=== PATIENT | female | born 1970 | race Caucasian/White ===

== ENCOUNTER 2024-12-22 12:36 | Inpatient (IN) | payer OTHER, MEDICAID, SELFPAY ==
[2024-12-22] VITALS (8 sets, daily range): BP systolic 71–106; BP diastolic 44–56; PULSE 92–110; RESP 18–24; TEMP 37.1; O2SAT 94–100; BMI 54.8
--- NOTE | 2024-12-22 13:04 | XR_ITS ---
Examination: Venous duplex lower extremity sonogram, bilateral. Date and time of exam: December 22, 2024 1309 hours INDICATIONS: Onset bilateral leg pain today Technique: Multiple sonographic images of the deep venous system have been obtained. B-mode/2-D grayscale imaging of vascular structures and Doppler spectral analysis (waveforms) and color performed Both legs are examined. Findings: Deep venous systems do not demonstrate abnormal echogenicity. No diagnostic visualization distal right superficial femoral right posterior tibial veins, left popliteal left peroneal left posterior tibial veins All visualized deep veins exhibit compressibility. All visualized deep veins exhibit augmentation. Impression: Limited study, no DVT demonstrated
--- NOTE | 2024-12-22 13:06 | XR_ITS ---
Examination: AP chest single view Technique one AP portable semiupright chest single view Date and time: December 22, 2024, 11:40 PM INDICATIONS: Patient fell 3 weeks ago with injury to the chest, chest pain FINDINGS: Minor prominence left ventricle No pneumothorax. Clavicles ribs appear intact IMPRESSION: No pneumothorax pulmonary contusion or hemothorax
--- NOTE | 2024-12-22 13:06 | EKG_ITS ---
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: : 1970 Requested By: Johann Meyer Order Number: [id number] Reading MD: Johann Meyer Measurements Intervals Superior Rate: 95 P: 27 MO: 147 QRS: -9 QRSD: 87 T: -22 QT: 336 QTc: 423 Interpretive Statements SINUS RHYTHM LOW QRS VOLTAGE IN PRECORDIAL LEADS [QRS DEFLECTION < 1.0 mV IN CHEST LEADS] POSSIBLE ANTERIOR MYOCARDIAL INFARCTION , OF INDETERMINATE AGE [30 ms Q WAVE IN V3/V4, OR R < 0.2 mV IN V4] ST ELEVATION, CONSIDER SEPTAL INJURY [MARKED ST ELEVATION W/O NORMALLY INFLECTED T-WAVE IN V1/V2] TYPE 3 BRUGADA PATTERN (NON-DIAGNOSTIC) [COVED/SADDLEBACK ST ELEVATION > 0.1mV IN 2 OF V1-3] ACUTE AL Compared to ECG 09/22/2020 13:25:23 ST (T wave) deviation now present Myocardial infarct finding still present /store/S0/[id number]/[id number].pdf
--- NOTE | 2024-12-22 13:07 | XR_ITS ---
Examination: Tibia-Fibula, left , 2 views Technique: Tibia-fibula AP lateral 2 views Date and time of exam: December 18,025 1341 hours INDICATIONS: Patient fell 2 weeks ago with injury to the left lower leg, left lower leg pain. FINDINGS: Bone detail reduced by the patient's size Cortical irregularity involving the proximal tibia on the lateral side Old fracture off the fibular tip IMPRESSION: No definite acute fracture
--- NOTE | 2024-12-22 13:09 | PD.EDLOWEX ---
Lower Extremity Injury RME/HPI General Chief Complaint: General Adult/Misc Complain Stated Complaint: BILATERAL LEG PAIN Time Seen by Provider: 12/22/24 12:59 Arrival date/time: 12/22/24 12:36 RME / HPI RME / HPI Narrative: 54-year-old female patient with significant history of bilateral chronic lymphedema, nonambulatory for more than 9 years, wheelchair-bound, hypertension diabetes mellitus, seizure disorder, was brought in by EMS for evaluation regarding worsening left lower leg swelling, chronic wound to the left lower leg, and pain to the left lower leg. Patient denies any fever denies any abdominal pain denies any chest pain. Patient told me that yesterday her left lower leg got stuck in the bed. Been taking Tylenol for the pain. Related Data Home Medications ?Medication ?Instructions ?Recorded ?Confirmed carbamazepine 100 mg 100 mg PO BID 09/23/20 09/23/20 tablet,extended release,12 hr Allergies Allergy/AdvReac Type Severity Reaction Status Date / Time aspirin Allergy Severe Difficulty Verified 04/18/22 18:45 Breathing codeine Allergy Severe Difficulty Verified 04/18/22 18:45 Breathing levetiracetam (From Keppra) Allergy Severe Difficulty Verified 04/18/22 18:45 Breathing morphine Allergy Severe Difficulty Verified 04/18/22 18:45 Breathing Penicillins Allergy Severe Difficulty Verified 04/18/22 18:45 Breathing Review of Systems Review of Systems Narrative Review of Systems: Review of system reviewed and within normal limits except mentioned in HPI ED Exam Narrative Physical exam: VITAL SIGNS: Reviewed. GENERAL APPEARANCE: Alert and interactive, follows commands, no acute distress, HEAD AND FACE: Non-traumatic. ENT: PERRL, pink conjunctivitis, eyelid no trauma, Mucous membrane moist. NECK: Supple, nontender, no nuchal rigidity. CHEST: No tenderness, no crepitus, no paradoxical movement, no retractions. LUNGS: Clear, well ventilated, symmetric, no rales, no wheezing, no ronchi, no stridor, good breath sounds bilaterally. HEART: Regular rate, regular rhythm, no murmur, no gallops. ABDOMEN: Soft, positive bowel sounds, nondistended, no guarding, nontender, no rebound, no masses, RECTAL: Deferred. GENITAL: Deferred. NEUROLOGICAL: Gross motor function intact sensory function intact, Appropriate for age. MUSCULOSKELETAL: low back nontender, full range of motion. EXTREMITIES:+ Significant bilateral lower leg swelling, abrasion noted to the lateral leg on the left, with dressing, diffuse tenderness whole lower extremity left. Mild erythema, limited range of motion. Bilateral distal pulses nonpalpable due to leg swelling. SKIN: Color pink, dry, no rash, no lacerations, no abrasions, no contusions. LYMPHATICS: Deferred. Course Quality Measures none Orders Category Date Time Status COVID-19 Screening Questionnaire NOW Care 12/22/24 16:32 Active Decision to Admit X1 Care 12/22/24 16:32 Active EKG (ED ONLY) *Do not use* NOW Care 12/22/24 13:06 Completed Occult Blood,Stool (Nursing) ONCE Care 12/22/24 13:04 Active Referral Wound Care Stat Cons 12/22/24 16:04 Active EKG (ED Only) Stat Exams 12/22/24 13:06 Ordered US venous doppler LE BI Stat Exams 12/22/24 13:04 Completed XR chest 1V Stat Exams 12/22/24 13:06 Completed XR tibia fibula LT 2V Stat Exams 12/22/24 13:07 Completed BNP [B-Type Natriuretic Peptide] Stat Lab 12/22/24 14:15 Completed Blood Culture (Lab) Stat Lab 12/22/24 14:10 Received CBC Stat Lab 12/22/24 14:15 Completed Comprehensive Metabolic Panel Stat Lab 12/22/24 14:15 Completed Lactate (Lactic Acid) Stat Lab 12/22/24 14:15 Results Procalcitonin Stat Lab 12/22/24 14:15 Completed Prothrombin Time with INR Stat Lab 12/22/24 14:15 Completed Type and Screen Stat Lab 12/22/24 14:15 Completed Urinalysis Stat Lab 12/22/24 13:04 Ordered VBG [Venous Blood Gas] Stat Lab 12/22/24 16:22 Ordered Clindamycin 900Mg Ivpb [Cleocin/D5w Ivpb] 900 mg Med 12/22/24 14:57 Discontinued Pre-Mixed [Pre-mixed Bag] 1 bag IV X1 Ringers Lactated 1000 ml [Lactated Ringers] 1,000 ml Med 12/22/24 14:53 Discontinued IV 999 mls/hr Vancomycin/Ns 1 gm Ivpb 200 ml Med 12/22/24 14:54 Discontinued IV X1 fentaNYL INJ [Sublimaze Inj] Med 12/22/24 14:53 Discontinued 50 mcg IVP X1 ONE Vital Signs Vital signs: Vital Signs Temperature 98.8 F 12/22/24 14:27 Pulse Rate 92 12/22/24 14:27 Respiratory Rate 18 12/22/24 14:27 Blood Pressure 92/56 L 12/22/24 14:27 Pulse Oximetry (%) 96 12/22/24 14:27 Oxygen Delivery Method Room Air 12/22/24 14:27 Extremity Injury, Lower MDM Narrative MDM Narrative:: 54-year-old female patient with significant history of bilateral chronic lymphedema, nonambulatory for more than 9 years, wheelchair-bound, hypertension diabetes mellitus, seizure disorder, was brought in by EMS for evaluation regarding worsening left lower leg swelling, chronic wound to the left lower leg, and pain to the left lower leg. Patient denies any fever denies any abdominal pain denies any chest pain. Patient told me that yesterday her left lower leg got stuck in the bed. Been taking Tylenol for the pain. Ultrasound bilateral lower extremities negative for DVT, x-ray of the left lower extremity is negative for abnormality. No osseous abnormality, no gas noted on the soft tissue. Laboratory workup is significant for lactic acid of 7.6, creatinine 1.8 potassium 3.1. Pro-Umberto was also noted to be 87. Chest x-ray showed no acute pathology noted. EKG showed sinus rhythm, ventricular rate 96 bpm, no ST segment elevation depression noted. Patient received clindamycin IV, IV fluids, fentanyl IV,. Pitts catheter was inserted. Plan of care discussed with the patient, who needs to be admitted for further management. I placed a referral to wound care nurse. Patient data External records reviewed:: None Clinical information provided by:: patient Social determinants that could affect healthcare access:: none Patient has the following chronic illnesses:: Hypertension diabetes mellitus, nonambulatory, wheelchair-bound, bilateral chronic leg lymphedema. How is presenting disease/condition affected by chronic disease/condition?: exacerbated by Evaluation data The following diagnostics were reviewed and interpreted by me:: lab results, radiology exam(s) and EKG tracing(s) Lab and/or radiology exams considered but not ordered:: None Interpretation Summary: See results MDM Medications / Prescriptions Medications or Prescriptions considered but not ordered:: None Medication administrations:: Medication Administration History Discontinued Medications Fentanyl Citrate (Fentanyl Cit Inj 50 Mcg/Ml Amp 2ml) 50 mcg IVP X1 ONE Stop: 12/22/24 14:54 Last Admin: 12/22/24 15:56 Dose: 50 mcg Documented By: KITTY Lactated Ringer's (Lactated Ringers) 1,000 mls @ 999 mls/hr IV .Q1H1M ONE Stop: 12/22/24 15:53 Vancomycin/Sodium Chloride (Vancomycin/Ns 1 Gm Ivpb) 200 mls @ 120 mls/hr IV X1 ONE Stop: 12/22/24 16:33 Clindamycin Phosphate 900 mg/ (IV Miscellaneous Supplies) 50 mls @ 50 mls/hr IV X1 ONE Stop: 12/22/24 15:56 Last Admin: 12/22/24 15:58 Dose: 50 mls/hr Documented By: KITTY Clindamycin IV, IV fluids, fentanyl Consultations Consultation(s) initiated? (list below): No Diagnosis Extremity Injury, Lower Differential Diagnosis: other (Left lower leg cellulitis, chronic lymphedema bilateral lower extremity, diabetes hypertension) Most likely diagnosis given after review of the tests above:: Bilateral lower leg chronic lymphedema, lower leg cellulitis of the left Admission Indicated Admission indicated?: indicated Admission Request Was there a request for admission?: Yes Admission Attestation Admission request attestation: Discussed case with [Dr. Anne] from Hospitalist service regarding admission. Discussed patients ED course, exam findings, labs, and radiology results. The Hospitalist [agrees] to accept the patient for admission. Disposition Plan Disposition Plan: Admit Discharge Plan Plan Patient Disposition: Admit Acute Care w/in Hospital Discharge Disposition comment: Stable Prescriptions/Referrals Prescriptions/Med Rec: No Action carbamazepine 100 mg Tablet Extended Release 12 Hr 100 mg PO BID Referrals: Lee Singer MD [Primary Care Provider] - In 1 week Problem List Clinical Impression: Cellulitis of left leg, Lymphedema Patient/Caregiver Discharge Instructions Discharge Activity: activity as tolerated Print Language: Korean Stand Alone Forms: Ira Award Info., Patient Portal Info Letter
[2024-12-22 14:29] LABS: Lactate (Lactic Acid) 7.6 mMol/L (0.4-2.0)
[2024-12-22 14:32] LABS: Basophils # (Auto) 0.0 Thou/mm3 (0.0-0.2); Basophils % (Auto) 1 % (0-2.5); Eosinophils # (Auto) 0.0 Thou/mm3 (0.0-0.5); Eosinophils % (Auto) 0 % (0-10); Hematocrit 39.2 % (36.0-46.0); Hemoglobin 12.4 g/dL (12.0-16.0); Immature Granulocytes Auto 0.02 Thou/mm3 (0.00-0.00); Lymphocytes # (Auto) 0.2 Thou/mm3 (1.0-4.8); Lymphocytes % (Auto) 3 % (10-50); Mean Corpuscular HGB Conc 31.6 g/dl (31.0-37.0); Mean Corpuscular Hemoglobin 25.5 pg (25.0-35.0); Mean Corpuscular Volume 81 fL (80-100); Monocytes # (Auto) 0.2 Thou/mm3 (0.0-0.8); Monocytes % (Auto) 3 % (0-12); Neutrophils # (Auto) 5.4 Thou/mm3 (1.8-7.7); Neutrophils % (Auto) 93 % (37-80); Nucleated Red Blood Cell # 0.00 Thou/mm3 (0.00-0.00); Nucleated Red Blood Cell % 0 /100 WBC (0); Platelet Count 175 Thou/mm3 (140-440); RDW Standard Deviation 46.8 fL (36.4-46.3); Red Blood Count 4.87 Miln/mm3 (4.00-5.20); White Blood Count 5.8 Thou/mm3 (3.6-11.0)
[2024-12-22 14:45] LABS: INR 1.2 (0.9-1.3); Prothrombin Time 12.8 Seconds (9.0-12.2)
[2024-12-22 14:50] LABS: B-Type Natriuretic Peptide 385 pg/mL (0-100)
[2024-12-22 15:04] LABS: Alanine Aminotransferase 14 U/L (10-49); Albumin, Serum 3.8 gm/dL (3.5-5.0); Albumin/Globulin Ratio 1.6 (1.2-2.2); Alkaline Phosphatase 68 U/L (46-116); Anion Gap 16 (7-16); Aspartate Amino Transferase 21 U/L (0-34); BUN/Creatinine Ratio 8 Ratio (12-20); Bilirubin,Total 2.2 mg/dL (0.3-1.2); Blood Urea Nitrogen 14 mg/dL (9-23); Calcium 8.8 mg/dL (8.3-10.6); Calcium (Corrected) 9.0 mg/dL (8.5-10.1); Carbon Dioxide 21.1 mMol/L (20.0-31.0); Chloride 102 mMol/L (98-107); Creatinine (Component) 1.8 mg/dL (0.6-1.3); Estimated Creatinine Clearance 46.5 mL/min (>60); Globulin 2.4 gm/dL (2.3-3.5); Glucose 126 mg/dL (74-106); Osmolality,Calculated 280 (275-295); Potassium 3.1 mMol/L (3.4-5.1); Sodium 139 mMol/L (136-145); Total Protein 6.2 gm/dL (5.7-8.2); eGFR 33 See Note
[2024-12-22 15:31] LABS: Procalcitonin 87.05 ng/ml (0.0-0.49)
[2024-12-22] MEDS: fentaNYL CIT INJ 50 mCg/ML AMP 2ML IVP (15:56)
[2024-12-22] MEDS: CLINDAMYCIN 900MG IVPB 900 MG in PRE-MIXED 1 BAG 50 MG IV (15:58)
[2024-12-22 16:22] LABS: Band Neutrophils (Manual) 45 % (0-6); Lymphocytes (Manual) 4 % (20-44); Monocytes (Manual) 12 % (2-9); Myelocytes (Manual) 5 % (0-0); Neutrophils (Manual) 30 % (50-70)
[2024-12-22 16:23] LABS: Metamyelocytes (Manual) 4 % (0-0)
[2024-12-22 17:01] LABS: Base Excess, Venous -5 (-3-3); O2 Saturation, Venous 46 % (96-97); PCO2, Venous 37 mmHg (36-56); PO2, Venous 27 mmHg (15-58); pH, Venous 7.35 (7.33-7.66)
[2024-12-22] MEDS: RINGERS LACTATED 1000 ML 1,000 ML 999 ML IV ×3 (17:16→21:34)
--- NOTE | 2024-12-22 17:18 | PD.RESHP ---
Documentation for date of: 12/22/24 HPI History of Present Illness Chief complaint: Left leg pain History of present illness: 54-year-old female with past medical history of prior IL?, Insulin-dependent type 2 diabetes, lymphedema, lipedema, asthma, epilepsy, morbid obesity, nonambulatory for 9 years, wheelchair-bound presenting to the ED on 12/22 with left lower extremity pain and oozing. Patient states that about 3 weeks ago she slammed her left leg on a brick wall and ever since that time her left leg has progressively worsened and started oozing. Patient lives at home and is largely immobile and requires agility instructor in the form of her grandson who takes care of her. Patient has not been seen by outpatient wound care as she says her motorized wheelchair has been broken. Patient also states that she has had a heart attack in the past but has never followed up with cardiology. Patient also has asthma but she denies having any shortness of breath at this time, uses albuterol twice a week. Medical history: As stated above Surgical history: Denies Allergies: Aspirin, codeine, Keppra, morphine, penicillin causes dyspnea Medications: Pending med rec Family history: Patient's mother and grandmother from breast cancer, denies having any family history of heart attack or stroke Social history: Patient lives at home, grandson agility instructor, denies any alcohol, tobacco or illicit drug use ROS: All 12 systems assessed and the patient denies unless otherwise stated in HPI In the ED, patient presented mildly hypotensive 92/56, heart rate of 92, respiratory rate of 18, afebrile satting 96 on room air. Pertinent lab findings include WBC of 5.8, potassium 3.1, creatinine 1.8, eGFR of 33, lactic acid initially 7.1 uptrending to 8.0, T. bili of 2.2, AST 21, ALT 14, BNP of 385, Pro-Umberto of 87. Urinalysis shows signs of urinary tract infection. Venous Doppler study is negative for DVT, chest x-ray does not show any active disease and tibia/fibula x-ray shows no acute fracture. Patient will be admitted for sepsis secondary to urinary tract infection and cellulitis will be treated with IV antibiotics and IV fluid resuscitation. Exam Vital Signs Temp Pulse Resp BP Pulse Ox O2 Del Method 98.8 F 96 18 106/47 L 100 Room Air 12/22/24 14:27 12/22/24 15:57 12/22/24 15:57 12/22/24 15:57 12/22/24 15:57 12/22/24 15:57 Narrative Exam Physical Exam: GENERAL: Awake, answering questions appropriately, appears stated age, morbidly obese HEENT: NC/AT. Moist mucosa. PERRLA/EOMI. CARDIO: Heart RRR, no obvious murmurs, no JVD. PULM: Distant lung sounds. Difficult to discern on auscultation of clear, no crackles/Rales/wheezing auscultated GI: Abdomen soft, morbidly obese, nontender on palpation of all 4 quadrants, borborygmi apparent SKIN/MSK/EXT: Upper extremity cyanosis on fingertips. Significant bilateral lipedema with lichenification, left leg has serosanguineous oozing wound which is wrapped. Unable to assess pedal pulses but patient able to move all 4 extremities NEURO: Oriented x3, no focal neurologic deficits Results: Labs 12/23/24 09:46 12/23/24 17:53 Labs: Short CBC 12/22/24 Range/Units 14:15 WBC 5.8 (3.6-11.0) Thou/mm3 Hgb 12.4 (12.0-16.0) g/dL Hct 39.2 (36.0-46.0) % Plt Count 175 (140-440) Thou/mm3 BMP 12/22/24 14:15 Sodium 139 Potassium 3.1 L Chloride 102 Carbon Dioxide 21.1 BUN 14 Creatinine 1.8 H Glucose 126 H Calcium 8.8 Liver Function 12/22/24 Range/Units 14:15 Total Bilirubin 2.2 H (0.3-1.2) mg/dL AST 21 (0-34) U/L ALT 14 (10-49) U/L Alkaline Phosphatase 68 (46-116) U/L Albumin 3.8 (3.5-5.0) gm/dL ABG Interpretation ABG results: 12/22/24 16:49 VBG pH 7.35 VBG pCO2 37 VBG pO2 27 VBG Base Excess -5 L Quality Measures Quality Measures none Medications Home Medications and Allergies Home Medications ?Medication ?Instructions ?Recorded ?Confirmed ?Type carbamazepine 100 mg 100 mg PO BID 09/23/20 09/23/20 History tablet,extended release,12 hr albuterol sulfate 90 mcg/actuation 2 puff inhalation Q4H PRN 12/23/24 12/23/24 History aerosol inhaler shortness of breath or wheezing atorvastatin 40 mg tablet 40 mg PO ONCE HS 12/23/24 12/23/24 History docusate sodium 100 mg capsule 100 mg PO DAILY PRN constipation 12/23/24 12/23/24 History ergocalciferol (vitamin D2) 1,250 50,000 unit PO .once a week 12/23/24 12/23/24 History mcg (50,000 unit) capsule ferrous sulfate 325 mg (65 mg 325 mg PO DAILY 12/23/24 12/23/24 History iron) tablet (FeroSul) insulin aspart U-100 100 unit/mL 20 unit subcut .with meals 12/23/24 12/23/24 History (3 mL) subcutaneous pen losartan 50 mg tablet 50 mg PO DAILY 12/23/24 12/23/24 History omeprazole 20 mg capsule,delayed 20 mg PO HS 12/23/24 12/23/24 History release tretinoin 0.025 % topical cream applic topical DAILY UD 12/23/24 History Allergies Allergy/AdvReac Type Severity Reaction Status Date / Time aspirin Allergy Severe Difficulty Verified 04/18/22 18:45 Breathing codeine Allergy Severe Difficulty Verified 04/18/22 18:45 Breathing levetiracetam (From Keppra) Allergy Severe Difficulty Verified 04/18/22 18:45 Breathing morphine Allergy Severe Difficulty Verified 04/18/22 18:45 Breathing Penicillins Allergy Severe Difficulty Verified 04/18/22 18:45 Breathing Visit Medications Acetaminophen (Acetaminophen 325 Mg Tablet) 650 mg PO Q6H PRN PRN Reason: Pain 1-3 and/or Fever >100.1 Stop: 01/21/25 17:08 Hydrocodone Bitart/Acetaminophen (Hydrocodone/Apap 10/325 Tab) 1 tab PO Q4HR PRN PRN Reason: PAIN SCALE 7-10 (Severe Stop: 12/27/24 17:08 Hydrocodone Bitart/Acetaminophen (Hydrocodone/Apap 5/325 Tablet) 1 tab PO Q4HR PRN PRN Reason: PAIN SCALE 4-6 (Moderate Stop: 12/27/24 17:08 Dextrose (Dextrose 50%-Water Inj 50 Ml Syringe) 25 ml IV Q15MIN PRN PRN Reason: BG 50-70 responsive npo pt Stop: 01/21/25 17:08 Dextrose (Dextrose 50%-Water Inj 50 Ml Syringe) 50 ml IV Q15MIN PRN PRN Reason: BG <50 OR BG <70 & pt unresponsive Stop: 01/21/25 17:08 Glucagon (Glucagon Inj 1 Mg Vial) 1 mg IM Q15MIN PRN PRN Reason: BG <70, and no IV access Heparin Sodium (Porcine) (Heparin Sod Inj 5000 Unit/Ml Vial) 5,000 unit SC Q12HR TRACY Stop: 01/05/25 20:59 Cefepime HCl 2 gm/ Sodium (Chloride) 50 mls @ 100 mls/hr IV Q12HR TRACY; Protocol Stop: 12/29/24 17:12 Lactated Ringer's (Lactated Ringers) 1,000 mls @ 75 mls/hr IV .[id number] ONE Stop: 12/23/24 06:34 Insulin Human Lispro (Insulin Lispro (Admelog) 1 Unit/0.01 Ml Unit) 0 unit SC [facility]; Protocol Stop: 01/21/25 20:59 Ondansetron HCl (Ondansetron Inj 2 Mg/Ml Inj 2 Ml) 4 mg IVP Q6H PRN; Protocol PRN Reason: NAUSEA OR VOMITING Stop: 01/21/25 17:08 Pharmacy Consult (Vancomycin Pharmacy To Dose 1 Each Each) 1 each IV QDAY PRN PRN Reason: CONSULT Stop: 01/22/25 08:59 Potassium Chloride (Potassium Chloride 20 Meq Tabcr) 40 meq PO X1 ONE Stop: 12/22/24 17:16 Potassium Chloride (Potassium Chloride 20 Meq Tabcr) 40 meq PO X1 ONE Stop: 12/22/24 21:01 Sennosides (Senna Tablet) 1 tab PO QDAY PRN; Protocol PRN Reason: constipation Stop: 01/21/25 17:08 Discontinued Medications Fentanyl Citrate (Fentanyl Cit Inj 50 Mcg/Ml Amp 2ml) 50 mcg IVP X1 ONE Stop: 12/22/24 14:54 Last Admin: 12/22/24 15:56 Dose: 50 mcg Lactated Ringer's (Lactated Ringers) 1,000 mls @ 999 mls/hr IV .Q1H1M ONE Stop: 12/22/24 15:53 Last Admin: 12/22/24 17:16 Dose: 999 mls/hr Vancomycin/Sodium Chloride (Vancomycin/Ns 1 Gm Ivpb) 200 mls @ 120 mls/hr IV X1 ONE Stop: 12/22/24 16:33 Clindamycin Phosphate 900 mg/ (IV Miscellaneous Supplies) 50 mls @ 50 mls/hr IV X1 ONE Stop: 12/22/24 15:56 Last Admin: 12/22/24 15:58 Dose: 50 mls/hr Assessment & Plan Plan 54-year-old female with past medical history of prior IL?, Insulin-dependent type 2 diabetes, lymphedema, lipedema, asthma, epilepsy, morbid obesity, nonambulatory for 9 years, wheelchair-bound presenting with left lower extremity pain and oozing will be admitted for sepsis secondary to urinary tract infection and cellulitis will be treated with IV antibiotics and IV fluid resuscitation. #Sepsis secondary to #Urinary tract infection #Cellulitis #Lactic acidosis, type I #Lipedema, chronic Secondary to immobilization, patient has chronic lymphedema/lipedema and apparently had a traumatic event on the left leg Patient presenting with bruising and erythema of the left extremity likely source of infection No WBC elevation, lactic acid of 8, Pro-Umberto elevated and the patient has an YOU Plan: Initiated IV antibiotic regimen with IV cefepime and vancomycin, pharmacy to dose Blood and urine cultures pending Trending lactic acid, if lactic continues to go up initiate sepsis bolus which has not been initiated in the ED IV fluid resuscitation #Acute hypoxic respiratory failure secondary to unspecified source Differentials include ABDIEL/OHS, possible heart failure On exam, patient has cyanosis of the fingertips BNP is mildly elevated at 385 VBG does not show any concerning signs at this time Plan: Follow-up on ABG Initiated BiPAP/CPAP, if there is no CO2 retention can consider switching to high flow nasal cannula #Acute kidney injury Patient's baseline creatinine of 0.7, currently presenting with creatinine of 1.8 UA creatinine ratio of 8 likely intrarenal pathology versus prerenal Urinalysis shows 2+ proteinuria Plan: IV fluid resuscitation Follow-up with morning labs Avoid nephrotoxic agents Renally dose medications if appropriate #Possible history of coronary artery disease? Patient apparently has had an IL in the past but denies taking any cardiac medication or follows up with any corporate events director Patient denies having any chest pain at this time Plan: Echo ordered, will consider cardiology consultation #Morbid obesity #Elevated bilirubin T. bili elevated 2.2 Patient does not have abdominal tenderness Plan: Will monitor with morning labs Health Maintenance: Lines: PIV Diet: Carb consistent low Bowel: Senna as needed GI prophylaxis: Not needed DVT prophylaxis: Heparin subcu Dispo: IV antibiotics for UTI and cellulitis, wound care Code: Full Patient seen and assessed with attending Dr. Charleen Gutierrez DO PGY-2 Internal Medicine - GME Attending Provider Attestation/Addendum After examination of the patient and review of the clinical data I feel that this patient needs admission to the hospital for further treatment/evaluation. I have discussed and was present for the essential components of the history, physical examination, diagnosis, and treatment plan with the resident. I agree with the patient's care as documented by the resident and amended herein by me. Gabriel Villaseñor DO. Although this document has been carefully reviewed, there may still be some phonetic and other typographical errors. These errors are purely grammatical due to imperfections in the software program and should not be construed in any way to compromise the substance of the patient's medical care during this visit.
[2024-12-22 17:19] LABS: Lactate (Lactic Acid) 8.0 mMol/L (0.4-2.0)
[2024-12-22 17:23] LABS: Reflex Lactate? Y
[2024-12-22] MEDS: CEFEPIME INJ 2 GM in SODIUM CHLORIDE 0.9% (Popper) 50 ML IV ×2 (17:34→23:08)
[2024-12-22 18:27] LABS: Collection Type, Urine Clean Catch
--- NOTE | 2024-12-22 18:31 | ECHO_ITS ---
Transthoracic Echo Report Ht (in): 62 Wt (lb): 300 Exam Location: Echo Lab Status: Inpatient Tar And Ammonia Pump Operator: Jennifer Block Indications: Procedure Performed: BP: 97 / 78 HR: 117 MEASUREMENTS (Male / Female) Normal Values 2D ECHO LV Diastolic Diameter PLAX 4.7 cm 4.2 - 5.9 / 3.9 - 5.3 cm LV Systolic Diameter PLAX 2.9 cm IVS Diastolic Thickness 0.8 cm 0.6 - 1.0 / 0.6 - 0.9 cm LVPW Diastolic Thickness 1.3 cm 0.6 - 1.0 / 0.6 - 0.9 cm LV Relative Wall Thickness 0.4 LVOT Diameter 2.3 cm LA Volume Index 16.1 cm?/m? 16 - 28 cm?/m? Ascending Aorta Diameter 3.0 cm M-MODE AV Cusp Separation MM 1.6 cm DOPPLER AV Peak Velocity 140.0 cm/s AV Peak Gradient 7.8 mmHg AV Mean Gradient 5.0 mmHg AV Velocity Time Integral 24.8 cm LVOT Peak Velocity 90.9 cm/s LVOT Peak Gradient 3.3 mmHg LVOT Velocity Time Integral 18.2 cm LVOT Cardiac Index 3493.8 cm?/min?m? AV Area Cont Eq vti 3.0 cm? AV Area Cont Eq pk 2.7 cm? MV Area PHT 6.3 cm? Mitral E Point Velocity 55.7 cm/s Mitral A Point Velocity 64.6 cm/s Mitral E to A Ratio 0.9 LV E' Lateral Velocity 8.1 cm/s Mitral E to LV E' Lateral Ratio 6.9 LV E' Septal Velocity 6.2 cm/s Mitral E to LV E' Septal Ratio 9.0 TR Peak Velocity 251.0 cm/s TR Peak Gradient 25.2 mmHg PV Peak Velocity 106.0 cm/s PV Peak Gradient 4.5 mmHg FINDINGS Left Ventricle Normal left ventricular size, wall thickness, systolic function with no obvious regional wall motion abnormalities. Indeterminate diastolic dysfunction. The ejection fraction is visually estimated at 40-45%. Right Ventricle The right ventricle is normal in size and systolic function. The estimated right ventricular systolic pressure, 39 mmHg with RAP 8. Mild HTN Left Atrium The left atrium is normal by two-dimensional, color flow and Doppler imaging with no structural abnormalities, no thrombus formation present. Right Atrium The right atrium is normal by two-dimensional imaging, color flow and Doppler imaging with no structural abnormalities, no thrombus formation present. Atrial Septum The interatrial septum appears normal with no evidence of a shunt. Aorta The aorta is normal by two-dimensional, color flow and Doppler interrogation. Mitral Valve The mitral valve is normal by two-dimensional, color flow and Doppler interrogation. Trace mitral regurgitation. Aortic Valve Aortic valve sclerosis without stenosis. Tricuspid Valve The tricuspid valve is normal by two-dimensional, color flow and Doppler interrogation. There is mild tricuspid valve regurgitation. Pulmonic Valve The pulmonic valve is not well visualized. There is no significant pulmonic valve regurgitation. Vessels The pulmonary artery appears normal. The inferior vena cava pulmonary and hepatic veins appear normal. Pericardium The pericardium is normal by two-dimensional imaging. There is no significant pericardial effusion. Other Findings TDS due to patient morbid and laying on supine view, couldn't move. (patient had open wounds under breast) CONCLUSIONS Indication: AHRF Morbid obesity, edema, elevated BNP Over all poor images due to body habitus and technically difficult study. Normal left ventricular size and function.Stage I diastolic dysfunction. Estimated ejection fraction is 40- 45%. Normal right ventricular size and function. RVSP 39 mm Hg with RAP 8. Mild pulmonary HTN Trace MR and Mild TR. TDS due to patient morbid and laying on supine view, couldn't move. (patient had open wounds under breast) Alex Chapa (Electronically Signed) Final Date: 23 December 2024 19:33
[2024-12-22 18:41] LABS: Bacteria,Urine 3+; Bilirubin,Urine 1+ (Negative); Blood,Urine 1+ (Negative); Color,Urine Drk-Yellow (Lt Yel-Yel); Glucose, Urine Trace (Negative); Hyaline Casts,Urine 7 /hpf (0-1); Ketones,Urine Trace (Negative); Leukocyte Esterase,Urine Positive (Negative); Nitrite,Urine Negative (Negative); PH,Urine 5.5 (5.0-7.0); Protein,Urine 2+ (Neg - Trace); RBC,Urine 21 /hpf (0-3); Specific Gravity,Urine 1.024 (1.001-1.035); Squamous Epithelial Cell,Urine 6 /hpf (0-5); Urobilinogen,Urine 4.0 mg/dL (0.0-1.0); WBC,Urine 90 /hpf (0-5)
[2024-12-22 18:55] LABS: Clarity,Urine Turbid (Clear/Hazy)
[2024-12-22] MEDS: RINGERS LACTATED 1000 ML 1,000 ML 75 ML IV (19:30)
[2024-12-22] MEDS: VANCOMYCIN/D5W 1500 MG IVPB 300 ML 120 MG IV (19:31)
[2024-12-22 20:16] LABS: Reflex Lactate? Y
[2024-12-22 20:37] LABS: Lactate (Lactic Acid) 7.1 mMol/L (0.4-2.0)
--- NOTE | 2024-12-22 20:59 | PC.RT ---
abg attempted unsuccessful pt on RA DR. moise morris wants a retry abg RT chon given report and made aware
[2024-12-22] MEDS: HEPARIN SOD INJ 5000 UNIT/ML VIAL SC (23:04)
[2024-12-22 23:25] LABS: Reflex Lactate? Y
[2024-12-22 23:34] LABS: Lactate (Lactic Acid) 6.2 mMol/L (0.4-2.0)
[2024-12-22 23:44] LABS: Base Excess -5 (-3-3); HCO3 20 mEq/L (20-26); Inspired Oxygen, FIO2 21 %; O2 Saturation 92 % (91-98); PCO2 33 mmHg (32.0-48.0); PO2 60 mmHg (83-108); pH, Arterial 7.39 (7.35-7.45)
[2024-12-22 23:45] LABS: Allen Test Performed/OK; Puncture Site Left Radial
[2024-12-23] VITALS (152 sets, daily range): BP systolic 53–138; BP diastolic 37–97; PULSE 89–201; RESP 13–68; TEMP 36–37.1; O2SAT 78–100; BMI 63.8
--- NOTE | 2024-12-23 00:13 | XR_ITS ---
Examination: AP chest single view Technique one AP portable upright chest single view Date and time: December 23, 2024, 0027 hrs., Comparison 12/22/2024 Indications: Shortness of breath today. Findings: Mild enlargement cardiac contour Moderate vascular congestion. Atelectasis in the left lower lung zone. No lobar pneumonia or pulmonary edema Poor inspiration Impression: Poor inspiratory effort chest x-ray Moderate vascular congestion
[2024-12-23] MEDS: RINGERS LACTATED 1000 ML 1,000 ML 999 ML IV (00:31)
--- NOTE | 2024-12-23 00:34 | PD.RESEVENT ---
Documentation for date of: 12/23/24 Event Note Event Note: Rapid response was called at 12:05am low blood pressure. Upon arrival vitals were BP 87/54, heart rate 114, RR19 saturating 92% on room air. Patient reports shortness of breath and back pain. Also noted that patient has been having poor urine output. She denies chest pain, nausea vomiting, dizziness. However upon evaluation patient was clammy and in mild respiratory distress. SEC REPORTING CONSULTANT was called. Orders: CMP, magnesium, phosphorus, creatinine kinase, lactate, bladder scan, BiPAP, blood glucose Intervention: bolus 2L, patient put on 2 L nasal cannula however still noted labored breathing. Advised the patient to start BiPAP, but she declined, stating that she does not want anything on her face. After discussion, decided to initiate 5 L of nasal cannula oxygen instead. Will continue to monitor patient, if still low urine output, low blood pressure may consider upgrade to ICU. Patient seen and assessed under supervision of attending physician and discuss with senior resident Dr. Bocanegra PGY-2 Mylene Mata MD PGY-1, Internal Medicine Please note: this document was transcribed using voice recognition technology; minor inaccuracies may be present.
[2024-12-23 00:47] LABS: Alanine Aminotransferase 15 U/L (10-49); Albumin, Serum 3.2 gm/dL (3.5-5.0); Albumin/Globulin Ratio 1.5 (1.2-2.2); Alkaline Phosphatase 59 U/L (46-116); Anion Gap 14 (7-16); Aspartate Amino Transferase 30 U/L (0-34); BUN/Creatinine Ratio 7 Ratio (12-20); Bilirubin,Total 1.9 mg/dL (0.3-1.2); Blood Urea Nitrogen 14 mg/dL (9-23); Calcium 8.4 mg/dL (8.3-10.6); Calcium (Corrected) 9.0 mg/dL (8.5-10.1); Carbon Dioxide 21.6 mMol/L (20.0-31.0); Chloride 102 mMol/L (98-107); Creatine Kinase 515 U/L (34-171); Creatinine (Component) 2.0 mg/dL (0.6-1.3); Estimated Creatinine Clearance 41.9 mL/min (>60); Globulin 2.1 gm/dL (2.3-3.5); Glucose 93 mg/dL (74-106); Magnesium 1.2 mg/dL (1.6-2.6); Osmolality,Calculated 276 (275-295); Phosphorous 2.9 mg/dL (2.4-5.1); Potassium 3.7 mMol/L (3.4-5.1); Sodium 138 mMol/L (136-145); Total Protein 5.3 gm/dL (5.7-8.2); eGFR 29 See Note
[2024-12-23] MEDS: Magnesium Sulfate 4 GM Ivpb 4 GM/50 ML BAG IV ×3 (01:26→22:19)
[2024-12-23] MEDS: SODIUM CHLORIDE 0.9% 1000 ML 1,000 ML 150 ML IV (01:26)
[2024-12-23 02:32] LABS: Reflex Lactate? Y
[2024-12-23 03:03] LABS: Basophils # (Auto) 0.0 Thou/mm3 (0.0-0.2); Basophils % (Auto) 0 % (0-2.5); Eosinophils # (Auto) 0.0 Thou/mm3 (0.0-0.5); Eosinophils % (Auto) 0 % (0-10); Hematocrit 38.3 % (36.0-46.0); Hemoglobin 12.2 g/dL (12.0-16.0); Immature Granulocytes Auto 0.17 Thou/mm3 (0.00-0.00); Lymphocytes # (Auto) 0.2 Thou/mm3 (1.0-4.8); Lymphocytes % (Auto) 4 % (10-50); Mean Corpuscular HGB Conc 31.9 g/dl (31.0-37.0); Mean Corpuscular Hemoglobin 25.6 pg (25.0-35.0); Mean Corpuscular Volume 81 fL (80-100); Monocytes # (Auto) 0.2 Thou/mm3 (0.0-0.8); Monocytes % (Auto) 4 % (0-12); Neutrophils # (Auto) 4.2 Thou/mm3 (1.8-7.7); Neutrophils % (Auto) 88 % (37-80); Nucleated Red Blood Cell # 0.00 Thou/mm3 (0.00-0.00); Nucleated Red Blood Cell % 0 /100 WBC (0); Platelet Count 149 Thou/mm3 (140-440); RDW Standard Deviation 47.5 fL (36.4-46.3); Red Blood Count 4.76 Miln/mm3 (4.00-5.20); White Blood Count 4.8 Thou/mm3 (3.6-11.0)
[2024-12-23 03:07] LABS: Lactic Acid, 3 HR 6.0 mMol/L (0.4-2.0)
[2024-12-23 03:30] LABS: Glucose Estimated Average 114 mg/dL (80-131); Hemoglobin A1C 5.6 % Hgb (4.8-6.0)
[2024-12-23 03:32] LABS: Alanine Aminotransferase 18 U/L (10-49); Albumin, Serum 3.3 gm/dL (3.5-5.0); Albumin/Globulin Ratio 1.5 (1.2-2.2); Alkaline Phosphatase 60 U/L (46-116); Anion Gap 15 (7-16); Aspartate Amino Transferase 35 U/L (0-34); BUN/Creatinine Ratio 7 Ratio (12-20); Bilirubin,Total 2.0 mg/dL (0.3-1.2); Blood Urea Nitrogen 14 mg/dL (9-23); Calcium 8.3 mg/dL (8.3-10.6); Calcium (Corrected) 8.9 mg/dL (8.5-10.1); Carbon Dioxide 21.4 mMol/L (20.0-31.0); Cardiac Risk Estimate 4.3 RATIO (3.7-5.6); Chloride 103 mMol/L (98-107); Cholesterol 108 mg/dL (132-200); Creatinine (Component) 2.0 mg/dL (0.6-1.3); Estimated Creatinine Clearance 41.9 mL/min (>60); Globulin 2.2 gm/dL (2.3-3.5); Glucose 84 mg/dL (74-106); HDL Cholesterol 25 mg/dL (40-60); LDL Cholesterol,Calculated 54 mg/dL (0-130); Magnesium 1.5 mg/dL (1.6-2.6); Osmolality,Calculated 277 (275-295); Phosphorous 3.6 mg/dL (2.4-5.1); Potassium 4.0 mMol/L (3.4-5.1); Sodium 139 mMol/L (136-145); Thyroid Stimulating Hormone 2.38 uIU/mL (0.55-4.78); Total Protein 5.5 gm/dL (5.7-8.2); Triglycerides 143 mg/dL (30-150); eGFR 29 See Note
[2024-12-23] MEDS: MIDODRINE 5 MG TABLET 10 MG PO (03:50)
[2024-12-23] MEDS: SODIUM CHLORIDE 0.9% 250 ML 250 ML 999 ML IV (03:50)
--- NOTE | 2024-12-23 04:54 | PD.RESCONSUL ---
HPI Data of Consult Requesting Physician: Alf Villaseñor DO Admitting Provider: Alf Villaseñor DO Attending Provider: Alf Villaseñor DO Primary Care Provider: Lee Singer MD Consult Narrative History of present illness: 54-year-old female with past medical history of prior LA?, Insulin-dependent type 2 diabetes, lymphedema, lipedema, asthma, epilepsy, morbid obesity, nonambulatory for 9 years, wheelchair-bound presenting to the ED on 12/22 with left lower extremity pain and oozing. Patient states that about 3 weeks ago she slammed her left leg on a brick wall and ever since that time her left leg has progressively worsened and started oozing. Patient lives at home and is largely immobile and requires undercutter in the form of her grandson who takes care of her. Patient has not been seen by outpatient wound care as she says her motorized wheelchair has been broken. Patient also states that she has had a heart attack in the past but has never followed up with cardiology. Patient also has asthma but she denies having any shortness of breath at this time, uses albuterol twice a week. Medical history: As stated above Surgical history: Denies Allergies: Aspirin, codeine, Keppra, morphine, penicillin causes dyspnea Medications: Pending med rec Family history: Patient's mother and grandmother from breast cancer, denies having any family history of heart attack or stroke Social history: Patient lives at home, grandson undercutter, denies any alcohol, tobacco or illicit drug use ROS: All 12 systems assessed and the patient denies unless otherwise stated in HPI In the ED, patient presented mildly hypotensive 92/56, heart rate of 92, respiratory rate of 18, afebrile satting 96 on room air. Pertinent lab findings include WBC of 5.8, potassium 3.1, creatinine 1.8, eGFR of 33, lactic acid initially 7.1 uptrending to 8.0, T. bili of 2.2, AST 21, ALT 14, BNP of 385, Pro-Umberto of 87. Urinalysis shows signs of urinary tract infection. Venous Doppler study is negative for DVT, chest x-ray does not show any active disease and tibia/fibula x-ray shows no acute fracture. Patient was admitted to floors for sepsis secondary to cellulitis . At midnight RESIDENTIAL GLAZIER was called due to hypotension, despite aggressive fluid resuscitation patient was remained persistent hypotensive, however nursing staff was having a hard time to obtain accurate measurement due to body habitus. Repeat labs did revealed lactic acidosis which did not improved even after 5 L of fluids, Cheetah monitor was placed, patient found to be not fluid responsive. At this point decision was made to upgrade patient to ICU for pressor support. cc:: cc: Alf Villaseñor DO Review of Systems Review of Systems Systems Reviewed: All systems reviewed, normal except as documented Exam Vital Signs Temp Pulse Resp BP Pulse Ox O2 Del Method O2 Flow Rate 98.0 F 114 H 24 H 76/56 L 99 Room Air 3 12/23/24 00:05 12/23/24 03:50 12/23/24 02:57 12/23/24 03:50 12/23/24 02:57 12/22/24 23:12 12/23/24 02:57 FiO2 30 12/22/24 17:37 Narrative Exam GENERAL: Awake, answering questions appropriately, appears stated age, morbidly obese HEENT: NC/AT. Moist mucosa. PERRLA/EOMI. CARDIO: Heart RRR, no obvious murmurs, no JVD. PULM: Distant lung sounds. However limited due to body habitus GI: Abdomen soft, morbidly obese, nontender on palpation of all 4 quadrants, SKIN/MSK/EXT: Upper extremity cyanosis on fingertips. Significant bilateral lipedema with lichenification, left leg has serosanguineous oozing wound which is wrapped. Patient has sacral pressure ulcers, however was not able to assess myself due to body habitus. Pictures are on physical chart. NEURO: Oriented x3, no focal neurologic deficits Results Labs 01/08/25 10:41 01/08/25 06:43 Labs: Short CBC 12/22/24 12/23/24 Range/Units 14:15 02:50 WBC 5.8 4.8 (3.6-11.0) Thou/mm3 Hgb 12.4 12.2 (12.0-16.0) g/dL Hct 39.2 38.3 (36.0-46.0) % Plt Count 175 149 (140-440) Thou/mm3 BMP 12/22/24 12/23/2425 14:15 00:15 02:50 Sodium 139 138 139 Potassium 3.1 L 3.7 D 4.0 Chloride 102 102 103 Carbon Dioxide 21.1 21.6 21.4 BUN 14 14 14 Creatinine 1.8 H 2.0 H 2.0 H Glucose 126 H 93 84 Calcium 8.8 8.4 8.3 Cardiac Enzymes 12/23/24 Range/Units 00:15 Total Creatine Kinase 515 H (34-171) U/L Liver Function 12/22/24 12/23/24 12/23/24 Range/Units 14:15 00:15 02:50 Total Bilirubin 2.2 H 1.9 H 2.0 H (0.3-1.2) mg/dL AST 21 30 35 H (0-34) U/L ALT 14 15 18 (10-49) U/L Alkaline Phosphatase 68 59 60 (46-116) U/L Albumin 3.8 3.2 L D 3.3 L (3.5-5.0) gm/dL Urine 12/22/24 Range/Units 18:19 Urine Color Drk-Yellow A (Lt Yel-Yel) Urine Clarity Turbid A (Clear/Hazy) Urine pH 5.5 (5.0-7.0) Ur Specific [place] 1.024 (1.001-1.035) Urine Protein 2+ A (Neg - Trace) Urine Glucose (UA) Trace (Negative) ABG Interpretation ABG results: 12/22/24 12/22/24 16:49 23:40 ABG pH 7.39 ABG pCO2 33 ABG pO2 60 L ABG HCO3 20 ABG O2 Saturation 92 ABG Base Excess -5 L VBG pH 7.35 VBG pCO2 37 VBG pO2 27 VBG Base Excess -5 L Quality Measures Quality Measures none Medications Home Medications and Allergies Home Medications ?Medication ?Instructions ?Recorded ?Confirmed ?Type albuterol sulfate 90 mcg/actuation 2 puff inhalation Q4H PRN 12/23/24 12/23/24 History aerosol inhaler shortness of breath or wheezing atorvastatin 40 mg tablet 40 mg PO ONCE HS 12/23/24 12/23/24 History docusate sodium 100 mg capsule 100 mg PO DAILY PRN constipation 12/23/24 12/23/24 History ergocalciferol (vitamin D2) 1,250 50,000 unit PO .once a week 12/23/24 12/23/24 History mcg (50,000 unit) capsule ferrous sulfate 325 mg (65 mg 325 mg PO DAILY 12/23/24 12/23/24 History iron) tablet (FeroSul) losartan 50 mg tablet 50 mg PO DAILY 12/23/24 12/23/24 History omeprazole 20 mg capsule,delayed 20 mg PO HS 12/23/24 12/23/24 History release tretinoin 0.025 % topical cream 1 applic topical DAILY UD 12/23/24 12/27/24 History Allergies Allergy/AdvReac Type Severity Reaction Status Date / Time aspirin Allergy Severe Difficulty Verified 04/18/22 18:45 Breathing codeine Allergy Severe Difficulty Verified 04/18/22 18:45 Breathing levetiracetam (From [facility]) Allergy Severe Difficulty Verified 04/18/22 18:45 Breathing morphine Allergy Severe Difficulty Verified 04/18/22 18:45 Breathing Penicillins Allergy Severe Difficulty Verified 04/18/22 18:45 Breathing Visit Medications Acetaminophen (Acetaminophen 325 Mg Tablet) 650 mg PO Q6H PRN PRN Reason: Pain 1-3 and/or Fever >100.1 Stop: 01/21/25 17:08 Hydrocodone Bitart/Acetaminophen (Hydrocodone/Apap 10/325 Tab) 1 tab PO Q4HR PRN PRN Reason: PAIN SCALE 7-10 (Severe Stop: 12/27/24 17:08 Last Admin: 12/23/24 00:57 Dose: 1 tab Hydrocodone Bitart/Acetaminophen (Hydrocodone/Apap 5/325 Tablet) 1 tab PO Q4HR PRN PRN Reason: PAIN SCALE 4-6 (Moderate Stop: 12/27/24 17:08 Dextrose (Dextrose 50%-Water Inj 50 Ml Syringe) 25 ml IV Q15MIN PRN PRN Reason: BG 50-70 responsive npo pt Stop: 01/21/25 17:08 Dextrose (Dextrose 50%-Water Inj 50 Ml Syringe) 50 ml IV Q15MIN PRN PRN Reason: BG <50 OR BG <70 & pt unresponsive Stop: 01/21/25 17:08 Glucagon (Glucagon Inj 1 Mg Vial) 1 mg IM Q15MIN PRN PRN Reason: BG <70, and no IV access Heparin Sodium (Porcine) (Heparin Sod Inj 5000 Unit/Ml Vial) 5,000 unit SC Q12HR ON LICENSE OF [facility] Stop: 01/05/25 20:59 Last Admin: 12/22/24 23:04 Dose: 5,000 unit Cefepime HCl 2 gm/ Sodium (Chloride) 50 mls @ 100 mls/hr IV Q12HR ON LICENSE OF [facility]; Protocol Stop: 12/29/24 17:12 Last Admin: 12/22/24 23:08 Dose: 100 mls/hr Sodium Chloride (Ns) 1,000 mls @ 150 mls/hr IV .Q6H40M ON LICENSE OF [facility] Stop: 01/22/25 00:59 Last Admin: 12/23/24 01:26 Dose: 150 mls/hr Norepinephrine Bitartrate (Levophed In Ns 16mg/250ml) 16 mg in 250 mls @ 6.379 mls/hr IV .Q24H PRN; Protocol PRN Reason: PER protocol Stop: 01/22/25 04:50 Insulin Human Lispro (Insulin Lispro (Admelog) 1 Unit/0.01 Ml Unit) 0 unit SC ACHS ON LICENSE OF [facility]; Protocol Stop: 01/21/25 20:59 Last Admin: 12/22/24 22:47 Dose: Not Given Ondansetron HCl (Ondansetron Inj 2 Mg/Ml Inj 2 Ml) 4 mg IVP Q6H PRN; Protocol PRN Reason: NAUSEA OR VOMITING Stop: 01/21/25 17:08 Pharmacy Consult (Vancomycin Pharmacy To Dose 1 Each Each) 1 each IV QDAY PRN PRN Reason: CONSULT Stop: 01/22/25 08:59 Sennosides (Senna Tablet) 1 tab PO QDAY PRN; Protocol PRN Reason: constipation Stop: 01/21/25 17:08 Discontinued Medications Fentanyl Citrate (Fentanyl Cit Inj 50 Mcg/Ml Amp 2ml) 50 mcg IVP X1 ONE Stop: 12/22/24 14:54 Last Admin: 12/22/24 15:56 Dose: 50 mcg Lactated Ringer's (Lactated Ringers) 1,000 mls @ 999 mls/hr IV .Q1H1M ONE Stop: 12/22/24 15:53 Last Infusion: 12/22/24 19:38 Dose: Infused Vancomycin/Sodium Chloride (Vancomycin/Ns 1 Gm Ivpb) 200 mls @ 120 mls/hr IV X1 ONE Stop: 12/22/24 16:33 Clindamycin Phosphate 900 mg/ (IV Miscellaneous Supplies) 50 mls @ 50 mls/hr IV X1 ONE Stop: 12/22/24 15:56 Last Infusion: 12/22/24 17:22 Dose: Infused Lactated Ringer's (Lactated Ringers) 1,000 mls @ 75 mls/hr IV .[id number] ONE Stop: 12/23/24 06:34 Last Admin: 12/22/24 19:30 Dose: 75 mls/hr Vancomycin HCl/Dextrose (Vancomycin/D5w 1500 Mg Ivpb) 300 mls @ 120 mls/hr IV X1 ONE Stop: 12/22/24 19:59 Last Infusion: 12/22/24 23:03 Dose: Infused Lactated Ringer's (Lactated Ringers) 1,000 mls @ 999 mls/hr IV .Q1H1M ONE Stop: 12/22/24 19:21 Last Infusion: 12/22/24 23:07 Dose: Infused Lactated Ringer's (Lactated Ringers) 1,000 mls @ 999 mls/hr IV .Q1H1M ONE Stop: 12/22/24 22:03 Last Infusion: 12/22/24 23:07 Dose: Infused Lactated Ringer's (Lactated Ringers) 1,000 mls @ 999 mls/hr IV .Q1H1M ONE Stop: 12/23/24 01:10 Last Admin: 12/23/24 00:31 Dose: 999 mls/hr Magnesium Sulfate (Magnesium Sulfate Ivpb) 4 gm in 50 mls @ 12.5 mls/hr IV X1 ONE Stop: 12/23/24 04:53 Last Admin: 12/23/24 01:26 Dose: 12.5 mls/hr Lactated Ringer's (Lactated Ringers) 1,000 mls @ 200 mls/hr IV .Q5H ONE Stop: 12/22/24 22:14 Sodium Chloride (Ns) 250 mls @ 999 mls/hr IV .Q16M ONE Stop: 12/23/24 04:04 Midodrine (Midodrine 5 Mg Tablet) 10 mg PO X1 ONE Stop: 12/23/24 03:37 Last Admin: 12/23/24 03:50 Dose: 10 mg Potassium Chloride (Potassium Chloride 20 Meq Tabcr) 40 meq PO X1 ONE Stop: 12/22/24 17:16 Last Admin: 12/22/24 17:32 Dose: 40 meq Potassium Chloride (Potassium Chloride 20 Meq Tabcr) 40 meq PO X1 ONE Stop: 12/22/24 21:01 Last Admin: 12/22/24 22:57 Dose: 40 meq Assessment & Plan Plan 54-year-old female with past medical history of insulin-dependent DM type II, lymphedema, asthma, morbidly obese, history of epilepsy, nonambulatory for 9 years, wheelchair-bound was initially admitted to the medical floor for sepsis secondary to cellulitis of the left lower extremity. Over the course of the night, her clinical condition deteriorated, with concerns for distributive shock in the setting of sepsis, Despite initial fluid resuscitation, she remained persistently hypotensive, requiring transfer to the ICU for pressor support and close monitoring [employer]OCI[employer]UCATION The patient remains alert and oriented to person, place and time, without any significant of new focal deficit No seizures observed so far. Continue to monitor CVS #Shock -the Cheetah monitor was placed . The patient was not fluid-responsive, with persistent hypotension despite aggressive fluid resuscitation. Given the lack of improvement with fluid administration, distributive shock secondary to sepsis/bacteremia is the most likely etiology. However, cardiogenic shock or hypovolemic shock cannot be completely ruled out, Further monitoring with a Cheetah monitor will help clarify the hemodynamic status and guide further management. The patient presented with persistent hypotension despite adequate fluid resuscitation, requiring levo infusion to maintain MAP above 65 Heart rate remained stable, EKG is unremarkable Lactic level remains elevated, indicating ongoing sepsis and poor tissue perfusion Patient will remain in ICU on pressor support, close monitoring for cardiovascular status Continue titration of vasopressors Pulmonary The patient is saturating 96% on room air with respiratory rate of 18-20, no signs of respiratory distress at this moment ABG wnl Chest x-ray showed no active pulmonary pathology Continue Bipap/CPAP Oxygenation is stable, but continue to monitore RS given the critical status and potential for worsening sepsis GI Abdomen is soft, nondistended and nontender No signs of GI problem at this time Renal #YOU versus ATN #Elevated CPK, although not that much to consider rhabdomyolysis, patient fell/had an injury 3 days ago and it is unclear whether the CPK is trending upward or down at this time. Given this, the differential includes ATN due to rhabdomyolysis versus YOU in the setting of hypovolemia. However, the patient's BUN/creatinine ratio of 7 is more suggestive of an intrinsic renal cause, such as ATN, which could be also due to sever hypoperfusion. #Lactic acidosis #Electrolyte disbalance Creatinine is elevated at 2, eGFR of 33, consistent with acute kidney injury likely Urine output low We will measure bladder pressure to rule out abdominal compartment syndrome given that the patient received almost 5 L of fluids and did not have any urine output Continue monitoring renal panel and electrolytes Trend lactic acidosis, continue monitor urine output, ID #Sepsis secondary to GPC bacteremia in the setting most likely cellulitis of the left lower extremity/pressure ulcers #GPC bacteremia/Blood culture preliminarily revealed GPC in both bottles Continue IV antibiotics Repeat blood culture ID/cardio consult warranted patient is already on Vanc follow up with echo and/or ANNAMARIE , follow cardio recs MSK #pressure ulcer #cellulitis of LF Wound care Consider surgical consultation for debridement and dressing Follow-up with repeat cultures Continue monitoring fever and infection markers Continue broad-spectrum antibiotics, adjust based on the culture result Endo #IDDM2 constinue ISS monitore Heme stable Disposition:ICU DVT prophylaxis: Heparin GI prophylaxis: none Diet: carb consstent Lines: PIV CODE STATUS:Full code Patient care was discussed with attending physician Dr. Woodrow Bermudez MD PGY-3 I have carefully reviewed this document. Due to imperfections in the voice software, there could be grammatical errors including phonetic/typographic errors. This in no way compromises the medical care the patient is receiving Attending Provider Attestation/Addendum Patient seen and examined at bedside with resident. Agree with assessment and plan ad documented above. Otis Troy MD
[2024-12-23] MEDS: Norepinephrine/NS 16mg/250ml 16 MG/250 ML BAG 6.379 MG IV (05:50)
[2024-12-23] MEDS: Norepinephrine/NS 16mg/250ml 16 MG/250 ML BAG 28.001 MG IV (07:19)
[2024-12-23 07:28] LABS: Lactate (Lactic Acid) 5.3 mMol/L (0.4-2.0)
[2024-12-23] MEDS: HEPARIN SOD INJ 5000 UNIT/ML VIAL SC (08:03)
[2024-12-23] MEDS: ALBUTEROL/IPRATROPIUM (Duoneb) RT SOL 3 ML NEBU INH (08:19)
--- NOTE | 2024-12-23 08:23 | XR_ITS ---
Examination: CT left lower leg, without contrast. 2-D sagittal reconstructions. 2-D coronal reconstructions. 3-D reconstructions. Date and time of exam:December 23, 2024 1040 hours INDICATIONS: Left lower leg redness swelling and pain this week with drainage CTDI: vol (mGy):26.9 DLP: (mGycm):2839 Technique: Multiple 1.25 mm axial sections of the left lower extremity have been obtained. 2-D sagittal and coronal reconstructions have been obtained. 3-D reconstructions have been obtained. Low dose protocols were performed. One or more of the following dose reduction techniques were used; automated exposure control, adjustment of the mA and/or KV according to patient size, use of iterative reconstruction technique. Findings: Edema in the subcutaneous fatty tissue anterior lateral to the left hip Common femoral lymph nodes, multiple, the largest 30 mm Edema in the subcutaneous tissue around the thigh severe in the medial thigh with skin thickening No fluid-filled drainable abscess The severe edema and cellulitis continues in the lower leg with marked skin thickening Negative for osteomyelitis IMPRESSION: Severe edema cellulitis pattern as above No fluid containing soft tissue abscess Negative for osteomyelitis Consider ultrasound arterial Doppler lower extremities follow-up
[2024-12-23] MEDS: PHENTOLAMINE MESYLATE SC (08:51)
--- NOTE | 2024-12-23 09:00 | PD.RESPROC ---
PROCEDURES: Procedure Date / Time 12/23/24 1121 Procedure Narrative Procedure Narrative: PROCEDURE: Right IJ vascular catheter INDICATION: Norepinephrine Infusion PROCEDURE AUTO COLLISION REPAIR INSTRUCTOR : Dr Verduzco ATTENDING PHYSICIAN : Dr Donovan CONSENT : Informed consent was obtained from patient, with discussion regarding the procedure, or treatment. I explained the following to the patient: a. Nature of the procedure or treatment and who will perform the procedure or treatment b. Necessity for procedure and the possible benefits. c. Risks and complications (most common and serious) d. Alternative treatments and the risks, benefits and side effects of each (including no treatment). e. Likelihood of the patient achieving his/her goals without this procedure and surgery treatment f. Problems that might occur during the recuperation g. Conflicts of interest, if any PROCEDURE SUMMARY: The Central Line Venous Catheter Insertion Practices form was completed. Starting with the first handwash prior to starting sterile technique. A time out was performed . My hands were washed immediately prior to the procedure. I wore a surgical cap, mask with protective eyewear, full gown and sterile gloves throughout the procedure. The patient was placed in Trendelenburg position. RIGHT chest region was prepped using chlorhexidine scrub and draped in sterile fashion using a full drape and sterile probe cover and sterile gel employed. The medial and lateral heads of the sternocliedomastoid muscle were identified as was the carotid pulse. The Right Internal Jugular vein was identified using the ultrasound. Anesthesia was achieved over the vein using 1% lidocaine. Using real-time out of plane guidance, the introducer needle was inserted into the Right Internal Jugular Vein by ultrasound. A small incision was made at the skin surface with a scalpel and the introducer needle was exchanged for a dilator over the guidewire. After appropriate dilation was obtained, the dilator was exchanged over the wire for a central venous catheter. The wire was removed and the catheter was sutured in place at 0.2 - 0.3 cm. A sterile sobraview shield was placed over the catheter at the insertion site. The patient tolerated the procedure without any hemodynamic compromise. At time of procedure completion, all ports aspirated and flushed properly. Estimated blood loss is ~ 5 ml. Post-procedure chest x-ray confirmed appropriate placement. Under the supervision of my attending Dr Donovan -Michael Verduzco MD [PGY2] Attending note I was present for and available throughout the procedure
--- NOTE | 2024-12-23 09:12 | XR_ITS ---
Examination: AP chest single view Technique one AP portable upright chest single view Date and time: December 23, 2024, 0936 hours, comparison 12/23/2024 0027 hours. INDICATIONS: Post central line placement FINDINGS: Right internal jugular central line tip right atrium No pneumothorax Atelectasis versus versus mild pneumonia left base IMPRESSION: Right internal jugular central line tip satisfactory position, no pneumothorax
--- NOTE | 2024-12-23 09:46 | ESPR_ITS ---
Documentation for date of: 12/23/24 Subjective Subjective Interval history: 54-year-old female with past medical history of prior ND?, Insulin-dependent type 2 diabetes, lymphedema, lipedema, asthma, epilepsy, morbid obesity, nonambulatory for 9 years, wheelchair-bound presenting to the ED on 12/22 with left lower extremity pain and oozing. Patient states that about 3 weeks ago she slammed her left leg on a brick wall and ever since that time her left leg has progressively worsened and started oozing. Patient lives at home and is largely immobile and requires grounds caretaker in the form of her grandson who takes care of her. Patient has not been seen by outpatient wound care as she says her motorized wheelchair has been broken. Patient also states that she has had a heart attack in the past but has never followed up with cardiology. Patient also has asthma but she denies having any shortness of breath at this time, uses albuterol twice a week. Medical history: As stated above Surgical history: Denies Allergies: Aspirin, codeine, Keppra, morphine, penicillin causes dyspnea Medications: Pending med rec Family history: Patient's mother and grandmother from breast cancer, denies having any family history of heart attack or stroke Social history: Patient lives at home, grandson grounds caretaker, denies any alcohol, tobacco or illicit drug use ROS: All 12 systems assessed and the patient denies unless otherwise stated in HPI In the ED, patient presented mildly hypotensive 92/56, heart rate of 92, respiratory rate of 18, afebrile satting 96 on room air. Pertinent lab findings include WBC of 5.8, potassium 3.1, creatinine 1.8, eGFR of 33, lactic acid initially 7.1 uptrending to 8.0, T. bili of 2.2, AST 21, ALT 14, BNP of 385, Pro-Umberto of 87. Urinalysis shows signs of urinary tract infection. Venous Doppler study is negative for DVT, chest x-ray does not show any active disease and tibia/fibula x-ray shows no acute fracture. Patient was admitted to floors for sepsis secondary to cellulitis . At midnight SPINE SUPERVISOR was called due to hypotension, despite aggressive fluid resuscitation patient was remained persistent hypotensive, however nursing staff was having a hard time to obtain accurate measurement due to body habitus. Repeat labs did revealed lactic acidosis which did not improved even after 5 L of fluids, Cheetah monitor was placed, patient found to be not fluid responsive. At this point decision was made to upgrade patient to ICU for pressor support. 12/23/2024: Overnight patient had no further events. Input 5 L, output 0. This a.m. IV access infusing norepinephrine extravasated and was removed. Patient complains of mild SOB at rest and also 9/10 constant left leg pain. Labs showed Hb 12.2, PLT 149, BUN 14, CR 2, glucose 84. Lactic acid down trended to 5.6 from 6, Mg 1.5, CK 515, T. bili 2. PTT 33.7, PT 16.7, INR 1.6, fibrinogen 560, D-dimer 3780. Blood cultures growing GPC preliminary. CT of the lower leg showed extensive lymphedema with cellulitis. No signs of osteomyelitis or necrotizing fasciitis. Repleted with magnesium sulfate 4 g IV x 1. Started on clindamycin, renally dosed for toxic shock syndrome. Phentolamine SC was administered for extravasation of norepinephrine. RIJ CVC was placed for norepinephrine administration. DuoNebs were placed as needed. Patient was also started on IV Ig and prothrombin complex concentrate for toxic shock syndrome and likely DIC. Exam Vital Signs Temp Pulse Resp BP Pulse Ox O2 Del Method O2 Flow Rate 96.8 F 107 H 38 H 91/62 98 Room Air 3 12/23/24 05:00 12/23/24 09:15 12/23/24 09:15 12/23/24 09:15 12/23/24 09:15 12/22/24 23:12 12/23/24 08:21 FiO2 30 12/22/24 17:37 Narrative Exam Constitutional Alert, oriented x 3 and in mild distress. Elderly, obese female. HEENT Vision grossly intact. Patent nares. Trachea midline Respiratory Chest normal on inspection and decreased air entry at bases, no wheezing or crackles heard. Red, erythematous lesions noted under both breasts. Cardiovascular S1 and S2 audible, RRR. No murmurs carotid bruit. No gross JVD. Abdominal Soft, obese and non tender to palpation in all quadrants. BS + Genitourinary No bladder tenderness, no flank pain. Normal to palpation Musculoskeletal Extremities tone within normal limits. Extensive bilateral lower extremity lymphedema Neurological CN II - XII grossly intact. Extremity motor and sensation grossly intact. Skin Approximately 5 x 8 cm grade 2 ulcer on lateral left ankle. 4 x 2 stage II ulcer on posterior calf. Large violaceous discoloration on the left medial extending to posterior thigh with lichenification and skin thickening. 2nd and 3rd digits appear dark on the left foot. On right proximal forearm, 5 x 5 area of swelling from Levophed extravasation, no signs of skin necrosis. Psychiatric Patient has good affect, is cooperative Objective Labs 12/23/24 09:46 12/23/24 09:46 Labs: Laboratory Results - last 24 hr 12/22/24 12/22/24 12/22/24 14:15 16:49 18:19 WBC 5.8 RBC 4.87 Hgb 12.4 Hct 39.2 MCV 81 MCH 25.5 MCHC 31.6 RDW Std Deviation 46.8 H Plt Count 175 Neut % (Auto) 93 H Lymph % (Auto) 3 L [place] % (Auto) 3 Eos % (Auto) 0 Baso % (Auto) 1 Neut # (Auto) 5.4 Lymph # (Auto) 0.2 L [place] # (Auto) 0.2 Eos # (Auto) 0.0 Baso # (Auto) 0.0 Immature Gran # (Auto) 0.02 H Absolute Nucleated RBC 0.00 Immature Gran % 0 Neutrophils % (Manual) 30 L Monocytes % (Manual) 12 H Metamyelocytes % 4 H Myelocytes % 5 H Nucleated RBC % 0 Band Neutrophils 45 H Lymphocytes (Manual) 4 L PT 12.8 H INR 1.2 Puncture Site ABG pH ABG pCO2 ABG pO2 ABG HCO3 ABG O2 Saturation ABG Base Excess VBG pH 7.35 VBG pCO2 37 VBG pO2 27 VBG O2 Sat (Tiffanie) 46 L VBG Base Excess -5 L FiO2 Sodium 139 Potassium 3.1 L Chloride 102 Carbon Dioxide 21.1 Anion Gap 16 BUN 14 Creatinine 1.8 H Estim Creat Clear Calc 46.5 L eGFR 33 L BUN/Creatinine Ratio 8 L Glucose [address] Glu mg/dL Hemoglobin A1c Calculated Osmolality 280 Lactic Acid 7.6 H* 8.0 H* Calcium 8.8 Corrected Calcium 9.0 Phosphorus Magnesium Total Bilirubin 2.2 H AST 21 ALT 14 Alkaline Phosphatase 68 Total Creatine Kinase B-Natriuretic Peptide 385 H Total Protein 6.2 Albumin 3.8 Globulin 2.4 Albumin/Globulin Ratio 1.6 Triglycerides Cholesterol LDL Cholesterol, Calc HDL Cholesterol Cholesterol/HDL Ratio Procalcitonin 87.05 H TSH Ur Collection Type Clean Catch Urine Color Drk-Yellow A Urine Clarity Turbid A Urine pH 5.5 Ur Specific [place] 1.024 Urine Protein 2+ A Urine Glucose (UA) Trace Urine Ketones Trace Urine Blood 1+ A Urine Nitrite Negative Urine Bilirubin 1+ A Urine Urobilinogen (Auto) 4.0 Ur Leukocyte Esterase Positive Urine RBC 21 H Urine WBC 90 H Ur Squamous Epith Cells 6 H Urine Bacteria 3+ A Hyaline Casts 7 H Blood Type B Positive Antibody Screen NEGATIVE Blood Bank Wristband ID Yes 12/22/24 12/22/24 12/22/24 20:20 23:27 23:40 WBC RBC Hgb Hct MCV MCH MCHC RDW Std Deviation Plt Count Neut % (Auto) Lymph % (Auto) [place] % (Auto) Eos % (Auto) Baso % (Auto) Neut # (Auto) Lymph # (Auto) [place] # (Auto) Eos # (Auto) Baso # (Auto) Immature Gran # (Auto) Absolute Nucleated RBC Immature Gran % Neutrophils % (Manual) Monocytes % (Manual) Metamyelocytes % Myelocytes % Nucleated RBC % Band Neutrophils Lymphocytes (Manual) PT INR Puncture Site Left Radial ABG pH 7.39 ABG pCO2 33 ABG pO2 60 L ABG HCO3 20 ABG O2 Saturation 92 ABG Base Excess -5 L VBG pH VBG pCO2 VBG pO2 VBG O2 Sat (Tiffanie) VBG Base Excess FiO2 21 Sodium Potassium Chloride Carbon Dioxide Anion Gap BUN Creatinine Estim Creat Clear Calc eGFR BUN/Creatinine Ratio Glucose Estimated Ave Glu mg/dL Hemoglobin A1c Calculated Osmolality Lactic Acid 7.1 H* 6.2 H* Calcium Corrected Calcium Phosphorus Magnesium Total Bilirubin AST ALT Alkaline Phosphatase Total Creatine Kinase B-Natriuretic Peptide Total Protein Albumin Globulin Albumin/Globulin Ratio Triglycerides Cholesterol LDL Cholesterol, Calc HDL Cholesterol Cholesterol/HDL Ratio Procalcitonin TSH Ur Collection Type Urine Color Urine Clarity Urine pH Ur Specific [place] Urine Protein Urine Glucose (UA) Urine Ketones Urine Blood Urine Nitrite Urine Bilirubin Urine Urobilinogen (Auto) Ur Leukocyte Esterase Urine RBC Urine WBC Ur Squamous Epith Cells Urine Bacteria Hyaline Casts Blood Type Antibody Screen Blood Bank Wristband ID 12/23/24 12/23/24 12/23/24 00:15 02:50 07:10 WBC 4.8 RBC 4.76 Hgb 12.2 Hct 38.3 MCV 81 MCH 25.6 MCHC 31.9 RDW Std Deviation 47.5 H Plt Count 149 Neut % (Auto) 88 H Lymph % (Auto) 4 L [place] % (Auto) 4 Eos % (Auto) 0 Baso % (Auto) 0 Neut # (Auto) 4.2 Lymph # (Auto) 0.2 L [place] # (Auto) 0.2 Eos # (Auto) 0.0 Baso # (Auto) 0.0 Immature Gran # (Auto) 0.17 H Absolute Nucleated RBC 0.00 Immature Gran % 4 H Neutrophils % (Manual) Monocytes % (Manual) Metamyelocytes % Myelocytes % Nucleated RBC % 0 Band Neutrophils Lymphocytes (Manual) PT INR Puncture Site ABG pH ABG pCO2 ABG pO2 ABG HCO3 ABG O2 Saturation ABG Base Excess VBG pH VBG pCO2 VBG pO2 VBG O2 Sat (Tiffanie) VBG Base Excess FiO2 Sodium 138 139 Potassium 3.7 D 4.0 Chloride 102 103 Carbon Dioxide 21.6 21.4 Anion Gap 14 15 BUN 14 14 Creatinine 2.0 H 2.0 H Estim Creat Clear Calc 41.9 L 41.9 L eGFR 29 L 29 L BUN/Creatinine Ratio 7 L 7 L Glucose [address] Glu mg/dL 114 Hemoglobin A1c 5.6 Calculated Osmolality 276 277 Lactic Acid 6.0 H* 5.3 H* Calcium 8.4 8.3 Corrected Calcium 9.0 8.9 Phosphorus 2.9 3.6 Magnesium 1.2 L 1.5 L Total Bilirubin 1.9 H 2.0 H AST 30 35 H ALT 15 18 Alkaline Phosphatase 59 60 Total Creatine Kinase 515 H B-Natriuretic Peptide Total Protein 5.3 L 5.5 L Albumin 3.2 L D 3.3 L Globulin 2.1 L 2.2 L Albumin/Globulin Ratio 1.5 1.5 Triglycerides 143 Cholesterol 108 L LDL Cholesterol, Calc 54 HDL Cholesterol 25 L Cholesterol/HDL Ratio 4.3 Procalcitonin TSH 2.38 Ur Collection Type Urine Color Urine Clarity Urine pH Ur Specific [place] Urine Protein Urine Glucose (UA) Urine Ketones Urine Blood Urine Nitrite Urine Bilirubin Urine Urobilinogen (Auto) Ur Leukocyte Esterase Urine RBC Urine WBC Ur Squamous Epith Cells Urine Bacteria Hyaline Casts Blood Type Antibody Screen Blood Bank Wristband ID ABG Interpretation ABG results: 12/22/24 12/22/24 16:49 23:40 ABG pH 7.39 ABG pCO2 33 ABG pO2 60 L ABG HCO3 20 ABG O2 Saturation 92 ABG Base Excess -5 L VBG pH 7.35 VBG pCO2 37 VBG pO2 27 VBG Base Excess -5 L Quality Measures Quality Measures none Assessment & Plan Assessment Current Active Medications: Generic Name Dose Route Start Last Admin Trade Name Freq PRN Reason Stop Dose Admin Acetaminophen 650 mg 12/22/24 17:09 Acetaminophen 325 Mg Tablet PO 01/21/25 17:08 Q6H PRN Pain 1-3 and/or Fever >100.1 Hydrocodone Bitart/Acetaminophen 1 tab 12/22/24 17:09 12/23/24 00:57 Hydrocodone/Apap 10/325 Tab PO 12/27/24 17:08 1 tab Q4HR PRN Administration PAIN SCALE 7-10 (Severe Hydrocodone Bitart/Acetaminophen 1 tab 12/22/24 17:09 Hydrocodone/Apap 5/325 Tablet PO 12/27/24 17:08 Q4HR PRN PAIN SCALE 4-6 (Moderate Albuterol/Ipratropium 3 ml 12/23/24 09:36 Albuterol/Ipratropium (Duoneb) Rt Ginny 3 Ml Nebu INH 01/22/25 07:44 Q8HRRT PRN wheezing Clotrimazole 0 gm 12/23/24 09:00 Clotrimazole Cr 1% 30 Gm Tube TOP 01/22/25 08:59 BID TRACY Dextrose 25 ml 12/22/24 17:09 Dextrose 50%-Water Inj 50 Ml Syringe IV 01/21/25 17:08 Q15MIN PRN BG 50-70 responsive npo pt Dextrose 50 ml 12/22/24 17:09 Dextrose 50%-Water Inj 50 Ml Syringe IV 01/21/25 17:08 Q15MIN PRN BG <50 OR BG <70 & pt unresponsive Glucagon 1 mg 12/22/24 17:09 Glucagon Inj 1 Mg Vial IM Q15MIN PRN BG <70, and no IV access Heparin Sodium (Porcine) 5,000 unit 12/22/24 21:00 12/23/24 08:03 Heparin Sod Inj 5000 Unit/Ml Vial SC 01/05/25 20:59 5,000 unit Q12HR TRACY Administration Cefepime HCl 2 gm/ Sodium 50 mls @ 100 mls/hr 12/22/24 17:13 12/22/24 23:08 Chloride IV 12/29/24 17:12 100 mls/hr Q12HR TRACY Administration Protocol Sodium Chloride 1,000 mls @ 150 mls/hr 12/23/24 01:00 12/23/24 01:26 Ns IV 01/22/25 00:59 150 mls/hr On Hold: 12/23/24 06:11 .Q6H40M TRACY Administration Vancomycin/Sodium Chloride 750 mg in 150 mls @ 120 mls/hr 12/23/24 10:00 Vancomycin/Ns 750 Mg Ivpb IV 12/30/24 09:59 BID@1000,2200 TRACY Protocol Norepinephrine Bitartrate 16 mg in 250 mls @ 7.369 mls/hr 12/23/24 07:12 12/23/24 09:15 Levophed In Ns 16mg/250ml IV 01/22/25 07:11 0.09 mcg/kg/min .Q24H PRN 13.264 mls/hr PER protocol Titration Protocol 0.05 MCG/KG/MIN Clindamycin/Sodium Chloride 600 mg in 50 mls @ 100 mls/hr 12/23/24 09:35 Cleocin/Ns Ivpb IV 12/30/24 09:34 Q8HR TRACY Insulin Human Lispro 0 unit 12/22/24 21:00 12/23/24 07:56 Insulin Lispro (Admelog) 1 Unit/0.01 Ml Unit SC 01/21/25 20:59 Not Given ACHS [facility] Protocol Ondansetron HCl 4 mg 12/22/24 17:09 Ondansetron Inj 2 Mg/Ml Inj 2 Ml IVP 01/21/25 17:08 Q6H PRN NAUSEA OR VOMITING Protocol Pharmacy Consult 1 each 12/23/24 09:00 Vancomycin Pharmacy To Dose 1 Each Each IV 01/22/25 08:59 QDAY PRN CONSULT Sennosides 1 tab 12/22/24 17:09 Senna Tablet PO 01/21/25 17:08 QDAY PRN constipation Protocol Plan 54-year-old female with past medical history of insulin-dependent DM type II, lymphedema, asthma, morbidly obese, history of epilepsy, nonambulatory for 9 years, wheelchair-bound was initially admitted to the medical floor for sepsis secondary to cellulitis of the left lower extremity. Over the course of the night, her clinical condition deteriorated, with concerns for distributive shock in the setting of sepsis, Despite initial fluid resuscitation, she remained persistently hypotensive, requiring transfer to the ICU for pressor support and close monitoring . NEURO History of seizures Patient states that she takes carbamazepine as home medication but is unsure of the dose. Rx: ? Medication reconciliation ? Seizure precautions ? To start home medication once confirmed CVS Shock, likely distributive Patient's presented with hypotension requiring norepinephrine infusion. Bedside echo, although limited did not show any signs of RV strain, cardiac tamponade or severely reduced ejection fraction. Also patient received adequate fluid resuscitation with approximately 5L IVF over the past 24 hours. Therefore her likely etiology of her shock is distributive due to sepsis secondary to left leg cellulitis DDx: -Toxic shock syndrome Dx: - Pending formal echo ? Lactic acid 6?>5.6 Rx: - Titrate norepinephrine as necessary - Pending formal echo PULM COPD not on home O2 Rx: - Supplemental O2 as necessary ? DuoNebs as needed GI/Hep Elevated T. bili Elevated AST Hypoalbuminemia DDx: - Toxic shock syndrome, septic shock Dx: - T. bili 2 - AST 40 ? Albumin 3.1 Rx: - Treat underlying cause RRx: - Monitor CMP RENAL YOU with oliguria secondary to shock DDx: - Hypoperfusion secondary to volume depletion and also shock. Dx: - Baseline CR 0.7. Admission CR 2.1 Rx: - Renally dose medication ? Avoid nephrotoxic agents RRX: ? If patient continues to be anuric, will consider nephrology consult Lactic acidosis NAGMA DDx: -Septic shock, toxic shock syndrome, diarrhea, RTA type IV Dx: -Lactic acid 6?>5.6 ? Bicarb 14.7 ? pH 7.29 Rx: -Treat underlying cause RRX: - Trend lactate and repeat renal panel at 5 PM Elevated CK DDx: -Immobilization, toxic shock syndrome Dx: - CK 505?> 450 HEME/ONC Possible DIC Patient does not appear to have any obvious acute purpura or ecchymosis on physical exam. Also does not appear to have excessive bleeding from IV sites or gums. She also had a lower extremity Doppler ultrasound which was negative for DVT. At this time no obvious signs of thrombosis or bleeding. Her coagulation panel labs were slightly elevated. DDx: - Coagulopathy secondary to sepsis, purpura fulminans Dx: - PTT 33.7 ? PT 16.7 ? INR 1.6 ? Fibrinogen 560 ? D-dimer 3780 Rx: - Prothrombin complex concentrate ordered RRX: - Repeat coagulation panel tomorrow morning Elevated D-dimer Likely in setting of sepsis D-dimer 3780 Normocytic Anemia DDx: -Secondary to sepsis, chronic disease, MALINA, chronic blood loss Dx: -Hb 11.8 Rx: -Monitor CBC Thrombocytopenia DDx: ? Sepsis Dx: ? Plt 90 Rx: ? Monitor CBC. ENDO Insulin-dependent diabetes mellitus type 2 [5.6%] Rx: - Low consistent carb diet - Insulin sliding scale ID Septic Shock secondary to UTI and left lower leg cellulitis Possible toxic shock syndrome GPC bacteremia Patient has shock and etiology likely distributive as other etiologies have been ruled out by bedside echo and fluid assessment. Patient has also other signs of multiorgan involvement such as history of diarrhea prior to admission, muscle pains, severe YOU, lactic acidosis and elevated CK. All of these findings also suggestive of toxic shock syndrome Dx: ? On exam bilateral lymphedema with left leg more swollen than right. Violaceous area of discoloration on medial left thigh extending to posterior thigh and ulceration on left lateral left malleolus and posterior calf. ? Blood cultures grew GPC preliminary - CT lower limb was negative for osteomyelitis and necrotizing fasciitis. Rx: - Continue cefepime 2 g IV twice daily started on [12/22? - Continue vancomycin renally dosed started on [12/22? - Started on clindamycin 600 mg IV every 8 hourly, renally dosed started on [12/23? RRX: - Follow-up on blood cultures and tailor antibiotics MSK/DERM Chronic lower extremity lymphedema Rx: ? Elevate legs Soft tissue extravasation of Levophed Dx: ? IV access with Levophed infusion extravasated. No signs of tissue necrosis Rx: ? Phentolamine 5 mg SC x 1 RRx: ? Monitor for signs of tissue necrosis, additional dose of phentolamine if needed ICU Health maintenance: Dispo: Norepinephrine infusion, IV IgG, prothrombin complex concentrate. IV antibiotics Diet: Low consistent carb DVT ppx: Heparin SC GI ppx: None IV lines: 2 pIV Central line: RIJ [12/23? Arterial line: No [place]: Yes [started on 9/24? Code status: FULL CODE Plan of care discussed with Attending Dr. Zion Verduzco MD PGY 2 Disclaimer: This note was dictated by speech recognition. Minor errors in forester silviculture may be present due to voice recognition software.
[2024-12-23] MEDS: CEFEPIME INJ 2 GM in SODIUM CHLORIDE 0.9% (Popper) 50 ML IV ×2 (10:00→20:57)
[2024-12-23] MEDS: CLINDAMYCIN/NS 600 MG IVPB 600 MG/50 ML BAG 100 MG IV ×3 (10:01→21:43)
--- NOTE | 2024-12-23 10:01 | PC.SS ---
Addendum entered by EDILSON Khan 12/23/24 12:48: Patient requested [facility] Directive forms and information. MUNITIONS HANDLER provided patient with [facility] Directive forms, MUNITIONS HANDLER informed patient that she will need two witnesses to sign page 11 or a supervisor publications on page 12. Patient stated that she will be discussing it with her caregiver Kyler. Addendum entered by EDILSON Khan 12/23/24 10:09: SS update: central line, CT of leg today. Original Note: Patient is a 54 year old female presenting to the hospital for cellulitis. MUNITIONS HANDLER met with patient at bedside, role and reason for visit was explained. Patient confirmed demographic information and provided alternative contact number [phone]. Patient stated that in case she is unable to make medical decisions on her own she would like her [facility] provider Kyler Pimentel to make them, contact information is [phone]. MUNITIONS HANDLER inquired if patient has any other contact of family she would like to add, patient stated she has a friend named Bo who she might want to add but wants to talk to him first. Patient did not disclose any alternative contact. Patient stated that Hafsa who is on the facesheet is her old [facility] provider and would like to remove her as a person to notify. ?Patient stated she uses a motorized wheel chair and stated she does not use any other medical equipment. Patient stated she has type 2 diabetes. Patient stated that her PCP is Dr. Singer and last visit with doctor was in October 2024. Patient?s pharmacy of choice is [facility]. Patient stated that once medically clear she would like to return home, she will need transportation. SS will follow up with additional d/c needs. MUNITIONS HANDLER contacted registration and removed Hafsa as person to notify and added Kyler Pimentel. Decision maker: Kyler Pimentel [phone] PCP: Dr. Singer D/c: home
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
[2024-12-23 10:13] LABS: Basophils # (Auto) 0.1 Thou/mm3 (0.0-0.2); Basophils % (Auto) 1 % (0-2.5); Eosinophils # (Auto) 0.0 Thou/mm3 (0.0-0.5); Eosinophils % (Auto) 0 % (0-10); Hematocrit 37.4 % (36.0-46.0); Hemoglobin 11.8 g/dL (12.0-16.0); Immature Granulocytes Auto 0.66 Thou/mm3 (0.00-0.00); Lymphocytes # (Auto) 0.3 Thou/mm3 (1.0-4.8); Lymphocytes % (Auto) 4 % (10-50); Mean Corpuscular HGB Conc 31.6 g/dl (31.0-37.0); Mean Corpuscular Hemoglobin 25.5 pg (25.0-35.0); Mean Corpuscular Volume 81 fL (80-100); Monocytes # (Auto) 0.2 Thou/mm3 (0.0-0.8); Monocytes % (Auto) 3 % (0-12); Neutrophils # (Auto) 6.8 Thou/mm3 (1.8-7.7); Neutrophils % (Auto) 85 % (37-80); Nucleated Red Blood Cell # 0.00 Thou/mm3 (0.00-0.00); Nucleated Red Blood Cell % 0 /100 WBC (0); Platelet Count 90 Thou/mm3 (140-440); RDW Standard Deviation 48.5 fL (36.4-46.3); Red Blood Count 4.63 Miln/mm3 (4.00-5.20); White Blood Count 8.1 Thou/mm3 (3.6-11.0)
[2024-12-23] MEDS: ACETAMINOPHEN 325 MG TABLET 650 MG PO (10:19)
[2024-12-23 10:21] LABS: Reflex Lactate? Y
[2024-12-23 10:24] LABS: Lactate (Lactic Acid) 5.6 mMol/L (0.4-2.0)
[2024-12-23 10:32] LABS: D-Dimer 3780 ng/mL (<600)
[2024-12-23 10:37] LABS: Fibrinogen 560 mg/dL (175-375); INR 1.6 (0.9-1.3); Partial Thromboplastin Time 33.7 Seconds (22.0-36.0); Prothrombin Time 16.7 Seconds (9.0-12.2)
[2024-12-23 11:27] LABS: Alanine Aminotransferase 19 U/L (10-49); Albumin, Serum 3.1 gm/dL (3.5-5.0); Albumin/Globulin Ratio 1.6 (1.2-2.2); Alkaline Phosphatase 61 U/L (46-116); Anion Gap 19 (7-16); Aspartate Amino Transferase 40 U/L (0-34); BUN/Creatinine Ratio 5 Ratio (12-20); Bilirubin,Total 2.1 mg/dL (0.3-1.2); Blood Urea Nitrogen 11 mg/dL (9-23); Calcium 8.3 mg/dL (8.3-10.6); Calcium (Corrected) 9.0 mg/dL (8.5-10.1); Chloride 103 mMol/L (98-107); Creatinine (Component) 2.1 mg/dL (0.6-1.3); Estimated Creatinine Clearance 43.2 mL/min (>60); Globulin 2.0 gm/dL (2.3-3.5); Glucose 70 mg/dL (74-106); Osmolality,Calculated 271 (275-295); Potassium 4.2 mMol/L (3.4-5.1); Sodium 137 mMol/L (136-145); Total Protein 5.1 gm/dL (5.7-8.2); eGFR 27 See Note
[2024-12-23 11:32] LABS: Carbon Dioxide 14.7 mMol/L (20.0-31.0)
[2024-12-23] MEDS: VANCOMYCIN/NS 750 MG IVPB 750 MG/150 ML BAG 120 MG IV ×2 (12:04→21:43)
[2024-12-23] MEDS: CLOTRIMAZOLE CR 1% 30 GM TUBE TOP ×2 (12:04→21:36)
[2024-12-23 12:27] LABS: Creatine Kinase 450 U/L (34-171)
[2024-12-23 13:05] LABS: Reflex Lactate? Y
[2024-12-23 13:14] LABS: Base Excess -8 (-3-3); HCO3 18 mEq/L (20-26); Inspired O2, VO2 Liters 3 L/min; O2 Saturation 94 % (91-98); PCO2 37 mmHg (32.0-48.0); PO2 73 mmHg (83-108); pH, Arterial 7.29 (7.35-7.45)
[2024-12-23 13:17] LABS: Allen Test Performed/OK; Puncture Site Right Brachial
[2024-12-23] MEDS: PROTHROMBIN COMPLEX CONCENT IV (14:45)
[2024-12-23] MEDS: [UNRECOGNIZED DRUG - OTHER] IV (14:45)
[2024-12-23] MEDS: STERILE WATER IV (14:45)
[2024-12-23] MEDS: HEPARIN SOD INJ 5000 UNIT/ML VIAL 7500 UNIT SC ×2 (15:16→21:44)
[2024-12-23 15:19] LABS: Lactate (Lactic Acid) 5.1 mMol/L (0.4-2.0)
[2024-12-23] MEDS: PRE MIXED IV (15:22)
[2024-12-23] MEDS: IMMUNE GLOB GA CA IV (15:22)
[2024-12-23 15:44] LABS: Chloride,Urine Random 29.0 mMol/L (55.0-125.0); Creatinine,Random Urine 203 mg/dL (30-125); Potassium,Urine Random 68 mMol/L (12-62); Sodium,Urine Random 21.1 mMol/L (20.0-110.0)
[2024-12-23] MEDS: DEXTROSE 50%-WATER INJ 50 ML SYRINGE IV ×2 (17:29→19:40)
[2024-12-23 18:13] LABS: Lactate (Lactic Acid) 5.9 mMol/L (0.4-2.0)
[2024-12-23 18:15] LABS: Reflex Lactate? Y
[2024-12-23 18:22] LABS: Albumin, Serum 2.8 gm/dL (3.5-5.0); Anion Gap 16 (7-16); BUN/Creatinine Ratio 8 Ratio (12-20); Blood Urea Nitrogen 17 mg/dL (9-23); Calcium 7.9 mg/dL (8.3-10.6); Calcium (Corrected) 8.9 mg/dL (8.5-10.1); Carbon Dioxide 17.6 mMol/L (20.0-31.0); Chloride 102 mMol/L (98-107); Creatine Kinase 251 U/L (34-171); Creatinine (Component) 2.1 mg/dL (0.6-1.3); Estimated Creatinine Clearance 43.2 mL/min (>60); Glucose 128 mg/dL (74-106); Osmolality,Calculated 275 (275-295); Phosphorous 3.5 mg/dL (2.4-5.1); Potassium 4.0 mMol/L (3.4-5.1); Sodium 136 mMol/L (136-145); eGFR 27 See Note
[2024-12-23 18:29] LABS: INR 1.1 (0.9-1.3); Partial Thromboplastin Time 30.5 Seconds (22.0-36.0); Prothrombin Time 12.1 Seconds (9.0-12.2)
--- NOTE | 2024-12-23 19:31 | EKG_ITS ---
[facility] Test Date: 2024-12-23 Pat Name: ROSELINE MCGUIRE Department: Room: S257A Gender: Female Drying Supervisor: ELFEGO : 1970 Requested By: Ivania Bermudez Order Number: [id number] Reading MD: Ivania Bermudez Measurements Intervals [place] Rate: 136 P: OR: QRS: -4 QRSD: 154 T: -11 QT: 276 QTc: 416 Interpretive Statements ATRIAL FIBRILLATION WITH RAPID VENTRICULAR RESPONSE WITH ABERRANT CONDUCTION OR VENTRICULAR PREMATURE COMPLEXES INDETERMINATE AXIS RIGHT BUNDLE BRANCH BLOCK POSSIBLE ANTERIOR MYOCARDIAL INFARCTION , PROBABLY OLD Compared to ECG 09/22/2020 13:25:23 Ventricular premature complex(es) now present Aberrant conduction of supraventricular beat(s) now present Indeterminate axis now present Right bundle-branch block now present Sinus rhythm no longer present Myocardial infarct finding still present /store/S0/[id number].pdf
[2024-12-23] MEDS: DEXTROSE 10%-WATER 1000 ML 1,000 ML 45 ML IV (19:41)
[2024-12-23 19:57] LABS: Magnesium 1.5 mg/dL (1.6-2.6)
--- NOTE | 2024-12-23 20:08 | EKG_ITS ---
[facility] Test Date: 2024-12-23 Pat Name: ROSELINE MCGUIRE Department: Room: S257A Gender: Female Transmission System Operator: ELFEGO : 1970 Requested By: Felix Goff Order Number: [id number] Reading MD: Felix Goff Measurements Intervals [place] Rate: 185 P: [place]: QRS: -81 QRSD: 153 T: -29 QT: 302 QTc: 531 Interpretive Statements ATRIAL FIBRILLATION WITH RAPID VENTRICULAR RESPONSE INDETERMINATE AXIS RIGHT BUNDLE BRANCH BLOCK LEFT ANTERIOR FASCICULAR BLOCK POSSIBLE ANTERIOR MYOCARDIAL INFARCTION , PROBABLY OLD Compared to ECG 12/23/2024 19:35:29 Left anterior fascicular block now present Ventricular premature complex(es) no longer present Aberrant conduction of supraventricular beat(s) no longer present Myocardial infarct finding still present /store/S0/[id number].pdf
[2024-12-23] MEDS: AMIODARONE 150 MG IVPB 150 MG/100 ML BAG 600 MG IV (20:48)
[2024-12-23 20:53] LABS: Lactate (Lactic Acid) 6.3 mMol/L (0.4-2.0)
[2024-12-23] MEDS: fentaNYL CIT INJ 50 mCg/ML AMP 2ML 25 MCG IVP (20:56)
[2024-12-23 20:59] LABS: Reflex Lactate? Y
[2024-12-23] MEDS: AMIODARONE 360 MG IVPB 360 MG/200 ML BAG 33.333 MG IV (20:59)
[2024-12-23] MEDS: Norepinephrine/NS 16mg/250ml 16 MG/250 ML BAG 19.159 MG IV (22:00)
[2024-12-23 23:49] LABS: Reflex Lactate? Y
[2024-12-23 23:57] LABS: Lactate (Lactic Acid) 5.7 mMol/L (0.4-2.0)
[2024-12-24] VITALS (115 sets, daily range): BP systolic 69–160; BP diastolic 44–106; PULSE 0–181; RESP 0–39; TEMP 35.6–37.2; O2SAT 76–100; BMI 63.8
[2024-12-24] MEDS: AMIODARONE 360 MG IVPB 360 MG/200 ML BAG 33.33 MG IV ×2 (02:44→08:40)
[2024-12-24 02:53] LABS: Reflex Lactate? Y
[2024-12-24 03:15] LABS: Lactate (Lactic Acid) 5.1 mMol/L (0.4-2.0)
[2024-12-24 03:17] LABS: Basophils # (Auto) 0.0 Thou/mm3 (0.0-0.2); Basophils % (Auto) 0 % (0-2.5); Eosinophils # (Auto) 0.1 Thou/mm3 (0.0-0.5); Eosinophils % (Auto) 1 % (0-10); Hematocrit 37.8 % (36.0-46.0); Hemoglobin 11.6 g/dL (12.0-16.0); Immature Granulocytes Auto 0.92 Thou/mm3 (0.00-0.00); Lymphocytes # (Auto) 0.6 Thou/mm3 (1.0-4.8); Lymphocytes % (Auto) 5 % (10-50); Mean Corpuscular HGB Conc 30.7 g/dl (31.0-37.0); Mean Corpuscular Hemoglobin 24.9 pg (25.0-35.0); Mean Corpuscular Volume 81 fL (80-100); Monocytes # (Auto) 0.2 Thou/mm3 (0.0-0.8); Monocytes % (Auto) 2 % (0-12); Neutrophils # (Auto) 8.9 Thou/mm3 (1.8-7.7); Neutrophils % (Auto) 84 % (37-80); Nucleated Red Blood Cell # 0.02 Thou/mm3 (0.00-0.00); Nucleated Red Blood Cell % 0 /100 WBC (0); Platelet Count 104 Thou/mm3 (140-440); RDW Standard Deviation 50.7 fL (36.4-46.3); Red Blood Count 4.65 Miln/mm3 (4.00-5.20); White Blood Count 10.6 Thou/mm3 (3.6-11.0)
[2024-12-24 03:44] LABS: INR 1.1 (0.9-1.3); Partial Thromboplastin Time 45.8 Seconds (22.0-36.0); Prothrombin Time 12.3 Seconds (9.0-12.2)
[2024-12-24 03:52] LABS: Alanine Aminotransferase 18 U/L (10-49); Albumin, Serum 2.7 gm/dL (3.5-5.0); Albumin/Globulin Ratio 0.7 (1.2-2.2); Alkaline Phosphatase 68 U/L (46-116); Anion Gap 13 (7-16); Aspartate Amino Transferase 27 U/L (0-34); BUN/Creatinine Ratio 10 Ratio (12-20); Bilirubin,Total 1.4 mg/dL (0.3-1.2); Blood Urea Nitrogen 21 mg/dL (9-23); Calcium 8.3 mg/dL (8.3-10.6); Calcium (Corrected) 9.3 mg/dL (8.5-10.1); Carbon Dioxide 19.2 mMol/L (20.0-31.0); Chloride 102 mMol/L (98-107); Creatinine (Component) 2.2 mg/dL (0.6-1.3); Estimated Creatinine Clearance 41.3 mL/min (>60); Globulin 4.0 gm/dL (2.3-3.5); Glucose 133 mg/dL (74-106); Magnesium 3.3 mg/dL (1.6-2.6); Osmolality,Calculated 273 (275-295); Phosphorous 3.6 mg/dL (2.4-5.1); Potassium 4.0 mMol/L (3.4-5.1); Sodium 134 mMol/L (136-145); Total Protein 6.7 gm/dL (5.7-8.2); eGFR 26 See Note
[2024-12-24] MEDS: HEPARIN SOD INJ 5000 UNIT/ML VIAL 7500 UNIT SC ×2 (05:12→13:25)
[2024-12-24] MEDS: CLINDAMYCIN/NS 600 MG IVPB 600 MG/50 ML BAG 100 MG IV ×3 (05:12→22:05)
[2024-12-24 06:13] LABS: Reflex Lactate? Y
[2024-12-24 06:34] LABS: Lactate (Lactic Acid) 5.4 mMol/L (0.4-2.0)
--- NOTE | 2024-12-24 08:11 | PC.SS ---
AUTOMOTIVE PARTS CLERK met with patient at bedside to confirm surrogate medical decision maker. Patient confirmed surrogate medical decision maker is friend, Kyler Pimentel. AUTOMOTIVE PARTS CLERK updated ICU resident.
[2024-12-24 08:36] LABS: Fibrinogen 506 mg/dL (175-375)
[2024-12-24] MEDS: CEFEPIME INJ 2 GM in SODIUM CHLORIDE 0.9% (Popper) 50 ML IV (08:39)
[2024-12-24] MEDS: CLOTRIMAZOLE CR 1% 30 GM TUBE TOP ×2 (08:40→21:46)
--- NOTE | 2024-12-24 08:43 | PC.SS ---
BUSINESS EDUCATION TEACHER met with patient at bedside to discuss designation of surrogate medical decision maker.? Current surrogate medical decision maker is Yves Cotto, patient's [facility] staff member.? Yves Cotto informed BUSINESS EDUCATION TEACHER that he has only known the patient for 3-4 months.? [facility] staff informed BUSINESS EDUCATION TEACHER that patient possesses a daughter, Brianna Mccormick; and that [facility] staff (Yves Cotto) feels that it would be appropriate for patient's daughter to be surrogate medical decision maker.? Discussed with patient permission to contact daughter Brianna Mccormick to confirm with daughter willingness to be patient's surrogate medical decision maker. Patient in agreement.? Both patient and [facility] worker, Yves Cotto; in agreement for BUSINESS EDUCATION TEACHER to contact patient's daughter.? BUSINESS EDUCATION TEACHER obtained contact number for patient's daughter Brianna Mccormick .? BUSINESS EDUCATION TEACHER conducted phone contact with patient's daughter, Brianna Mccormick; to discuss role/responsibility of surrogate medical decision maker.? Daughter confirmed with BUSINESS EDUCATION TEACHER that she will assigned surrogate medical decision maker for the patient.? BUSINESS EDUCATION TEACHER updated patient, Yves Cotto and ICU resident.? Patient confirmed that surrogate medical decision maker is daughter, Brianna Mccormick .
[2024-12-24 09:09] LABS: Base Excess -11 (-3-3); HCO3 15 mEq/L (20-26); O2 Saturation 100 % (91-98); PCO2 34 mmHg (32.0-48.0); PO2 166 mmHg (83-108); pH, Arterial 7.25 (7.35-7.45)
[2024-12-24 09:09] LABS: Lactate (Lactic Acid) 6.0 mMol/L (0.4-2.0)
[2024-12-24 09:10] LABS: Inspired Oxygen, FIO2 50 %
[2024-12-24 09:11] LABS: Allen Test Performed/OK; Puncture Site Right Radial
[2024-12-24 09:23] LABS: Reflex Lactate? Y
[2024-12-24 09:38] LABS: Vancomycin,Trough 21.6 mcg/mL (5.0-10.0)
--- NOTE | 2024-12-24 10:00 | PD.RESCONSUL ---
HPI Data of Consult Requesting Physician: Tawanna Donovan MD Admitting Provider: Alf Villaseñor DO Attending Provider: Tawanna Donovan MD Primary Care Provider: Lee Singer MD Consult Narrative Reason for consult: A-fib with RVR, new onset CHF History of present illness: HPI:A 54-year-old female patient with past medical history of insulin-dependent diabetes mellitus, bilateral lower limb lymphedema, lipedema, asthma, epilepsy, morbid obesity, wheelchair-bound for 9 years, was brought to the ED on 22 December due to left lower extremity pain and clear cirrhosis fluid oozing. This incident happened after she slammed her left leg in a wall. Patient was found to have left leg cellulitis and was admitted for sepsis secondary to left leg cellulitis. A rapid response was called while the patient on floors after her blood pressure dropped to 87/54 with heart rate of 114. Patient was found to be in shock state and was upgraded to ICU. In the ICU patient was started on norepinephrine and clindamycin. During her stay in the ICU patient developed A-fib with RVR patient was started on amiodarone drip. At this time patient remain on BiPAP due to her hypoventilation syndrome and hypoxia. Patient was also noted to be severely lethargic and was unable to provide history. Most of the information were taken from the patient's chart PMH: As above PSX: Unknown PFX: Lives with family, grandson is caregiver Social hx: Alcohol: Denied Tobacco: Denied Illicit drugs: Denied Allergies:Aspirin, codeine, Keppra, morphine, penicillin causes dyspnea cc:: cc: Tawanna Donovan MD Review of Systems Review of Systems ROS Unobtainable: unobtainable due to mental status Exam Vital Signs Temp Pulse Resp BP Pulse Ox O2 Del Method O2 Flow Rate 98.2 F 105 H 23 H 95/66 95 Nasal Cannula 2 12/24/24 03:45 12/24/24 08:40 12/24/24 08:28 12/24/24 08:40 12/24/24 08:28 12/23/24 12:01 12/24/24 06:09 FiO2 50 12/24/24 08:28 Narrative Exam GEN: on BiPAP, severely lethargic However responsive. Central line on the right side. HEENT: NC/AC, PERRLA, oral mucosa dry, neck supple, with androgenic hair distribution on the chin CVS: RRR, S1-S2 present, no murmurs appreciated RESP: CTAB GI: soft,non distended, non tender, NBS MSK: Severe left leg swelling with severe hyperkeratotic changes. There is also oozing of yellowish serous fluid with mild erythema specially on the thigh. Right leg also has hyperkeratotic changes up to the mid espinoza of the right leg. No erythema SKIN: warm and dry SENIOR RADIATION THERAPIST: Limited due to patient mental status Results Labs 12/25/24 21:08 12/25/24 18:07 Labs: Short CBC 12/23/24 12/24/24 Range/Units 09:46 03:05 WBC 8.1 D 10.6 (3.6-11.0) Thou/mm3 Hgb 11.8 L 11.6 L (12.0-16.0) g/dL Hct 37.4 37.8 (36.0-46.0) % Plt Count 90 L D 104 L (140-440) Thou/mm3 BMP 12/23/24 12/23/24 12/24/24 09:46 17:53 03:05 Sodium 137 136 134 L Potassium 4.2 4.0 4.0 Chloride 103 102 102 Carbon Dioxide 14.7 L* 17.6 L 19.2 L BUN 11 17 21 Creatinine 2.1 H 2.1 H 2.2 H Glucose 70 L 128 H D 133 H Calcium 8.3 7.9 L 8.3 Cardiac Enzymes 12/23/24 12/23/24 Range/Units 12:05 17:53 Total Creatine Kinase 450 H D 251 H D (34-171) U/L Liver Function 12/23/24 12/23/24 12/24/24 Range/Units 09:46 17:53 03:05 Total Bilirubin 2.1 H 1.4 H D (0.3-1.2) mg/dL AST 40 H 27 (0-34) U/L ALT 19 18 (10-49) U/L Alkaline Phosphatase 61 68 (46-116) U/L Albumin 3.1 L 2.8 L 2.7 L (3.5-5.0) gm/dL ABG Interpretation ABG results: 12/22/24 12/22/24 12/23/24 16:49 23:40 13:05 ABG pH 7.39 7.29 L D ABG pCO2 33 37 ABG pO2 60 L 73 L ABG HCO3 20 18 L ABG O2 Saturation 92 94 ABG Base Excess -5 L -8 L VBG pH 7.35 VBG pCO2 37 VBG pO2 27 VBG Base Excess -5 L 12/24/24 08:54 ABG pH 7.25 L ABG pCO2 34 ABG pO2 166 H D ABG HCO3 15 L ABG O2 Saturation 100 H ABG Base Excess -11 L VBG pH VBG pCO2 VBG pO2 VBG Base Excess Quality Measures Quality Measures none Medications Home Medications and Allergies Home Medications ?Medication ?Instructions ?Recorded ?Confirmed ?Type carbamazepine 100 mg 100 mg PO BID 09/23/20 09/23/20 History tablet,extended release,12 hr albuterol sulfate 90 mcg/actuation 2 puff inhalation Q4H PRN 12/23/24 12/23/24 History aerosol inhaler shortness of breath or wheezing atorvastatin 40 mg tablet 40 mg PO ONCE HS 12/23/24 12/23/24 History docusate sodium 100 mg capsule 100 mg PO DAILY PRN constipation 12/23/24 12/23/24 History ergocalciferol (vitamin D2) 1,250 50,000 unit PO .once a week 12/23/24 12/23/24 History mcg (50,000 unit) capsule ferrous sulfate 325 mg (65 mg 325 mg PO DAILY 12/23/24 12/23/24 History iron) tablet (FeroSul) insulin aspart U-100 100 unit/mL 20 unit subcut .with meals 12/23/24 12/23/24 History (3 mL) subcutaneous pen losartan 50 mg tablet 50 mg PO DAILY 12/23/24 12/23/24 History omeprazole 20 mg capsule,delayed 20 mg PO HS 12/23/24 12/23/24 History release tretinoin 0.025 % topical cream applic topical DAILY UD 12/23/24 History Allergies Allergy/AdvReac Type Severity Reaction Status Date / Time aspirin Allergy Severe Difficulty Verified 04/18/22 18:45 Breathing codeine Allergy Severe Difficulty Verified 04/18/22 18:45 Breathing levetiracetam (From Kera) Allergy Severe Difficulty Verified 04/18/22 18:45 Breathing morphine Allergy Severe Difficulty Verified 04/18/22 18:45 Breathing Penicillins Allergy Severe Difficulty Verified 04/18/22 18:45 Breathing Visit Medications Acetaminophen (Acetaminophen 325 Mg Tablet) 650 mg PO Q6H PRN PRN Reason: Pain 1-3 and/or Fever >100.1 Stop: 01/21/25 17:08 Last Admin: 12/23/24 10:19 Dose: 650 mg Hydrocodone Bitart/Acetaminophen (Hydrocodone/Apap 10/325 Tab) 1 tab PO Q4HR PRN PRN Reason: PAIN SCALE 7-10 (Severe Stop: 12/27/24 17:08 Last Admin: 12/23/24 19:24 Dose: 1 tab Hydrocodone Bitart/Acetaminophen (Hydrocodone/Apap 5/325 Tablet) 1 tab PO Q4HR PRN PRN Reason: PAIN SCALE 4-6 (Moderate Stop: 12/27/24 17:08 Albuterol/Ipratropium (Albuterol/Ipratropium (Duoneb) Rt Ginny 3 Ml Nebu) 3 ml INH Q8HRRT PRN PRN Reason: wheezing Stop: 01/22/25 07:44 Clotrimazole (Clotrimazole Cr 1% 30 Gm Tube) 0 gm TOP BID TRACY Stop: 01/22/25 08:59 Last Admin: 12/24/24 08:40 Dose: 1 applicatio Dextrose (Dextrose 50%-Water Inj 50 Ml Syringe) 25 ml IV Q15MIN PRN PRN Reason: BG 50-70 responsive npo pt Stop: 01/21/25 17:08 Dextrose (Dextrose 50%-Water Inj 50 Ml Syringe) 50 ml IV Q15MIN PRN PRN Reason: BG <50 OR BG <70 & pt unresponsive Stop: 01/21/25 17:08 Last Admin: 12/23/24 19:40 Dose: 50 ml Glucagon (Glucagon Inj 1 Mg Vial) 1 mg IM Q15MIN PRN PRN Reason: BG <70, and no IV access Heparin Sodium (Porcine) (Heparin Sod Inj 5000 Unit/Ml Vial) 7,500 unit SC Q8HR [facility] Stop: 01/06/25 13:59 Last Admin: 12/24/24 05:12 Dose: 7,500 unit Sodium Chloride (Ns) 1,000 mls @ 150 mls/hr IV .Q6H40M [facility]AC[facility] On Hold: 12/23/24 06:11 Stop: 01/22/25 00:59 Last Infusion: 12/23/24 06:45 Dose: 0 mls/hr Vancomycin/Sodium Chloride (Vancomycin/Ns 750 Mg Ivpb) 750 mg in 150 mls @ 120 mls/hr IV BID@1000,2200 TRACY; Protocol Stop: 12/30/24 09:59 Last Infusion: 12/23/24 22:58 Dose: Infused Norepinephrine Bitartrate (Levophed In Ns 16mg/250ml) 16 mg in 250 mls @ 7.369 mls/hr IV .Q24H PRN; Protocol PRN Reason: PER protocol Stop: 01/22/25 07:11 Last Titration: 12/24/24 07:01 Dose: 0.13 mcg/kg/min, 19.159 mls/hr Clindamycin/Sodium Chloride (Cleocin/Ns Ivpb) 600 mg in 50 mls @ 100 mls/hr IV Q8HR [facility] Stop: 12/30/24 09:34 Last Admin: 12/24/24 05:12 Dose: 100 mls/hr Dextrose (D10w 1000 Ml) 1,000 mls @ 45 mls/hr IV .[id number] [facility] Stop: 12/24/24 17:53 Last Admin: 12/23/24 19:41 Dose: 45 mls/hr Amiodarone HCl/Dextrose (Nexterone Ivpb) 360 mg in 200 mls @ 33.33 mls/hr IV .Q6H1M [facility] Stop: 12/24/24 14:30 Last Admin: 12/24/24 08:40 Dose: 33.33 mls/hr Meropenem 1,000 mg/ Sodium (Chloride) 50 mls @ 100 mls/hr IV Q12HR [facility] Stop: 12/31/24 20:59 Immune Globulin 20 gm/ Immune Globulin 10 gm/ Immune Globulin 5 gm/ Immune Globulin G/Gly/IgA 10 gm/ IV Miscellaneous Supplies 450 mls @ 75 mls/hr IV X1 ONE Stop: 12/24/24 15:59 Immune Globulin G/Gly/IgA 40 gm/ Immune Globulin G/Gly/IgA 5 gm/ IV Miscellaneous Supplies 450 mls @ 75 mls/hr IV X1 ONE Stop: 12/25/24 15:59 Insulin Human Lispro (Insulin Lispro (Admelog) 1 Unit/0.01 Ml Unit) 0 unit SC ACHS [facility]; Protocol Stop: 01/21/25 20:59 Last Admin: 12/24/24 07:59 Dose: Not Given Ondansetron HCl (Ondansetron Inj 2 Mg/Ml Inj 2 Ml) 4 mg IVP Q6H PRN; Protocol PRN Reason: NAUSEA OR VOMITING Stop: 01/21/25 17:08 Pharmacy Consult (Vancomycin Pharmacy To Dose 1 Each Each) 1 each IV QDAY PRN PRN Reason: CONSULT Stop: 01/22/25 08:59 Pharmacy Consult (Pharmacy Renal Dose Adjustment 1 Ea) 1 each XX PRN PRN PRN Reason: CONSULT Stop: 01/22/25 11:14 Sennosides (Senna Tablet) 1 tab PO QDAY PRN; Protocol PRN Reason: constipation Stop: 01/21/25 17:08 Discontinued Medications Albuterol/Ipratropium (Albuterol/Ipratropium (Duoneb) Rt Ginny 3 Ml Nebu) 3 ml INH Q8HRRT [facility] Stop: 01/22/25 07:44 Last Admin: 12/23/24 08:19 Dose: 3 ml Fentanyl Citrate (Fentanyl Cit Inj 50 Mcg/Ml Amp 2ml) 50 mcg IVP X1 ONE Stop: 12/22/24 14:54 Last Admin: 12/22/24 15:56 Dose: 50 mcg Fentanyl Citrate (Fentanyl Cit Inj 50 Mcg/Ml Amp 2ml) 25 mcg IVP X1 ONE Stop: 12/23/24 20:42 Last Admin: 12/23/24 20:56 Dose: 25 mcg Heparin Sodium (Porcine) (Heparin Sod Inj 5000 Unit/Ml Vial) 5,000 unit SC Q12HR [facility] Stop: 01/05/25 20:59 Last Admin: 12/23/24 08:03 Dose: 5,000 unit Lactated Ringer's (Lactated Ringers) 1,000 mls @ 999 mls/hr IV .Q1H1M ONE Stop: 12/22/24 15:53 Last Infusion: 12/22/24 19:38 Dose: Infused Vancomycin/Sodium Chloride (Vancomycin/Ns 1 Gm Ivpb) 200 mls @ 120 mls/hr IV X1 ONE Stop: 12/22/24 16:33 Clindamycin Phosphate 900 mg/ (IV Miscellaneous Supplies) 50 mls @ 50 mls/hr IV X1 ONE Stop: 12/22/24 15:56 Last Infusion: 12/22/24 17:22 Dose: Infused Cefepime HCl 2 gm/ Sodium (Chloride) 50 mls @ 100 mls/hr IV Q12HR [facility]; Protocol Stop: 12/29/24 17:12 Last Admin: 12/24/24 08:39 Dose: 100 mls/hr Lactated Ringer's (Lactated Ringers) 1,000 mls @ 75 mls/hr IV .[id number] ONE Stop: 12/23/24 06:34 Last Admin: 12/22/24 19:30 Dose: 75 mls/hr Vancomycin HCl/Dextrose (Vancomycin/D5w 1500 Mg Ivpb) 300 mls @ 120 mls/hr IV X1 ONE Stop: 12/22/24 19:59 Last Infusion: 12/22/24 23:03 Dose: Infused Lactated Ringer's (Lactated Ringers) 1,000 mls @ 999 mls/hr IV .Q1H1M ONE Stop: 12/22/24 19:21 Last Infusion: 12/22/24 23:07 Dose: Infused Lactated Ringer's (Lactated Ringers) 1,000 mls @ 999 mls/hr IV .Q1H1M ONE Stop: 12/22/24 22:03 Last Infusion: 12/22/24 23:07 Dose: Infused Lactated Ringer's (Lactated Ringers) 1,000 mls @ 999 mls/hr IV .Q1H1M ONE Stop: 12/23/24 01:10 Last Admin: 12/23/24 00:31 Dose: 999 mls/hr Magnesium Sulfate (Magnesium Sulfate Ivpb) 4 gm in 50 mls @ 12.5 mls/hr IV X1 ONE Stop: 12/23/24 04:53 Last Admin: 12/23/24 01:26 Dose: 12.5 mls/hr Lactated Ringer's (Lactated Ringers) 1,000 mls @ 200 mls/hr IV .Q5H ONE Stop: 12/22/24 22:14 Sodium Chloride (Ns) 250 mls @ 999 mls/hr IV .Q16M ONE Stop: 12/23/24 04:04 Last Admin: 12/23/24 03:50 Dose: 999 mls/hr Norepinephrine Bitartrate (Levophed In Ns 16mg/250ml) 16 mg in 250 mls @ 6.379 mls/hr IV .Q24H PRN; Protocol PRN Reason: PER protocol Stop: 01/22/25 04:50 Last Titration: 12/23/24 07:19 Dose: 0 mcg/kg/min, 0 mls/hr Immune Globulin G/Gly/IgA 80 gm/ Immune Globulin G/Gly/IgA 20 gm/ IV Miscellaneous Supplies 1,000 mls @ 166.667 mls/hr IV X1 ONE Stop: 12/23/24 19:59 Last Admin: 12/23/24 15:22 Dose: 166.667 mls/hr Prothrombin Complex Concent ( Human) 5,000 unit/ Sterile Water 200 ml/ IV Miscellaneous Supplies 200 mls @ 200 mls/hr IV X1 ONE Stop: 12/23/24 14:37 Last Infusion: 12/23/24 15:45 Dose: Infused Magnesium Sulfate (Magnesium Sulfate Ivpb) 4 gm in 50 mls @ 12.5 mls/hr IV X1 ONE Stop: 12/24/24 00:06 Last Admin: 12/23/24 22:19 Dose: 12.5 mls/hr Amiodarone HCl/Dextrose (Nexterone Ivpb) 150 mg in 100 mls @ 600 mls/hr IV .Q10M ONE Stop: 12/23/24 20:30 Last Admin: 12/23/24 20:48 Dose: 600 mls/hr Amiodarone HCl/Dextrose (Nexterone Ivpb) 360 mg in 200 mls @ 33.333 mls/hr IV .Q6H ONE Stop: 12/24/24 02:29 Last Admin: 12/23/24 20:59 Dose: 33.333 mls/hr Amiodarone HCl/Dextrose (Nexterone Ivpb) 360 mg in 200 mls @ 16.667 mls/hr IV .Q12H [facility] Stop: 12/25/24 02:29 Magnesium Sulfate (Magnesium Sulfate Ivpb) 4 gm in 50 mls @ 25 mls/hr IV X1 ONE Stop: 12/23/24 22:25 Last Admin: 12/23/24 20:48 Dose: 25 mls/hr Midodrine (Midodrine 5 Mg Tablet) 10 mg PO X1 ONE Stop: 12/23/24 03:37 Last Admin: 12/23/24 03:50 Dose: 10 mg Phentolamine Mesylate (Phentolamine Mesylate Inj 5 Mg/Ml Vial) 5 mg SC X1 ONE Stop: 12/23/24 08:46 Last Admin: 12/23/24 08:51 Dose: 5 mg Potassium Chloride (Potassium Chloride 20 Meq Tabcr) 40 meq PO X1 ONE Stop: 12/22/24 17:16 Last Admin: 12/22/24 17:32 Dose: 40 meq Potassium Chloride (Potassium Chloride 20 Meq Tabcr) 40 meq PO X1 ONE Stop: 12/22/24 21:01 Last Admin: 12/22/24 22:57 Dose: 40 meq Assessment & Plan Plan Summary:A 54-year-old female patient with past medical history of insulin-dependent diabetes mellitus, bilateral lower limb lymphedema, lipedema, asthma, epilepsy, morbid obesity, wheelchair-bound for 9 years, was brought to the ED on 22 December due to left lower extremity pain and clear cirrhosis fluid oozing. Patient was admitted to the ICU for distributive shock. Cardiology team was consulted because of new onset A-fib with RVR and newly diagnosed CHF. Assessment and plan #Newly diagnosed heart failure #A-fib with RVR Patient presented with sepsis secondary to left leg cellulitis, her condition worsened to distributive shock. During her stay she developed A-fib with RVR we started the patient on amiodarone drip. Even though her body habitus echo was done and showed ejection fraction of 40 to 45%. With normal RV function. BNP was 204 which most likely skewed by patient obesity. Troponin was negative. Plan ? Due to patient condition no invasive cardiac procedure will be done at this time ? Continue the patient on amiodarone drip and can transition to amiodarone p.o. 200 mg if patient tolerate oral feed. ? Strict in and out ? Keep potassium and magnesium above 4 and 2 respectively within normal range ? Will start the patient on GDMT as soon as her general condition improved #Distributive shock most likely secondary to sepsis #Sepsis secondary to left leg cellulitis #Toxic shock syndrome #Lower extremity lymphedema Plan ? Patient was started on Clindamycin, meropenem by the primary team, patient was also given IgG immunoglobulin ? Patient on norepinephrine drip for distributive shock #History of seizure disorder Patient on antiseizure meds #Concern of DIC #History of COPD Supplemental oxygen, BiPAP as needed, DuoNebs #Elevated bilirubin, elevated AST, hypoalbuminemia Secondary to toxic shock syndrome versus septic shock Follow primary team recommendations #Lactic acidosis #YOU #Non-anion gap metabolic acidosis Lactic acid was 6 downtrended to 5.6 Thank you for your consultation, please do not hesitate to reach out if you have any question or concern - Patient's plan and care discussed with my attending, Dr. Chapa_ Cary Fuller MD Internal Medicine PGY-3 Attending Provider Attestation/Addendum I have personally seen and examined the patient separately on the above date of service and discussed the plan of care with the resident. I reviewed the resident consultation progress note and agree with the resident findings and plan in the note above and have also edited the documentation to reflect my findings and plan. Alex Chapa M.D. Interventional Cardiology
--- NOTE | 2024-12-24 11:15 | ESPR_ITS ---
<Statement entered by Michael Verduzco MD - 12/24/24 13:27> I saw and examined patient personally and supervised PGY 1 resident, Dr. Dykes with formulating a management plan. I agree with the documentation with the exceptions as listed below. 54-year-old female with past medical history of insulin-dependent DM type II, lymphedema, asthma, morbidly obese, history of epilepsy, nonambulatory for 9 years, wheelchair-bound was initially admitted to the medical floor for sepsis secondary to cellulitis of the left lower extremity. Over the course of the night, her clinical condition deteriorated, with concerns for distributive shock in the setting of sepsis, Despite initial fluid resuscitation, she remained persistently hypotensive, requiring transfer to the ICU for vasopressor support and close monitoring . 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 EKG showed A-fib with RVR rate 141. Patient was started on amiodarone infusion as per cardiology recommendations. Heart rate improved to 80s/110s overnight. Patient was previously on cefepime, vancomycin and clindamycin for treatment of toxic shock syndrome. There are areas of desquamation and violaceous discoloration on her medial and lower legs have since increased from yesterday. She also received 1 dose of IVIG at 1 g/kg for corrected body weight prothrombin complex concentrate for possible DIC. Today we switched her cefepime to meropenem and ordered an additional dose of IVIG at 0.5 g/kg for 2 days. Today patient increased work of breathing and tachypnea and was placed on BiPAP. Repeat ABG did show pH 7.25, pCO2 34, PaO2 166. Will continue with BiPAP therapy and give her on breaks as necessary. Patient is at high risk of deterioration and may possibly need intubation if no improvement. For her distributive shock, patient continues to be on norepinephrine and titrating as necessary. NICOM assessment was done and patient is not fluid responsive. Patient's next of kin, daughter, Brianna Mccormick was contacted and updated on her mother's critical condition and high risk of deterioration and possible . She understood and all questions were answered appropriately. Plan of care discussed with Attending Dr. Zion Verduzco MD PGY 2 Disclaimer: This note was dictated by speech recognition. Minor errors in tone regulator may be present due to voice recognition software. Documentation for date of: 12/24/24 Subjective Subjective Interval history: 54-year-old female with past medical history of prior SC?, Insulin-dependent type 2 diabetes, lymphedema, lipedema, asthma, epilepsy, morbid obesity, nonambulatory for 9 years, wheelchair-bound presenting to the ED on 12/22 with left lower extremity pain and oozing. Patient states that about 3 weeks ago she slammed her left leg on a brick wall and ever since that time her left leg has progressively worsened and started oozing. Patient lives at home and is largely immobile and requires labor relations supervisor in the form of her grandson who takes care of her. Patient has not been seen by outpatient wound care as she says her motorized wheelchair has been broken. Patient also states that she has had a heart attack in the past but has never followed up with cardiology. Patient also has asthma but she denies having any shortness of breath at this time, uses albuterol twice a week. Medical history: As stated above Surgical history: Denies Allergies: Aspirin, codeine, Keppra, morphine, penicillin causes dyspnea Medications: Pending med rec Family history: Patient's mother and grandmother from breast cancer, denies having any family history of heart attack or stroke Social history: Patient lives at home, grandson labor relations supervisor, denies any alcohol, tobacco or illicit drug use ROS: All 12 systems assessed and the patient denies unless otherwise stated in HPI In the ED, patient presented mildly hypotensive 92/56, heart rate of 92, respiratory rate of 18, afebrile satting 96 on room air. Pertinent lab findings include WBC of 5.8, potassium 3.1, creatinine 1.8, eGFR of 33, lactic acid initially 7.1 uptrending to 8.0, T. bili of 2.2, AST 21, ALT 14, BNP of 385, Pro-Umberto of 87. Urinalysis shows signs of urinary tract infection. Venous Doppler study is negative for DVT, chest x-ray does not show any active disease and tibia/fibula x-ray shows no acute fracture. Patient was admitted to floors for sepsis secondary to cellulitis . At midnight [facility] [employer]ER was called due to hypotension, despite aggressive fluid resuscitation patient was remained persistent hypotensive, however nursing staff was having a hard time to obtain accurate measurement due to body habitus. Repeat labs did revealed lactic acidosis which did not improved even after 5 L of fluids, Cheetah monitor was placed, patient found to be not fluid responsive. At this point decision was made to upgrade patient to ICU for pressor support. 12/23/24: Overnight patient had no further events. Input 5 L, output 0. This a.m. IV access infusing norepinephrine extravasated and was removed. Patient complains of mild SOB at rest and also 9/10 constant left leg pain. Labs showed Hb 12.2, PLT 149, BUN 14, CR 2, glucose 84. Lactic acid down trended to 5.6 from 6, Mg 1.5, CK 515, T. bili 2. PTT 33.7, PT 16.7, INR 1.6, fibrinogen 560, D-dimer 3780. Blood cultures growing GPC preliminary. CT of the lower leg showed extensive lymphedema with cellulitis. No signs of osteomyelitis or necrotizing fasciitis. Repleted with magnesium sulfate 4 g IV x 1. Started on clindamycin, renally dosed for toxic shock syndrome. Phentolamine SC was administered for extravasation of norepinephrine. RIJ CVC was placed for norepinephrine administration. DuoNebs were placed as needed. Patient was also started on IV Ig and prothrombin complex concentrate for toxic shock syndrome and likely DIC. 12/24/24: Overnight patient went into SVT with highest rate being 221. EKG showed A-fib with RVR rate 141. Patient was started on amiodarone infusion as per cardiology recommendations. Heart rate improved to 80s/110s overnight. Patient was examined at bedside; she seems to be in some distress with tachypnea and labored breathing noted (later put on BiPAP). The cellulitis and lesions 2/2 extravasation of Levophed seem unchanged from yesterday. Her YOU seems to be improving due to an increased urine output of 460 mL last night whereas the day before she was mostly anuric. Based on urine labs showing random creatinine 203, random sodium 21.1, random potassium 68, and random chloride 29.0, the most likely cause of the YOU is renal hypoperfusion 2/2 toxic shock syndrome. Blood cultures grew Streptococcus pyogenes, reaffirming that patient's current hypotension and other symptoms are 2/2 toxic shock syndrome from the above organism which may have originated from patient's cellulitis. Patient's lactic acid continues to trend upwards from 5.1 to 5.4 and now is 6.0 at the time of writing this note (11:30). Other pertinent labs include sodium drop to 134 from 136, magnesium bump to 3.3 from 1.5, creatinine bump to 2.2 from 2.1, PT bump to 12.3 from 12.1, INR 1.1, APTT bump to 45.8 from 30.5, fibrinogen drop to 506 from 560, total bilirubin drop to 1.4 from 2.1, and CK drop to 251 from 450. Current plan is to dampen the cytokine storm from toxic shock syndrome by giving IVIG (to be dosed by pharmacy), switch IV cefepime to IV meropenem in her antibiotic regimen, and continue pressor support to maintain MAP > 65 (patient does not seem fluid-responsive). Exam Vital Signs Temp Pulse Resp BP Pulse Ox O2 Del Method O2 Flow Rate 97.1 F 65 29 H 103/64 90 L Nasal Cannula 2 12/24/24 08:00 12/24/24 11:01 12/24/24 11:01 12/24/24 10:45 12/24/24 11:01 12/24/24 08:00 12/24/24 08:00 FiO2 50 12/24/24 08:28 Narrative Exam Physical Exam: General: Extremely morbidly obese female. A/O x 3 in some distress. Head: Normocephalic, atraumatic. Eyes: EOMI. Anicteric, vision grossly intact. Ears: No ear pain, no ear discharge, Hearing grossly intact. Nose: No nasal discharge. Mouth/Throat: Facial hair bilaterally noted on the chin but not at center of chin (female hirsutism). Poor dentition. Oral mucosa dry. No obvious lesions in oropharynx. Cardiovascular: Difficult to auscultate due to body habitus but seemingly tachycardic rate and normal rhythm, no murmur, no JVD or carotid bruits. +S1/S2. Respiratory: Difficult to auscultate due to body habitus but anterior lung mccallum seemingly clear to auscultation without wheezing or crackles appreciated. Tachypneic and labored breathing (later put on BiPAP). No accessory muscle use. Gastrointestinal: Soft, nontender, obese, no palpable masses. No guarding or rebound tenderness. Difficult to appreciate bowel sounds due to body habitus. Extremities: Massive bilateral lymphedema that is significantly worse at left leg. Large area of wrinkly, rough, induration most prominent at left medial thigh that spreads to all areas distally, while right leg also has areas like these as well distributed all across right espinoza and areas distal to the right espinoza. Black eschars noted at left medial thigh and at 2nd and 4th toes on left foot with large patch of ulceration / desquamation on anterolateral left espinoza. Significant lichenification of left foot most dense at the base of the 3rd toe and dorsolaterally. Lichenification of right foot as well. Blood seeping out from left hallux toenail (mostly dried), significant hyperkeratinization and elevation of toenails, especially left 3rd toenail and right hallux toenail. Ecchymosis of right proximal upper extremity, and red-purple ecchymosis of right antecubital fossa that is unchanged from yesterday. Objective Labs 12/25/24 04:50 12/25/24 04:50 Labs: Laboratory Results - last 24 hr 12/23/24 12/23/24 12/23/24 09:46 12:05 13:05 WBC RBC Hgb Hct MCV MCH MCHC RDW Std Deviation Plt Count Neut % (Auto) Lymph % (Auto) [place] % (Auto) Eos % (Auto) Baso % (Auto) Neut # (Auto) Lymph # (Auto) [place] # (Auto) Eos # (Auto) Baso # (Auto) Immature Gran # (Auto) Absolute Nucleated RBC Immature Gran % Nucleated RBC % PT INR APTT Fibrinogen Puncture Site Right Brachial ABG pH 7.29 L D ABG pCO2 37 ABG pO2 73 L ABG HCO3 18 L ABG O2 Saturation 94 ABG Base Excess -8 L Oxygen Liter Flow 3 FiO2 Sodium 137 Potassium 4.2 Chloride 103 Carbon Dioxide 14.7 L* Anion Gap 19 H BUN 11 Creatinine 2.1 H Estim Creat Clear Calc 43.2 L eGFR 27 L BUN/Creatinine Ratio 5 L Glucose 70 L Calculated Osmolality 271 L Lactic Acid Calcium 8.3 Corrected Calcium 9.0 Phosphorus Magnesium Total Bilirubin 2.1 H AST 40 H ALT 19 Alkaline Phosphatase 61 Total Creatine Kinase 450 H D Total Protein 5.1 L Albumin 3.1 L Globulin 2.0 L Albumin/Globulin Ratio 1.6 Ur Random Creatinine Ur Random Sodium Ur Random Potassium Ur Random Chloride Vancomycin Trough 12/23/24 12/23/24 12/23/24 15:06 15:10 17:53 WBC RBC Hgb Hct MCV MCH MCHC RDW Std Deviation Plt Count Neut % (Auto) Lymph % (Auto) [place] % (Auto) Eos % (Auto) Baso % (Auto) Neut # (Auto) Lymph # (Auto) [place] # (Auto) Eos # (Auto) Baso # (Auto) Immature Gran # (Auto) Absolute Nucleated RBC Immature Gran % Nucleated RBC % PT 12.1 D INR 1.1 APTT 30.5 Fibrinogen Puncture Site ABG pH ABG pCO2 ABG pO2 ABG HCO3 ABG O2 Saturation ABG Base Excess Oxygen Liter Flow FiO2 Sodium 136 Potassium 4.0 Chloride 102 Carbon Dioxide 17.6 L Anion Gap 16 BUN 17 Creatinine 2.1 H Estim Creat Clear Calc 43.2 L eGFR 27 L BUN/Creatinine Ratio 8 L Glucose 128 H D Calculated Osmolality 275 Lactic Acid 5.1 H* 5.9 H* Calcium 7.9 L Corrected Calcium 8.9 Phosphorus 3.5 Magnesium 1.5 L Total Bilirubin AST ALT Alkaline Phosphatase Total Creatine Kinase 251 H D Total Protein Albumin 2.8 L Globulin Albumin/Globulin Ratio Ur Random Creatinine 203 H Ur Random Sodium 21.1 Ur Random Potassium 68 H Ur Random Chloride 29.0 L Vancomycin Trough 12/23/24 12/23/24 12/23/24 20:40 20:40 23:38 WBC RBC Hgb Hct MCV MCH MCHC RDW Std Deviation Plt Count Neut % (Auto) Lymph % (Auto) [place] % (Auto) Eos % (Auto) Baso % (Auto) Neut # (Auto) Lymph # (Auto) [place] # (Auto) Eos # (Auto) Baso # (Auto) Immature Gran # (Auto) Absolute Nucleated RBC Immature Gran % Nucleated RBC % PT INR APTT Fibrinogen Puncture Site ABG pH ABG pCO2 ABG pO2 ABG HCO3 ABG O2 Saturation ABG Base Excess Oxygen Liter Flow FiO2 Sodium Potassium Chloride Carbon Dioxide Anion Gap BUN Creatinine Estim Creat Clear Calc eGFR BUN/Creatinine Ratio Glucose Calculated Osmolality Lactic Acid 6.3 H* Cancelled Cancelled Calcium Corrected Calcium Phosphorus Magnesium Total Bilirubin AST ALT Alkaline Phosphatase Total Creatine Kinase Total Protein Albumin Globulin Albumin/Globulin Ratio Ur Random Creatinine Ur Random Sodium Ur Random Potassium Ur Random Chloride Vancomycin Trough 12/23/24 12/24/24 12/24/24 23:38 03:05 06:15 WBC 10.6 RBC 4.65 Hgb 11.6 L Hct 37.8 MCV 81 MCH 24.9 L MCHC 30.7 L RDW Std Deviation 50.7 H Plt Count 104 L Neut % (Auto) 84 H Lymph % (Auto) 5 L [place] % (Auto) 2 Eos % (Auto) 1 Baso % (Auto) 0 Neut # (Auto) 8.9 H Lymph # (Auto) 0.6 L [place] # (Auto) 0.2 Eos # (Auto) 0.1 Baso # (Auto) 0.0 Immature Gran # (Auto) 0.92 H Absolute Nucleated RBC 0.02 H Immature Gran % 9 H Nucleated RBC % 0 PT 12.3 H INR 1.1 APTT 45.8 H D Fibrinogen 506 H Puncture Site ABG pH ABG pCO2 ABG pO2 ABG HCO3 ABG O2 Saturation ABG Base Excess Oxygen Liter Flow FiO2 Sodium 134 L Potassium 4.0 Chloride 102 Carbon Dioxide 19.2 L Anion Gap 13 BUN 21 Creatinine 2.2 H Estim Creat Clear Calc 41.3 L eGFR 26 L BUN/Creatinine Ratio 10 L Glucose 133 H Calculated Osmolality 273 L Lactic Acid 5.7 H* 5.1 H* 5.4 H* Calcium 8.3 Corrected Calcium 9.3 Phosphorus 3.6 Magnesium 3.3 H Total Bilirubin 1.4 H D AST 27 ALT 18 Alkaline Phosphatase 68 Total Creatine Kinase Total Protein 6.7 Albumin 2.7 L Globulin 4.0 H Albumin/Globulin Ratio 0.7 L Ur Random Creatinine Ur Random Sodium Ur Random Potassium Ur Random Chloride Vancomycin Trough 12/24/24 12/24/24 08:54 08:55 WBC RBC Hgb Hct MCV MCH MCHC RDW Std Deviation Plt Count Neut % (Auto) Lymph % (Auto) [place] % (Auto) Eos % (Auto) Baso % (Auto) Neut # (Auto) Lymph # (Auto) [place] # (Auto) Eos # (Auto) Baso # (Auto) Immature Gran # (Auto) Absolute Nucleated RBC Immature Gran % Nucleated RBC % PT INR APTT Fibrinogen Puncture Site Right Radial ABG pH 7.25 L ABG pCO2 34 ABG pO2 166 H D ABG HCO3 15 L ABG O2 Saturation 100 H ABG Base Excess -11 L Oxygen Liter Flow FiO2 50 Sodium Potassium Chloride Carbon Dioxide Anion Gap BUN Creatinine Estim Creat Clear Calc eGFR BUN/Creatinine Ratio Glucose Calculated Osmolality Lactic Acid 6.0 H* Calcium Corrected Calcium Phosphorus Magnesium Total Bilirubin AST ALT Alkaline Phosphatase Total Creatine Kinase Total Protein Albumin Globulin Albumin/Globulin Ratio Ur Random Creatinine Ur Random Sodium Ur Random Potassium Ur Random Chloride Vancomycin Trough 21.6 H* ABG Interpretation ABG results: 12/22/24 12/22/24 12/23/24 16:49 23:40 13:05 ABG pH 7.39 7.29 L D ABG pCO2 33 37 ABG pO2 60 L 73 L ABG HCO3 20 18 L ABG O2 Saturation 92 94 ABG Base Excess -5 L -8 L VBG pH 7.35 VBG pCO2 37 VBG pO2 27 VBG Base Excess -5 L 12/24/24 08:54 ABG pH 7.25 L ABG pCO2 34 ABG pO2 166 H D ABG HCO3 15 L ABG O2 Saturation 100 H ABG Base Excess -11 L VBG pH VBG pCO2 VBG pO2 VBG Base Excess Quality Measures Quality Measures none Assessment & Plan Assessment Current Active Medications: Generic Name Dose Route Start Last Admin Trade Name Freq PRN Reason Stop Dose Admin Acetaminophen 650 mg 12/22/24 17:09 12/23/24 10:19 Acetaminophen 325 Mg Tablet PO 01/21/25 17:08 650 mg Q6H PRN Administration Pain 1-3 and/or Fever >100.1 Hydrocodone Bitart/Acetaminophen 1 tab 12/22/24 17:09 12/23/24 19:24 Hydrocodone/Apap 10/325 Tab PO 12/27/24 17:08 1 tab Q4HR PRN Administration PAIN SCALE 7-10 (Severe Hydrocodone Bitart/Acetaminophen 1 tab 12/22/24 17:09 Hydrocodone/Apap 5/325 Tablet PO 12/27/24 17:08 Q4HR PRN PAIN SCALE 4-6 (Moderate Albuterol/Ipratropium 3 ml 12/23/24 09:36 Albuterol/Ipratropium (Duoneb) Rt Ginny 3 Ml Nebu INH 01/22/25 07:44 Q8HRRT PRN wheezing Clotrimazole 0 gm 12/23/24 09:00 12/24/24 08:40 Clotrimazole Cr 1% 30 Gm Tube TOP 01/22/25 08:59 1 applicatio BID TRACY Administration Dextrose 25 ml 12/22/24 17:09 Dextrose 50%-Water Inj 50 Ml Syringe IV 01/21/25 17:08 Q15MIN PRN BG 50-70 responsive npo pt Dextrose 50 ml 12/22/24 17:09 12/23/24 19:40 Dextrose 50%-Water Inj 50 Ml Syringe IV 01/21/25 17:08 50 ml Q15MIN PRN Administration BG <50 OR BG <70 & pt unresponsive Glucagon 1 mg 12/22/24 17:09 Glucagon Inj 1 Mg Vial IM Q15MIN PRN BG <70, and no IV access Heparin Sodium (Porcine) 7,500 unit 12/23/24 14:00 12/24/24 05:12 Heparin Sod Inj 5000 Unit/Ml Vial SC 01/06/25 13:59 7,500 unit Q8HR TRACY Administration Sodium Chloride 1,000 mls @ 150 mls/hr 12/23/24 01:00 12/23/24 06:45 Ns IV 01/22/25 00:59 0 mls/hr On Hold: 12/23/24 06:11 .Q6H40M TRACY Infusion Norepinephrine Bitartrate 16 mg in 250 mls @ 7.369 mls/hr 12/23/24 07:12 12/24/24 10:32 Levophed In Ns 16mg/250ml IV 01/22/25 07:11 0.09 mcg/kg/min .Q24H PRN 13.264 mls/hr PER protocol Titration Protocol 0.05 MCG/KG/MIN Clindamycin/Sodium Chloride 600 mg in 50 mls @ 100 mls/hr 12/23/24 09:35 12/24/24 10:40 Cleocin/Ns Ivpb IV 12/30/24 09:34 Infused Q8HR TRACY Infusion Dextrose 1,000 mls @ 45 mls/hr 12/23/24 19:40 12/23/24 19:41 D10w 1000 Ml IV 12/24/24 17:53 45 mls/hr .[id number] TRACY Administration Amiodarone HCl/Dextrose 360 mg in 200 mls @ 33.33 mls/hr 12/24/24 02:30 12/24/24 08:40 Nexterone Ivpb IV 12/24/24 14:30 33.33 mls/hr .Q6H1M TRACY Administration Meropenem 1,000 mg/ Sodium 50 mls @ 100 mls/hr 12/24/24 21:00 Chloride IV 12/31/24 20:59 Q12HR TRACY Immune Globulin 20 gm/ Immune 450 mls @ 75 mls/hr 12/24/24 10:00 Globulin 10 gm/ Immune IV 12/24/24 15:59 Globulin 5 gm/ Immune Globulin X1 ONE G/Gly/IgA 10 gm/ IV Miscellaneous Supplies Immune Globulin G/Gly/IgA 40 450 mls @ 75 mls/hr 12/25/24 10:00 gm/ Immune Globulin G/Gly/IgA IV 12/25/24 15:59 5 gm/ IV Miscellaneous X1 ONE Supplies Vancomycin/Sodium Chloride 100 mls @ 120 mls/hr 12/24/24 22:00 Vancomycin/Ns 500 Mg Ivpb IV 12/31/24 21:59 BID@1000,2200 [facility] Insulin Human Lispro 0 unit 12/22/24 21:00 12/24/24 07:59 Insulin Lispro (Admelog) 1 Unit/0.01 Ml Unit SC 01/21/25 20:59 Not Given ACHS [facility] Protocol Ondansetron HCl 4 mg 12/22/24 17:09 Ondansetron Inj 2 Mg/Ml Inj 2 Ml IVP 01/21/25 17:08 Q6H PRN NAUSEA OR VOMITING Protocol Pharmacy Consult 1 each 12/23/24 09:00 Vancomycin Pharmacy To Dose 1 Each Each IV 01/22/25 08:59 QDAY PRN CONSULT Pharmacy Consult 1 each 12/23/24 11:15 Pharmacy Renal Dose Adjustment 1 Ea XX 01/22/25 11:14 PRN PRN CONSULT Sennosides 1 tab 12/22/24 17:09 Senna Tablet PO 01/21/25 17:08 QDAY PRN constipation Protocol Plan 54-year-old female with past medical history of prior SC?, Insulin-dependent type 2 diabetes, lymphedema, lipedema, asthma, epilepsy, morbid obesity, nonambulatory for 9 years, wheelchair-bound presenting to the ED on 12/22 with left lower extremity pain and oozing. Overnight patient went into SVT with highest rate being 221. EKG showed A-fib with RVR rate 141. Patient was started on amiodarone infusion as per cardiology recommendations. Heart rate improved to 80s/110s overnight. Patient was examined at bedside; she seems to be in some distress with tachypnea and labored breathing noted (later put on BiPAP). The cellulitis and lesions 2/2 extravasation of Levophed seem unchanged from yesterday. Her YOU seems to be improving due to an increased urine output of 460 mL last night whereas the day before she was mostly anuric. Based on urine labs showing random creatinine 203, random sodium 21.1, random potassium 68, and random chloride 29.0, the most likely cause of the YOU is renal hypoperfusion 2/2 toxic shock syndrome. Blood cultures grew Streptococcus pyogenes, reaffirming that patient's current hypotension and other symptoms are 2/2 toxic shock syndrome from the above organism which may have originated from patient's cellulitis. Patient's lactic acid continues to trend upwards from 5.1 to 5.4 and now is 6.0 at the time of writing this note (11:30). Other pertinent labs include sodium drop to 134 from 136, magnesium bump to 3.3 from 1.5, creatinine bump to 2.2 from 2.1, PT bump to 12.3 from 12.1, INR 1.1, APTT bump to 45.8 from 30.5, fibrinogen drop to 506 from 560, total bilirubin drop to 1.4 from 2.1, and CK drop to 251 from 450. Current plan is to dampen the cytokine storm from toxic shock syndrome by giving IVIG (to be dosed by pharmacy), switch IV cefepime to IV meropenem in her antibiotic regimen, and continue pressor support to maintain MAP > 65 (patient does not seem fluid-responsive). Neuro #Seizure disorder Rx: -Continue patient's home medications Cardiovascular #Distributive shock, secondary to toxic shock syndrome Patient had initially received 5 L of IV fluid for resuscitation but hypotension remained refractory. She was then started on Levophed through a peripheral IV but this led to extravasation and phentolamine had to be infused around the site. Cardiogenic etiology less likely due to bedside echocardiogram showed seemingly adequate contractility without large pericardial effusion. Obstructive etiology less likely due to absence of pneumothorax or PE. Hypovolemic etiology less likely due to receiving adequate fluid infusion without source of active bleeding. Favored etiology of primary contribution is distributive shock secondary to sepsis and also likely toxic shock syndrome (due to drop in platelets, YOU, and other labs suggesting some level of DIC) DDx: TTP Dx: -12/22 BCx (04/01) grew Streptococcus pyogenes (Group A Streptococcus) -Echocardiogram pending Rx: -IVIG was given yesterday, will give again today -Antibiotic regimen as detailed in ID section (added clindamycin due to suspicion for toxic shock syndrome) -Follow up on echocardiogram -Monitor hemodynamics and titrate pressor support as appropriate to maintain MAP > 65 RRx: -Patient's pressor support needs are minimally changed from yesterday and she is neither volume responsive nor able to clear her lactic acid #HFrEF DDx: septic cardiomyopathy, ischemic cardiomyopathy Dx: -12/22 echocardiogram showed reduced EF of 45% Rx: -Further evaluation in the outpatient setting #Atrial fibrillation w/ RVR Occurs in the setting of acute illness Rx: -Given amiodarone which dropped heart rate to the 60s today Respiratory #Tachypnea Dx: -ABG showed findings suggestive of mixed acidosis Rx: -BiPAP (improved RR but patient also seemed to become agitated on it) -Monitor for possible need to be intubated Renal #YOU Creatinine initially elevated upon admission at 1.8 and has slowly up-trended with the most recent creatinine being 2.2 (from 2.1 yesterday) Baseline creatinine used to be WNL but last lab was from a few years ago At this time, suspect septic acute tubular necrosis due to improved UOP today from yesterday Dx: acute tubular necrosis, prerenal (intravascular depletion) Rx: -Ordered urine electrolytes -Strict I's & O's -Avoid nephrotoxins #Anion gap metabolic acidosis Dx: -Calculated anion gap after correcting for albumin was 21.5, indicating there has been a drop in the patient's bicarbonate levels Rx: -Ordered ABG GI No active issues Endocrine #T2DM Rx: -Insulin sliding scale Heme #Thrombocytopenia Likely 2/2 sepsis Dx: -Platelet count up-trended to 104 from 90 yesterday Rx: -Continue to monitor CBC and for signs of active bleeding RRx: -Currently, condition remains stable and there is no active bleeding noted at this time #Coagulopathy Dx: -Elevated INR, elevated D-Dimer, and elevated fibrinogen suggestive of low level DIC #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 necrotizing cellulitis of the lesion at the left lower extremity Rx: -KCentra 5,000 U (protein C unavailable) RRx: -Although there appears to have been continued spread overnight, patient's coagulation panel appears improved ID #Cellulitis Likely source of sepsis and also Streptococcus pyogenes bacteremia precipitating possible toxic shock syndrome Rx: -Currently on vancomycin (may be discontinued once MRSA screen returns [-]), meropenem (switched from cefepime today), and clindamycin (added today due to concern for TSS) #UTI Dx: -UA suggestive of infection Rx: -Follow up on urine cultures Disposition: Patient continues to meet criteria for ongoing ICU management due to continued need for pressors, possible need for intubation, and 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 DVT prophylaxis: Heparin 7500 q8HR GI prophylaxis: None Diet: NPO Pitts: Present Lines: Peripheral IV, Central IV Antibiotics: IV vancomycin, meropenem, and clindamycin CODE STATUS: FULL Patient plan of care was discussed with the attending supervisor mold yard, Dr. Zion Dykes, DO Internal Medicine, PGY-1
[2024-12-24 11:41] LABS: Lactate (Lactic Acid) 7.0 mMol/L (0.4-2.0)
[2024-12-24] MEDS: [UNRECOGNIZED DRUG - OTHER] IV (11:47)
[2024-12-24] MEDS: IMMUNE GLOB GA CA IV (11:47)
[2024-12-24 12:06] LABS: Reflex Lactate? Y
[2024-12-24] MEDS: MEROPENEM INJ 1,000 MG in SODIUM CHLORIDE 0.9% (Popper) 50 ML 100 MG IV ×2 (12:41→22:05)
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
[2024-12-24 14:32] LABS: Reflex Lactate? Y
[2024-12-24] MEDS: Norepinephrine/NS 16mg/250ml 16 MG/250 ML BAG 13.264 MG IV (15:30)
[2024-12-24 16:28] LABS: Lactate (Lactic Acid) 8.3 mMol/L (0.4-2.0)
--- NOTE | 2024-12-24 16:30 | XR_ITS ---
Examination: CT abdomen and pelvis without contrast. Coronal 3-D reconstructions. Sagittal 2-D reconstructions. Date and time of exam:December 24, 2024, 2048 hrs. Indications: Generalized abdominal pain beginning 3 weeks ago CTDI: vol (mGy): 24.5 DLP: (mGycm): 1078 Technique: Axial images of the abdomen have been obtained, 3 mm slice thickness Intravenous contrast material has not been administered. Low dose protocols were performed. One or more of the following dose reduction techniques were used; automated exposure control, adjustment of the mA and/or KV according to patient size, use of iterative reconstruction technique. Findings: Thick-walled cavitary lesion right lower lobe, 14 mm, image 9 Liver mildly irregular in contour Hyperdense gallbladder Splenomegaly, 15 cm No pancreatic or adrenal mass Trace free fluid in the pelvis 4 mm left renal calculus, no hydronephrosis or ureteral calculi 18 mm fat-containing umbilical hernia Normal appendix No bowel obstruction Mild anasarca Contracted urinary bladder No uterine mass, urinary bladder wall shows thickening, up to 12 mm, urinary Pitts catheter Impression: 14 mm thick-walled cavitary lesion right lower lobe, consider CT chest without contrast follow-up Primary hepatocellular disease versus cirrhosis Trace ascites Mild anasarca Prominent splenomegaly 4 mm nonobstructing left renal calculus No bowel obstruction Normal appendix Significant thickening of urinary bladder wall, differential would include cystitis
--- NOTE | 2024-12-24 16:35 | XR_ITS ---
Examination: CT bilateral lower extremities, without contrast. 2-D sagittal reconstructions. 2-D coronal reconstructions. 3-D reconstructions. Date and time of exam:December 24, 2047 hrs. Indications: Left leg pain beginning 3 weeks ago CTDI: vol (mGy):26.4 DLP: (mGycm):3221 Technique: Multiple 1.25 mm axial sections of the bilateral lower extremities without intravenous contrast have been obtained. 2-D sagittal and coronal reconstructions have been obtained. 3-D reconstructions have been obtained. Low dose protocols were performed. One or more of the following dose reduction techniques were used; automated exposure control, adjustment of the mA and/or KV according to patient size, use of iterative reconstruction technique. Findings: Edema/cellulitis in the subcutaneous fatty tissues surrounding the thighs greater on the left side Prominent edema and skin thickening medial left thigh No soft tissue abscess Negative for osteomyelitis Soft tissue defect posterior left lower extremity at the level of the knee extending to the ankle Severe edema surrounding the lower leg and ankle Impression: Extensive edema cellulitis in the subcutaneous fatty tissue primarily left lower extremity especially medial thigh and lower leg with soft tissue defect posterior lower leg at the level of the knee and tibia-fibula on the medial side Extensive skin thickening No fluid-filled drainable abscess Negative for osteomyelitis
[2024-12-24] MEDS: ROCURONIUM INJ 10 MG/ML VIAL 10 ML 100 MG IVP ×2 (16:50→23:34)
[2024-12-24] MEDS: fentaNYL CIT INJ 50 mCg/ML AMP 2ML 100 MCG IVP (16:50)
[2024-12-24] MEDS: ETOMIDATE INJ 2 MG/ML VIAL 10 ML 20 MG IVP (16:50)
--- NOTE | 2024-12-24 17:02 | EKG_ITS ---
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1970 Requested By: Tawanna Goff Order Number: [id number] Reading MD: Tawanna oGff Measurements Intervals [place] Rate: 64 P: [place]: QRS: 17 QRSD: 105 T: 3 QT: 479 QTc: 496 Interpretive Statements SUPRAVENTRICULAR RHYTHM LOW QRS VOLTAGE POSSIBLE ANTERIOR MYOCARDIAL INFARCTION , PROBABLY OLD Compared to ECG 12/23/2024 20:08:39 Supraventricular rhythm now present Low QRS voltage now present Atrial fibrillation no longer present Indeterminate axis no longer present Right bundle-branch block no longer present Left anterior fascicular block no longer present Myocardial infarct finding still present /store/S0/[id number].pdf
[2024-12-24] MEDS: ALBUMIN HUMAN-KJDA 25% IVPB 25 GM/100 ML BTL IV (17:20)
[2024-12-24] MEDS: RINGERS LACTATED 500 ML 500 ML 999 ML IV ×2 (17:30→19:51)
[2024-12-24 17:38] LABS: Base Excess, Venous -15 (-3-3); O2 Saturation, Venous 69 % (96-97); PCO2, Venous 42 mmHg (36-56); PO2, Venous 44 mmHg (15-58); pH, Venous 7.12 (7.33-7.66)
--- NOTE | 2024-12-24 17:38 | XR_ITS ---
Examination: AP chest single view Technique one AP portable semiupright chest single view Date and time: December 24, 2024, 1749 hrs., Comparison December 23, 2024 Indications: Hypoxic respiratory failure, postintubation, post orogastric tube placement Findings: Poor inspiratory effort chest with patient motion Atelectasis in the lower lung zones Right internal jugular central line tip right atrium, no pneumothorax Endotracheal tube tip 17 mm above doreen. Orogastric tube in the stomach versus duodenal bulb, consider retracting the orogastric tube 4 cm Impression: Consider retracting the orogastric tube 4 cm
[2024-12-24 17:39] LABS: Base Excess -15 (-3-3); HCO3 13 mEq/L (20-26); Inspired Oxygen, FIO2 60 %; O2 Saturation 99 % (91-98); PCO2 36 mmHg (32.0-48.0); PO2 127 mmHg (83-108)
[2024-12-24 17:41] LABS: Allen Test Performed/OK; Puncture Site Right Radial; pH, Arterial 7.16 (7.35-7.45)
[2024-12-24 17:43] LABS: Basophils # (Auto) 0.0 Thou/mm3 (0.0-0.2); Basophils % (Auto) 0 % (0-2.5); Eosinophils # (Auto) 0.0 Thou/mm3 (0.0-0.5); Eosinophils % (Auto) 0 % (0-10); Hematocrit 35.7 % (36.0-46.0); Hemoglobin 11.0 g/dL (12.0-16.0); Immature Granulocytes Auto 0.93 Thou/mm3 (0.00-0.00); Lymphocytes # (Auto) 0.8 Thou/mm3 (1.0-4.8); Lymphocytes % (Auto) 6 % (10-50); Mean Corpuscular HGB Conc 30.8 g/dl (31.0-37.0); Mean Corpuscular Hemoglobin 25.1 pg (25.0-35.0); Mean Corpuscular Volume 81 fL (80-100); Monocytes # (Auto) 0.4 Thou/mm3 (0.0-0.8); Monocytes % (Auto) 3 % (0-12); Neutrophils # (Auto) 12.2 Thou/mm3 (1.8-7.7); Neutrophils % (Auto) 85 % (37-80); Nucleated Red Blood Cell # 0.05 Thou/mm3 (0.00-0.00); Nucleated Red Blood Cell % 0 /100 WBC (0); Platelet Count 83 Thou/mm3 (140-440); RDW Standard Deviation 52.3 fL (36.4-46.3); Red Blood Count 4.39 Miln/mm3 (4.00-5.20); White Blood Count 14.4 Thou/mm3 (3.6-11.0)
[2024-12-24 17:43] LABS: Lactate (Lactic Acid) 9.0 mMol/L (0.4-2.0)
[2024-12-24] MEDS: fentaNYL 2,500 MCG/250 ML BAG 2,500 MCG/250 ML BAG IV (18:07)
[2024-12-24 18:10] LABS: Alanine Aminotransferase 26 U/L (10-49); Albumin, Serum 2.6 gm/dL (3.5-5.0); Albumin/Globulin Ratio 0.6 (1.2-2.2); Alkaline Phosphatase 85 U/L (46-116); Anion Gap 16 (7-16); Aspartate Amino Transferase 29 U/L (0-34); BUN/Creatinine Ratio 7 Ratio (12-20); Bilirubin,Total 1.1 mg/dL (0.3-1.2); Blood Urea Nitrogen 17 mg/dL (9-23); Calcium 8.4 mg/dL (8.3-10.6); Calcium (Corrected) 9.5 mg/dL (8.5-10.1); Chloride 100 mMol/L (98-107); Creatinine (Component) 2.3 mg/dL (0.6-1.3); Estimated Creatinine Clearance 39.5 mL/min (>60); Globulin 4.3 gm/dL (2.3-3.5); Glucose 115 mg/dL (74-106); Osmolality,Calculated 263 (275-295); Potassium 4.0 mMol/L (3.4-5.1); Sodium 130 mMol/L (136-145); Total Protein 6.9 gm/dL (5.7-8.2); eGFR 24 See Note
[2024-12-24 18:13] LABS: Carbon Dioxide 14.1 mMol/L (20.0-31.0)
[2024-12-24] MEDS: HYDROCORTISONE SOD SUCC INJ 100 MG 2 ML VIAL 50 MG IV ×2 (18:14→23:45)
[2024-12-24 18:19] LABS: D-Dimer 3060 ng/mL (<600); Fibrinogen 545 mg/dL (175-375); INR 1.2 (0.9-1.3); Partial Thromboplastin Time 51.2 Seconds (22.0-36.0); Prothrombin Time 12.7 Seconds (9.0-12.2)
--- NOTE | 2024-12-24 18:55 | XR_ITS ---
Examination: AP chest single view Technique: AP portable semiupright chest single view Date and time: December 24, 2024, 1906 hrs., Comparison 12/24/2024 1749 hrs. Indications: Status post placement temporary dialysis catheter Findings: Left internal jugular dialysis catheter tip right atrium Right internal jugular central line tip satisfactory position Endotracheal tube tip 34 mm above doreen Reduced inspiratory effort Orogastric tube in the stomach Impression: Interval left internal jugular dialysis catheter tip right atrium satisfactory position
--- NOTE | 2024-12-24 18:59 | PC.RT ---
CONNIE Nunez increased Fio2 on vent to 100%.
--- NOTE | 2024-12-24 19:07 | PD.INTPROC ---
PROCEDURES: Procedure Date / Time 12/24/241906 Central Line Placement Left IJ: Indication(s): poor, or inadequate peripheral venous access Informed consent obtained: procedure done urgently Time out done, and the following verified: correct patient, side and site, procedure and patient position Patient placed on monitor/pulse ox: Yes Hand Hygiene: alcohol-based hand rub Max Sterile Barrier Techniques used: cap, mask, sterile gown, sterile gloves and sterile full body drape Central line prep: Chlorhexidine scrub and sterile drapes applied Ultrasound used for placement: Yes Sterile Technique if Ultrasound used, including sterile gel: yes Central line lumen inserted: triple (Tri FLow HD Cath) Post procedure: sutured in place, good blood return, all ports aspirated, flushed, capped and sterile dressing applied Post procedure x-ray: tip of catheter in good position and no pneumothorax seen Patient tolerated procedure: well and no complications EBL(ml): 10 Complications: none Intubation Indication(s): acute Resp Failure Informed consent obtained: from patient Time out done, and the following verified: correct patient, side and site, procedure and patient position Sedative: fentanyl Mg given: 100 Sedative #2: etomidate Mg Given (sedative #2): 20 Paralytic: rocuronium Mg given: 100 Laryngoscope: fiber optic video scope ET tube size: 7.5 ET tube uncuffed: No Tube secured depth (cm): 24 Tube secured location: lips Tube placement confirmation: visualized tube passing through cords, equal breath sounds bilaterally, no breath sounds over epigastrium and confirmation by capnometry Patient tolerated procedure: well and no complications Intubation complications: none
[2024-12-24 19:22] LABS: Reflex Lactate? Y
[2024-12-24] MEDS: Sodium Bicarb Inj 8.4% SYR 50 ML SYRINGE IV ×2 (19:23→20:19)
[2024-12-24] MEDS: AMIODARONE 360 MG IVPB 360 MG/200 ML BAG 33.333 MG IV ×2 (19:32→19:42)
[2024-12-24 19:57] LABS: Base Excess -14 (-3-3); HCO3 15 mEq/L (20-26); Inspired Oxygen, FIO2 100 %; O2 Saturation 100 % (91-98); PCO2 50 mmHg (32.0-48.0); PO2 249 mmHg (83-108)
[2024-12-24 20:00] LABS: Lactic Acid, 3 HR 8.2 mMol/L (0.4-2.0)
[2024-12-24 20:02] LABS: Allen Test Not Performed; Puncture Site Right Radial; pH, Arterial 7.10 (7.35-7.45)
[2024-12-24] MEDS: SODIUM BICARB INJ 8.4% 1 mEq/ML 50 ML VIAL 50 MEQ IV (20:02)
[2024-12-24 20:36] LABS: Reflex Lactate? Y
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
[2024-12-24 22:49] LABS: Allen Test Not Performed; Base Excess -12 (-3-3); HCO3 15 mEq/L (20-26); Inspired Oxygen, FIO2 21 %; O2 Saturation 100 % (91-98); PCO2 38 mmHg (32.0-48.0); PO2 249 mmHg (83-108); Puncture Site Left Radial; pH, Arterial 7.21 (7.35-7.45)
[2024-12-24] MEDS: MIDAZOLAM INJ 1 MG/ML VIAL 2 ML 2 MG IVP (23:29)
[2024-12-25] VITALS (113 sets, daily range): BP systolic 63–131; BP diastolic 5–103; PULSE 57–138; RESP 28–37; TEMP 35.9–36.5; O2SAT 92–100; BMI 64.7
[2024-12-25] MEDS: VANCOMYCIN/NS 500 MG IVPB 100 ML 120 MG IV ×2 (00:12→09:46)
[2024-12-25] MEDS: HEPARIN SOD INJ 5000 UNIT/ML VIAL 7500 UNIT SC ×3 (00:16→14:03)
[2024-12-25 04:54] LABS: Allen Test Performed/OK; Base Excess -4 (-3-3); HCO3 21 mEq/L (20-26); Inspired Oxygen, FIO2 21 %; O2 Saturation 100 % (91-98); PCO2 37 mmHg (32.0-48.0); PO2 191 mmHg (83-108); Puncture Site Right Radial; pH, Arterial 7.36 (7.35-7.45)
[2024-12-25] MEDS: PROPOFOL 1,000 MG IVPB 1,000 MG/100 ML VIAL 4.722 MG IV (05:05)
[2024-12-25] MEDS: CLINDAMYCIN/NS 600 MG IVPB 600 MG/50 ML BAG 100 MG IV ×3 (05:10→21:18)
[2024-12-25] MEDS: HYDROCORTISONE SOD SUCC INJ 100 MG 2 ML VIAL 50 MG IV ×4 (05:18→23:21)
[2024-12-25 06:26] LABS: Basophils # (Auto) 0.0 Thou/mm3 (0.0-0.2); Basophils % (Auto) 0 % (0-2.5); Eosinophils # (Auto) 0.0 Thou/mm3 (0.0-0.5); Eosinophils % (Auto) 0 % (0-10); Hematocrit 32.0 % (36.0-46.0); Hemoglobin 10.1 g/dL (12.0-16.0); Immature Granulocytes Auto 1.08 Thou/mm3 (0.00-0.00); Lymphocytes # (Auto) 0.7 Thou/mm3 (1.0-4.8); Lymphocytes % (Auto) 6 % (10-50); Mean Corpuscular HGB Conc 31.6 g/dl (31.0-37.0); Mean Corpuscular Hemoglobin 25.4 pg (25.0-35.0); Mean Corpuscular Volume 81 fL (80-100); Monocytes # (Auto) 0.3 Thou/mm3 (0.0-0.8); Monocytes % (Auto) 3 % (0-12); Neutrophils # (Auto) 8.9 Thou/mm3 (1.8-7.7); Neutrophils % (Auto) 81 % (37-80); Nucleated Red Blood Cell # 0.05 Thou/mm3 (0.00-0.00); Nucleated Red Blood Cell % 1 /100 WBC (0); RDW Standard Deviation 52.2 fL (36.4-46.3); Red Blood Count 3.97 Miln/mm3 (4.00-5.20); White Blood Count 11.0 Thou/mm3 (3.6-11.0)
[2024-12-25 06:27] LABS: Platelet Count 50 Thou/mm3 (140-440)
[2024-12-25 06:39] LABS: Alanine Aminotransferase 40 U/L (10-49); Albumin, Serum 2.6 gm/dL (3.5-5.0); Albumin/Globulin Ratio 0.7 (1.2-2.2); Alkaline Phosphatase 146 U/L (46-116); Anion Gap 14 (7-16); Aspartate Amino Transferase 59 U/L (0-34); BUN/Creatinine Ratio 11 Ratio (12-20); Bilirubin,Total 1.4 mg/dL (0.3-1.2); Blood Urea Nitrogen 17 mg/dL (9-23); Calcium 8.1 mg/dL (8.3-10.6); Calcium (Corrected) 9.2 mg/dL (8.5-10.1); Carbon Dioxide 21.7 mMol/L (20.0-31.0); Chloride 98 mMol/L (98-107); Creatinine (Component) 1.5 mg/dL (0.6-1.3); Estimated Creatinine Clearance 61.1 mL/min (>60); Globulin 4.0 gm/dL (2.3-3.5); Glucose 59 mg/dL (74-106); Magnesium 2.4 mg/dL (1.6-2.6); Osmolality,Calculated 267 (275-295); Phosphorous 2.2 mg/dL (2.4-5.1); Potassium 3.5 mMol/L (3.4-5.1); Sodium 134 mMol/L (136-145); Total Protein 6.6 gm/dL (5.7-8.2); eGFR 41 See Note
[2024-12-25] MEDS: DEXTROSE 50%-WATER INJ 50 ML SYRINGE 25 ML IV ×2 (07:03→23:07)
[2024-12-25 07:07] LABS: Slide Review Platelets confirmed
[2024-12-25] MEDS: DEXTROSE 50%-WATER INJ 50 ML SYRINGE IV ×2 (09:07→14:03)
[2024-12-25] MEDS: CLOTRIMAZOLE CR 1% 30 GM TUBE TOP ×2 (09:08→20:11)
[2024-12-25] MEDS: MEROPENEM INJ 1,000 MG in SODIUM CHLORIDE 0.9% (Popper) 50 ML 100 MG IV ×3 (09:21→21:26)
[2024-12-25] MEDS: IMMUNE GLOB GA CA IV (09:22)
[2024-12-25] MEDS: PRE MIXED IV (09:22)
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
--- NOTE | 2024-12-25 10:32 | PD.RESPRO ---
Documentation for date of: 12/25/24 Subjective Subjective Interval history: Patient was seen and examined at bedside. Patient condition continued to worsen, patient was started on CRRT as her kidney function and lactic acidosis kept worsening. Lactic acid today is 8.2. Yesterday patient was intubated and now in mechanically ventilated. Regarding her A-fib that resolved and now the patient on sinus rhythm. Her platelet downtrended to 50 from 149, serum creatinine went up to 2.3, today potassium is 3.5, blood culture grew out Streptococcus pyogenes. 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 Receiving meropenem, clindamycin, IVIG. Patient is also receiving amiodarone for A-fib. Exam Vital Signs Temp Pulse Resp BP Pulse Ox O2 Del Method O2 Flow Rate 97.2 F 65 34 H 85/52 L 100 Mechanical Ventilation 10 12/25/24 08:00 12/25/24 10:30 12/25/24 06:18 12/25/24 10:30 12/25/24 10:18 12/25/24 08:00 12/24/24 11:22 FiO2 50 12/25/24 10:18 Narrative Exam GEN: Patient is intubated and sedated, CRRT running, HEENT: NC/AC,oral mucosa dry, neck supple, with androgenic hair distribution on the chin CVS: RRR, S1-S2 present however not clear due to body habitus no murmurs appreciated RESP: Decreased air entry bilaterally due to body habitus GI: soft,non distended, non tender, NBS MSK: Severe left leg swelling with severe hyperkeratotic changes. There is also oozing of yellowish serous fluid with mild erythema specially on the thigh. Right leg also has hyperkeratotic changes up to the mid espinoza of the right leg. 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 Objective Labs 12/25/24 21:08 12/25/24 18:07 Labs: Laboratory Results - last 24 hr 12/24/24 12/24/24 12/24/24 11:30 16:05 17:12 WBC RBC Hgb Hct MCV MCH MCHC RDW Std Deviation Plt Count Neut % (Auto) Lymph % (Auto) Johnston % (Auto) Eos % (Auto) Baso % (Auto) Neut # (Auto) Lymph # (Auto) Johnston # (Auto) Eos # (Auto) Baso # (Auto) Immature Gran # (Auto) Absolute Nucleated RBC Immature Gran % Nucleated RBC % PT INR APTT Fibrinogen D-Dimer Puncture Site Right Radial ABG pH 7.16 L* ABG pCO2 36 ABG pO2 127 H D ABG HCO3 13 L ABG O2 Saturation 99 H ABG Base Excess -15 L VBG pH VBG pCO2 VBG pO2 VBG O2 Sat (Tiffanie) VBG Base Excess FiO2 60 Sodium Potassium Chloride Carbon Dioxide Anion Gap BUN Creatinine Estim Creat Clear Calc eGFR BUN/Creatinine Ratio Glucose Calculated Osmolality Lactic Acid 7.0 H* 8.3 H* Calcium Corrected Calcium Phosphorus Magnesium Total Bilirubin AST ALT Alkaline Phosphatase Total Protein Albumin Globulin Albumin/Globulin Ratio Misc Test Result 12/24/24 12/24/24 12/24/24 17:19 17:29 19:45 WBC 14.4 H RBC 4.39 Hgb 11.0 L Hct 35.7 L MCV 81 MCH 25.1 MCHC 30.8 L RDW Std Deviation 52.3 H Plt Count 83 L D Neut % (Auto) 85 H Lymph % (Auto) 6 L Johnston % (Auto) 3 Eos % (Auto) 0 Baso % (Auto) 0 Neut # (Auto) 12.2 H Lymph # (Auto) 0.8 L Johnston # (Auto) 0.4 Eos # (Auto) 0.0 Baso # (Auto) 0.0 Immature Gran # (Auto) 0.93 H Absolute Nucleated RBC 0.05 H Immature Gran % 7 H Nucleated RBC % 0 PT 12.7 H INR 1.2 APTT 51.2 H Fibrinogen 545 H D-Dimer 3060 H Puncture Site Right Radial ABG pH 7.10 L* ABG pCO2 50 H D ABG pO2 249 H D ABG HCO3 15 L ABG O2 Saturation 100 H ABG Base Excess -14 L VBG pH 7.12 L VBG pCO2 42 VBG pO2 44 VBG O2 Sat (Tiffanie) 69 L VBG Base Excess -15 L FiO2 100 Sodium 130 L Potassium 4.0 Chloride 100 Carbon Dioxide 14.1 L* Anion Gap 16 BUN 17 Creatinine 2.3 H Estim Creat Clear Calc 39.5 L eGFR 24 L BUN/Creatinine Ratio 7 L Glucose 115 H Calculated Osmolality 263 L Lactic Acid 9.0 H* 8.2 H* Calcium 8.4 Corrected Calcium 9.5 Phosphorus Magnesium Total Bilirubin 1.1 AST 29 ALT 26 Alkaline Phosphatase 85 D Total Protein 6.9 Albumin 2.6 L Globulin 4.3 H Albumin/Globulin Ratio 0.6 L Misc Test Result 12/24/24 12/25/24 12/25/24 22:40 04:47 04:50 WBC 11.0 RBC 3.97 L Hgb 10.1 L Hct 32.0 L MCV 81 MCH 25.4 MCHC 31.6 RDW Std Deviation 52.2 H Plt Count 50 L D Neut % (Auto) 81 H Lymph % (Auto) 6 L Johnston % (Auto) 3 Eos % (Auto) 0 Baso % (Auto) 0 Neut # (Auto) 8.9 H Lymph # (Auto) 0.7 L Johnston # (Auto) 0.3 Eos # (Auto) 0.0 Baso # (Auto) 0.0 Immature Gran # (Auto) 1.08 H Absolute Nucleated RBC 0.05 H Immature Gran % 10 H Nucleated RBC % 1 H PT INR APTT Fibrinogen D-Dimer Puncture Site Left Radial Right Radial ABG pH 7.21 L D 7.36 D ABG pCO2 38 D 37 ABG pO2 249 H 191 H D ABG HCO3 15 L 21 ABG O2 Saturation 100 H 100 H ABG Base Excess -12 L -4 L VBG pH VBG pCO2 VBG pO2 VBG O2 Sat (Tiffanie) VBG Base Excess FiO2 21 21 Sodium 134 L Potassium 3.5 D Chloride 98 Carbon Dioxide 21.7 Anion Gap 14 BUN 17 Creatinine 1.5 H D Estim Creat Clear Calc 61.1 eGFR 41 L BUN/Creatinine Ratio 11 L Glucose 59 L D Calculated Osmolality 267 L Lactic Acid Calcium 8.1 L Corrected Calcium 9.2 Phosphorus 2.2 L Magnesium 2.4 Total Bilirubin 1.4 H AST 59 H ALT 40 Alkaline Phosphatase 146 H D Total Protein 6.6 Albumin 2.6 L Globulin 4.0 H Albumin/Globulin Ratio 0.7 L Misc Test Result Platelets confirmed ABG Interpretation ABG results: 12/22/24 12/22/24 12/23/24 16:49 23:40 13:05 ABG pH 7.39 7.29 L D ABG pCO2 33 37 ABG pO2 60 L 73 L ABG HCO3 20 18 L ABG O2 Saturation 92 94 ABG Base Excess -5 L -8 L VBG pH 7.35 VBG pCO2 37 VBG pO2 27 VBG Base Excess -5 L 12/24/24 12/24/24 12/24/24 08:54 17:12 17:19 ABG pH 7.25 L 7.16 L* ABG pCO2 34 36 ABG pO2 166 H D 127 H D ABG HCO3 15 L 13 L ABG O2 Saturation 100 H 99 H ABG Base Excess -11 L -15 L VBG pH 7.12 L VBG pCO2 42 VBG pO2 44 VBG Base Excess -15 L 12/24/24 12/24/24 12/25/24 19:45 22:40 04:47 ABG pH 7.10 L* 7.21 L D 7.36 D ABG pCO2 50 H D 38 D 37 ABG pO2 249 H D 249 H 191 H D ABG HCO3 15 L 15 L 21 ABG O2 Saturation 100 H 100 H 100 H ABG Base Excess -14 L -12 L -4 L VBG pH VBG pCO2 VBG pO2 VBG Base Excess Quality Measures Quality Measures none Assessment & Plan Assessment Current Active Medications: Generic Name Dose Route Start Last Admin Trade Name Freq PRN Reason Stop Dose Admin Acetaminophen 650 mg 12/22/24 17:09 12/23/24 10:19 Acetaminophen 325 Mg Tablet PO 01/21/25 17:08 650 mg Q6H PRN Administration Pain 1-3 and/or Fever >100.1 Hydrocodone Bitart/Acetaminophen 1 tab 12/22/24 17:09 12/23/24 19:24 Hydrocodone/Apap 10/325 Tab PO 12/27/24 17:08 1 tab Q4HR PRN Administration PAIN SCALE 7-10 (Severe Hydrocodone Bitart/Acetaminophen 1 tab 12/22/24 17:09 Hydrocodone/Apap 5/325 Tablet PO 12/27/24 17:08 Q4HR PRN PAIN SCALE 4-6 (Moderate Albuterol/Ipratropium 3 ml 12/23/24 09:36 Albuterol/Ipratropium (Duoneb) Rt Ginny 3 Ml Nebu INH 01/22/25 07:44 Q8HRRT PRN wheezing Clotrimazole 0 gm 12/23/24 09:00 12/25/24 09:08 Clotrimazole Cr 1% 30 Gm Tube TOP 01/22/25 08:59 1 applicatio BID TRACY Administration Dextrose 25 ml 12/22/24 17:09 12/25/24 07:03 Dextrose 50%-Water Inj 50 Ml Syringe IV 01/21/25 17:08 25 ml Q15MIN PRN Administration BG 50-70 responsive npo pt Dextrose 50 ml 12/22/24 17:09 12/25/24 09:07 Dextrose 50%-Water Inj 50 Ml Syringe IV 01/21/25 17:08 50 ml Q15MIN PRN Administration BG <50 OR BG <70 & pt unresponsive Glucagon 1 mg 12/22/24 17:09 Glucagon Inj 1 Mg Vial IM Q15MIN PRN BG <70, and no IV access Heparin Sodium (Porcine) 7,500 unit 12/23/24 14:00 12/25/24 06:10 Heparin Sod Inj 5000 Unit/Ml Vial SC 01/06/25 13:59 7,500 unit Q8HR TRACY Administration Hydrocortisone Sodium Succinate 50 mg 12/24/24 18:00 12/25/24 05:18 Hydrocortisone Sod Succ Inj 100 Mg 2 Ml Vial IV 01/23/25 17:59 50 mg Q6HR TRACY Administration Sodium Chloride 1,000 mls @ 150 mls/hr 12/23/24 01:00 12/23/24 06:45 Ns IV 01/22/25 00:59 0 mls/hr On Hold: 12/23/24 06:11 .Q6H40M TRACY Infusion Norepinephrine Bitartrate 16 mg in 250 mls @ 7.369 mls/hr 12/23/24 07:12 12/25/24 06:05 Levophed In Ns 16mg/250ml IV 01/22/25 07:11 0.11 mcg/kg/min .Q24H PRN 16.211 mls/hr PER protocol Titration Protocol 0.05 MCG/KG/MIN Clindamycin/Sodium Chloride 600 mg in 50 mls @ 100 mls/hr 12/23/24 09:35 12/25/24 05:10 Cleocin/Ns Ivpb IV 12/30/24 09:34 100 mls/hr Q8HR TRACY Administration Immune Globulin G/Gly/IgA 40 450 mls @ 75 mls/hr 12/25/24 10:00 12/25/24 09:22 gm/ Immune Globulin G/Gly/IgA IV 12/25/24 15:59 75 mls/hr 5 gm/ IV Miscellaneous X1 ONE Administration Supplies Vancomycin/Sodium Chloride 100 mls @ 120 mls/hr 12/24/24 22:00 12/25/24 09:46 Vancomycin/Ns 500 Mg Ivpb IV 12/31/24 21:59 120 mls/hr BID@1000,2200 TRACY Administration Propofol 1,000 mg in 100 mls @ 4.722 mls/hr 12/24/24 16:53 12/25/24 09:40 Diprivan Ivpb IV 01/23/25 16:52 10 mcg/kg/min .[id number] PRN 9.444 mls/hr Per Protocol Titration Protocol 5 MCG/KG/MIN Fentanyl Citrate 2,500 mcg in 250 mls @ 2.5 mls/hr 12/24/24 16:55 12/25/24 09:00 Sublimaze Inj 2,500 Mcg/250 Ml Bag IV 12/29/24 16:54 75 mcg/hr .Q24H PRN 7.5 mls/hr PER PROTOCOL Titration Protocol 25 MCG/HR Vasopressin/Sodium Chloride 20 unit in 100 mls @ 9 mls/hr 12/24/24 17:09 Vasostrict/Ns Ivpb IV 01/23/25 17:08 .Q11H7M PRN PER PROTOCOL Protocol 0.03 UNIT/MIN Meropenem 1,000 mg/ Sodium 50 mls @ 100 mls/hr 12/25/24 09:15 12/25/24 09:21 Chloride IV 01/01/25 09:14 100 mls/hr Q8HR TRACY Administration Insulin Human Lispro 0 unit 12/22/24 21:00 12/25/24 07:24 Insulin Lispro (Admelog) 1 Unit/0.01 Ml Unit SC 01/21/25 20:59 Not Given ACHS TRACY Protocol Ondansetron HCl 4 mg 12/22/24 17:09 Ondansetron Inj 2 Mg/Ml Inj 2 Ml IVP 01/21/25 17:08 Q6H PRN NAUSEA OR VOMITING Protocol Pharmacy Consult 1 each 12/23/24 09:00 Vancomycin Pharmacy To Dose 1 Each Each IV 01/22/25 08:59 QDAY PRN CONSULT Pharmacy Consult 1 each 12/23/24 11:15 Pharmacy Renal Dose Adjustment 1 Ea XX 01/22/25 11:14 PRN PRN CONSULT Sennosides 1 tab 12/22/24 17:09 Senna Tablet PO 01/21/25 17:08 QDAY PRN constipation Protocol Plan Summary:A 54-year-old female patient with past medical history of insulin-dependent diabetes mellitus, bilateral lower limb lymphedema, lipedema, asthma, epilepsy, morbid obesity, wheelchair-bound for 9 years, was brought to the ED on 22 December due to left lower extremity pain and clear cirrhosis fluid oozing. Patient was admitted to the ICU for distributive shock. Cardiology team was consulted because of new onset A-fib with RVR and newly diagnosed CHF. Assessment and plan #Newly diagnosed heart failure #A-fib with RVR #Streptococcus bacteremia Patient presented with sepsis secondary to left leg cellulitis, her condition worsened to distributive shock. During her stay she developed A-fib with RVR we started the patient on amiodarone drip. Even though her body habitus echo was done and showed ejection fraction of 40 to 45%. With normal RV function. BNP was 204 which most likely skewed by patient obesity. Troponin was negative. 12/25/2024 patient was started on CRRT due to worsening lactic acidosis and kidney function, blood culture growing Streptococcus pyogenes. Echo was of low Visibility due to body habitus. Plan ?Can start the patient on amiodarone 1 mg/h if her A-fib continue to be persistent. ? Due to patient condition no invasive cardiac procedure will be done at this time ? Continue the patient on amiodarone drip and can transition to amiodarone p.o. 200 mg if patient tolerate oral feed. ? Strict in and out ? Keep potassium and magnesium above 4 and 2 respectively within normal range ? Will start the patient on GDMT as soon as her general condition improved #Distributive shock most likely secondary to sepsis #Sepsis secondary to left leg cellulitis #Toxic shock syndrome #Lower extremity lymphedema Plan ? Patient was started on Clindamycin, meropenem by the primary team, patient was also given IgG immunoglobulin ? Patient on norepinephrine drip and vasopressin for distributive shock #History of seizure disorder Patient on antiseizure meds #Concern of DIC #History of COPD Supplemental oxygen, BiPAP as needed, DuoNebs #Elevated bilirubin, elevated AST, hypoalbuminemia Secondary to toxic shock syndrome versus septic shock Follow primary team recommendations #Lactic acidosis #YOU #Non-anion gap metabolic acidosis Lactic acid was 6 downtrended to 5.6 Thank you for your consultation, please do not hesitate to reach out if you have any question or concern - Patient's plan and care discussed with my attending, Dr. Chapa_ Cary Fuller MD Internal Medicine PGY-3 Attending Provider Attestation/Addendum I have personally seen and examined the patient separately on the above date of service and discussed the plan of care with the resident. I reviewed the resident consultation progress note and agree with the resident findings and plan in the note above and have also edited the documentation to reflect my findings and plan. Alex Chapa M.D. Interventional Cardiology
--- NOTE | 2024-12-25 10:35 | PC.NURSE ---
at 0730, TABLO alarm venous pressure high, line checked, tablo resumed, tablo alarm to check for air bubbles, air bubbles seen in cartridge, blood discarded and cartridge replaced, Dr. Casillas notified, at 1030, per dr casillas at bedside no new orders at this time
--- NOTE | 2024-12-25 10:58 | PC.SS ---
SS update: bedside nurse Mayra stated that patient is on IV antibiotics, is intubated, sedated and on pressure, no tube feeds.
--- NOTE | 2024-12-25 11:28 | ESPR_ITS ---
Documentation for date of: 12/25/24 Subjective Subjective Interval history: 54-year-old female with past medical history of prior DE?, Insulin-dependent type 2 diabetes, lymphedema, lipedema, asthma, epilepsy, morbid obesity, nonambulatory for 9 years, wheelchair-bound presenting to the ED on 12/22 with left lower extremity pain and oozing. Patient states that about 3 weeks ago she slammed her left leg on a brick wall and ever since that time her left leg has progressively worsened and started oozing. Patient lives at home and is largely immobile and requires liability analyst in the form of her grandson who takes care of her. Patient has not been seen by outpatient wound care as she says her motorized wheelchair has been broken. Patient also states that she has had a heart attack in the past but has never followed up with cardiology. Patient also has asthma but she denies having any shortness of breath at this time, uses albuterol twice a week. Medical history: As stated above Surgical history: Denies Allergies: Aspirin, codeine, Keppra, morphine, penicillin causes dyspnea Medications: Pending med rec Family history: Patient's mother and grandmother from breast cancer, denies having any family history of heart attack or stroke Social history: Patient lives at home, grandson liability analyst, denies any alcohol, tobacco or illicit drug use ROS: All 12 systems assessed and the patient denies unless otherwise stated in HPI In the ED, patient presented mildly hypotensive 92/56, heart rate of 92, respiratory rate of 18, afebrile satting 96 on room air. Pertinent lab findings include WBC of 5.8, potassium 3.1, creatinine 1.8, eGFR of 33, lactic acid initially 7.1 uptrending to 8.0, T. bili of 2.2, AST 21, ALT 14, BNP of 385, Pro-Umberto of 87. Urinalysis shows signs of urinary tract infection. Venous Doppler study is negative for DVT, chest x-ray does not show any active disease and tibia/fibula x-ray shows no acute fracture. Patient was admitted to floors for sepsis secondary to cellulitis . At midnight BOX ICER was called due to hypotension, despite aggressive fluid resuscitation patient was remained persistent hypotensive, however nursing staff was having a hard time to obtain accurate measurement due to body habitus. Repeat labs did revealed lactic acidosis which did not improved even after 5 L of fluids, Cheetah monitor was placed, patient found to be not fluid responsive. At this point decision was made to upgrade patient to ICU for pressor support. Interval History 12/23/24: Overnight patient had no further events. Input 5 L, output 0. This a.m. IV access infusing norepinephrine extravasated and was removed. Patient complains of mild SOB at rest and also 9/10 constant left leg pain. Labs showed Hb 12.2, PLT 149, BUN 14, CR 2, glucose 84. Lactic acid down trended to 5.6 from 6, Mg 1.5, CK 515, T. bili 2. PTT 33.7, PT 16.7, INR 1.6, fibrinogen 560, D-dimer 3780. Blood cultures growing GPC preliminary. CT of the lower leg showed extensive lymphedema with cellulitis. No signs of osteomyelitis or necrotizing fasciitis. Repleted with magnesium sulfate 4 g IV x 1. Started on clindamycin, renally dosed for toxic shock syndrome. Phentolamine SC was administered for extravasation of norepinephrine. RIJ CVC was placed for norepinephrine administration. DuoNebs were placed as needed. Patient was also started on IV Ig and prothrombin complex concentrate for toxic shock syndrome and likely DIC. 12/24/24: Overnight patient went into SVT with highest rate being 221. EKG showed A-fib with RVR rate 141. Patient was started on amiodarone infusion as per cardiology recommendations. Heart rate improved to 80s/110s overnight. Patient was examined at bedside; she seems to be in some distress with tachypnea and labored breathing noted (later put on BiPAP). The cellulitis and lesions 2/2 extravasation of Levophed seem unchanged from yesterday. Her YOU seems to be improving due to an increased urine output of 460 mL last night whereas the day before she was mostly anuric. Based on urine labs showing random creatinine 203, random sodium 21.1, random potassium 68, and random chloride 29.0, the most likely cause of the YOU is renal hypoperfusion 2/2 toxic shock syndrome. Blood cultures grew Streptococcus pyogenes, reaffirming that patient's current hypotension and other symptoms are 2/2 toxic shock syndrome from the above organism which may have originated from patient's cellulitis. Patient's lactic acid continues to trend upwards from 5.1 to 5.4 and now is 6.0 at the time of writing this note (11:30). Other pertinent labs include sodium drop to 134 from 136, magnesium bump to 3.3 from 1.5, creatinine bump to 2.2 from 2.1, PT bump to 12.3 from 12.1, INR 1.1, APTT bump to 45.8 from 30.5, fibrinogen drop to 506 from 560, total bilirubin drop to 1.4 from 2.1, and CK drop to 251 from 450. Current plan is to dampen the cytokine storm from toxic shock syndrome by giving IVIG (to be dosed by pharmacy), switch IV cefepime to IV meropenem in her antibiotic regimen, and continue pressor support to maintain MAP > 65 (patient does not seem fluid-responsive). 12/25/24: No overnight events. Patient was examined at bedside; she is intubated now and exhibiting many concerning findings on physical exam including further spread of induration at the left thigh, formation of new bullae just distal and lateral of the left knee, as well as increasingly necrotic / black appearance of the ulcerated area on the lateral left lower extremity and black lesions on the 2nd and 4th toes of the left foot. Pertinent labs today include hemoglobin now 10.1 from 11.0, platelet count now 50 from 83, creatinine now 1.5 from 2.3, blood glucose 59, lactic acid now 8.3 from 8.2, phosphorus 2.2 from 3.6, total bilirubin now 1.4 from 1.1, AST now 59 from 29, ALT now 40 from 26, and alkaline phosphatase now 146 from 85. In terms of changes to management, patient's IV vancomycin will be stopped (MRSA screen came back negative), patient will be started trickle feed @ 10 mL/hr, IV Protonix 40 mg qD will be started for GI prophylaxis due to patient's new intubated status, and she will have an arterial line inserted today for effective monitoring of patient ABG's. She will be continued on IV meropenem and clindamycin as well as given her last of 3 doses of IVIG to treat her ongoing toxic shock syndrome. Due to continued need for intubation and pressors, patient continues to meet criteria for ICU-level management. Exam Vital Signs Temp Pulse Resp BP Pulse Ox O2 Del Method O2 Flow Rate 97.2 F 62 34 H 92/59 L 100 Mechanical Ventilation 10 12/25/24 08:00 12/25/24 11:15 12/25/24 06:18 12/25/24 11:15 12/25/24 11:00 12/25/24 08:00 12/24/24 11:22 FiO2 50 12/25/24 10:18 Narrative Exam General: Extremely morbidly obese female. A/O x 3 in some distress. Head: Normocephalic, atraumatic. Eyes: EOMI. Anicteric, vision grossly intact. Ears: No ear pain, no ear discharge, Hearing grossly intact. Nose: No nasal discharge. Mouth/Throat: Facial hair bilaterally noted on the chin but not at center of chin (female hirsutism). Poor dentition. Oral mucosa dry. No obvious lesions in oropharynx. Cardiovascular: Difficult to auscultate due to body habitus but seemingly normal rate and normal rhythm, no murmur, no JVD or carotid bruits. +S1/S2. Respiratory: Now intubated. Difficult to auscultate due to body habitus but anterior lung mccallum seemingly clear to auscultation without wheezing or crackles appreciated. Tachypneic and labored breathing. No accessory muscle use. Gastrointestinal: Soft, nontender, obese, no palpable masses. No guarding or rebound tenderness. Difficult to appreciate bowel sounds due to body habitus. Extremities: Massive bilateral lymphedema that is significantly worse at left leg. Large area of wrinkly, rough, induration most prominent at left medial thigh that spreads to all areas distally (and has clearly spread further from yesterday), while right leg also has areas like these as well distributed all across right espinoza and areas distal to the right espinoza. Black eschars noted at left medial thigh and at 2nd and 4th toes on left foot (worsening) with large patch of ulceration / desquamation on anterolateral left espinoza (that is now turning black). Significant lichenification of left foot most dense at the base of the 3rd toe and dorsolaterally. Lichenification of right foot as well. Blood seeping out from left hallux toenail (mostly dried), significant hyperkeratinization and elevation of toenails, especially left 3rd toenail and right hallux toenail. Ecchymosis of right proximal upper extremity, and red- purple ecchymosis of right antecubital fossa that is unchanged from yesterday. Dusky fingertips of right hand with mottling noticed on hands bilaterally. Objective Labs 12/25/24 12:23 12/25/24 12:23 Labs: Laboratory Results - last 24 hr 12/24/24 12/24/24 12/24/24 11:30 16:05 17:12 WBC RBC Hgb Hct MCV MCH MCHC RDW Std Deviation Plt Count Neut % (Auto) Lymph % (Auto) [place] % (Auto) Eos % (Auto) Baso % (Auto) Neut # (Auto) Lymph # (Auto) [place] # (Auto) Eos # (Auto) Baso # (Auto) Immature Gran # (Auto) Absolute Nucleated RBC Immature Gran % Nucleated RBC % PT INR APTT Fibrinogen D-Dimer Puncture Site Right Radial ABG pH 7.16 L* ABG pCO2 36 ABG pO2 127 H D ABG HCO3 13 L ABG O2 Saturation 99 H ABG Base Excess -15 L VBG pH VBG pCO2 VBG pO2 VBG O2 Sat (Tiffanie) VBG Base Excess FiO2 60 Sodium Potassium Chloride Carbon Dioxide Anion Gap BUN Creatinine Estim Creat Clear Calc eGFR BUN/Creatinine Ratio Glucose Calculated Osmolality Lactic Acid 7.0 H* 8.3 H* Calcium Corrected Calcium Phosphorus Magnesium Total Bilirubin AST ALT Alkaline Phosphatase Total Protein Albumin Globulin Albumin/Globulin Ratio Misc Test Result 12/24/24 12/24/24 12/24/24 17:19 17:29 19:45 WBC 14.4 H RBC 4.39 Hgb 11.0 L Hct 35.7 L MCV 81 MCH 25.1 MCHC 30.8 L RDW Std Deviation 52.3 H Plt Count 83 L D Neut % (Auto) 85 H Lymph % (Auto) 6 L [place] % (Auto) 3 Eos % (Auto) 0 Baso % (Auto) 0 Neut # (Auto) 12.2 H Lymph # (Auto) 0.8 L [place] # (Auto) 0.4 Eos # (Auto) 0.0 Baso # (Auto) 0.0 Immature Gran # (Auto) 0.93 H Absolute Nucleated RBC 0.05 H Immature Gran % 7 H Nucleated RBC % 0 PT 12.7 H INR 1.2 APTT 51.2 H Fibrinogen 545 H D-Dimer 3060 H Puncture Site Right Radial ABG pH 7.10 L* ABG pCO2 50 H D ABG pO2 249 H D ABG HCO3 15 L ABG O2 Saturation 100 H ABG Base Excess -14 L VBG pH 7.12 L VBG pCO2 42 VBG pO2 44 VBG O2 Sat (Tiffanie) 69 L VBG Base Excess -15 L FiO2 100 Sodium 130 L Potassium 4.0 Chloride 100 Carbon Dioxide 14.1 L* Anion Gap 16 BUN 17 Creatinine 2.3 H Estim Creat Clear Calc 39.5 L eGFR 24 L BUN/Creatinine Ratio 7 L Glucose 115 H Calculated Osmolality 263 L Lactic Acid 9.0 H* 8.2 H* Calcium 8.4 Corrected Calcium 9.5 Phosphorus Magnesium Total Bilirubin 1.1 AST 29 ALT 26 Alkaline Phosphatase 85 D Total Protein 6.9 Albumin 2.6 L Globulin 4.3 H Albumin/Globulin Ratio 0.6 L Misc Test Result 12/24/24 12/25/24 12/25/24 22:40 04:47 04:50 WBC 11.0 RBC 3.97 L Hgb 10.1 L Hct 32.0 L MCV 81 MCH 25.4 MCHC 31.6 RDW Std Deviation 52.2 H Plt Count 50 L D Neut % (Auto) 81 H Lymph % (Auto) 6 L [place] % (Auto) 3 Eos % (Auto) 0 Baso % (Auto) 0 Neut # (Auto) 8.9 H Lymph # (Auto) 0.7 L [place] # (Auto) 0.3 Eos # (Auto) 0.0 Baso # (Auto) 0.0 Immature Gran # (Auto) 1.08 H Absolute Nucleated RBC 0.05 H Immature Gran % 10 H Nucleated RBC % 1 H PT INR APTT Fibrinogen D-Dimer Puncture Site Left Radial Right Radial ABG pH 7.21 L D 7.36 D ABG pCO2 38 D 37 ABG pO2 249 H 191 H D ABG HCO3 15 L 21 ABG O2 Saturation 100 H 100 H ABG Base Excess -12 L -4 L VBG pH VBG pCO2 VBG pO2 VBG O2 Sat (Tiffanie) VBG Base Excess FiO2 21 21 Sodium 134 L Potassium 3.5 D Chloride 98 Carbon Dioxide 21.7 Anion Gap 14 BUN 17 Creatinine 1.5 H D Estim Creat Clear Calc 61.1 eGFR 41 L BUN/Creatinine Ratio 11 L Glucose 59 L D Calculated Osmolality 267 L Lactic Acid Calcium 8.1 L Corrected Calcium 9.2 Phosphorus 2.2 L Magnesium 2.4 Total Bilirubin 1.4 H AST 59 H ALT 40 Alkaline Phosphatase 146 H D Total Protein 6.6 Albumin 2.6 L Globulin 4.0 H Albumin/Globulin Ratio 0.7 L Misc Test Result Platelets confirmed ABG Interpretation ABG results: 12/22/24 12/22/24 12/23/24 16:49 23:40 13:05 ABG pH 7.39 7.29 L D ABG pCO2 33 37 ABG pO2 60 L 73 L ABG HCO3 20 18 L ABG O2 Saturation 92 94 ABG Base Excess -5 L -8 L VBG pH 7.35 VBG pCO2 37 VBG pO2 27 VBG Base Excess -5 L 12/24/24 12/24/24 12/24/24 08:54 17:12 17:19 ABG pH 7.25 L 7.16 L* ABG pCO2 34 36 ABG pO2 166 H D 127 H D ABG HCO3 15 L 13 L ABG O2 Saturation 100 H 99 H ABG Base Excess -11 L -15 L VBG pH 7.12 L VBG pCO2 42 VBG pO2 44 VBG Base Excess -15 L 12/24/24 12/24/24 12/25/24 19:45 22:40 04:47 ABG pH 7.10 L* 7.21 L D 7.36 D ABG pCO2 50 H D 38 D 37 ABG pO2 249 H D 249 H 191 H D ABG HCO3 15 L 15 L 21 ABG O2 Saturation 100 H 100 H 100 H ABG Base Excess -14 L -12 L -4 L VBG pH VBG pCO2 VBG pO2 VBG Base Excess Quality Measures Quality Measures none Assessment & Plan Assessment Current Active Medications: Generic Name Dose Route Start Last Admin Trade Name Freq PRN Reason Stop Dose Admin Acetaminophen 650 mg 12/22/24 17:09 12/23/24 10:19 Acetaminophen 325 Mg Tablet PO 01/21/25 17:08 650 mg Q6H PRN Administration Pain 1-3 and/or Fever >100.1 Hydrocodone Bitart/Acetaminophen 1 tab 12/22/24 17:09 12/23/24 19:24 Hydrocodone/Apap 10/325 Tab PO 12/27/24 17:08 1 tab Q4HR PRN Administration PAIN SCALE 7-10 (Severe Hydrocodone Bitart/Acetaminophen 1 tab 12/22/24 17:09 Hydrocodone/Apap 5/325 Tablet PO 12/27/24 17:08 Q4HR PRN PAIN SCALE 4-6 (Moderate Albuterol/Ipratropium 3 ml 12/23/24 09:36 Albuterol/Ipratropium (Duoneb) Rt Ginny 3 Ml Nebu INH 01/22/25 07:44 Q8HRRT PRN wheezing Clotrimazole 0 gm 12/23/24 09:00 12/25/24 09:08 Clotrimazole Cr 1% 30 Gm Tube TOP 01/22/25 08:59 1 applicatio BID TRACY Administration Dextrose 25 ml 12/22/24 17:09 12/25/24 07:03 Dextrose 50%-Water Inj 50 Ml Syringe IV 01/21/25 17:08 25 ml Q15MIN PRN Administration BG 50-70 responsive npo pt Dextrose 50 ml 12/22/24 17:09 12/25/24 09:07 Dextrose 50%-Water Inj 50 Ml Syringe IV 01/21/25 17:08 50 ml Q15MIN PRN Administration BG <50 OR BG <70 & pt unresponsive Glucagon 1 mg 12/22/24 17:09 Glucagon Inj 1 Mg Vial IM Q15MIN PRN BG <70, and no IV access Heparin Sodium (Porcine) 7,500 unit 12/23/24 14:00 12/25/24 06:10 Heparin Sod Inj 5000 Unit/Ml Vial SC 01/06/25 13:59 7,500 unit Q8HR TRACY Administration Hydrocortisone Sodium Succinate 50 mg 12/24/24 18:00 12/25/24 05:18 Hydrocortisone Sod Succ Inj 100 Mg 2 Ml Vial IV 01/23/25 17:59 50 mg Q6HR TRACY Administration Sodium Chloride 1,000 mls @ 150 mls/hr 12/23/24 01:00 12/23/24 06:45 Ns IV 01/22/25 00:59 0 mls/hr On Hold: 12/23/24 06:11 .Q6H40M TRACY Infusion Norepinephrine Bitartrate 16 mg in 250 mls @ 7.369 mls/hr 12/23/24 07:12 12/25/24 10:00 Levophed In Ns 16mg/250ml IV 01/22/25 07:11 0.09 mcg/kg/min .Q24H PRN 13.264 mls/hr PER protocol Titration Protocol 0.05 MCG/KG/MIN Clindamycin/Sodium Chloride 600 mg in 50 mls @ 100 mls/hr 12/23/24 09:35 12/25/24 09:21 Cleocin/Ns Ivpb IV 12/30/24 09:34 Infused Q8HR TRACY Infusion Immune Globulin G/Gly/IgA 40 450 mls @ 75 mls/hr 12/25/24 10:00 12/25/24 09:22 gm/ Immune Globulin G/Gly/IgA IV 12/25/24 15:59 75 mls/hr 5 gm/ IV Miscellaneous X1 ONE Administration Supplies Propofol 1,000 mg in 100 mls @ 4.722 mls/hr 12/24/24 16:53 12/25/24 10:36 Diprivan Ivpb IV 01/23/25 16:52 5 mcg/kg/min .[id number] PRN 4.722 mls/hr Per Protocol Titration Protocol 5 MCG/KG/MIN Fentanyl Citrate 2,500 mcg in 250 mls @ 2.5 mls/hr 12/24/24 16:55 12/25/24 11:14 Sublimaze Inj 2,500 Mcg/250 Ml Bag IV 12/29/24 16:54 125 mcg/hr .Q24H PRN 12.5 mls/hr PER PROTOCOL Titration Protocol 25 MCG/HR Vasopressin/Sodium Chloride 20 unit in 100 mls @ 9 mls/hr 12/24/24 17:09 Vasostrict/Ns Ivpb IV 01/23/25 17:08 .Q11H7M PRN PER PROTOCOL Protocol 0.03 UNIT/MIN Meropenem 1,000 mg/ Sodium 50 mls @ 100 mls/hr 12/25/24 09:15 12/25/24 09:46 Chloride IV 01/01/25 09:14 0 mls/hr Q8HR TRACY Infusion Insulin Human Lispro 0 unit 12/22/24 21:00 12/25/24 11:26 Insulin Lispro (Admelog) 1 Unit/0.01 Ml Unit SC 01/21/25 20:59 Not Given ACHS TRACY Protocol Ondansetron HCl 4 mg 12/22/24 17:09 Ondansetron Inj 2 Mg/Ml Inj 2 Ml IVP 01/21/25 17:08 Q6H PRN NAUSEA OR VOMITING Protocol Pantoprazole Sodium 40 mg 12/25/24 11:15 Pantoprazole Inj 40 Mg Vial IVP 01/24/25 11:14 QDAY [facility] Pharmacy Consult 1 each 12/23/24 11:15 Pharmacy Renal Dose Adjustment 1 Ea XX 01/22/25 11:14 PRN PRN CONSULT Sennosides 1 tab 12/22/24 17:09 Senna Tablet PO 01/21/25 17:08 QDAY PRN constipation Protocol Plan 54-year-old female with past medical history of prior DE?, Insulin-dependent type 2 diabetes, lymphedema, lipedema, asthma, epilepsy, morbid obesity, nonambulatory for 9 years, wheelchair-bound presenting to the ED on 12/22 with left lower extremity pain and oozing. No overnight events. Patient was examined at bedside; she is intubated now and exhibiting many concerning findings on physical exam including further spread of induration at the left thigh, formation of new bullae just distal and lateral of the left knee, as well as increasingly necrotic / black appearance of the ulcerated area on the lateral left lower extremity and black lesions on the 2nd and 4th toes of the left foot. Pertinent labs today include hemoglobin now 10.1 from 11.0, platelet count now 50 from 83, creatinine now 1.5 from 2.3, blood glucose 59, lactic acid now 8.3 from 8.2, phosphorus 2.2 from 3.6, total bilirubin now 1.4 from 1.1, AST now 59 from 29, ALT now 40 from 26, and alkaline phosphatase now 146 from 85. In terms of changes to management, patient's IV vancomycin will be stopped (MRSA screen came back negative), patient will be started trickle feed @ 10 mL/hr, IV Protonix 40 mg qD will be started for GI prophylaxis due to patient's new intubated status, and she will have an arterial line inserted today for effective monitoring of patient ABG's. She will be continued on IV meropenem and clindamycin as well as given her last of 3 doses of IVIG to treat her ongoing toxic shock syndrome. Due to continued need for intubation and pressors, patient continues to meet criteria for ICU-level management. Neuro #Seizure disorder Rx: -Continue patient's home medications Cardiovascular #Distributive shock 2/2 toxic shock syndrome Patient had initially received 5 L of IV fluid for resuscitation but hypotension remained refractory. She was then started on Levophed through a peripheral IV but this led to extravasation and phentolamine had to be infused around the site. Cardiogenic etiology less likely due to bedside echocardiogram showed seemingly adequate contractility without large pericardial effusion. Obstructive etiology less likely due to absence of pneumothorax or PE. Hypovolemic etiology less likely due to receiving adequate fluid infusion without source of active bleeding. Favored etiology of primary contribution is distributive shock 2/2 toxic shock syndrome (due to drop in platelets, YOU, and other labs suggesting some level of DIC) DDx: TTP Dx: -12/22 BCx (04/01) grew zaman-sensitive Streptococcus pyogenes (Group A Streptococcus) -12/22 echocardiogram showed reduced EF of 45% Rx: -IVIG was given yesterday, will give again today (last day, 3 doses total) -Antibiotic regimen as detailed in ID section -Monitor hemodynamics and titrate pressor support as appropriate to maintain MAP > 65 RRx: -Patient's pressor support needs are increased from yesterday and she is neither volume responsive nor able to clear her lactic acid #??HFrEF DDx: septic cardiomyopathy, ischemic cardiomyopathy Dx: -12/22 echocardiogram showed reduced EF of 45% Rx: -Further evaluation in the outpatient setting #Atrial fibrillation, paroxysmal Patient has been having atrial fibrillation w/ RVR throughout her stint in the ICU but converted to sinus rhythm (HR 80-90) beginning this morning Completed amiodarone infusion Respiratory #Acute respiratory failure w/ hypoxia 2/2 metabolic acidosis requiring intubation and mechanical ventilation Dx: -ABG before intubation -> ABG most recently : pH 7.16 -> 7.36, pCO2 36 -> 37 -Sputum culture pending -ACVC, Tidal Volume = 430, RR = 33, FiO2 50%, PEEP = 12 Rx: -Continue intubation and mechanical ventilation (not fit for SBT) -Installed arterial line for frequent monitoring of blood gases and blood pressure -Started IV Protonix 40 mg qD for GI prophylaxis due to patient's intubated status RRx: -Follow up on repeat ABG at 4 PM, adjust ventilator settings accordingly Renal #YOU, likely 2/2 acute tubular necrosis 2/2 renal hypoperfusion Creatinine initially elevated upon admission at 1.8 and had slowly up-trended Baseline creatinine used to be WNL but last lab was from a few years ago However, patient was noted to have almost no UOP for days despite adequate fluid resuscitation, suggesting YOU 2/2 ATN 2/2 renal hypoperfusion Dx: -Creatinine 1.2 today (in the setting of CRRT, patient's UOP yesterday night was 310, difficult to assess ongoing improvement of YOU or not) Rx: -CRRT as needed per Nephrology recommendations -Strict I's & O's -Avoid nephrotoxins #Anion gap metabolic acidosis Likely etiology is lactic acidosis from ongoing hypoperfusion 2/2 toxic shock syndrome and YOU Dx: -Calculated anion gap after correcting for albumin was 21.5, indicating there has been a drop in the patient's bicarbonate levels -Bicarbonate improved to 21.7 from 14.1 yesterday Rx: -Treat underlying cause (toxic shock syndrome) -Patient has arterial line in place for frequent ABG monitoring GI #Transaminitis In the setting of ongoing toxic shock syndrome Dx: -AST now 59 from 29 yesterday -ALT now 40 from 26 yesterday Endocrine #T2DM Rx: -D10 stopped yesterday, started on tube feeds @ 10 mL / hr and 30 mL/hr flushes -SF Prostat 30 mL BID -Blood sugar check q1HR Heme #Thrombocytopenia Likely 2/2 sepsis Dx: -Platelet count down to 50 from 83 yesterday Rx: -Continue to monitor CBC and for signs of active bleeding -Transfuse platelets if platelets less than 50 with active bleeding or less than 15 RRx: -Thrombocytopenia seems to be worsening #Coagulopathy Dx: -Elevated INR, elevated D-Dimer, and elevated fibrinogen suggestive of low level DIC #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 necrotizing cellulitis of the lesion at the left lower extremity s/p KCentra 5,000 U x 1 on 12/23/24 (protein C unavailable) ID #Cellulitis #Streptococcus pyogenes bacteremia Likely source of sepsis and precipitating toxic shock syndrome Dx: -12/22 BCx (04/01) grew zaman-sensitive Streptococcus pyogenes (Group A Streptococcus) Rx: -Currently on meropenem and clindamycin (vancomycin was discontinued today due to negative MRSA screen) RRx: -Cellulitis seems worsened today as compared to yesterday #UTI Dx: -UA suggestive of infection -UCx came back NGTD Disposition: Patient continues to meet criteria for ongoing ICU management due to continued need for pressors, possible need for intubation, and 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 DVT prophylaxis: Heparin 7500 q8HR GI prophylaxis: IV Protonix 40 mg qD Diet: Tube Feeds @ 10 mL / hr Pitts: Present Lines: Peripheral IV, Central IV, arterial line Antibiotics: IV meropenem and clindamycin CODE STATUS: FULL Patient plan of care was discussed with the attending bladder changer, Dr. Zion Dykes, DO Internal Medicine, PGY-1
--- NOTE | 2024-12-25 12:00 | ESOP_ITS ---
PROCEDURES: Procedure Date / Time 12/25/24 1329 Procedure Narrative Procedure Narrative: INDICATION: Frequent Blood Gas, Blood pressure Monitoring PROCEDURE ROLL FORMING SUPERVISOR: Dr. Verduzco ATTENDING PHYSICIAN: Dr. Donovan CONSENT: During the informed consent discussion regarding the procedure, or treatment, I explained the following to the designee: a. Nature of the procedure or treatment and who will perform the procedure or treatment. b. Necessity for procedure and the possible benefits. c. Risks and complications (most common and serious). d. Alternative treatments and the risks, benefits and side effects of each (including no treatment). e. Likelihood of the patient achieving his/her goals without this procedure and surgery treatment. f. Problems that might occur during the recuperation. g. Conflicts of interest, if any PROCEDURE SUMMARY: A time out was performed. My hands were washed immediately prior to the procedure. I wore a surgical cap, mask with protective eyewear, sterile gown and sterile gloves throughout the procedure. After an Bg test was performed to ensure adequate perfusion, the L wrist was prepped using chlorhexidine scrub and draped in sterile fashion using a three quarter sheet drape and sterile towels. The radial pulse was identified and the wrist was positioned in the usual fashion. Anesthesia was achieved using 1% lidocaine. Using the Arrow Radial Arterial Line Kit, a needle was inserted into the radial artery. Arterial blood was seen to pulsate in the flash chamber. The internal guidewire was advanced easily into the radial artery. The catheter was then advanced over the wire and the needle and wire were withdrawn. A sterile opsite was placed over the catheter at the insertion site. The patient tolerated the procedure without any hemodynamic compromise. At the time of procedure completion, the catheter was connected to the rn cardiac cath and calibrated. Appropriate waveform and blood pressure tracing was observed. Estimated blood loss is 3cc. Procedure supervised by my attending Dr. Donovan ? Michael Verduzco MD PGY 2
[2024-12-25] MEDS: HEPARIN SOD INJ 1000 UNIT/ML VIAL 10 ML 100 UNIT INDWELLCAT ×12 (12:01→23:03)
--- NOTE | 2024-12-25 12:48 | PD.INTPROG ---
Documentation for date of: 12/25/24 Subjective Subjective Interval history: This is a 54yo F admitted to the hospital yesterday for general malaise and LLE pain. Apparently 3 weeks ago the patient was in her motorized wheelchair when she had a accident. She had a brick wall and injured her left lower extremity. The patient does suffer from morbid obesity as well as significant bilateral lower extremity lymphedema. She developed a shallow ulceration measuring perhaps 7 to 8 cm on the lateral aspect of her distal left lower extremity. She has been trying to clean and care for the wound however finds it difficult due to her body habitus. She states that her dog has also been licking the wound. Yesterday she began with significant severe pain in her left leg and decided to come to the hospital. At time of arrival to the ER she was noted to be hypotensive and given IV fluids. She was admitted to the floor with a diagnosis of cellulitis and started on antibiotics. Overnight the patient was hypotensive once more requiring additional volume. She became nonresponsive to fluids and given that her blood pressure was still low decision was made to upgrade the patient to the ICU. She received a total of 5 L of IV fluids. She was started on Levophed through a peripheral IV. The IV located in her right forearm infiltrated with the Levophed. There is an area of nonblanching pale skin and a circumferential area around where the IV was. This morning she complains of some general malaise with generalized aches and pains however mostly localizes her discomfort to her left lower extremity. Complains of mild shortness of breath but no cough. She has had minimal urinary output since arrival. She is currently afebrile. 12/24- overnight pt had improvement in her UOP with 30-50cc/hr, afebrile, appears ill, altered this morning, tachypneic, overnight developed afib and started on amio, remains not fluid responsive this AM 12/25-yesterday evening patient continued decline eventually required intubation. She had a significant metabolic as well as respiratory acidosis. Several vent adjustments were made. She had a dialysis catheter placed on the left and was started on CRRT. She also underwent a repeat CT of the abdomen pelvis as well as left lower extremity looking for abscess or gas given her increasing lactate. Critical Care Note Critical care time (min.): 65 Exam Vital Signs Temp Pulse Resp BP Pulse Ox O2 Del Method O2 Flow Rate 97.2 F 66 34 H 98/64 100 Mechanical Ventilation 10 12/25/24 08:00 12/25/24 12:30 12/25/24 06:18 12/25/24 12:30 12/25/24 12:30 12/25/24 08:00 12/24/24 11:22 FiO2 50 12/25/24 10:18 Narrative Exam General-intubated, sedated, ill-appearing, super morbidly obese HEENT-normocephalic, atraumatic, sclera anicteric, pupils equal reactive, oral mucosa is dry, ET tube in place, OG tube in place Chest-lungs clear to auscultation bilaterally, heart regular rhythmic, no bridge murmurs auscultated times exam Abdomen-obese, soft, bowel sounds very diminished, no obvious palpable masses Extremities-dusky discoloration of bilateral upper extremity digits, 2nd and 4th toe on the left foot with clearly demarcated areas of ischemia, purpuric lesion on left lower extremity which is extended from distal leg to upper thigh anterior and posterior, some mottling on the right lower extremity, significant bilateral lymphedema with chronic skin changes, left shallow ulceration on the distal leg Drips Levophed Amio Vent AC/VC Physical Exam Completion Physical Exam Complete?: Yes 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 Labs 12/25/24 04:50 12/25/24 04:50 Labs: Laboratory Results - last 24 hr 12/24/24 12/24/24 12/24/24 16:05 17:12 17:19 WBC RBC Hgb Hct MCV MCH MCHC RDW Std Deviation Plt Count Neut % (Auto) Lymph % (Auto) [place] % (Auto) Eos % (Auto) Baso % (Auto) Neut # (Auto) Lymph # (Auto) [place] # (Auto) Eos # (Auto) Baso # (Auto) Immature Gran # (Auto) Absolute Nucleated RBC Immature Gran % Nucleated RBC % PT 12.7 H INR 1.2 APTT 51.2 H Fibrinogen 545 H D-Dimer 3060 H Puncture Site Right Radial ABG pH 7.16 L* ABG pCO2 36 ABG pO2 127 H D ABG HCO3 13 L ABG O2 Saturation 99 H ABG Base Excess -15 L VBG pH 7.12 L VBG pCO2 42 VBG pO2 44 VBG O2 Sat (Tiffanie) 69 L VBG Base Excess -15 L FiO2 60 Sodium Potassium Chloride Carbon Dioxide Anion Gap BUN Creatinine Estim Creat Clear Calc eGFR BUN/Creatinine Ratio Glucose Calculated Osmolality Lactic Acid 8.3 H* 9.0 H* Calcium Corrected Calcium Phosphorus Magnesium Total Bilirubin AST ALT Alkaline Phosphatase Total Protein Albumin Globulin Albumin/Globulin Ratio Misc Test Result 12/24/24 12/24/24 12/24/24 17:29 19:45 22:40 WBC 14.4 H RBC 4.39 Hgb 11.0 L Hct 35.7 L MCV 81 MCH 25.1 MCHC 30.8 L RDW Std Deviation 52.3 H Plt Count 83 L D Neut % (Auto) 85 H Lymph % (Auto) 6 L [place] % (Auto) 3 Eos % (Auto) 0 Baso % (Auto) 0 Neut # (Auto) 12.2 H Lymph # (Auto) 0.8 L [place] # (Auto) 0.4 Eos # (Auto) 0.0 Baso # (Auto) 0.0 Immature Gran # (Auto) 0.93 H Absolute Nucleated RBC 0.05 H Immature Gran % 7 H Nucleated RBC % 0 PT INR APTT Fibrinogen D-Dimer Puncture Site Right Radial Left Radial ABG pH 7.10 L* 7.21 L D ABG pCO2 50 H D 38 D ABG pO2 249 H D 249 H ABG HCO3 15 L 15 L ABG O2 Saturation 100 H 100 H ABG Base Excess -14 L -12 L VBG pH VBG pCO2 VBG pO2 VBG O2 Sat (Tiffanie) VBG Base Excess FiO2 100 21 Sodium 130 L Potassium 4.0 Chloride 100 Carbon Dioxide 14.1 L* Anion Gap 16 BUN 17 Creatinine 2.3 H Estim Creat Clear Calc 39.5 L eGFR 24 L BUN/Creatinine Ratio 7 L Glucose 115 H Calculated Osmolality 263 L Lactic Acid 8.2 H* Calcium 8.4 Corrected Calcium 9.5 Phosphorus Magnesium Total Bilirubin 1.1 AST 29 ALT 26 Alkaline Phosphatase 85 D Total Protein 6.9 Albumin 2.6 L Globulin 4.3 H Albumin/Globulin Ratio 0.6 L Misc Test Result 12/25/24 12/25/24 04:47 04:50 WBC 11.0 RBC 3.97 L Hgb 10.1 L Hct 32.0 L MCV 81 MCH 25.4 MCHC 31.6 RDW Std Deviation 52.2 H Plt Count 50 L D Neut % (Auto) 81 H Lymph % (Auto) 6 L [place] % (Auto) 3 Eos % (Auto) 0 Baso % (Auto) 0 Neut # (Auto) 8.9 H Lymph # (Auto) 0.7 L [place] # (Auto) 0.3 Eos # (Auto) 0.0 Baso # (Auto) 0.0 Immature Gran # (Auto) 1.08 H Absolute Nucleated RBC 0.05 H Immature Gran % 10 H Nucleated RBC % 1 H PT INR APTT Fibrinogen D-Dimer Puncture Site Right Radial ABG pH 7.36 D ABG pCO2 37 ABG pO2 191 H D ABG HCO3 21 ABG O2 Saturation 100 H ABG Base Excess -4 L VBG pH VBG pCO2 VBG pO2 VBG O2 Sat (Tiffanie) VBG Base Excess FiO2 21 Sodium 134 L Potassium 3.5 D Chloride 98 Carbon Dioxide 21.7 Anion Gap 14 BUN 17 Creatinine 1.5 H D Estim Creat Clear Calc 61.1 eGFR 41 L BUN/Creatinine Ratio 11 L Glucose 59 L D Calculated Osmolality 267 L Lactic Acid Calcium 8.1 L Corrected Calcium 9.2 Phosphorus 2.2 L Magnesium 2.4 Total Bilirubin 1.4 H AST 59 H ALT 40 Alkaline Phosphatase 146 H D Total Protein 6.6 Albumin 2.6 L Globulin 4.0 H Albumin/Globulin Ratio 0.7 L Misc Test Result Platelets confirmed Assessment & Plan Additional Plan Additional Plan: In brief this is a 54-year-old female admitted to the ICU for septic shock 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 She has been started on Levophed. Originally was going through a peripheral IV which infiltrated. Phentolamine was infused around the site. Bedside echo was done with what appears to be adequate contractility and no large pericardial effusion, there is no evidence for cardiogenic etiology. There is no sign of obstructive physiology there is no pneumothorax nor is there any large PE. She has received volume for hypovolemia and there is no source of active bleeding. This is likely a distributive shock secondary to sepsis. -Patient felt to have toxic shock syndrome secondary to strep pyogenes - minimal change in vasopressor needs today - has been unable to clear her LA-> started on CRRT yesterday - is not volume responsive - echo results noted - Bcx with strep pyogenes - Given IVIG for toxic shock syndrome x 3 days - MRSA swab was negative therefore DC vancomycin and continue meropenem and clindamycin until susceptibilities and sensitivities for strep pyogenes are back HFrEF- noted on echo with EF 45% - ? septic cardiomyopathy v ischemic -further eval as outpt Afib in the setting of acute illness - given amio and today rate in the 60s - Patient developed multiple arrhythmias yesterday evening including SVT and junctional rhythms - This is in the setting of severe acidosis and she was given 2 A of bicarb - She was restarted on an amio drip Resp Tachypnea-mixed respiratory and metabolic acidosis - Intubated yesterday - ABG this morning shows improvement Renal YOU- basline used to be nl however no labs in last few years. will tx as acute - check urine lytes - i/os - avoid nephrotoxins - ? ATN v prerenal -> has received 5lts IVF - suspect septic ATN - Started on CRRT yesterday for assistance with clearance of lactate Anion gap metabolic acidosis-difficulty in clearing patient's lactate even on CRRT - Abdomen, pelvis and left lower extremity CT obtained to evaluate for areas of ischemia however no opal ischemic bowel or abscess or gas production noted on imaging - Given patient's inability to clear her lactate prognosis is poor - Likely coming from her left lower extremity GI Nutrition-started on trickle feeds GI prophylaxis-PPI Endo Diabetes-sliding scale insulin - Started on tube feeds Heme Thrombocytopenia- likely due to sepsis - no active bleeding at this time - stable DVT proph- Heparin 7500 q8h Coagulopathy- elevated INR with elevated DDimer and fibrinogen - low level DIC 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 - give Kcentra 5000 units - protein C unavailable - continued spread overnight - coag panel appears improved - Worsening lesions and did not appear to respond to the Kcentra ID UTI-urine cultures sent, UA suggestive of infection Cellulitis/SSTI-currently on Vanco, meropenem and clindamycin - Likely source of sepsis - Vancomycin stopped today given MRSA is negative Case discussed with ICU and nephrology Labs, imaging and records reviewed Approximately 65 critical care minutes required for evaluation, exam, review, intervention, discussion formulation of plan of care for this critically ill patient with septic shock at high risk for further ongoing decompensation. Provider Notation Provider Notation: Although this document has been carefully reviewed, there may still be some phonetic and other typographical errors. These errors are purely grammatical due to imperfections in the software program and should not be construed in any way to compromise the substance of the patient's medical care during this visit. Thank you for the opportunity and privilege in assisting you with this patient's care and management.
[2024-12-25 12:49] LABS: Lactate (Lactic Acid) 8.3 mMol/L (0.4-2.0)
[2024-12-25] MEDS: Norepinephrine/NS 16mg/250ml 16 MG/250 ML BAG 16.211 MG IV (13:16)
--- NOTE | 2024-12-25 14:18 | PC.NURSE ---
confirmed adminstration of heparin sc with dr venkat md aware pt getting 100 unit/hr in arterial line for tablo
[2024-12-25 14:45] LABS: Alanine Aminotransferase 44 U/L (10-49); Albumin, Serum 2.3 gm/dL (3.5-5.0); Albumin/Globulin Ratio 0.6 (1.2-2.2); Alkaline Phosphatase 135 U/L (46-116); Anion Gap 14 (7-16); Aspartate Amino Transferase 66 U/L (0-34); BUN/Creatinine Ratio 13 Ratio (12-20); Bilirubin,Total 1.3 mg/dL (0.3-1.2); Blood Urea Nitrogen 16 mg/dL (9-23); Calcium 7.6 mg/dL (8.3-10.6); Calcium (Corrected) 9.0 mg/dL (8.5-10.1); Carbon Dioxide 21.4 mMol/L (20.0-31.0); Chloride 98 mMol/L (98-107); Creatinine (Component) 1.2 mg/dL (0.6-1.3); Estimated Creatinine Clearance 76.4 mL/min (>60); Globulin 3.9 gm/dL (2.3-3.5); Glucose 72 mg/dL (74-106); Osmolality,Calculated 266 (275-295); Potassium 3.8 mMol/L (3.4-5.1); Sodium 133 mMol/L (136-145); Total Protein 6.2 gm/dL (5.7-8.2); eGFR 53 See Note
--- NOTE | 2024-12-25 14:47 | PC.DIETICIAN ---
Dietitian recommendation: 1. TF Goal: Vital 1.2 @ 45ml/hr x 24hrs via OGT/NGT to provide: 1083ml total vol, 1300kcal, 81g protein. If no IVF, give water flush of 35ml/hr. 2.Give SF Prostat 30 ml BID, mix with water Thank you
[2024-12-25 14:51] LABS: Basophils # (Auto) 0.0 Thou/mm3 (0.0-0.2); Basophils % (Auto) 0 % (0-2.5); Eosinophils # (Auto) 0.0 Thou/mm3 (0.0-0.5); Eosinophils % (Auto) 0 % (0-10); Hematocrit 31.8 % (36.0-46.0); Hemoglobin 10.3 g/dL (12.0-16.0); Immature Granulocytes Auto 2.25 Thou/mm3 (0.00-0.00); Lymphocytes # (Auto) 0.9 Thou/mm3 (1.0-4.8); Lymphocytes % (Auto) 6 % (10-50); Mean Corpuscular HGB Conc 32.4 g/dl (31.0-37.0); Mean Corpuscular Hemoglobin 25.5 pg (25.0-35.0); Mean Corpuscular Volume 79 fL (80-100); Monocytes # (Auto) 0.7 Thou/mm3 (0.0-0.8); Monocytes % (Auto) 4 % (0-12); Neutrophils # (Auto) 12.4 Thou/mm3 (1.8-7.7); Neutrophils % (Auto) 76 % (37-80); Nucleated Red Blood Cell # 0.11 Thou/mm3 (0.00-0.00); Nucleated Red Blood Cell % 1 /100 WBC (0); RDW Standard Deviation 51.7 fL (36.4-46.3); Red Blood Count 4.04 Miln/mm3 (4.00-5.20); White Blood Count 16.3 Thou/mm3 (3.6-11.0)
[2024-12-25 15:02] LABS: Platelet Count 30 Thou/mm3 (140-440)
[2024-12-25 15:38] LABS: Reflex Lactate? Y
[2024-12-25 16:15] LABS: Base Excess -1 (-3-3); HCO3 23 mEq/L (20-26); Inspired Oxygen, FIO2 50 %; O2 Saturation 100 % (91-98); PCO2 37 mmHg (32.0-48.0); PO2 128 mmHg (83-108); pH, Arterial 7.41 (7.35-7.45)
[2024-12-25 16:25] LABS: Allen Test Not Performed; Puncture Site Arterial Line
[2024-12-25 16:38] LABS: Lactic Acid, 3 HR 8.0 mMol/L (0.4-2.0)
[2024-12-25 16:38] LABS: Slide Review Platelets confirmed
[2024-12-25] MEDS: PROPOFOL 1,000 MG IVPB 1,000 MG/100 ML VIAL 9.444 MG IV (16:53)
[2024-12-25 18:17] LABS: Lactate (Lactic Acid) 7.8 mMol/L (0.4-2.0)
--- NOTE | 2024-12-25 18:36 | PC.RT ---
ETT Is patent and secured. No respiratory distress noted. Patient is tolerating settings as charted. Ventilator alarms on and audible.
[2024-12-25 18:37] LABS: Alanine Aminotransferase 42 U/L (10-49); Albumin, Serum 2.2 gm/dL (3.5-5.0); Albumin/Globulin Ratio 0.5 (1.2-2.2); Alkaline Phosphatase 139 U/L (46-116); Anion Gap 13 (7-16); Aspartate Amino Transferase 63 U/L (0-34); BUN/Creatinine Ratio 10 Ratio (12-20); Bilirubin,Total 1.2 mg/dL (0.3-1.2); Blood Urea Nitrogen 11 mg/dL (9-23); Calcium 7.9 mg/dL (8.3-10.6); Calcium (Corrected) 9.3 mg/dL (8.5-10.1); Carbon Dioxide 22.8 mMol/L (20.0-31.0); Chloride 98 mMol/L (98-107); Creatinine (Component) 1.1 mg/dL (0.6-1.3); Estimated Creatinine Clearance 83.4 mL/min (>60); Globulin 4.1 gm/dL (2.3-3.5); Glucose 74 mg/dL (74-106); Osmolality,Calculated 266 (275-295); Potassium 3.4 mMol/L (3.4-5.1); Sodium 134 mMol/L (136-145); Total Protein 6.3 gm/dL (5.7-8.2); eGFR 59 See Note
--- NOTE | 2024-12-25 20:10 | PC.NURSE ---
MD ENCARNACION CALLED, STATED TO CHANGE K BATH TO 4 , CALCIUM TO 3.5 AND BICARB ON TABLO, CARRIED OUT ORDER. ALSO ORDERED KPHOS 22.5MMOL, UNFORTUNATELY NOT CURRENTLY ON PYXIS, CALLED BACK AND SHE STATED CAN CHANGE THE ORDER TO 15MMOL.
[2024-12-25 20:13] LABS: Base Excess 0 (-3-3); HCO3 24 mEq/L (20-26); Inspired Oxygen, FIO2 40 %; O2 Saturation 99 % (91-98); PCO2 39 mmHg (32.0-48.0); PO2 123 mmHg (83-108); pH, Arterial 7.41 (7.35-7.45)
[2024-12-25 20:14] LABS: Puncture Site Arterial Line
[2024-12-25 20:16] LABS: Allen Test Not Performed
[2024-12-25 21:15] LABS: Reflex Lactate? Y
[2024-12-25] MEDS: fentaNYL 2,500 MCG/250 ML BAG 2,500 MCG/250 ML BAG 7.5 MCG IV (21:20)
[2024-12-25 21:25] LABS: Basophils # (Auto) 0.2 Thou/mm3 (0.0-0.2); Basophils % (Auto) 1 % (0-2.5); Eosinophils # (Auto) 0.0 Thou/mm3 (0.0-0.5); Eosinophils % (Auto) 0 % (0-10); Hematocrit 30.1 % (36.0-46.0); Hemoglobin 9.8 g/dL (12.0-16.0); Immature Granulocytes Auto 2.33 Thou/mm3 (0.00-0.00); Lymphocytes # (Auto) 1.1 Thou/mm3 (1.0-4.8); Lymphocytes % (Auto) 6 % (10-50); Mean Corpuscular HGB Conc 32.6 g/dl (31.0-37.0); Mean Corpuscular Hemoglobin 25.5 pg (25.0-35.0); Mean Corpuscular Volume 78 fL (80-100); Monocytes # (Auto) 0.6 Thou/mm3 (0.0-0.8); Monocytes % (Auto) 3 % (0-12); Neutrophils # (Auto) 13.0 Thou/mm3 (1.8-7.7); Neutrophils % (Auto) 76 % (37-80); Nucleated Red Blood Cell # 0.10 Thou/mm3 (0.00-0.00); Nucleated Red Blood Cell % 1 /100 WBC (0); RDW Standard Deviation 50.3 fL (36.4-46.3); Red Blood Count 3.85 Miln/mm3 (4.00-5.20); White Blood Count 17.1 Thou/mm3 (3.6-11.0)
[2024-12-25 21:26] LABS: Lactic Acid, 3 HR 7.0 mMol/L (0.4-2.0)
[2024-12-25 21:27] LABS: Platelet Count 21 Thou/mm3 (140-440)
[2024-12-25 21:30] LABS: Slide Review Platelets confirmed
[2024-12-25 21:54] LABS: Path Review Blood Smear Sent to Pathologist
[2024-12-25] MEDS: POT PHOS 15 mMol in NS 250 ML 15 MMOL/250 ML BAG 62.5 MMOL IV (22:07)
--- NOTE | 2024-12-25 23:20 | EKG_ITS ---
[facility] Test Date: 2024-12-25 Pat Name: ROSELINE MCGUIRE [facility] Keyseater Operator: TONYA : 1970 Requested By: Ivania Bermudez Order Number: [id number] Reading MD: Ivania Bermudez Measurements Intervals [place] Rate: 123 P: [place]: QRS: 3 QRSD: 162 T: 18 QT: 386 QTc: 554 Interpretive Statements ATRIAL FIBRILLATION WITH RAPID VENTRICULAR RESPONSE INTRAVENTRICULAR CONDUCTION DELAY Compared to ECG 12/24/2024 18:09:07 Intraventricular conduction delay now present Supraventricular rhythm no longer present Myocardial infarct finding no longer present /store/[id number].pdf
[2024-12-25] MEDS: AMIODARONE 150 MG IVPB 150 MG/100 ML BAG 600 MG IV (23:43)
[2024-12-25] MEDS: AMIODARONE 360 MG IVPB 360 MG/200 ML BAG 33.333 MG IV (23:56)
[2024-12-26] VITALS (110 sets, daily range): BP systolic 56–252; BP diastolic 39–168; PULSE 76–127; RESP 0–32; TEMP 36.2–36.8; O2SAT 97–100; BMI 65.1
[2024-12-26 01:11] LABS: Lactate (Lactic Acid) 7.4 mMol/L (0.4-2.0)
[2024-12-26] MEDS: HEPARIN SOD INJ 1000 UNIT/ML VIAL 10 ML 3000 UNIT INDWELLCAT (01:30)
[2024-12-26 01:39] LABS: Alanine Aminotransferase 42 U/L (10-49); Albumin, Serum 1.9 gm/dL (3.5-5.0); Albumin/Globulin Ratio 0.5 (1.2-2.2); Alkaline Phosphatase 161 U/L (46-116); Anion Gap 14 (7-16); Aspartate Amino Transferase 68 U/L (0-34); BUN/Creatinine Ratio 12 Ratio (12-20); Bilirubin,Total 1.2 mg/dL (0.3-1.2); Blood Urea Nitrogen 11 mg/dL (9-23); Calcium 7.9 mg/dL (8.3-10.6); Calcium (Corrected) 9.6 mg/dL (8.5-10.1); Carbon Dioxide 22.5 mMol/L (20.0-31.0); Chloride 98 mMol/L (98-107); Creatinine (Component) 0.9 mg/dL (0.6-1.3); Estimated Creatinine Clearance 101.9 mL/min (>60); Globulin 3.7 gm/dL (2.3-3.5); Glucose 98 mg/dL (74-106); Osmolality,Calculated 267 (275-295); Potassium 4.4 mMol/L (3.4-5.1); Sodium 134 mMol/L (136-145); Total Protein 5.6 gm/dL (5.7-8.2); eGFR > 60 See Note
[2024-12-26 03:44] LABS: Reflex Lactate? Y
[2024-12-26 04:26] LABS: Base Excess -4 (-3-3); HCO3 21 mEq/L (20-26); Inspired Oxygen, FIO2 21 %; O2 Saturation 98 % (91-98); PCO2 37 mmHg (32.0-48.0); PO2 99 mmHg (83-108); pH, Arterial 7.36 (7.35-7.45)
[2024-12-26 04:27] LABS: Allen Test Not Performed; Puncture Site Arterial Line
[2024-12-26] MEDS: PROPOFOL 1,000 MG IVPB 1,000 MG/100 ML VIAL 9.444 MG IV (04:45)
[2024-12-26] MEDS: CLINDAMYCIN/NS 600 MG IVPB 600 MG/50 ML BAG 100 MG IV ×3 (05:01→21:05)
[2024-12-26] MEDS: HYDROCORTISONE SOD SUCC INJ 100 MG 2 ML VIAL 50 MG IV ×4 (05:04→23:09)
[2024-12-26] MEDS: MEROPENEM INJ 1,000 MG in SODIUM CHLORIDE 0.9% (Popper) 50 ML 100 MG IV ×3 (05:06→21:05)
[2024-12-26 05:16] LABS: Lactate (Lactic Acid) 10.0 mMol/L (0.4-2.0)
[2024-12-26 05:30] LABS: D-Dimer 3610 ng/mL (<600)
[2024-12-26 05:34] LABS: Basophils # (Auto) 0.0 Thou/mm3 (0.0-0.2); Basophils % (Auto) 0 % (0-2.5); Eosinophils # (Auto) 0.0 Thou/mm3 (0.0-0.5); Eosinophils % (Auto) 0 % (0-10); Hematocrit 33.3 % (36.0-46.0); Hemoglobin 10.6 g/dL (12.0-16.0); Immature Granulocytes Auto 3.97 Thou/mm3 (0.00-0.00); Lymphocytes # (Auto) 1.6 Thou/mm3 (1.0-4.8); Lymphocytes % (Auto) 6 % (10-50); Mean Corpuscular HGB Conc 31.8 g/dl (31.0-37.0); Mean Corpuscular Hemoglobin 25.2 pg (25.0-35.0); Mean Corpuscular Volume 79 fL (80-100); Monocytes # (Auto) 1.1 Thou/mm3 (0.0-0.8); Monocytes % (Auto) 4 % (0-12); Neutrophils # (Auto) 20.9 Thou/mm3 (1.8-7.7); Neutrophils % (Auto) 76 % (37-80); Nucleated Red Blood Cell # 0.16 Thou/mm3 (0.00-0.00); Nucleated Red Blood Cell % 1 /100 WBC (0); RDW Standard Deviation 52.3 fL (36.4-46.3); Red Blood Count 4.20 Miln/mm3 (4.00-5.20); White Blood Count 27.6 Thou/mm3 (3.6-11.0)
[2024-12-26 05:35] LABS: Platelet Count 24 Thou/mm3 (140-440)
[2024-12-26 05:45] LABS: Alanine Aminotransferase 46 U/L (10-49); Albumin, Serum 2.3 gm/dL (3.5-5.0); Albumin/Globulin Ratio 0.6 (1.2-2.2); Alkaline Phosphatase 179 U/L (46-116); Anion Gap 17 (7-16); Aspartate Amino Transferase 70 U/L (0-34); BUN/Creatinine Ratio 10 Ratio (12-20); Bilirubin,Total 1.1 mg/dL (0.3-1.2); Blood Urea Nitrogen 12 mg/dL (9-23); Calcium 8.3 mg/dL (8.3-10.6); Calcium (Corrected) 9.7 mg/dL (8.5-10.1); Carbon Dioxide 20.0 mMol/L (20.0-31.0); Chloride 96 mMol/L (98-107); Creatinine (Component) 1.2 mg/dL (0.6-1.3); Estimated Creatinine Clearance 76.4 mL/min (>60); Globulin 4.1 gm/dL (2.3-3.5); Glucose 86 mg/dL (74-106); Magnesium 1.9 mg/dL (1.6-2.6); Osmolality,Calculated 265 (275-295); Phosphorous 2.3 mg/dL (2.4-5.1); Potassium 4.2 mMol/L (3.4-5.1); Sodium 133 mMol/L (136-145); Total Protein 6.4 gm/dL (5.7-8.2); eGFR 53 See Note
[2024-12-26 05:46] LABS: Slide Review Platelets confirmed
[2024-12-26 05:50] LABS: Fibrinogen 525 mg/dL (175-375); INR 1.2 (0.9-1.3); Partial Thromboplastin Time 51.1 Seconds (22.0-36.0); Prothrombin Time 13.4 Seconds (9.0-12.2)
[2024-12-26] MEDS: AMIODARONE 360 MG IVPB 360 MG/200 ML BAG 33.333 MG IV ×3 (06:52→19:15)
[2024-12-26 08:16] LABS: Reflex Lactate? Y
--- NOTE | 2024-12-26 08:24 | XR_ITS ---
Examination: Venous duplex lower extremity sonogram, bilateral. Date and time of exam: December 26, 2024, 0858 hrs. Indications: Worsening leg edema and pain 2 weeks, diabetes hypertension history, elevated d-dimer Technique: Multiple sonographic images of the deep venous system have been obtained. B-mode/2-D grayscale imaging of vascular structures and Doppler spectral analysis (waveforms) and color performed Both legs are examined. Findings: Deep venous systems do not demonstrate abnormal echogenicity. No diagnostic visualization distal left superficial femoral pain, left peroneal vein, left posterior tibial vein All visualized deep veins exhibit compressibility. All visualized deep veins exhibit augmentation. Impression: Limited study, no deep vein thrombus demonstrated
[2024-12-26 09:17] LABS: Lactic Acid, 3 HR 8.6 mMol/L (0.4-2.0)
[2024-12-26 09:42] LABS: Creatine Kinase 225 U/L (34-171)
--- NOTE | 2024-12-26 10:15 | ESPR_ITS ---
<Statement entered by Michael Verduzco MD - 12/27/24 14:39> I saw and examined patient personally and supervised PGY 1 resident, Dr. Dykes with formulating a management plan. I agree with the documentation with the exceptions as listed below. 54-year-old female with past medical history of insulin-dependent DM type II, lymphedema, asthma, morbidly obese, history of epilepsy, nonambulatory for 9 years, wheelchair-bound was initially admitted to the medical floor for sepsis secondary to cellulitis of the left lower extremity. Over the course of the night, her clinical condition deteriorated, with concerns for distributive shock in the setting of sepsis, Despite initial fluid resuscitation, she remained persistently hypotensive, requiring transfer to the ICU for vasopressor support and close monitoring . Problem list: 1. Distributive shock secondary to toxic shock syndrome 2. Atrial fibrillation with RVR on amiodarone infusion 3. Acute systolic and diastolic dysfunction with mildly reduced ejection fraction [40-45%] 4. Acute respiratory failure requiring intubation and mechanical ventilation secondary to severe metabolic acidosis 5. Acute renal failure secondary to shock and ATN on CRRT 6. Lactic acidosis secondary to toxic shock syndrome 7. NAGMA 8. Transaminitis 9. Coagulopathy secondary to toxic shock syndrome?possible DIC 10. Thrombocytopenia due to severe sepsis 11. Leukocytosis 12. 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 Strep pyogenes bacteremia 15. History of seizures Overnight patient episode of A-fib with RVR around 23-80 with heart rates in the 130s?140s. Amiodarone infusion was started and patient converted to sinus rhythm around 5:30 AM with heart rates between 80s?100s. Today we will continue amiodarone infusion. With regards to patient's toxic shock syndrome, antibiotic coverage with clindamycin and meropenem IV. Clindamycin is for suppression of bacterial endotoxins from strep group A strep. Patient also on norepinephrine infusion and stress dose hydrocortisone 50 mg IV Q6 hourly for refractory distributive shock. Completed a 3-day course of IVIG as above for refractory toxic shock syndrome on 12/25. Blood culture grew strep pyogenes pansensitive, however patient is on broad-spectrum coverage and still not improving clinically with an uptrending WBC count. Will continue with the current regimen for now. For her acute respiratory failure with hypoxia secondary to metabolic acidosis, patient continues to be on assist mode, volume control ventilation. Currently no plans to attempt SBT as patient clinical picture has not yet improved enough for a successful extubation. ABG this morning showed pH 7.36 and pCO2 37. Her pCO2 was within the expected range based on Burton formula [36?40]. Therefore her concomitant respiratory acidosis has resolved. Patient's lactic acidosis is severe and continues to uptrend. She had a brief period of improvement while on CRRT however still was not adequately cleared with a lactate of 10 this morning. Her shock is being adequately treated with vasopressors and is sustaining a MAP` of >65. All these factors strongly suggest an additional etiology of her lactic acidosis. Patient had 2 CT scans of her lower limbs, 1 on 12/23 and 12/24 which were both negative for signs of necrotizing fasciitis or gas gangrene. However patient has clear signs of skin desquamation on her lower limbs with bullae in various stages, some have erupted and draining serous sanguinous fluid. She also has confirmation of group A strep from her blood cultures. These findings strongly point towards her legs as being a source of lactic acidosis. Extensive DVT with cerulea dolens may also be a cause of lactic acidosis. Bilateral lower extremity venous Doppler ultrasound was performed today which virtually ruled this out. Bedside arterial duplex of dorsalis pedis was also performed which did confirm blood flow. General surgery, Dr. Hines was consulted today to evaluate her legs for possible decompression/debridement. With regards to patient's coagulopathy with elevated PTT of 51.1 and PT 13.4 we are trending coagulation panels daily. Her thrombocytopenia of 24 is also a concern, however this point in time no signs of active bleeding. If she develops active bleeding or platelets drop to less than 15, we will transfuse her with platelets. Plan of care discussed with Attending Dr. Zion Verduzco MD PGY 2 Disclaimer: This note was dictated by speech recognition. Minor errors in subsurface augmentee elint operator may be present due to voice recognition software. Documentation for date of: 12/26/24 Subjective Subjective Interval history: 54-year-old female with past medical history of prior SD?, Insulin-dependent type 2 diabetes, lymphedema, lipedema, asthma, epilepsy, morbid obesity, nonambulatory for 9 years, wheelchair-bound presenting to the ED on 12/22 with left lower extremity pain and oozing. Patient states that about 3 weeks ago she slammed her left leg on a brick wall and ever since that time her left leg has progressively worsened and started oozing. Patient lives at home and is largely immobile and requires fire support specialist in the form of her grandson who takes care of her. Patient has not been seen by outpatient wound care as she says her motorized wheelchair has been broken. Patient also states that she has had a heart attack in the past but has never followed up with cardiology. Patient also has asthma but she denies having any shortness of breath at this time, uses albuterol twice a week. Medical history: As stated above Surgical history: Denies Allergies: Aspirin, codeine, Keppra, morphine, penicillin causes dyspnea Medications: Pending med rec Family history: Patient's mother and grandmother from breast cancer, denies having any family history of heart attack or stroke Social history: Patient lives at home, grandson fire support specialist, denies any alcohol, tobacco or illicit drug use ROS: All 12 systems assessed and the patient denies unless otherwise stated in HPI In the ED, patient presented mildly hypotensive 92/56, heart rate of 92, respiratory rate of 18, afebrile satting 96 on room air. Pertinent lab findings include WBC of 5.8, potassium 3.1, creatinine 1.8, eGFR of 33, lactic acid initially 7.1 uptrending to 8.0, T. bili of 2.2, AST 21, ALT 14, BNP of 385, Pro-Umberto of 87. Urinalysis shows signs of urinary tract infection. Venous Doppler study is negative for DVT, chest x-ray does not show any active disease and tibia/fibula x-ray shows no acute fracture. Patient was admitted to floors for sepsis secondary to cellulitis . At midnight NUTRITION ASSOCIATE was called due to hypotension, despite aggressive fluid resuscitation patient was remained persistent hypotensive, however nursing staff was having a hard time to obtain accurate measurement due to body habitus. Repeat labs did revealed lactic acidosis which did not improved even after 5 L of fluids, Cheetah monitor was placed, patient found to be not fluid responsive. At this point decision was made to upgrade patient to ICU for pressor support. Interval History 12/23/24: Overnight patient had no further events. Input 5 L, output 0. This a.m. IV access infusing norepinephrine extravasated and was removed. Patient complains of mild SOB at rest and also 9/10 constant left leg pain. Labs showed Hb 12.2, PLT 149, BUN 14, CR 2, glucose 84. Lactic acid down trended to 5.6 from 6, Mg 1.5, CK 515, T. bili 2. PTT 33.7, PT 16.7, INR 1.6, fibrinogen 560, D-dimer 3780. Blood cultures growing GPC preliminary. CT of the lower leg showed extensive lymphedema with cellulitis. No signs of osteomyelitis or necrotizing fasciitis. Repleted with magnesium sulfate 4 g IV x 1. Started on clindamycin, renally dosed for toxic shock syndrome. Phentolamine SC was administered for extravasation of norepinephrine. RIJ CVC was placed for norepinephrine administration. DuoNebs were placed as needed. Patient was also started on IV Ig and prothrombin complex concentrate for toxic shock syndrome and likely DIC. 12/24/24: Overnight patient went into SVT with highest rate being 221. EKG showed A-fib with RVR rate 141. Patient was started on amiodarone infusion as per cardiology recommendations. Heart rate improved to 80s/110s overnight. Patient was examined at bedside; she seems to be in some distress with tachypnea and labored breathing noted (later put on BiPAP). The cellulitis and lesions 2/2 extravasation of Levophed seem unchanged from yesterday. Her YOU seems to be improving due to an increased urine output of 460 mL last night whereas the day before she was mostly anuric. Based on urine labs showing random creatinine 203, random sodium 21.1, random potassium 68, and random chloride 29.0, the most likely cause of the YOU is renal hypoperfusion 2/2 toxic shock syndrome. Blood cultures grew Streptococcus pyogenes, reaffirming that patient's current hypotension and other symptoms are 2/2 toxic shock syndrome from the above organism which may have originated from patient's cellulitis. Patient's lactic acid continues to trend upwards from 5.1 to 5.4 and now is 6.0 at the time of writing this note (11:30). Other pertinent labs include sodium drop to 134 from 136, magnesium bump to 3.3 from 1.5, creatinine bump to 2.2 from 2.1, PT bump to 12.3 from 12.1, INR 1.1, APTT bump to 45.8 from 30.5, fibrinogen drop to 506 from 560, total bilirubin drop to 1.4 from 2.1, and CK drop to 251 from 450. Current plan is to dampen the cytokine storm from toxic shock syndrome by giving IVIG (to be dosed by pharmacy), switch IV cefepime to IV meropenem in her antibiotic regimen, and continue pressor support to maintain MAP > 65 (patient does not seem fluid-responsive). 12/25/24: No overnight events. Patient was examined at bedside; she is intubated now and exhibiting many concerning findings on physical exam including further spread of induration at the left thigh, formation of new bullae just distal and lateral of the left knee, as well as increasingly necrotic / black appearance of the ulcerated area on the lateral left lower extremity and black lesions on the 2nd and 4th toes of the left foot. Pertinent labs today include hemoglobin now 10.1 from 11.0, platelet count now 50 from 83, creatinine now 1.5 from 2.3, blood glucose 59, lactic acid now 8.3 from 8.2, phosphorus 2.2 from 3.6, total bilirubin now 1.4 from 1.1, AST now 59 from 29, ALT now 40 from 26, and alkaline phosphatase now 146 from 85. In terms of changes to management, patient's IV vancomycin will be stopped (MRSA screen came back negative), patient will be started trickle feed @ 10 mL/hr, IV Protonix 40 mg qD will be started for GI prophylaxis due to patient's new intubated status, and she will have an arterial line inserted today for effective monitoring of patient ABG's. She will be continued on IV meropenem and clindamycin as well as given her last of 3 doses of IVIG to treat her ongoing toxic shock syndrome. Due to continued need for intubation and pressors, patient continues to meet criteria for ICU-level management. 12/26/24: Overnight, patient was noted to have atrial fibrillation with RVR (heart rate 130s) beginning at around 11:30 PM; she was given a bolus of amiodarone around midnight followed by amiodarone drip and she converted back to sinus rhythm around 5:30 AM. Patient's total urine output last night was 5 mL. She has been tolerating trickle feeds at 20 mL/h with 30 mL/h water flushes; her blood sugars have been in the 100s and at 23:07 last night she was given an amp of D50 for a blood glucose of 65. Patient was examined at bedside; her cellulitis continues to worsen with further spread of erythema up her lateral left leg and now reaching up to the left side of patient's hip and torso as well as development of new bullae and increasingly cyanotic appearance of bilateral toes (moreso of the right foot). Concerningly, patient's lactic acid continues to uptrend despite CRRT last night and was found to be 10.0 (from 7.4 around 5 hours earlier) at 05:10 this morning. This ongoing lactic acidosis could be secondary to possible necrotizing infection or acute compartment syndrome of patient's severely lymphedematous legs. Hand-held Doppler was able to appreciate dorsalis pedis pulses bilaterally today. Other worrying trends and labs include continued leukocytosis (17.1 -> 27.6), worsening thrombocytopenia (platelet count 50 -> 24), PT 12.7 -> 13.4, APTT 51.1, fibrinogen 525, and D-dimer 3060 -> 3610. At this point, due to concern for necrotizing skin and soft tissue infection in the setting of worsening cellulitis and ongoing lactic acidosis, the current plan is to have patient transferred to another facility for higher level care. General Surgery (Dr. Hines) was consulted and it was agreed that patient's best hope is to be transferred to a facility that can offer definitive surgical intervention that may include aildp-bnn-yomb amputation or even possible disarticulation of the hip. Transfer nurse has been contacted to initiate transfer proceedings accordingly. Exam Vital Signs Temp Pulse Resp BP Pulse Ox O2 Del Method O2 Flow Rate 98.2 F 77 28 H 98/64 100 Mechanical Ventilation 10 12/26/24 04:00 12/26/24 06:52 12/26/24 06:30 12/26/24 06:52 12/26/24 06:30 12/26/24 00:00 12/24/24 11:22 FiO2 30 12/26/24 06:30 Narrative Exam General: Extremely morbidly obese female. A/O x 3 in some distress. Head: Normocephalic, atraumatic. Eyes: EOMI. Anicteric, vision grossly intact. Ears: No ear pain, no ear discharge, Hearing grossly intact. Nose: No nasal discharge. Mouth/Throat: Facial hair bilaterally noted on the chin but not at center of chin (female hirsutism). Poor dentition. Oral mucosa dry. No obvious lesions in oropharynx. Cardiovascular: Difficult to auscultate due to body habitus but seemingly normal rate and normal rhythm, no murmur, no JVD or carotid bruits. +S1/S2. Respiratory: Now intubated. Difficult to auscultate due to body habitus but anterior lung mccallum seemingly clear to auscultation without wheezing or crackles appreciated. Tachypneic and labored breathing. No accessory muscle use. Gastrointestinal: Soft, nontender, obese, no palpable masses. No guarding or rebound tenderness. Difficult to appreciate bowel sounds due to body habitus. Extremities: (due to level of detail necessary to adequately describe patient's skin-related presentation, this portion of the exam will be split into one section detailing only new changes today and one section describing findings that were already present on previous days) NEW Today, patient's cellulitis continues to worsen. There is new erythema (beyond demarcations) that travels up the lateral left thigh and reaches up towards the left side of patient's hip and torso as well as development of new bullae bilaterally and increasingly cyanotic appearance of bilateral toes (worse on the left foot). The necrotic lesions of the toes on left foot appear darker and larger. Multiple areas of new induration and denuded skin of bilateral lower extremities anteriorly. Mottling noted of right lower extremity. Posterior left thigh continues to worsen in appearance and appears purple and engorged. New discolored lesion near right buttock. Bilateral dorsalis pedis pulses were able to be appreciated by handheld Doppler. Dusky discoloration of right fingers have spread to DIP while new dusky discoloration noted of left pointer finger and middle finger. Hands feel cold and puffy. OLD Massive bilateral lymphedema that is significantly worse at left leg. Large area of wrinkly, rough, induration most prominent at left medial thigh that spreads to all areas distally, while right leg also has areas like these as well distributed all across right espinoza and areas distal to the right espinoza. Black eschars noted at left medial thigh and at 2nd and 4th toes on left foot (worsening) with large patch of ulceration / desquamation on anterolateral left espinoza (that is now turning black). Significant lichenification of left foot most dense at the base of the 3rd toe and dorsolaterally. Lichenification of right foot as well. Blood seeping out from left hallux toenail (mostly dried), significant hyperkeratinization and elevation of toenails, especially left 3rd toenail and right hallux toenail. Ecchymosis of right proximal upper extremity, and red-purple ecchymosis of right antecubital fossa that is unchanged from yesterday. Dusky fingertips of right hand with mottling noticed on hands bilaterally. Objective Labs 12/26/24 13:03 12/27/24 00:20 Labs: Laboratory Results - last 24 hr 12/25/24 12/25/24 12/25/24 12:23 15:59 16:08 WBC 16.3 H D RBC 4.04 Hgb 10.3 L Hct 31.8 L MCV 79 L MCH 25.5 MCHC 32.4 RDW Std Deviation 51.7 H Plt Count 30 L D Neut % (Auto) 76 Lymph % (Auto) 6 L Foard % (Auto) 4 Eos % (Auto) 0 Baso % (Auto) 0 Neut # (Auto) 12.4 H Lymph # (Auto) 0.9 L Foard # (Auto) 0.7 Eos # (Auto) 0.0 Baso # (Auto) 0.0 Immature Gran # (Auto) 2.25 H Absolute Nucleated RBC 0.11 H Immature Gran % 14 H Nucleated RBC % 1 H Smear Path Review PT INR APTT Fibrinogen D-Dimer Puncture Site Arterial Line ABG pH 7.41 ABG pCO2 37 ABG pO2 128 H D ABG HCO3 23 ABG O2 Saturation 100 H ABG Base Excess -1 FiO2 50 Sodium 133 L Potassium 3.8 Chloride 98 Carbon Dioxide 21.4 Anion Gap 14 BUN 16 Creatinine 1.2 Estim Creat Clear Calc 76.4 eGFR 53 L BUN/Creatinine Ratio 13 Glucose 72 L Calculated Osmolality 266 L Lactic Acid 8.3 H* 8.0 H* Calcium 7.6 L Corrected Calcium 9.0 Phosphorus Magnesium Total Bilirubin 1.3 H AST 66 H ALT 44 Alkaline Phosphatase 135 H Total Creatine Kinase Total Protein 6.2 Albumin 2.3 L Globulin 3.9 H Albumin/Globulin Ratio 0.6 L Misc Test Result Platelets confirmed Blood Type Antibody Screen Blood Bank Wristband ID Blood Bank Comment 12/25/24 12/25/24 12/25/24 18:07 19:55 21:08 WBC 17.1 H RBC 3.85 L Hgb 9.8 L Hct 30.1 L MCV 78 L MCH 25.5 MCHC 32.6 RDW Std Deviation 50.3 H Plt Count 21 L* D Neut % (Auto) 76 Lymph % (Auto) 6 L Foard % (Auto) 3 Eos % (Auto) 0 Baso % (Auto) 1 Neut # (Auto) 13.0 H Lymph # (Auto) 1.1 Foard # (Auto) 0.6 Eos # (Auto) 0.0 Baso # (Auto) 0.2 Immature Gran # (Auto) 2.33 H Absolute Nucleated RBC 0.10 H Immature Gran % 14 H Nucleated RBC % 1 H Smear Path Review Sent to Pathologist PT INR APTT Fibrinogen D-Dimer Puncture Site Arterial Line ABG pH 7.41 ABG pCO2 39 ABG pO2 123 H ABG HCO3 24 ABG O2 Saturation 99 H ABG Base Excess 0 FiO2 40 Sodium 134 L Potassium 3.4 Chloride 98 Carbon Dioxide 22.8 Anion Gap 13 BUN 11 Creatinine 1.1 Estim Creat Clear Calc 83.4 eGFR 59 L BUN/Creatinine Ratio 10 L Glucose 74 Calculated Osmolality 266 L Lactic Acid 7.8 H* 7.0 H* Calcium 7.9 L Corrected Calcium 9.3 Phosphorus Magnesium Total Bilirubin 1.2 AST 63 H ALT 42 Alkaline Phosphatase 139 H Total Creatine Kinase Total Protein 6.3 Albumin 2.2 L Globulin 4.1 H Albumin/Globulin Ratio 0.5 L Misc Test Result Platelets confirmed Blood Type B Positive Antibody Screen NEGATIVE Blood Bank Wristband ID Yes Blood Bank Comment PLATP Ready 12/26/24 12/26/24 12/26/24 00:31 04:10 04:40 WBC 27.6 H D RBC 4.20 Hgb 10.6 L Hct 33.3 L MCV 79 L MCH 25.2 MCHC 31.8 RDW Std Deviation 52.3 H Plt Count 24 L* Neut % (Auto) 76 Lymph % (Auto) 6 L Foard % (Auto) 4 Eos % (Auto) 0 Baso % (Auto) 0 Neut # (Auto) 20.9 H Lymph # (Auto) 1.6 Foard # (Auto) 1.1 H Eos # (Auto) 0.0 Baso # (Auto) 0.0 Immature Gran # (Auto) 3.97 H Absolute Nucleated RBC 0.16 H Immature Gran % 14 H Nucleated RBC % 1 H Smear Path Review PT 13.4 H INR 1.2 APTT 51.1 H Fibrinogen 525 H D-Dimer 3610 H Puncture Site Arterial Line ABG pH 7.36 ABG pCO2 37 ABG pO2 99 D ABG HCO3 21 ABG O2 Saturation 98 ABG Base Excess -4 L FiO2 21 Sodium 134 L 133 L Potassium 4.4 D 4.2 Chloride 98 96 L Carbon Dioxide 22.5 20.0 Anion Gap 14 17 H BUN 11 12 Creatinine 0.9 1.2 Estim Creat Clear Calc 101.9 76.4 eGFR > 60 53 L BUN/Creatinine Ratio 12 10 L Glucose 98 86 Calculated Osmolality 267 L 265 L Lactic Acid 7.4 H* Calcium 7.9 L 8.3 Corrected Calcium 9.6 9.7 Phosphorus 2.3 L Magnesium 1.9 Total Bilirubin 1.2 1.1 AST 68 H 70 H ALT 42 46 Alkaline Phosphatase 161 H D 179 H Total Creatine Kinase Total Protein 5.6 L 6.4 Albumin 1.9 L 2.3 L Globulin 3.7 H 4.1 H Albumin/Globulin Ratio 0.5 L 0.6 L Misc Test Result Platelets confirmed Blood Type Antibody Screen Blood Bank Wristband ID Blood Bank Comment 12/26/24 12/26/24 05:10 08:59 WBC RBC Hgb Hct MCV MCH MCHC RDW Std Deviation Plt Count Neut % (Auto) Lymph % (Auto) Foard % (Auto) Eos % (Auto) Baso % (Auto) Neut # (Auto) Lymph # (Auto) Foard # (Auto) Eos # (Auto) Baso # (Auto) Immature Gran # (Auto) Absolute Nucleated RBC Immature Gran % Nucleated RBC % Smear Path Review PT INR APTT Fibrinogen D-Dimer Puncture Site ABG pH ABG pCO2 ABG pO2 ABG HCO3 ABG O2 Saturation ABG Base Excess FiO2 Sodium Potassium Chloride Carbon Dioxide Anion Gap BUN Creatinine Estim Creat Clear Calc eGFR BUN/Creatinine Ratio Glucose Calculated Osmolality Lactic Acid 10.0 H* 8.6 H* Calcium Corrected Calcium Phosphorus Magnesium Total Bilirubin AST ALT Alkaline Phosphatase Total Creatine Kinase 225 H Total Protein Albumin Globulin Albumin/Globulin Ratio Misc Test Result Blood Type Antibody Screen Blood Bank Wristband ID Blood Bank Comment ABG Interpretation ABG results: 12/22/24 12/22/24 12/23/24 16:49 23:40 13:05 ABG pH 7.39 7.29 L D ABG pCO2 33 37 ABG pO2 60 L 73 L ABG HCO3 20 18 L ABG O2 Saturation 92 94 ABG Base Excess -5 L -8 L VBG pH 7.35 VBG pCO2 37 VBG pO2 27 VBG Base Excess -5 L 12/24/24 12/24/24 12/24/24 08:54 17:12 17:19 ABG pH 7.25 L 7.16 L* ABG pCO2 34 36 ABG pO2 166 H D 127 H D ABG HCO3 15 L 13 L ABG O2 Saturation 100 H 99 H ABG Base Excess -11 L -15 L VBG pH 7.12 L VBG pCO2 42 VBG pO2 44 VBG Base Excess -15 L 12/24/24 12/24/24 12/25/24 19:45 22:40 04:47 ABG pH 7.10 L* 7.21 L D 7.36 D ABG pCO2 50 H D 38 D 37 ABG pO2 249 H D 249 H 191 H D ABG HCO3 15 L 15 L 21 ABG O2 Saturation 100 H 100 H 100 H ABG Base Excess -14 L -12 L -4 L VBG pH VBG pCO2 VBG pO2 VBG Base Excess 12/25/24 12/25/24 12/26/24 15:59 19:55 04:10 ABG pH 7.41 7.41 7.36 ABG pCO2 37 39 37 ABG pO2 128 H D 123 H 99 D ABG HCO3 23 24 21 ABG O2 Saturation 100 H 99 H 98 ABG Base Excess -1 0 -4 L VBG pH VBG pCO2 VBG pO2 VBG Base Excess Quality Measures Quality Measures none Assessment & Plan Assessment Current Active Medications: Generic Name Dose Route Start Last Admin Trade Name Freq PRN Reason Stop Dose Admin Acetaminophen 650 mg 12/22/24 17:09 12/23/24 10:19 Acetaminophen 325 Mg Tablet PO 01/21/25 17:08 650 mg Q6H PRN Administration Pain 1-3 and/or Fever >100.1 Albuterol/Ipratropium 3 ml 12/23/24 09:36 Albuterol/Ipratropium (Duoneb) Rt Ginny 3 Ml Nebu INH 01/22/25 07:44 Q8HRRT PRN wheezing Clotrimazole 0 gm 12/23/24 09:00 12/25/24 20:11 Clotrimazole Cr 1% 30 Gm Tube TOP 01/22/25 08:59 1 applicatio BID TRACY Administration Dextrose 25 ml 12/22/24 17:09 12/25/24 23:07 Dextrose 50%-Water Inj 50 Ml Syringe IV 01/21/25 17:08 25 ml Q15MIN PRN Administration BG 50-70 responsive npo pt Dextrose 50 ml 12/22/24 17:09 12/25/24 14:03 Dextrose 50%-Water Inj 50 Ml Syringe IV 01/21/25 17:08 50 ml Q15MIN PRN Administration BG <50 OR BG <70 & pt unresponsive Glucagon 1 mg 12/22/24 17:09 Glucagon Inj 1 Mg Vial IM Q15MIN PRN BG <70, and no IV access Heparin Sodium (Porcine) 7,500 unit 12/23/24 14:00 12/26/24 05:20 Heparin Sod Inj 5000 Unit/Ml Vial SC 01/06/25 13:59 Not Given Q8HR TRACY Hydrocortisone Sodium Succinate 50 mg 12/24/24 18:00 12/26/24 05:04 Hydrocortisone Sod Succ Inj 100 Mg 2 Ml Vial IV 01/23/25 17:59 50 mg Q6HR TRACY Administration Sodium Chloride 1,000 mls @ 150 mls/hr 12/23/24 01:00 12/23/24 06:45 Ns IV 01/22/25 00:59 0 mls/hr On Hold: 12/23/24 06:11 .Q6H40M TRACY Infusion Norepinephrine Bitartrate 16 mg in 250 mls @ 7.369 mls/hr 12/23/24 07:12 12/26/24 07:28 Levophed In Ns 16mg/250ml IV 01/22/25 07:11 0.05 mcg/kg/min .Q24H PRN 7.369 mls/hr PER protocol Titration Protocol 0.05 MCG/KG/MIN Clindamycin/Sodium Chloride 600 mg in 50 mls @ 100 mls/hr 12/23/24 09:35 12/26/24 05:01 Cleocin/Ns Ivpb IV 12/30/24 09:34 100 mls/hr Q8HR TRACY Administration Propofol 1,000 mg in 100 mls @ 4.722 mls/hr 12/24/24 16:53 12/26/24 06:00 Diprivan Ivpb IV 01/23/25 16:52 5 mcg/kg/min .[id number] PRN 4.722 mls/hr Per Protocol Titration Protocol 5 MCG/KG/MIN Fentanyl Citrate 2,500 mcg in 250 mls @ 2.5 mls/hr 12/24/24 16:55 12/26/24 06:00 Sublimaze Inj 2,500 Mcg/250 Ml Bag IV 12/29/24 16:54 75 mcg/hr .Q24H PRN 7.5 mls/hr PER PROTOCOL Titration Protocol 25 MCG/HR Vasopressin/Sodium Chloride 20 unit in 100 mls @ 9 mls/hr 12/24/24 17:09 Vasostrict/Ns Ivpb IV 01/23/25 17:08 .Q11H7M PRN PER PROTOCOL Protocol 0.03 UNIT/MIN Meropenem 1,000 mg/ Sodium 50 mls @ 100 mls/hr 12/25/24 17:00 12/26/24 05:06 Chloride IV 01/01/25 16:59 100 mls/hr Q8HR TRACY Administration Amiodarone HCl/Dextrose 360 mg in 200 mls @ 33.333 mls/hr 12/25/24 23:35 12/26/24 06:52 Nexterone Ivpb IV 12/26/24 11:34 33.333 mls/hr .Q6H TRACY Administration Insulin Human Lispro 0 unit 12/22/24 21:00 12/26/24 07:27 Insulin Lispro (Admelog) 1 Unit/0.01 Ml Unit SC 01/21/25 20:59 Not Given ACHS TRACY Protocol Ondansetron HCl 4 mg 12/22/24 17:09 Ondansetron Inj 2 Mg/Ml Inj 2 Ml IVP 01/21/25 17:08 Q6H PRN NAUSEA OR VOMITING Protocol Pantoprazole Sodium 40 mg 12/25/24 11:15 12/25/24 11:41 Pantoprazole Inj 40 Mg Vial IVP 01/24/25 11:14 40 mg QDAY TRACY Administration Pharmacy Consult 1 each 12/23/24 11:15 Pharmacy Renal Dose Adjustment 1 Ea XX 01/22/25 11:14 PRN PRN CONSULT Sennosides 1 tab 12/22/24 17:09 Senna Tablet PO 01/21/25 17:08 QDAY PRN constipation Protocol Plan 54-year-old female with past medical history of prior SD, insulin-dependent type 2 diabetes, lymphedema, lipedema, asthma, epilepsy, morbid obesity, nonambulatory status for 9 years, and wheelchair-bound status presenting to the ED on 12/22 with left lower extremity pain and oozing. NUTRITION ASSOCIATE was called due to hypotension and, despite aggressive fluid resuscitation, patient remained persistently hypotensive. However, nursing staff was having a hard time to obtain accurate measurement due to body habitus. Repeat labs did revealed lactic acidosis which did not improved even after 5 L of fluids, Cheetah monitor was placed, patient found to be not fluid responsive. At this point decision was made to upgrade patient to ICU for pressor support. Overnight, patient was noted to have atrial fibrillation with RVR (heart rate 130s) beginning at around 11:30 PM; she was given a bolus of amiodarone around midnight followed by amiodarone drip and she converted back to sinus rhythm around 5:30 AM. Patient's total urine output last night was 5 mL. She has been tolerating trickle feeds at 20 mL/h with 30 mL/h water flushes; her blood sugars have been in the 100s and at 23:07 last night she was given an amp of D50 for a blood glucose of 65. Patient was examined at bedside; her cellulitis continues to worsen with further spread of erythema up her lateral left leg and now reaching up to the left side of patient's hip and torso as well as development of new bullae and increasingly cyanotic appearance of bilateral toes (moreso of the right foot). Concerningly, patient's lactic acid continues to uptrend despite CRRT last night and was found to be 10.0 (from 7.4 around 5 hours earlier) at 05:10 this morning. This ongoing lactic acidosis could be secondary to possible necrotizing infection or acute compartment syndrome of patient's severely lymphedematous legs. Hand-held Doppler was able to appreciate dorsalis pedis pulses bilaterally today. Other worrying trends and labs include continued leukocytosis (17.1 -> 27.6), worsening thrombocytopenia (platelet count 50 -> 24), PT 12.7 -> 13.4, APTT 51.1, fibrinogen 525, and D-dimer 3060 -> 3610. At this point, due to concern for necrotizing skin and soft tissue infection in the setting of worsening cellulitis and ongoing lactic acidosis, the current plan is to have patient transferred to another facility for higher level care. General Surgery (Dr. Hines) was consulted and it was agreed that patient's best hope is to be transferred to a facility that can offer definitive surgical intervention that may include [id number] amputation or even possible disarticulation of the hip. Transfer nurse has been contacted to initiate transfer proceedings accordingly. 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 She was then started on Levophed through a peripheral IV but this led to extravasation and phentolamine had to be infused around the site. Cardiogenic etiology less likely due to bedside echocardiogram showed seemingly adequate contractility without large pericardial effusion. Obstructive etiology less likely due to absence of pneumothorax or PE. Hypovolemic etiology less likely due to receiving adequate fluid infusion without source of active bleeding. Favored etiology of primary contribution is distributive shock 2/2 toxic shock syndrome (due to drop in platelets, YOU, and other labs suggesting some level of DIC) Importantly, clindamycin is unique as an antibiotic for treatment of TSS in that it binds to the 50S ribosomal subunit of bacteria and directly suppresses synthesis of exotoxins like Toxic Shock Syndrome Toxin-1 (TSST-1) and enterotoxins produced by Streptococcus pyogenes Dx: -12/22 BCx (04/01) grew zaman-sensitive Streptococcus pyogenes (Group A Streptococcus) -12/22 echocardiogram showed reduced EF of 45% Rx: -s/p completion of IVIG administration x 3 [12/23-12/25] -Antibiotic regimen as detailed in ID section -Monitor hemodynamics and titrate pressor support as appropriate to maintain MAP > 65 -Stress dose IV hydrocortisone 50 mg q6HR for refractory distributive shock RRx: -Patient is on broad-spectrum coverage and still not improving with an uptrending WBC #Acute systolic and diastolic dysfunction w/ mildly reduced EF [40-45%] DDx: septic cardiomyopathy, ischemic cardiomyopathy Dx: -12/22 echocardiogram showed reduced EF of 45% Rx: -Further evaluation in the outpatient setting #Atrial fibrillation w/ RVR on amiodarone infusion Patient has been having atrial fibrillation w/ RVR throughout her stint in the ICU but converted to sinus rhythm (HR 80-90) beginning this morning Completed amiodarone infusion Respiratory #Acute respiratory failure with hypoxia requiring intubation and mechanical ventilation 2/2 severe metabolic acidosis Dx: -ABG before intubation -> ABG most recently : pH 7.16 -> 7.36, pCO2 36 -> 37 (pCO2 within expected range of 36-40 calculated by Burton formula, suggesting resolution of concomitant respiratory acidosis) -Sputum culture pending -ACVC Mode Rx: -Continue intubation and mechanical ventilation (not fit for SBT) -Started IV Protonix 40 mg qD for GI prophylaxis due to patient's intubated status RRx: -Follow up on repeat ABG at 4 PM, adjust ventilator settings accordingly Renal #Acute renal failure likely 2/2 shock and ATN on CRRT Creatinine initially elevated upon admission at 1.8 and had slowly up-trended Baseline creatinine used to be WNL but last lab was from a few years ago However, patient was noted to have almost no UOP for days despite adequate fluid resuscitation, suggesting YOU 2/2 ATN 2/2 renal hypoperfusion Dx: -Creatinine 1.2 today (in the setting of CRRT, patient's UOP yesterday night was 310, difficult to assess ongoing improvement of YOU or not) Rx: -CRRT as needed per Nephrology recommendations -Strict I's & O's -Avoid nephrotoxins #Lactic acidosis 2/2 toxic shock syndrome #High anion gap metabolic acidosis Likely etiology is lactic acidosis from ongoing hypoperfusion 2/2 toxic shock syndrome and YOU Dx: -Lactic acid now 10.0 this morning from 7.4 yesterday despite being on CRRT and maintaining MAP > 65 with vasopressors -12/23 and 12/24 CT scans of lower extremity were negative for signs of necrotizing fasciitis or gas gangrene -However patient has clear signs of skin desquamation on her lower limbs with bullae in various stages, some have erupted and draining serous sanguinous fluid. She also has confirmation of group A strep from her blood cultures. These findings strongly point towards her legs as being a source of lactic acidosis. -Bilateral lower extremity venous Doppler ultrasound was performed today which virtually ruled out cerulea dolens 2/2 extensive DVT -Bedside arterial duplex of dorsalis pedis was also performed which did confirm blood flow Rx: -General Surgery (Dr. Hines) consulted regarding possible surgical decompression/debridement options as well as opinions on the viability of transferring patient to another facility for [id number]-care -Transfer nurse contacted to initiate proceedings necessary to possible transfer -Treat underlying cause (toxic shock syndrome) GI #Transaminitis In the setting of ongoing toxic shock syndrome Endocrine #T2DM Rx: -Tube feeds @ 20 mL / hr and 30 mL/hr flushes -SF Prostat 30 mL BID -Blood sugar check q1HR Heme #Thrombocytopenia Likely 2/2 sepsis Dx: -Platelet count down to 24 from 50 yesterday Rx: -Continue to monitor CBC and for signs of active bleeding -Transfuse platelets if platelets less than 50 with active bleeding or less than 15 RRx: -Thrombocytopenia seems to be worsening #Coagulopathy 2/2 toxic shock syndrome - possible DIC Dx: -Elevated INR, elevated D-Dimer, and elevated fibrinogen suggestive of low level DIC Rx: -Trend coagulation panels daily #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 necrotizing cellulitis of the lesion at the left lower extremity s/p KCentra 5,000 U x 1 on 12/23/24 (protein C unavailable) #Leukocytosis In the setting of ongoing toxic shock syndrome, infection, and steroid medications Dx: -WBC now 27.6 from 11.0 ID #Cellulitis #Streptococcus pyogenes bacteremia #Chronic bilateral lower extremity lymphedema Likely source of sepsis and precipitating toxic shock syndrome As mentioned earlier in the Cardiovascular section, clindamycin is unique as an antibiotic for treatment of TSS in that it binds to the 50S ribosomal subunit of bacteria and directly suppresses synthesis of exotoxins like Toxic Shock Syndrome Toxin-1 (TSST-1) and enterotoxins produced by Streptococcus pyogenes Timeline of antibiotic regimen detailed below: 1. IV vancomycin dosed by pharmacy [12/22-12/25, discontinued due to MRSA(-)] 2. IV clindamycin 600 mg q8HR [12/22-01/01] 3. IV cefepime 2 gm q12HR [12/22-12/24, discontinued after TSS became favored diagnosis] 4. IV meropenem 1000 mg q8HR [12/24-01/01] Dx: -12/22 BCx (04/01) grew zaman-sensitive Streptococcus pyogenes (Group A Streptococcus) Rx: -Current active antibiotic regimen: IV meropenem 1000 mg q8HR [12/24-01/04] and IV clindamycin 600 mg q8HR [12/22-01/04] to complete a [id number]-nzoafm of antibiotics for treatment of toxic shock syndrome RRx: -Patient is on broad-spectrum coverage and still not improving with an uptrending WBC #UTI Dx: -UA suggestive of infection -UCx came back NGTD Disposition: Patient continues to meet criteria for ongoing ICU management due to continued need for pressors, intubation, and 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 DVT prophylaxis: Heparin 7500 q8HR GI prophylaxis: IV Protonix 40 mg qD Diet: Tube Feeds @ 20 mL / hr Pitts: Present Lines: Peripheral IV, Central IV, arterial line Antibiotics: IV meropenem 1000 mg q8HR [12/24-01/04] and IV clindamycin 600 mg q8HR [12/22-01/04] CODE STATUS: FULL Patient plan of care was discussed with the attending production clerk, Dr. Zion Dykes, DO Internal Medicine, PGY-1
[2024-12-26] MEDS: NAPH,KPH MBDB 1 PACKET (1.5 GM) NG (10:27)
[2024-12-26] MEDS: CLOTRIMAZOLE CR 1% 30 GM TUBE TOP ×2 (10:27→20:12)
--- NOTE | 2024-12-26 10:39 | PD.RESPRO ---
Documentation for date of: 12/26/24 Subjective Subjective Interval history: Patient seen and examined in ICU. Telemetry reviewed and a-fib RVR noted at 12/25 2330 rate 110-120s, amiodarone drip started and patient converted back to sinus at 0530. Rate was initially at sinus rhythm HR 70s, however this morning on exam, tele shows sinus tachycardia low 100s. Patient is mechanically ventilated and on Levophed and vasopressin with BP 80-100/60s. WBC 27.6, Hgb stable low 10.6, platelets now 24, Na 133, K 4.2, BUN 12, Cr 1.2, AG 17, lactic downtrended from 10 to 8.6 post CRRT, Mg1.9. Continue amiodarone drip, transition to PO once patient is able to swallow. Exam Vital Signs Temp Pulse Resp BP Pulse Ox O2 Del Method O2 Flow Rate 97.2 F 107 H 28 H 120/81 100 Mechanical Ventilation 10 12/26/24 08:00 12/26/24 10:15 12/26/24 06:30 12/26/24 10:15 12/26/24 10:15 12/26/24 08:00 12/24/24 11:22 FiO2 30 12/26/24 08:00 Narrative Exam GENERAL: intubated, vitals reviewed HEENT: NC/AT, trachea appears midline, androgenic hair distribution on the chin CARDIOVASCULAR: regular rhythm, tachycardic PULMONARY: symmetric chest rise, on vent, decreased air entry bilaterally due to body habitus ABDOMINAL: soft, non-distended, bowel sounds present EXTREMITIES: Severe left leg swelling with severe hyperkeratotic changes. There is also oozing of yellowish serous fluid with mild erythema specially on the L thigh. Right leg also has hyperkeratotic changes up to the mid espinoza of the right leg. NEURO: limited due to patient mental status and intubation Objective Labs 12/26/24 13:03 12/26/24 13:13 Labs: Laboratory Results - last 24 hr 12/25/24 12/25/24 12/25/24 12:23 15:59 16:08 WBC 16.3 H D RBC 4.04 Hgb 10.3 L Hct 31.8 L MCV 79 L MCH 25.5 MCHC 32.4 RDW Std Deviation 51.7 H Plt Count 30 L D Neut % (Auto) 76 Lymph % (Auto) 6 L [place] % (Auto) 4 Eos % (Auto) 0 Baso % (Auto) 0 Neut # (Auto) 12.4 H Lymph # (Auto) 0.9 L [place] # (Auto) 0.7 Eos # (Auto) 0.0 Baso # (Auto) 0.0 Immature Gran # (Auto) 2.25 H Absolute Nucleated RBC 0.11 H Immature Gran % 14 H Nucleated RBC % 1 H Smear Path Review PT INR APTT Fibrinogen D-Dimer Puncture Site Arterial Line ABG pH 7.41 ABG pCO2 37 ABG pO2 128 H D ABG HCO3 23 ABG O2 Saturation 100 H ABG Base Excess -1 FiO2 50 Sodium 133 L Potassium 3.8 Chloride 98 Carbon Dioxide 21.4 Anion Gap 14 BUN 16 Creatinine 1.2 Estim Creat Clear Calc 76.4 eGFR 53 L BUN/Creatinine Ratio 13 Glucose 72 L Calculated Osmolality 266 L Lactic Acid 8.3 H* 8.0 H* Calcium 7.6 L Corrected Calcium 9.0 Phosphorus Magnesium Total Bilirubin 1.3 H AST 66 H ALT 44 Alkaline Phosphatase 135 H Total Creatine Kinase Total Protein 6.2 Albumin 2.3 L Globulin 3.9 H Albumin/Globulin Ratio 0.6 L Misc Test Result Platelets confirmed Blood Type Antibody Screen Blood Bank Wristband ID Blood Bank Comment 12/25/24 12/25/24 12/25/24 18:07 19:55 21:08 WBC 17.1 H RBC 3.85 L Hgb 9.8 L Hct 30.1 L MCV 78 L MCH 25.5 MCHC 32.6 RDW Std Deviation 50.3 H Plt Count 21 L* D Neut % (Auto) 76 Lymph % (Auto) 6 L [place] % (Auto) 3 Eos % (Auto) 0 Baso % (Auto) 1 Neut # (Auto) 13.0 H Lymph # (Auto) 1.1 [place] # (Auto) 0.6 Eos # (Auto) 0.0 Baso # (Auto) 0.2 Immature Gran # (Auto) 2.33 H Absolute Nucleated RBC 0.10 H Immature Gran % 14 H Nucleated RBC % 1 H Smear Path Review Sent to Pathologist PT INR APTT Fibrinogen D-Dimer Puncture Site Arterial Line ABG pH 7.41 ABG pCO2 39 ABG pO2 123 H ABG HCO3 24 ABG O2 Saturation 99 H ABG Base Excess 0 FiO2 40 Sodium 134 L Potassium 3.4 Chloride 98 Carbon Dioxide 22.8 Anion Gap 13 BUN 11 Creatinine 1.1 Estim Creat Clear Calc 83.4 eGFR 59 L BUN/Creatinine Ratio 10 L Glucose 74 Calculated Osmolality 266 L Lactic Acid 7.8 H* 7.0 H* Calcium 7.9 L Corrected Calcium 9.3 Phosphorus Magnesium Total Bilirubin 1.2 AST 63 H ALT 42 Alkaline Phosphatase 139 H Total Creatine Kinase Total Protein 6.3 Albumin 2.2 L Globulin 4.1 H Albumin/Globulin Ratio 0.5 L Misc Test Result Platelets confirmed Blood Type B Positive Antibody Screen NEGATIVE Blood Bank Wristband ID Yes Blood Bank Comment PLATP Ready 12/26/24 12/26/24 12/26/24 00:31 04:10 04:40 WBC 27.6 H D RBC 4.20 Hgb 10.6 L Hct 33.3 L MCV 79 L MCH 25.2 MCHC 31.8 RDW Std Deviation 52.3 H Plt Count 24 L* Neut % (Auto) 76 Lymph % (Auto) 6 L [place] % (Auto) 4 Eos % (Auto) 0 Baso % (Auto) 0 Neut # (Auto) 20.9 H Lymph # (Auto) 1.6 [place] # (Auto) 1.1 H Eos # (Auto) 0.0 Baso # (Auto) 0.0 Immature Gran # (Auto) 3.97 H Absolute Nucleated RBC 0.16 H Immature Gran % 14 H Nucleated RBC % 1 H Smear Path Review PT 13.4 H INR 1.2 APTT 51.1 H Fibrinogen 525 H D-Dimer 3610 H Puncture Site Arterial Line ABG pH 7.36 ABG pCO2 37 ABG pO2 99 D ABG HCO3 21 ABG O2 Saturation 98 ABG Base Excess -4 L FiO2 21 Sodium 134 L 133 L Potassium 4.4 D 4.2 Chloride 98 96 L Carbon Dioxide 22.5 20.0 Anion Gap 14 17 H BUN 11 12 Creatinine 0.9 1.2 Estim Creat Clear Calc 101.9 76.4 eGFR > 60 53 L BUN/Creatinine Ratio 12 10 L Glucose 98 86 Calculated Osmolality 267 L 265 L Lactic Acid 7.4 H* Calcium 7.9 L 8.3 Corrected Calcium 9.6 9.7 Phosphorus 2.3 L Magnesium 1.9 Total Bilirubin 1.2 1.1 AST 68 H 70 H ALT 42 46 Alkaline Phosphatase 161 H D 179 H Total Creatine Kinase Total Protein 5.6 L 6.4 Albumin 1.9 L 2.3 L Globulin 3.7 H 4.1 H Albumin/Globulin Ratio 0.5 L 0.6 L Misc Test Result Platelets confirmed Blood Type Antibody Screen Blood Bank [facility] Blood Bank Comment 12/26/24 12/26/24 05:10 08:59 WBC RBC Hgb Hct MCV MCH MCHC RDW Std Deviation Plt Count Neut % (Auto) Lymph % (Auto) [place] % (Auto) Eos % (Auto) Baso % (Auto) Neut # (Auto) Lymph # (Auto) [place] # (Auto) Eos # (Auto) Baso # (Auto) Immature Gran # (Auto) Absolute Nucleated RBC Immature Gran % Nucleated RBC % Smear Path Review PT INR APTT Fibrinogen D-Dimer Puncture Site ABG pH ABG pCO2 ABG pO2 ABG HCO3 ABG O2 Saturation ABG Base Excess FiO2 Sodium Potassium Chloride Carbon Dioxide Anion Gap BUN Creatinine Estim Creat Clear Calc eGFR BUN/Creatinine Ratio Glucose Calculated Osmolality Lactic Acid 10.0 H* 8.6 H* Calcium Corrected Calcium Phosphorus Magnesium Total Bilirubin AST ALT Alkaline Phosphatase Total Creatine Kinase 225 H Total Protein Albumin Globulin Albumin/Globulin Ratio Misc Test Result Blood Type Antibody Screen Blood Bank [facility] Blood Bank Comment ABG Interpretation ABG results: 12/22/24 12/22/24 12/23/24 16:49 23:40 13:05 ABG pH 7.39 7.29 L D ABG pCO2 33 37 ABG pO2 60 L 73 L ABG HCO3 20 18 L ABG O2 Saturation 92 94 ABG Base Excess -5 L -8 L VBG pH 7.35 VBG pCO2 37 VBG pO2 27 VBG Base Excess -5 L 12/24/24 12/24/24 12/24/24 08:54 17:12 17:19 ABG pH 7.25 L 7.16 L* ABG pCO2 34 36 ABG pO2 166 H D 127 H D ABG HCO3 15 L 13 L ABG O2 Saturation 100 H 99 H ABG Base Excess -11 L -15 L VBG pH 7.12 L VBG pCO2 42 VBG pO2 44 VBG Base Excess -15 L 12/24/24 12/24/24 12/25/24 19:45 22:40 04:47 ABG pH 7.10 L* 7.21 L D 7.36 D ABG pCO2 50 H D 38 D 37 ABG pO2 249 H D 249 H 191 H D ABG HCO3 15 L 15 L 21 ABG O2 Saturation 100 H 100 H 100 H ABG Base Excess -14 L -12 L -4 L VBG pH VBG pCO2 VBG pO2 VBG Base Excess 12/25/24 12/25/24 12/26/24 15:59 19:55 04:10 ABG pH 7.41 7.41 7.36 ABG pCO2 37 39 37 ABG pO2 128 H D 123 H 99 D ABG HCO3 23 24 21 ABG O2 Saturation 100 H 99 H 98 ABG Base Excess -1 0 -4 L VBG pH VBG pCO2 VBG pO2 VBG Base Excess Quality Measures Quality Measures none Assessment & Plan Assessment Current Active Medications: Generic Name Dose Route Start Last Admin Trade Name Freq PRN Reason Stop Dose Admin Acetaminophen 650 mg 12/22/24 17:09 12/23/24 10:19 Acetaminophen 325 Mg Tablet PO 01/21/25 17:08 650 mg Q6H PRN Administration Pain 1-3 and/or Fever >100.1 Albuterol/Ipratropium 3 ml 12/23/24 09:36 Albuterol/Ipratropium (Duoneb) Rt Ginny 3 Ml Nebu INH 01/22/25 07:44 Q8HRRT PRN wheezing Clotrimazole 0 gm 12/23/24 09:00 12/26/24 10:27 Clotrimazole Cr 1% 30 Gm Tube TOP 01/22/25 08:59 1 applicatio BID TRACY Administration Dextrose 25 ml 12/22/24 17:09 12/25/24 23:07 Dextrose 50%-Water Inj 50 Ml Syringe IV 01/21/25 17:08 25 ml Q15MIN PRN Administration BG 50-70 responsive npo pt Dextrose 50 ml 12/22/24 17:09 12/25/24 14:03 Dextrose 50%-Water Inj 50 Ml Syringe IV 01/21/25 17:08 50 ml Q15MIN PRN Administration BG <50 OR BG <70 & pt unresponsive Glucagon 1 mg 12/22/24 17:09 Glucagon Inj 1 Mg Vial IM Q15MIN PRN BG <70, and no IV access Heparin Sodium (Porcine) 7,500 unit 12/23/24 14:00 12/26/24 05:20 Heparin Sod Inj 5000 Unit/Ml Vial SC 01/06/25 13:59 Not Given Q8HR TRACY Hydrocortisone Sodium Succinate 50 mg 12/24/24 18:00 12/26/24 05:04 Hydrocortisone Sod Succ Inj 100 Mg 2 Ml Vial IV 01/23/25 17:59 50 mg Q6HR TRACY Administration Sodium Chloride 1,000 mls @ 150 mls/hr 12/23/24 01:00 12/23/24 06:45 Ns IV 01/22/25 00:59 0 mls/hr On Hold: 12/23/24 06:11 .Q6H40M TRACY Infusion Norepinephrine Bitartrate 16 mg in 250 mls @ 7.369 mls/hr 12/23/24 07:12 12/26/24 07:28 Levophed In Ns 16mg/250ml IV 01/22/25 07:11 0.05 mcg/kg/min .Q24H PRN 7.369 mls/hr PER protocol Titration Protocol 0.05 MCG/KG/MIN Clindamycin/Sodium Chloride 600 mg in 50 mls @ 100 mls/hr 12/23/24 09:35 12/26/24 05:01 Cleocin/Ns Ivpb IV 12/30/24 09:34 100 mls/hr Q8HR TRACY Administration Propofol 1,000 mg in 100 mls @ 4.722 mls/hr 12/24/24 16:53 12/26/24 06:00 Diprivan Ivpb IV 01/23/25 16:52 5 mcg/kg/min .[id number] PRN 4.722 mls/hr Per Protocol Titration Protocol 5 MCG/KG/MIN Fentanyl Citrate 2,500 mcg in 250 mls @ 2.5 mls/hr 12/24/24 16:55 12/26/24 06:00 Sublimaze Inj 2,500 Mcg/250 Ml Bag IV 12/29/24 16:54 75 mcg/hr .Q24H PRN 7.5 mls/hr PER PROTOCOL Titration Protocol 25 MCG/HR Vasopressin/Sodium Chloride 20 unit in 100 mls @ 9 mls/hr 12/24/24 17:09 Vasostrict/Ns Ivpb IV 01/23/25 17:08 .Q11H7M PRN PER PROTOCOL Protocol 0.03 UNIT/MIN Meropenem 1,000 mg/ Sodium 50 mls @ 100 mls/hr 12/25/24 17:00 12/26/24 05:06 Chloride IV 01/01/25 16:59 100 mls/hr Q8HR TRACY Administration Amiodarone HCl/Dextrose 360 mg in 200 mls @ 33.333 mls/hr 12/25/24 23:35 12/26/24 06:52 Nexterone Ivpb IV 12/26/24 11:34 33.333 mls/hr .Q6H TRACY Administration Insulin Human Lispro 0 unit 12/22/24 21:00 12/26/24 07:27 Insulin Lispro (Admelog) 1 Unit/0.01 Ml Unit SC 01/21/25 20:59 Not Given ACHS TRACY Protocol Ondansetron HCl 4 mg 12/22/24 17:09 Ondansetron Inj 2 Mg/Ml Inj 2 Ml IVP 01/21/25 17:08 Q6H PRN NAUSEA OR VOMITING Protocol Pantoprazole Sodium 40 mg 12/25/24 11:15 12/26/24 10:27 Pantoprazole Inj 40 Mg Vial IVP 01/24/25 11:14 40 mg QDAY TRACY Administration Pharmacy Consult 1 each 12/23/24 11:15 Pharmacy Renal Dose Adjustment 1 Ea XX 01/22/25 11:14 PRN PRN CONSULT Sennosides 1 tab 12/22/24 17:09 Senna Tablet PO 01/21/25 17:08 QDAY PRN constipation Protocol Plan Summary:A 54-year-old female patient with past medical history of insulin-dependent diabetes mellitus, bilateral lower limb lymphedema, lipedema, asthma, epilepsy, morbid obesity, wheelchair-bound for 9 years, was brought to the ED on 22 December due to left lower extremity pain and clear cirrhosis fluid oozing. Patient was admitted to the ICU for distributive shock. Cardiology team was consulted because of new onset A-fib with RVR and newly diagnosed CHF. #Newly diagnosed HFrEF (40-45%, 11/2024) #New onset A-fib with RVR likely induced by shock state #Streptococcus pyogenes bacteremia 2/2 LLE cellulitis Patient presented with sepsis secondary to left leg cellulitis, her condition worsened to distributive shock. During her stay she developed A-fib with RVR, with no known hx of afib, we started the patient on amiodarone drip. Even though her body habitus echo was done and showed ejection fraction of 40 to 45%. With normal RV function. BNP was 204 which most likely skewed by patient obesity. Troponin was negative. 12/22/24 Echo showed Over all poor images due to body habitus and technically difficult study. Normal left ventricular size and function.Stage I diastolic dysfunction. Estimated ejection fraction is 40-45%. Normal right ventricular size and function. RVSP 39 mm Hg with RAP 8. Mild pulmonary HTN Trace MR and Mild TR. TDS due to patient morbid and laying on supine view, couldn't move. (patient had open wounds under breast) 12/25/2024 patient was started on CRRT due to worsening lactic acidosis and kidney function, blood culture growing Streptococcus pyogenes. Plan ? Continue amiodarone 1 mg/h if her A-fib continue to be persistent, patient this AM converted to sinus with rate of 70s, however now in sinus tachycardia 100s and can transition to amiodarone p.o. 200 mg if patient tolerate oral feed. ? Due to patient condition no invasive cardiac procedure will be done at this time ? Strict in and out ? Keep potassium and magnesium above 4 and 2 respectively within normal range ? Will start the patient on GDMT as soon as her general condition improved #Distributive shock most likely secondary to sepsis #Sepsis secondary to left leg cellulitis #Toxic shock syndrome #Lower extremity lymphedema Plan ? Patient was started on Clindamycin, meropenem by the primary team, patient was also given IgG immunoglobulin ? Patient on norepinephrine drip and vasopressin for distributive shock #History of seizure disorder Patient on antiseizure meds #Concern of DIC #History of COPD Supplemental oxygen, BiPAP as needed, DuoNebs #Elevated bilirubin, elevated AST, hypoalbuminemia Secondary to toxic shock syndrome versus septic shock Follow primary team recommendations #Lactic acidosis improving s/p CRRT #YOU #Non-anion gap metabolic acidosis Thank you for your consultation, please do not hesitate to reach out if you have any question or concern Patient's plan and care discussed with my attending, Dr. Sammi Evans, DO Internal Medicine PGY-1 Attending Provider Attestation/Addendum I have personally seen and examined the patient separately on the above date of service and discussed the plan of care with the resident. I reviewed the resident Dr. Bertha Evans consultation progress note and agree with the resident findings and plan in the note above and have also edited the documentation to reflect my findings and plan. Alex Chapa M.D. Interventional Cardiology
--- NOTE | 2024-12-26 10:47 | PC.CM ---
Addendum entered by Vishal Cantu RN 12/26/24 11:26: 1118-Received call from [facility] Yost, they are at capacity for ICU, patient declined for transfer. Addendum entered by Vishal Cantu RN 12/26/24 11:13: 1110-Images sent to [facility] via [employer]. Original Note: Received call from Dr. Verduzco requesting to initiate transfer for general surgery, patient has lower limb cellulitis and toxic shock syndrome. Dr. Hines was consulted but is unable to manage patient at this time, she recommended transfer, and if unable to transfer she will consult with Dr. Collier tomorrow for possible intervention then. Transfer packet has been created and images placed on CD.
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
[2024-12-26] MEDS: HEPARIN SOD INJ 1000 UNIT/ML VIAL 10 ML 100 UNIT INDWELLCAT ×12 (13:01→23:59)
--- NOTE | 2024-12-26 13:18 | PD.SURCONS ---
HPI Consult details History of present illness: 54F with DMII, asthma, super morbid obesity with chronic lymphedema who was admitted 12/22/24 with malaise and LLE pain. Pt reported she had sustained an injury to the leg with a resulting wound that she had difficulty caring for. Pt was admitted to med surg but was transferred to ICU for hypotension, is on single-dose pressor support which has overall decreased, is intubated on FiO2 30% and as of yesterday was started on CRRT. Since admission, [employer] team has noted worsening appearance of the LLE with spreading erythema and areas of necrotic skin, as well as persistent lactic acidosis for which reason I was consulted today Pt underwent CT LLE on 12/23 which showed extensive cellulitis of the LLE but no drainable collection or osteomyelitis. Her initial blood culture grew group A strep but subsequent cultures have been negative. As of today WBC is at 27 from 17, lactate is 8.6 from a peak of 10 Review of Systems Review of Systems ROS Unobtainable: unobtainable due to endotracheal tube Meds Home Medications and Allergies Home Medications ?Medication ?Instructions ?Recorded ?Confirmed ?Type carbamazepine 100 mg 100 mg PO BID 09/23/20 09/23/20 History tablet,extended release,12 hr albuterol sulfate 90 mcg/actuation 2 puff inhalation Q4H PRN 12/23/24 12/23/24 History aerosol inhaler shortness of breath or wheezing atorvastatin 40 mg tablet 40 mg PO ONCE HS 12/23/24 12/23/24 History docusate sodium 100 mg capsule 100 mg PO DAILY PRN constipation 12/23/24 12/23/24 History ergocalciferol (vitamin D2) 1,250 50,000 unit PO .once a week 12/23/24 12/23/24 History mcg (50,000 unit) capsule ferrous sulfate 325 mg (65 mg 325 mg PO DAILY 12/23/24 12/23/24 History iron) tablet (FeroSul) insulin aspart U-100 100 unit/mL 20 unit subcut .with meals 12/23/24 12/23/24 History (3 mL) subcutaneous pen losartan 50 mg tablet 50 mg PO DAILY 12/23/24 12/23/24 History omeprazole 20 mg capsule,delayed 20 mg PO HS 12/23/24 12/23/24 History release tretinoin 0.025 % topical cream applic topical DAILY UD 12/23/24 History Allergies Allergy/AdvReac Type Severity Reaction Status Date / Time aspirin Allergy Severe Difficulty Verified 04/18/22 18:45 Breathing codeine Allergy Severe Difficulty Verified 04/18/22 18:45 Breathing levetiracetam (From [facility] [place] Allergy Severe Difficulty Verified 04/18/22 18:45 Breathing morphine Allergy Severe Difficulty Verified 04/18/22 18:45 Breathing Penicillins Allergy Severe Difficulty Verified 04/18/22 18:45 Breathing Exam Vital Signs Temp Pulse Resp BP Pulse Ox O2 Del Method O2 Flow Rate 98.3 F 113 H 28 H 87/65 L 100 Mechanical Ventilation 10 12/26/24 12:34 12/26/24 13:00 12/26/24 12:34 12/26/24 13:00 12/26/24 12:45 12/26/24 12:00 12/24/24 11:22 FiO2 30 12/26/24 12:34 Constitutional Constitutional: chronically ill appearing Routine Extremities Exam Comments: right and left lower extremities with lymphedema. The left lower extremity has cellulitis of the lateral proximal thigh extending to the left backside, and the more distal thigh and leg have areas of necrotic skin as well as bullae some of which are draining clear fluid Results Results: Laboratory Laboratory results: results reviewed Results: Imaging Imaging narrative: CT LLE Assessment & Plan Plan 54F with DMII, asthma, super morbid obesity with chronic lymphedema who was admitted 12/22/24 with malaise and LLE pain, with hypotension requiring low dose pressor support and renal failure requiring CRRT. On exam pt does have areas of necrotic skin of the LLE as well as bullae, with cellulitis extending to the proximal leg and even gluteal region. In my opinion a definitive surgical intervention could require above knee amputation, even to the point of disarticulating the hip. Unfortunately I do not have experience with this procedure so I recommended evaluation for transfer
--- NOTE | 2024-12-26 13:25 | PC.SS ---
SS update: intubated, on iv antibiotics.
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
[2024-12-26 13:43] LABS: Basophils # (Auto) 0.0 Thou/mm3 (0.0-0.2); Basophils % (Auto) 0 % (0-2.5); Eosinophils # (Auto) 0.0 Thou/mm3 (0.0-0.5); Eosinophils % (Auto) 0 % (0-10); Hematocrit 31.6 % (36.0-46.0); Hemoglobin 10.2 g/dL (12.0-16.0); Immature Granulocytes Auto 3.94 Thou/mm3 (0.00-0.00); Lymphocytes # (Auto) 1.6 Thou/mm3 (1.0-4.8); Lymphocytes % (Auto) 5 % (10-50); Mean Corpuscular HGB Conc 32.3 g/dl (31.0-37.0); Mean Corpuscular Hemoglobin 25.7 pg (25.0-35.0); Mean Corpuscular Volume 80 fL (80-100); Monocytes # (Auto) 1.3 Thou/mm3 (0.0-0.8); Monocytes % (Auto) 4 % (0-12); Neutrophils # (Auto) 23.2 Thou/mm3 (1.8-7.7); Neutrophils % (Auto) 77 % (37-80); Nucleated Red Blood Cell # 0.16 Thou/mm3 (0.00-0.00); Nucleated Red Blood Cell % 1 /100 WBC (0); RDW Standard Deviation 54.1 fL (36.4-46.3); Red Blood Count 3.97 Miln/mm3 (4.00-5.20); White Blood Count 30.1 Thou/mm3 (3.6-11.0)
[2024-12-26 13:46] LABS: Lactate (Lactic Acid) 7.3 mMol/L (0.4-2.0)
[2024-12-26 13:57] LABS: Platelet Count 25 Thou/mm3 (140-440)
[2024-12-26 14:22] LABS: Slide Review Platelets confirmed
[2024-12-26 14:43] LABS: Alanine Aminotransferase 48 U/L (10-49); Albumin, Serum 2.2 gm/dL (3.5-5.0); Albumin/Globulin Ratio 0.6 (1.2-2.2); Alkaline Phosphatase 221 U/L (46-116); Anion Gap 14 (7-16); Aspartate Amino Transferase 66 U/L (0-34); BUN/Creatinine Ratio 9 Ratio (12-20); Bilirubin,Total 1.0 mg/dL (0.3-1.2); Blood Urea Nitrogen 13 mg/dL (9-23); Calcium 8.4 mg/dL (8.3-10.6); Calcium (Corrected) 9.8 mg/dL (8.5-10.1); Carbon Dioxide 22.6 mMol/L (20.0-31.0); Chloride 97 mMol/L (98-107); Creatinine (Component) 1.4 mg/dL (0.6-1.3); Estimated Creatinine Clearance 65.8 mL/min (>60); Globulin 3.8 gm/dL (2.3-3.5); Glucose 117 mg/dL (74-106); Osmolality,Calculated 269 (275-295); Potassium 3.7 mMol/L (3.4-5.1); Sodium 134 mMol/L (136-145); Total Protein 6.0 gm/dL (5.7-8.2); eGFR 44 See Note
--- NOTE | 2024-12-26 15:08 | PC.CC ---
Addendum entered by Kylah Delatorre RN 12/26/24 17:47: 1727-[facility] called, Dr. Kelly Clemente, declined stating no need for sx Original Note: 1217-called [facility], they declined-at capacity, can call back to check in 24 hours. 1223-called [facility], they are requesting sx notes. None in chart at this time. 1240-Spoke to Dr. Donovan 1 Surgeon consulted, declined. Consulted Dr. Hines- doctor Flora is declining at this time due to lack of experience. 1315-SPoke to Dr. Hines, asked to write note, she will enter a note. 1445- Dr. Hines's note in, faxed to [facility]. 1500-[facility] called, received report, they will present to Ortho due to Flora's report that mentions possible amputation or disarticulating the hip.
[2024-12-26 16:43] LABS: Reflex Lactate? Y
[2024-12-26 17:23] LABS: Lactic Acid, 3 HR 5.8 mMol/L (0.4-2.0)
[2024-12-26] MEDS: PROPOFOL 1,000 MG IVPB 1,000 MG/100 ML VIAL 4.722 MG IV (17:38)
[2024-12-26 18:36] LABS: Lactate (Lactic Acid) 5.5 mMol/L (0.4-2.0)
[2024-12-26 18:55] LABS: Alanine Aminotransferase 50 U/L (10-49); Albumin, Serum 2.2 gm/dL (3.5-5.0); Albumin/Globulin Ratio 0.6 (1.2-2.2); Alkaline Phosphatase 216 U/L (46-116); Anion Gap 11 (7-16); Aspartate Amino Transferase 60 U/L (0-34); BUN/Creatinine Ratio 10 Ratio (12-20); Bilirubin,Total 1.1 mg/dL (0.3-1.2); Blood Urea Nitrogen 12 mg/dL (9-23); Calcium 8.5 mg/dL (8.3-10.6); Calcium (Corrected) 9.9 mg/dL (8.5-10.1); Carbon Dioxide 24.8 mMol/L (20.0-31.0); Chloride 96 mMol/L (98-107); Creatinine (Component) 1.2 mg/dL (0.6-1.3); Estimated Creatinine Clearance 76.8 mL/min (>60); Globulin 4.0 gm/dL (2.3-3.5); Glucose 121 mg/dL (74-106); Osmolality,Calculated 265 (275-295); Potassium 3.5 mMol/L (3.4-5.1); Sodium 132 mMol/L (136-145); Total Protein 6.2 gm/dL (5.7-8.2); eGFR 53 See Note
[2024-12-26] MEDS: Norepinephrine/NS 16mg/250ml 16 MG/250 ML BAG 4.421 MG IV (19:06)
[2024-12-26 19:12] LABS: Phosphorous 1.9 mg/dL (2.4-5.1)
[2024-12-26] MEDS: fentaNYL 2,500 MCG/250 ML BAG 2,500 MCG/250 ML BAG 12.5 MCG IV (19:20)
[2024-12-26 21:31] LABS: Reflex Lactate? Y
[2024-12-26 22:10] LABS: Lactic Acid, 3 HR 5.1 mMol/L (0.4-2.0)
[2024-12-27] VITALS (113 sets, daily range): BP systolic 66–134; BP diastolic 21–82; PULSE 106–115; RESP 14–35; TEMP 36.1–36.8; O2SAT 90–100; BMI 67.7
[2024-12-27 00:46] LABS: Lactate (Lactic Acid) 4.9 mMol/L (0.4-2.0)
[2024-12-27] MEDS: HEPARIN SOD INJ 1000 UNIT/ML VIAL 10 ML 100 UNIT INDWELLCAT ×20 (01:00→23:57)
[2024-12-27 01:08] LABS: Alanine Aminotransferase 48 U/L (10-49); Albumin, Serum 2.2 gm/dL (3.5-5.0); Albumin/Globulin Ratio 0.6 (1.2-2.2); Alkaline Phosphatase 248 U/L (46-116); Anion Gap 12 (7-16); Aspartate Amino Transferase 60 U/L (0-34); BUN/Creatinine Ratio 12 Ratio (12-20); Bilirubin,Total 1.1 mg/dL (0.3-1.2); Blood Urea Nitrogen 11 mg/dL (9-23); Calcium 8.6 mg/dL (8.3-10.6); Calcium (Corrected) 10.0 mg/dL (8.5-10.1); Carbon Dioxide 26.4 mMol/L (20.0-31.0); Chloride 96 mMol/L (98-107); Creatinine (Component) 0.9 mg/dL (0.6-1.3); Estimated Creatinine Clearance 102.3 mL/min (>60); Globulin 3.5 gm/dL (2.3-3.5); Glucose 127 mg/dL (74-106); Osmolality,Calculated 269 (275-295); Potassium 3.4 mMol/L (3.4-5.1); Sodium 134 mMol/L (136-145); Total Protein 5.7 gm/dL (5.7-8.2); eGFR > 60 See Note
[2024-12-27] MEDS: POTASSIUM CHL 10 mEq IVPB 10 MEQ/100 ML BAG 100 MEQ IV ×4 (01:18→04:16)
[2024-12-27] MEDS: AMIODARONE 360 MG IVPB 360 MG/200 ML BAG 33.333 MG IV ×3 (02:33→16:07)
[2024-12-27 03:44] LABS: Reflex Lactate? Y
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
[2024-12-27 04:18] LABS: Base Excess 2 (-3-3); HCO3 26 mEq/L (20-26); Inspired Oxygen, FIO2 30 %; O2 Saturation 98 % (91-98); PCO2 36 mmHg (32.0-48.0); PO2 82 mmHg (83-108); Puncture Site Arterial Line; pH, Arterial 7.47 (7.35-7.45)
[2024-12-27 04:19] LABS: Allen Test Not Performed
[2024-12-27] MEDS: HYDROCORTISONE SOD SUCC INJ 100 MG 2 ML VIAL 50 MG IV ×4 (05:09→23:12)
[2024-12-27] MEDS: CLINDAMYCIN/NS 600 MG IVPB 600 MG/50 ML BAG 100 MG IV ×3 (05:12→21:20)
[2024-12-27] MEDS: MEROPENEM INJ 1,000 MG in SODIUM CHLORIDE 0.9% (Popper) 50 ML 100 MG IV ×3 (05:14→21:21)
[2024-12-27 05:43] LABS: Lactic Acid, 3 HR 4.7 mMol/L (0.4-2.0)
[2024-12-27 05:52] LABS: Basophils # (Auto) 0.0 Thou/mm3 (0.0-0.2); Basophils % (Auto) 0 % (0-2.5); Eosinophils # (Auto) 0.0 Thou/mm3 (0.0-0.5); Eosinophils % (Auto) 0 % (0-10); Hematocrit 30.6 % (36.0-46.0); Hemoglobin 10.0 g/dL (12.0-16.0); Immature Granulocytes Auto 3.80 Thou/mm3 (0.00-0.00); Lymphocytes # (Auto) 2.3 Thou/mm3 (1.0-4.8); Lymphocytes % (Auto) 7 % (10-50); Mean Corpuscular HGB Conc 32.7 g/dl (31.0-37.0); Mean Corpuscular Hemoglobin 25.6 pg (25.0-35.0); Mean Corpuscular Volume 78 fL (80-100); Monocytes # (Auto) 1.3 Thou/mm3 (0.0-0.8); Monocytes % (Auto) 4 % (0-12); Neutrophils # (Auto) 25.7 Thou/mm3 (1.8-7.7); Neutrophils % (Auto) 78 % (37-80); Nucleated Red Blood Cell # 0.11 Thou/mm3 (0.00-0.00); Nucleated Red Blood Cell % 0 /100 WBC (0); RDW Standard Deviation 52.1 fL (36.4-46.3); Red Blood Count 3.91 Miln/mm3 (4.00-5.20); White Blood Count 33.1 Thou/mm3 (3.6-11.0)
[2024-12-27 06:00] LABS: Platelet Count 26 Thou/mm3 (140-440)
[2024-12-27 06:09] LABS: Alanine Aminotransferase 51 U/L (10-49); Albumin, Serum 2.1 gm/dL (3.5-5.0); Albumin/Globulin Ratio 0.6 (1.2-2.2); Alkaline Phosphatase 242 U/L (46-116); Anion Gap 10 (7-16); Aspartate Amino Transferase 62 U/L (0-34); BUN/Creatinine Ratio 11 Ratio (12-20); Bilirubin,Total 1.2 mg/dL (0.3-1.2); Blood Urea Nitrogen 9 mg/dL (9-23); Calcium 8.8 mg/dL (8.3-10.6); Calcium (Corrected) 10.3 mg/dL (8.5-10.1); Carbon Dioxide 27.0 mMol/L (20.0-31.0); Chloride 96 mMol/L (98-107); Creatinine (Component) 0.8 mg/dL (0.6-1.3); Estimated Creatinine Clearance 118.4 mL/min (>60); Globulin 3.6 gm/dL (2.3-3.5); Glucose 118 mg/dL (74-106); Magnesium 1.7 mg/dL (1.6-2.6); Osmolality,Calculated 266 (275-295); Phosphorous 1.7 mg/dL (2.4-5.1); Potassium 3.8 mMol/L (3.4-5.1); Sodium 133 mMol/L (136-145); Total Protein 5.7 gm/dL (5.7-8.2); eGFR > 60 See Note
[2024-12-27] MEDS: Magnesium Sulfate 2 GM Ivpb 2 GM/50 ML BAG IV (06:39)
[2024-12-27 06:42] LABS: Slide Review Platelets confirmed
[2024-12-27] MEDS: PROPOFOL 1,000 MG IVPB 1,000 MG/100 ML VIAL 9.444 MG IV ×2 (08:00→17:08)
[2024-12-27] MEDS: CLOTRIMAZOLE CR 1% 30 GM TUBE TOP ×2 (08:34→21:03)
[2024-12-27] MEDS: SOD PHOS ADDITIVE 22.5 MMOL in SODIUM CHLORIDE 0.9% 500 ML 500 ML 82.778 MMOL IV (08:41)
[2024-12-27 10:05] LABS: Base Excess 2 (-3-3); HCO3 27 mEq/L (20-26); Inspired Oxygen, FIO2 30 %; O2 Saturation 99 % (91-98); PCO2 41 mmHg (32.0-48.0); PO2 97 mmHg (83-108); pH, Arterial 7.42 (7.35-7.45)
[2024-12-27 10:06] LABS: Allen Test Performed/OK; Puncture Site Left Radial
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
--- NOTE | 2024-12-27 11:13 | PC.SS ---
Update: Patient is intubated/sedated. Receiving pressor support, patient receiving IV ABX (2). OG-Tube in place for feeds. Patient is in position of [place] catheter. No fever, patient receiving dialysis today. Patient is not established with out patient dialysis. Dr. Sorto is consulting. Cardiology and surgery on consulting. Wound care providing services to the patient.
--- NOTE | 2024-12-27 12:17 | ESPR_ITS ---
<Statement entered by Michael Verduzco MD - 12/27/24 17:05> I saw and examined patient personally and supervised PGY 1 resident, Dr. Dykes with formulating a management plan. I agree with the documentation with the exceptions as listed below. 54-year-old female with past medical history of insulin-dependent DM type II, lymphedema, asthma, morbidly obese, history of epilepsy, nonambulatory for 9 years, wheelchair-bound was initially admitted to the medical floor for sepsis secondary to cellulitis of the left lower extremity. Over the course of the night, her clinical condition deteriorated, with concerns for distributive shock in the setting of sepsis, Despite initial fluid resuscitation, she remained persistently hypotensive, requiring transfer to the ICU for vasopressor support and close monitoring . Problem list: 1. Distributive shock secondary to toxic shock syndrome 2. Atrial fibrillation with RVR on amiodarone infusion 3. Acute systolic and diastolic dysfunction with mildly reduced ejection fraction [40-45%] 4. Acute respiratory failure requiring intubation and mechanical ventilation secondary to severe metabolic acidosis 5. Acute renal failure secondary to shock and ATN on CRRT 6. Lactic acidosis secondary to toxic shock syndrome - improving 7. NAGMA 8. Transaminitis 9. Coagulopathy secondary to toxic shock syndrome?possible DIC 10. Thrombocytopenia due to severe sepsis 11. Leukocytosis 12. 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 Strep pyogenes bacteremia 15. History of seizures Yesterday transfer was initiated for surgical evaluation for necrotizing skin infection of b/l lower limbs. In-house general surgeon, Dr. Hines assessed the patient and said patient may possibly need de-articulation at the hip which she does not have experience with. Patient was rejected at four tertiary centers for transfer. Today the progression of patient's skin lesion has slowed down and still is distal to her hips. For this reason we are not actively pursuing transfer or surgical intervention at this point. Punch biopsy of skin was also taken today to confirm purpura fulminans. For patient's toxic shock syndrome she received a total 4 days of vancomycin IV from 12/22 through 12/25, 3 days of cefepime 2 g IV twice daily from 12/22 to 12/24, and continues to be on clindamycin IV [12/22 - 01/01] and meropenem IV from [12/24- 01/01] to complete a total of 14 days. She continues to be on stress dose hydrocortisone 50 mg IV every 6 hourly started on [12/24? . 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 Do not hold heparin unless patient develops active bleeding or platelets decreased to less than 15. Patient's daughter, Sonollie updated on patient's clinical status, current management plan and poor prognosis including high risk of deterioration and . All questions asked were appropriately answered. Plan of care discussed with Attending Dr. Zion Verduzco MD PGY 2 Disclaimer: This note was dictated by speech recognition. Minor errors in field marketing team leader may be present due to voice recognition software. Documentation for date of: 12/27/24 Subjective Subjective Interval history: 54-year-old female with past medical history of prior NC?, Insulin-dependent type 2 diabetes, lymphedema, lipedema, asthma, epilepsy, morbid obesity, nonambulatory for 9 years, wheelchair-bound presenting to the ED on 12/22 with left lower extremity pain and oozing. Patient states that about 3 weeks ago she slammed her left leg on a brick wall and ever since that time her left leg has progressively worsened and started oozing. Patient lives at home and is largely immobile and requires spring setter in the form of her grandson who takes care of her. Patient has not been seen by outpatient wound care as she says her motorized wheelchair has been broken. Patient also states that she has had a heart attack in the past but has never followed up with cardiology. Patient also has asthma but she denies having any shortness of breath at this time, uses albuterol twice a week. Medical history: As stated above Surgical history: Denies Allergies: Aspirin, codeine, Keppra, morphine, penicillin causes dyspnea Medications: Pending med rec Family history: Patient's mother and grandmother from breast cancer, denies having any family history of heart attack or stroke Social history: Patient lives at home, grandson spring setter, denies any alcohol, tobacco or illicit drug use ROS: All 12 systems assessed and the patient denies unless otherwise stated in HPI In the ED, patient presented mildly hypotensive 92/56, heart rate of 92, respiratory rate of 18, afebrile satting 96 on room air. Pertinent lab findings include WBC of 5.8, potassium 3.1, creatinine 1.8, eGFR of 33, lactic acid initially 7.1 uptrending to 8.0, T. bili of 2.2, AST 21, ALT 14, BNP of 385, Pro-Umberto of 87. Urinalysis shows signs of urinary tract infection. Venous Doppler study is negative for DVT, chest x-ray does not show any active disease and tibia/fibula x-ray shows no acute fracture. Patient was admitted to floors for sepsis secondary to cellulitis . At midnight [employer] was called due to hypotension, despite aggressive fluid resuscitation patient was remained persistent hypotensive, however nursing staff was having a hard time to obtain accurate measurement due to body habitus. Repeat labs did revealed lactic acidosis which did not improved even after 5 L of fluids, Cheetah monitor was placed, patient found to be not fluid responsive. At this point decision was made to upgrade patient to ICU for pressor support. Interval History 12/23/24: Overnight patient had no further events. Input 5 L, output 0. This a.m. IV access infusing norepinephrine extravasated and was removed. Patient complains of mild SOB at rest and also 9/10 constant left leg pain. Labs showed Hb 12.2, PLT 149, BUN 14, CR 2, glucose 84. Lactic acid down trended to 5.6 from 6, Mg 1.5, CK 515, T. bili 2. PTT 33.7, PT 16.7, INR 1.6, fibrinogen 560, D-dimer 3780. Blood cultures growing GPC preliminary. CT of the lower leg showed extensive lymphedema with cellulitis. No signs of osteomyelitis or necrotizing fasciitis. Repleted with magnesium sulfate 4 g IV x 1. Started on clindamycin, renally dosed for toxic shock syndrome. Phentolamine SC was administered for extravasation of norepinephrine. RIJ CVC was placed for norepinephrine administration. DuoNebs were placed as needed. Patient was also started on IV Ig and prothrombin complex concentrate for toxic shock syndrome and likely DIC. 12/24/24: Overnight patient went into SVT with highest rate being 221. EKG showed A-fib with RVR rate 141. Patient was started on amiodarone infusion as per cardiology recommendations. Heart rate improved to 80s/110s overnight. Patient was examined at bedside; she seems to be in some distress with tachypnea and labored breathing noted (later put on BiPAP). The cellulitis and lesions 2/2 extravasation of Levophed seem unchanged from yesterday. Her YOU seems to be improving due to an increased urine output of 460 mL last night whereas the day before she was mostly anuric. Based on urine labs showing random creatinine 203, random sodium 21.1, random potassium 68, and random chloride 29.0, the most likely cause of the YOU is renal hypoperfusion 2/2 toxic shock syndrome. Blood cultures grew Streptococcus pyogenes, reaffirming that patient's current hypotension and other symptoms are 2/2 toxic shock syndrome from the above organism which may have originated from patient's cellulitis. Patient's lactic acid continues to trend upwards from 5.1 to 5.4 and now is 6.0 at the time of writing this note (11:30). Other pertinent labs include sodium drop to 134 from 136, magnesium bump to 3.3 from 1.5, creatinine bump to 2.2 from 2.1, PT bump to 12.3 from 12.1, INR 1.1, APTT bump to 45.8 from 30.5, fibrinogen drop to 506 from 560, total bilirubin drop to 1.4 from 2.1, and CK drop to 251 from 450. Current plan is to dampen the cytokine storm from toxic shock syndrome by giving IVIG (to be dosed by pharmacy), switch IV cefepime to IV meropenem in her antibiotic regimen, and continue pressor support to maintain MAP > 65 (patient does not seem fluid-responsive). 12/25/24: No overnight events. Patient was examined at bedside; she is intubated now and exhibiting many concerning findings on physical exam including further spread of induration at the left thigh, formation of new bullae just distal and lateral of the left knee, as well as increasingly necrotic / black appearance of the ulcerated area on the lateral left lower extremity and black lesions on the 2nd and 4th toes of the left foot. Pertinent labs today include hemoglobin now 10.1 from 11.0, platelet count now 50 from 83, creatinine now 1.5 from 2.3, blood glucose 59, lactic acid now 8.3 from 8.2, phosphorus 2.2 from 3.6, total bilirubin now 1.4 from 1.1, AST now 59 from 29, ALT now 40 from 26, and alkaline phosphatase now 146 from 85. In terms of changes to management, patient's IV vancomycin will be stopped (MRSA screen came back negative), patient will be started trickle feed @ 10 mL/hr, IV Protonix 40 mg qD will be started for GI prophylaxis due to patient's new intubated status, and she will have an arterial line inserted today for effective monitoring of patient ABG's. She will be continued on IV meropenem and clindamycin as well as given her last of 3 doses of IVIG to treat her ongoing toxic shock syndrome. Due to continued need for intubation and pressors, patient continues to meet criteria for ICU-level management. 12/26/24: Overnight, patient was noted to have atrial fibrillation with RVR (heart rate 130s) beginning at around 11:30 PM; she was given a bolus of amiodarone around midnight followed by amiodarone drip and she converted back to sinus rhythm around 5:30 AM. Patient's total urine output last night was 5 mL. She has been tolerating trickle feeds at 20 mL/h with 30 mL/h water flushes; her blood sugars have been in the 100s and at 23:07 last night she was given an amp of D50 for a blood glucose of 65. Patient was examined at bedside; her cellulitis continues to worsen with further spread of erythema up her lateral left leg and now reaching up to the left side of patient's hip and torso as well as development of new bullae and increasingly cyanotic appearance of bilateral toes (moreso of the right foot). Concerningly, patient's lactic acid continues to uptrend despite CRRT last night and was found to be 10.0 (from 7.4 around 5 hours earlier) at 05:10 this morning. This ongoing lactic acidosis could be secondary to possible necrotizing infection or acute compartment syndrome of patient's severely lymphedematous legs. Hand-held Doppler was able to appreciate dorsalis pedis pulses bilaterally today. Other worrying trends and labs include continued leukocytosis (17.1 -> 27.6), worsening thrombocytopenia (platelet count 50 -> 24), PT 12.7 -> 13.4, APTT 51.1, fibrinogen 525, and D-dimer 3060 -> 3610. At this point, due to concern for necrotizing skin and soft tissue infection in the setting of worsening cellulitis and ongoing lactic acidosis, the current plan is to have patient transferred to another facility for higher level care. General Surgery (Dr. Hines) was consulted and it was agreed that patient's best hope is to be transferred to a facility that can offer definitive surgical intervention that may include [id number] amputation or even possible disarticulation of the hip. Transfer nurse has been contacted to initiate transfer proceedings accordingly. 12/27/24: Overnight, patient received CRRT and UOP was 0. Transfer process was initiated yesterday but transfer has been rejected by 4 tertiary centers and there have been no acceptances so far. Patient's cellulitis has, for the first time since ICU admission, seemed to not have advanced since the day before. Reassuringly, her lactic acid after CRRT was 4.1 which suggests that any dangerous cause of ongoing lactic acidosis (compartment syndrome, necrosis) seems to have slowed or stopped. Due to this, transfer for surgical intervention is not being aggressively pursued for now. 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 Patient's daughter, Brianna, was updated on patient's clinical status, current management plan, and patient's poor prognosis that included high risk of sudden deterioration and . All questions asked were appropriately answered and patient voiced understanding of the patient's current condition. She has also asked that she be updated daily regarding patient's evolving status. Current plan moving forward is to continue treating patient's toxic shock syndrome with IV meropenem and clindamycin until 01/04 for a full [id number] of antibiotics, continue IV hydrocortisone for refractory distributive shock, continue CRRT as recommended by Nephrology, and continue intubation/ventilation as appropriate. Exam Vital Signs Temp Pulse Resp BP Pulse Ox O2 Del Method O2 Flow Rate 98.3 F 112 H 35 H 83/53 L 100 Mechanical Ventilation 12/27/24 08:00 12/27/24 12:00 12/27/24 06:51 12/27/24 12:00 12/27/24 11:00 12/27/24 11:00 12/27/24 08:00 FiO2 30 12/27/24 11:14 Narrative Exam General: Extremely morbidly obese female. Sedated and intubated. Head: Normocephalic, atraumatic. Ears: No ear pain, no ear discharge, Hearing grossly intact. Nose: No nasal discharge. Mouth/Throat: ET and OG tube in place. Facial hair bilaterally noted on the chin but not at center of chin (female hirsutism). Cardiovascular: Difficult to auscultate due to body habitus but seemingly normal rate and normal rhythm, no murmur, no JVD or carotid bruits. +S1/S2. Respiratory: Intubated and on volume control ventilation. Difficult to auscultate due to body habitus but anterior lung mccallum seemingly clear to auscultation without wheezing or crackles appreciated. Tachypneic and labored breathing. No accessory muscle use. Gastrointestinal: Soft, nontender, obese, no palpable masses. No guarding or rebound tenderness. Difficult to appreciate bowel sounds due to body habitus. Extremities: (due to level of detail necessary to adequately describe patient's skin-related presentation, this portion of the exam will be split into multiple sections based on timeframe) Physical Exam Changes on 12/27/24 Seemingly no advancement of patient's cellulitis, erythema, or skin lesions beyond demarcation borders from yesterday. Darkening of some areas that were previously characterized by bullae across left espinoza and right espinoza. Bullae of proximal, lateral espinoza (right below left knee) appears turgid and ready to burst. Physical Exam Changes on 12/26/24 Today, patient's cellulitis continues to worsen. There is new erythema (beyond demarcations) that travels up the lateral left thigh and reaches up towards the left side of patient's hip and torso as well as development of new bullae bilaterally and increasingly cyanotic appearance of bilateral toes (worse on the left foot). The necrotic lesions of the toes on left foot appear darker and larger. Multiple areas of new induration and denuded skin of bilateral lower extremities anteriorly. Mottling noted of right lower extremity. Posterior left thigh continues to worsen in appearance and appears purple and engorged. New discolored lesion near right buttock. Bilateral dorsalis pedis pulses were able to be appreciated by handheld Doppler. Dusky discoloration of right fingers have spread to DIP while new dusky discoloration noted of left pointer finger and middle finger. Hands feel cold and puffy. Physical Exam Findings from 12/25/24 and before Massive bilateral lymphedema that is significantly worse at left leg. Large area of wrinkly, rough, induration most prominent at left medial thigh that spreads to all areas distally, while right leg also has areas like these as well distributed all across right espinoza and areas distal to the right espinoza. Black eschars noted at left medial thigh and at 2nd and 4th toes on left foot (worsening) with large patch of ulceration / desquamation on anterolateral left espinoza (that is now turning black). Significant lichenification of left foot most dense at the base of the 3rd toe and dorsolaterally. Lichenification of right foot as well. Blood seeping out from left hallux toenail (mostly dried), significant hyperkeratinization and elevation of toenails, especially left 3rd toenail and right hallux toenail. Ecchymosis of right proximal upper extremity, and red-purple ecchymosis of right antecubital fossa that is unchanged from yesterday. Dusky fingertips of right hand with mottling noticed on hands bilaterally. Objective Labs 12/27/24 05:20 12/27/24 12:30 Labs: Laboratory Results - last 24 hr 12/25/24 12/26/24 12/26/24 18:07 13:03 13:13 WBC 30.1 H RBC 3.97 L Hgb 10.2 L Hct 31.6 L MCV 80 MCH 25.7 MCHC 32.3 RDW Std Deviation 54.1 H Plt Count 25 L* Neut % (Auto) 77 Lymph % (Auto) 5 L Grainger % (Auto) 4 Eos % (Auto) 0 Baso % (Auto) 0 Neut # (Auto) 23.2 H Lymph # (Auto) 1.6 Grainger # (Auto) 1.3 H Eos # (Auto) 0.0 Baso # (Auto) 0.0 Immature Gran # (Auto) 3.94 H Absolute Nucleated RBC 0.16 H Immature Gran % 13 H Nucleated RBC % 1 H Puncture Site ABG pH ABG pCO2 ABG pO2 ABG HCO3 ABG O2 Saturation ABG Base Excess FiO2 Sodium 134 L Potassium 3.7 D Chloride 97 L Carbon Dioxide 22.6 Anion Gap 14 BUN 13 Creatinine 1.4 H Estim Creat Clear Calc 65.8 eGFR 44 L BUN/Creatinine Ratio 9 L Glucose 117 H Calculated Osmolality 269 L Lactic Acid 7.3 H* Calcium 8.4 Corrected Calcium 9.8 Phosphorus Magnesium Total Bilirubin 1.0 AST 66 H ALT 48 Alkaline Phosphatase 221 H D Total Protein 6.0 Albumin 2.2 L Globulin 3.8 H Albumin/Globulin Ratio 0.6 L Misc Test Result Platelets confirmed Blood Type B Positive Antibody Screen NEGATIVE Blood Bank Wristband ID Yes Blood Bank Comment PLATP Ready 12/26/24 12/26/24 12/26/24 16:53 18:26 21:53 WBC RBC Hgb Hct MCV MCH MCHC RDW Std Deviation Plt Count Neut % (Auto) Lymph % (Auto) Grainger % (Auto) Eos % (Auto) Baso % (Auto) Neut # (Auto) Lymph # (Auto) Grainger # (Auto) Eos # (Auto) Baso # (Auto) Immature Gran # (Auto) Absolute Nucleated RBC Immature Gran % Nucleated RBC % Puncture Site ABG pH ABG pCO2 ABG pO2 ABG HCO3 ABG O2 Saturation ABG Base Excess FiO2 Sodium 132 L Potassium 3.5 Chloride 96 L Carbon Dioxide 24.8 Anion Gap 11 BUN 12 Creatinine 1.2 Estim Creat Clear Calc 76.8 eGFR 53 L BUN/Creatinine Ratio 10 L Glucose 121 H Calculated Osmolality 265 L Lactic Acid 5.8 H* 5.5 H* 5.1 H* Calcium 8.5 Corrected Calcium 9.9 Phosphorus 1.9 L Magnesium Total Bilirubin 1.1 AST 60 H ALT 50 H Alkaline Phosphatase 216 H Total Protein 6.2 Albumin 2.2 L Globulin 4.0 H Albumin/Globulin Ratio 0.6 L Misc Test Result Blood Type Antibody Screen Blood Bank Wristband ID Blood Bank Comment 12/27/24 12/27/24 12/27/24 00:20 04:08 05:20 WBC 33.1 H RBC 3.91 L Hgb 10.0 L Hct 30.6 L MCV 78 L MCH 25.6 MCHC 32.7 RDW Std Deviation 52.1 H Plt Count 26 L* Neut % (Auto) 78 Lymph % (Auto) 7 L Grainger % (Auto) 4 Eos % (Auto) 0 Baso % (Auto) 0 Neut # (Auto) 25.7 H Lymph # (Auto) 2.3 Grainger # (Auto) 1.3 H Eos # (Auto) 0.0 Baso # (Auto) 0.0 Immature Gran # (Auto) 3.80 H Absolute Nucleated RBC 0.11 H Immature Gran % 12 H Nucleated RBC % 0 Puncture Site Arterial Line ABG pH 7.47 H D ABG pCO2 36 ABG pO2 82 L ABG HCO3 26 ABG O2 Saturation 98 ABG Base Excess 2 FiO2 30 Sodium 134 L 133 L Potassium 3.4 3.8 Chloride 96 L 96 L Carbon Dioxide 26.4 27.0 Anion Gap 12 10 BUN 11 9 Creatinine 0.9 0.8 Estim Creat Clear Calc 102.3 118.4 eGFR > 60 > 60 BUN/Creatinine Ratio 12 11 L Glucose 127 H 118 H Calculated Osmolality 269 L 266 L Lactic Acid 4.9 H* 4.7 H* Calcium 8.6 8.8 Corrected Calcium 10.0 10.3 H Phosphorus 1.7 L Magnesium 1.7 Total Bilirubin 1.1 1.2 AST 60 H 62 H ALT 48 51 H Alkaline Phosphatase 248 H D 242 H Total Protein 5.7 5.7 Albumin 2.2 L 2.1 L Globulin 3.5 3.6 H Albumin/Globulin Ratio 0.6 L 0.6 L Misc Test Result Platelets confirmed Blood Type Antibody Screen Blood Bank [facility] Blood Bank Comment 12/27/24 09:45 WBC RBC Hgb Hct MCV MCH MCHC RDW Std Deviation Plt Count Neut % (Auto) Lymph % (Auto) Grainger % (Auto) Eos % (Auto) Baso % (Auto) Neut # (Auto) Lymph # (Auto) Grainger # (Auto) Eos # (Auto) Baso # (Auto) Immature Gran # (Auto) Absolute Nucleated RBC Immature Gran % Nucleated RBC % Puncture Site Left Radial ABG pH 7.42 ABG pCO2 41 ABG pO2 97 ABG HCO3 27 H ABG O2 Saturation 99 H ABG Base Excess 2 FiO2 30 Sodium Potassium Chloride Carbon Dioxide Anion Gap BUN Creatinine Estim Creat Clear Calc eGFR BUN/Creatinine Ratio Glucose Calculated Osmolality Lactic Acid Calcium Corrected Calcium Phosphorus Magnesium Total Bilirubin AST ALT Alkaline Phosphatase Total Protein Albumin Globulin Albumin/Globulin Ratio Misc Test Result Blood Type Antibody Screen Blood Bank [facility] Blood Bank Comment ABG Interpretation ABG results: 12/22/24 12/22/24 12/23/24 16:49 23:40 13:05 ABG pH 7.39 7.29 L D ABG pCO2 33 37 ABG pO2 60 L 73 L ABG HCO3 20 18 L ABG O2 Saturation 92 94 ABG Base Excess -5 L -8 L VBG pH 7.35 VBG pCO2 37 VBG pO2 27 VBG Base Excess -5 L 12/24/24 12/24/24 12/24/24 08:54 17:12 17:19 ABG pH 7.25 L 7.16 L* ABG pCO2 34 36 ABG pO2 166 H D 127 H D ABG HCO3 15 L 13 L ABG O2 Saturation 100 H 99 H ABG Base Excess -11 L -15 L VBG pH 7.12 L VBG pCO2 42 VBG pO2 44 VBG Base Excess -15 L 12/24/24 12/24/24 12/25/24 19:45 22:40 04:47 ABG pH 7.10 L* 7.21 L D 7.36 D ABG pCO2 50 H D 38 D 37 ABG pO2 249 H D 249 H 191 H D ABG HCO3 15 L 15 L 21 ABG O2 Saturation 100 H 100 H 100 H ABG Base Excess -14 L -12 L -4 L VBG pH VBG pCO2 VBG pO2 VBG Base Excess 12/25/24 12/25/24 12/26/24 15:59 19:55 04:10 ABG pH 7.41 7.41 7.36 ABG pCO2 37 39 37 ABG pO2 128 H D 123 H 99 D ABG HCO3 23 24 21 ABG O2 Saturation 100 H 99 H 98 ABG Base Excess -1 0 -4 L VBG pH VBG pCO2 VBG pO2 VBG Base Excess 12/27/24 12/27/24 04:08 09:45 ABG pH 7.47 H D 7.42 ABG pCO2 36 41 ABG pO2 82 L 97 ABG HCO3 26 27 H ABG O2 Saturation 98 99 H ABG Base Excess 2 2 VBG pH VBG pCO2 VBG pO2 VBG Base Excess Quality Measures Quality Measures none Assessment & Plan Assessment Current Active Medications: Generic Name Dose Route Start Last Admin Trade Name Freq PRN Reason Stop Dose Admin Acetaminophen 650 mg 12/22/24 17:09 12/23/24 10:19 Acetaminophen 325 Mg Tablet PO 01/21/25 17:08 650 mg Q6H PRN Administration Pain 1-3 and/or Fever >100.1 Albuterol/Ipratropium 3 ml 12/23/24 09:36 Albuterol/Ipratropium (Duoneb) Rt Ginny 3 Ml Nebu INH 01/22/25 07:44 Q8HRRT PRN wheezing Clotrimazole 0 gm 12/23/24 09:00 12/27/24 08:34 Clotrimazole Cr 1% 30 Gm Tube TOP 01/22/25 08:59 1 applicatio BID TRACY Administration Dextrose 25 ml 12/22/24 17:09 12/25/24 23:07 Dextrose 50%-Water Inj 50 Ml Syringe IV 01/21/25 17:08 25 ml Q15MIN PRN Administration BG 50-70 responsive npo pt Dextrose 50 ml 12/22/24 17:09 12/25/24 14:03 Dextrose 50%-Water Inj 50 Ml Syringe IV 01/21/25 17:08 50 ml Q15MIN PRN Administration BG <50 OR BG <70 & pt unresponsive Glucagon 1 mg 12/22/24 17:09 Glucagon Inj 1 Mg Vial IM Q15MIN PRN BG <70, and no IV access Heparin Sodium (Porcine) 7,500 unit 12/23/24 14:00 12/27/24 05:04 Heparin Sod Inj 5000 Unit/Ml Vial SC 01/06/25 13:59 Not Given Q8HR TRACY Hydrocortisone Sodium Succinate 50 mg 12/24/24 18:00 12/27/24 11:50 Hydrocortisone Sod Succ Inj 100 Mg 2 Ml Vial IV 01/23/25 17:59 50 mg Q6HR TRACY Administration Norepinephrine Bitartrate 16 mg in 250 mls @ 7.369 mls/hr 12/23/24 07:12 12/27/24 12:00 Levophed In Ns 16mg/250ml IV 01/22/25 07:11 0.07 mcg/kg/min .Q24H PRN 10.316 mls/hr PER protocol Titration Protocol 0.05 MCG/KG/MIN Clindamycin/Sodium Chloride 600 mg in 50 mls @ 100 mls/hr 12/23/24 09:35 12/27/24 05:12 Cleocin/Ns Ivpb IV 12/30/24 09:34 100 mls/hr Q8HR TRACY Administration Propofol 1,000 mg in 100 mls @ 4.722 mls/hr 12/24/24 16:53 12/27/24 12:00 Diprivan Ivpb IV 01/23/25 16:52 10 mcg/kg/min .[id number] PRN 9.444 mls/hr Per Protocol Titration Protocol 5 MCG/KG/MIN Fentanyl Citrate 2,500 mcg in 250 mls @ 2.5 mls/hr 12/24/24 16:55 12/27/24 12:00 Sublimaze Inj 2,500 Mcg/250 Ml Bag IV 12/29/24 16:54 125 mcg/hr .Q24H PRN 12.5 mls/hr PER PROTOCOL Titration Protocol 25 MCG/HR Vasopressin/Sodium Chloride 20 unit in 100 mls @ 9 mls/hr 12/24/24 17:09 Vasostrict/Ns Ivpb IV 01/23/25 17:08 .Q11H7M PRN PER PROTOCOL Protocol 0.03 UNIT/MIN Meropenem 1,000 mg/ Sodium 50 mls @ 100 mls/hr 12/25/24 17:00 12/27/24 05:14 Chloride IV 01/01/25 16:59 100 mls/hr Q8HR TRACY Administration Amiodarone HCl/Dextrose 360 mg in 200 mls @ 33.333 mls/hr 12/26/24 19:15 12/27/24 08:44 Nexterone Ivpb IV 12/27/24 19:14 33.333 mls/hr .Q6H TRACY Administration Sodium Phosphate 22.5 mmol/ 507.5 mls @ 82.778 mls/hr 12/27/24 06:31 12/27/24 08:41 Sodium Chloride IV 12/27/24 12:38 82.778 mls/hr X1 ONE Administration Ondansetron HCl 4 mg 12/22/24 17:09 Ondansetron Inj 2 Mg/Ml Inj 2 Ml IVP 01/21/25 17:08 Q6H PRN NAUSEA OR VOMITING Protocol Pantoprazole Sodium 40 mg 12/25/24 11:15 12/27/24 07:59 Pantoprazole Inj 40 Mg Vial IVP 01/24/25 11:14 40 mg QDAY TRACY Administration Pharmacy Consult 1 each 12/23/24 11:15 Pharmacy Renal Dose Adjustment 1 Ea XX 01/22/25 11:14 PRN PRN CONSULT Sennosides 1 tab 12/22/24 17:09 Senna Tablet PO 01/21/25 17:08 QDAY PRN constipation Protocol Plan 54-year-old female with past medical history of prior NC, insulin-dependent type 2 diabetes, lymphedema, lipedema, asthma, epilepsy, morbid obesity, nonambulatory status for 9 years, and wheelchair-bound status presenting to the ED on 12/22 with left lower extremity pain and oozing. [employer] was called due to hypotension and, despite aggressive fluid resuscitation, patient remained persistently hypotensive. However, nursing staff was having a hard time to obtain accurate measurement due to body habitus. Repeat labs did revealed lactic acidosis which did not improved even after 5 L of fluids, Cheetah monitor was placed, patient found to be not fluid responsive. At this point decision was made to upgrade patient to ICU for pressor support. Overnight, patient received CRRT and UOP was 0. Transfer process was initiated yesterday but transfer has been rejected by 4 tertiary centers and there have been no acceptances so far. Patient's cellulitis has, for the first time since ICU admission, seemed to not have advanced since the day before. Reassuringly, her lactic acid after CRRT was 4.1 which suggests that any dangerous cause of ongoing lactic acidosis (compartment syndrome, necrosis) seems to have slowed or stopped. Due to this, transfer for surgical intervention is not being aggressively pursued for now. 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 Patient's daughter, Brianna, was updated on patient's clinical status, current management plan, and patient's poor prognosis that included high risk of sudden deterioration and . All questions asked were appropriately answered and patient voiced understanding of the patient's current condition. She has also asked that she be updated daily regarding patient's evolving status. Current plan moving forward is to continue treating patient's toxic shock syndrome with IV meropenem and clindamycin until 01/04 for a full [id number] of antibiotics, continue IV hydrocortisone for refractory distributive shock, continue CRRT as recommended by Nephrology, and continue intubation/ventilation as appropriate. 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 She was then started on Levophed through a peripheral IV but this led to extravasation and phentolamine had to be infused around the site. Cardiogenic etiology less likely due to bedside echocardiogram showing seemingly adequate contractility without large pericardial effusion. Obstructive etiology less likely due to absence of pneumothorax or PE. Hypovolemic etiology less likely due to receiving adequate fluid infusion without source of active bleeding. Favored etiology of primary contribution is distributive shock 2/2 toxic shock syndrome (due to drop in platelets, YOU, and other labs suggesting some level of DIC) Importantly, clindamycin is unique as an antibiotic for treatment of TSS in that it binds to the 50S ribosomal subunit of bacteria and directly suppresses synthesis of exotoxins like Toxic Shock Syndrome Toxin-1 (TSST-1) and enterotoxins produced by Streptococcus pyogenes Dx: -12/22 BCx (04/01) grew zaman-sensitive Streptococcus pyogenes (Group A Streptococcus) -12/22 echocardiogram showed reduced EF of 45% Rx: -s/p completion of IVIG administration x 3 [12/23-12/25] -Antibiotic regimen as detailed in ID section -Monitor hemodynamics and titrate pressor support as appropriate to maintain MAP > 65 using BP measured by arterial line -Stress dose IV hydrocortisone 50 mg q6HR for refractory distributive shock [12/24--] #Acute systolic and diastolic dysfunction w/ mildly reduced EF [40-45%] DDx: septic cardiomyopathy, ischemic cardiomyopathy Dx: -12/22 echocardiogram showed reduced EF of 45% Rx: -Further evaluation in the outpatient setting #Atrial fibrillation w/ RVR on amiodarone infusion Patient has been having atrial fibrillation w/ RVR throughout her stint in the ICU but converted to sinus rhythm and has remained in this rhythm Rx: -Continue amiodarone drip Respiratory #Acute respiratory failure with hypoxia requiring intubation and mechanical ventilation 2/2 severe metabolic acidosis Dx: -12/27 ABG showed pH 7.47, pCO2 36, pO2 82, and HCO3 26 (metabolic alkalosis, possibly due to bicarbonate infused by CRRT) Rx: -Continue intubation and mechanical ventilation (not fit for SBT) -Continue IV Protonix 40 mg qD for GI prophylaxis due to patient's intubated status RRx: -Follow up on repeat ABG at 4 PM, adjust ventilator settings accordingly Renal #Acute renal failure likely 2/2 shock and ATN on CRRT Creatinine initially elevated upon admission at 1.8 and had slowly up-trended Baseline creatinine used to be WNL but last lab was from a few years ago However, patient was noted to have almost no UOP for days despite adequate fluid resuscitation, suggesting YOU 2/2 ATN 2/2 renal hypoperfusion Dx: -Overnight UOP was 0, indicating ongoing impairment of kidney function Rx: -CRRT as needed per Nephrology recommendations -Strict I's & O's -Avoid nephrotoxins #Lactic acidosis 2/2 toxic shock syndrome (resolving) #High anion gap metabolic acidosis Likely etiology is lactic acidosis from ongoing hypoperfusion 2/2 toxic shock syndrome and YOU Dx: -Reassuringly, her lactic acid today after CRRT was 4.1 which suggests that any dangerous cause of ongoing lactic acidosis (compartment syndrome, necrosis) seems to have slowed or stopped. -Bilateral lower extremity venous Doppler ultrasound ruled out cerulea dolens 2/2 extensive DVT -Bedside arterial duplex of dorsalis pedis confirmed blood flow to both feet Rx: -General Surgery (Dr. Hines) consulted regarding possible surgical decompression/debridement options as well as opinions on the viability of transferring patient to another facility for [id number]-care -Transfer nurse contacted to initiate proceedings necessary to possible transfer (however, due to halt of cellulitic spread and resolving lactic acidosis, pursuit of transfer has been deferred for now) -Treat underlying cause (toxic shock syndrome) GI #Transaminitis In the setting of ongoing toxic shock syndrome Endocrine #T2DM Rx: -Tube feeds @ 20 mL / hr and 30 mL/hr flushes -SF Prostat 30 mL BID -Blood sugar check q1HR Heme #Thrombocytopenia Likely 2/2 sepsis Dx: -Platelet count up to 26 from 24 yesterday Rx: -Continue to monitor CBC and for signs of active bleeding -Transfuse platelets if platelets less than 50 with active bleeding or less than 15 RRx: -Thrombocytopenia does not seem to be worsening currently #Coagulopathy 2/2 toxic shock syndrome - possible DIC Dx: -Elevated INR, elevated D-Dimer, and elevated fibrinogen suggestive of low level DIC Rx: -Trend coagulation panels daily #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 s/p KCentra 5,000 U x 1 on 12/23/24 (protein C unavailable) Rx: -Punch biopsy performed on both right and left leg for histopathological confirmation of purpura fulminans diagnosis #Leukocytosis In the setting of ongoing toxic shock syndrome, infection, and steroid medications Dx: -WBC now 33.1 from 27.6 ID #Cellulitis #Streptococcus pyogenes bacteremia #Chronic bilateral lower extremity lymphedema Likely source of sepsis and precipitating toxic shock syndrome As mentioned earlier in the Cardiovascular section, clindamycin is unique as an antibiotic for treatment of TSS in that it binds to the 50S ribosomal subunit of bacteria and directly suppresses synthesis of exotoxins like Toxic Shock Syndrome Toxin-1 (TSST-1) and enterotoxins produced by Streptococcus pyogenes Timeline of antibiotic regimen detailed below: 1. IV vancomycin dosed by pharmacy [12/22-12/25, discontinued due to MRSA(-)] 2. IV clindamycin 600 mg q8HR [12/22-01/01] 3. IV cefepime 2 gm q12HR [12/22-12/24, discontinued after TSS became favored diagnosis] 4. IV meropenem 1000 mg q8HR [12/24-01/01] Dx: -12/22 BCx (04/01) grew zaman-sensitive Streptococcus pyogenes (Group A Streptococcus) Rx: -Current active antibiotic regimen: IV meropenem 1000 mg q8HR [12/24-01/04] and IV clindamycin 600 mg q8HR [12/22-01/04] to complete a [id number] of antibiotics for treatment of toxic shock syndrome RRx: -Patient is on broad-spectrum coverage and still not improving with an uptrending WBC #UTI Dx: -UA suggestive of infection -UCx came back NGTD Disposition: Patient continues to meet criteria for ongoing ICU management due to continued need for pressors, intubation, and 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 DVT prophylaxis: Heparin 7500 q8HR GI prophylaxis: IV Protonix 40 mg qD Diet: Tube Feeds @ 20 mL / hr Pitts: Present Lines: Peripheral IV, Central IV, arterial line Antibiotics: IV meropenem 1000 mg q8HR [12/24-01/04] and IV clindamycin 600 mg q8HR [12/22-01/04] CODE STATUS: FULL Patient plan of care was discussed with the attending loom operator apprentice, Dr. Zion Dykes, DO Internal Medicine, PGY-1
[2024-12-27 12:47] LABS: Lactate (Lactic Acid) 3.9 mMol/L (0.4-2.0)
[2024-12-27 13:06] LABS: Alanine Aminotransferase 57 U/L (10-49); Albumin, Serum 2.5 gm/dL (3.5-5.0); Albumin/Globulin Ratio 0.6 (1.2-2.2); Alkaline Phosphatase 299 U/L (46-116); Anion Gap 11 (7-16); Aspartate Amino Transferase 77 U/L (0-34); BUN/Creatinine Ratio 12 Ratio (12-20); Bilirubin,Total 1.4 mg/dL (0.3-1.2); Blood Urea Nitrogen 7 mg/dL (9-23); Calcium 8.9 mg/dL (8.3-10.6); Calcium (Corrected) 10.1 mg/dL (8.5-10.1); Carbon Dioxide 24.9 mMol/L (20.0-31.0); Chloride 96 mMol/L (98-107); Creatinine (Component) 0.6 mg/dL (0.6-1.3); Estimated Creatinine Clearance 157.8 mL/min (>60); Globulin 4.0 gm/dL (2.3-3.5); Glucose 107 mg/dL (74-106); Osmolality,Calculated 262 (275-295); Phosphorous 2.4 mg/dL (2.4-5.1); Potassium 3.4 mMol/L (3.4-5.1); Sodium 132 mMol/L (136-145); Total Protein 6.5 gm/dL (5.7-8.2); eGFR > 60 See Note
--- NOTE | 2024-12-27 13:49 | ESPR_ITS ---
<Statement entered by Urszula Eagle MD - 12/28/24 18:38> The patient is examined by me in intensive care and patient has multiple comorbidities morbid obesity lymphedema cellulitis renal failure multiorgan failure atrial fibrillation now appears to be sinus rhythm sinus tachycardia rapid heart rate on amiodarone that she might of converted to sinus rhythm but appears to be quite tachycardic extremely ill and acutely ill patient in ICU with multiple comorbidities and respiratory failure evaluated patient with PGY 3 Dr. Cary Fernandes agree with the treatment plan recommendation as documented. Documentation for date of: 12/27/24 Subjective Subjective Interval history: Patient was seen and examined at bedside patient remain intubated and mechanically ventilated. Ischemic condition continued to worsen and there is sepsis still not improving. Patient still on vasopressors norepinephrine down titrated from vasopressin. Patient was noticed to have bilateral fingertips discoloration to blood which color. Patient remained in A-fib with RVR as she is getting amiodarone 1 mg/h drip. Maintaining heart rate 113 most of the time. Her potassium is 3.8 and phosphate is 2.4 and magnesium 1.7. Exam Vital Signs Temp Pulse Resp BP Pulse Ox O2 Del Method O2 Flow Rate 97.0 F 111 H 20 88/57 L 100 Mechanical Ventilation 30 12/27/24 12:54 12/27/24 12:54 12/27/24 12:54 12/27/24 12:54 12/27/24 12:54 12/27/24 12:00 12/27/24 08:00 FiO2 30 12/27/24 12:54 Narrative Exam GENERAL: Patient is intubated and mechanically ventilated. Remains on sedation. RASS score of -3. HEENT: NC/AT, trachea appears midline, androgenic hair distribution on the chin CARDIOVASCULAR: regular rhythm, tachycardic PULMONARY: symmetric chest rise, on vent, decreased air entry bilaterally due to body habitus ABDOMINAL: soft, non-distended, bowel sounds present EXTREMITIES: Severe left leg swelling with severe hyperkeratotic changes. There is also oozing of yellowish serous fluid with mild erythema specially on the L thigh. Right leg also has hyperkeratotic changes up to the mid espinoza of the right leg. Patient cellulitis continued to worsen. Appears to be increasing diameter beyond the demarcation. Continue to have yellow bloody discharge for oozing. NEURO: limited due to patient mental status and intubation Objective Labs 12/27/24 05:20 12/27/24 12:30 Labs: Laboratory Results - last 24 hr 12/25/24 12/26/24 12/26/24 18:07 13:03 13:13 WBC 30.1 H RBC 3.97 L Hgb 10.2 L Hct 31.6 L MCV 80 MCH 25.7 MCHC 32.3 RDW Std Deviation 54.1 H Plt Count 25 L* Neut % (Auto) 77 Lymph % (Auto) 5 L [place] % (Auto) 4 Eos % (Auto) 0 Baso % (Auto) 0 Neut # (Auto) 23.2 H Lymph # (Auto) 1.6 [place] # (Auto) 1.3 H Eos # (Auto) 0.0 Baso # (Auto) 0.0 Immature Gran # (Auto) 3.94 H Absolute Nucleated RBC 0.16 H Immature Gran % 13 H Nucleated RBC % 1 H Puncture Site ABG pH ABG pCO2 ABG pO2 ABG HCO3 ABG O2 Saturation ABG Base Excess FiO2 Sodium 134 L Potassium 3.7 D Chloride 97 L Carbon Dioxide 22.6 Anion Gap 14 BUN 13 Creatinine 1.4 H Estim Creat Clear Calc 65.8 eGFR 44 L BUN/Creatinine Ratio 9 L Glucose 117 H Calculated Osmolality 269 L Lactic Acid Calcium 8.4 Corrected Calcium 9.8 Phosphorus Magnesium Total Bilirubin 1.0 AST 66 H ALT 48 Alkaline Phosphatase 221 H D Total Protein 6.0 Albumin 2.2 L Globulin 3.8 H Albumin/Globulin Ratio 0.6 L Misc Test Result Platelets confirmed Blood Type B Positive Antibody Screen NEGATIVE Blood Bank Wristband ID Yes Blood Bank Comment PLATP Ready 12/26/24 12/26/24 12/26/24 16:53 18:26 21:53 WBC RBC Hgb Hct MCV MCH MCHC RDW Std Deviation Plt Count Neut % (Auto) Lymph % (Auto) [place] % (Auto) Eos % (Auto) Baso % (Auto) Neut # (Auto) Lymph # (Auto) [place] # (Auto) Eos # (Auto) Baso # (Auto) Immature Gran # (Auto) Absolute Nucleated RBC Immature Gran % Nucleated RBC % Puncture Site ABG pH ABG pCO2 ABG pO2 ABG HCO3 ABG O2 Saturation ABG Base Excess FiO2 Sodium 132 L Potassium 3.5 Chloride 96 L Carbon Dioxide 24.8 Anion Gap 11 BUN 12 Creatinine 1.2 Estim Creat Clear Calc 76.8 eGFR 53 L BUN/Creatinine Ratio 10 L Glucose 121 H Calculated Osmolality 265 L Lactic Acid 5.8 H* 5.5 H* 5.1 H* Calcium 8.5 Corrected Calcium 9.9 Phosphorus 1.9 L Magnesium Total Bilirubin 1.1 AST 60 H ALT 50 H Alkaline Phosphatase 216 H Total Protein 6.2 Albumin 2.2 L Globulin 4.0 H Albumin/Globulin Ratio 0.6 L Misc Test Result Blood Type Antibody Screen Blood Bank [facility] Blood Bank Comment 12/27/24 12/27/24 12/27/24 00:20 01:23 04:08 WBC RBC Hgb Hct MCV MCH MCHC RDW Std Deviation Plt Count Neut % (Auto) Lymph % (Auto) [place] % (Auto) Eos % (Auto) Baso % (Auto) Neut # (Auto) Lymph # (Auto) [place] # (Auto) Eos # (Auto) Baso # (Auto) Immature Gran # (Auto) Absolute Nucleated RBC Immature Gran % Nucleated RBC % Puncture Site Arterial Line ABG pH 7.47 H D ABG pCO2 36 ABG pO2 82 L ABG HCO3 26 ABG O2 Saturation 98 ABG Base Excess 2 FiO2 30 Sodium 134 L 132 L Potassium 3.4 3.4 Chloride 96 L 96 L Carbon Dioxide 26.4 24.9 Anion Gap 12 11 BUN 11 7 L Creatinine 0.9 0.6 Estim Creat Clear Calc 102.3 157.8 eGFR > 60 > 60 BUN/Creatinine Ratio 12 12 Glucose 127 H 107 H Calculated Osmolality 269 L 262 L Lactic Acid 4.9 H* 3.9 H Calcium 8.6 8.9 Corrected Calcium 10.0 10.1 Phosphorus 2.4 Magnesium Total Bilirubin 1.1 1.4 H AST 60 H 77 H ALT 48 57 H Alkaline Phosphatase 248 H D 299 H D Total Protein 5.7 6.5 Albumin 2.2 L 2.5 L Globulin 3.5 4.0 H Albumin/Globulin Ratio 0.6 L 0.6 L Misc Test Result Blood Type Antibody Screen Blood Bank [facility] Blood Bank Comment 12/27/24 12/27/24 05:20 09:45 WBC 33.1 H RBC 3.91 L Hgb 10.0 L Hct 30.6 L MCV 78 L MCH 25.6 MCHC 32.7 RDW Std Deviation 52.1 H Plt Count 26 L* Neut % (Auto) 78 Lymph % (Auto) 7 L [place] % (Auto) 4 Eos % (Auto) 0 Baso % (Auto) 0 Neut # (Auto) 25.7 H Lymph # (Auto) 2.3 [place] # (Auto) 1.3 H Eos # (Auto) 0.0 Baso # (Auto) 0.0 Immature Gran # (Auto) 3.80 H Absolute Nucleated RBC 0.11 H Immature Gran % 12 H Nucleated RBC % 0 Puncture Site Left Radial ABG pH 7.42 ABG pCO2 41 ABG pO2 97 ABG HCO3 27 H ABG O2 Saturation 99 H ABG Base Excess 2 FiO2 30 Sodium 133 L Potassium 3.8 Chloride 96 L Carbon Dioxide 27.0 Anion Gap 10 BUN 9 Creatinine 0.8 Estim Creat Clear Calc 118.4 eGFR > 60 BUN/Creatinine Ratio 11 L Glucose 118 H Calculated Osmolality 266 L Lactic Acid 4.7 H* Calcium 8.8 Corrected Calcium 10.3 H Phosphorus 1.7 L Magnesium 1.7 Total Bilirubin 1.2 AST 62 H ALT 51 H Alkaline Phosphatase 242 H D Total Protein 5.7 Albumin 2.1 L Globulin 3.6 H Albumin/Globulin Ratio 0.6 L Misc Test Result Platelets confirmed Blood Type Antibody Screen Blood Bank Wristband ID Blood Bank Comment ABG Interpretation ABG results: 12/22/24 12/22/24 12/23/24 16:49 23:40 13:05 ABG pH 7.39 7.29 L D ABG pCO2 33 37 ABG pO2 60 L 73 L ABG HCO3 20 18 L ABG O2 Saturation 92 94 ABG Base Excess -5 L -8 L VBG pH 7.35 VBG pCO2 37 VBG pO2 27 VBG Base Excess -5 L 12/24/24 12/24/24 12/24/24 08:54 17:12 17:19 ABG pH 7.25 L 7.16 L* ABG pCO2 34 36 ABG pO2 166 H D 127 H D ABG HCO3 15 L 13 L ABG O2 Saturation 100 H 99 H ABG Base Excess -11 L -15 L VBG pH 7.12 L VBG pCO2 42 VBG pO2 44 VBG Base Excess -15 L 12/24/24 12/24/24 12/25/24 19:45 22:40 04:47 ABG pH 7.10 L* 7.21 L D 7.36 D ABG pCO2 50 H D 38 D 37 ABG pO2 249 H D 249 H 191 H D ABG HCO3 15 L 15 L 21 ABG O2 Saturation 100 H 100 H 100 H ABG Base Excess -14 L -12 L -4 L VBG pH VBG pCO2 VBG pO2 VBG Base Excess 12/25/24 12/25/24 12/26/24 15:59 19:55 04:10 ABG pH 7.41 7.41 7.36 ABG pCO2 37 39 37 ABG pO2 128 H D 123 H 99 D ABG HCO3 23 24 21 ABG O2 Saturation 100 H 99 H 98 ABG Base Excess -1 0 -4 L VBG pH VBG pCO2 VBG pO2 VBG Base Excess 12/27/24 12/27/24 04:08 09:45 ABG pH 7.47 H D 7.42 ABG pCO2 36 41 ABG pO2 82 L 97 ABG HCO3 26 27 H ABG O2 Saturation 98 99 H ABG Base Excess 2 2 VBG pH VBG pCO2 VBG pO2 VBG Base Excess Quality Measures Quality Measures none Assessment & Plan Assessment Current Active Medications: Generic Name Dose Route Start Last Admin Trade Name Freq PRN Reason Stop Dose Admin Acetaminophen 650 mg 12/22/24 17:09 12/23/24 10:19 Acetaminophen 325 Mg Tablet PO 01/21/25 17:08 650 mg Q6H PRN Administration Pain 1-3 and/or Fever >100.1 Albuterol/Ipratropium 3 ml 12/23/24 09:36 Albuterol/Ipratropium (Duoneb) Rt Ginny 3 Ml Nebu INH 01/22/25 07:44 Q8HRRT PRN wheezing Clotrimazole 0 gm 12/23/24 09:00 12/27/24 08:34 Clotrimazole Cr 1% 30 Gm Tube TOP 01/22/25 08:59 1 applicatio BID TRACY Administration Dextrose 25 ml 12/22/24 17:09 12/25/24 23:07 Dextrose 50%-Water Inj 50 Ml Syringe IV 01/21/25 17:08 25 ml Q15MIN PRN Administration BG 50-70 responsive npo pt Dextrose 50 ml 12/22/24 17:09 12/25/24 14:03 Dextrose 50%-Water Inj 50 Ml Syringe IV 01/21/25 17:08 50 ml Q15MIN PRN Administration BG <50 OR BG <70 & pt unresponsive Glucagon 1 mg 12/22/24 17:09 Glucagon Inj 1 Mg Vial IM Q15MIN PRN BG <70, and no IV access Heparin Sodium (Porcine) 7,500 unit 12/23/24 14:00 12/27/24 05:04 Heparin Sod Inj 5000 Unit/Ml Vial SC 01/06/25 13:59 Not Given Q8HR TRACY Heparin Sodium (Porcine) 3,000 unit 12/27/24 12:35 Heparin Sod Inj 1000 Unit/Ml Vial 10 Ml INDWELLCAT 01/10/25 12:34 PRN PRN DIALYSIS Hydrocortisone Sodium Succinate 50 mg 12/24/24 18:00 12/27/24 11:50 Hydrocortisone Sod Succ Inj 100 Mg 2 Ml Vial IV 01/23/25 17:59 50 mg Q6HR TRACY Administration Norepinephrine Bitartrate 16 mg in 250 mls @ 7.369 mls/hr 12/23/24 07:12 12/27/24 13:00 Levophed In Ns 16mg/250ml IV 01/22/25 07:11 0.07 mcg/kg/min .Q24H PRN 10.316 mls/hr PER protocol Titration Protocol 0.05 MCG/KG/MIN Clindamycin/Sodium Chloride 600 mg in 50 mls @ 100 mls/hr 12/23/24 09:35 12/27/24 05:12 Cleocin/Ns Ivpb IV 12/30/24 09:34 100 mls/hr Q8HR TRACY Administration Propofol 1,000 mg in 100 mls @ 4.722 mls/hr 12/24/24 16:53 12/27/24 13:00 Diprivan Ivpb IV 01/23/25 16:52 10 mcg/kg/min .[id number] PRN 9.444 mls/hr Per Protocol Titration Protocol 5 MCG/KG/MIN Fentanyl Citrate 2,500 mcg in 250 mls @ 2.5 mls/hr 12/24/24 16:55 12/27/24 13:00 Sublimaze Inj 2,500 Mcg/250 Ml Bag IV 12/29/24 16:54 125 mcg/hr .Q24H PRN 12.5 mls/hr PER PROTOCOL Titration Protocol 25 MCG/HR Vasopressin/Sodium Chloride 20 unit in 100 mls @ 9 mls/hr 12/24/24 17:09 Vasostrict/Ns Ivpb IV 01/23/25 17:08 .[id number] PRN PER PROTOCOL Protocol 0.03 UNIT/MIN Meropenem 1,000 mg/ Sodium 50 mls @ 100 mls/hr 12/25/24 17:00 12/27/24 05:14 Chloride IV 01/01/25 16:59 100 mls/hr Q8HR TRACY Administration Amiodarone HCl/Dextrose 360 mg in 200 mls @ 33.333 mls/hr 12/26/24 19:15 12/27/24 08:44 Nexterone Ivpb IV 12/27/24 19:14 33.333 mls/hr .Q6H TRACY Administration Ondansetron HCl 4 mg 12/22/24 17:09 Ondansetron Inj 2 Mg/Ml Inj 2 Ml IVP 01/21/25 17:08 Q6H PRN NAUSEA OR VOMITING Protocol Pantoprazole Sodium 40 mg 12/25/24 11:15 12/27/24 07:59 Pantoprazole Inj 40 Mg Vial IVP 01/24/25 11:14 40 mg QDAY TRACY Administration Pharmacy Consult 1 each 12/23/24 11:15 Pharmacy Renal Dose Adjustment 1 Ea XX 01/22/25 11:14 PRN PRN CONSULT Sennosides 1 tab 12/22/24 17:09 Senna Tablet PO 01/21/25 17:08 QDAY PRN constipation Protocol Plan Summary:A 54-year-old female patient with past medical history of insulin- dependent diabetes mellitus, bilateral lower limb lymphedema, lipedema, asthma, epilepsy, morbid obesity, wheelchair-bound for 9 years, was brought to the ED on 22 December due to left lower extremity pain and clear cirrhosis fluid oozing. Patient was admitted to the ICU for distributive shock. Cardiology team was consulted because of new onset A-fib with RVR and newly diagnosed CHF. #Newly diagnosed HFrEF (40-45%, 11/2024) #New onset A-fib with RVR likely induced by shock state #Streptococcus pyogenes bacteremia 2/2 LLE cellulitis Patient presented with sepsis secondary to left leg cellulitis, her condition worsened to distributive shock. During her stay she developed A-fib with RVR, with no known hx of afib, we started the patient on amiodarone drip. Even though her body habitus echo was done and showed ejection fraction of 40 to 45%. With normal RV function. BNP was 204 which most likely skewed by patient obesity. Troponin was negative. 12/22/24 Echo showed Over all poor images due to body habitus and technically difficult study. Normal left ventricular size and function.Stage I diastolic dysfunction. Estimated ejection fraction is 40-45%. Normal right ventricular size and function. RVSP 39 mm Hg with RAP 8. Mild pulmonary HTN Trace MR and Mild TR. TDS due to patient morbid and laying on supine view, couldn't move. (patient had open wounds under breast) 12/25/2024 patient was started on CRRT due to worsening lactic acidosis and kidney function, blood culture growing Streptococcus pyogenes. Plan ? Continue amiodarone 1 mg/h if her A-fib continue to be persistent, patient this AM converted to sinus with rate of 70s, however now in sinus tachycardia 100s and can transition to amiodarone p.o. 200 mg if patient tolerate oral feed. ? Due to patient condition no invasive cardiac procedure will be done at this time ? Strict in and out ? Keep potassium and magnesium above 4 and 2 respectively within normal range ? Will start the patient on GDMT as soon as her general condition improved #Distributive shock most likely secondary to sepsis #Sepsis secondary to left leg cellulitis #Toxic shock syndrome #Lower extremity lymphedema Plan ? Patient was started on Clindamycin, meropenem by the primary team, patient was also given IgG immunoglobulin ? Patient on norepinephrine drip and vasopressin for distributive shock #History of seizure disorder Patient on antiseizure meds #Concern of DIC #History of COPD Supplemental oxygen, BiPAP as needed, DuoNebs #Elevated bilirubin, elevated AST, hypoalbuminemia Secondary to toxic shock syndrome versus septic shock Follow primary team recommendations #Lactic acidosis improving s/p CRRT #YOU #Non-anion gap metabolic acidosis Thank you for your consultation, please do not hesitate to reach out if you have any question or concern - Patient's plan and care discussed with my attending, Dr. Fco Fuller MD Internal Medicine PGY-3
[2024-12-27] MEDS: HEPARIN SOD INJ 5000 UNIT/ML VIAL 7500 UNIT SC ×2 (14:20→21:51)
[2024-12-27 15:40] LABS: Reflex Lactate? Y
[2024-12-27] MEDS: fentaNYL 2,500 MCG/250 ML BAG 2,500 MCG/250 ML BAG 12.5 MCG IV (15:47)
[2024-12-27 16:17] LABS: Lactic Acid, 3 HR 3.8 mMol/L (0.4-2.0)
--- NOTE | 2024-12-27 17:17 | ESPR_ITS ---
Documentation for date of: 12/27/24 Subjective Subjective Brief History: 54F with DMII, asthma, super morbid obesity with chronic lymphedema who was admitted 12/22/24 with malaise and LLE pain. Pt reported she had sustained an injury to the leg with a resulting wound that she had difficulty caring for. Pt was admitted to [facility] but was transferred to ICU for hypotension, is on single-dose pressor support which has overall decreased, is intubated on FiO2 30% and as of yesterday was started on CRRT. Since admission, food safety technician team has noted worsening appearance of the LLE with spreading erythema and areas of necrotic skin, as well as persistent lactic acidosis for which reason I was consulted today Pt underwent CT LLE on 12/23 which showed extensive cellulitis of the LLE but no drainable collection or osteomyelitis. Her initial blood culture grew group A strep but subsequent cultures have been negative. As of today WBC is at 27 from 17, lactate is 8.6 from a peak of 10 Narrative: Pt overall stable today remaining on low dose pressor support, lactate downtrended from previous days and no new spreading or worsening of erythema Exam Vital Signs Temp Pulse Resp BP Pulse Ox O2 Del Method O2 Flow Rate 97.7 F 112 H 19 81/54 L 100 Mechanical Ventilation 30 12/27/24 16:36 12/27/24 17:15 12/27/24 16:36 12/27/24 17:15 12/27/24 17:00 12/27/24 16:00 12/27/24 08:00 FiO2 30 12/27/24 16:36 Constitutional Constitutional: chronically ill appearing Routine Respiratory Exam Respiratory: Present patient mechanically ventilated Routine Extremities Exam Comments: LLE erythema of the proximal lateral thigh remains within the demarcation noted yesterday, there are still patchy areas of necrosis and a bulla at the lateral lower leg which drained serous fluid after pt was turned Results Results: Laboratory Laboratory results: results reviewed Assessment & Plan Plan 54F with DMII, asthma, super morbid obesity with chronic lymphedema who was a dmitted 12/22/24 with malaise and LLE pain, with hypotension requiring low dose pressor support and renal failure requiring CRRT. On exam pt does have areas of necrotic skin of the LLE as well as bullae, with cellulitis extending to the proximal leg and even gluteal region. Given her positive blood cultures and worsening erythema my opinion yesterday was to evaluate for transfer, for consideration of above knee amputation with potential hip disarticulation, however pt was declined and as of today does appear overall stable with no further spreading of erythema and improved lactate. Of course any surgical intervention for her is exceedingly high risk so I do agree with food safety technician that as of now it is reasonable to continue medical management
--- NOTE | 2024-12-27 17:24 | PC.CC ---
received handoff from CONNIE Montero. Transfer on hold per Dr. Hines pending consult with Dr. Collier. Spoke to bedside nurse Nathaly, she stated per Dr. Hines pt is stabilizing and does not need a BKA at this time and will continue keep the transfer request on hold until further notice. Transfer packet will be left at the transfer nurse desk.
[2024-12-27 18:09] LABS: Lactate (Lactic Acid) 3.1 mMol/L (0.4-2.0)
[2024-12-27 21:06] LABS: Reflex Lactate? Y
[2024-12-27 22:03] LABS: Lactic Acid, 3 HR 2.5 mMol/L (0.4-2.0)
[2024-12-27 22:24] LABS: Albumin, Serum 2.3 gm/dL (3.5-5.0); Anion Gap 11 (7-16); BUN/Creatinine Ratio 13 Ratio (12-20); Blood Urea Nitrogen 9 mg/dL (9-23); Calcium 8.8 mg/dL (8.3-10.6); Calcium (Corrected) 10.2 mg/dL (8.5-10.1); Carbon Dioxide 24.9 mMol/L (20.0-31.0); Chloride 98 mMol/L (98-107); Creatinine (Component) 0.7 mg/dL (0.6-1.3); Estimated Creatinine Clearance 135.3 mL/min (>60); Glucose 143 mg/dL (74-106); Osmolality,Calculated 268 (275-295); Phosphorous 2.5 mg/dL (2.4-5.1); Potassium 3.8 mMol/L (3.4-5.1); Sodium 134 mMol/L (136-145); eGFR > 60 See Note
[2024-12-28] VITALS (110 sets, daily range): BP systolic 1–141; BP diastolic 1–124; PULSE 111–127; RESP 14–30; TEMP 35.8–36.4; O2SAT 90–100
[2024-12-28] MEDS: HEPARIN SOD INJ 1000 UNIT/ML VIAL 10 ML 100 UNIT INDWELLCAT ×15 (01:13→15:09)
[2024-12-28 04:27] LABS: Base Excess 2 (-3-3); HCO3 27 mEq/L (20-26); Inspired Oxygen, FIO2 30 %; O2 Saturation 99 % (91-98); PCO2 45 mmHg (32.0-48.0); PO2 114 mmHg (83-108); pH, Arterial 7.39 (7.35-7.45)
[2024-12-28 04:30] LABS: Allen Test Not Performed; Puncture Site Arterial Line
[2024-12-28] MEDS: Norepinephrine/NS 16mg/250ml 16 MG/250 ML BAG 10.316 MG IV (05:00)
[2024-12-28] MEDS: MEROPENEM INJ 1,000 MG in SODIUM CHLORIDE 0.9% (Popper) 50 ML 100 MG IV ×3 (05:12→21:23)
[2024-12-28] MEDS: CLINDAMYCIN/NS 600 MG IVPB 600 MG/50 ML BAG 100 MG IV ×3 (05:12→21:22)
[2024-12-28] MEDS: HYDROCORTISONE SOD SUCC INJ 100 MG 2 ML VIAL 50 MG IV ×3 (05:13→17:45)
[2024-12-28] MEDS: PROPOFOL 1,000 MG IVPB 1,000 MG/100 ML VIAL 9.444 MG IV ×2 (05:30→17:00)
[2024-12-28 05:40] LABS: Basophils # (Auto) 0.0 Thou/mm3 (0.0-0.2); Basophils % (Auto) 0 % (0-2.5); Eosinophils # (Auto) 0.0 Thou/mm3 (0.0-0.5); Eosinophils % (Auto) 0 % (0-10); Hematocrit 31.5 % (36.0-46.0); Hemoglobin 10.3 g/dL (12.0-16.0); Immature Granulocytes Auto 5.26 Thou/mm3 (0.00-0.00); Lymphocytes # (Auto) 3.2 Thou/mm3 (1.0-4.8); Lymphocytes % (Auto) 7 % (10-50); Mean Corpuscular HGB Conc 32.7 g/dl (31.0-37.0); Mean Corpuscular Hemoglobin 25.8 pg (25.0-35.0); Mean Corpuscular Volume 79 fL (80-100); Monocytes # (Auto) 1.7 Thou/mm3 (0.0-0.8); Monocytes % (Auto) 4 % (0-12); Neutrophils # (Auto) 38.0 Thou/mm3 (1.8-7.7); Neutrophils % (Auto) 79 % (37-80); Nucleated Red Blood Cell # 0.22 Thou/mm3 (0.00-0.00); Nucleated Red Blood Cell % 1 /100 WBC (0); RDW Standard Deviation 52.6 fL (36.4-46.3); Red Blood Count 4.00 Miln/mm3 (4.00-5.20)
[2024-12-28 05:59] LABS: Albumin, Serum 2.2 gm/dL (3.5-5.0); Anion Gap 11 (7-16); BUN/Creatinine Ratio 14 Ratio (12-20); Blood Urea Nitrogen 10 mg/dL (9-23); Calcium 9.0 mg/dL (8.3-10.6); Calcium (Corrected) 10.4 mg/dL (8.5-10.1); Carbon Dioxide 25.1 mMol/L (20.0-31.0); Chloride 98 mMol/L (98-107); Creatinine (Component) 0.7 mg/dL (0.6-1.3); Estimated Creatinine Clearance 135.3 mL/min (>60); Glucose 148 mg/dL (74-106); Osmolality,Calculated 270 (275-295); Phosphorous 2.1 mg/dL (2.4-5.1); Potassium 3.8 mMol/L (3.4-5.1); Sodium 134 mMol/L (136-145); eGFR > 60 See Note
[2024-12-28] MEDS: HEPARIN SOD INJ 5000 UNIT/ML VIAL 7500 UNIT SC ×3 (06:01→21:23)
[2024-12-28 06:05] LABS: Alanine Aminotransferase 50 U/L (10-49); Albumin, Serum 2.3 gm/dL (3.5-5.0); Albumin/Globulin Ratio 0.6 (1.2-2.2); Alkaline Phosphatase 313 U/L (46-116); Anion Gap 10 (7-16); Aspartate Amino Transferase 60 U/L (0-34); BUN/Creatinine Ratio 18 Ratio (12-20); Bilirubin,Total 1.2 mg/dL (0.3-1.2); Blood Urea Nitrogen 11 mg/dL (9-23); Calcium 9.1 mg/dL (8.3-10.6); Calcium (Corrected) 10.5 mg/dL (8.5-10.1); Carbon Dioxide 25.6 mMol/L (20.0-31.0); Chloride 98 mMol/L (98-107); Creatinine (Component) 0.6 mg/dL (0.6-1.3); Estimated Creatinine Clearance 157.8 mL/min (>60); Globulin 3.6 gm/dL (2.3-3.5); Glucose 148 mg/dL (74-106); Magnesium 1.6 mg/dL (1.6-2.6); Osmolality,Calculated 270 (275-295); Phosphorous 2.1 mg/dL (2.4-5.1); Potassium 3.8 mMol/L (3.4-5.1); Sodium 134 mMol/L (136-145); Total Protein 5.9 gm/dL (5.7-8.2); eGFR > 60 See Note
[2024-12-28 06:18] LABS: Platelet Count 23 Thou/mm3 (140-440); White Blood Count 48.2 Thou/mm3 (3.6-11.0)
--- NOTE | 2024-12-28 08:29 | PC.CC ---
Per Dr. Donovan and Vault Custodian Mandy, transfer cancelled
--- NOTE | 2024-12-28 08:45 | XR_ITS ---
Examination: Abdomen AP single view Technique: AP portable supine abdomen, single view Exam date and time: December 28, 2024 0852 hours INDICATIONS: Abdominal pain, diagnosis ileus FINDINGS: Mild air and stool throughout the colon No obstruction Orogastric tube in the stomach satisfactory position IMPRESSION: Nonobstructive bowel gas pattern
--- NOTE | 2024-12-28 08:45 | XR_ITS ---
Examination: AP chest single view TECHNIQUE: Semiupright portable chest AP single view Date and time: December 28, 2024 0852 hours, comparison 12/24/2024 INDICATIONS: Hypoxic respiratory failure FINDINGS: The film is overpenetrated Left internal jugular dialysis catheter and right internal jugular central line tip satisfactory position Endotracheal tube 20 mm above doreen Minor atelectasis right base No significant cardiac enlargement The orogastric tube is in the stomach satisfactory position IMPRESSION: Endotracheal tube and lines satisfactory position
[2024-12-28] MEDS: CLOTRIMAZOLE CR 1% 30 GM TUBE TOP ×2 (08:53→21:25)
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
[2024-12-28] MEDS: Magnesium Sulfate 2 GM Ivpb 2 GM/50 ML BAG IV (09:18)
[2024-12-28] MEDS: LACTULOSE SYRUP 20 GM/30 ML UDC 40 GM PO (09:51)
[2024-12-28] MEDS: DOCUSATE SOD LIQD 100 MG/10 ML UDC PO (09:51)
[2024-12-28] MEDS: fentaNYL 2,500 MCG/250 ML BAG 2,500 MCG/250 ML BAG 12.5 MCG IV (10:09)
[2024-12-28 10:45] LABS: Albumin, Serum 2.3 gm/dL (3.5-5.0); Anion Gap 10 (7-16); BUN/Creatinine Ratio 13 Ratio (12-20); Blood Urea Nitrogen 8 mg/dL (9-23); Calcium 8.9 mg/dL (8.3-10.6); Calcium (Corrected) 10.3 mg/dL (8.5-10.1); Carbon Dioxide 24.2 mMol/L (20.0-31.0); Chloride 99 mMol/L (98-107); Creatinine (Component) 0.6 mg/dL (0.6-1.3); Estimated Creatinine Clearance 158.8 mL/min (>60); Glucose 142 mg/dL (74-106); Osmolality,Calculated 266 (275-295); Phosphorous 1.8 mg/dL (2.4-5.1); Potassium 3.8 mMol/L (3.4-5.1); Sodium 133 mMol/L (136-145); eGFR > 60 See Note
[2024-12-28 11:34] LABS: Path Review Blood Smear Sent to Pathologist; Slide Review Platelets confirmed
[2024-12-28] MEDS: POTASSIUM PHOS 22.5 MMOL in SODIUM CHLORIDE 0.9% 500 ML 500 ML 82.778 MMOL IV (12:25)
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
--- NOTE | 2024-12-28 14:43 | ESPR_ITS ---
<Statement entered by Carlos Duncan MD - 12/28/24 15:36> Senior Resident Attestation: I supervised/discussed management plan with it intern physician Dr. Dykes, and was involved in the care of this patient. I personally saw and examined the patient and discussed the assessment and plan with the entire medicine team, including my attending. I agree with the assessment and plan as documented. Patient was seen and examined at bedside. Her white cell count remains uptrending. Patient undergoing CRRT today. New set of cultures taken. Will continue current management with meropenem and clindamycin. Attempt to reach out to her daughter was unsuccessful today. Patient remains on low-dose Levophed. Patient's care was discussed with attending physician, Dr. Donovan. Carlos Duncan MD PGY-3. Documentation for date of: 12/28/24 Subjective Subjective Interval history: 54-year-old female with past medical history of prior SC (questionable), insulin-dependent type 2 diabetes, lymphedema, lipedema, asthma, epilepsy, morbid obesity, nonambulatory for 9 years, wheelchair-bound presenting to the ED on 12/22 with left lower extremity pain and oozing. Patient states that about 3 weeks ago she slammed her left leg on a brick wall and ever since that time her left leg has progressively worsened and started oozing. Patient lives at home and is largely immobile and requires environmental services project manager in the form of her grandson who takes care of her. Patient has not been seen by outpatient wound care as she says her motorized wheelchair has been broken. Patient also states that she has had a heart attack in the past but has never followed up with cardiology. Patient also has asthma but she denies having any shortness of breath at this time, uses albuterol twice a week. Medical history: As stated above Surgical history: Denies Allergies: Aspirin, codeine, Keppra, morphine, penicillin causes dyspnea Medications: Pending med rec Family history: Patient's mother and grandmother from breast cancer, denies having any family history of heart attack or stroke Social history: Patient lives at home, grandson environmental services project manager, denies any alcohol, tobacco or illicit drug use ROS: All 12 systems assessed and the patient denies unless otherwise stated in HPI In the ED, patient presented mildly hypotensive 92/56, heart rate of 92, respiratory rate of 18, afebrile satting 96 on room air. Pertinent lab findings include WBC of 5.8, potassium 3.1, creatinine 1.8, eGFR of 33, lactic acid initially 7.1 uptrending to 8.0, T. bili of 2.2, AST 21, ALT 14, BNP of 385, Pro-Umberto of 87. Urinalysis shows signs of urinary tract infection. Venous Doppler study is negative for DVT, chest x-ray does not show any active disease and tibia/fibula x-ray shows no acute fracture. Patient was admitted to floors for sepsis secondary to cellulitis . At midnight [employer] was called due to hypotension, despite aggressive fluid resuscitation patient was remained persistent hypotensive, however nursing staff was having a hard time to obtain accurate measurement due to body habitus. Repeat labs did revealed lactic acidosis which did not improved even after 5 L of fluids, Cheetah monitor was placed, patient found to be not fluid responsive. At this point decision was made to upgrade patient to ICU for pressor support. Interval History 12/23/24: Overnight patient had no further events. Input 5 L, output 0. This a.m. IV access infusing norepinephrine extravasated and was removed. Patient complains of mild SOB at rest and also 9/10 constant left leg pain. Labs showed Hb 12.2, PLT 149, BUN 14, CR 2, glucose 84. Lactic acid down trended to 5.6 from 6, Mg 1.5, CK 515, T. bili 2. PTT 33.7, PT 16.7, INR 1.6, fibrinogen 560, D-dimer 3780. Blood cultures growing GPC preliminary. CT of the lower leg showed extensive lymphedema with cellulitis. No signs of osteomyelitis or necrotizing fasciitis. Repleted with magnesium sulfate 4 g IV x 1. Started on clindamycin, renally dosed for toxic shock syndrome. Phentolamine SC was administered for extravasation of norepinephrine. RIJ CVC was placed for norepinephrine administration. DuoNebs were placed as needed. Patient was also started on IV Ig and prothrombin complex concentrate for toxic shock syndrome and likely DIC. 12/24/24: Overnight patient went into SVT with highest rate being 221. EKG showed A-fib with RVR rate 141. Patient was started on amiodarone infusion as per cardiology recommendations. Heart rate improved to 80s/110s overnight. Patient was examined at bedside; she seems to be in some distress with tachypnea and labored breathing noted (later put on BiPAP). The cellulitis and lesions 2/2 extravasation of Levophed seem unchanged from yesterday. Her YOU seems to be improving due to an increased urine output of 460 mL last night whereas the day before she was mostly anuric. Based on urine labs showing random creatinine 203, random sodium 21.1, random potassium 68, and random chloride 29.0, the most likely cause of the YOU is renal hypoperfusion 2/2 toxic shock syndrome. Blood cultures grew Streptococcus pyogenes, reaffirming that patient's current hypotension and other symptoms are 2/2 toxic shock syndrome from the above organism which may have originated from patient's cellulitis. Patient's lactic acid continues to trend upwards from 5.1 to 5.4 and now is 6.0 at the time of writing this note (11:30). Other pertinent labs include sodium drop to 134 from 136, magnesium bump to 3.3 from 1.5, creatinine bump to 2.2 from 2.1, PT bump to 12.3 from 12.1, INR 1.1, APTT bump to 45.8 from 30.5, fibrinogen drop to 506 from 560, total bilirubin drop to 1.4 from 2.1, and CK drop to 251 from 450. Current plan is to dampen the cytokine storm from toxic shock syndrome by giving IVIG (to be dosed by pharmacy), switch IV cefepime to IV meropenem in her antibiotic regimen, and continue pressor support to maintain MAP > 65 (patient does not seem fluid-responsive). 12/25/24: No overnight events. Patient was examined at bedside; she is intubated now and exhibiting many concerning findings on physical exam including further spread of induration at the left thigh, formation of new bullae just distal and lateral of the left knee, as well as increasingly necrotic / black appearance of the ulcerated area on the lateral left lower extremity and black lesions on the 2nd and 4th toes of the left foot. Pertinent labs today include hemoglobin now 10.1 from 11.0, platelet count now 50 from 83, creatinine now 1.5 from 2.3, blood glucose 59, lactic acid now 8.3 from 8.2, phosphorus 2.2 from 3.6, total bilirubin now 1.4 from 1.1, AST now 59 from 29, ALT now 40 from 26, and alkaline phosphatase now 146 from 85. In terms of changes to management, patient's IV vancomycin will be stopped (MRSA screen came back negative), patient will be started trickle feed @ 10 mL/hr, IV Protonix 40 mg qD will be started for GI prophylaxis due to patient's new intubated status, and she will have an arterial line inserted today for effective monitoring of patient ABG's. She will be continued on IV meropenem and clindamycin as well as given her last of 3 doses of IVIG to treat her ongoing toxic shock syndrome. Due to continued need for intubation and pressors, patient continues to meet criteria for ICU-level management. 12/26/24: Overnight, patient was noted to have atrial fibrillation with RVR (heart rate 130s) beginning at around 11:30 PM; she was given a bolus of amiodarone around midnight followed by amiodarone drip and she converted back to sinus rhythm around 5:30 AM. Patient's total urine output last night was 5 mL. She has been tolerating trickle feeds at 20 mL/h with 30 mL/h water flushes; her blood sugars have been in the 100s and at 23:07 last night she was given an amp of D50 for a blood glucose of 65. Patient was examined at bedside; her cellulitis continues to worsen with further spread of erythema up her lateral left leg and now reaching up to the left side of patient's hip and torso as well as development of new bullae and increasingly cyanotic appearance of bilateral toes (moreso of the right foot). Concerningly, patient's lactic acid continues to uptrend despite CRRT last night and was found to be 10.0 (from 7.4 around 5 hours earlier) at 05:10 this morning. This ongoing lactic acidosis could be secondary to possible necrotizing infection or acute compartment syndrome of patient's severely lymphedematous legs. Hand-held Doppler was able to appreciate dorsalis pedis pulses bilaterally today. Other worrying trends and labs include continued leukocytosis (17.1 -> 27.6), worsening thrombocytopenia (platelet count 50 -> 24), PT 12.7 -> 13.4, APTT 51.1, fibrinogen 525, and D-dimer 3060 -> 3610. At this point, due to concern for necrotizing skin and soft tissue infection in the setting of worsening cellulitis and ongoing lactic acidosis, the current plan is to have patient transferred to another facility for higher level care. General Surgery (Dr. Hines) was consulted and it was agreed that patient's best hope is to be transferred to a facility that can offer definitive surgical intervention that may include [id number] amputation or even possible disarticulation of the hip. Transfer nurse has been contacted to initiate transfer proceedings accordingly. 12/27/24: Overnight, patient received CRRT and UOP was 0. Transfer process was initiated yesterday but transfer has been rejected by 4 tertiary centers and there have been no acceptances so far. Patient's cellulitis has, for the first time since ICU admission, seemed to not have advanced since the day before. Reassuringly, her lactic acid after CRRT was 4.1 which suggests that any dangerous cause of ongoing lactic acidosis (compartment syndrome, necrosis) seems to have slowed or stopped. Due to this, transfer for surgical intervention is not being aggressively pursued for now. 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 Patient's daughter, Brianna, was updated on patient's clinical status, current management plan, and patient's poor prognosis that included high risk of sudden deterioration and . All questions asked were appropriately answered and patient voiced understanding of the patient's current condition. She has also asked that she be updated daily regarding patient's evolving status. Current plan moving forward is to continue treating patient's toxic shock syndrome with IV meropenem and clindamycin until 01/04 for a full [id number] of antibiotics, continue IV hydrocortisone for refractory distributive shock, continue CRRT as recommended by Nephrology, and continue intubation/ventilation as appropriate. 12/28/24: Overnight, patient's total UOP was 30 cc (average rate of 2.5 cc/hr), suggesting that renal function continues to be impaired. Patient was examined at bedside; her cellulitis continues to remain contained similar to yesterday without any new spread beyond demarcation borders. Additionally, her lactic acid (while on CRRT) has continued to downtrend and was last seen at 2.5. Pertinent labs today include WBC 33.1 -> 48.2, platelet count 26 -> 23, corrected calcium 10.2 -> 10.5, phosphorus 2.5 -> 2.1, and magnesium 1.7 -> 1.6. ABG from this morning was favorable and patient's transaminitis is downtrending. Patient's daughter Sonollie called regarding patient's status and it was once again emphasized to her the patient's poor prognosis and high potential for sudden deterioration and ; Sonollie voiced understanding of this and all questions were answered. In terms of management changes today, another blood culture was ordered to assess for any new infectious etiologies due to patient's continually up trending WBC, and patient was started on a bowel regimen of PO Colace 100 mg BID and given PO lactulose 40 gm x 1 (which allowed her to have a large BM today for the first time in 3 days). Exam Vital Signs Temp Pulse Resp BP Pulse Ox O2 Del Method O2 Flow Rate 97.0 F 124 H 19 82/74 L 100 Mechanical Ventilation 12/28/24 12:01 12/28/24 14:30 12/28/24 07:18 12/28/24 14:30 12/28/24 12:30 12/27/24 18:00 12/27/24 08:00 FiO2 12/28/24 12:00 Narrative Exam General: Extremely morbidly obese female. Sedated and intubated. Head: Normocephalic, atraumatic. Ears: No ear pain, no ear discharge, Hearing grossly intact. Nose: No nasal discharge. Mouth/Throat: ET and OG tube in place. Facial hair bilaterally noted on the chin but not at center of chin (female hirsutism). Cardiovascular: Difficult to auscultate due to body habitus but seemingly normal rate and normal rhythm, no murmur, no JVD or carotid bruits. +S1/S2. Respiratory: Intubated and on volume control ventilation. Difficult to auscultate due to body habitus but anterior lung mccallum seemingly clear to auscultation without wheezing or crackles appreciated. Tachypneic and labored breathing. No accessory muscle use. Gastrointestinal: Soft, nontender, obese, no palpable masses. No guarding or rebound tenderness. Difficult to appreciate bowel sounds due to body habitus. Extremities: (due to level of detail necessary to adequately describe patient's skin-related presentation, this portion of the exam will be split into multiple sections based on timeframe) Physical Exam Changes on 12/28/24 Still no advancement of patient's cellulitis, erythema, or skin lesions beyond demarcation borders from yesterday. Bullae of proximal, lateral espinoza (right below left knee) seems to have burst and is now replaced by flat, loosely attached folds of wrinkled skin. Gauze in place on the right espinoza due to bleeding from punch biopsy performed yesterday. Physical Exam Changes on 12/27/24 Seemingly no advancement of patient's cellulitis, erythema, or skin lesions beyond demarcation borders from yesterday. Darkening of some areas that were previously characterized by bullae across left espinoza and right espinoza. Bullae of proximal, lateral espinoza (right below left knee) appears turgid and ready to burst. Physical Exam Changes on 12/26/24 Today, patient's cellulitis continues to worsen. There is new erythema (beyond demarcations) that travels up the lateral left thigh and reaches up towards the left side of patient's hip and torso as well as development of new bullae bilaterally and increasingly cyanotic appearance of bilateral toes (worse on the left foot). The necrotic lesions of the toes on left foot appear darker and larger. Multiple areas of new induration and denuded skin of bilateral lower extremities anteriorly. Mottling noted of right lower extremity. Posterior left thigh continues to worsen in appearance and appears purple and engorged. New discolored lesion near right buttock. Bilateral dorsalis pedis pulses were able to be appreciated by handheld Doppler. Dusky discoloration of right fingers have spread to DIP while new dusky discoloration noted of left pointer finger and middle finger. Hands feel cold and puffy. Physical Exam Findings from 12/25/24 and before Massive bilateral lymphedema that is significantly worse at left leg. Large area of wrinkly, rough, induration most prominent at left medial thigh that spreads to all areas distally, while right leg also has areas like these as well distributed all across right espinoza and areas distal to the right espinoza. Black eschars noted at left medial thigh and at 2nd and 4th toes on left foot (worsening) with large patch of ulceration / desquamation on anterolateral left espinoza (that is now turning black). Significant lichenification of left foot most dense at the base of the 3rd toe and dorsolaterally. Lichenification of right foot as well. Blood seeping out from left hallux toenail (mostly dried), significant hyperkeratinization and elevation of toenails, especially left 3rd toenail and right hallux toenail. Ecchymosis of right proximal upper extremity, and red-purple ecchymosis of right antecubital fossa that is unchanged from yesterday. Dusky fingertips of right hand with mottling noticed on hands bilaterally. Objective Labs 12/28/24 04:18 12/28/24 16:00 Labs: Laboratory Results - last 24 hr 12/27/24 12/27/24 12/27/24 16:03 17:52 21:45 WBC RBC Hgb Hct MCV MCH MCHC RDW Std Deviation Plt Count Neut % (Auto) Lymph % (Auto) Dickinson % (Auto) Eos % (Auto) Baso % (Auto) Neut # (Auto) Lymph # (Auto) Dickinson # (Auto) Eos # (Auto) Baso # (Auto) Immature Gran # (Auto) Absolute Nucleated RBC Immature Gran % Nucleated RBC % Smear Path Review Puncture Site ABG pH ABG pCO2 ABG pO2 ABG HCO3 ABG O2 Saturation ABG Base Excess FiO2 Sodium 134 L Potassium 3.8 Chloride 98 Carbon Dioxide 24.9 Anion Gap 11 BUN 9 Creatinine 0.7 Estim Creat Clear Calc 135.3 eGFR > 60 BUN/Creatinine Ratio 13 Glucose 143 H Calculated Osmolality 268 L Lactic Acid 3.8 H 3.1 H 2.5 H Calcium 8.8 Corrected Calcium 10.2 H Phosphorus 2.5 Magnesium Total Bilirubin AST ALT Alkaline Phosphatase Total Protein Albumin 2.3 L Globulin Albumin/Globulin Ratio Misc Test Result 12/28/24 12/28/24 12/28/24 04:14 04:18 04:18 WBC 48.2 H* D RBC 4.00 Hgb 10.3 L Hct 31.5 L MCV 79 L MCH 25.8 MCHC 32.7 RDW Std Deviation 52.6 H Plt Count 23 L* Neut % (Auto) 79 Lymph % (Auto) 7 L Dickinson % (Auto) 4 Eos % (Auto) 0 Baso % (Auto) 0 Neut # (Auto) 38.0 H Lymph # (Auto) 3.2 Dickinson # (Auto) 1.7 H Eos # (Auto) 0.0 Baso # (Auto) 0.0 Immature Gran # (Auto) 5.26 H Absolute Nucleated RBC 0.22 H Immature Gran % 11 H Nucleated RBC % 1 H Smear Path Review Sent to Pathologist Puncture Site Arterial Line ABG pH 7.39 ABG pCO2 45 ABG pO2 114 H ABG HCO3 27 H ABG O2 Saturation 99 H ABG Base Excess 2 FiO2 30 Sodium 134 L 134 L Potassium 3.8 Chloride Carbon Dioxide Anion Gap BUN Creatinine Estim Creat Clear Calc eGFR BUN/Creatinine Ratio Glucose Calculated Osmolality Lactic Acid Calcium Corrected Calcium Phosphorus Magnesium Total Bilirubin AST ALT Alkaline Phosphatase Total Protein Albumin Globulin Albumin/Globulin Ratio Misc Test Result 12/28/24 12/28/24 12/28/24 04:18 04:18 04:18 WBC RBC Hgb Hct MCV MCH MCHC RDW Std Deviation Plt Count Neut % (Auto) Lymph % (Auto) Dickinson % (Auto) Eos % (Auto) Baso % (Auto) Neut # (Auto) Lymph # (Auto) Dickinson # (Auto) Eos # (Auto) Baso # (Auto) Immature Gran # (Auto) Absolute Nucleated RBC Immature Gran % Nucleated RBC % Smear Path Review Puncture Site ABG pH ABG pCO2 ABG pO2 ABG HCO3 ABG O2 Saturation ABG Base Excess FiO2 Sodium Potassium 3.8 Chloride 98 98 Carbon Dioxide 25.1 25.6 Anion Gap 11 BUN Creatinine Estim Creat Clear Calc eGFR BUN/Creatinine Ratio Glucose Calculated Osmolality Lactic Acid Calcium Corrected Calcium Phosphorus Magnesium Total Bilirubin AST ALT Alkaline Phosphatase Total Protein Albumin Globulin Albumin/Globulin Ratio Mis Test Result 12/28/24 12/28/24 12/28/24 04:18 04:18 04:18 WBC RBC Hgb Hct MCV MCH MCHC RDW Std Deviation Plt Count Neut % (Auto) Lymph % (Auto) Dickinson % (Auto) Eos % (Auto) Baso % (Auto) Neut # (Auto) Lymph # (Auto) Dickinson # (Auto) Eos # (Auto) Baso # (Auto) Immature Gran # (Auto) Absolute Nucleated RBC Immature Gran % Nucleated RBC % Smear Path Review Puncture Site ABG pH ABG pCO2 ABG pO2 ABG HCO3 ABG O2 Saturation ABG Base Excess FiO2 Sodium Potassium Chloride Carbon Dioxide Anion Gap 10 BUN 10 11 Creatinine 0.7 0.6 Estim Creat Clear Calc 135.3 eGFR BUN/Creatinine Ratio Glucose Calculated Osmolality Lactic Acid Calcium Corrected Calcium Phosphorus Magnesium Total Bilirubin AST ALT Alkaline Phosphatase Total Protein Albumin Globulin Albumin/Globulin Ratio Mis Test Result 12/28/24 12/28/24 12/28/24 04:18 04:18 04:18 WBC RBC Hgb Hct MCV MCH MCHC RDW Std Deviation Plt Count Neut % (Auto) Lymph % (Auto) Dickinson % (Auto) Eos % (Auto) Baso % (Auto) Neut # (Auto) Lymph # (Auto) Dickinson # (Auto) Eos # (Auto) Baso # (Auto) Immature Gran # (Auto) Absolute Nucleated RBC Immature Gran % Nucleated RBC % Smear Path Review Puncture Site ABG pH ABG pCO2 ABG pO2 ABG HCO3 ABG O2 Saturation ABG Base Excess FiO2 Sodium Potassium Chloride Carbon Dioxide Anion Gap BUN Creatinine Estim Creat Clear Calc 157.8 eGFR > 60 > 60 BUN/Creatinine Ratio 14 18 Glucose 148 H Calculated Osmolality Lactic Acid Calcium Corrected Calcium Phosphorus Magnesium Total Bilirubin AST ALT Alkaline Phosphatase Total Protein Albumin Globulin Albumin/Globulin Ratio Misc Test Result 12/28/24 12/28/24 12/28/24 04:18 04:18 04:18 WBC RBC Hgb Hct MCV MCH MCHC RDW Std Deviation Plt Count Neut % (Auto) Lymph % (Auto) Dickinson % (Auto) Eos % (Auto) Baso % (Auto) Neut # (Auto) Lymph # (Auto) Dickinson # (Auto) Eos # (Auto) Baso # (Auto) Immature Gran # (Auto) Absolute Nucleated RBC Immature Gran % Nucleated RBC % Smear Path Review Puncture Site ABG pH ABG pCO2 ABG pO2 ABG HCO3 ABG O2 Saturation ABG Base Excess FiO2 Sodium Potassium Chloride Carbon Dioxide Anion Gap BUN Creatinine Estim Creat Clear Calc eGFR BUN/Creatinine Ratio Glucose 148 H Calculated Osmolality 270 L 270 L Lactic Acid Calcium 9.0 9.1 Corrected Calcium 10.4 H Phosphorus Magnesium Total Bilirubin AST ALT Alkaline Phosphatase Total Protein Albumin Globulin Albumin/Globulin Ratio [facility] [place] 12/28/24 12/28/24 12/28/24 04:18 04:18 04:18 WBC RBC Hgb Hct MCV MCH MCHC RDW Std Deviation Plt Count Neut % (Auto) Lymph % (Auto) Dickinson % (Auto) Eos % (Auto) Baso % (Auto) Neut # (Auto) Lymph # (Auto) Dickinson # (Auto) Eos # (Auto) Baso # (Auto) Immature Gran # (Auto) Absolute Nucleated RBC Immature Gran % Nucleated RBC % Smear Path Review Puncture Site ABG pH ABG pCO2 ABG pO2 ABG HCO3 ABG O2 Saturation ABG Base Excess FiO2 Sodium Potassium Chloride Carbon Dioxide Anion Gap BUN Creatinine Estim Creat Clear Calc eGFR BUN/Creatinine Ratio Glucose Calculated Osmolality Lactic Acid Calcium Corrected Calcium 10.5 H Phosphorus 2.1 L 2.1 L Magnesium 1.6 Total Bilirubin 1.2 AST 60 H ALT 50 H Alkaline Phosphatase 313 H Total Protein 5.9 Albumin 2.2 L 2.3 L Globulin 3.6 H Albumin/Globulin Ratio 0.6 L Misc Test Result Platelets confirmed 12/28/24 09:52 WBC RBC Hgb Hct MCV MCH MCHC RDW Std Deviation Plt Count Neut % (Auto) Lymph % (Auto) Dickinson % (Auto) Eos % (Auto) Baso % (Auto) Neut # (Auto) Lymph # (Auto) Dickinson # (Auto) Eos # (Auto) Baso # (Auto) Immature Gran # (Auto) Absolute Nucleated RBC Immature Gran % Nucleated RBC % Smear Path Review Puncture Site ABG pH ABG pCO2 ABG pO2 ABG HCO3 ABG O2 Saturation ABG Base Excess FiO2 Sodium 133 L Potassium 3.8 Chloride 99 Carbon Dioxide 24.2 Anion Gap 10 BUN 8 L Creatinine 0.6 Estim Creat Clear Calc 158.8 eGFR > 60 BUN/Creatinine Ratio 13 Glucose 142 H Calculated Osmolality 266 L Lactic Acid Calcium 8.9 Corrected Calcium 10.3 H Phosphorus 1.8 L Magnesium Total Bilirubin AST ALT Alkaline Phosphatase Total Protein Albumin 2.3 L Globulin Albumin/Globulin Ratio Misc Test Result ABG Interpretation ABG results: 12/22/24 12/22/24 12/23/24 16:49 23:40 13:05 ABG pH 7.39 7.29 L D ABG pCO2 33 37 ABG pO2 60 L 73 L ABG HCO3 20 18 L ABG O2 Saturation 92 94 ABG Base Excess -5 L -8 L VBG pH 7.35 VBG pCO2 37 VBG pO2 27 VBG Base Excess -5 L 12/24/24 12/24/24 12/24/24 08:54 17:12 17:19 ABG pH 7.25 L 7.16 L* ABG pCO2 34 36 ABG pO2 166 H D 127 H D ABG HCO3 15 L 13 L ABG O2 Saturation 100 H 99 H ABG Base Excess -11 L -15 L VBG pH 7.12 L VBG pCO2 42 VBG pO2 44 VBG Base Excess -15 L 12/24/24 12/24/24 12/25/24 19:45 22:40 04:47 ABG pH 7.10 L* 7.21 L D 7.36 D ABG pCO2 50 H D 38 D 37 ABG pO2 249 H D 249 H 191 H D ABG HCO3 15 L 15 L 21 ABG O2 Saturation 100 H 100 H 100 H ABG Base Excess -14 L -12 L -4 L VBG pH VBG pCO2 VBG pO2 VBG Base Excess 12/25/24 12/25/24 12/26/24 15:59 19:55 04:10 ABG pH 7.41 7.41 7.36 ABG pCO2 37 39 37 ABG pO2 128 H D 123 H 99 D ABG HCO3 23 24 21 ABG O2 Saturation 100 H 99 H 98 ABG Base Excess -1 0 -4 L VBG pH VBG pCO2 VBG pO2 VBG Base Excess 12/27/24 12/27/24 12/28/24 04:08 09:45 04:14 ABG pH 7.47 H D 7.42 7.39 ABG pCO2 36 41 45 ABG pO2 82 L 97 114 H ABG HCO3 26 27 H 27 H ABG O2 Saturation 98 99 H 99 H ABG Base Excess 2 2 2 VBG pH VBG pCO2 VBG pO2 VBG Base Excess Quality Measures Quality Measures none Assessment & Plan Assessment Current Active Medications: Generic Name Dose Route Start Last Admin Trade Name Brigida PRN Reason Stop Dose Admin Acetaminophen 650 mg 12/22/24 17:09 12/23/24 10:19 Acetaminophen 325 Mg Tablet PO 01/21/25 17:08 650 mg Q6H PRN Administration Pain 1-3 and/or Fever >100.1 Albuterol/Ipratropium 3 ml 12/23/24 09:36 Albuterol/Ipratropium (Duoneb) Rt Ginny 3 Ml Nebu INH 01/22/25 07:44 Q8HRRT PRN wheezing Clotrimazole 0 gm 12/23/24 09:00 12/28/24 08:53 Clotrimazole Cr 1% 30 Gm Tube TOP 01/22/25 08:59 1 applicatio BID TRACY Administration Dextrose 25 ml 12/22/24 17:09 12/25/24 23:07 Dextrose 50%-Water Inj 50 Ml Syringe IV 01/21/25 17:08 25 ml Q15MIN PRN Administration BG 50-70 responsive npo pt Dextrose 50 ml 12/22/24 17:09 12/25/24 14:03 Dextrose 50%-Water Inj 50 Ml Syringe IV 01/21/25 17:08 50 ml Q15MIN PRN Administration BG <50 OR BG <70 & pt unresponsive Docusate Sodium 100 mg 12/28/24 09:15 12/28/24 09:51 Docusate Sod Liqd 100 Mg/10 Ml Udc PO 01/27/25 09:14 100 mg BID TRACY Administration Protocol Glucagon 1 mg 12/22/24 17:09 Glucagon Inj 1 Mg Vial IM Q15MIN PRN BG <70, and no IV access Heparin Sodium (Porcine) 7,500 unit 12/23/24 14:00 12/28/24 14:22 Heparin Sod Inj 5000 Unit/Ml Vial SC 01/06/25 13:59 7,500 unit Q8HR TRACY Administration Heparin Sodium (Porcine) 3,000 unit 12/27/24 12:35 Heparin Sod Inj 1000 Unit/Ml [facility]ial 10 Ml [facility] 01/10/25 12:34 PRN PRN DIALYSIS Heparin Sodium (Porcine) 100 unit 12/27/24 17:00 12/28/24 14:03 Heparin Sod Inj 1000 Unit/Ml [facility]ial 10 Ml [facility] 12/28/24 16:59 100 unit Q1H TRACY Administration Hydrocortisone Sodium Succinate 50 mg 12/24/24 18:00 12/28/24 12:24 Hydrocortisone Sod Succ Inj 100 Mg 2 Ml Vial IV 01/23/25 17:59 50 mg Q6HR TRACY Administration Norepinephrine Bitartrate 16 mg in 250 mls @ 7.369 mls/hr 12/23/24 07:12 12/28/24 14:36 Levophed In Ns 16mg/250ml IV 01/22/25 07:11 0.03 mcg/kg/min .Q24H PRN 4.421 mls/hr PER protocol Titration Protocol 0.05 MCG/KG/MIN Clindamycin/Sodium Chloride 600 mg in 50 mls @ 100 mls/hr 12/23/24 09:35 12/28/24 14:22 Cleocin/Ns Ivpb IV 12/30/24 09:34 100 mls/hr Q8HR TRACY Administration Propofol 1,000 mg in 100 mls @ 4.722 mls/hr 12/24/24 16:53 12/28/24 14:15 Diprivan Ivpb IV 01/23/25 16:52 15 mcg/kg/min .[id number] PRN 14.166 mls/hr Per Protocol Titration Protocol 5 MCG/KG/MIN Fentanyl Citrate 2,500 mcg in 250 mls @ 2.5 mls/hr 12/24/24 16:55 12/28/24 14:00 Sublimaze Inj 2,500 Mcg/250 Ml Bag IV 12/29/24 16:54 225 mcg/hr .Q24H PRN 22.5 mls/hr PER PROTOCOL Titration Protocol 25 MCG/HR Vasopressin/Sodium Chloride 20 unit in 100 mls @ 9 mls/hr 12/24/24 17:09 Vasostrict/Ns Ivpb IV 01/23/25 17:08 .Q11H7M PRN PER PROTOCOL Protocol 0.03 UNIT/MIN Meropenem 1,000 mg/ Sodium 50 mls @ 100 mls/hr 12/25/24 17:00 12/28/24 14:22 Chloride IV 01/01/25 16:59 100 mls/hr Q8HR TRACY Administration Potassium Phosphate 22.5 mmol/ 507.5 mls @ 82.778 mls/hr 12/28/24 11:00 12/28/24 12:25 Sodium Chloride IV 12/28/24 17:07 82.778 mls/hr X1 ONE Administration Ondansetron HCl 4 mg 12/22/24 17:09 Ondansetron Inj 2 Mg/Ml Inj 2 Ml IVP 01/21/25 17:08 Q6H PRN NAUSEA OR VOMITING Protocol Pantoprazole Sodium 40 mg 12/25/24 11:15 12/28/24 08:52 Pantoprazole Inj 40 Mg Vial IVP 01/24/25 11:14 40 mg QDAY TRACY Administration Pharmacy Consult 1 each 12/23/24 11:15 Pharmacy Renal Dose Adjustment 1 Ea XX 01/22/25 11:14 PRN PRN CONSULT Sennosides 1 tab 12/22/24 17:09 Senna Tablet PO 01/21/25 17:08 QDAY PRN constipation Protocol Plan 54-year-old female with past medical history of prior SC, insulin-dependent type 2 diabetes, lymphedema, lipedema, asthma, epilepsy, morbid obesity, nonambulatory status for 9 years, and wheelchair-bound status presenting to the ED on 12/22 with left lower extremity pain and oozing. [employer] was called due to hypotension and, despite aggressive fluid resuscitation, patient remained persistently hypotensive. However, nursing staff was having a hard time to obtain accurate measurement due to body habitus. Repeat labs did revealed lactic acidosis which did not improved even after 5 L of fluids, Cheetah monitor was placed, patient found to be not fluid responsive. At this point decision was made to upgrade patient to ICU for pressor support. Overnight, patient's total UOP was 30 cc (average rate of 2.5 cc/hr), suggesting that renal function continues to be impaired. Patient was examined at bedside; her cellulitis continues to remain contained similar to yesterday without any new spread beyond demarcation borders. Additionally, her lactic acid (while on CRRT) has continued to downtrend and was last seen at 2.5. Pertinent labs today include WBC 33.1 -> 48.2, platelet count 26 -> 23, corrected calcium 10.2 -> 10.5, phosphorus 2.5 -> 2.1, and magnesium 1.7 -> 1.6. ABG from this morning was favorable and patient's transaminitis is downtrending. Patient's daughter Brianna called regarding patient's status and it was once again emphasized to her the patient's poor prognosis and high potential for sudden deterioration and ; Brianna voiced understanding of this and all questions were answered. In terms of management changes today, another blood culture was ordered to assess for any new infectious etiologies due to patient's continually up trending WBC, and patient was started on a bowel regimen of PO Colace 100 mg BID and given PO lactulose 40 gm x 1 (which allowed her to have a large BM today for the first time in 3 days). 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 However, she developed hypotension refractory to aggressive fluid resuscitation with accompanying lactic acidosis and was admitted to the ICU for pressor support. She was started on Levophed through a peripheral IV but this led to extravasation and phentolamine had to be infused around the site. Patient's ongoing hypotension is now understood to be due to toxic shock syndrome (had been suspected early due to patient's concomitant drop in platelets and other labs suggesting some level of DIC) from the spread of S treptococcus pyogenes from her cellulitis to the bloodstream (confirmed by blood culture) Cardiogenic etiology less likely due to bedside echocardiogram showing seemingly adequate contractility without large pericardial effusion. Obstructive etiology less likely due to absence of pneumothorax or PE. Hypovolemic etiology less likely due to lack of BP improvement with aggressive fluid resuscitation in the setting of no active bleeding Importantly, clindamycin is unique as an antibiotic for treatment of TSS in that it binds to the 50S ribosomal subunit of bacteria and directly suppresses synthesis of exotoxins like Toxic Shock Syndrome Toxin-1 (TSST-1) and enterotoxins produced by Streptococcus pyogenes Dx: -12/22 BCx (04/01) grew zaman-sensitive Streptococcus pyogenes (Group A Streptococcus) -12/22 echocardiogram showed reduced EF of 45% Rx: -s/p completion of IVIG administration x 3 [12/23-12/25] -Monitor hemodynamics and titrate pressor support as appropriate to maintain MAP > 65 using BP measured by arterial line -Stress dose IV hydrocortisone 50 mg q6HR for refractory distributive shock [12/24--] -Antibiotic regimen as detailed in ID section RRx: -Vasopressor needs remain unchanged, currently 0.03 Levophed #Atrial fibrillation w/ RVR on amiodarone infusion Patient has been having atrial fibrillation w/ RVR throughout her stint in the ICU but has converted to sinus rhythm s/p amiodarone drip and is not currently experiencing ongoing atrial fibrilation #Acute systolic and diastolic dysfunction w/ mildly reduced EF [40-45%] DDx: septic cardiomyopathy, ischemic cardiomyopathy Dx: -12/22 echocardiogram showed reduced EF of 45% Rx: -Further evaluation in the outpatient setting Respiratory #Acute respiratory failure with hypoxia requiring intubation and mechanical ventilation 2/2 severe metabolic acidosis Dx: -ABG today was favorable Rx: -Continue intubation and mechanical ventilation (not fit for SBT) -Continue IV Protonix 40 mg qD for GI prophylaxis due to patient's intubated status RRx: -Follow up on repeat ABG and adjust ventilator settings accordingly Renal #Acute renal failure likely 2/2 shock and ATN on CRRT Creatinine initially elevated upon admission at 1.8 and had slowly up-trended Baseline creatinine used to be WNL but last lab was from a few years ago However, patient was noted to have almost no UOP for days despite adequate fluid resuscitation, suggesting YOU 2/2 ATN 2/2 renal hypoperfusion Dx: -Patient's total UOP was 30 cc (average rate of 2.5 cc/hr), suggesting that renal function continues to be impaired Rx: -CRRT as needed per Nephrology recommendations -Strict I's & O's -Avoid nephrotoxins #Lactic acidosis 2/2 toxic shock syndrome (resolving) #Anion gap metabolic acidosis (resolving) Patient presented with significant lactic acidosis likely 2/2 toxic shock syndrome and YOU that peaked at 10.0 despite receiving broad-coverage antibiotics, which raised concerns for ongoing necrosis or compartment syndrome occurring occultly in patient's extremely lymphedematous legs (resulting in efforts to transfer her for radical surgical intervention at a facility that could offer more specialized care) However, it has now been downtrending and was most recently seen at 2.5 (in the setting of ongoing CRRT), signaling that any dangerous cause of ongoing lactic acidosis (compartment syndrome, necrosis) seems to have slowed or stopped Dx: -LA 2.5 (ongoing CRRT) -12/26 Bilateral lower extremity venous Doppler ultrasound ruled out cerulea dolens 2/2 extensive DVT -12/26 Bedside arterial duplex of dorsalis pedis confirmed blood flow to both feet Rx: -General Surgery (Dr. Hines) consulted regarding possible surgical decompression/debridement options as well as opinions on the viability of transferring patient to another facility for [id number] -Transfer nurse contacted to initiate proceedings necessary to possible transfer (however, due to halt of cellulitic spread and resolving lactic acidosis, pursuit of transfer has been deferred for now) -Treat underlying cause (toxic shock syndrome) #Electrolyte derangements #Hypercalcemia #Hypophosphatemia Today, corrected calcium 10.2 -> 10.5, phosphorus 2.5 -> 2.1 Rx: -Monitor CMP, correct electrolytes as appropriate GI #Transaminitis In the setting of ongoing toxic shock syndrome, downtrending #Constipation Patient has not had a BM for about 3 days now Rx: -PO Colace 100 mg BID scheduled -PO lactulose 40 gm x 1 RRx: -After starting bowel regimen today, patient had a large BM Endocrine #T2DM Reported in previous charts No hemoglobin A1c recorded in [facility] medical records actually meeting criteria for T2DM Rx: -Tube feeds @ 20 mL / hr and 30 mL/hr flushes -SF Prostat 30 mL BID -Blood sugar check q1HR Heme #Thrombocytopenia Likely 2/2 a combination of causes including sepsis, DIC, purpura fulminans Dx: -Platelet count down to 23 from 26 yesterday Rx: -Continue to monitor CBC and for signs of active bleeding -Transfuse platelets if platelets less than 50 with active bleeding or less than 15 RRx: -Thrombocytopenia appears stable for now #Coagulopathy 2/2 toxic shock syndrome - possible DIC Patient had elevated INR, elevated D-Dimer, and elevated fibrinogen early in her ICU admission which suggested the presence of low-level DIC Dx: -Elevated INR, elevated D-Dimer, and elevated fibrinogen suggestive of low level DIC Rx: -Consider trending coagulation panels RRx: -PT, APTT, fibrinogen, and D-dimer remain elevated at this time but 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) pending #Leukocytosis #??Leukemoid reaction In the setting of ongoing toxic shock syndrome, infection, and steroid medications However, has continued to uptrend while on antibiotics for treatment of toxic shock syndrome Currently suspect this is a benign leukemoid reaction in the setting of acute illness DDx: occult infection due to bacterial (Clostridioides difficile from clindamycin use) or commensal fungal overgrowth Dx: -WBC now 48.2 from 33.1 -Patient remains afebrile Rx: -Ordered blood cultures due to concerns for possible new bacteremia or fungemia ID #Cellulitis #Streptococcus pyogenes bacteremia #Chronic bilateral lower extremity lymphedema Likely source of sepsis and precipitating toxic shock syndrome As mentioned earlier in the Cardiovascular section, clindamycin is unique as an antibiotic for treatment of TSS in that it binds to the 50S ribosomal subunit of bacteria and directly suppresses synthesis of exotoxins like Toxic Shock Syndrome Toxin-1 (TSST-1) and enterotoxins produced by Streptococcus pyogenes Timeline of antibiotic regimen detailed below: 1. IV vancomycin dosed by pharmacy [12/22-12/25, discontinued due to MRSA(-)] 2. IV clindamycin 600 mg q8HR [12/22-01/01] 3. IV cefepime 2 gm q12HR [12/22-12/24, discontinued after TSS became favored diagnosis] 4. IV meropenem 1000 mg q8HR [12/24-01/01] Dx: -12/22 BCx (04/01) grew zaman-sensitive Streptococcus pyogenes (Group A Streptococcus) Rx: -Current active antibiotic regimen: IV meropenem 1000 mg q8HR [12/24-01/04] and IV clindamycin 600 mg q8HR [12/22-01/04] to complete a [id number] of antibiotics for treatment of toxic shock syndrome RRx: -Patient is on broad-spectrum coverage but WBC continues to uptrend (possibly leukemoid reaction) Disposition: Patient continues to meet criteria for ongoing ICU management due to continued need for pressors and intubation. DVT prophylaxis: Heparin 7500 q8HR GI prophylaxis: IV Protonix 40 mg qD Diet: Tube Feeds @ 20 mL / hr with 30 cc/hr water flushes [place]: Present Lines: Peripheral IV, Central IV, arterial line Antibiotics: IV meropenem 1000 mg q8HR [12/24-01/04] and IV clindamycin 600 mg q8HR [12/22-01/04] CODE STATUS: FULL (consider recommending DNR/DNI to Decision Maker) Patient plan of care was discussed with the attending cupola liner helper, Dr. Zion Dykes, DO Internal Medicine, PGY-1
--- NOTE | 2024-12-28 15:37 | PC.SS ---
Update: Patient remains intubated/sedated. OG tube in place. Trickle feeds. Patient receiving pressor support. Afebrile. Patient receiving dialysis today. Wound care, surgery and nephrology are consulting.
[2024-12-28 16:59] LABS: Albumin, Serum 2.2 gm/dL (3.5-5.0); Anion Gap 8 (7-16); BUN/Creatinine Ratio 17 Ratio (12-20); Blood Urea Nitrogen 10 mg/dL (9-23); Calcium 9.2 mg/dL (8.3-10.6); Calcium (Corrected) 10.6 mg/dL (8.5-10.1); Carbon Dioxide 27.9 mMol/L (20.0-31.0); Chloride 99 mMol/L (98-107); Creatinine (Component) 0.6 mg/dL (0.6-1.3); Estimated Creatinine Clearance 158.8 mL/min (>60); Glucose 160 mg/dL (74-106); Osmolality,Calculated 272 (275-295); Phosphorous 2.3 mg/dL (2.4-5.1); Potassium 3.9 mMol/L (3.4-5.1); Sodium 135 mMol/L (136-145); eGFR > 60 See Note
--- NOTE | 2024-12-28 17:30 | ESOP_ITS ---
PROCEDURES: Procedure Date / Time 12/28/24 6913 Arterial Line Indication(s): frequent arterial line sampling, hypoxic resp failure, shock and inability to monitor non-invasive BP Informed consent obtained: procedure done urgently Time out done, and the following verified: correct patient, side and site, procedure, patient position and implants and/or equipment Size (Gauge): 20 Technique used: guide wire technique Post-Procedure: line sutured into place and dry sterile dressing placed Patient tolerated procedure: well and no complications EBL(ml): 5 Complications: none Site: right and radial Procedure comment: Procedure performed under supervision of Dr. Donovan. Carlos Duncan MD, PGY 3. Disclaimer: This note was dictated by speech recognition. Minor errors in payroll accounting manager may be present due to voice recognition software.
--- NOTE | 2024-12-28 18:30 | ESPR_ITS ---
<Statement entered by Urszula Eagle MD - 12/29/24 08:32> I personally examined evaluate the patient intensive care unit with PGY [address] Anthony Jimenez patient is critically ill not doing well has multisystem failure A-fib is converted to sinus rhythm now sinus tachycardia amiodarone converted to sinus rhythm. She is still on norepinephrine IV hemodynamically unstable undergoing dialysis sled tolerating well so far but patient is probably extremely poor because septic shock as well as cardiac arrhythmias acute renal failure multiorgan failure extreme and morbid obesity with extensive lymphedema and cellulitis. Evaluated patient with resident physician and agree with treatment plan recommendation continue amiodarone for now. Documentation for date of: 12/28/24 Subjective Subjective Interval history: Patient was seen and examined at bedside. Patient remain intubated and mechanically ventilated Heart rate was 116, blood pressure was 91/55 on norepinephrine drip. Her labs showed WBC increased to 48.1, hemoglobin 10.3, platelets 23, potassium today 3.8, serum creatinine 0.6, magnesium 1.6 patient amiodarone was stopped by the primary team as the patient converted to sinus rhythm Exam Vital Signs Temp Pulse Resp BP Pulse Ox O2 Del Method O2 Flow Rate 96.4 F L 118 H 19 101/73 100 Mechanical Ventilation 12/28/24 17:00 12/28/24 17:30 12/28/24 17:00 12/28/24 17:30 12/28/24 17:30 12/27/24 18:00 12/28/24 17:00 FiO2 12/28/24 17:00 Narrative Exam GENERAL: Patient is intubated and mechanically ventilated. Remains on sedation. RASS score of -3. HEENT: NC/AT, trachea appears midline, androgenic hair distribution on the chin CARDIOVASCULAR: regular rhythm, tachycardic PULMONARY: symmetric chest rise, on vent, decreased air entry bilaterally due to body habitus ABDOMINAL: soft, non-distended, bowel sounds present EXTREMITIES: Severe left leg swelling with severe hyperkeratotic changes. There is also oozing of yellowish serous fluid with mild erythema specially on the L thigh. Right leg also has hyperkeratotic changes up to the mid espinoza of the right leg. Patient cellulitis continued to worsen. Appears to be increasing diameter beyond the demarcation. Continue to have yellow bloody discharge for oozing. NEURO: limited due to patient mental status and intubation Objective Labs 12/28/24 04:18 12/28/24 16:00 Labs: Laboratory Results - last 24 hr 12/27/24 12/28/24 12/28/24 21:45 04:14 04:18 WBC 48.2 H* D RBC 4.00 Hgb 10.3 L Hct 31.5 L MCV 79 L MCH 25.8 MCHC 32.7 RDW Std Deviation 52.6 H Plt Count 23 L* Neut % (Auto) 79 Lymph % (Auto) 7 L [place] % (Auto) 4 Eos % (Auto) 0 Baso % (Auto) 0 Neut # (Auto) 38.0 H Lymph # (Auto) 3.2 Latimer # (Auto) 1.7 H Eos # (Auto) 0.0 Baso # (Auto) 0.0 Immature Gran # (Auto) 5.26 H Absolute Nucleated RBC 0.22 H Immature Gran % 11 H Nucleated RBC % 1 H Smear Path Review Sent to Pathologist Puncture Site Arterial Line ABG pH 7.39 ABG pCO2 45 ABG pO2 114 H ABG HCO3 27 H ABG O2 Saturation 99 H ABG Base Excess 2 FiO2 30 Sodium 134 L 134 L Potassium 3.8 Chloride 98 Carbon Dioxide 24.9 Anion Gap 11 BUN 9 Creatinine 0.7 Estim Creat Clear Calc 135.3 eGFR > 60 BUN/Creatinine Ratio 13 Glucose 143 H Calculated Osmolality 268 L Lactic Acid 2.5 H Calcium 8.8 Corrected Calcium 10.2 H Phosphorus 2.5 Magnesium Total Bilirubin AST ALT Alkaline Phosphatase Total Protein Albumin 2.3 L Globulin Albumin/Globulin Ratio [facility] Test Result 12/28/24 12/28/24 12/28/24 04:18 04:18 04:18 WBC RBC Hgb Hct MCV MCH MCHC RDW Std Deviation Plt Count Neut % (Auto) Lymph % (Auto) Latimer % (Auto) Eos % (Auto) Baso % (Auto) Neut # (Auto) Lymph # (Auto) [place]imer # (Auto) Eos # (Auto) Baso # (Auto) Immature Gran # (Auto) Absolute Nucleated RBC Immature Gran % Nucleated RBC % Smear Path Review Puncture Site ABG pH ABG pCO2 ABG pO2 ABG HCO3 ABG O2 Saturation ABG Base Excess FiO2 Sodium 134 L Potassium 3.8 3.8 Chloride 98 98 Carbon Dioxide 25.1 Anion Gap BUN Creatinine Estim Creat Clear Calc eGFR BUN/Creatinine Ratio Glucose Calculated Osmolality Lactic Acid Calcium Corrected Calcium Phosphorus Magnesium Total Bilirubin AST ALT Alkaline Phosphatase Total Protein Albumin Globulin Albumin/Globulin Ratio Misc Test Result 12/28/24 12/28/24 12/28/24 04:18 04:18 04:18 WBC RBC Hgb Hct MCV MCH MCHC RDW Std Deviation Plt Count Neut % (Auto) Lymph % (Auto) Latimer % (Auto) Eos % (Auto) Baso % (Auto) Neut # (Auto) Lymph # (Auto) [place] # (Auto) Eos # (Auto) Baso # (Auto) Immature Gran # (Auto) Absolute Nucleated RBC Immature Gran % Nucleated RBC % Smear Path Review Puncture Site ABG pH ABG pCO2 ABG pO2 ABG HCO3 ABG O2 Saturation ABG Base Excess FiO2 Sodium Potassium Chloride Carbon Dioxide 25.6 Anion Gap 11 10 BUN 10 11 Creatinine 0.7 Estim Creat Clear Calc eGFR BUN/Creatinine Ratio Glucose Calculated Osmolality Lactic Acid Calcium Corrected Calcium Phosphorus Magnesium Total Bilirubin AST ALT Alkaline Phosphatase Total Protein Albumin Globulin Albumin/Globulin Ratio Misc Test Result 12/28/24 12/28/24 12/28/24 04:18 04:18 04:18 WBC RBC Hgb Hct MCV MCH MCHC RDW Std Deviation Plt Count Neut % (Auto) Lymph % (Auto) [place]imer % (Auto) Eos % (Auto) Baso % (Auto) Neut # (Auto) Lymph # (Auto) [place] # (Auto) Eos # (Auto) Baso # (Auto) Immature Gran # (Auto) Absolute Nucleated RBC Immature Gran % Nucleated RBC % Smear Path Review Puncture Site ABG pH ABG pCO2 ABG pO2 ABG HCO3 ABG O2 Saturation ABG Base Excess FiO2 Sodium Potassium Chloride Carbon Dioxide Anion Gap BUN Creatinine 0.6 Estim Creat Clear Calc 135.3 157.8 eGFR > 60 > 60 BUN/Creatinine Ratio 14 Glucose Calculated Osmolality Lactic Acid Calcium Corrected Calcium Phosphorus Magnesium Total Bilirubin AST ALT Alkaline Phosphatase Total Protein Albumin Globulin Albumin/Globulin Ratio Misc Test Result 12/28/24 12/28/24 12/28/24 04:18 04:18 04:18 WBC RBC Hgb Hct MCV MCH MCHC RDW Std Deviation Plt Count Neut % (Auto) Lymph % (Auto) [place] % (Auto) Eos % (Auto) Baso % (Auto) Neut # (Auto) Lymph # (Auto) [place]imer # (Auto) Eos # (Auto) Baso # (Auto) Immature Gran # (Auto) Absolute Nucleated RBC Immature Gran % Nucleated RBC % Smear Path Review Puncture Site ABG pH ABG pCO2 ABG pO2 ABG HCO3 ABG O2 Saturation ABG Base Excess FiO2 Sodium Potassium Chloride Carbon Dioxide Anion Gap BUN Creatinine Estim Creat Clear Calc eGFR BUN/Creatinine Ratio 18 Glucose 148 H 148 H Calculated Osmolality 270 L 270 L Lactic Acid Calcium 9.0 Corrected Calcium Phosphorus Magnesium Total Bilirubin AST ALT Alkaline Phosphatase Total Protein Albumin Globulin Albumin/Globulin Ratio Mis Test Result 12/28/24 12/28/24 12/28/24 04:18 04:18 04:18 WBC RBC Hgb Hct MCV MCH MCHC RDW Std Deviation Plt Count Neut % (Auto) Lymph % (Auto) [place]imer % (Auto) Eos % (Auto) Baso % (Auto) Neut # (Auto) Lymph # (Auto) [place] # (Auto) Eos # (Auto) Baso # (Auto) Immature Gran # (Auto) Absolute Nucleated RBC Immature Gran % Nucleated RBC % Smear Path Review Puncture Site ABG pH ABG pCO2 ABG pO2 ABG HCO3 ABG O2 Saturation ABG Base Excess FiO2 Sodium Potassium Chloride Carbon Dioxide Anion Gap BUN Creatinine Estim Creat Clear Calc eGFR BUN/Creatinine Ratio Glucose Calculated Osmolality Lactic Acid Calcium 9.1 Corrected Calcium 10.4 H 10.5 H Phosphorus 2.1 L 2.1 L Magnesium 1.6 Total Bilirubin 1.2 AST 60 H ALT 50 H Alkaline Phosphatase 313 H Total Protein 5.9 Albumin 2.2 L Globulin Albumin/Globulin Ratio [facility] Test Result 12/28/24 12/28/24 12/28/24 04:18 09:52 16:00 WBC RBC Hgb Hct MCV MCH MCHC RDW Std Deviation Plt Count Neut % (Auto) Lymph % (Auto) [place] % (Auto) Eos % (Auto) Baso % (Auto) Neut # (Auto) Lymph # (Auto) [place] # (Auto) Eos # (Auto) Baso # (Auto) Immature Gran # (Auto) Absolute Nucleated RBC Immature Gran % Nucleated RBC % Smear Path Review Puncture Site ABG pH ABG pCO2 ABG pO2 ABG HCO3 ABG O2 Saturation ABG Base Excess FiO2 Sodium 133 L 135 L Potassium 3.8 3.9 Chloride 99 99 Carbon Dioxide 24.2 27.9 Anion Gap 10 8 BUN 8 L 10 Creatinine 0.6 0.6 Estim Creat Clear Calc 158.8 158.8 eGFR > 60 > 60 BUN/Creatinine Ratio 13 17 Glucose 142 H 160 H Calculated Osmolality 266 L 272 L Lactic Acid Calcium 8.9 9.2 Corrected Calcium 10.3 H 10.6 H Phosphorus 1.8 L 2.3 L Magnesium Total Bilirubin AST ALT Alkaline Phosphatase Total Protein Albumin 2.3 L 2.3 L 2.2 L Globulin 3.6 H Albumin/Globulin Ratio 0.6 L Misc Test Result Platelets confirmed ABG Interpretation ABG results: 12/22/24 12/22/24 12/23/24 16:49 23:40 13:05 ABG pH 7.39 7.29 L D ABG pCO2 33 37 ABG pO2 60 L 73 L ABG HCO3 20 18 L ABG O2 Saturation 92 94 ABG Base Excess -5 L -8 L VBG pH 7.35 VBG pCO2 37 VBG pO2 27 VBG Base Excess -5 L 12/24/24 12/24/24 12/24/24 08:54 17:12 17:19 ABG pH 7.25 L 7.16 L* ABG pCO2 34 36 ABG pO2 166 H D 127 H D ABG HCO3 15 L 13 L ABG O2 Saturation 100 H 99 H ABG Base Excess -11 L -15 L VBG pH 7.12 L VBG pCO2 42 VBG pO2 44 VBG Base Excess -15 L 12/24/24 12/24/24 12/25/24 19:45 22:40 04:47 ABG pH 7.10 L* 7.21 L D 7.36 D ABG pCO2 50 H D 38 D 37 ABG pO2 249 H D 249 H 191 H D ABG HCO3 15 L 15 L 21 ABG O2 Saturation 100 H 100 H 100 H ABG Base Excess -14 L -12 L -4 L VBG pH VBG pCO2 VBG pO2 VBG Base Excess 12/25/24 12/25/24 12/26/24 15:59 19:55 04:10 ABG pH 7.41 7.41 7.36 ABG pCO2 37 39 37 ABG pO2 128 H D 123 H 99 D ABG HCO3 23 24 21 ABG O2 Saturation 100 H 99 H 98 ABG Base Excess -1 0 -4 L VBG pH VBG pCO2 VBG pO2 VBG Base Excess 12/27/24 12/27/24 12/28/24 04:08 09:45 04:14 ABG pH 7.47 H D 7.42 7.39 ABG pCO2 36 41 45 ABG pO2 82 L 97 114 H ABG HCO3 26 27 H 27 H ABG O2 Saturation 98 99 H 99 H ABG Base Excess 2 2 2 VBG pH VBG pCO2 VBG pO2 VBG Base Excess Quality Measures Quality Measures none Assessment & Plan Assessment Current Active Medications: Generic Name Dose Route Start Last Admin Trade Name Freq PRN Reason Stop Dose Admin Acetaminophen 650 mg 12/22/24 17:09 12/23/24 10:19 Acetaminophen 325 Mg Tablet PO 01/21/25 17:08 650 mg Q6H PRN Administration Pain 1-3 and/or Fever >100.1 Albuterol/Ipratropium 3 ml 12/23/24 09:36 Albuterol/Ipratropium (Duoneb) Rt Ginny 3 Ml Nebu INH 01/22/25 07:44 Q8HRRT PRN wheezing Clotrimazole 0 gm 12/23/24 09:00 12/28/24 08:53 Clotrimazole Cr 1% 30 Gm Tube TOP 01/22/25 08:59 1 applicatio BID TRACY Administration Dextrose 25 ml 12/22/24 17:09 12/25/24 23:07 Dextrose 50%-Water Inj 50 Ml Syringe IV 01/21/25 17:08 25 ml Q15MIN PRN Administration BG 50-70 responsive npo pt Dextrose 50 ml 12/22/24 17:09 12/25/24 14:03 Dextrose 50%-Water Inj 50 Ml Syringe IV 01/21/25 17:08 50 ml Q15MIN PRN Administration BG <50 OR BG <70 & pt unresponsive Docusate Sodium 100 mg 12/28/24 09:15 12/28/24 09:51 Docusate Sod Liqd 100 Mg/10 Ml Udc PO 01/27/25 09:14 100 mg BID TRACY Administration Protocol Glucagon 1 mg 12/22/24 17:09 Glucagon Inj 1 Mg Vial IM Q15MIN PRN BG <70, and no IV access Heparin Sodium (Porcine) 7,500 unit 12/23/24 14:00 12/28/24 14:22 Heparin Sod Inj 5000 Unit/Ml Vial SC 01/06/25 13:59 7,500 unit Q8HR TRACY Administration Heparin Sodium (Porcine) 3,000 unit 12/27/24 12:35 Heparin Sod Inj 1000 Unit/Ml Vial 10 Ml INDWELLCAT 01/10/25 12:34 PRN PRN DIALYSIS Hydrocortisone Sodium Succinate 50 mg 12/24/24 18:00 12/28/24 17:45 Hydrocortisone Sod Succ Inj 100 Mg 2 Ml Vial IV 01/23/25 17:59 50 mg Q6HR TRACY Administration Norepinephrine Bitartrate 16 mg in 250 mls @ 7.369 mls/hr 12/23/24 07:12 12/28/24 18:00 Levophed In Ns 16mg/250ml IV 01/22/25 07:11 0.03 mcg/kg/min .Q24H PRN 4.421 mls/hr PER protocol Titration Protocol 0.05 MCG/KG/MIN Clindamycin/Sodium Chloride 600 mg in 50 mls @ 100 mls/hr 12/23/24 09:35 12/28/24 14:22 Cleocin/Ns Ivpb IV 12/30/24 09:34 100 mls/hr Q8HR TRACY Administration Propofol 1,000 mg in 100 mls @ 4.722 mls/hr 12/24/24 16:53 12/28/24 16:00 Diprivan Ivpb IV 01/23/25 16:52 Infused .[id number] PRN Titration Per Protocol Protocol 5 MCG/KG/MIN Fentanyl Citrate 2,500 mcg in 250 mls @ 2.5 mls/hr 12/24/24 16:55 12/28/24 18:00 Sublimaze Inj 2,500 Mcg/250 Ml Bag IV 12/29/24 16:54 175 mcg/hr .Q24H PRN 17.5 mls/hr PER PROTOCOL Titration Protocol 25 MCG/HR Vasopressin/Sodium Chloride 20 unit in 100 mls @ 9 mls/hr 12/24/24 17:09 Vasostrict/Ns Ivpb IV 01/23/25 17:08 .[id number] PRN PER PROTOCOL Protocol 0.03 UNIT/MIN Meropenem 1,000 mg/ Sodium 50 mls @ 100 mls/hr 12/25/24 17:00 12/28/24 14:22 Chloride IV 01/01/25 16:59 100 mls/hr Q8HR TRACY Administration Ondansetron HCl 4 mg 12/22/24 17:09 Ondansetron Inj 2 Mg/Ml Inj 2 Ml IVP 01/21/25 17:08 Q6H PRN NAUSEA OR VOMITING Protocol Pantoprazole Sodium 40 mg 12/25/24 11:15 12/28/24 08:52 Pantoprazole Inj 40 Mg Vial IVP 01/24/25 11:14 40 mg QDAY TRACY Administration Pharmacy Consult 1 each 12/23/24 11:15 Pharmacy Renal Dose Adjustment 1 Ea XX 01/22/25 11:14 PRN PRN CONSULT Sennosides 1 tab 12/22/24 17:09 Senna Tablet PO 01/21/25 17:08 QDAY PRN constipation Protocol Plan Summary:A 54-year-old female patient with past medical history of insulin- dependent diabetes mellitus, bilateral lower limb lymphedema, lipedema, asthma, epilepsy, morbid obesity, wheelchair-bound for 9 years, was brought to the ED on 22 December due to left lower extremity pain and clear cirrhosis fluid oozing. Patient was admitted to the ICU for distributive shock. Cardiology team was consulted because of new onset A-fib with RVR and newly diagnosed CHF. #Newly diagnosed HFrEF (40-45%, 11/2024) #New onset A-fib with RVR likely induced by shock state #Streptococcus pyogenes bacteremia 2/ LLE cellulitis Patient presented with sepsis secondary to left leg cellulitis, her condition worsened to distributive shock. During her stay she developed A-fib with RVR, with no known hx of afib, we started the patient on amiodarone drip. Even though her body habitus echo was done and showed ejection fraction of 40 to 45%. With normal RV function. BNP was 204 which most likely skewed by patient obesity. Troponin was negative. 12/22/24 Echo showed Over all poor images due to body habitus and technically difficult study. Normal left ventricular size and function.Stage I diastolic dysfunction. Estimated ejection fraction is 40-45%. Normal right ventricular size and function. RVSP 39 mm Hg with RAP 8. Mild pulmonary HTN Trace MR and Mild TR. TDS due to patient morbid and laying on supine view, couldn't move. (patient had open wounds under breast) 12/25/2024 patient was started on CRRT due to worsening lactic acidosis and kidney function, blood culture growing Streptococcus pyogenes. 12/27/2024, Amidrine drip was stopped by the primary team as the patient converted to sinus rhythm. Patient was having tachycardia heart rate of 113 however it was regular sinus. Plan ? Patient amiodarone drip was stopped by the primary team as the patient converted to sinus rhythm, consider resuming amiodarone drip if patient go back again to A-fib with RVR ? Due to patient condition no invasive cardiac procedure will be done at this time ? Strict in and out ? Keep potassium and magnesium above 4 and 2 respectively within normal range ? Will start the patient on GDMT as soon as her general condition improved #Distributive shock most likely secondary to sepsis #Sepsis secondary to left leg cellulitis #Toxic shock syndrome #Lower extremity lymphedema Plan ? Patient was started on Clindamycin, meropenem by the primary team, patient was also given IgG immunoglobulin ? Patient on norepinephrine drip and vasopressin for distributive shock #History of seizure disorder Patient on antiseizure meds #Concern of DIC #History of COPD Supplemental oxygen, BiPAP as needed, DuoNebs #Elevated bilirubin, elevated AST, hypoalbuminemia Secondary to toxic shock syndrome versus septic shock Follow primary team recommendations #Lactic acidosis improving s/p CRRT #YOU #Non-anion gap metabolic acidosis Thank you for your consultation, please do not hesitate to reach out if you have any question or concern - Patient's plan and care discussed with my attending, Dr. Fco Fuller MD Internal Medicine PGY-3
[2024-12-28] MEDS: fentaNYL 2,500 MCG/250 ML BAG 2,500 MCG/250 ML BAG 17.5 MCG IV (23:30)
[2024-12-29] VITALS (111 sets, daily range): BP systolic 0–174; BP diastolic 0–135; PULSE 111–152; RESP 14–37; TEMP 36–37; O2SAT 83–100
[2024-12-29] MEDS: HYDROCORTISONE SOD SUCC INJ 100 MG 2 ML VIAL 50 MG IV ×4 (00:19→17:58)
--- NOTE | 2024-12-29 01:20 | PD.RESPROC ---
PROCEDURES: Procedure Date / Time 12/29/24 0120 Arterial Line Indication(s): frequent arterial line sampling, hypoxic resp failure, shock and inability to monitor non-invasive BP Informed consent obtained: procedure done urgently Time out done, and the following verified: correct patient, side and site, procedure, patient position and implants and/or equipment Size (Gauge): 20 Technique used: direct puncture technique Post-Procedure: line sutured into place and dry sterile dressing placed Patient tolerated procedure: well EBL(ml): 1 Complications: none Site: right and radial Procedure comment: Under sterile conditions and after obtaining informed consent, a radial arterial line was placed in the right wrist for continuous blood pressure monitoring and arterial blood sampling. The Bg?s test was performed pre-procedure and confirmed adequate collateral circulation. The site was prepped with chlorhexidine and draped in a sterile fashion. Local anesthesia was achieved with 1% lidocaine. A 20-gauge arterial catheter was inserted using the modified Seldinger technique without complication. Good blood return was noted, and the catheter was secured in place with sterile dressing. Continuous waveform tracing confirmed proper placement. The patient tolerated the procedure well without immediate complications.
[2024-12-29] MEDS: PROPOFOL 1,000 MG IVPB 1,000 MG/100 ML VIAL 14.166 MG IV ×3 (03:00→20:19)
[2024-12-29 04:45] LABS: Base Excess 1 (-3-3); HCO3 27 mEq/L (20-26); Inspired Oxygen, FIO2 30 %; O2 Saturation 99 % (91-98); PCO2 46 mmHg (32.0-48.0); PO2 109 mmHg (83-108); pH, Arterial 7.38 (7.35-7.45)
[2024-12-29 04:52] LABS: Allen Test Not Performed; Puncture Site Arterial Line
[2024-12-29] MEDS: HEPARIN SOD INJ 5000 UNIT/ML VIAL 7500 UNIT SC (05:12)
[2024-12-29] MEDS: CLINDAMYCIN/NS 600 MG IVPB 600 MG/50 ML BAG 100 MG IV ×3 (05:12→22:18)
[2024-12-29] MEDS: MEROPENEM INJ 1,000 MG in SODIUM CHLORIDE 0.9% (Popper) 50 ML 100 MG IV ×3 (05:13→22:19)
[2024-12-29 06:05] LABS: Basophils # (Auto) 0.0 Thou/mm3 (0.0-0.2); Basophils % (Auto) 0 % (0-2.5); Eosinophils # (Auto) 0.0 Thou/mm3 (0.0-0.5); Eosinophils % (Auto) 0 % (0-10); Hematocrit 27.7 % (36.0-46.0); Hemoglobin 9.1 g/dL (12.0-16.0); Immature Granulocytes Auto 3.85 Thou/mm3 (0.00-0.00); Lymphocytes # (Auto) 2.9 Thou/mm3 (1.0-4.8); Lymphocytes % (Auto) 7 % (10-50); Mean Corpuscular HGB Conc 32.9 g/dl (31.0-37.0); Mean Corpuscular Hemoglobin 25.9 pg (25.0-35.0); Mean Corpuscular Volume 79 fL (80-100); Monocytes # (Auto) 1.4 Thou/mm3 (0.0-0.8); Monocytes % (Auto) 4 % (0-12); Neutrophils # (Auto) 30.2 Thou/mm3 (1.8-7.7); Neutrophils % (Auto) 79 % (37-80); Nucleated Red Blood Cell # 0.19 Thou/mm3 (0.00-0.00); Nucleated Red Blood Cell % 1 /100 WBC (0); RDW Standard Deviation 51.9 fL (36.4-46.3); Red Blood Count 3.51 Miln/mm3 (4.00-5.20)
[2024-12-29 06:07] LABS: Platelet Count 13 Thou/mm3 (140-440); White Blood Count 38.3 Thou/mm3 (3.6-11.0)
[2024-12-29 06:29] LABS: Slide Review Platelets confirmed
[2024-12-29 06:40] LABS: Alanine Aminotransferase 44 U/L (10-49); Albumin, Serum 2.2 gm/dL (3.5-5.0); Albumin/Globulin Ratio 0.6 (1.2-2.2); Alkaline Phosphatase 297 U/L (46-116); Anion Gap 9 (7-16); Aspartate Amino Transferase 45 U/L (0-34); BUN/Creatinine Ratio 21 Ratio (12-20); Bilirubin,Total 1.2 mg/dL (0.3-1.2); Blood Urea Nitrogen 23 mg/dL (9-23); Calcium 9.1 mg/dL (8.3-10.6); Calcium (Corrected) 10.5 mg/dL (8.5-10.1); Carbon Dioxide 27.7 mMol/L (20.0-31.0); Chloride 99 mMol/L (98-107); Creatinine (Component) 1.1 mg/dL (0.6-1.3); Estimated Creatinine Clearance 85.7 mL/min (>60); Globulin 3.4 gm/dL (2.3-3.5); Glucose 226 mg/dL (74-106); Osmolality,Calculated 282 (275-295); Potassium 3.6 mMol/L (3.4-5.1); Sodium 136 mMol/L (136-145); Total Protein 5.6 gm/dL (5.7-8.2); eGFR 59 See Note
--- NOTE | 2024-12-29 08:00 | PD.IMPROG ---
Documented by User: Alxe Chapa MD 12/29/24 23:37 Documentation for date of: 12/29/24 Exam Vital Signs Temp Pulse Resp BP Pulse Ox O2 Del Method O2 Flow Rate 98.6 F 116 H 18 106/78 89 L Mechanical Ventilation 30 12/29/24 17:13 12/29/24 18:00 12/29/24 17:13 12/29/24 18:00 12/29/24 17:13 12/29/24 16:00 12/28/24 17:00 FiO2 30 12/29/24 17:13 Objective Labs 12/29/24 13:30 12/29/24 05:00 Labs: Laboratory Results - last 24 hr 12/29/24 12/29/24 12/29/24 04:30 05:00 10:16 WBC 38.3 H* D RBC 3.51 L Hgb 9.1 L Hct 27.7 L MCV 79 L MCH 25.9 MCHC 32.9 RDW Std Deviation 51.9 H Plt Count 13 L* D Neut % (Auto) 79 Lymph % (Auto) 7 L Crosby % (Auto) 4 Eos % (Auto) 0 Baso % (Auto) 0 Neut # (Auto) 30.2 H Lymph # (Auto) 2.9 Crosby # (Auto) 1.4 H Eos # (Auto) 0.0 Baso # (Auto) 0.0 Immature Gran # (Auto) 3.85 H Absolute Nucleated RBC 0.19 H Immature Gran % 10 H Neutrophils % (Manual) Monocytes % (Manual) Promyelocytes % Nucleated RBC % 1 H Band Neutrophils Lymphocytes (Manual) Blast Cells Smear Path Review TNP Puncture Site Arterial Line ABG pH 7.38 ABG pCO2 46 ABG pO2 109 H ABG HCO3 27 H ABG O2 Saturation 99 H ABG Base Excess 1 FiO2 30 Sodium 136 Potassium 3.6 Chloride 99 Carbon Dioxide 27.7 Anion Gap 9 BUN 23 Creatinine 1.1 D Estim Creat Clear Calc 85.7 eGFR 59 L BUN/Creatinine Ratio 21 H Glucose 226 H D Calculated Osmolality 282 Calcium 9.1 Corrected Calcium 10.5 H Total Bilirubin 1.2 AST 45 H ALT 44 Alkaline Phosphatase 297 H Total Protein 5.6 L Albumin 2.2 L Globulin 3.4 Albumin/Globulin Ratio 0.6 L Misc Test Result Platelets confirmed Blood Bank Comment PLATP Ready 12/29/24 13:30 WBC 54.0 H* D RBC 3.74 L Hgb 9.7 L Hct 29.4 L MCV 79 L MCH 25.9 MCHC 33.0 RDW Std Deviation 51.6 H Plt Count 17 L* D Neut % (Auto) 78 Lymph % (Auto) 6 L Crosby % (Auto) 3 Eos % (Auto) 0 Baso % (Auto) 0 Neut # (Auto) 42.3 H Lymph # (Auto) 3.2 Crosby # (Auto) 1.7 H Eos # (Auto) 0.0 Baso # (Auto) 0.0 Immature Gran # (Auto) 6.82 H Absolute Nucleated RBC 0.33 H Immature Gran % 13 H Neutrophils % (Manual) 72 H Monocytes % (Manual) 7 Promyelocytes % 1 H Nucleated RBC % 1 H Band Neutrophils 12 H D Lymphocytes (Manual) 7 L Blast Cells 1.0 Smear Path Review Sent to Pathologist Puncture Site ABG pH ABG pCO2 ABG pO2 ABG HCO3 ABG O2 Saturation ABG Base Excess FiO2 Sodium Potassium Chloride Carbon Dioxide Anion Gap BUN Creatinine Estim Creat Clear Calc eGFR BUN/Creatinine Ratio Glucose Calculated Osmolality Calcium Corrected Calcium Total Bilirubin AST ALT Alkaline Phosphatase Total Protein Albumin Globulin Albumin/Globulin Ratio Misc Test Result Platelets confirmed Blood Bank Comment ABG Interpretation ABG results: 12/22/24 12/22/24 12/23/24 16:49 23:40 13:05 ABG pH 7.39 7.29 L D ABG pCO2 33 37 ABG pO2 60 L 73 L ABG HCO3 20 18 L ABG O2 Saturation 92 94 ABG Base Excess -5 L -8 L VBG pH 7.35 VBG pCO2 37 VBG pO2 27 VBG Base Excess -5 L 12/24/24 12/24/24 12/24/24 08:54 17:12 17:19 ABG pH 7.25 L 7.16 L* ABG pCO2 34 36 ABG pO2 166 H D 127 H D ABG HCO3 15 L 13 L ABG O2 Saturation 100 H 99 H ABG Base Excess -11 L -15 L VBG pH 7.12 L VBG pCO2 42 VBG pO2 44 VBG Base Excess -15 L 12/24/24 12/24/24 12/25/24 19:45 22:40 04:47 ABG pH 7.10 L* 7.21 L D 7.36 D ABG pCO2 50 H D 38 D 37 ABG pO2 249 H D 249 H 191 H D ABG HCO3 15 L 15 L 21 ABG O2 Saturation 100 H 100 H 100 H ABG Base Excess -14 L -12 L -4 L VBG pH VBG pCO2 VBG pO2 VBG Base Excess 12/25/24 12/25/24 12/26/24 15:59 19:55 04:10 ABG pH 7.41 7.41 7.36 ABG pCO2 37 39 37 ABG pO2 128 H D 123 H 99 D ABG HCO3 23 24 21 ABG O2 Saturation 100 H 99 H 98 ABG Base Excess -1 0 -4 L VBG pH VBG pCO2 VBG pO2 VBG Base Excess 12/27/24 12/27/24 12/28/24 04:08 09:45 04:14 ABG pH 7.47 H D 7.42 7.39 ABG pCO2 36 41 45 ABG pO2 82 L 97 114 H ABG HCO3 26 27 H 27 H ABG O2 Saturation 98 99 H 99 H ABG Base Excess 2 2 2 VBG pH VBG pCO2 VBG pO2 VBG Base Excess 12/29/24 04:30 ABG pH 7.38 ABG pCO2 46 ABG pO2 109 H ABG HCO3 27 H ABG O2 Saturation 99 H ABG Base Excess 1 VBG pH VBG pCO2 VBG pO2 VBG Base Excess Assessment & Plan A&P Narrative Patient is a 54-year-old female with past medical history of IDDM2, bilateral lower limb lymphedema, lipedema, asthma, epilepsy, morbid obesity, wheelchair-bound for 9 years, was brought to the ED on 12/22/24 for left lower extremity pain and clear cirrhosis fluid oozing. Patient was admitted to the ICU for distributive shock. Cardiology team was consulted because of new onset A-fib with RVR and newly diagnosed CHF. #Newly diagnosed HFrEF (40-45%, 11/2024) #New onset A-fib with RVR likely induced by shock state #Streptococcus pyogenes bacteremia 05/02 LLE cellulitis Patient presented with sepsis secondary to left leg cellulitis, her condition worsened to distributive shock. During her stay she developed A-fib with RVR, with no known hx of afib, we started the patient on amiodarone drip. Even though her body habitus echo was done and showed ejection fraction of 40 to 45%. With normal RV function. BNP was 204 which most likely skewed by patient obesity. Troponin was negative. 12/22/24 Echo showed Over all poor images due to body habitus and technically difficult study. Normal left ventricular size and function.Stage I diastolic dysfunction. Estimated ejection fraction is 40-45%. Normal right ventricular size and function. RVSP 39 mm Hg with RAP 8. Mild pulmonary HTN Trace MR and Mild TR. TDS due to patient morbid and laying on supine view, couldn't move. (patient had open wounds under breast) 12/25/2024 patient was started on CRRT due to worsening lactic acidosis and kidney function, blood culture growing Streptococcus pyogenes. 12/27/2024, Amidrine drip was stopped by the primary team as the patient converted to sinus rhythm. Patient was having tachycardia heart rate of 113 however it was regular sinus. Plan ? Patient amiodarone drip was stopped by the primary team as the patient converted to sinus rhythm, consider resuming amiodarone drip if patient go back again to A-fib with RVR ? Due to patient condition no invasive cardiac procedure will be done at this time ? Strict in and out ? Keep potassium and magnesium above 4 and 2 respectively within normal range ? Will start the patient on GDMT as soon as her general condition improved #Distributive shock most likely secondary to sepsis #Sepsis secondary to left leg cellulitis #Toxic shock syndrome #Lower extremity lymphedema Plan ? Primary team continuing Clindamycin, meropenem, patient was also given IgG immunoglobulin ? Patient on norepinephrine drip and vasopressin for distributive shock #History of seizure disorder Patient on antiseizure meds #Concern of DIC #History of COPD Supplemental oxygen, BiPAP as needed, DuoNebs #Elevated bilirubin, elevated AST, hypoalbuminemia Secondary to toxic shock syndrome versus septic shock Follow primary team recommendations #Lactic acidosis improving s/p CRRT #YOU #Non-anion gap metabolic acidosis Thank you for your consultation, please do not hesitate to reach out if you have any question or concern Patient plan of care was discussed with the attending physician, Dr. Chapa. Obdulia Evans, PGY-1 I have personally seen and examined the patient separately on the above date of service and discussed the plan of care with the resident. I reviewed the resident Dr. Obdulia Evans consultation progress note and agree with the resident findings and plan in the note above and have also edited the documentation to reflect my findings and plan. Alex Chapa M.D. Interventional Cardiology Time Spent With Patient Time: Total time spent is greater than 50% in coordination of care (as documented) at patient's floor/unit and/or counseling patient: PROCEDURES: Arterial Line Size (Gauge): 20 Documented by User: Obdulia Evans DO 12/29/24 21:35 Subjective Subjective Interval history: Patient was seen and examined at bedside. Patient remain intubated and mechanically ventilated. Heart rate was 119, blood pressure was 143/87 on norepinephrine drip. A few bullae on legs appear to have burst, exposing erythematous base. Cellulitis appears to have receded from marked borders. Decreased WBC (48.2 to 38.3), Hgb (10.3 to 9.1), and platelet count (23 to 13,000). Amiodarone continues to be held by the primary team as the patient converted to sinus rhythm. Exam Vital Signs Temp Pulse Resp BP Pulse Ox O2 Del Method O2 Flow Rate 98.6 F 116 H 18 106/78 89 L Mechanical Ventilation 30 12/29/24 17:13 12/29/24 18:00 12/29/24 17:13 12/29/24 18:00 12/29/24 17:13 12/29/24 16:00 12/28/24 17:00 FiO2 30 12/29/24 17:13 Narrative Exam GENERAL: Patient is intubated and mechanically ventilated. Remains on sedation. HEENT: NC/AT, trachea appears midline, androgenic hair distribution on the chin CARDIOVASCULAR: regular rhythm, tachycardic PULMONARY: symmetric chest rise, on vent, decreased air entry bilaterally due to body habitus ABDOMINAL: soft, non-distended, bowel sounds present EXTREMITIES: Severe left leg swelling with severe hyperkeratotic changes. Multiple oozing wounds with surrounding erythema on bilateral lower extremities, some bullae have ruptured on bilateral extremities. Cellulitis appears to be improving, withdrawing from marked borders. NEURO: limited due to patient mental status and intubation Objective Labs 12/29/24 13:30 12/29/24 05:00 Labs: Laboratory Results - last 24 hr 12/29/24 12/29/24 12/29/24 04:30 05:00 10:16 WBC 38.3 H* D RBC 3.51 L Hgb 9.1 L Hct 27.7 L MCV 79 L MCH 25.9 MCHC 32.9 RDW Std Deviation 51.9 H Plt Count 13 L* D Neut % (Auto) 79 Lymph % (Auto) 7 L Crosby % (Auto) 4 Eos % (Auto) 0 Baso % (Auto) 0 Neut # (Auto) 30.2 H Lymph # (Auto) 2.9 Crosby # (Auto) 1.4 H Eos # (Auto) 0.0 Baso # (Auto) 0.0 Immature Gran # (Auto) 3.85 H Absolute Nucleated RBC 0.19 H Immature Gran % 10 H Neutrophils % (Manual) Monocytes % (Manual) Promyelocytes % Nucleated RBC % 1 H Band Neutrophils Lymphocytes (Manual) Blast Cells Smear Path Review TNP Puncture Site Arterial Line ABG pH 7.38 ABG pCO2 46 ABG pO2 109 H ABG HCO3 27 H ABG O2 Saturation 99 H ABG Base Excess 1 FiO2 30 Sodium 136 Potassium 3.6 Chloride 99 Carbon Dioxide 27.7 Anion Gap 9 BUN 23 Creatinine 1.1 D Estim Creat Clear Calc 85.7 eGFR 59 L BUN/Creatinine Ratio 21 H Glucose 226 H D Calculated Osmolality 282 Calcium 9.1 Corrected Calcium 10.5 H Total Bilirubin 1.2 AST 45 H ALT 44 Alkaline Phosphatase 297 H Total Protein 5.6 L Albumin 2.2 L Globulin 3.4 Albumin/Globulin Ratio 0.6 L Misc Test Result Platelets confirmed Blood Bank Comment PLATP Ready 12/29/24 13:30 WBC 54.0 H* D RBC 3.74 L Hgb 9.7 L Hct 29.4 L MCV 79 L MCH 25.9 MCHC 33.0 RDW Std Deviation 51.6 H Plt Count 17 L* D Neut % (Auto) 78 Lymph % (Auto) 6 L Crosby % (Auto) 3 Eos % (Auto) 0 Baso % (Auto) 0 Neut # (Auto) 42.3 H Lymph # (Auto) 3.2 Crosby # (Auto) 1.7 H Eos # (Auto) 0.0 Baso # (Auto) 0.0 Immature Gran # (Auto) 6.82 H Absolute Nucleated RBC 0.33 H Immature Gran % 13 H Neutrophils % (Manual) 72 H Monocytes % (Manual) 7 Promyelocytes % 1 H Nucleated RBC % 1 H Band Neutrophils 12 H D Lymphocytes (Manual) 7 L Blast Cells 1.0 Smear Path Review Sent to Pathologist Puncture Site ABG pH ABG pCO2 ABG pO2 ABG HCO3 ABG O2 Saturation ABG Base Excess FiO2 Sodium Potassium Chloride Carbon Dioxide Anion Gap BUN Creatinine Estim Creat Clear Calc eGFR BUN/Creatinine Ratio Glucose Calculated Osmolality Calcium Corrected Calcium Total Bilirubin AST ALT Alkaline Phosphatase Total Protein Albumin Globulin Albumin/Globulin Ratio Misc Test Result Platelets confirmed Blood Bank Comment ABG Interpretation ABG results: 12/22/24 12/22/24 12/23/24 16:49 23:40 13:05 ABG pH 7.39 7.29 L D ABG pCO2 33 37 ABG pO2 60 L 73 L ABG HCO3 20 18 L ABG O2 Saturation 92 94 ABG Base Excess -5 L -8 L VBG pH 7.35 VBG pCO2 37 VBG pO2 27 VBG Base Excess -5 L 12/24/24 12/24/24 12/24/24 08:54 17:12 17:19 ABG pH 7.25 L 7.16 L* ABG pCO2 34 36 ABG pO2 166 H D 127 H D ABG HCO3 15 L 13 L ABG O2 Saturation 100 H 99 H ABG Base Excess -11 L -15 L VBG pH 7.12 L VBG pCO2 42 VBG pO2 44 VBG Base Excess -15 L 12/24/24 12/24/24 12/25/24 19:45 22:40 04:47 ABG pH 7.10 L* 7.21 L D 7.36 D ABG pCO2 50 H D 38 D 37 ABG pO2 249 H D 249 H 191 H D ABG HCO3 15 L 15 L 21 ABG O2 Saturation 100 H 100 H 100 H ABG Base Excess -14 L -12 L -4 L VBG pH VBG pCO2 VBG pO2 VBG Base Excess 12/25/24 12/25/24 12/26/24 15:59 19:55 04:10 ABG pH 7.41 7.41 7.36 ABG pCO2 37 39 37 ABG pO2 128 H D 123 H 99 D ABG HCO3 23 24 21 ABG O2 Saturation 100 H 99 H 98 ABG Base Excess -1 0 -4 L VBG pH VBG pCO2 VBG pO2 VBG Base Excess 12/27/24 12/27/24 12/28/24 04:08 09:45 04:14 ABG pH 7.47 H D 7.42 7.39 ABG pCO2 36 41 45 ABG pO2 82 L 97 114 H ABG HCO3 26 27 H 27 H ABG O2 Saturation 98 99 H 99 H ABG Base Excess 2 2 2 VBG pH VBG pCO2 VBG pO2 VBG Base Excess 12/29/24 04:30 ABG pH 7.38 ABG pCO2 46 ABG pO2 109 H ABG HCO3 27 H ABG O2 Saturation 99 H ABG Base Excess 1 VBG pH VBG pCO2 VBG pO2 VBG Base Excess Assessment & Plan A&P Narrative Patient is a 54-year-old female with past medical history of IDDM2, bilateral lower limb lymphedema, lipedema, asthma, epilepsy, morbid obesity, wheelchair-bound for 9 years, was brought to the ED on 12/22/24 for left lower extremity pain and clear cirrhosis fluid oozing. Patient was admitted to the ICU for distributive shock. Cardiology team was consulted because of new onset A-fib with RVR and newly diagnosed CHF. #Newly diagnosed HFrEF (40-45%, 11/2024) #New onset A-fib with RVR likely induced by shock state #Streptococcus pyogenes bacteremia / LLE cellulitis Patient presented with sepsis secondary to left leg cellulitis, her condition worsened to distributive shock. During her stay she developed A-fib with RVR, with no known hx of afib, we started the patient on amiodarone drip. Even though her body habitus echo was done and showed ejection fraction of 40 to 45%. With normal RV function. BNP was 204 which most likely skewed by patient obesity. Troponin was negative. 12/22/24 Echo showed Over all poor images due to body habitus and technically difficult study. Normal left ventricular size and function.Stage I diastolic dysfunction. Estimated ejection fraction is 40-45%. Normal right ventricular size and function. RVSP 39 mm Hg with RAP 8. Mild pulmonary HTN Trace MR and Mild TR. TDS due to patient morbid and laying on supine view, couldn't move. (patient had open wounds under breast) 12/25/2024 patient was started on CRRT due to worsening lactic acidosis and kidney function, blood culture growing Streptococcus pyogenes. 12/27/2024, Amidrine drip was stopped by the primary team as the patient converted to sinus rhythm. Patient was having tachycardia heart rate of 113 however it was regular sinus. Plan ? Patient amiodarone drip was stopped by the primary team as the patient converted to sinus rhythm, consider resuming amiodarone drip if patient go back again to A-fib with RVR ? Due to patient condition no invasive cardiac procedure will be done at this time ? Strict in and out ? Keep potassium and magnesium above 4 and 2 respectively within normal range ? Will start the patient on GDMT as soon as her general condition improved #Distributive shock most likely secondary to sepsis #Sepsis secondary to left leg cellulitis #Toxic shock syndrome #Lower extremity lymphedema Plan ? Primary team continuing Clindamycin, meropenem, patient was also given IgG immunoglobulin ? Patient on norepinephrine drip and vasopressin for distributive shock #History of seizure disorder Patient on antiseizure meds #Concern of DIC #History of COPD Supplemental oxygen, BiPAP as needed, DuoNebs #Elevated bilirubin, elevated AST, hypoalbuminemia Secondary to toxic shock syndrome versus septic shock Follow primary team recommendations #Lactic acidosis improving s/p CRRT #YOU #Non-anion gap metabolic acidosis Thank you for your consultation, please do not hesitate to reach out if you have any question or concern Patient plan of care was discussed with the attending physician, Dr. Chaap. Obdulia Evans, PGY-1
[2024-12-29] MEDS: CLOTRIMAZOLE CR 1% 30 GM TUBE TOP ×2 (08:41→20:07)
[2024-12-29] MEDS: POTASSIUM PHOS 22.5 MMOL in SODIUM CHLORIDE 0.9% 500 ML 500 ML 82.778 MMOL IV (08:44)
[2024-12-29] MEDS: DOCUSATE SOD LIQD 100 MG/10 ML UDC PO ×2 (08:45→20:06)
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
--- NOTE | 2024-12-29 11:28 | ESPR_ITS ---
<Statement entered by Jamar Schneider MD - 12/29/24 19:37> Patient seen and examined at bedside. I discussed and supervised with the research intern physician who took care of this patient. I personally saw and examined the patient. I agree with most of the assessment and plan. I attempted to discontinue sedation, however patient became restless, appeared to be in distress. Patient was able to withdraw from pain intermittently, did not open eyes in response to pain, GCS estimated 6T. Propofol and fentanyl were resumed. Continues to have no urine production. Per nephrology patient received standard hemodialysis in place of CRRT, patient did have intermittently decreased blood pressure but overall tolerated well. Erythema of BLE has not spread further, however patient has notable bullae that have ruptured, splitting skin. Patient also has discoloration indicating ischemia of distal right and left fingers, worse on right, as well as right toes. Plan to continue antibiotics for 10-day course, dialysis as per nephrology. Will continue to titrate pressors and sedation as tolerated with goal of weaning off. Plan of care discussed with attending Dr. Donovan. Jamar Schneider MD PGY-2 Documentation for date of: 12/29/24 Subjective Subjective Interval history: 54-year-old female with past medical history of prior [place] (questionable), insulin-dependent type 2 diabetes, lymphedema, lipedema, asthma, epilepsy, morbid obesity, nonambulatory for 9 years, wheelchair-bound presenting to the ED on 12/22 with left lower extremity pain and oozing. Patient states that about 3 weeks ago she slammed her left leg on a brick wall and ever since that time her left leg has progressively worsened and started oozing. Patient lives at home and is largely immobile and requires title clerk automobile in the form of her grandson who takes care of her. Patient has not been seen by outpatient wound care as she says her motorized wheelchair has been broken. Patient also states that she has had a heart attack in the past but has never followed up with cardiology. Patient also has asthma but she denies having any shortness of breath at this time, uses albuterol twice a week. Medical history: As stated above Surgical history: Denies Allergies: Aspirin, codeine, Keppra, morphine, penicillin causes dyspnea Medications: Pending med rec Family history: Patient's mother and grandmother from breast cancer, denies having any family history of heart attack or stroke Social history: Patient lives at home, grandson title clerk automobile, denies any alcohol, tobacco or illicit drug use ROS: All 12 systems assessed and the patient denies unless otherwise stated in HPI In the ED, patient presented mildly hypotensive 92/56, heart rate of 92, respiratory rate of 18, afebrile satting 96 on room air. Pertinent lab findings include WBC of 5.8, potassium 3.1, creatinine 1.8, eGFR of 33, lactic acid initially 7.1 uptrending to 8.0, T. bili of 2.2, AST 21, ALT 14, BNP of 385, Pro-Umberto of 87. Urinalysis shows signs of urinary tract infection. Venous Doppler study is negative for DVT, chest x-ray does not show any active disease and tibia/fibula x-ray shows no acute fracture. Patient was admitted to floors for sepsis secondary to cellulitis. On 12/23, CONSERVATION BIOLOGY PROFESSOR was called due to hypotension, despite aggressive fluid resuscitation patient was remained persistent hypotensive, however nursing staff was having a hard time to obtain accurate measurement due to body habitus. Repeat labs did revealed lactic acidosis which did not improved even after 5 L of fluids, Cheetah monitor was placed, patient found to be not fluid responsive. At this point decision was made to upgrade patient to ICU for pressor support. *Refer to previous note for Interval History from 12/23-12/28* 12/29/2024: Patient seen and examined at bedside. Patient is occasionally moving/wincing from pain, no eye or voice response to pain, GCS of 6t. Patient was on and off levophed this morning, currently off of levophed now. Patient vitals this morning were BP 146/86, HR 120, Saturating well on AC/MV FIO2 of 30, PEEP of 12. Patient urine output of 34 ml for last 24 hours. Net I/O for hospitalization is +18 liters. 2 BM last 24 hours. Patient's WBC downtrended early childhood education coordinator to 38 and uptrended in early PM to 54 (done to check on PLT count, but platelets not given yet because of low supply, PLT count currently 17). ABG pH 7.38 this morning. Exam Vital Signs Temp Pulse Resp BP Pulse Ox O2 Del Method O2 Flow Rate 97.9 F 131 H 18 127/92 H 92 L Mechanical Ventilation 30 12/29/24 08:00 12/29/24 10:45 12/29/24 07:00 12/29/24 10:45 12/29/24 10:43 12/27/24 18:00 12/28/24 17:00 FiO2 30 12/29/24 10:43 Narrative Exam General: Morbidly obese, Intubated, Sedated, GCS 6t (occasional withdrawal from pain, no eye/speech response) Skin: Reffer to extremities; Mild pressure injuries on back, upper buttock HENT: NCAT, EOMI, not icteric. External ears normal. No rhinorrhea. Moist mucous membranes Cardiovascular: Regular rate and rhythm, no murmur, +S1/S2 (difficult to assess with body habitus) Respiratory: Lungs CTAB (difficult to assess with body habitus) GI: Soft, nontender, non-distended. No guarding or rebound tenderness Extremities: BL LE skin Lower extremity erythema extending up the lateral left thigh and reaches up towards the left side of patient's hip and torso as well as development of new bullae bilaterally; cyanotic/ischemic appearance of bilateral toes (worse on the left foot). Necrotic lesions of the toes on left foot.r. Multiple areas of induration and denuded skin of bilateral lower extremities anteriorly. Mottling noted of right lower extremity. Posterior left thigh continues to worsen in appearance and appears purple and engorged. New discolored lesion near right buttock. Bilateral dorsalis pedis pulses were able to be appreciated by handheld Doppler. Dusky discoloration of right fingers have spread to DIP while new dusky discoloration noted of left pointer finger and middle finger. Hands feel cold and puffy. Hyperkeratinization and lichenification of both feet. Neuro: GCS 6t (occasional withdrawal from pain, no eye/speech response), Intubated, Sedated Psychiatric: Not examined (Intubated, Sedated) Objective Labs 12/29/24 13:30 12/29/24 05:00 Labs: Laboratory Results - last 24 hr 12/28/24 12/28/24 12/29/24 04:18 16:00 04:30 WBC RBC Hgb Hct MCV MCH MCHC RDW Std Deviation Plt Count Neut % (Auto) Lymph % (Auto) Latimer % (Auto) Eos % (Auto) Baso % (Auto) Neut # (Auto) Lymph # (Auto) Latimer # (Auto) Eos # (Auto) Baso # (Auto) Immature Gran # (Auto) Absolute Nucleated RBC Immature Gran % Nucleated RBC % Smear Path Review Sent to Pathologist Puncture Site Arterial Line ABG pH 7.38 ABG pCO2 46 ABG pO2 109 H ABG HCO3 27 H ABG O2 Saturation 99 H ABG Base Excess 1 FiO2 30 Sodium 135 L Potassium 3.9 Chloride 99 Carbon Dioxide 27.9 Anion Gap 8 BUN 10 Creatinine 0.6 Estim Creat Clear Calc 158.8 eGFR > 60 BUN/Creatinine Ratio 17 Glucose 160 H Calculated Osmolality 272 L Calcium 9.2 Corrected Calcium 10.6 H Phosphorus 2.3 L Total Bilirubin AST ALT Alkaline Phosphatase Total Protein Albumin 2.2 L Globulin Albumin/Globulin Ratio Misc Test Result Platelets confirmed 12/29/24 05:00 WBC 38.3 H* D RBC 3.51 L Hgb 9.1 L Hct 27.7 L MCV 79 L MCH 25.9 MCHC 32.9 RDW Std Deviation 51.9 H Plt Count 13 L* D Neut % (Auto) 79 Lymph % (Auto) 7 L Latimer % (Auto) 4 Eos % (Auto) 0 Baso % (Auto) 0 Neut # (Auto) 30.2 H Lymph # (Auto) 2.9 Latimer # (Auto) 1.4 H Eos # (Auto) 0.0 Baso # (Auto) 0.0 Immature Gran # (Auto) 3.85 H Absolute Nucleated RBC 0.19 H Immature Gran % 10 H Nucleated RBC % 1 H Smear Path Review TNP Puncture Site ABG pH ABG pCO2 ABG pO2 ABG HCO3 ABG O2 Saturation ABG Base Excess FiO2 Sodium 136 Potassium 3.6 Chloride 99 Carbon Dioxide 27.7 Anion Gap 9 BUN 23 Creatinine 1.1 D Estim Creat Clear Calc 85.7 eGFR 59 L BUN/Creatinine Ratio 21 H Glucose 226 H D Calculated Osmolality 282 Calcium 9.1 Corrected Calcium 10.5 H Phosphorus Total Bilirubin 1.2 AST 45 H ALT 44 Alkaline Phosphatase 297 H Total Protein 5.6 L Albumin 2.2 L Globulin 3.4 Albumin/Globulin Ratio 0.6 L Misc Test Result Platelets confirmed ABG Interpretation ABG results: 12/22/24 12/22/24 12/23/24 16:49 23:40 13:05 ABG pH 7.39 7.29 L D ABG pCO2 33 37 ABG pO2 60 L 73 L ABG HCO3 20 18 L ABG O2 Saturation 92 94 ABG Base Excess -5 L -8 L VBG pH 7.35 VBG pCO2 37 VBG pO2 27 VBG Base Excess -5 L 12/24/24 12/24/24 12/24/24 08:54 17:12 17:19 ABG pH 7.25 L 7.16 L* ABG pCO2 34 36 ABG pO2 166 H D 127 H D ABG HCO3 15 L 13 L ABG O2 Saturation 100 H 99 H ABG Base Excess -11 L -15 L VBG pH 7.12 L VBG pCO2 42 VBG pO2 44 VBG Base Excess -15 L 12/24/24 12/24/24 12/25/24 19:45 22:40 04:47 ABG pH 7.10 L* 7.21 L D 7.36 D ABG pCO2 50 H D 38 D 37 ABG pO2 249 H D 249 H 191 H D ABG HCO3 15 L 15 L 21 ABG O2 Saturation 100 H 100 H 100 H ABG Base Excess -14 L -12 L -4 L VBG pH VBG pCO2 VBG pO2 VBG Base Excess 12/25/24 12/25/24 12/26/24 15:59 19:55 04:10 ABG pH 7.41 7.41 7.36 ABG pCO2 37 39 37 ABG pO2 128 H D 123 H 99 D ABG HCO3 23 24 21 ABG O2 Saturation 100 H 99 H 98 ABG Base Excess -1 0 -4 L VBG pH VBG pCO2 VBG pO2 VBG Base Excess 12/27/24 12/27/24 12/28/24 04:08 09:45 04:14 ABG pH 7.47 H D 7.42 7.39 ABG pCO2 36 41 45 ABG pO2 82 L 97 114 H ABG HCO3 26 27 H 27 H ABG O2 Saturation 98 99 H 99 H ABG Base Excess 2 2 2 VBG pH VBG pCO2 VBG pO2 VBG Base Excess 12/29/24 04:30 ABG pH 7.38 ABG pCO2 46 ABG pO2 109 H ABG HCO3 27 H ABG O2 Saturation 99 H ABG Base Excess 1 VBG pH VBG pCO2 VBG pO2 VBG Base Excess Quality Measures Quality Measures VTE prophylaxis Assessment & Plan Assessment Current Active Medications: Generic Name Dose Route Start Last Admin Trade Name Benq PRN Reason Stop Dose Admin Acetaminophen 650 mg 12/22/24 17:09 12/23/24 10:19 Acetaminophen 325 Mg Tablet PO 01/21/25 17:08 650 mg Q6H PRN Administration Pain 1-3 and/or Fever >100.1 Albuterol/Ipratropium 3 ml 12/23/24 09:36 Albuterol/Ipratropium (Duoneb) Rt Ginny 3 Ml Nebu INH 01/22/25 07:44 Q8HRRT PRN wheezing Clotrimazole 0 gm 12/23/24 09:00 12/29/24 08:41 Clotrimazole Cr 1% 30 Gm Tube TOP 01/22/25 08:59 1 applicatio BID TRACY Administration Dextrose 25 ml 12/22/24 17:09 12/25/24 23:07 Dextrose 50%-Water Inj 50 Ml Syringe IV 01/21/25 17:08 25 ml Q15MIN PRN Administration BG 50-70 responsive npo pt Dextrose 50 ml 12/22/24 17:09 12/25/24 14:03 Dextrose 50%-Water Inj 50 Ml Syringe IV 01/21/25 17:08 50 ml Q15MIN PRN Administration BG <50 OR BG <70 & pt unresponsive Docusate Sodium 100 mg 12/28/24 09:15 12/29/24 08:45 Docusate Sod Liqd 100 Mg/10 Ml Udc PO 01/27/25 09:14 100 mg BID TRACY Administration Protocol Glucagon 1 mg 12/22/24 17:09 Glucagon Inj 1 Mg Vial IM Q15MIN PRN BG <70, and no IV access Heparin Sodium (Porcine) 7,500 unit 12/23/24 14:00 12/29/24 05:12 Heparin Sod Inj 5000 Unit/Ml Vial SC 01/06/25 13:59 7,500 unit On Hold: 12/29/24 10:17 Q8HR TRACY Administration Heparin Sodium (Porcine) 3,000 unit 12/27/24 12:35 Heparin Sod Inj 1000 Unit/Ml Vial 10 Ml INDWELLCAT 01/10/25 12:34 PRN PRN DIALYSIS Hydrocortisone Sodium Succinate 50 mg 12/24/24 18:00 12/29/24 05:12 Hydrocortisone Sod Succ Inj 100 Mg 2 Ml Vial IV 01/23/25 17:59 50 mg Q6HR TRACY Administration Norepinephrine Bitartrate 16 mg in 250 mls @ 7.369 mls/hr 12/23/24 07:12 12/29/24 08:45 Levophed In Ns 16mg/250ml IV 01/22/25 07:11 0 mcg/kg/min .Q24H PRN 0 mls/hr PER protocol Titration Protocol 0.05 MCG/KG/MIN Clindamycin/Sodium Chloride 600 mg in 50 mls @ 100 mls/hr 12/23/24 09:35 12/29/24 05:12 Cleocin/Ns Ivpb IV 01/01/25 09:34 100 mls/hr Q8HR TRACY Administration Propofol 1,000 mg in 100 mls @ 4.722 mls/hr 12/24/24 16:53 12/29/24 11:00 Diprivan Ivpb IV 01/23/25 16:52 10 mcg/kg/min .[id number] PRN 9.444 mls/hr Per Protocol Titration Protocol 5 MCG/KG/MIN Fentanyl Citrate 2,500 mcg in 250 mls @ 2.5 mls/hr 12/24/24 16:55 12/29/24 11:15 Sublimaze Inj 2,500 Mcg/250 Ml Bag IV 12/29/24 16:54 200 mcg/hr .Q24H PRN 20 mls/hr PER PROTOCOL Titration Protocol 25 MCG/HR Vasopressin/Sodium Chloride 20 unit in 100 mls @ 9 mls/hr 12/24/24 17:09 Vasostrict/Ns Ivpb IV 01/23/25 17:08 .Q11H7M PRN PER PROTOCOL Protocol 0.03 UNIT/MIN Potassium Phosphate 22.5 mmol/ 507.5 mls @ 82.778 mls/hr 12/29/24 08:15 12/29/24 08:44 Sodium Chloride IV 12/29/24 14:22 82.778 mls/hr X1 ONE Administration Albumin Human 25 gm in 100 mls @ 100 mls/hr 12/29/24 08:25 Albuminar-25 Ivpb IV PRN PRN DIALYSIS Meropenem 1,000 mg/ Sodium 50 mls @ 100 mls/hr 12/29/24 14:00 Chloride IV 01/03/25 13:59 Q8HR [facility] Ondansetron HCl 4 mg 12/22/24 17:09 Ondansetron Inj 2 Mg/Ml Inj 2 Ml IVP 01/21/25 17:08 Q6H PRN NAUSEA OR VOMITING Protocol Pantoprazole Sodium 40 mg 12/25/24 11:15 12/29/24 08:41 Pantoprazole Inj 40 Mg Vial IVP 01/24/25 11:14 40 mg QDAY TRACY Administration Pharmacy Consult 1 each 12/23/24 11:15 Pharmacy Renal Dose Adjustment 1 Ea XX 01/22/25 11:14 PRN PRN CONSULT Sennosides 1 tab 12/22/24 17:09 Senna Tablet PO 01/21/25 17:08 QDAY PRN constipation Protocol Plan 54-year-old female with past medical history of prior [place], insulin-dependent type 2 diabetes, lymphedema, lipedema, asthma, epilepsy, morbid obesity, nonambulatory status for 9 years, and wheelchair-bound status presenting to the ED on 12/22 with left lower extremity pain and oozing. CONSERVATION BIOLOGY PROFESSOR was called due to hypotension and, despite aggressive fluid resuscitation, patient remained persistently hypotensive. However, nursing staff was having a hard time to obtain accurate measurement due to body habitus. Repeat labs did revealed lactic acidosis which did not improved even after 5 L of fluids, Cheetah monitor was placed, patient found to be not fluid responsive. At this point decision was made to upgrade patient to ICU for pressor support. Overnight, patient's total UOP was 30 cc (average rate of 2.5 cc/hr), suggesting that renal function continues to be impaired. Patient was examined at bedside; her cellulitis continues to remain contained similar to yesterday without any new spread beyond demarcation borders. Additionally, her lactic acid (while on CRRT) has continued to downtrend and was last seen at 2.5. Pertinent labs today include WBC 33.1 -> 48.2, platelet count 26 -> 23, corrected calcium 10.2 -> 10.5, phosphorus 2.5 -> 2.1, and magnesium 1.7 -> 1.6. ABG from this morning was favorable and patient's transaminitis is downtrending. Patient's daughter Sonollie called regarding patient's status and it was once again emphasized to her the patient's poor prognosis and high potential for sudden deterioration and ; Brianna voiced understanding of this and all questions were answered. In terms of management changes today, another blood culture was ordered to assess for any new infectious etiologies due to patient's continually up trending WBC, and patient was started on a bowel regimen of PO Colace 100 mg BID and given PO lactulose 40 gm x 1 (which allowed her to have a large BM today for the first time in 3 days). 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 However, she developed hypotension refractory to aggressive fluid resuscitation with accompanying lactic acidosis and was admitted to the ICU for pressor support. She was started on Levophed through a peripheral IV but this led to extravasation and phentolamine had to be infused around the site. Patient's ongoing hypotension is now understood to be due to toxic shock syndrome (had been suspected early due to patient's concomitant drop in platelets and other labs suggesting some level of DIC) from the spread of S treptococcus pyogenes from her cellulitis to the bloodstream (confirmed by blood culture) Cardiogenic etiology less likely due to bedside echocardiogram showing seemingly adequate contractility without large pericardial effusion. Obstructive etiology less likely due to absence of pneumothorax or PE. Hypovolemic etiology less likely due to lack of BP improvement with aggressive fluid resuscitation in the setting of no active bleeding Importantly, clindamycin is unique as an antibiotic for treatment of TSS in that it binds to the 50S ribosomal subunit of bacteria and directly suppresses synthesis of exotoxins like Toxic Shock Syndrome Toxin-1 (TSST-1) and enterotoxins produced by Streptococcus pyogenes Dx: -12/22 BCx (04/01) grew zaman-sensitive Streptococcus pyogenes (Group A Streptococcus) -12/22 echocardiogram showed reduced EF of 45% -Patient has been off of pressor support since this morning, continue to monitor BP. Rx: -s/p completion of IVIG administration x 3 [12/23-12/25] -Monitor hemodynamics and titrate pressor support as appropriate to maintain MAP > 65 using BP measured by arterial line -Stress dose IV hydrocortisone 50 mg q6HR for refractory distributive shock [12/24--] -Antibiotic regimen as detailed in ID section #Atrial fibrillation w/ RVR on amiodarone infusion Patient has been having atrial fibrillation w/ RVR throughout her stint in the ICU but has converted to sinus rhythm s/p amiodarone drip and is not currently experiencing ongoing atrial fibrilation #Acute systolic and diastolic dysfunction w/ mildly reduced EF [40-45%] DDx: septic cardiomyopathy, ischemic cardiomyopathy Dx: -12/22 echocardiogram showed reduced EF of 45% Rx: -Further evaluation in the outpatient setting Respiratory #Acute respiratory failure with hypoxia requiring intubation and mechanical ventilation 2/2 severe metabolic acidosis Dx: -ABG today was favorable Rx: -Continue intubation and mechanical ventilation (not fit for SBT) -Continue IV Protonix 40 mg qD for GI prophylaxis due to patient's intubated status RRx: -Follow up on repeat ABG and adjust ventilator settings accordingly Renal #Acute renal failure likely 2/2 shock and ATN on CRRT Creatinine initially elevated upon admission at 1.8 and had slowly up-trended Baseline creatinine used to be WNL but last lab was from a few years ago However, patient was noted to have almost no UOP for days despite adequate fluid resuscitation, suggesting YOU 2/2 ATN 2/2 renal hypoperfusion Dx: -Patient's UOP last 24 hrs was 34 cc suggesting that renal function continues to be impaired Rx: -CRRT as needed per Nephrology recommendations, receiving dialysis today. -Strict I's & O's -Avoid nephrotoxins #Lactic acidosis 2/2 toxic shock syndrome (resolving) #Anion gap metabolic acidosis (resolving) Patient presented with significant lactic acidosis likely 2/2 toxic shock syndrome and YOU that peaked at 10.0 despite receiving broad-coverage antibiotics, which raised concerns for ongoing necrosis or compartment syndrome occurring occultly in patient's extremely lymphedematous legs (resulting in efforts to transfer her for radical surgical intervention at a facility that could offer more specialized care) However, it has now been downtrending and was most recently seen at 2.5 (in the setting of ongoing CRRT), signaling that any dangerous cause of ongoing lactic acidosis (compartment syndrome, necrosis) seems to have slowed or stopped Dx: -LA 2.5 (ongoing CRRT) -12/26 Bilateral lower extremity venous Doppler ultrasound ruled out cerulea dolens 2/2 extensive DVT -12/26 Bedside arterial duplex of dorsalis pedis confirmed blood flow to both feet Rx: -General Surgery (Dr. Hines) consulted regarding possible surgical decompression/debridement options as well as opinions on the viability of transferring patient to another facility for [id number] -Transfer nurse contacted to initiate proceedings necessary to possible transfer (however, due to halt of cellulitic spread and resolving lactic acidosis, pursuit of transfer has been deferred for now) -Treat underlying cause (toxic shock syndrome) #Electrolyte derangements #Hypercalcemia #Hypophosphatemia Today, corrected calcium 10.5 -> 10.5, phosphorus 2.5 -> 2.1 (as of 12/28) Rx: -Monitor CMP, correct electrolytes as appropriate -Ordered Phos w/ AM labs GI #Transaminitis In the setting of ongoing toxic shock syndrome, downtrending #Constipation Patient has not had a BM for about 3 days now Rx: -PO Colace 100 mg BID scheduled -PO lactulose 40 gm x 1 RRx: -After starting bowel regimen today, patient had a large BM Endocrine #T2DM Reported in previous charts No hemoglobin A1c recorded in [facility] medical records actually meeting criteria for T2DM Rx: -Tube feeds @ 20 mL / hr and 30 mL/hr flushes -SF Prostat 30 mL BID -Blood sugar check q4HR Heme #Thrombocytopenia Likely 2/2 a combination of causes including sepsis, DIC, purpura fulminans Dx: -PLT 13, repeat in PM is 17 (PLT ordered, not given yet due to low supply) Rx: -Continue to monitor CBC and for signs of active bleeding -Transfuse platelets if platelets less than 50 with active bleeding or less than 15 RRx: -Thrombocytopenia appears stable for now #Coagulopathy 2/2 toxic shock syndrome - possible DIC Patient had elevated INR, elevated D-Dimer, and elevated fibrinogen early in her ICU admission which suggested the presence of low-level DIC Dx: -Elevated INR, elevated D-Dimer, and elevated fibrinogen suggestive of low level DIC Rx: -Consider trending coagulation panels RRx: -PT, APTT, fibrinogen, and D-dimer remain elevated at this time but 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) pending #Leukocytosis #??Leukemoid reaction In the setting of ongoing toxic shock syndrome, infection, and steroid medications However, has continued to uptrend while on antibiotics for treatment of toxic shock syndrome Currently suspect this is a benign leukemoid reaction in the setting of acute illness DDx: occult infection due to bacterial (Clostridioides difficile from clindamycin use) or commensal fungal overgrowth Dx: -WBC downtrended 12/29 early childhood education coordinator to 38 and uptrended in early PM to 54 -Patient remains afebrile Rx: -Follow up blood cultures due to concerns for possible new bacteremia or fungemia ID #Cellulitis #Streptococcus pyogenes bacteremia #Chronic bilateral lower extremity lymphedema Likely source of sepsis and precipitating toxic shock syndrome As mentioned earlier in the Cardiovascular section, clindamycin is unique as an antibiotic for treatment of TSS in that it binds to the 50S ribosomal subunit of bacteria and directly suppresses synthesis of exotoxins like Toxic Shock Syndrome Toxin-1 (TSST-1) and enterotoxins produced by Streptococcus pyogenes Timeline of antibiotic regimen detailed below: 1. IV vancomycin dosed by pharmacy [12/22-12/25, discontinued due to MRSA(-)] 2. IV clindamycin 600 mg q8HR [12/22-01/01] 3. IV cefepime 2 gm q12HR [12/22-12/24, discontinued after TSS became favored diagnosis] 4. IV meropenem 1000 mg q8HR [12/24-01/01] Dx: -12/22 BCx (04/01) grew zaman-sensitive Streptococcus pyogenes (Group A Streptococcus) Rx: -Current active antibiotic regimen: IV meropenem 1000 mg q8HR [12/24-01/04] and IV clindamycin 600 mg q8HR [12/22-01/04] to complete a [id number] of antibiotics for treatment of toxic shock syndrome RRx: -Patient is on broad-spectrum coverage but WBC continues to uptrend (possibly leukemoid reaction) Disposition: Patient continues to meet criteria for ongoing ICU management due to continued need for pressors/intubation. DVT prophylaxis: Heparin 7500 q8HR GI prophylaxis: IV Protonix 40 mg qD Diet: Tube Feeds @ 20 mL / hr with 30 cc/hr water flushes [place]: Present Lines: Peripheral IV, Central IV, arterial line Antibiotics: IV meropenem 1000 mg q8HR [12/24-01/04] and IV clindamycin 600 mg q8HR [12/22-01/04] CODE STATUS: FULL (consider recommending DNR/DNI to Decision Maker) Patient plan of care was discussed with the attending physician, Dr. Donovan & senior resident Dr. Manju CALLEJAS PGY-1
--- NOTE | 2024-12-29 11:36 | PC.SS ---
Update: Patient is currently intubated. Patient is off sedation. Patient receiving pressor support. Patient is currently receiving Dialysis at bedside. On IV ABX. On tube feedings, OG tube. Pitts catheter in place.
--- NOTE | 2024-12-29 13:23 | ESPR_ITS ---
Documentation for date of: 12/29/24 Subjective Subjective Interval history: This is a 54yo F admitted to the hospital yesterday for general malaise and LLE pain. Apparently 3 weeks ago the patient was in her motorized wheelchair when she had a accident. She had a brick wall and injured her left lower extremity. The patient does suffer from morbid obesity as well as significant bilateral lower extremity lymphedema. She developed a shallow ulceration measuring perhaps 7 to 8 cm on the lateral aspect of her distal left lower extremity. She has been trying to clean and care for the wound however finds it difficult due to her body habitus. She states that her dog has also been licking the wound. Yesterday she began with significant severe pain in her left leg and decided to come to the hospital. At time of arrival to the ER she was noted to be hypotensive and given IV fluids. She was admitted to the floor with a diagnosis of cellulitis and started on antibiotics. Overnight the patient was hypotensive once more requiring additional volume. She became nonresponsive to fluids and given that her blood pressure was still low decision was made to upgrade the patient to the ICU. She received a total of 5 L of IV fluids. She was started on Levophed through a peripheral IV. The IV located in her right forearm infiltrated with the Levophed. There is an area of nonblanching pale skin and a circumferential area around where the IV was. This morning she complains of some general malaise with generalized aches and pains however mostly localizes her discomfort to her left lower extremity. Complains of mild shortness of breath but no cough. She has had minimal urinary output since arrival. She is currently afebrile. 12/24- overnight pt had improvement in her UOP with 30-50cc/hr, afebrile, appears ill, altered this morning, tachypneic, overnight developed afib and started on amio, remains not fluid responsive this AM 12/25-yesterday evening patient continued decline eventually required intubation. She had a significant metabolic as well as respiratory acidosis. Several vent adjustments were made. She had a dialysis catheter placed on the left and was started on CRRT. She also underwent a repeat CT of the abdomen pelvis as well as left lower extremity looking for abscess or gas given her increasing lactate. 12/26- overnight had afib c RVR and restarted on amio, 0-5cc/hr of UOP, afebrile, has had progression of skin changes on both LE. Significant extension of erythema over L upper thigh, several bullae have ruptured and denuded skin present, new dusky dicoloration of R hand fingertips and b/l toes. 12/27- no acute overnight events, no UOP, afebrile, no increase in demarcated areas of cellulitis spread today, stabilization of LA today on CRRT 12/28- no acute overnight events, no change in overall status, no UOP 12/29- no acute overnight events, sedation vacation held this morning and pt is restless but does not wake up, GCS 6T, anuric, afebrile Critical Care Note Critical care time (min.): 40 Exam Vital Signs Temp Pulse Resp BP Pulse Ox O2 Del Method O2 Flow Rate 96.8 F 132 H 20 150/110 H 90 L Mechanical Ventilation 30 12/29/24 12:31 12/29/24 13:15 12/29/24 12:31 12/29/24 13:15 12/29/24 12:31 12/27/24 18:00 12/28/24 17:00 FiO2 30 12/29/24 12:31 Narrative Exam Gen- NAD, intubated, sedated, morbidly obese HEENT- NC/AT, mucosa hydrated , pupils small but reactive , sclera anicteric, Chest- LCTAB, HRRR, no increase in WOB Abd- obese, s/nt/bs+ Ext- edema throughout, lymphedema b/l LE, mult areas of denuded skin on b/l LE, no further extension of cellulitis on LLE, black eschar on LLE, Vent AC VC Drips levo prop fent Physical Exam Completion Physical Exam Complete?: Yes Objective - [employer] [employer] Labs 12/29/24 13:30 12/29/24 05:00 Labs: Laboratory Results - last 24 hr 12/28/24 12/29/24 12/29/24 16:00 04:30 05:00 WBC 38.3 H* D RBC 3.51 L Hgb 9.1 L Hct 27.7 L MCV 79 L MCH 25.9 MCHC 32.9 RDW Std Deviation 51.9 H Plt Count 13 L* D Neut % (Auto) 79 Lymph % (Auto) 7 L [place] % (Auto) 4 Eos % (Auto) 0 Baso % (Auto) 0 Neut # (Auto) 30.2 H Lymph # (Auto) 2.9 [place] # (Auto) 1.4 H Eos # (Auto) 0.0 Baso # (Auto) 0.0 Immature Gran # (Auto) 3.85 H Absolute Nucleated RBC 0.19 H Immature Gran % 10 H Nucleated RBC % 1 H Smear Path Review TNP Puncture Site Arterial Line ABG pH 7.38 ABG pCO2 46 ABG pO2 109 H ABG HCO3 27 H ABG O2 Saturation 99 H ABG Base Excess 1 FiO2 30 Sodium 135 L 136 Potassium 3.9 3.6 Chloride 99 99 Carbon Dioxide 27.9 27.7 Anion Gap 8 9 BUN 10 23 Creatinine 0.6 1.1 D Estim Creat Clear Calc 158.8 85.7 eGFR > 60 59 L BUN/Creatinine Ratio 17 21 H Glucose 160 H 226 H D Calculated Osmolality 272 L 282 Calcium 9.2 9.1 Corrected Calcium 10.6 H 10.5 H Phosphorus 2.3 L Total Bilirubin 1.2 AST 45 H ALT 44 Alkaline Phosphatase 297 H Total Protein 5.6 L Albumin 2.2 L 2.2 L Globulin 3.4 Albumin/Globulin Ratio 0.6 L Misc Test Result Platelets confirmed Assessment & Plan Problem List (1) YOU (acute kidney injury): Status: Acute (2) Lymphedema: Status: Acute (3) Cellulitis of left leg: Status: Acute (4) Lactic acid acidosis: Status: Acute (5) Acute respiratory failure: Status: Acute (6) Septic shock: Status: Acute (7) Morbid obesity: Status: Acute Additional Plan Additional Plan: In brief this is a 54-year-old female admitted to the ICU for septic shock a/p [employer] Seizure disorder-continue patient's home meds Sedation- held today however pt remained with GCS 6T - grimace to pain however does not open eyes or moves puprosefully CV Shock- Distributive in nature and 2/2 sepsis -Patient felt to have toxic shock syndrome secondary to strep pyogenes - minimal change in vasopressor needs - echo results noted - Bcx with strep pyogenes - Given IVIG for toxic shock syndrome x 3 days -on meropenem and clindamycin - today is first day where pt appears to have stabilized and there is no active spreading/worsening of her LLE purpura and cellulitis - surgical in put is appreciated - off vasopressors today HFrEF- noted on echo with EF 45% - ? septic cardiomyopathy v ischemic -further eval as outpt Afib in the setting of acute illness - given amio - echo noted Resp Acute Resp Failure- intubated and sedated - fu with ABG and CXR - ween as able - vent adjustments made Renal YOU- remains anuric - started on HD today from CRRT with nephrology Anion gap metabolic acidosis- resolved HypoNa- hypervolemic hyponatremia GI Nutrition- advance tube feeds GI prophylaxis-PPI Transaminitis- in the setting of shock - alk phos also elevated - CT showed hepatocellular dz v cirrhosis Endo Diabetes-sliding scale insulin - Started on tube feeds Heme Thrombocytopenia- likely due to sepsis and consumption - no active bleeding at this time - transfused DVT proph- Heparin 7500 q8h -> on hold today due to PLT count Coagulopathy- elevated INR with elevated DDimer and fibrinogen - low level DIC - stable 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 Leukocytosis- on steroids - 2/2 probable necrotizing cellulitis - L shift noted - WBC# increasing -Question leukemoid reaction -Abdominal x-ray obtained to eval for dilated colon but appears normal Anemia- slow drift down - no brisk active bleeding noted ID UTI-urine cultures sent, UA suggestive of infection Cellulitis/SSTI-currently on meropenem and clindamycin - Likely source of sepsis - d/w surgery as I suspect a necrotizing SSTI with her elevated LA and rapid progression on her LLE-> stabilized today - d/w transfer center and pt not a candidate Case discussed with ICU Discussed with nephrology Labs, imaging and records reviewed Approximately 40 critical care minutes required for evaluation, exam, review, intervention, discussion formulation of plan of care for this critically ill patient with septic shock at high risk for further ongoing decompensation. Provider Notation Provider Notation: Although this document has been carefully reviewed, there may still be some phonetic and other typographical errors. These errors are purely grammatical due to imperfections in the software program and should not be construed in any way to compromise the substance of the patient's medical care during this visit. Thank you for the opportunity and privilege in assisting you with this patient's care and management.
[2024-12-29 13:52] LABS: Basophils # (Auto) 0.0 Thou/mm3 (0.0-0.2); Basophils % (Auto) 0 % (0-2.5); Eosinophils # (Auto) 0.0 Thou/mm3 (0.0-0.5); Eosinophils % (Auto) 0 % (0-10); Hematocrit 29.4 % (36.0-46.0); Hemoglobin 9.7 g/dL (12.0-16.0); Immature Granulocytes Auto 6.82 Thou/mm3 (0.00-0.00); Lymphocytes # (Auto) 3.2 Thou/mm3 (1.0-4.8); Lymphocytes % (Auto) 6 % (10-50); Mean Corpuscular HGB Conc 33.0 g/dl (31.0-37.0); Mean Corpuscular Hemoglobin 25.9 pg (25.0-35.0); Mean Corpuscular Volume 79 fL (80-100); Monocytes # (Auto) 1.7 Thou/mm3 (0.0-0.8); Monocytes % (Auto) 3 % (0-12); Neutrophils # (Auto) 42.3 Thou/mm3 (1.8-7.7); Neutrophils % (Auto) 78 % (37-80); Nucleated Red Blood Cell # 0.33 Thou/mm3 (0.00-0.00); Nucleated Red Blood Cell % 1 /100 WBC (0); RDW Standard Deviation 51.6 fL (36.4-46.3); Red Blood Count 3.74 Miln/mm3 (4.00-5.20)
[2024-12-29 14:19] LABS: Platelet Count 17 Thou/mm3 (140-440); White Blood Count 54.0 Thou/mm3 (3.6-11.0)
[2024-12-29] MEDS: fentaNYL 2,500 MCG/250 ML BAG 2,500 MCG/250 ML BAG 20 MCG IV (14:22)
[2024-12-29] MEDS: ALBUMIN HUMAN-KJDA 25% IVPB 25 GM/100 ML BTL IV ×2 (14:30→16:08)
[2024-12-29 14:58] LABS: Slide Review Platelets confirmed
[2024-12-29 15:04] LABS: Band Neutrophils (Manual) 12 % (0-6); Blast Cells (Manual) 1.0; Lymphocytes (Manual) 7 % (20-44); Monocytes (Manual) 7 % (2-9); Neutrophils (Manual) 72 % (50-70); Promyelocytes (Manual) 1 % (0-0)
[2024-12-29 15:25] LABS: Path Review Blood Smear Sent to Pathologist
--- NOTE | 2024-12-29 16:11 | PC.NURSE ---
BP TRENDING DOWN, PT REMAINS W/O DISTRESS NOTED. WILL ADMIN ANOTHER PRN ALBUMIN 25/100ML PER MD WASIQ, ORDERS CARRIED OUT WILL CONT. TO MONITOR
--- NOTE | 2024-12-29 16:25 | PC.NURSE ---
BP TRENDING DOWN, PT REMAINS W/O DISTRESS NOTED, UF GOAL LOWERED TO 1.7L TOLERATED
--- NOTE | 2024-12-29 16:31 | PC.NURSE ---
BP REMIANS LOW, ICU MD LEO NOTIFIED W/ ORDER TO CONT. TX LONG MAP REMAINS ABOVE <=60, WILL CONT. TO MONITOR. MD ENCARNACION NOTIFIED.
[2024-12-29] MEDS: HEPARIN SOD INJ 1000 UNIT/ML VIAL 10 ML 3000 UNIT INDWELLCAT (16:57)
[2024-12-29 23:05] LABS: Hepatitis A Antibody IgM Non Reactive (Non React); Hepatitis B Core Antibody IgM Non Reactive (Non React); Hepatitis B Surface Ab Reactive (Immune) (Immune); Hepatitis B Surface Antigen Non Reactive (Non React); Hepatitis C Antibody Non Reactive (Non React)
[2024-12-30] VITALS (91 sets, daily range): BP systolic 80–207; BP diastolic 48–201; PULSE 116–138; RESP 13–34; TEMP 36.2–36.9; O2SAT 75–100; BMI 65.7
[2024-12-30] MEDS: fentaNYL 2,500 MCG/250 ML BAG 2,500 MCG/250 ML BAG 25 MCG IV ×3 (00:36→21:35)
[2024-12-30] MEDS: HYDROCORTISONE SOD SUCC INJ 100 MG 2 ML VIAL 50 MG IV ×3 (00:48→21:39)
[2024-12-30] MEDS: PROPOFOL 1,000 MG IVPB 1,000 MG/100 ML VIAL 9.444 MG IV (04:00)
[2024-12-30 04:58] LABS: Base Excess 1 (-3-3); HCO3 27 mEq/L (20-26); Inspired Oxygen, FIO2 30 %; O2 Saturation 99 % (91-98); PCO2 47 mmHg (32.0-48.0); PO2 121 mmHg (83-108); pH, Arterial 7.37 (7.35-7.45)
[2024-12-30 05:00] LABS: Allen Test Not Performed; Puncture Site Right Radial
[2024-12-30 05:30] LABS: Basophils # (Auto) 0.1 Thou/mm3 (0.0-0.2); Basophils % (Auto) 0 % (0-2.5); Eosinophils # (Auto) 0.0 Thou/mm3 (0.0-0.5); Eosinophils % (Auto) 0 % (0-10); Hematocrit 21.5 % (36.0-46.0); Immature Granulocytes Auto 4.91 Thou/mm3 (0.00-0.00); Lymphocytes # (Auto) 3.3 Thou/mm3 (1.0-4.8); Lymphocytes % (Auto) 8 % (10-50); Mean Corpuscular HGB Conc 33.0 g/dl (31.0-37.0); Mean Corpuscular Hemoglobin 26.0 pg (25.0-35.0); Mean Corpuscular Volume 79 fL (80-100); Monocytes # (Auto) 1.4 Thou/mm3 (0.0-0.8); Monocytes % (Auto) 3 % (0-12); Neutrophils # (Auto) 32.8 Thou/mm3 (1.8-7.7); Neutrophils % (Auto) 77 % (37-80); Nucleated Red Blood Cell # 0.33 Thou/mm3 (0.00-0.00); Nucleated Red Blood Cell % 1 /100 WBC (0); RDW Standard Deviation 51.2 fL (36.4-46.3); Red Blood Count 2.73 Miln/mm3 (4.00-5.20)
[2024-12-30 05:43] LABS: Hemoglobin 7.1 g/dL (12.0-16.0); Platelet Count 13 Thou/mm3 (140-440); White Blood Count 42.5 Thou/mm3 (3.6-11.0)
[2024-12-30] MEDS: MEROPENEM INJ 1,000 MG in SODIUM CHLORIDE 0.9% (Popper) 50 ML 100 MG IV (06:07)
[2024-12-30] MEDS: CLINDAMYCIN/NS 600 MG IVPB 600 MG/50 ML BAG 100 MG IV (06:08)
[2024-12-30 06:13] LABS: Slide Review Platelets confirmed
[2024-12-30 06:15] LABS: Path Review Blood Smear Sent to Pathologist
[2024-12-30 06:28] LABS: Alanine Aminotransferase 38 U/L (10-49); Albumin, Serum 2.6 gm/dL (3.5-5.0); Albumin/Globulin Ratio 0.8 (1.2-2.2); Alkaline Phosphatase 250 U/L (46-116); Anion Gap 10 (7-16); Aspartate Amino Transferase 35 U/L (0-34); BUN/Creatinine Ratio 25 Ratio (12-20); Bilirubin,Total 1.5 mg/dL (0.3-1.2); Blood Urea Nitrogen 27 mg/dL (9-23); Calcium 8.4 mg/dL (8.3-10.6); Calcium (Corrected) 9.5 mg/dL (8.5-10.1); Carbon Dioxide 26.2 mMol/L (20.0-31.0); Chloride 101 mMol/L (98-107); Creatinine (Component) 1.1 mg/dL (0.6-1.3); Estimated Creatinine Clearance 85.7 mL/min (>60); Globulin 3.1 gm/dL (2.3-3.5); Glucose 220 mg/dL (74-106); Osmolality,Calculated 285 (275-295); Phosphorous 2.8 mg/dL (2.4-5.1); Potassium 3.8 mMol/L (3.4-5.1); Sodium 137 mMol/L (136-145); Total Protein 5.7 gm/dL (5.7-8.2); eGFR 59 See Note
[2024-12-30] MEDS: CLOTRIMAZOLE CR 1% 30 GM TUBE TOP ×2 (08:13→21:39)
[2024-12-30 08:18] LABS: Hematocrit 27.0 % (36.0-46.0)
--- NOTE | 2024-12-30 08:30 | PD.RESPRO ---
Documentation for date of: 12/30/24 Subjective Subjective Interval history: Patient was seen and assessed at bedside. Patient remains intubated and mechanically ventilated. Bedside BP 184/113, heart rate remains in 115-118, continues to be on norepinephrine drip 16mg and vasopressin this morning. Amiodarone continues to be held by the primary team as the patient continues to be in sinus rhythm. Hgb dropped to 7.1 from 9.7 yesterday. Potassium 3.8, phosphate 2.8, creatinine 1.1. Day 4 of CRRT today in setting of YOU in setting of shock. Exam Vital Signs Temp Pulse Resp BP Pulse Ox O2 Del Method O2 Flow Rate 97.7 F 122 H 21 H 150/121 H 100 Mechanical Ventilation 30 12/30/24 00:00 12/30/24 07:30 12/29/24 19:17 12/30/24 07:30 12/30/24 07:30 12/29/24 16:00 12/28/24 17:00 FiO2 30 12/30/24 06:05 Narrative Exam Narrative Exam GENERAL: Patient is intubated and mechanically ventilated. Remains on sedation. HEENT: NC/AT, trachea appears midline, androgenic hair distribution on the chin CARDIOVASCULAR: regular rhythm, tachycardic PULMONARY: symmetric chest rise, on vent, decreased air entry bilaterally due to body habitus ABDOMINAL: soft, non-distended, bowel sounds present EXTREMITIES: Severe left leg swelling with severe hyperkeratotic changes. Left leg swelling with severe hyperkeratotic changes bilaterally. Majority of bullae have ruptured, wounds have been dressed. Cellulitis appears to be improving, withdrawing from marked borders. NEURO: limited due to patient mental status and intubation Objective Labs 12/31/24 05:40 12/31/24 05:40 Labs: Laboratory Results - last 24 hr 12/29/24 12/29/24 12/29/24 05:00 10:16 13:30 WBC 54.0 H* D RBC 3.74 L Hgb 9.7 L Hct 29.4 L MCV 79 L MCH 25.9 MCHC 33.0 RDW Std Deviation 51.6 H Plt Count 17 L* D Neut % (Auto) 78 Lymph % (Auto) 6 L [place] % (Auto) 3 Eos % (Auto) 0 Baso % (Auto) 0 Neut # (Auto) 42.3 H Lymph # (Auto) 3.2 [place] # (Auto) 1.7 H Eos # (Auto) 0.0 Baso # (Auto) 0.0 Immature Gran # (Auto) 6.82 H Absolute Nucleated RBC 0.33 H Immature Gran % 13 H Neutrophils % (Manual) 72 H Monocytes % (Manual) 7 Promyelocytes % 1 H Nucleated RBC % 1 H Band Neutrophils 12 H D Lymphocytes (Manual) 7 L Blast Cells 1.0 Smear Path Review Sent to Pathologist Puncture Site ABG pH ABG pCO2 ABG pO2 ABG HCO3 ABG O2 Saturation ABG Base Excess FiO2 Sodium Potassium Chloride Carbon Dioxide Anion Gap BUN Creatinine Estim Creat Clear Calc eGFR BUN/Creatinine Ratio Glucose Calculated Osmolality Calcium Corrected Calcium Phosphorus Total Bilirubin AST ALT Alkaline Phosphatase Total Protein Albumin Globulin Albumin/Globulin Ratio Hepatitis A IgM Ab Non Reactive Hep Bs Antigen Non Reactive Hep Bs Antibody Reactive (Immune) Hep B Core IgM Ab Non Reactive Hepatitis C Antibody Non Reactive Misc Test Result Platelets confirmed Crossmatch See Detail Blood Bank Comment PLATP Ready 12/30/24 12/30/24 04:10 04:50 WBC 42.5 H* D RBC 2.73 L Hgb 7.1 L D Hct 21.5 L* MCV 79 L MCH 26.0 MCHC 33.0 RDW Std Deviation 51.2 H Plt Count 13 L* D Neut % (Auto) 77 Lymph % (Auto) 8 L [place] % (Auto) 3 Eos % (Auto) 0 Baso % (Auto) 0 Neut # (Auto) 32.8 H Lymph # (Auto) 3.3 [place] # (Auto) 1.4 H Eos # (Auto) 0.0 Baso # (Auto) 0.1 Immature Gran # (Auto) 4.91 H Absolute Nucleated RBC 0.33 H Immature Gran % 12 H Neutrophils % (Manual) Monocytes % (Manual) Promyelocytes % Nucleated RBC % 1 H Band Neutrophils Lymphocytes (Manual) Blast Cells Smear Path Review Sent to Pathologist Puncture Site Right Radial ABG pH 7.37 ABG pCO2 47 ABG pO2 121 H ABG HCO3 27 H ABG O2 Saturation 99 H ABG Base Excess 1 FiO2 30 Sodium 137 Potassium 3.8 Chloride 101 Carbon Dioxide 26.2 Anion Gap 10 BUN 27 H Creatinine 1.1 Estim Creat Clear Calc 85.7 eGFR 59 L BUN/Creatinine Ratio 25 H Glucose 220 H Calculated Osmolality 285 Calcium 8.4 Corrected Calcium 9.5 Phosphorus 2.8 Total Bilirubin 1.5 H AST 35 H ALT 38 Alkaline Phosphatase 250 H D Total Protein 5.7 Albumin 2.6 L Globulin 3.1 Albumin/Globulin Ratio 0.8 L Hepatitis A IgM Ab Hep Bs Antigen Hep Bs Antibody Hep B Core IgM Ab Hepatitis C Antibody Misc Test Result Platelets confirmed Crossmatch Blood Bank Comment ABG Interpretation ABG results: 12/22/24 12/22/24 12/23/24 16:49 23:40 13:05 ABG pH 7.39 7.29 L D ABG pCO2 33 37 ABG pO2 60 L 73 L ABG HCO3 20 18 L ABG O2 Saturation 92 94 ABG Base Excess -5 L -8 L VBG pH 7.35 VBG pCO2 37 VBG pO2 27 VBG Base Excess -5 L 12/24/24 12/24/24 12/24/24 08:54 17:12 17:19 ABG pH 7.25 L 7.16 L* ABG pCO2 34 36 ABG pO2 166 H D 127 H D ABG HCO3 15 L 13 L ABG O2 Saturation 100 H 99 H ABG Base Excess -11 L -15 L VBG pH 7.12 L VBG pCO2 42 VBG pO2 44 VBG Base Excess -15 L 12/24/24 12/24/24 12/25/24 19:45 22:40 04:47 ABG pH 7.10 L* 7.21 L D 7.36 D ABG pCO2 50 H D 38 D 37 ABG pO2 249 H D 249 H 191 H D ABG HCO3 15 L 15 L 21 ABG O2 Saturation 100 H 100 H 100 H ABG Base Excess -14 L -12 L -4 L VBG pH VBG pCO2 VBG pO2 VBG Base Excess 12/25/24 12/25/24 12/26/24 15:59 19:55 04:10 ABG pH 7.41 7.41 7.36 ABG pCO2 37 39 37 ABG pO2 128 H D 123 H 99 D ABG HCO3 23 24 21 ABG O2 Saturation 100 H 99 H 98 ABG Base Excess -1 0 -4 L VBG pH VBG pCO2 VBG pO2 VBG Base Excess 12/27/24 12/27/24 12/28/24 04:08 09:45 04:14 ABG pH 7.47 H D 7.42 7.39 ABG pCO2 36 41 45 ABG pO2 82 L 97 114 H ABG HCO3 26 27 H 27 H ABG O2 Saturation 98 99 H 99 H ABG Base Excess 2 2 2 VBG pH VBG pCO2 VBG pO2 VBG Base Excess 12/29/24 12/30/24 04:30 04:50 ABG pH 7.38 7.37 ABG pCO2 46 47 ABG pO2 109 H 121 H ABG HCO3 27 H 27 H ABG O2 Saturation 99 H 99 H ABG Base Excess 1 1 VBG pH VBG pCO2 VBG pO2 VBG Base Excess Quality Measures Quality Measures VTE prophylaxis Assessment & Plan Assessment Current Active Medications: Generic Name Dose Route Start Last Admin Trade Name Freq PRN Reason Stop Dose Admin Acetaminophen 650 mg 12/22/24 17:09 12/23/24 10:19 Acetaminophen 325 Mg Tablet PO 01/21/25 17:08 650 mg Q6H PRN Administration Pain 1-3 and/or Fever >100.1 Albuterol/Ipratropium 3 ml 12/23/24 09:36 Albuterol/Ipratropium (Duoneb) Rt Ginny 3 Ml Nebu INH 01/22/25 07:44 Q8HRRT PRN wheezing Clotrimazole 0 gm 12/23/24 09:00 12/30/24 08:13 Clotrimazole Cr 1% 30 Gm Tube TOP 01/22/25 08:59 1 applicatio BID TRACY Administration Dextrose 25 ml 12/22/24 17:09 12/25/24 23:07 Dextrose 50%-Water Inj 50 Ml Syringe IV 01/21/25 17:08 25 ml Q15MIN PRN Administration BG 50-70 responsive npo pt Dextrose 50 ml 12/22/24 17:09 12/25/24 14:03 Dextrose 50%-Water Inj 50 Ml Syringe IV 01/21/25 17:08 50 ml Q15MIN PRN Administration BG <50 OR BG <70 & pt unresponsive Docusate Sodium 100 mg 12/28/24 09:15 12/29/24 20:06 Docusate Sod Liqd 100 Mg/10 Ml Udc PO 01/27/25 09:14 100 mg BID TRACY Administration Protocol Glucagon 1 mg 12/22/24 17:09 Glucagon Inj 1 Mg Vial IM Q15MIN PRN BG <70, and no IV access Heparin Sodium (Porcine) 7,500 unit 12/23/24 14:00 12/29/24 05:12 Heparin Sod Inj 5000 Unit/Ml Vial SC 01/06/25 13:59 7,500 unit On Hold: 12/29/24 10:17 Q8HR TRACY Administration Heparin Sodium (Porcine) 3,000 unit 12/27/24 12:35 12/29/24 16:57 Heparin Sod Inj 1000 Unit/Ml Vial 10 Ml INDWELLCAT 01/10/25 12:34 3,000 unit PRN PRN Administration DIALYSIS Hydrocortisone Sodium Succinate 50 mg 12/24/24 18:00 12/30/24 06:05 Hydrocortisone Sod Succ Inj 100 Mg 2 Ml Vial IV 01/23/25 17:59 50 mg Q6HR TRACY Administration Norepinephrine Bitartrate 16 mg in 250 mls @ 7.369 mls/hr 12/23/24 07:12 12/30/24 07:38 Levophed In Ns 16mg/250ml IV 01/22/25 07:11 0 mcg/kg/min .Q24H PRN 0 mls/hr PER protocol Titration Protocol 0.05 MCG/KG/MIN Clindamycin/Sodium Chloride 600 mg in 50 mls @ 100 mls/hr 12/23/24 09:35 12/30/24 06:08 Cleocin/Ns Ivpb IV 01/01/25 09:34 100 mls/hr Q8HR TRACY Administration Propofol 1,000 mg in 100 mls @ 4.722 mls/hr 12/24/24 16:53 12/30/24 07:38 Diprivan Ivpb IV 01/23/25 16:52 0 mcg/kg/min .[id number] PRN 0 mls/hr Per Protocol Titration Protocol 5 MCG/KG/MIN Vasopressin/Sodium Chloride 20 unit in 100 mls @ 9 mls/hr 12/24/24 17:09 Vasostrict/Ns Ivpb IV 01/23/25 17:08 .[id number] PRN PER PROTOCOL Protocol 0.03 UNIT/MIN Meropenem 1,000 mg/ Sodium 50 mls @ 100 mls/hr 12/29/24 14:00 12/30/24 06:07 Chloride IV 01/03/25 13:59 100 mls/hr Q8HR TRACY Administration Albumin Human 25 gm in 100 mls @ 100 mls/min 10/01/25 14:21 12/29/24 16:08 Albuminex 25% Ivpb IV 100 mls/min PRN PRN Administration DIALYSIS Fentanyl Citrate 2,500 mcg in 250 mls @ 20 mls/hr 12/29/24 17:41 12/30/24 07:38 Sublimaze Inj 2,500 Mcg/250 Ml Bag IV 01/03/25 17:40 0 mcg/hr .[id number] PRN 0 mls/hr PER PROTOCOL Titration Protocol 200 MCG/HR Ondansetron HCl 4 mg 12/22/24 17:09 Ondansetron Inj 2 Mg/Ml Inj 2 Ml IVP 01/21/25 17:08 Q6H PRN NAUSEA OR VOMITING Protocol Pantoprazole Sodium 40 mg 12/25/24 11:15 12/29/24 08:41 Pantoprazole Inj 40 Mg Vial IVP 01/24/25 11:14 40 mg QDAY TRACY Administration Pharmacy Consult 1 each 12/23/24 11:15 Pharmacy Renal Dose Adjustment 1 Ea XX 01/22/25 11:14 PRN PRN CONSULT Sennosides 1 tab 12/22/24 17:09 Senna Tablet PO 01/21/25 17:08 QDAY PRN constipation Protocol Plan Patient is a 54-year-old female with past medical history of IDDM2, bilateral lower limb lymphedema, lipedema, asthma, epilepsy, morbid obesity, wheelchair-bound for 9 years, was brought to the ED on 12/22/24 for left lower extremity pain and clear cirrhosis fluid oozing. Patient was admitted to the ICU for distributive shock. Cardiology team consulted for new onset A-fib with RVR and newly diagnosed CHF. #New onset A-fib with RVR likely induced by shock state #Streptococcus pyogenes bacteremia 2/ LLE cellulitis Initially presented with sepsis secondary to left leg cellulitis however rapidly worsened to distributive shock. Developed A-fib with RVR likely secondary to shock, started on amiodarone drip. No known history of A-fib. 12/22/24 Echo showed Over all poor images due to body habitus and technically difficult study. Normal left ventricular size and function.Stage I diastolic dysfunction. Estimated ejection fraction is 40-45%. Normal right ventricular size and function. RVSP 39 mm Hg with RAP 8. Mild pulmonary HTN Trace MR and Mild TR. TDS due to patient morbid and laying on supine view, couldn't move. (patient had open wounds under breast) 12/25/2024 patient was started on CRRT due to worsening lactic acidosis and kidney function, blood culture growing Streptococcus pyogenes. 12/27/2024, amiodarone drip was stopped by the primary team as the patient converted to sinus rhythm. Patient was having tachycardia heart rate of 113 however it was regular sinus. Plan ? Patient is currently in sinus rhythm but recommend to restart amiodarone drip to maintain this ? Due to patient condition no invasive cardiac procedure will be done at this time ? Strict in and out ? Keep potassium and magnesium above 4 and 2 respectively within normal range #Newly diagnosed HFrEF (40-45%, 11/2024) Bedside echo showed ejection fraction of 40 to 45%. With normal RV function. BNP was 204 which most likely skewed by patient obesity. Troponin was negative. 12/22/24 Echo showed Over all poor images due to body habitus and technically difficult study. Normal left ventricular size and function.Stage I diastolic dysfunction. Estimated ejection fraction is 40-45%. Normal right ventricular size and function. RVSP 39 mm Hg with RAP 8. Mild pulmonary HTN Trace MR and Mild TR. TDS due to patient morbid and laying on supine view, couldn't move. (patient had open wounds under breast) ? Will start the patient on GDMT as soon as her general condition improved #Distributive shock most likely secondary to sepsis #Sepsis secondary to left leg cellulitis #Toxic shock syndrome #Lower extremity lymphedema Plan ? Primary team discontinued clindamycin and meropenem, started on CFX 2 gm - Was also given IgG immunoglobulin ? Continues to be on norepinephrine drip and vasopressin for distributive shock #History of COPD Supplemental oxygen, BiPAP as needed, DuoNebs #Elevated bilirubin, elevated AST, hypoalbuminemia Secondary to toxic shock syndrome versus septic shock #History of seizure disorder #Concern of DIC #Lactic acidosis improving s/p CRRT #YOU #On conventional dialysis #Non-anion gap metabolic acidosis Follow primary team recommendations Thank you for your consultation, please do not hesitate to reach out if you have any question or concern Patient plan of care was discussed with the attending physician, Dr. Chapa. Obdulia Evans, PGY-1 Attending Provider Attestation/Addendum I have personally seen and examined the patient separately on the above date of service and discussed the plan of care with the resident. I reviewed the resident Dr. Obdulia Evans consultation progress note and agree with the resident findings and plan in the note above and have also edited the documentation to reflect my findings and plan. Alex Chapa M.D. Interventional Cardiology
[2024-12-30 08:35] LABS: Hemoglobin 8.9 g/dL (12.0-16.0)
[2024-12-30] MEDS: DOCUSATE SOD LIQD 100 MG/10 ML UDC PO ×2 (08:37→21:38)
--- NOTE | 2024-12-30 10:10 | ESPR_ITS ---
<Statement entered by Jamar Schneider MD - 12/30/24 16:12> Patient seen and examined at bedside. I discussed and supervised with the rn internship physician who took care of this patient. I personally saw and examined the patient. I agree with most of the assessment and plan. Patient weaned off sedation and pressors this morning. After sedation was weaned off, patient had GCS 9T, appeared restless and in distress, likely due to pain in legs. This time patient became hypertensive, with consistent elevated blood pressures MAP greater than 100. Sedation was resumed and propofol and fentanyl titrated to maintain RASS goal 0. Patient remains sinus tachycardia without A-fib. Plan for dialysis today with fluid removal per nephrology. No significant changes in appearance of bilateral lower extremities. WBC down trended to 42.5. Platelets remain low at 13, patient not actively bleeding, will continue to monitor and hold off on transfusion at this time. Given patient's infection does not appear to be spreading, narrowed antibiotics from meropenem and clindamycin to ceftriaxone based on strep pyogenes and blood cultures (12/22). Patient has been poor candidate for extubation, has been on vent for approximately 7 days. Spoke with patient's family, plan for further goals of care in person if possible. Plan of care discussed with attending Dr. Donovan. Jamar Schneider MD PGY-2 Documentation for date of: 12/30/24 Subjective Subjective Interval history: 54-year-old female with past medical history of prior [place] (questionable), insulin-dependent type 2 diabetes, lymphedema, lipedema, asthma, epilepsy, morbid obesity, nonambulatory for 9 years, wheelchair-bound presenting to the ED on 12/22 with left lower extremity pain and oozing. Patient states that about 3 weeks ago she slammed her left leg on a brick wall and ever since that time her left leg has progressively worsened and started oozing. Patient lives at home and is largely immobile and requires music engineer in the form of her grandson who takes care of her. Patient has not been seen by outpatient wound care as she says her motorized wheelchair has been broken. Patient also states that she has had a heart attack in the past but has never followed up with cardiology. Patient also has asthma but she denies having any shortness of breath at this time, uses albuterol twice a week. Medical history: As stated above Surgical history: Denies Allergies: Aspirin, codeine, Keppra, morphine, penicillin causes dyspnea Medications: Pending med rec Family history: Patient's mother and grandmother from breast cancer, denies having any family history of heart attack or stroke Social history: Patient lives at home, grandson music engineer, denies any alcohol, tobacco or illicit drug use ROS: All 12 systems assessed and the patient denies unless otherwise stated in HPI In the ED, patient presented mildly hypotensive 92/56, heart rate of 92, respiratory rate of 18, afebrile satting 96 on room air. Pertinent lab findings include WBC of 5.8, potassium 3.1, creatinine 1.8, eGFR of 33, lactic acid initially 7.1 uptrending to 8.0, T. bili of 2.2, AST 21, ALT 14, BNP of 385, Pro-Umberto of 87. Urinalysis shows signs of urinary tract infection. Venous Doppler study is negative for DVT, chest x-ray does not show any active disease and tibia/fibula x-ray shows no acute fracture. Patient was admitted to floors for sepsis secondary to cellulitis. On 12/23, BRAKE OPERATOR HELPER was called due to hypotension, despite aggressive fluid resuscitation patient was remained persistent hypotensive, however nursing staff was having a hard time to obtain accurate measurement due to body habitus. Repeat labs did revealed lactic acidosis which did not improved even after 5 L of fluids, Cheetah monitor was placed, patient found to be not fluid responsive. At this point decision was made to upgrade patient to ICU for pressor support. *Refer to previous notes for Interval History from 12/23-12/28* 12/29/2024: Patient seen and examined at bedside. Patient is occasionally moving/wincing from pain, no eye or voice response to pain, GCS of 6t. Patient was on and off levophed this morning, currently off of levophed now. Patient vitals this morning were BP 146/86, HR 120, Saturating well on AC/MV FIO2 of 30, PEEP of 12. Patient urine output of 34 ml for last 24 hours. Net I/O for hospitalization is +18 liters. 2 BM last 24 hours. Patient's WBC downtrended core sucker to 38 and uptrended in early PM to 54 (done to check on PLT count, but platelets not given yet because of low supply, PLT count currently 17). ABG pH 7.38 this morning. 12/30/2024: No acute events overnight. Patient was seen and assessed at bedside. Patient remains intubated and mechanically ventilated. Bedside BP has been 140 systolically, well above MAP goal, heart rate has been in 120-130s this morning, has been on low dose levophed overnight. Patient was taken off sedation, has been having more elevated blood pressures likely due to pain and has been able to shake her head yes in response to be asked if she is in pain. Patient was moving her limbs spontaneously this morning along with non-localized movements in response to pain. Patient did not respond verbally to pain nor did she open her eyes to pain. Patient's cellulitis and lymphedema appears similar to yesterday. Patient made more urine (215 ml) in the past 24 hours compared to previous days. Patient had 1 bowel movement. Patients wbc 42 (54), hgb 7.1 -> 8.9 after repeat h&h; abg continues to be favorable; blood cx x1 grew GPC in clusters. Patient's daughter and grandson were contacted in regards to goals of care discussion. Hoping to have grandson come to the hospital for goals of care discussion tomorrow with daughter on face-time as she is unable to attend to hospital in person and is also the medical decision maker for her mother. Exam Vital Signs Temp Pulse Resp BP Pulse Ox O2 Del Method O2 Flow Rate 98.1 F 129 H 21 H 150/145 H 100 Mechanical Ventilation 30 12/30/24 08:01 12/30/24 10:04 12/29/24 19:17 12/30/24 10:04 12/30/24 10:04 12/29/24 16:00 12/28/24 17:00 FiO2 30 12/30/24 10:04 Narrative Exam General: Morbidly obese, Intubated, Sedated, GCS 9t (occasional withdrawal from pain, no eye/speech response) Skin: Refer to extremities; Mild pressure injuries on back, upper buttock HENT: NCAT, EOMI, not icteric. External ears normal. No rhinorrhea. Dry mucous membranes Cardiovascular: Tachycardic, regular rhythm, no murmur, +S1/S2 (difficult to assess with body habitus) Respiratory: Lungs CTAB (difficult to assess with body habitus) GI: Soft, nontender, non-distended. No guarding or rebound tenderness Extremities: BL LE skin Lower extremity erythema extending up the lateral left thigh and reaches up towards the left side of patient's hip and torso as well as bullae bilaterally; cyanotic/ischemic appearance of bilateral toes (worse on the left foot). Necrotic lesions of the toes on left foot. Multiple areas of induration and denuded skin of bilateral lower extremities anteriorly. Mottling noted of right lower extremity. Posterior left thigh appears purple and engorged. New discolored lesion near right buttock. R sided popliteal pulse able to be appreciated by handheld Doppler; L sided LE pulses unable to be palpated or appreciated by handheld doppler although L LE is warm and red in color. Dusky discoloration of right fingers have spread to DIP, dusky discoloration noted of left pointer finger and middle finger. Hands feel cold and puffy. Hyperkeratinization and lichenification of both feet. Neuro: GCS 9t (occasional withdrawal from pain, no eye/speech response), Intubated, Sedated Psychiatric: Not examined (Intubated, Sedated) Objective Labs 12/30/24 07:45 12/30/24 04:10 Labs: Laboratory Results - last 24 hr 12/29/24 12/29/24 12/29/24 05:00 10:16 13:30 WBC 54.0 H* D RBC 3.74 L Hgb 9.7 L Hct 29.4 L MCV 79 L MCH 25.9 MCHC 33.0 RDW Std Deviation 51.6 H Plt Count 17 L* D Neut % (Auto) 78 Lymph % (Auto) 6 L Simpson % (Auto) 3 Eos % (Auto) 0 Baso % (Auto) 0 Neut # (Auto) 42.3 H Lymph # (Auto) 3.2 Simpson # (Auto) 1.7 H Eos # (Auto) 0.0 Baso # (Auto) 0.0 Immature Gran # (Auto) 6.82 H Absolute Nucleated RBC 0.33 H Immature Gran % 13 H Neutrophils % (Manual) 72 H Monocytes % (Manual) 7 Promyelocytes % 1 H Nucleated RBC % 1 H Band Neutrophils 12 H D Lymphocytes (Manual) 7 L Blast Cells 1.0 Smear Path Review Sent to Pathologist Puncture Site ABG pH ABG pCO2 ABG pO2 ABG HCO3 ABG O2 Saturation ABG Base Excess FiO2 Sodium Potassium Chloride Carbon Dioxide Anion Gap BUN Creatinine Estim Creat Clear Calc eGFR BUN/Creatinine Ratio Glucose Calculated Osmolality Calcium Corrected Calcium Phosphorus Total Bilirubin AST ALT Alkaline Phosphatase Total Protein Albumin Globulin Albumin/Globulin Ratio Hepatitis A IgM Ab Non Reactive Hep Bs Antigen Non Reactive Hep Bs Antibody Reactive (Immune) Hep B Core IgM Ab Non Reactive Hepatitis C Antibody Non Reactive Misc Test Result Platelets confirmed Blood Type Cancelled Rho(D) Type Cancelled Antibody Screen Cancelled Crossmatch See Detail Blood Bank Wristband ID Cancelled Blood Bank Comment PLATP Ready 12/30/24 12/30/24 12/30/24 04:10 04:50 07:45 WBC 42.5 H* D RBC 2.73 L Hgb 7.1 L D 8.9 L D Hct 21.5 L* 27.0 L MCV 79 L MCH 26.0 MCHC 33.0 RDW Std Deviation 51.2 H Plt Count 13 L* D Neut % (Auto) 77 Lymph % (Auto) 8 L Simpson % (Auto) 3 Eos % (Auto) 0 Baso % (Auto) 0 Neut # (Auto) 32.8 H Lymph # (Auto) 3.3 Simpson # (Auto) 1.4 H Eos # (Auto) 0.0 Baso # (Auto) 0.1 Immature Gran # (Auto) 4.91 H Absolute Nucleated RBC 0.33 H Immature Gran % 12 H Neutrophils % (Manual) Monocytes % (Manual) Promyelocytes % Nucleated RBC % 1 H Band Neutrophils Lymphocytes (Manual) Blast Cells Smear Path Review Sent to Pathologist Puncture Site Right Radial ABG pH 7.37 ABG pCO2 47 ABG pO2 121 H ABG HCO3 27 H ABG O2 Saturation 99 H ABG Base Excess 1 FiO2 30 Sodium 137 Potassium 3.8 Chloride 101 Carbon Dioxide 26.2 Anion Gap 10 BUN 27 H Creatinine 1.1 Estim Creat Clear Calc 85.7 eGFR 59 L BUN/Creatinine Ratio 25 H Glucose 220 H Calculated Osmolality 285 Calcium 8.4 Corrected Calcium 9.5 Phosphorus 2.8 Total Bilirubin 1.5 H AST 35 H ALT 38 Alkaline Phosphatase 250 H D Total Protein 5.7 Albumin 2.6 L Globulin 3.1 Albumin/Globulin Ratio 0.8 L Hepatitis A IgM Ab Hep Bs Antigen Hep Bs Antibody Hep B Core IgM Ab Hepatitis C Antibody Misc Test Result Platelets confirmed Blood Type Rho(D) Type Antibody Screen Crossmatch Blood Bank Wristband ID Blood Bank Comment ABG Interpretation ABG results: 12/22/24 12/22/24 12/23/24 16:49 23:40 13:05 ABG pH 7.39 7.29 L D ABG pCO2 33 37 ABG pO2 60 L 73 L ABG HCO3 20 18 L ABG O2 Saturation 92 94 ABG Base Excess -5 L -8 L VBG pH 7.35 VBG pCO2 37 VBG pO2 27 VBG Base Excess -5 L 12/24/24 12/24/24 12/24/24 08:54 17:12 17:19 ABG pH 7.25 L 7.16 L* ABG pCO2 34 36 ABG pO2 166 H D 127 H D ABG HCO3 15 L 13 L ABG O2 Saturation 100 H 99 H ABG Base Excess -11 L -15 L VBG pH 7.12 L VBG pCO2 42 VBG pO2 44 VBG Base Excess -15 L 12/24/24 12/24/24 12/25/24 19:45 22:40 04:47 ABG pH 7.10 L* 7.21 L D 7.36 D ABG pCO2 50 H D 38 D 37 ABG pO2 249 H D 249 H 191 H D ABG HCO3 15 L 15 L 21 ABG O2 Saturation 100 H 100 H 100 H ABG Base Excess -14 L -12 L -4 L VBG pH VBG pCO2 VBG pO2 VBG Base Excess 12/25/24 12/25/24 12/26/24 15:59 19:55 04:10 ABG pH 7.41 7.41 7.36 ABG pCO2 37 39 37 ABG pO2 128 H D 123 H 99 D ABG HCO3 23 24 21 ABG O2 Saturation 100 H 99 H 98 ABG Base Excess -1 0 -4 L VBG pH VBG pCO2 VBG pO2 VBG Base Excess 12/27/24 12/27/24 12/28/24 04:08 09:45 04:14 ABG pH 7.47 H D 7.42 7.39 ABG pCO2 36 41 45 ABG pO2 82 L 97 114 H ABG HCO3 26 27 H 27 H ABG O2 Saturation 98 99 H 99 H ABG Base Excess 2 2 2 VBG pH VBG pCO2 VBG pO2 VBG Base Excess 12/29/24 12/30/24 04:30 04:50 ABG pH 7.38 7.37 ABG pCO2 46 47 ABG pO2 109 H 121 H ABG HCO3 27 H 27 H ABG O2 Saturation 99 H 99 H ABG Base Excess 1 1 VBG pH VBG pCO2 VBG pO2 VBG Base Excess Quality Measures Quality Measures VTE prophylaxis Assessment & Plan Assessment Current Active Medications: Generic Name Dose Route Start Last Admin Trade Name Freq PRN Reason Stop Dose Admin Acetaminophen 650 mg 12/22/24 17:09 12/23/24 10:19 Acetaminophen 325 Mg Tablet PO 01/21/25 17:08 650 mg Q6H PRN Administration Pain 1-3 and/or Fever >100.1 Albuterol/Ipratropium 3 ml 12/23/24 09:36 Albuterol/Ipratropium (Duoneb) Rt Ginny 3 Ml Nebu INH 01/22/25 07:44 Q8HRRT PRN wheezing Clotrimazole 0 gm 12/23/24 09:00 12/30/24 08:13 Clotrimazole Cr 1% 30 Gm Tube TOP 01/22/25 08:59 1 applicatio BID TRACY Administration Dextrose 25 ml 12/22/24 17:09 12/25/24 23:07 Dextrose 50%-Water Inj 50 Ml Syringe IV 01/21/25 17:08 25 ml Q15MIN PRN Administration BG 50-70 responsive npo pt Dextrose 50 ml 12/22/24 17:09 12/25/24 14:03 Dextrose 50%-Water Inj 50 Ml Syringe IV 01/21/25 17:08 50 ml Q15MIN PRN Administration BG <50 OR BG <70 & pt unresponsive Docusate Sodium 100 mg 12/28/24 09:15 12/30/24 08:37 Docusate Sod Liqd 100 Mg/10 Ml Udc PO 01/27/25 09:14 100 mg BID TRACY Administration Protocol Glucagon 1 mg 12/22/24 17:09 Glucagon Inj 1 Mg Vial IM Q15MIN PRN BG <70, and no IV access Heparin Sodium (Porcine) 7,500 unit 12/23/24 14:00 12/29/24 05:12 Heparin Sod Inj 5000 Unit/Ml Vial SC 01/06/25 13:59 7,500 unit On Hold: 12/29/24 10:17 Q8HR TRACY Administration Heparin Sodium (Porcine) 3,000 unit 12/27/24 12:35 12/29/24 16:57 Heparin Sod Inj 1000 Unit/Ml Vial 10 Ml INDWELLCAT 01/10/25 12:34 3,000 unit PRN PRN Administration DIALYSIS Hydrocortisone Sodium Succinate 50 mg 12/30/24 21:00 Hydrocortisone Sod Succ Inj 100 Mg 2 Ml Vial IV 12/31/24 00:00 BID TRACY Hydrocortisone Sodium Succinate 50 mg 12/31/24 08:00 Hydrocortisone Sod Succ Inj 100 Mg 2 Ml Vial IV 12/31/24 08:01 X1 ONE Norepinephrine Bitartrate 16 mg in 250 mls @ 7.369 mls/hr 12/23/24 07:12 12/30/24 07:38 Levophed In Ns 16mg/250ml IV 01/22/25 07:11 0 mcg/kg/min .Q24H PRN 0 mls/hr PER protocol Titration Protocol 0.05 MCG/KG/MIN Propofol 1,000 mg in 100 mls @ 4.722 mls/hr 12/24/24 16:53 12/30/24 07:38 Diprivan Ivpb IV 01/23/25 16:52 0 mcg/kg/min .[id number] PRN 0 mls/hr Per Protocol Titration Protocol 5 MCG/KG/MIN Vasopressin/Sodium Chloride 20 unit in 100 mls @ 9 mls/hr 12/24/24 17:09 Vasostrict/Ns Ivpb IV 01/23/25 17:08 .[id number] PRN PER PROTOCOL Protocol 0.03 UNIT/MIN Albumin Human 25 gm in 100 mls @ 100 mls/min 12/29/24 14:21 12/29/24 16:08 Albuminex 25% Ivpb IV 100 mls/min PRN PRN Administration DIALYSIS Fentanyl Citrate 2,500 mcg in 250 mls @ 20 mls/hr 12/29/24 17:41 12/30/24 08:38 Sublimaze Inj 2,500 Mcg/250 Ml Bag IV 01/03/25 17:40 100 mcg/hr .[id number] PRN 10 mls/hr PER PROTOCOL Titration Protocol 200 MCG/HR Ceftriaxone Sodium 2 gm/ 50 mls @ 100 mls/hr 12/30/24 09:23 Sodium Chloride IV 01/02/25 09:22 QDAY [facility] Protocol Ondansetron HCl 4 mg 12/22/24 17:09 Ondansetron Inj 2 Mg/Ml Inj 2 Ml IVP 01/21/25 17:08 Q6H PRN NAUSEA OR VOMITING Protocol Pantoprazole Sodium 40 mg 12/25/24 11:15 12/30/24 08:37 Pantoprazole Inj 40 Mg Vial IVP 01/24/25 11:14 40 mg QDAY [facility] Administration Pharmacy Consult 1 each 12/23/24 11:15 Pharmacy Renal Dose Adjustment 1 Ea XX 01/22/25 11:14 PRN PRN CONSULT Sennosides 1 tab 12/22/24 17:09 Senna Tablet PO 01/21/25 17:08 QDAY PRN constipation Protocol Plan 54-year-old female with past medical history of prior [place], insulin-dependent type 2 diabetes, lymphedema, lipedema, asthma, epilepsy, morbid obesity, nonambulatory status for 9 years, and wheelchair-bound status presenting to the ED on 12/22 with left lower extremity pain and oozing. BRAKE OPERATOR HELPER was called due to hypotension and, despite aggressive fluid resuscitation, patient remained persistently hypotensive. However, nursing staff was having a hard time to obtain accurate measurement due to body habitus. Repeat labs did revealed lactic acidosis which did not improved even after 5 L of fluids, Cheetah monitor was placed, patient found to be not fluid responsive. At this point decision was made to upgrade patient to ICU for pressor support. No acute events overnight. Patient was seen and assessed at bedside. Patient remains intubated and mechanically ventilated. Bedside BP has been 140 systolically, well above MAP goal, heart rate has been in 120-130s this morning, has been on low dose levophed overnight. Patient was taken off sedation, has been having more elevated blood pressures likely due to pain and has been able to shake her head yes in response to be asked if she is in pain. Patient was moving her limbs spontaneously this morning along with non-localized movements in response to pain. Patient did not respond verbally to pain nor did she open her eyes to pain. Patient's cellulitis and lymphedema appears similar to yesterday. Patient made more urine (215 ml) in the past 24 hours compared to previous days. Patient had 1 bowel movement. Patients wbc 42 (54), hgb 7.1 -> 8.9 after repeat h&h; abg continues to be favorable; blood cx x1 grew GPC in clusters. Patient's daughter and grandson were contacted in regards to goals of care discussion. Hoping to have grandson come to the hospital for goals of care discussion tomorrow with daughter on face-time as she is unable to attend to hospital in person and is also the medical decision maker for her mother. Neuro #Encephalopathy 2/2 sepsis Patient is sedated and intubated, GCS of 9T Cardiovascular #Distributive shock 2/2 toxic shock syndrome by Streptococcus pyogenes On arrival, patient presented with left leg pain and was admitted for sepsis 2/2 UTI and cellulitis. However, she developed hypotension refractory to aggressive fluid resuscitation with accompanying lactic acidosis and was admitted to the ICU for pressor support. She was started on Levophed through a peripheral IV but this led to extravasation and phentolamine had to be infused around the site. Patient's ongoing hypotension is now understood to be due to toxic shock syndrome (had been suspected early due to patient's concomitant drop in platelets and other labs suggesting some level of DIC) from the spread of S treptococcus pyogenes from her cellulitis to the bloodstream (confirmed by blood culture) Cardiogenic etiology less likely due to bedside echocardiogram showing seemingly adequate contractility without large pericardial effusion. Obstructive etiology less likely due to absence of pneumothorax or PE. Hypovolemic etiology less likely due to lack of BP improvement with aggressive fluid resuscitation in the setting of no active bleeding Importantly, clindamycin is unique as an antibiotic for treatment of TSS in that it binds to the 50S ribosomal subunit of bacteria and directly suppresses synthesis of exotoxins like Toxic Shock Syndrome Toxin-1 (TSST-1) and enterotoxins produced by Streptococcus pyogenes Dx: -12/22 BCx (04/01) grew zaman-sensitive Streptococcus pyogenes (Group A Streptococcus) -12/22 echocardiogram showed reduced EF of 45% -Patient has been off of pressor support since this morning, continue to monitor BP. -12/28 Blood cx / prelim grew GPC in clusters Rx: -s/p completion of IVIG administration x 3 [12/23-12/25] -Monitor hemodynamics and titrate pressor support as appropriate to maintain MAP > 65 using BP measured by arterial line -Stress dose IV hydrocortisone 50 mg q6HR for refractory distributive shock [12/24--] -Discontinued clindamycin 600 mg q8HR [12/22-12/30, dc'd due to concern for Drug induced Thrombocytopenia and no longer needed for TSS] and meropenem 1000 mg q8HR [12/24-12/30, dc'd due to possible Drug induced Thrombocytopenia] -Started on ceftriaxone 2 g qday for the last 3 days of the 10 antibiotic regimen. -Follow up final blood cultures #Atrial fibrillation w/ RVR s/p amiodarone drip Patient was having atrial fibrillation w/ RVR throughout her stint in the ICU. Converted to sinus rhythm, s/p amiodarone drip and is not currently experiencing ongoing atrial fibrilation #HFrEF - EF [40-45%] Dx: -12/22 echocardiogram showed reduced EF of 45% Rx: -Further evaluation in the outpatient setting Respiratory #Acute respiratory failure with hypoxia requiring intubation and mechanical ventilation 2/2 severe metabolic acidosis, resolving Patient's daughter and grandson were contacted in regards to goals of care discussion. Hoping to have grandson come to the hospital for goals of care discussion tomorrow with daughter on face-time as she is unable to attend to hospital in person and is also the medical decision maker for her mother. Patient has been on ventilator for 7 days as of 12/30, planning to discuss with family regarding that. Dx: -ABG today was favorable Rx: -Continue intubation and mechanical ventilation (not fit for SBT) -Continue IV Protonix 40 mg qD for GI prophylaxis due to patient's intubated status RRx: -Follow up on repeat ABG and adjust ventilator settings accordingly Renal #Acute renal failure likely 2/2 shock and ATN Creatinine normalized to near baseline However, urine output has been low with mild improvement 12/30 suggesting YOU 2/2 ATN 2/2 renal hypoperfusion Dx: -Patient's UOP last 24 hrs was 215 cc suggesting that renal function continues to be impaired Rx: -Dialysis as needed per Nephrology recommendations, last dialysis 12/29, plan for dialysis today. -Strict I's & O's -Avoid nephrotoxins #Electrolyte derangements #Hypercalcemia #Hypophosphatemia Today, corrected calcium 10.5 -> 9.5, phosphorus 2.5 -> 2.1 (as of 12/28) Rx: -Monitor CMP, correct electrolytes as appropriate #Lactic acidosis 2/2 toxic shock syndrome (resolved) #Anion gap metabolic acidosis (resolved) Patient presented with significant lactic acidosis likely 2/2 toxic shock syndrome and YOU that peaked at 10.0 despite receiving broad-coverage antibiotics, which raised concerns for ongoing necrosis or compartment syndrome occurring occultly in patient's extremely lymphedematous legs (resulting in efforts to transfer her for radical surgical intervention at a facility that could offer more specialized care) However, it has now been downtrending and was most recently seen at 2.5 (in the setting of ongoing CRRT), signaling that any dangerous cause of ongoing lactic acidosis (compartment syndrome, necrosis) seems to have slowed or stopped Dx: -LA 2.5 (ongoing CRRT) -12/26 Bilateral lower extremity venous Doppler ultrasound ruled out cerulea dolens 2/2 extensive DVT -12/26 Bedside arterial duplex of dorsalis pedis confirmed blood flow to both feet Rx: -General Surgery (Dr. Hines) consulted regarding possible surgical decompression/debridement options as well as opinions on the viability of transferring patient to another facility for [id number] -Transfer nurse contacted to initiate proceedings necessary to possible transfer (however, due to halt of cellulitic spread and resolving lactic acidosis, pursuit of transfer has been deferred for now) -Treat underlying cause (toxic shock syndrome) GI #Transaminitis, resolving In the setting of ongoing toxic shock syndrome, down trending #Constipation, resolving Patient has not had a BM for about 3 days now Rx: -PO Colace 100 mg BID scheduled -PO lactulose 40 gm x 1 RRx: -After starting bowel regimen today, patient had a large BM Endocrine #T2DM Reported in previous charts No hemoglobin A1c recorded in [facility] medical records actually meeting criteria for T2DM Rx: -Tube feeds adjusted 12/30 for goal of 60 mL / hr and 30 mL/hr flushes if no IVF -Blood sugar check q4HR Heme #Thrombocytopenia Concern for drug induced vs reactive to acute illness Dx: -PLT 13 in AM Rx: -Continue to monitor CBC and for signs of active bleeding -Discontinued meropenem and clindamycin, started ceftriaxone RRx: -Thrombocytopenia appears stable for now #Coagulopathy 2/2 toxic shock syndrome - possible DIC, resolving Patient initially had elevated INR, elevated D-Dimer, and elevated fibrinogen early in her ICU admission which suggested the presence of low-level DIC Dx: -Elevated INR, elevated D-Dimer, and elevated fibrinogen suggestive of low level DIC Rx: -Consider trending coagulation panels RRx: -PT, APTT, fibrinogen, and D-dimer remain elevated at this time but 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) pending (contacted lab 12/30, confirmed it is still pending) #Leukocytosis #Leukemoid reaction Patient's WBC continue to be elevated In the setting of ongoing toxic shock syndrome, infection, and steroid medications However, has continued to uptrend while on antibiotics for treatment of toxic shock syndrome Currently suspect this is a benign leukemoid reaction in the setting of acute illness DDx: occult infection due to bacterial (Clostridioides difficile from clindamycin use) or commensal fungal overgrowth Dx: -WBC 42.5 (54 previous day) -Patient remains afebrile -12/28 Blood cx 04/01 prelim grew GPC in clusters Rx: -Follow up final blood cultures ID #Cellulitis #Streptococcus pyogenes bacteremia #Chronic bilateral lower extremity lymphedema Likely source of sepsis and precipitating toxic shock syndrome As mentioned earlier in the Cardiovascular section, clindamycin is unique as an antibiotic for treatment of TSS in that it binds to the 50S ribosomal subunit of bacteria and directly suppresses synthesis of exotoxins like Toxic Shock Syndrome Toxin-1 (TSST-1) and enterotoxins produced by Streptococcus pyogenes Timeline of antibiotic regimen detailed below: 1. IV vancomycin dosed by pharmacy [12/22-12/25, discontinued due to MRSA(-)] 2. IV clindamycin 600 mg q8HR [12/22-12/30, dc'd due to concern for Drug induced Thrombocytopenia and no longer needed for TSS] 3. IV cefepime 2 gm q12HR [12/22-12/24, discontinued after TSS became favored diagnosis] 4. IV meropenem 1000 mg q8HR [12/24-12/30, dc'd due to possible Drug induced Thrombocytopenia] 5. IV Ceftriaxone 2 g qday for 3 days - Final Day will be 01/02/2025 (will have total ABX coverage for 10 straight days after completion) Dx: -12/22 BCx (04/01) grew zaman-sensitive Streptococcus pyogenes (Group A Streptococcus) Rx: -Current active antibiotic regimen: Started IV Ceftriaxone 2 g qday for 3 days - Final Day will be 01/02/2025 (will have total ABX coverage for 10 straight days after completion) -Patient is on broad-spectrum coverage but WBC continues to uptrend (possibly leukemoid reaction) Disposition: Patient continues to meet criteria for ongoing ICU management due to continued need for pressors/intubation. DVT prophylaxis: Heparin 7500 q8HR GI prophylaxis: IV Protonix 40 mg qD Diet: Tube Feeds @ 60 mL / hr with 30 cc/hr water flushes [place]: Present Lines: Peripheral IV, Central IV, arterial line Antibiotics: IV Ceftriaxone 2 g qday CODE STATUS: FULL (consider recommending DNR/DNI to Decision Maker, [facility] discussion 12/31) Patient plan of care was discussed with the attending physician, Dr. Donovan & senior resident Dr. Manju CALELJAS PGY-1
[2024-12-30] MEDS: cefTRIAXone 2 GM in SODIUM CHLORIDE 0.9% (Popper) 50 ML IV (11:02)
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
--- NOTE | 2024-12-30 11:47 | PC.SS ---
Follow up note: Attempting to wean off ventilator.
[2024-12-30] MEDS: PROPOFOL 1,000 MG IVPB 1,000 MG/100 ML VIAL 18.888 MG IV (14:51)
[2024-12-30] MEDS: ALBUMIN HUMAN-KJDA 25% IVPB 25 GM/100 ML BTL IV (17:53)
[2024-12-30] MEDS: HEPARIN SOD INJ 1000 UNIT/ML VIAL 10 ML 3000 UNIT INDWELLCAT (19:00)
[2024-12-30] MEDS: PROPOFOL 1,000 MG IVPB 1,000 MG/100 ML VIAL 14.166 MG IV (21:37)
[2024-12-31] VITALS (78 sets, daily range): BP systolic 93–195; BP diastolic 55–130; PULSE 131–146; RESP 15–28; TEMP 36–36.9; O2SAT 95–100; BMI 65.3
[2024-12-31 04:43] LABS: Allen Test Not Performed; Base Excess 2 (-3-3); HCO3 27 mEq/L (20-26); Inspired Oxygen, FIO2 25 %; O2 Saturation 97 % (91-98); PCO2 45 mmHg (32.0-48.0); PO2 83 mmHg (83-108); pH, Arterial 7.39 (7.35-7.45)
[2024-12-31] MEDS: PROPOFOL 1,000 MG IVPB 1,000 MG/100 ML VIAL 14.166 MG IV (05:30)
[2024-12-31 06:04] LABS: Basophils # (Auto) 0.1 Thou/mm3 (0.0-0.2); Basophils % (Auto) 0 % (0-2.5); Eosinophils # (Auto) 0.0 Thou/mm3 (0.0-0.5); Eosinophils % (Auto) 0 % (0-10); Hematocrit 23.9 % (36.0-46.0); Immature Granulocytes Auto 8.82 Thou/mm3 (0.00-0.00); Lymphocytes # (Auto) 3.8 Thou/mm3 (1.0-4.8); Lymphocytes % (Auto) 7 % (10-50); Mean Corpuscular HGB Conc 33.1 g/dl (31.0-37.0); Mean Corpuscular Hemoglobin 25.4 pg (25.0-35.0); Mean Corpuscular Volume 77 fL (80-100); Monocytes # (Auto) 1.9 Thou/mm3 (0.0-0.8); Monocytes % (Auto) 4 % (0-12); Neutrophils # (Auto) 38.2 Thou/mm3 (1.8-7.7); Neutrophils % (Auto) 72 % (37-80); Nucleated Red Blood Cell # 1.11 Thou/mm3 (0.00-0.00); Nucleated Red Blood Cell % 2 /100 WBC (0); RDW Standard Deviation 48.6 fL (36.4-46.3); Red Blood Count 3.11 Miln/mm3 (4.00-5.20)
[2024-12-31] MEDS: fentaNYL 2,500 MCG/250 ML BAG 2,500 MCG/250 ML BAG 25 MCG IV (06:05)
[2024-12-31 06:06] LABS: Hemoglobin 7.9 g/dL (12.0-16.0); Platelet Count 36 Thou/mm3 (140-440); White Blood Count 52.9 Thou/mm3 (3.6-11.0)
[2024-12-31 06:19] LABS: Alanine Aminotransferase 38 U/L (10-49); Albumin, Serum 3.1 gm/dL (3.5-5.0); Albumin/Globulin Ratio 0.9 (1.2-2.2); Alkaline Phosphatase 287 U/L (46-116); Anion Gap 10 (7-16); Aspartate Amino Transferase 34 U/L (0-34); BUN/Creatinine Ratio 37 Ratio (12-20); Bilirubin,Total 1.1 mg/dL (0.3-1.2); Blood Urea Nitrogen 52 mg/dL (9-23); Calcium 8.8 mg/dL (8.3-10.6); Calcium (Corrected) 9.5 mg/dL (8.5-10.1); Carbon Dioxide 26.9 mMol/L (20.0-31.0); Chloride 99 mMol/L (98-107); Creatinine (Component) 1.4 mg/dL (0.6-1.3); Estimated Creatinine Clearance 66.2 mL/min (>60); Globulin 3.4 gm/dL (2.3-3.5); Glucose 256 mg/dL (74-106); Magnesium 2.2 mg/dL (1.6-2.6); Osmolality,Calculated 294 (275-295); Phosphorous 3.7 mg/dL (2.4-5.1); Potassium 4.0 mMol/L (3.4-5.1); Sodium 136 mMol/L (136-145); Total Protein 6.5 gm/dL (5.7-8.2); eGFR 44 See Note
[2024-12-31] MEDS: DOCUSATE SOD LIQD 100 MG/10 ML UDC PO ×2 (07:59→20:22)
[2024-12-31] MEDS: cefTRIAXone 2 GM in SODIUM CHLORIDE 0.9% (Popper) 50 ML IV (08:00)
[2024-12-31] MEDS: HYDROCORTISONE SOD SUCC INJ 100 MG 2 ML VIAL 50 MG IV (08:00)
[2024-12-31] MEDS: DILTIAZEM INJ 5 MG/ML VIAL 5 ML 10 MG IV (08:05)
--- NOTE | 2024-12-31 08:06 | EKG_ITS ---
[facility] Test Date: 2024-12-31 Pat Name: ROSELINE MCGUIRE Department: Room: S257A Gender: Female Parent Trainer: STACEY : [id number] Requested By: Obdulia Evans Order Number: [id number] Reading MD: Obdulia Evans Measurements Intervals [place] Rate: 138 P: RI: QRS: -21 QRSD: 155 T: -76 QT: 358 QTc: 544 Interpretive Statements ATRIAL FLUTTER/TACHYCARDIA WITH RAPID VENTRICULAR RESPONSE BORDERLINE LEFT AXIS DEVIATION RIGHT BUNDLE BRANCH BLOCK MODERATE T-WAVE ABNORMALITY, CONSIDER INFERIOR ISCHEMIA Compared to ECG 12/25/2024 23:29:46 Right bundle-branch block now present T-wave abnormality now present Possible ischemia now present Atrial fibrillation no longer present Intraventricular conduction delay no longer present /store/S0/[id number]
[2024-12-31] MEDS: CLOTRIMAZOLE CR 1% 30 GM TUBE TOP ×2 (08:07→21:30)
--- NOTE | 2024-12-31 08:10 | ESPR_ITS ---
Documentation for date of: 12/31/24 Subjective Subjective Interval history: Patient seen and assessed at bedside. Patient is off pressors but continues to be sedated. Weaning sedation today, plan to possibly extubate per ICU team. Hypertensive with systolics in the 150s overnight. HR 130s overnight, on telemetry appeared to be in sinus tachycardia, concerned for SVT as P waves were difficult to visualize. Diltiazem 10 mg x1 given by ICU team. Ordered EKG stat, showed afib with RVR. Recommend restarting amiodarone drip. WBC increased to 52.9. Hgb downtrended to 7.9. Potassium 4.0, magnesium 2.2, creatinine 1.4. Exam Vital Signs Temp Pulse Resp BP Pulse Ox O2 Del Method O2 Flow Rate 97.4 F 137 H 18 158/106 H 99 Mechanical Ventilation 30 12/31/24 04:00 12/31/24 08:05 12/30/24 18:10 12/31/24 08:05 12/31/24 07:00 12/29/24 16:00 12/28/24 17:00 FiO2 12/31/24 06:07 Narrative Exam GENERAL: Patient is intubated and mechanically ventilated. Remains on sedation. HEENT: NC/AT, trachea appears midline, androgenic hair distribution on the chin CARDIOVASCULAR: Irregular rate and rhythm, tachycardic. PULMONARY: symmetric chest rise, on vent, decreased air entry bilaterally due to body habitus ABDOMINAL: soft, non-distended, bowel sounds present EXTREMITIES: Severe left leg swelling with severe hyperkeratotic changes. Left leg swelling with severe hyperkeratotic changes bilaterally. Majority of bullae have ruptured, wounds have been dressed. Cellulitis appears to be improving, withdrawing from marked borders. NEURO: limited due to patient mental status and intubation Objective Labs 12/31/24 05:40 12/31/24 05:40 Labs: Laboratory Results - last 24 hr 12/29/24 12/30/24 12/31/24 10:16 07:45 04:20 WBC RBC Hgb 8.9 L D Hct 27.0 L MCV MCH MCHC RDW Std Deviation Plt Count Neut % (Auto) Lymph % (Auto) [place] % (Auto) Eos % (Auto) Baso % (Auto) Neut # (Auto) Lymph # (Auto) [place] # (Auto) Eos # (Auto) Baso # (Auto) Immature Gran # (Auto) Absolute Nucleated RBC Immature Gran % Nucleated RBC % Puncture Site Not Performed. ABG pH 7.39 ABG pCO2 45 ABG pO2 83 D ABG HCO3 27 H ABG O2 Saturation 97 ABG Base Excess 2 FiO2 25 Sodium Potassium Chloride Carbon Dioxide Anion Gap BUN Creatinine Estim Creat Clear Calc eGFR BUN/Creatinine Ratio Glucose Calculated Osmolality Calcium Corrected Calcium Phosphorus Magnesium Total Bilirubin AST ALT Alkaline Phosphatase Total Protein Albumin Globulin Albumin/Globulin Ratio Blood Type Cancelled Rho(D) Type Cancelled Antibody Screen Cancelled Crossmatch See Detail Blood Bank Wristband ID Cancelled 12/31/24 05:40 WBC 52.9 H* D RBC 3.11 L Hgb 7.9 L Hct 23.9 L MCV 77 L MCH 25.4 MCHC 33.1 RDW Std Deviation 48.6 H Plt Count 36 L D Neut % (Auto) 72 Lymph % (Auto) 7 L [place] % (Auto) 4 Eos % (Auto) 0 Baso % (Auto) 0 Neut # (Auto) 38.2 H Lymph # (Auto) 3.8 [place] # (Auto) 1.9 H Eos # (Auto) 0.0 Baso # (Auto) 0.1 Immature Gran # (Auto) 8.82 H Absolute Nucleated RBC 1.11 H Immature Gran % 17 H Nucleated RBC % 2 H Puncture Site ABG pH ABG pCO2 ABG pO2 ABG HCO3 ABG O2 Saturation ABG Base Excess FiO2 Sodium 136 Potassium 4.0 Chloride 99 Carbon Dioxide 26.9 Anion Gap 10 BUN 52 H Creatinine 1.4 H Estim Creat Clear Calc 66.2 eGFR 44 L BUN/Creatinine Ratio 37 H Glucose 256 H Calculated Osmolality 294 Calcium 8.8 Corrected Calcium 9.5 Phosphorus 3.7 Magnesium 2.2 Total Bilirubin 1.1 AST 34 ALT 38 Alkaline Phosphatase 287 H D Total Protein 6.5 Albumin 3.1 L D Globulin 3.4 Albumin/Globulin Ratio 0.9 L Blood Type Rho(D) Type Antibody Screen Crossmatch Blood Bank Wristband ID ABG Interpretation ABG results: 12/22/24 12/22/24 12/23/24 16:49 23:40 13:05 ABG pH 7.39 7.29 L D ABG pCO2 33 37 ABG pO2 60 L 73 L ABG HCO3 20 18 L ABG O2 Saturation 92 94 ABG Base Excess -5 L -8 L VBG pH 7.35 VBG pCO2 37 VBG pO2 27 VBG Base Excess -5 L 12/24/24 12/24/24 12/24/24 08:54 17:12 17:19 ABG pH 7.25 L 7.16 L* ABG pCO2 34 36 ABG pO2 166 H D 127 H D ABG HCO3 15 L 13 L ABG O2 Saturation 100 H 99 H ABG Base Excess -11 L -15 L VBG pH 7.12 L VBG pCO2 42 VBG pO2 44 VBG Base Excess -15 L 12/24/24 12/24/24 12/25/24 19:45 22:40 04:47 ABG pH 7.10 L* 7.21 L D 7.36 D ABG pCO2 50 H D 38 D 37 ABG pO2 249 H D 249 H 191 H D ABG HCO3 15 L 15 L 21 ABG O2 Saturation 100 H 100 H 100 H ABG Base Excess -14 L -12 L -4 L VBG pH VBG pCO2 VBG pO2 VBG Base Excess 12/25/24 12/25/24 12/26/24 15:59 19:55 04:10 ABG pH 7.41 7.41 7.36 ABG pCO2 37 39 37 ABG pO2 128 H D 123 H 99 D ABG HCO3 23 24 21 ABG O2 Saturation 100 H 99 H 98 ABG Base Excess -1 0 -4 L VBG pH VBG pCO2 VBG pO2 VBG Base Excess 12/27/24 12/27/24 12/28/24 04:08 09:45 04:14 ABG pH 7.47 H D 7.42 7.39 ABG pCO2 36 41 45 ABG pO2 82 L 97 114 H ABG HCO3 26 27 H 27 H ABG O2 Saturation 98 99 H 99 H ABG Base Excess 2 2 2 VBG pH VBG pCO2 VBG pO2 VBG Base Excess 12/29/24 12/30/24 12/31/24 04:30 04:50 04:20 ABG pH 7.38 7.37 7.39 ABG pCO2 46 47 45 ABG pO2 109 H 121 H 83 D ABG HCO3 27 H 27 H 27 H ABG O2 Saturation 99 H 99 H 97 ABG Base Excess 1 1 2 VBG pH VBG pCO2 VBG pO2 VBG Base Excess Quality Measures Quality Measures VTE prophylaxis Assessment & Plan Assessment Current Active Medications: Generic Name Dose Route Start Last Admin Trade Name Brigida PRN Reason Stop Dose Admin Acetaminophen 650 mg 12/22/24 17:09 12/23/24 10:19 Acetaminophen 325 Mg Tablet PO 01/21/25 17:08 650 mg Q6H PRN Administration Pain 1-3 and/or Fever >100.1 Albuterol/Ipratropium 3 ml 12/23/24 09:36 Albuterol/Ipratropium (Duoneb) Rt Ginny 3 Ml Nebu INH 01/22/25 07:44 Q8HRRT PRN wheezing Clotrimazole 0 gm 12/23/24 09:00 12/31/24 08:07 Clotrimazole Cr 1% 30 Gm Tube TOP 01/22/25 08:59 1 applicatio BID TRACY Administration Dextrose 25 ml 12/22/24 17:09 12/25/24 23:07 Dextrose 50%-Water Inj 50 Ml Syringe IV 01/21/25 17:08 25 ml Q15MIN PRN Administration BG 50-70 responsive npo pt Dextrose 50 ml 12/22/24 17:09 12/25/24 14:03 Dextrose 50%-Water Inj 50 Ml Syringe IV 01/21/25 17:08 50 ml Q15MIN PRN Administration BG <50 OR BG <70 & pt unresponsive Docusate Sodium 100 mg 12/28/24 09:15 12/31/24 07:59 Docusate Sod Liqd 100 Mg/10 Ml Udc PO 01/27/25 09:14 100 mg BID TRACY Administration Protocol Glucagon 1 mg 12/22/24 17:09 Glucagon Inj 1 Mg Vial IM Q15MIN PRN BG <70, and no IV access Heparin Sodium (Porcine) 7,500 unit 12/23/24 14:00 12/29/24 05:12 Heparin Sod Inj 5000 Unit/Ml Vial SC 01/06/25 13:59 7,500 unit On Hold: 12/29/24 10:17 Q8HR TRACY Administration Heparin Sodium (Porcine) 3,000 unit 12/27/24 12:35 12/30/24 19:00 Heparin Sod Inj 1000 Unit/Ml Vial 10 Ml INDWELLCAT 01/10/25 12:34 3,000 unit PRN PRN Administration DIALYSIS Hydromorphone HCl 2 mg 12/31/24 08:15 Hydromorphone Hcl 2 Mg Tablet GT 01/05/25 08:14 Q8HR TRACY Norepinephrine Bitartrate 16 mg in 250 mls @ 7.369 mls/hr 12/23/24 07:12 12/30/24 07:38 Levophed In Ns 16mg/250ml IV 01/22/25 07:11 0 mcg/kg/min .Q24H PRN 0 mls/hr PER protocol Titration Protocol 0.05 MCG/KG/MIN Propofol 1,000 mg in 100 mls @ 4.722 mls/hr 12/24/24 16:53 12/31/24 06:00 Diprivan Ivpb IV 01/23/25 16:52 15 mcg/kg/min .[id number] PRN 14.166 mls/hr Per Protocol Titration Protocol 5 MCG/KG/MIN Vasopressin/Sodium Chloride 20 unit in 100 mls @ 9 mls/hr 12/24/24 17:09 Vasostrict/Ns Ivpb IV 01/23/25 17:08 .[id number] PRN PER PROTOCOL Protocol 0.03 UNIT/MIN Fentanyl Citrate 2,500 mcg in 250 mls @ 20 mls/hr 12/29/24 17:41 12/31/24 06:05 Sublimaze Inj 2,500 Mcg/250 Ml Bag IV 01/03/25 17:40 300 mcg/hr .[id number] PRN 30 mls/hr PER PROTOCOL Administration Protocol 200 MCG/HR Ceftriaxone Sodium 2 gm/ 50 mls @ 100 mls/hr 12/30/24 09:23 12/31/24 08:00 Sodium Chloride IV 01/02/25 09:22 100 mls/hr QDAY TRACY Administration Protocol Ondansetron HCl 4 mg 12/22/24 17:09 Ondansetron Inj 2 Mg/Ml Inj 2 Ml IVP 01/21/25 17:08 Q6H PRN NAUSEA OR VOMITING Protocol Pantoprazole Sodium 40 mg 12/25/24 11:15 12/31/24 08:01 Pantoprazole Inj 40 Mg Vial IVP 01/24/25 11:14 40 mg QDAY TRACY Administration Pharmacy Consult 1 each 12/23/24 11:15 Pharmacy Renal Dose Adjustment 1 Ea XX 01/22/25 11:14 PRN PRN CONSULT Sennosides 1 tab 12/22/24 17:09 Senna Tablet PO 01/21/25 17:08 QDAY PRN constipation Protocol Plan Patient is a 54-year-old female with past medical history of IDDM2, bilateral lower limb lymphedema, lipedema, asthma, epilepsy, morbid obesity, wheelchair- bound for 9 years, was brought to the ED on 12/22/24 for left lower extremity pain and clear cirrhosis fluid oozing. Patient was admitted to the ICU for distributive shock. Cardiology team was consulted because of new onset A-fib with RVR and newly diagnosed CHF. #Newly diagnosed HFrEF (40-45%, 11/2024) #New onset A-fib with RVR likely induced by shock state #Streptococcus pyogenes bacteremia / LLE cellulitis Patient presented with sepsis secondary to left leg cellulitis, her condition worsened to distributive shock. During her stay she developed A-fib with RVR, with no known hx of afib, we started the patient on amiodarone drip. Even though her body habitus echo was done and showed ejection fraction of 40 to 45%. With normal RV function. BNP was 204 which most likely skewed by patient obesity. Troponin was negative. 12/22/24 Echo showed Over all poor images due to body habitus and technically difficult study. Normal left ventricular size and function.Stage I diastolic dysfunction. Estimated ejection fraction is 40-45%. Normal right ventricular size and function. RVSP 39 mm Hg with RAP 8. Mild pulmonary HTN Trace MR and Mild TR. TDS due to patient morbid and laying on supine view, couldn't move. (patient had open wounds under breast) 12/25/2024 patient was started on CRRT due to worsening lactic acidosis and kidney function, blood culture growing Streptococcus pyogenes. 12/27/2024, Amidrine drip was stopped by the primary team as the patient converted to sinus rhythm. Patient was having tachycardia heart rate of 113 however it was regular sinus. Plan ? Ordered EKG - patient back to atrial flutter with RVR with 2: 1 AV block - Recommend resuming amiodarone drip to prevent patient from returning to A-fib with RVR or atrial flutter ? Due to patient condition no invasive cardiac procedure will be done at this time ? Strict in and out ? Keep potassium and magnesium above 4 and 2 respectively within normal range ? Will start the patient on GDMT as soon as her general condition improved #Distributive shock most likely secondary to sepsis #Sepsis secondary to left leg cellulitis #Toxic shock syndrome #Lower extremity lymphedema Plan ? Primary team continuing Clindamycin, meropenem, patient was also given IgG immunoglobulin ? Patient on norepinephrine drip and vasopressin for distributive shock #History of seizure disorder Patient on antiseizure meds #Concern of DIC #History of COPD Supplemental oxygen, BiPAP as needed, DuoNebs #Elevated bilirubin, elevated AST, hypoalbuminemia Secondary to toxic shock syndrome versus septic shock Follow primary team recommendations #Lactic acidosis improving s/p CRRT #YOU #Non-anion gap metabolic acidosis Thank you for your consultation, please do not hesitate to reach out if you have any question or concern Patient plan of care was discussed with the attending physician, Dr. Chapa. Obdulia Evans, PGY-1 Attending Provider Attestation/Addendum I have personally seen and examined the patient separately on the above date of service and discussed the plan of care with the resident. I reviewed the resident Dr. Obdulia Evans consultation progress note and agree with the resident findings and plan in the note above and have also edited the documentation to reflect my findings and plan. Alex Chapa M.D. Interventional Cardiology
[2024-12-31] MEDS: HYDROMORPHONE HCL 2 MG TABLET GT (08:19)
[2024-12-31] MEDS: METOPROLOL TARTRATE INJ 1 MG/ML AMP 5 ML 2 MG IVP (09:04)
[2024-12-31] MEDS: HYDROmorphone INJ 2 MG/ML VIAL 1 MG IVP (09:05)
--- NOTE | 2024-12-31 09:19 | ESPR_ITS ---
<Statement entered by Jamar Schneider MD - 12/31/24 16:06> Patient seen and examined at bedside. I discussed and supervised with the physician internist physician who took care of this patient. I personally saw and examined the patient. I agree with most of the assessment and plan. Patient had increasing urine production, approximately 40 cc/h overnight. Bumex was given for additional diuresis, anticipating recovery of kidney function. Patient received dialysis today with goal of 3 L fluid removal. Continue to titrate propofol and fentanyl as tolerated by patient, without goal patient has been started on gabapentin and oxycodone p.o. (via OG tube) with as needed Dilaudid. Patient tachycardic with heart rate persistently 130?140, did not respond to IV push Lopressor or Cardizem. EKG showed A-fib/a flutter with RVR, patient started on amiodarone infusion protocol. No progression of lower extremity cellulitis. Started on long-acting insulin 10 units due to hyperglycemia, suspect due to steroid use. Patient received last dose of steroids this morning. Plan of care discussed with attending Dr. Donovan. Jamar Schneider MD PGY-2 Documentation for date of: 12/31/24 Subjective Subjective Interval history: 54-year-old female with past medical history of prior [place] (questionable), lymphedema, lipedema, asthma, epilepsy, morbid obesity, nonambulatory for 9 years, wheelchair-bound presenting to the ED on 12/22 with left lower extremity pain and oozing. Patient states that about 3 weeks ago she slammed her left leg on a brick wall and ever since that time her left leg has progressively worsened and started oozing. Patient lives at home and is largely immobile and requires ship's carpenter in the form of her grandson who takes care of her. Patient has not been seen by outpatient wound care as she says her motorized wheelchair has been broken. Patient also states that she has had a heart attack in the past but has never followed up with cardiology. Patient also has asthma but she denies having any shortness of breath at this time, uses albuterol twice a week. Medical history: As stated above Surgical history: Denies Allergies: Aspirin, codeine, Keppra, morphine, penicillin causes dyspnea Medications: Pending med rec Family history: Patient's mother and grandmother from breast cancer, denies having any family history of heart attack or stroke Social history: Patient lives at home, grandson ship's carpenter, denies any alcohol, tobacco or illicit drug use ROS: All 12 systems assessed and the patient denies unless otherwise stated in HPI In the ED, patient presented mildly hypotensive 92/56, heart rate of 92, respiratory rate of 18, afebrile satting 96 on room air. Pertinent lab findings include WBC of 5.8, potassium 3.1, creatinine 1.8, eGFR of 33, lactic acid initially 7.1 uptrending to 8.0, T. bili of 2.2, AST 21, ALT 14, BNP of 385, Pro-Umberto of 87. Urinalysis shows signs of urinary tract infection. Venous Doppler study is negative for DVT, chest x-ray does not show any active disease and tibia/fibula x-ray shows no acute fracture. Patient was admitted to floors for sepsis secondary to cellulitis. On 12/23, INNER LAYER SCRUBBER TENDER was called due to hypotension, despite aggressive fluid resuscitation patient was remained persistent hypotensive, however nursing staff was having a hard time to obtain accurate measurement due to body habitus. Repeat labs did revealed lactic acidosis which did not improved even after 5 L of fluids, Cheetah monitor was placed, patient found to be not fluid responsive. At this point decision was made to upgrade patient to ICU for pressor support. *Refer to previous notes for Interval History from 12/23-12/28* 12/29/2024: Patient seen and examined at bedside. Patient is occasionally moving/wincing from pain, no eye or voice response to pain, GCS of 6t. Patient was on and off levophed this morning, currently off of levophed now. Patient vitals this morning were BP 146/86, HR 120, Saturating well on AC/MV FIO2 of 30, PEEP of 12. Patient urine output of 34 ml for last 24 hours. Net I/O for hospitalization is +18 liters. 2 BM last 24 hours. 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 ABG pH 7.38 this morning. 12/30/2024: No acute events overnight. Patient was seen and assessed at bedside. Patient remains intubated and mechanically ventilated. Bedside BP has been 140 systolically, well above MAP goal, heart rate has been in 120-130s this morning, has been on low dose levophed overnight. Patient was taken off sedation, has been having more elevated blood pressures likely due to pain and has been able to shake her head yes in response to be asked if she is in pain. Patient was moving her limbs spontaneously this morning along with non-localized movements in response to pain. Patient did not respond verbally to pain nor did she open her eyes to pain. Patient's cellulitis and lymphedema appears similar to yesterday. Patient made more urine (215 ml) in the past 24 hours compared to previous days. Patient had 1 bowel movement. Patients wbc 42 (54), hgb 7.1 -> 8.9 after repeat h&h; abg continues to be favorable; blood cx x1 grew GPC in clusters. Patient's daughter and grandson were contacted in regards to goals of care discussion. 12/31/2024: No acute events overnight. Patient was seen and assessed at bedside. Patient remains sedated and intubated with mechanically ventilated. Patient has had MAP > 100 throughout the morning with HR being consistently elevated at 130s while being off of pressors. Patient continues to saturate well with mechanical ventilation on fio2 .25. Patient made more urine for this most recent 24 hrs at ~500 ml with similar dark brown/red color. Had 1 BM last 24 hours. Sedation was transiently decreased as oxycodone was started/scheduled. EKG done this morning showing atrial flutter with 1:1 conduction. Patient was given diltiazem 10 g IV x1 and metoprolol tartrate 2 mg IV x1 without decrease in heart rate. Patient was then started amiodarone push/drip a few hours after that. Patient's grandson was contacted again, asked to come in person to hospital to discuss goals of care Exam Vital Signs Temp Pulse Resp BP Pulse Ox O2 Del Method O2 Flow Rate 97.4 F 138 H 18 160/96 H 99 Mechanical Ventilation 30 12/31/24 04:00 12/31/24 09:04 12/30/24 18:10 12/31/24 09:04 12/31/24 07:00 12/29/24 16:00 12/28/24 17:00 FiO2 25 12/31/24 06:07 Narrative Exam General: Morbidly obese, Intubated, Sedated Skin: Refer to extremities; Mild pressure injuries on back, upper buttock HENT: NCAT, EOMI, not icteric. External ears normal. No rhinorrhea. Moist mucous membranes Cardiovascular: Tachycardic, regular rhythm, no murmur, +S1/S2 (difficult to assess with body habitus) Respiratory: Lungs CTAB (difficult to assess with body habitus) GI: Soft, nontender, non-distended. No guarding or rebound tenderness Extremities: BL LE skin Lower extremity erythema extending up the lateral left thigh and reaches up towards the left side of patient's hip and torso as well as bullae bilaterally; cyanotic/ischemic appearance of bilateral toes (worse on the left foot). Necrotic lesions of the toes on left foot. Multiple areas of induration and denuded skin of bilateral lower extremities anteriorly. Mottling noted of right lower extremity. Posterior left thigh appears purple and engorged. Discolored lesion near right buttock. R sided popliteal pulse able to be appreciated by handheld Doppler; L sided LE pulses unable to be palpated or appreciated by handheld doppler although L LE is warm and red in color. Dusky discoloration of right fingers to DIP, dusky discoloration noted of left pointer finger and middle finger. Hands feel cold and puffy. Hyperkeratinization and lichenification of both feet. - negligible changes overall to physical exam compared to previous day. Neuro: Intubated, Sedated Psychiatric: Not examined (Intubated, Sedated) Objective Labs 01/01/25 04:40 01/01/25 04:40 Labs: Laboratory Results - last 24 hr 12/31/24 12/31/24 04:20 05:40 WBC 52.9 H* D RBC 3.11 L Hgb 7.9 L Hct 23.9 L MCV 77 L MCH 25.4 MCHC 33.1 RDW Std Deviation 48.6 H Plt Count 36 L D Neut % (Auto) 72 Lymph % (Auto) 7 L [place] % (Auto) 4 Eos % (Auto) 0 Baso % (Auto) 0 Neut # (Auto) 38.2 H Lymph # (Auto) 3.8 [place] # (Auto) 1.9 H Eos # (Auto) 0.0 Baso # (Auto) 0.1 Immature Gran # (Auto) 8.82 H Absolute Nucleated RBC 1.11 H Immature Gran % 17 H Nucleated RBC % 2 H Puncture Site Not Performed. ABG pH 7.39 ABG pCO2 45 ABG pO2 83 D ABG HCO3 27 H ABG O2 Saturation 97 ABG Base Excess 2 FiO2 25 Sodium 136 Potassium 4.0 Chloride 99 Carbon Dioxide 26.9 Anion Gap 10 BUN 52 H Creatinine 1.4 H Estim Creat Clear Calc 66.2 eGFR 44 L BUN/Creatinine Ratio 37 H Glucose 256 H Calculated Osmolality 294 Calcium 8.8 Corrected Calcium 9.5 Phosphorus 3.7 Magnesium 2.2 Total Bilirubin 1.1 AST 34 ALT 38 Alkaline Phosphatase 287 H D Total Protein 6.5 Albumin 3.1 L D Globulin 3.4 Albumin/Globulin Ratio 0.9 L ABG Interpretation ABG results: 12/22/24 12/22/24 12/23/24 16:49 23:40 13:05 ABG pH 7.39 7.29 L D ABG pCO2 33 37 ABG pO2 60 L 73 L ABG HCO3 20 18 L ABG O2 Saturation 92 94 ABG Base Excess -5 L -8 L VBG pH 7.35 VBG pCO2 37 VBG pO2 27 VBG Base Excess -5 L 12/24/24 12/24/24 12/24/24 08:54 17:12 17:19 ABG pH 7.25 L 7.16 L* ABG pCO2 34 36 ABG pO2 166 H D 127 H D ABG HCO3 15 L 13 L ABG O2 Saturation 100 H 99 H ABG Base Excess -11 L -15 L VBG pH 7.12 L VBG pCO2 42 VBG pO2 44 VBG Base Excess -15 L 12/24/24 12/24/24 12/25/24 19:45 22:40 04:47 ABG pH 7.10 L* 7.21 L D 7.36 D ABG pCO2 50 H D 38 D 37 ABG pO2 249 H D 249 H 191 H D ABG HCO3 15 L 15 L 21 ABG O2 Saturation 100 H 100 H 100 H ABG Base Excess -14 L -12 L -4 L VBG pH VBG pCO2 VBG pO2 VBG Base Excess 12/25/24 12/25/24 12/26/24 15:59 19:55 04:10 ABG pH 7.41 7.41 7.36 ABG pCO2 37 39 37 ABG pO2 128 H D 123 H 99 D ABG HCO3 23 24 21 ABG O2 Saturation 100 H 99 H 98 ABG Base Excess -1 0 -4 L VBG pH VBG pCO2 VBG pO2 VBG Base Excess 12/27/24 12/27/24 12/28/24 04:08 09:45 04:14 ABG pH 7.47 H D 7.42 7.39 ABG pCO2 36 41 45 ABG pO2 82 L 97 114 H ABG HCO3 26 27 H 27 H ABG O2 Saturation 98 99 H 99 H ABG Base Excess 2 2 2 VBG pH VBG pCO2 VBG pO2 VBG Base Excess 12/29/24 12/30/24 12/31/24 04:30 04:50 04:20 ABG pH 7.38 7.37 7.39 ABG pCO2 46 47 45 ABG pO2 109 H 121 H 83 D ABG HCO3 27 H 27 H 27 H ABG O2 Saturation 99 H 99 H 97 ABG Base Excess 1 1 2 VBG pH VBG pCO2 VBG pO2 VBG Base Excess Quality Measures Quality Measures VTE prophylaxis Assessment & Plan Assessment Current Active Medications: Generic Name Dose Route Start Last Admin Trade Name Freq PRN Reason Stop Dose Admin Acetaminophen 650 mg 12/22/24 17:09 12/23/24 10:19 Acetaminophen 325 Mg Tablet PO 01/21/25 17:08 650 mg Q6H PRN Administration Pain 1-3 and/or Fever >100.1 Albuterol/Ipratropium 3 ml 12/23/24 09:36 Albuterol/Ipratropium (Duoneb) Rt Ginny 3 Ml Nebu INH 01/22/25 07:44 Q8HRRT PRN wheezing Clotrimazole 0 gm 12/23/24 09:00 12/31/24 08:07 Clotrimazole Cr 1% 30 Gm Tube TOP 01/22/25 08:59 1 applicatio BID TRACY Administration Dextrose 25 ml 12/22/24 17:09 12/25/24 23:07 Dextrose 50%-Water Inj 50 Ml Syringe IV 01/21/25 17:08 25 ml Q15MIN PRN Administration BG 50-70 responsive npo pt Dextrose 50 ml 12/22/24 17:09 12/25/24 14:03 Dextrose 50%-Water Inj 50 Ml Syringe IV 01/21/25 17:08 50 ml Q15MIN PRN Administration BG <50 OR BG <70 & pt unresponsive Docusate Sodium 100 mg 12/28/24 09:15 12/31/24 07:59 Docusate Sod Liqd 100 Mg/10 Ml Udc PO 01/27/25 09:14 100 mg BID TRACY Administration Protocol Glucagon 1 mg 12/22/24 17:09 Glucagon Inj 1 Mg Vial IM Q15MIN PRN BG <70, and no IV access Heparin Sodium (Porcine) 7,500 unit 12/23/24 14:00 12/29/24 05:12 Heparin Sod Inj 5000 Unit/Ml Vial SC 01/06/25 13:59 7,500 unit On Hold: 12/29/24 10:17 Q8HR TRACY Administration Heparin Sodium (Porcine) 3,000 unit 12/27/24 12:35 12/30/24 19:00 Heparin Sod Inj 1000 Unit/Ml Vial 10 Ml INDWELLCAT 01/10/25 12:34 3,000 unit PRN PRN Administration DIALYSIS Hydromorphone HCl 2 mg 12/31/24 08:15 12/31/24 08:19 Hydromorphone Hcl 2 Mg Tablet GT 01/05/25 08:14 2 mg Q8HR TRACY Administration Norepinephrine Bitartrate 16 mg in 250 mls @ 7.369 mls/hr 12/23/24 07:12 12/30/24 07:38 Levophed In Ns 16mg/250ml IV 01/22/25 07:11 0 mcg/kg/min .Q24H PRN 0 mls/hr PER protocol Titration Protocol 0.05 MCG/KG/MIN Propofol 1,000 mg in 100 mls @ 4.722 mls/hr 12/24/24 16:53 12/31/24 06:00 Diprivan Ivpb IV 01/23/25 16:52 15 mcg/kg/min .[id number] PRN 14.166 mls/hr Per Protocol Titration Protocol 5 MCG/KG/MIN Vasopressin/Sodium Chloride 20 unit in 100 mls @ 9 mls/hr 12/24/24 17:09 Vasostrict/Ns Ivpb IV 01/23/25 17:08 .[id number] PRN PER PROTOCOL Protocol 0.03 UNIT/MIN Fentanyl Citrate 2,500 mcg in 250 mls @ 20 mls/hr 12/29/24 17:41 12/31/24 06:05 Sublimaze Inj 2,500 Mcg/250 Ml Bag IV 01/03/25 17:40 300 mcg/hr .[id number] PRN 30 mls/hr PER PROTOCOL Administration Protocol 200 MCG/HR Ceftriaxone Sodium 2 gm/ 50 mls @ 100 mls/hr 12/30/24 09:23 12/31/24 08:00 Sodium Chloride IV 01/02/25 09:22 100 mls/hr QDAY TRACY Administration Protocol Ondansetron HCl 4 mg 12/22/24 17:09 Ondansetron Inj 2 Mg/Ml Inj 2 Ml IVP 01/21/25 17:08 Q6H PRN NAUSEA OR VOMITING Protocol Pantoprazole Sodium 40 mg 12/25/24 11:15 12/31/24 08:01 Pantoprazole Inj 40 Mg Vial IVP 01/24/25 11:14 40 mg QDAY TRACY Administration Pharmacy Consult 1 each 12/23/24 11:15 Pharmacy Renal Dose Adjustment 1 Ea XX 01/22/25 11:14 PRN PRN CONSULT Sennosides 1 tab 12/22/24 17:09 Senna Tablet PO 01/21/25 17:08 QDAY PRN constipation Protocol Plan 54-year-old female with past medical history of prior [place], lymphedema, lipedema, asthma, epilepsy, morbid obesity, nonambulatory status for 9 years, and wheelchair-bound status presenting to the ED on 12/22 with left lower extremity pain and oozing. INNER LAYER SCRUBBER TENDER was called due to hypotension and, despite aggressive fluid resuscitation, patient remained persistently hypotensive. However, nursing staff was having a hard time to obtain accurate measurement due to body habitus. Repeat labs did revealed lactic acidosis which did not improved even after 5 L of fluids, Cheetah monitor was placed, patient found to be not fluid responsive. Patient was upgraded to ICU for pressor support. No acute events overnight. Patient was seen and assessed at bedside. Patient remains sedated and intubated with mechanically ventilated. Patient has had MAP > 100 throughout the morning with HR being consistently elevated at 130s. Patient continues to saturate well with mechanical ventilation on fio2 .25. Patient made more urine for this most recent 24 hrs at ~500 ml with similar dark brown/red color. Sedation was transiently decreased as oxycodone was started/scheduled. EKG done this morning showing atrial flutter with 1:1 conduction, started amiodarone push/drip. Patient's grandson was contacted again, asked to come in person to hospital to discuss goals of care Neuro #Sedated Dx: Patient is sedated on fentanyl and propofol Rx: -Started dilaudid 2 mg GT q8hr along with dilaudid 1 mg IV x1 and oxycodone 1 tab po q6hr and gabapentin 100 mg po bid in order to try to get off of sedation medication above. Cardiovascular #Atrial Flutter 1:1 conduction #Atrial fibrillation w/ RVR s/p amiodarone drip Dx: Patient was having atrial fibrillation w/ RVR early in her in ICU stay. Converted to sinus rhythm s/p IV amiodarone 12/23-12/26. Patient 10/3 noted to have Atrial flutter with 1:1 conduction on EKG with heart rate persistently around 140 bpm. Rx: -Ordered Amiodarone infusion protocol #HFrEF - EF [40-45%] Dx: -12/22 echocardiogram showed reduced EF of 45% Rx: -Further evaluation in the outpatient setting #Distributive shock 2/2 toxic shock syndrome by Streptococcus pyogenes, resolved On arrival, patient presented with left leg pain and was admitted for sepsis 2/2 UTI and cellulitis. However, she developed hypotension refractory to aggressive fluid resuscitation with accompanying lactic acidosis and was admitted to the ICU for pressor support. She was started on Levophed through a peripheral IV but this led to extravasation and phentolamine had to be infused around the site. Patient's ongoing hypotension is now understood to be due to toxic shock syndrome (had been suspected early due to patient's concomitant drop in platelets and other labs suggesting some level of DIC) from the spread of S treptococcus pyogenes from her cellulitis to the bloodstream (confirmed by blood culture) Cardiogenic etiology less likely due to bedside echocardiogram showing seemingly adequate contractility without large pericardial effusion. Obstructive etiology less likely due to absence of pneumothorax or PE. Hypovolemic etiology less likely due to lack of BP improvement with aggressive fluid resuscitation in the setting of no active bleeding Importantly, clindamycin is unique as an antibiotic for treatment of TSS in that it binds to the 50S ribosomal subunit of bacteria and directly suppresses synthesis of exotoxins like Toxic Shock Syndrome Toxin-1 (TSST-1) and enterotoxins produced by Streptococcus pyogenes Dx: -12/22 BCx (04/01) grew zaman-sensitive Streptococcus pyogenes (Group A Streptococcus) -12/22 echocardiogram showed reduced EF of 45% -Patient has been off of pressor support since this morning, continue to monitor BP. -12/28 Final Repeate blood cultures grew Coag neg Staph Rx: -s/p completion of IVIG administration x 3 [12/23-12/25] -Monitor hemodynamics and titrate pressor support as appropriate to maintain MAP > 65 using BP measured by arterial line -Stress dose IV hydrocortisone 50 mg q6HR for refractory distributive shock [12/24 - 12/31] -Discontinued clindamycin 600 mg q8HR [12/22-12/30, dc'd due to concern for Drug induced Thrombocytopenia and no longer needed for TSS] and meropenem 1000 mg q8HR [12/24-12/30, dc'd due to possible Drug induced Thrombocytopenia] -Continue ceftriaxone 2 g qday with plan of 01/02 stop date for total 10 day dose of ABX Respiratory #Acute respiratory failure with hypoxia requiring intubation and mechanical ventilation 2/2 severe metabolic acidosis, resolving Patient's daughter and grandson were contacted in regards to goals of care discussion. Hoping to have grandson come to the hospital for goals of care discussion tomorrow with daughter on face-time as she is unable to attend to hospital in person and is also the medical decision maker for her mother. Patient has been on ventilator for 7 days as of 12/30, planning to discuss with family regarding that. Dx: -ABG today was favorable Rx: -Continue intubation and mechanical ventilation (not fit for SBT) RRx: -Follow up on repeat ABG and adjust ventilator settings accordingly Renal #Acute renal failure likely 2/2 shock and ATN Creatinine increased to 1.8, likely due to fluid removal from dialysis 12/30 without filtration. However, urine output has been low with mild improvement 12/30 suggesting YOU 2/2 ATN 2/2 renal hypoperfusion Dx: -Patient's UOP last 24 hrs was ~500 cc, trend of mild improvement Rx: -Gave Bumex 1 mg IV x1 to help diurese. -Dialysis as needed per Nephrology recommendations, last dialysis 12/29, plan for dialysis today. -Strict I's & O's -Avoid nephrotoxins #Electrolyte derangements, improving #Hypercalcemia #Hypophosphatemia Today, corrected calcium 9.5 -> 9.5, phosphorus 2.8 -> 3.7 Rx: -Monitor CMP, correct electrolytes as appropriate #Lactic acidosis 2/2 toxic shock syndrome (resolved) #Anion gap metabolic acidosis (resolved) Patient presented with significant lactic acidosis likely 2/2 toxic shock syndrome and YOU that peaked at 10.0 despite receiving broad-coverage antibiotics, which raised concerns for ongoing necrosis or compartment syndrome occurring occultly in patient's extremely lymphedematous legs (resulting in efforts to transfer her for radical surgical intervention at a facility that could offer more specialized care) However, it has now been downtrending and was most recently seen at 2.5 (in the setting of ongoing CRRT), signaling that any dangerous cause of ongoing lactic acidosis (compartment syndrome, necrosis) seems to have slowed or stopped Dx: -LA 2.5 (ongoing CRRT) -12/26 Bilateral lower extremity venous Doppler ultrasound ruled out cerulea dolens 2/2 extensive DVT -12/26 Bedside arterial duplex of dorsalis pedis confirmed blood flow to both feet Rx: -General Surgery (Dr. Hines) consulted regarding possible surgical decompression/debridement options as well as opinions on the viability of transferring patient to another facility for [id number] -Transfer nurse contacted to initiate proceedings necessary to possible transfer (however, due to halt of cellulitic spread and resolving lactic acidosis, pursuit of transfer has been deferred for now) -Treat underlying cause (toxic shock syndrome) GI #Transaminitis In the setting of ongoing toxic shock syndrome, AST/ALT continue down trending Alk phos has been steadily elevating slowly, likely due to increased WBC. #Constipation, resolved Patient has not had a BM for about 3 days now Rx: -PO Colace 100 mg BID scheduled -PO lactulose 40 gm x 1 RRx: -After starting bowel regimen today, patient had a large BM #Stress Ulcer Prophylaxis -Continue IV Protonix 40 mg qD for GI prophylaxis due to patient's intubated status Endocrine #Hyperglycemia Likely due to Steroid use. A1c 12/23/2024 of 5.6, previous one in system is from 2020 at 5.4. No hemoglobin A1c recorded in [facility] medical records actually meeting criteria for T2DM Dx: -Glucose elevated at 256 today, trending upwards. Rx: -Started Insulin Degludec 10 u SC qday -Tube feeds adjusted 12/30 for goal of 60 mL / hr and 30 mL/hr flushes if no IVF -Blood sugar check q6HR Heme #Thrombocytopenia Concern for drug induced vs reactive to acute illness Dx: -PLT 36 (13 previous day) without transfusions. 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 s/p KCentra 5,000 U x 1 on 12/23/24 (protein C concentrates [Ceprotin], which is the [id number] treatment for this diagnosis, is unavailable here) Dx: -Punch biopsy (histopathological confirmation of purpura fulminans diagnosis) pending (contacted lab 12/31, confirmed it is still pending) #Leukocytosis #Leukemoid reaction Patient's WBC continue to be elevated In the setting of ongoing toxic shock syndrome, infection, and steroid medications However, has continued to uptrend while on antibiotics for treatment of toxic shock syndrome Currently suspect this is a benign leukemoid reaction in the setting of acute illness DDx: occult infection due to bacterial (Clostridioides difficile from clindamycin use) or commensal fungal overgrowth Dx: -WBC 52 (42 previous day); continues to trend very high -Patient remains afebrile -Blood cx 04/01 final grew Coag negative Staph #Anemia, microcytic Likely due to MALINA, chart review reveals chronic. Stable, no signs of overt bleeding. Dx: Hgb 7.9 (8.9 previous day) Rx: -Will continue to monitor hgb and for signs of bleeding. #Coagulopathy 2/2 toxic shock syndrome - possible DIC, resolving Patient initially had elevated INR, elevated D-Dimer, and elevated fibrinogen early in her ICU admission which suggested the presence of low-level DIC Dx: -Elevated INR, elevated D-Dimer, and elevated fibrinogen suggestive of low level DIC Rx: -Consider trending coagulation panels RRx: -PT, APTT, fibrinogen, and D-dimer remain elevated at this time but stable ID #Cellulitis #Streptococcus pyogenes bacteremia #Chronic bilateral lower extremity lymphedema Likely source of sepsis and precipitating toxic shock syndrome As mentioned earlier in the Cardiovascular section, clindamycin is unique as an antibiotic for treatment of TSS in that it binds to the 50S ribosomal subunit of bacteria and directly suppresses synthesis of exotoxins like Toxic Shock Syndrome Toxin-1 (TSST-1) and enterotoxins produced by Streptococcus pyogenes Timeline of antibiotic regimen detailed below: 1. IV vancomycin dosed by pharmacy [12/22-12/25, discontinued due to MRSA(-)] 2. IV clindamycin 600 mg q8HR [12/22-12/30, dc'd due to concern for Drug induced Thrombocytopenia and no longer needed for TSS] 3. IV cefepime 2 gm q12HR [12/22-12/24, discontinued after TSS became favored diagnosis] 4. IV meropenem 1000 mg q8HR [12/24-12/30, dc'd due to possible Drug induced Thrombocytopenia] 5. IV Ceftriaxone 2 g qday - Final Day will be 01/02/2025 (will have total ABX coverage for 10 straight days after completion) Dx: -12/22 BCx (04/01) grew zaman-sensitive Streptococcus pyogenes (Group A Streptococcus) -12/31 Final Bcx show Coag Negative Staph Rx: -Current active antibiotic regimen: Started IV Ceftriaxone 2 g qday for 3 days - Final Day will be 01/02/2025 (will have total ABX coverage for 10 straight days after completion) -Patient is on broad-spectrum coverage but WBC continues to uptrend (possibly leukemoid reaction) -Continuing Wound care management Disposition: Patient continues to meet criteria for ongoing ICU management due to continued need for pressors/intubation. DVT prophylaxis: Heparin 7500 q8HR GI prophylaxis: IV Protonix 40 mg qD Diet: Tube Feeds @ 60 mL / hr with 30 cc/hr water flushes Pitts: Present Lines: Peripheral IV, Central IV, arterial line Antibiotics: IV Ceftriaxone 2 g qday CODE STATUS: FULL (consider recommending DNR/DNI to Decision Maker, GOC discussion 12/31) Patient plan of care was discussed with the attending physician, Dr. Donovan & senior resident Dr. Manju CALLEJAS PGY-1
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
[2024-12-31 11:33] LABS: Slide Review Platelets confirmed
[2024-12-31] MEDS: BUMETANIDE INJ 0.25 MG/ML VIAL 4 ML 1 MG IVP (11:35)
[2024-12-31] MEDS: ALBUMIN HUMAN-KJDA 25% IVPB 25 GM/100 ML BTL IV (11:35)
[2024-12-31] MEDS: INSULIN DEGLUDEC 5 UNIT/0.05 ML (PER 5 UNITS) 10 UNIT SC (11:44)
--- NOTE | 2024-12-31 12:36 | PC.NURSE ---
Pt currently peak pressuring intermittently and BP elevated. Per MD lopez due to pain. MD to put orders for pain medication via OG and to wean off sedation and vent.
[2024-12-31] MEDS: AMIODARONE 150 MG IVPB 150 MG/100 ML BAG 600 MG IV (13:38)
[2024-12-31] MEDS: AMIODARONE 360 MG IVPB 360 MG/200 ML BAG 33.333 MG IV (13:56)
--- NOTE | 2024-12-31 14:50 | PC.SS ---
Update: Patient remains intubated/sedated. Not receiving pressor support. OG tube in place for feedings. Afebrile. Patient receiving dialysis today. Dr. Stiles consulting. Wound Care consulting.
[2024-12-31] MEDS: PROPOFOL 1,000 MG IVPB 1,000 MG/100 ML VIAL 9.444 MG IV (16:00)
[2024-12-31] MEDS: HEPARIN SOD INJ 1000 UNIT/ML VIAL 10 ML 3000 UNIT INDWELLCAT (16:29)
[2024-12-31] MEDS: HYDROmorphone INJ 2 MG/ML VIAL IVP (17:08)
[2024-12-31] MEDS: fentaNYL 2,500 MCG/250 ML BAG 2,500 MCG/250 ML BAG 20 MCG IV (19:40)
[2024-12-31] MEDS: GABAPENTIN 100 MG CAPSULE PO (20:22)
[2024-12-31] MEDS: AMIODARONE 360 MG IVPB 360 MG/200 ML BAG 16.667 MG IV (20:22)
[2025-01-01] VITALS (70 sets, daily range): BP systolic 109–143; BP diastolic 75–111; PULSE 135–143; RESP 16–29; TEMP 35.4–36.4; O2SAT 99–100; BMI 63.1
[2025-01-01] MEDS: PROPOFOL 1,000 MG IVPB 1,000 MG/100 ML VIAL 9.444 MG IV (01:10)
[2025-01-01 04:46] LABS: Inspired Oxygen, FIO2 21 %
[2025-01-01 04:47] LABS: Allen Test Performed/OK; Puncture Site Left Radial
[2025-01-01 04:48] LABS: Base Excess 5 (-3-3); HCO3 30 mEq/L (20-26); PCO2 47 mmHg (32.0-48.0); PO2 100 mmHg (83-108); pH, Arterial 7.41 (7.35-7.45)
[2025-01-01 04:49] LABS: O2 Saturation 99 % (91-98)
[2025-01-01 05:42] LABS: Basophils # (Auto) 0.2 Thou/mm3 (0.0-0.2); Basophils % (Auto) 1 % (0-2.5); Eosinophils # (Auto) 0.0 Thou/mm3 (0.0-0.5); Eosinophils % (Auto) 0 % (0-10); Hematocrit 22.7 % (36.0-46.0); Immature Granulocytes Auto 6.19 Thou/mm3 (0.00-0.00); Lymphocytes # (Auto) 3.9 Thou/mm3 (1.0-4.8); Lymphocytes % (Auto) 12 % (10-50); Mean Corpuscular HGB Conc 31.7 g/dl (31.0-37.0); Mean Corpuscular Hemoglobin 25.4 pg (25.0-35.0); Mean Corpuscular Volume 80 fL (80-100); Monocytes # (Auto) 1.4 Thou/mm3 (0.0-0.8); Monocytes % (Auto) 4 % (0-12); Neutrophils # (Auto) 21.9 Thou/mm3 (1.8-7.7); Neutrophils % (Auto) 65 % (37-80); Nucleated Red Blood Cell # 1.30 Thou/mm3 (0.00-0.00); Nucleated Red Blood Cell % 4 /100 WBC (0); RDW Standard Deviation 49.6 fL (36.4-46.3); Red Blood Count 2.83 Miln/mm3 (4.00-5.20); White Blood Count 33.6 Thou/mm3 (3.6-11.0)
[2025-01-01 05:50] LABS: Hemoglobin 7.2 g/dL (12.0-16.0); Platelet Count 64 Thou/mm3 (140-440)
[2025-01-01 06:07] LABS: Slide Review Platelets confirmed
[2025-01-01 06:16] LABS: Alanine Aminotransferase 30 U/L (10-49); Albumin, Serum 3.1 gm/dL (3.5-5.0); Albumin/Globulin Ratio 0.9 (1.2-2.2); Alkaline Phosphatase 273 U/L (46-116); Anion Gap 9 (7-16); Aspartate Amino Transferase 25 U/L (0-34); BUN/Creatinine Ratio 38 Ratio (12-20); Bilirubin,Total 0.8 mg/dL (0.3-1.2); Blood Urea Nitrogen 42 mg/dL (9-23); Calcium 8.3 mg/dL (8.3-10.6); Calcium (Corrected) 9.0 mg/dL (8.5-10.1); Carbon Dioxide 29.2 mMol/L (20.0-31.0); Chloride 98 mMol/L (98-107); Creatinine (Component) 1.1 mg/dL (0.6-1.3); Estimated Creatinine Clearance 83.9 mL/min (>60); Globulin 3.4 gm/dL (2.3-3.5); Glucose 239 mg/dL (74-106); Magnesium 2.0 mg/dL (1.6-2.6); Osmolality,Calculated 290 (275-295); Phosphorous 3.4 mg/dL (2.4-5.1); Potassium 3.4 mMol/L (3.4-5.1); Sodium 136 mMol/L (136-145); Total Protein 6.5 gm/dL (5.7-8.2); eGFR 59 See Note
--- NOTE | 2025-01-01 07:27 | PC.NURSE ---
NOTE FOR 12/26/2024 @0700, attempt to call pt poc daughter for tablo consent, unable to obtain consent, Emergent HD per Dr Stiles
--- NOTE | 2025-01-01 07:46 | ESPR_ITS ---
<Statement entered by Sanjeev Gonzáles MD - 01/01/25 16:02> Patient was seen and examined in the ICU. Overnight, patient's heart rate remained elevated with atrial flutter with 2 to 1 heart block. Patient received Percocet x 1 scheduled and Dilaudid only once overnight. Fentanyl was increased to 200 given elevated blood pressure. No other major event reported. Patient having urine output of 300 cc overnight and around 800 mL in last 24 hours. In the morning, patient was seen and assessed with sedation vacation and appears to have mild grimacing with pain. Patient did not had response to commands. Due to persistent elevated heart rate, metoprolol 5 mg was pushed twice which did not improve heart rate much. Stat chest x-ray, EKG and KUB were ordered to rule out other pathologies. EKG continues to show atrial flutter with 2 is to 1 heart block. Long-acting insulin was increased to 20 units given blood sugars elevated more than 200. ISS was added. Consider Cardizem 10 mg x 1 if HR remains uncontrolled. Cxr showed mild PNA and KUB only showed colonic ileus pattern. Patient squeezed my hand off sedation and nodded her head on inquiring about pain but didnt open eyes. 2 mg IV dilaudid was given.Limited bedside echo showed hyperdynamic circulation in LV. Plan is that we will make her off sedation completely tomorrow morning to assess her GCS and discuss with family later. Extensive goals of care discussion was performed by patient monitor, Dr. Donovan in the presence of RN and residents. Patient's grandson and his girlfriend along with daughter on FaceTime. Patient's hospital course was explained in detail. 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 She was informed that patient's neurological status does not seem to show improvement where she can respond to commands when she is on off sedation although her shock has resolved. As patient has been on ventilator for last 10 days we will need discussion regarding tracheostomy tube along with feeding tube via PEG tube if we would want to continue with current management. Patient has completed course of antibiotic as well. There were explained that before plan to do tracheostomy and PEG tube patient will need amputation of the necrotic tissue especially right upper extremity hand digits and right lower extremity metatarsal region. Family was also given an option for the route of comfort care if they would not like to proceed with any of the intervention and let her pass peacefully in the hospital. Family was deeply affected with conversation and they needed some time to decide about what they would like to proceed with. We will likely do another discussion on January 03, 2025 to have a decision by the family. All their concerns and questions were addressed by patient monitor including quality of life. I discussed and supervised with the analytics intern physician who took care of this patient. I personally saw and examined the patient. I agree with most of the assessment and plan. Disclaimer: Despite multiple revisions, due to the dictation software being used, the document bellow may not be free of grammatical errors including phonetic/typographic errors. However, this does not deter from our commitment to providing health care in the patient's best interest in mind. Plan of care discussed with attending Physician Dr. Zion Gonzáles MD PGY-3 Documentation for date of: 01/01/25 Subjective Subjective Interval history: 54-year-old female with past medical history of prior IA (questionable), lymphedema, lipedema, asthma, epilepsy, morbid obesity, nonambulatory for 9 years, wheelchair-bound presenting to the ED on 12/22 with left lower extremity pain and oozing. Patient states that about 3 weeks ago she slammed her left leg on a brick wall and ever since that time her left leg has progressively worsened and started oozing. Patient lives at home and is largely immobile and requires manager benefit in the form of her grandson who takes care of her. Patient has not been seen by outpatient wound care as she says her motorized wheelchair has been broken. Patient also states that she has had a heart attack in the past but has never followed up with cardiology. Patient also has asthma but she denies having any shortness of breath at this time, uses albuterol twice a week. Medical history: As stated above Surgical history: Denies Allergies: Aspirin, codeine, Keppra, morphine, penicillin causes dyspnea Medications: Pending med rec Family history: Patient's mother and grandmother from breast cancer, denies having any family history of heart attack or stroke Social history: Patient lives at home, grandson manager benefit, denies any alcohol, tobacco or illicit drug use ROS: All 12 systems assessed and the patient denies unless otherwise stated in HPI In the ED, patient presented mildly hypotensive 92/56, heart rate of 92, respiratory rate of 18, afebrile satting 96 on room air. Pertinent lab findings include WBC of 5.8, potassium 3.1, creatinine 1.8, eGFR of 33, lactic acid initially 7.1 uptrending to 8.0, T. bili of 2.2, AST 21, ALT 14, BNP of 385, Pro-Umberto of 87. Urinalysis shows signs of urinary tract infection. Venous Doppler study is negative for DVT, chest x-ray does not show any active disease and tibia/fibula x-ray shows no acute fracture. Patient was admitted to floors for sepsis secondary to cellulitis. On 12/23, LEGAL BILLING COORDINATOR was called due to hypotension, despite aggressive fluid resuscitation patient was remained persistent hypotensive, however nursing staff was having a hard time to obtain accurate measurement due to body habitus. Repeat labs did revealed lactic acidosis which did not improved even after 5 L of fluids, Cheetah monitor was placed, patient found to be not fluid responsive. At this point decision was made to upgrade patient to ICU for pressor support. *Refer to previous notes for Interval History from 12/23-12/28* 12/29/2024: Patient seen and examined at bedside. Patient is occasionally moving/wincing from pain, no eye or voice response to pain, GCS of 6t. Patient was on and off levophed this morning, currently off of levophed now. Patient vitals this morning were BP 146/86, HR 120, Saturating well on AC/MV FIO2 of 30, PEEP of 12. Patient urine output of 34 ml for last 24 hours. Net I/O for hospitalization is +18 liters. 2 BM last 24 hours. Patient's WBC downtrended secure software assessor to 38 and uptrended in early PM to 54 (done to check on PLT count, but platelets not given yet because of low supply, PLT count currently 17). ABG pH 7.38 this morning. 12/30/2024: No acute events overnight. Patient was seen and assessed at bedside. Patient remains intubated and mechanically ventilated. Bedside BP has been 140 systolically, well above MAP goal, heart rate has been in 120-130s this morning, has been on low dose levophed overnight. Patient was taken off sedation, has been having more elevated blood pressures likely due to pain and has been able to shake her head yes in response to be asked if she is in pain. Patient was moving her limbs spontaneously this morning along with non-localized movements in response to pain. Patient did not respond verbally to pain nor did she open her eyes to pain. Patient's cellulitis and lymphedema appears similar to yesterday. Patient made more urine (215 ml) in the past 24 hours compared to previous days. Patient had 1 bowel movement. Patients wbc 42 (54), hgb 7.1 -> 8.9 after repeat h&h; abg continues to be favorable; blood cx x1 grew GPC in clusters. Patient's daughter and grandson were contacted in regards to goals of care discussion. 12/31/2024: No acute events overnight. Patient was seen and assessed at bedside. Patient remains sedated and intubated with mechanically ventilated. Patient has had MAP > 100 throughout the morning with HR being consistently elevated at 130s while being off of pressors. Patient continues to saturate well with mechanical ventilation on fio2 .25. Patient made more urine for this most recent 24 hrs at ~500 ml with similar dark brown/red color. Had 1 BM last 24 hours. Sedation was transiently decreased as oxycodone was started/scheduled. EKG done this morning showing atrial flutter with 1:1 conduction. Patient was given diltiazem 10 g IV x1 and metoprolol tartrate 2 mg IV x1 without decrease in heart rate. Patient was then started amiodarone push/drip a few hours after that. Patient's grandson was contacted again, asked to come in person to hospital to discuss goals of care. 01/01/2025: No acute events overnight. Patient was seen and assessed at bedside. Patient remains sedated and intubated with mechanically ventilated. Patient's sedation is attempting to be weaned off this morning. Patient has had MAP around 100 this morning. Patient's HR continued to be elevated steadily at ~140. Patient is finishing her amiodaone drip this morning. Patient was also given metoprolol 5 mg x2 this morning in attempt to lower HR with minimal improvements. Ordered another EKG to assess. Patient made more urine the most recent 24 hours at ~825 ml. Patient did not have a bowel movemenet in the last 24 hours. Ordered a KUB to rule out SBO. Patient's caregiver Rosalva and patient's daughter (via face time) were present for goals of care discussion. Refer to event note for more details. Plan to continue goals of care discussion in a few days. Exam Vital Signs Temp Pulse Resp BP Pulse Ox O2 Del Method O2 Flow Rate 96.8 F 141 H 21 H 140/98 H 99 Mechanical Ventilation 30 01/01/25 06:00 01/01/25 07:37 01/01/25 07:37 01/01/25 07:37 01/01/25 07:37 12/31/24 16:00 12/28/24 17:00 FiO2 01/01/25 07:37 Narrative Exam General: Morbidly obese, Intubated, Sedated Skin: Refer to extremities; Mild pressure injuries on back, upper buttock; RLQ abdominal bruise HENT: NCAT, EOMI, not icteric. External ears normal. No rhinorrhea. Moist mucous membranes Cardiovascular: Tachycardic, regular rhythm, no murmur, +S1/S2 (difficult to assess with body habitus) Respiratory: Lungs CTAB (difficult to assess with body habitus) GI: Soft, nontender, non-distended. No guarding or rebound tenderness Extremities: BL LE skin Lower extremity erythema extending up the lateral left thigh and reaches up towards the left side of patient's hip and torso as well as bullae bilaterally; cyanotic/ischemic appearance of bilateral toes (worse on the left foot). Necrotic lesions of the toes on left foot. Multiple areas of induration and denuded skin of bilateral lower extremities anteriorly. Mottling noted of right lower extremity. Posterior left thigh appears purple and engorged. Discolored lesion near right buttock. R sided popliteal pulse able to be appreciated by handheld Doppler; L sided LE pulses unable to be palpated or appreciated by handheld doppler although L LE is warm and red in color. Dusky discoloration of right fingers to DIP, dusky discoloration noted of left pointer finger and middle finger. Hands feel cold and puffy. Hyperkeratinization and lichenification of both feet. - negligible changes overall to physical exam compared to previous day. Neuro: Intubated, Sedated Psychiatric: Not examined (Intubated, Sedated) Objective Labs 01/02/25 05:00 01/02/25 05:00 Labs: Laboratory Results - last 24 hr 12/31/24 01/01/25 01/01/25 05:40 04:38 04:40 WBC 33.6 H D RBC 2.83 L Hgb 7.2 L Hct 22.7 L MCV 80 MCH 25.4 MCHC 31.7 RDW Std Deviation 49.6 H Plt Count 64 L D Neut % (Auto) 65 Lymph % (Auto) 12 [place] % (Auto) 4 Eos % (Auto) 0 Baso % (Auto) 1 Neut # (Auto) 21.9 H Lymph # (Auto) 3.9 [place] # (Auto) 1.4 H Eos # (Auto) 0.0 Baso # (Auto) 0.2 Immature Gran # (Auto) 6.19 H Absolute Nucleated RBC 1.30 H Immature Gran % 18 H Nucleated RBC % 4 H Smear Path Review Cancelled Puncture Site Left Radial ABG pH 7.41 ABG pCO2 47 ABG pO2 100 ABG HCO3 30 H ABG O2 Saturation 99 H ABG Base Excess 5 H FiO2 21 Sodium 136 Potassium 3.4 D Chloride 98 Carbon Dioxide 29.2 Anion Gap 9 BUN 42 H Creatinine 1.1 Estim Creat Clear Calc 83.9 eGFR 59 L BUN/Creatinine Ratio 38 H Glucose 239 H Calculated Osmolality 290 Calcium 8.3 Corrected Calcium 9.0 Phosphorus 3.4 Magnesium 2.0 Total Bilirubin 0.8 AST 25 ALT 30 Alkaline Phosphatase 273 H Total Protein 6.5 Albumin 3.1 L Globulin 3.4 Albumin/Globulin Ratio 0.9 L Misc Test Result Platelets confirmed Platelets confirmed ABG Interpretation ABG results: 12/22/24 12/22/24 12/23/24 16:49 23:40 13:05 ABG pH 7.39 7.29 L D ABG pCO2 33 37 ABG pO2 60 L 73 L ABG HCO3 20 18 L ABG O2 Saturation 92 94 ABG Base Excess -5 L -8 L VBG pH 7.35 VBG pCO2 37 VBG pO2 27 VBG Base Excess -5 L 12/24/24 12/24/24 12/24/24 08:54 17:12 17:19 ABG pH 7.25 L 7.16 L* ABG pCO2 34 36 ABG pO2 166 H D 127 H D ABG HCO3 15 L 13 L ABG O2 Saturation 100 H 99 H ABG Base Excess -11 L -15 L VBG pH 7.12 L VBG pCO2 42 VBG pO2 44 VBG Base Excess -15 L 12/24/24 12/24/24 12/25/24 19:45 22:40 04:47 ABG pH 7.10 L* 7.21 L D 7.36 D ABG pCO2 50 H D 38 D 37 ABG pO2 249 H D 249 H 191 H D ABG HCO3 15 L 15 L 21 ABG O2 Saturation 100 H 100 H 100 H ABG Base Excess -14 L -12 L -4 L VBG pH VBG pCO2 VBG pO2 VBG Base Excess 12/25/24 12/25/24 12/26/24 15:59 19:55 04:10 ABG pH 7.41 7.41 7.36 ABG pCO2 37 39 37 ABG pO2 128 H D 123 H 99 D ABG HCO3 23 24 21 ABG O2 Saturation 100 H 99 H 98 ABG Base Excess -1 0 -4 L VBG pH VBG pCO2 VBG pO2 VBG Base Excess 12/27/24 12/27/24 12/28/24 04:08 09:45 04:14 ABG pH 7.47 H D 7.42 7.39 ABG pCO2 36 41 45 ABG pO2 82 L 97 114 H ABG HCO3 26 27 H 27 H ABG O2 Saturation 98 99 H 99 H ABG Base Excess 2 2 2 VBG pH VBG pCO2 VBG pO2 VBG Base Excess 12/29/24 12/30/24 12/31/24 04:30 04:50 04:20 ABG pH 7.38 7.37 7.39 ABG pCO2 46 47 45 ABG pO2 109 H 121 H 83 D ABG HCO3 27 H 27 H 27 H ABG O2 Saturation 99 H 99 H 97 ABG Base Excess 1 1 2 VBG pH VBG pCO2 VBG pO2 VBG Base Excess 01/01/25 04:38 ABG pH 7.41 ABG pCO2 47 ABG pO2 100 ABG HCO3 30 H ABG O2 Saturation 99 H ABG Base Excess 5 H VBG pH VBG pCO2 VBG pO2 VBG Base Excess Quality Measures Quality Measures VTE prophylaxis Assessment & Plan Assessment Current Active Medications: Generic Name Dose Route Start Last Admin Trade Name Freq PRN Reason Stop Dose Admin Acetaminophen 650 mg 12/22/24 17:09 12/23/24 10:19 Acetaminophen 325 Mg Tablet PO 01/21/25 17:08 650 mg Q6H PRN Administration Pain 1-3 and/or Fever >100.1 Albuterol/Ipratropium 3 ml 12/23/24 09:36 Albuterol/Ipratropium (Duoneb) Rt Ginny 3 Ml Nebu INH 01/22/25 07:44 Q8HRRT PRN wheezing Clotrimazole 0 gm 12/23/24 09:00 12/31/24 21:30 Clotrimazole Cr 1% 30 Gm Tube TOP 01/22/25 08:59 1 applicatio BID TRACY Administration Dextrose 25 ml 12/22/24 17:09 12/25/24 23:07 Dextrose 50%-Water Inj 50 Ml Syringe IV 01/21/25 17:08 25 ml Q15MIN PRN Administration BG 50-70 responsive npo pt Dextrose 50 ml 12/22/24 17:09 12/25/24 14:03 Dextrose 50%-Water Inj 50 Ml Syringe IV 01/21/25 17:08 50 ml Q15MIN PRN Administration BG <50 OR BG <70 & pt unresponsive Docusate Sodium 100 mg 12/28/24 09:15 12/31/24 20:22 Docusate Sod Liqd 100 Mg/10 Ml Udc PO 01/27/25 09:14 100 mg BID TRACY Administration Protocol Gabapentin 100 mg 12/31/24 21:00 12/31/24 20:22 Gabapentin 100 Mg Capsule PO 01/30/25 20:59 100 mg BID TRACY Administration Glucagon 1 mg 12/22/24 17:09 Glucagon Inj 1 Mg Vial IM Q15MIN PRN BG <70, and no IV access Heparin Sodium (Porcine) 7,500 unit 12/23/24 14:00 12/29/24 05:12 Heparin Sod Inj 5000 Unit/Ml Vial SC 01/06/25 13:59 7,500 unit On Hold: 12/29/24 10:17 Q8HR TRACY Administration Heparin Sodium (Porcine) 3,000 unit 12/27/24 12:35 12/31/24 16:29 Heparin Sod Inj 1000 Unit/Ml Vial 10 Ml INDWELLCAT 01/10/25 12:34 3,000 unit PRN PRN Administration DIALYSIS Hydromorphone HCl 2 mg 12/31/24 11:02 Hydromorphone Inj 2 Mg/Ml Vial IVP 01/05/25 11:01 Q4HR PRN PAIN Propofol 1,000 mg in 100 mls @ 4.722 mls/hr 12/24/24 16:53 01/01/25 06:00 Diprivan Ivpb IV 01/23/25 16:52 10 mcg/kg/min .[id number] PRN 9.444 mls/hr Per Protocol Titration Protocol 5 MCG/KG/MIN Fentanyl Citrate 2,500 mcg in 250 mls @ 20 mls/hr 12/29/24 17:41 01/01/25 06:00 Sublimaze Inj 2,500 Mcg/250 Ml Bag IV 01/03/25 17:40 200 mcg/hr .[id number] PRN 20 mls/hr PER PROTOCOL Titration Protocol 200 MCG/HR Ceftriaxone Sodium 2 gm/ 50 mls @ 100 mls/hr 12/30/24 09:23 12/31/24 09:28 Sodium Chloride IV 01/02/25 09:22 Infused QDAY TRACY Infusion Protocol Amiodarone HCl/Dextrose 360 mg in 200 mls @ 16.667 mls/hr 12/31/24 19:23 12/31/24 20:22 Nexterone Ivpb IV 01/01/25 19:22 16.667 mls/hr .Q12H TRACY Administration Insulin Degludec 10 unit 01/01/25 09:00 Insulin Degludec 5 Unit/0.05 Ml (Per 5 Units) SC 01/31/25 08:59 QDAY TRACY Ondansetron HCl 4 mg 12/22/24 17:09 Ondansetron Inj 2 Mg/Ml Inj 2 Ml IVP 01/21/25 17:08 Q6H PRN NAUSEA OR VOMITING Protocol Oxycodone/Acetaminophen 1 tab 12/31/24 12:00 01/01/25 06:19 Oxycodone/Apap 5/325 Tablet PO 01/05/25 11:59 1 tab Q6HR TRACY Administration Pantoprazole Sodium 40 mg 12/25/24 11:15 12/31/24 08:01 Pantoprazole Inj 40 Mg Vial IVP 01/24/25 11:14 40 mg QDAY TRACY Administration Pharmacy Consult 1 each 12/23/24 11:15 Pharmacy Renal Dose Adjustment 1 Ea XX 01/22/25 11:14 PRN PRN CONSULT Sennosides 1 tab 12/22/24 17:09 Senna Tablet PO 01/21/25 17:08 QDAY PRN constipation Protocol Plan 54-year-old female with past medical history of prior IA, lymphedema, lipedema, asthma, epilepsy, morbid obesity, nonambulatory status for 9 years, and wheelchair-bound status presenting to the ED on 12/22 with left lower extremity pain and oozing. LEGAL BILLING COORDINATOR was called due to hypotension and, despite aggressive fluid resuscitation, patient remained persistently hypotensive. However, nursing staff was having a hard time to obtain accurate measurement due to body habitus. Repeat labs did revealed lactic acidosis which did not improved even after 5 L of fluids, Cheetah monitor was placed, patient found to be not fluid responsive. Patient was upgraded to ICU for pressor support. 01/01/2025: No acute events overnight. Patient was seen and assessed at bedside. Patient remains sedated and intubated with mechanically ventilated. Patient's sedation is attempting to be weaned off this morning. Patient has had MAP around 100 this morning. Patient's HR continued to be elevated steadily at ~140. Patient is finishing her amiodaone drip this morning. Patient was also given metoprolol 5 mg x2 this morning in attempt to lower HR with minimal improvements. Ordered another EKG to assess. Patient given an extra 5 units Degludec after the scheduled 10 units for the day; new scheduled will be 15 units given continued elevated blood sugars. Patient made more urine the most recent 24 hours at ~825 ml. Patient did not have a bowel movemenet in the last 24 hours. Ordered a KUB to rule out SBO. Patient's caregiver Rosalva and patient's daughter (via face time) were present for goals of care discussion. Refer to event note for more details. Plan to continue goals of care discussion in a few days. Neuro #Sedated Dx: Patient is sedated on fentanyl and propofol Rx: -Currently weaning sedation to assess readiness for extubation -Oxycodone and gabapentin scheduled, dilaudid prn Cardiovascular #Atrial Flutter on amiodarone drip #Atrial fibrillation w/ RVR s/p amiodarone drip (12/23 - 12/26) Dx: Patient was having atrial fibrillation w/ RVR early in her in ICU stay. Converted to sinus rhythm s/p IV amiodarone 12/23-12/26. Patient 12/31 - 01/01 noted to have Atrial flutter on EKG with heart rate persistently around 140 bpm. Bedside echo 01/01 showed hyperdynamic Left Ventricle Rx: -Increased Amiodarone infusion rate of 0.5 mg/min to 1 mg/min -Given metoprolol 5 mg x2 this morning in attempt to lower HR with minimal improvements #HFrEF - EF [40-45%] Dx: -12/22 echocardiogram showed reduced EF of 45% Rx: -Further evaluation in the outpatient setting #Distributive shock 2/2 toxic shock syndrome by Streptococcus pyogenes, resolved On arrival, patient presented with left leg pain and was admitted for sepsis 2/2 UTI and cellulitis. However, she developed hypotension refractory to aggressive fluid resuscitation with accompanying lactic acidosis and was admitted to the ICU for pressor support. She was started on Levophed through a peripheral IV but this led to extravasation and phentolamine had to be infused around the site. Patient's ongoing hypotension is now understood to be due to toxic shock syndrome (had been suspected early due to patient's concomitant drop in platelets and other labs suggesting some level of DIC) from the spread of S treptococcus pyogenes from her cellulitis to the bloodstream (confirmed by blood culture) Cardiogenic etiology less likely due to bedside echocardiogram showing seemingly adequate contractility without large pericardial effusion. Obstructive etiology less likely due to absence of pneumothorax or PE. Hypovolemic etiology less likely due to lack of BP improvement with aggressive fluid resuscitation in the setting of no active bleeding Importantly, clindamycin is unique as an antibiotic for treatment of TSS in that it binds to the 50S ribosomal subunit of bacteria and directly suppresses synthesis of exotoxins like Toxic Shock Syndrome Toxin-1 (TSST-1) and enterotoxins produced by Streptococcus pyogenes Dx: -12/22 BCx (04/01) grew zaman-sensitive Streptococcus pyogenes (Group A Streptococcus) -12/22 echocardiogram showed reduced EF of 45% -Patient has been off of pressor support since this morning, continue to monitor BP. -12/28 Final Repeat blood cultures grew Coag neg Staph Rx: -s/p completion of IVIG administration x 3 [12/23-12/25] -Monitor hemodynamics and titrate pressor support as appropriate to maintain MAP > 65 using BP measured by arterial line -Stress dose IV hydrocortisone 50 mg q6HR for refractory distributive shock [12/24 - 12/31] -Discontinued clindamycin 600 mg q8HR [12/22-12/30, dc'd due to concern for Drug induced Thrombocytopenia and no longer needed for TSS] and meropenem 1000 mg q8HR [12/24-12/30, dc'd due to possible Drug induced Thrombocytopenia] -Ceftriaxone 2 g qday [12/30 - 01/01 for total ABX course of 10 days] Respiratory #Acute respiratory failure with hypoxia requiring intubation and mechanical ventilation 2/2 severe metabolic acidosis, resolving Patient's daughter and grandson were contacted in regards to goals of care discussion. Hoping to have grandson come to the hospital for goals of care discussion tomorrow with daughter on face-time as she is unable to attend to hospital in person and is also the medical decision maker for her mother. Patient has been on ventilator for 7 days as of 12/30, planning to discuss with family regarding that. Dx: -ABG today was favorable -CXR 01/01: Atelectasis versus mild pneumonia both bases Rx: -Continue intubation and mechanical ventilation (not fit for SBT -- attempting to wean off sedation) RRx: -Follow up on repeat ABG and adjust ventilator settings accordingly Renal #Acute renal failure likely 2/2 shock and ATN Creatinine increased to 1.8, likely due to fluid removal from dialysis 12/30 without filtration. However, urine output has been low with mild improvement 12/30 suggesting YOU 2/2 ATN 2/2 renal hypoperfusion Dx: -Patient's UOP last 24 hrs was ~825 cc, continues trend of mild improvement Rx: -Gave Bumex 1 mg IV x1 to help diurese 12/31 -Dialysis as needed per Nephrology recommendations, last dialysis 12/29, plan for dialysis today. -Strict I's & O's -Avoid nephrotoxins #Electrolyte derangements, improving #Hypercalcemia #Hypophosphatemia Today, corrected calcium 9.5 -> 9.5, phosphorus 2.8 -> 3.7 Rx: -Monitor CMP, correct electrolytes as appropriate #Lactic acidosis 2/2 toxic shock syndrome (resolved) #Anion gap metabolic acidosis (resolved) Patient presented with significant lactic acidosis likely 2/2 toxic shock syndrome and YOU that peaked at 10.0 despite receiving broad-coverage antibiotics, which raised concerns for ongoing necrosis or compartment syndrome occurring occultly in patient's extremely lymphedematous legs (resulting in efforts to transfer her for radical surgical intervention at a facility that could offer more specialized care) However, it has now been downtrending and was most recently seen at 2.5 (in the setting of ongoing CRRT), signaling that any dangerous cause of ongoing lactic acidosis (compartment syndrome, necrosis) seems to have slowed or stopped Dx: -LA 2.5 (ongoing CRRT) -12/26 Bilateral lower extremity venous Doppler ultrasound ruled out cerulea dolens 2/2 extensive DVT -12/26 Bedside arterial duplex of dorsalis pedis confirmed blood flow to both feet Rx: -General Surgery (Dr. Hines) consulted regarding possible surgical decompression/debridement options as well as opinions on the viability of transferring patient to another facility for [id number] -Transfer nurse contacted to initiate proceedings necessary to possible transfer (however, due to halt of cellulitic spread and resolving lactic acidosis, pursuit of transfer has been deferred for now) -Treat underlying cause (toxic shock syndrome) GI #Transaminitis In the setting of ongoing toxic shock syndrome, AST/ALT continue down trending Alk phos has been steadily elevated, likely due to increased WBC. #Constipation Patient did not have a bowel movement the last 24 hours, possibly due to increase opioid usage. Rx: -Abd XR 01/01 showed Moderate colonic ileus, no obstruction -PO Colace 100 mg BID scheduled RRx: -Patient currently being weaned off of fentanyl, still have scheduled oxycodone and prn dilaudid #Stress Ulcer Prophylaxis -Continue IV Protonix 40 mg qD for GI prophylaxis due to patient's intubated status Endocrine #Hyperglycemia Likely due to Steroid use. A1c 12/23/2024 of 5.6, previous one in system is from 2020 at 5.4. No hemoglobin A1c recorded in [facility] medical records actually meeting criteria for T2DM Dx: -Glucose remains elevated in 200s. Rx: -Increased Insulin Degludec to 20 u SC qday -Started Lispro sliding scale q6hr -Tube feeds of 60 mL / hr and 30 mL/hr flushes if no IVF -Blood sugar check q6HR Heme #Thrombocytopenia Concern for drug induced vs reactive to acute illness Dx: -PLT 64, improving without transfusions. 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) pending (contacted lab 12/31, confirmed it is still pending) #Leukocytosis #Leukemoid reaction Patient's WBC continue to be elevated In the setting of ongoing toxic shock syndrome, infection, and steroid medications However, has continued to uptrend while on antibiotics for treatment of toxic shock syndrome Currently suspect this is a benign leukemoid reaction in the setting of acute illness DDx: occult infection due to bacterial (Clostridioides difficile from clindamycin use) or commensal fungal overgrowth Dx: -WBC 33.6 (53) -Patient remains afebrile -Blood cx 04/01 final grew Coag negative Staph (12/28) #Anemia, microcytic Likely due to MALINA, chart review reveals chronic. Stable, no signs of overt bleeding. Dx: -Hgb 7.2 (7.9) Rx: -Will continue to monitor hgb and for signs of bleeding. #Coagulopathy 2/2 toxic shock syndrome - possible DIC, resolving Patient initially had elevated INR, elevated D-Dimer, and elevated fibrinogen early in her ICU admission which suggested the presence of low-level DIC Dx: -Elevated INR, elevated D-Dimer, and elevated fibrinogen suggestive of low level DIC Rx: -Consider trending coagulation panels RRx: -PT, APTT, fibrinogen, and D-dimer remain elevated at this time but stable ID #Cellulitis #Streptococcus pyogenes bacteremia #Chronic bilateral lower extremity lymphedema Likely source of sepsis and precipitating toxic shock syndrome As mentioned earlier in the Cardiovascular section, clindamycin is unique as an antibiotic for treatment of TSS in that it binds to the 50S ribosomal subunit of bacteria and directly suppresses synthesis of exotoxins like Toxic Shock Syndrome Toxin-1 (TSST-1) and enterotoxins produced by Streptococcus pyogenes Timeline of antibiotic regimen detailed below: 1. IV vancomycin dosed by pharmacy [12/22-12/25, discontinued due to MRSA(-)] 2. IV clindamycin 600 mg q8HR [12/22-12/30, dc'd due to concern for Drug induced Thrombocytopenia and no longer needed for TSS] 3. IV cefepime 2 gm q12HR [12/22-12/24, discontinued after TSS became favored diagnosis] 4. IV meropenem 1000 mg q8HR [12/24-12/30, dc'd due to possible Drug induced Thrombocytopenia] 5. IV Ceftriaxone 2 g qday [12/30 - 01/01 for total ABX course of 10 days] Dx: -12/22 BCx (04/01) grew zaman-sensitive Streptococcus pyogenes (Group A Streptococcus) -12/31 Final Bcx show Coag Negative Staph Rx: -Continuing Wound care management Disposition: ICU due to continued need for pressors/intubation (weaning off sedation currently) DVT prophylaxis: Heparin 7500 q8HR GI prophylaxis: IV Protonix 40 mg qD Diet: Tube Feeds @ 60 mL / hr with 30 cc/hr water flushes Pitts: Present Lines: Peripheral IV, Central IV, arterial line Antibiotics: None CODE STATUS: FULL (consider recommending DNR/DNI to Decision Maker; GOC discussion had on 01/01 and tentatively planned again 01/03) Patient plan of care was discussed with the attending physician, Dr. Donovan & senior resident Dr. Nivia Dye MD PGY-1 Attending Provider Attestation/Addendum Patient seen and examined resident. Agree with above. 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 No significant change in her physical exam. She has significant areas of necrosis on her legs as well as the digits of her right hand. Goals of care discussed with daughter via phone yesterday and her caregiver was also present. The daughter was shown the extensive injuries that her mother has and discussion was held that in the near future if she does not wake up determination regarding proceeding with trach and PEG or comfort care will be needed. Her urinary output has continued to improve she did undergo dialysis with volume removal she was transfused 1 unit of PRBCs. Case discussed with ICU team Discussed with nephrology Labs, imaging and records reviewed Approximately 38ccmin required for evaluation, exam, review, intervention, discussion and formulation of plan of care for this critically ill patient at high risk for further and ongoing decompensation
[2025-01-01] MEDS: AMIODARONE 360 MG IVPB 360 MG/200 ML BAG 16.667 MG IV (07:51)
[2025-01-01 07:58] LABS: Hematocrit 22.1 % (36.0-46.0)
[2025-01-01 08:05] LABS: Hemoglobin 7.2 g/dL (12.0-16.0)
[2025-01-01] MEDS: CLOTRIMAZOLE CR 1% 30 GM TUBE TOP ×2 (08:20→21:45)
[2025-01-01] MEDS: cefTRIAXone 2 GM in SODIUM CHLORIDE 0.9% (Popper) 50 ML IV (08:24)
[2025-01-01] MEDS: fentaNYL 2,500 MCG/250 ML BAG 2,500 MCG/250 ML BAG 15 MCG IV (08:31)
[2025-01-01] MEDS: INSULIN DEGLUDEC 5 UNIT/0.05 ML (PER 5 UNITS) 10 UNIT SC (08:35)
[2025-01-01] MEDS: DOCUSATE SOD LIQD 100 MG/10 ML UDC GT ×2 (08:44→21:45)
[2025-01-01] MEDS: GABAPENTIN 100 MG CAPSULE GT ×2 (08:47→21:45)
--- NOTE | 2025-01-01 09:09 | ESPR_ITS ---
Documentation for date of: 01/01/25 Subjective Subjective Interval history: Patient was seen and assessed at bedside. Started on amiodarone bolus and drip at 0.5 mg/min around 1 PM yesterday however repeat EKG this morning shows that patient continues to be in afib with RVR with HR in 130s-140s overnight. SBP 130s. WBC 33.6 (52.9 yesterday). Hgb continues to be low, dropped to 7.2. Platelet increased to 64 after 1 unit transfused yesterday. Potassium 3.4, magnesium 2.0, highly recommend repletion to keep K >4 and Mg>2. Her BUN is elevated at 42 as well as hemoglobin is dropping down over the last couple of days which is contributing to the RVR. Patient mostly has upper GI bleed mostly secondary to oozing of blood from the possible stress-induced gastritis. Recommended primary team to obtain stool guaiac has been GI consult. Discussed this with the critical care attending Day 3 of conventional dialysis, plan to remove another 3 L. Weaning sedatives, plan for extubation today. GOC discussion with family today. Exam Vital Signs Temp Pulse Resp BP Pulse Ox O2 Del Method O2 Flow Rate 96.8 F 141 H 21 H 139/111 H 99 Mechanical Ventilation 30 01/01/25 08:00 01/01/25 09:00 01/01/25 07:37 01/01/25 09:00 01/01/25 09:00 01/01/25 08:00 12/28/24 17:00 FiO2 25 01/01/25 08:00 Narrative Exam GENERAL: Patient is intubated and mechanically ventilated. Remains on sedation. HEENT: NC/AT, trachea appears midline, androgenic hair distribution on the chin CARDIOVASCULAR: Irregular rate and rhythm, tachycardic. PULMONARY: symmetric chest rise, on vent, decreased air entry bilaterally due to body habitus ABDOMINAL: soft, non-distended, bowel sounds present EXTREMITIES: Severe left leg swelling with severe hyperkeratotic changes. Left leg swelling with severe hyperkeratotic changes bilaterally. Majority of bullae have ruptured, wounds have been dressed. Cellulitis appears to be improving, withdrawing from marked borders. NEURO: limited due to patient mental status and intubation Objective Labs 01/02/25 16:30 01/02/25 05:00 Labs: Laboratory Results - last 24 hr 12/31/24 01/01/25 01/01/25 05:40 04:38 04:40 WBC 33.6 H D RBC 2.83 L Hgb 7.2 L Hct 22.7 L MCV 80 MCH 25.4 MCHC 31.7 RDW Std Deviation 49.6 H Plt Count 64 L D Neut % (Auto) 65 Lymph % (Auto) 12 Alpine % (Auto) 4 Eos % (Auto) 0 Baso % (Auto) 1 Neut # (Auto) 21.9 H Lymph # (Auto) 3.9 Alpine # (Auto) 1.4 H Eos # (Auto) 0.0 Baso # (Auto) 0.2 Immature Gran # (Auto) 6.19 H Absolute Nucleated RBC 1.30 H Immature Gran % 18 H Nucleated RBC % 4 H Smear Path Review Cancelled Puncture Site Left Radial ABG pH 7.41 ABG pCO2 47 ABG pO2 100 ABG HCO3 30 H ABG O2 Saturation 99 H ABG Base Excess 5 H FiO2 21 Sodium 136 Potassium 3.4 D Chloride 98 Carbon Dioxide 29.2 Anion Gap 9 BUN 42 H Creatinine 1.1 Estim Creat Clear Calc 83.9 eGFR 59 L BUN/Creatinine Ratio 38 H Glucose 239 H Calculated Osmolality 290 Calcium 8.3 Corrected Calcium 9.0 Phosphorus 3.4 Magnesium 2.0 Total Bilirubin 0.8 AST 25 ALT 30 Alkaline Phosphatase 273 H Total Protein 6.5 Albumin 3.1 L Globulin 3.4 Albumin/Globulin Ratio 0.9 L Misc Test Result Platelets confirmed Platelets confirmed Crossmatch 01/01/25 07:18 WBC RBC Hgb 7.2 L Hct 22.1 L MCV MCH MCHC RDW Std Deviation Plt Count Neut % (Auto) Lymph % (Auto) Alpine % (Auto) Eos % (Auto) Baso % (Auto) Neut # (Auto) Lymph # (Auto) Alpine # (Auto) Eos # (Auto) Baso # (Auto) Immature Gran # (Auto) Absolute Nucleated RBC Immature Gran % Nucleated RBC % Smear Path Review Puncture Site ABG pH ABG pCO2 ABG pO2 ABG HCO3 ABG O2 Saturation ABG Base Excess FiO2 Sodium Potassium Chloride Carbon Dioxide Anion Gap BUN Creatinine Estim Creat Clear Calc eGFR BUN/Creatinine Ratio Glucose Calculated Osmolality Calcium Corrected Calcium Phosphorus Magnesium Total Bilirubin AST ALT Alkaline Phosphatase Total Protein Albumin Globulin Albumin/Globulin Ratio Misc Test Result Crossmatch See Detail ABG Interpretation ABG results: 12/22/24 12/22/24 12/23/24 16:49 23:40 13:05 ABG pH 7.39 7.29 L D ABG pCO2 33 37 ABG pO2 60 L 73 L ABG HCO3 20 18 L ABG O2 Saturation 92 94 ABG Base Excess -5 L -8 L VBG pH 7.35 VBG pCO2 37 VBG pO2 27 VBG Base Excess -5 L 12/24/24 12/24/24 12/24/24 08:54 17:12 17:19 ABG pH 7.25 L 7.16 L* ABG pCO2 34 36 ABG pO2 166 H D 127 H D ABG HCO3 15 L 13 L ABG O2 Saturation 100 H 99 H ABG Base Excess -11 L -15 L VBG pH 7.12 L VBG pCO2 42 VBG pO2 44 VBG Base Excess -15 L 12/24/24 12/24/24 12/25/24 19:45 22:40 04:47 ABG pH 7.10 L* 7.21 L D 7.36 D ABG pCO2 50 H D 38 D 37 ABG pO2 249 H D 249 H 191 H D ABG HCO3 15 L 15 L 21 ABG O2 Saturation 100 H 100 H 100 H ABG Base Excess -14 L -12 L -4 L VBG pH VBG pCO2 VBG pO2 VBG Base Excess 12/25/24 12/25/24 12/26/24 15:59 19:55 04:10 ABG pH 7.41 7.41 7.36 ABG pCO2 37 39 37 ABG pO2 128 H D 123 H 99 D ABG HCO3 23 24 21 ABG O2 Saturation 100 H 99 H 98 ABG Base Excess -1 0 -4 L VBG pH VBG pCO2 VBG pO2 VBG Base Excess 12/27/24 12/27/24 12/28/24 04:08 09:45 04:14 ABG pH 7.47 H D 7.42 7.39 ABG pCO2 36 41 45 ABG pO2 82 L 97 114 H ABG HCO3 26 27 H 27 H ABG O2 Saturation 98 99 H 99 H ABG Base Excess 2 2 2 VBG pH VBG pCO2 VBG pO2 VBG Base Excess 12/29/24 12/30/24 12/31/24 04:30 04:50 04:20 ABG pH 7.38 7.37 7.39 ABG pCO2 46 47 45 ABG pO2 109 H 121 H 83 D ABG HCO3 27 H 27 H 27 H ABG O2 Saturation 99 H 99 H 97 ABG Base Excess 1 1 2 VBG pH VBG pCO2 VBG pO2 VBG Base Excess 01/01/25 04:38 ABG pH 7.41 ABG pCO2 47 ABG pO2 100 ABG HCO3 30 H ABG O2 Saturation 99 H ABG Base Excess 5 H VBG pH VBG pCO2 VBG pO2 VBG Base Excess Quality Measures Quality Measures VTE prophylaxis Assessment & Plan Assessment Current Active Medications: Generic Name Dose Route Start Last Admin Trade Name Freq PRN Reason Stop Dose Admin Acetaminophen 650 mg 01/01/25 08:46 Acetaminophen Ginny 325 Mg/10 Ml Udc GT 01/21/25 17:08 Q6H PRN Pain 1-3 and/or Fever >100.1 Albuterol/Ipratropium 3 ml 12/23/24 09:36 Albuterol/Ipratropium (Duoneb) Rt Ginny 3 Ml Nebu INH 01/22/25 07:44 Q8HRRT PRN wheezing Clotrimazole 0 gm 12/23/24 09:00 01/01/25 08:20 Clotrimazole Cr 1% 30 Gm Tube TOP 01/22/25 08:59 1 applicatio BID TRACY Administration Dextrose 25 ml 12/22/24 17:09 12/25/24 23:07 Dextrose 50%-Water Inj 50 Ml Syringe IV 01/21/25 17:08 25 ml Q15MIN PRN Administration BG 50-70 responsive npo pt Dextrose 50 ml 12/22/24 17:09 12/25/24 14:03 Dextrose 50%-Water Inj 50 Ml Syringe IV 01/21/25 17:08 50 ml Q15MIN PRN Administration BG <50 OR BG <70 & pt unresponsive Docusate Sodium 100 mg 01/01/25 08:43 01/01/25 08:44 Docusate Sod Liqd 100 Mg/10 Ml Udc GT 01/27/25 09:14 100 mg BID TRACY Administration Protocol Gabapentin 100 mg 01/01/25 08:46 01/01/25 08:47 Gabapentin 100 Mg Capsule GT 01/30/25 20:59 100 mg BID TRACY Administration Glucagon 1 mg 12/22/24 17:09 Glucagon Inj 1 Mg Vial IM Q15MIN PRN BG <70, and no IV access Heparin Sodium (Porcine) 7,500 unit 12/23/24 14:00 12/29/24 05:12 Heparin Sod Inj 5000 Unit/Ml Vial SC 01/06/25 13:59 7,500 unit On Hold: 12/29/24 10:17 Q8HR TRACY Administration Heparin Sodium (Porcine) 3,000 unit 12/27/24 12:35 12/31/24 16:29 Heparin Sod Inj 1000 Unit/Ml Vial 10 Ml INDWELLCAT 01/10/25 12:34 3,000 unit PRN PRN Administration DIALYSIS Hydromorphone HCl 2 mg 01/01/25 07:48 Hydromorphone Inj 2 Mg/Ml Vial IVP 01/05/25 11:01 Q4HR PRN PAIN SCALE 4-10(Mod-Sev) Propofol 1,000 mg in 100 mls @ 4.722 mls/hr 12/24/24 16:53 01/01/25 08:48 Diprivan Ivpb IV 01/23/25 16:52 0 mcg/kg/min .[id number] PRN 0 mls/hr Per Protocol Titration Protocol 5 MCG/KG/MIN Fentanyl Citrate 2,500 mcg in 250 mls @ 20 mls/hr 12/29/24 17:41 01/01/25 09:08 Sublimaze Inj 2,500 Mcg/250 Ml Bag IV 01/03/25 17:40 100 mcg/hr .[id number] PRN 10 mls/hr PER PROTOCOL Titration Protocol 200 MCG/HR Ceftriaxone Sodium 2 gm/ 50 mls @ 100 mls/hr 12/30/24 09:23 01/01/25 08:24 Sodium Chloride IV 01/02/25 09:22 100 mls/hr QDAY TRACY Administration Protocol Amiodarone HCl/Dextrose 360 mg in 200 mls @ 16.667 mls/hr 12/31/24 19:23 01/01/25 07:51 Nexterone Ivpb IV 01/01/25 19:22 16.667 mls/hr .Q12H TRACY Administration Insulin Degludec 10 unit 01/01/25 09:00 01/01/25 08:35 Insulin Degludec 5 Unit/0.05 Ml (Per 5 Units) SC 01/31/25 08:59 10 unit QDAY TRACY Administration Ondansetron HCl 4 mg 12/22/24 17:09 Ondansetron Inj 2 Mg/Ml Inj 2 Ml IVP 01/21/25 17:08 Q6H PRN NAUSEA OR VOMITING Protocol Oxycodone/Acetaminophen 1 tab 01/01/25 08:42 Oxycodone/Apap 5/325 Tablet GT 01/05/25 11:59 Q6HR TRACY Pantoprazole Sodium 40 mg 12/25/24 11:15 01/01/25 08:24 Pantoprazole Inj 40 Mg Vial IVP 01/24/25 11:14 40 mg QDAY TRACY Administration Pharmacy Consult 1 each 12/23/24 11:15 Pharmacy Renal Dose Adjustment 1 Ea XX 01/22/25 11:14 PRN PRN CONSULT Sennosides 8.8 mg 01/01/25 08:45 Sennosides Syrup 8.8 Mg/5 Ml Udc GT 01/21/25 17:08 QDAY PRN constipation Protocol Plan Patient is a 54-year-old female with past medical history of IDDM2, bilateral lower limb lymphedema, lipedema, asthma, epilepsy, morbid obesity, wheelchair- bound for 9 years, was brought to the ED on 12/22/24 for left lower extremity pain and clear cirrhosis fluid oozing. Patient was admitted to the ICU for distributive shock. Cardiology team was consulted because of new onset A-fib with RVR and newly diagnosed CHF. #Newly diagnosed HFrEF (40-45%, 11/2024) #New onset A-fib with RVR likely induced by shock state #Streptococcus pyogenes bacteremia 2/ LLE cellulitis Patient presented with sepsis secondary to left leg cellulitis, her condition worsened to distributive shock. During her stay she developed A-fib with RVR, with no known hx of afib, we started the patient on amiodarone drip. Even though her body habitus echo was done and showed ejection fraction of 40 to 45%. With normal RV function. BNP was 204 which most likely skewed by patient obesity. Troponin was negative. 12/22/24 Echo showed Over all poor images due to body habitus and technically difficult study. Normal left ventricular size and function.Stage I diastolic dysfunction. Estimated ejection fraction is 40-45%. Normal right ventricular size and function. RVSP 39 mm Hg with RAP 8. Mild pulmonary HTN Trace MR and Mild TR. TDS due to patient morbid and laying on supine view, couldn't move. (patient had open wounds under breast) 12/25/2024 patient was started on CRRT due to worsening lactic acidosis and kidney function, blood culture growing Streptococcus pyogenes. 12/27/2024, Amiodrine drip was stopped by the primary team as the patient converted to sinus rhythm. Patient was having tachycardia heart rate of 113 however it was regular sinus. 12/31/24, EKG showed atrial flutter with RVR with 2:1 AV block. Restarted on amiodarone drip 0.5 mg/min around 1PM however patient continues to be in afib w RVR. Plan ? Repeat EKG 01/01 shows patient continues to be in atrial flutter with RVR with 2: 1 AV block. QTc noted to be 556 on EKG however taking consideration the QRS is widened, QTc is actually likely around 470 - 480 calculated by [facility] formula (HR 135, QT interval 8 boxes). - Increase amiodarone drip to 1 mg/min for better rate control - Start metopropol tartrate 12.5mg q8hr for additional rate and BP control. Uptitrate as BP permits. Will continue to work towards GDMT management as tolerated. ? Due to patient condition no invasive cardiac procedure will be done at this time ? Strict in and out ? Keep potassium and magnesium above 4 and 2 respectively within normal range. This will also help decrease QTc. Her BUN is elevated at 42 as well as hemoglobin is dropping down over the last couple of days which is contributing to the RVR. Patient mostly has upper GI bleed mostly secondary to oozing of blood from the possible stress-induced gastritis. Recommended primary team to obtain stool guaiac has been GI consult. Discussed this with the critical care attending #Distributive shock most likely secondary to sepsis #Sepsis secondary to left leg cellulitis #Toxic shock syndrome #Lower extremity lymphedema S/p IgG immunoglobulin Plan ? Primary team switched from clindamycin and meropenem, now on IV CFX. ? Stable off norepinephrine drip and vasopressin for distributive shock, only on PRN #History of seizure disorder Patient on antiseizure meds #Concern of DIC #History of COPD Supplemental oxygen, BiPAP as needed, DuoNebs #Elevated bilirubin, elevated AST, hypoalbuminemia Secondary to toxic shock syndrome versus septic shock Follow primary team recommendations #Lactic acidosis improving s/p CRRT #YOU #Non-anion gap metabolic acidosis Thank you for your consultation, please do not hesitate to reach out if you have any question or concern Patient plan of care was discussed with the attending physician, Dr. Chapa. Obdulia Evans, PGY-1 Attending Provider Attestation/Addendum I have personally seen and examined the patient separately on the above date of service and discussed the plan of care with the resident. I reviewed the resident Dr. Obdulia Evans consultation progress note and agree with the resident findings and plan in the note above and have also edited the documentation to reflect my findings and plan. Alex Chapa M.D. Interventional Cardiology
[2025-01-01] MEDS: METOPROLOL TARTRATE INJ 1 MG/ML AMP 5 ML 5 MG IVP ×2 (09:44→10:06)
--- NOTE | 2025-01-01 09:59 | EKG_ITS ---
[facility] Test Date: 2025-01-01 Pat Name: ROSELINE MCGUIRE Department: Room: S257A Gender: Female Boat Dispatcher: YONI : [id number] Requested By: Sanjeev Gonzáles Order Number: [id number] Reading MD: Sanjeev Gonzáles Measurements Intervals [place] Rate: 135 P: SD: QRS: -5 QRSD: 161 T: -79 QT: 370 QTc: 556 Interpretive Statements ATRIAL FLUTTER/TACHYCARDIA WITH RAPID VENTRICULAR RESPONSE RIGHT BUNDLE BRANCH BLOCK MODERATE T-WAVE ABNORMALITY, CONSIDER INFERIOR ISCHEMIA Compared to ECG 12/31/2024 08:20:46 No significant changes /store/S0/[id number].pdf
--- NOTE | 2025-01-01 10:00 | XR_ITS ---
Examination: AP chest single view Technique one AP portable supine chest single view Date and time: January 01, 2025, 10:15 AM, comparison 12/28/2024 Indications: Hypoxic respiratory failure, postintubation Findings: Atelectasis versus mild pneumonia at the lung bases Endotracheal tube tip 14 mm above doreen Right internal jugular central line tip satisfactory position as well as left internal jugular dialysis catheter Mild prominence cardiac contour Orogastric tube in stomach, the tip is below the level of the film Impression: Atelectasis versus mild pneumonia both bases, the appearance should be clinically correlated
--- NOTE | 2025-01-01 10:10 | PD.RESEVENT ---
Documentation for date of: 01/01/25 Event Note Event Note: Today patient's health care marketing manager, Rosalva, and his girlfriend met in the ICU with the patient's team for goals of care conversation. The daughter, who is the patient's decision maker, attended via face time. Patient's daughter was informed of what has happened to the patient during the hospitalization. The daughter was shown limited physical exam findings to help her understand better what had happened and resulted to her mother since she did not seem aware. The daughter was informed that the patient will likely need amputation above the L knee, part of the R foot and part of her R fingers due to tissue. Daughter was also explained that the patient can only be on the ventilator for 14 days and she is currently on day 10. We explained how we are trying to get the patient off of mechanical ventilation and if unable to, then patient would need to have a tracheostomy and peg tube placed. It was explained the risks that come with these procedures and the likely outcome of her poor quality of life if these processes were to take place. Daughter was informed that comfort care is also another option. Patient's daughter needed some time to process the discussion and we planned to have the discussion of comfort care or not in a few days. Patient plan of care was discussed with the attending physician, Dr. Donovan & senior resident Dr. Nivia Dye MD PGY-1
[2025-01-01] MEDS: INSULIN DEGLUDEC 5 UNIT/0.05 ML (PER 5 UNITS) SC ×2 (10:16→12:19)
--- NOTE | 2025-01-01 10:20 | XR_ITS ---
Examination: Abdomen AP single view Technique: AP portable supine abdomen, single view Exam date and time: January 01, 2025, 1019 hrs. Indications: Abdominal distention this week, comparison 12/28/2024 Findings: Moderately air distended colon No obstruction Orogastric tube tip distal stomach No free air Impression: Moderate colonic ileus, no obstruction
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
[2025-01-01] MEDS: POTASSIUM CHLORIDE 10% 20 MEQ/15 ML UDC 40 MEQ NG (13:35)
[2025-01-01] MEDS: HYDROmorphone INJ 2 MG/ML VIAL IVP (13:56)
[2025-01-01] MEDS: HEPARIN SOD INJ 1000 UNIT/ML VIAL 10 ML 3000 UNIT INDWELLCAT (16:03)
[2025-01-01 16:42] LABS: Hematocrit 26.2 % (36.0-46.0)
[2025-01-01 16:53] LABS: Hemoglobin 8.3 g/dL (12.0-16.0)
[2025-01-01] MEDS: INSULIN LISPRO (AdmeLOG) 1 UNIT/0.01 ML UNIT SC (17:17)
[2025-01-01] MEDS: DIGOXIN INJ 0.25 MG/ML AMP 2 ML IVP (18:12)
[2025-01-01] MEDS: AMIODARONE 360 MG IVPB 360 MG/200 ML BAG 33.333 MG IV (20:29)
[2025-01-02] VITALS (55 sets, daily range): BP systolic 88–173; BP diastolic 66–111; PULSE 99–140; RESP 12–33; TEMP 35.9–36.3; O2SAT 93–100; BMI 62.8
[2025-01-02] MEDS: INSULIN LISPRO (AdmeLOG) 1 UNIT/0.01 ML UNIT SC ×4 (00:25→17:39)
[2025-01-02] MEDS: AMIODARONE 360 MG IVPB 360 MG/200 ML BAG 33.333 MG IV ×4 (02:07→20:16)
[2025-01-02] MEDS: HYDROmorphone INJ 2 MG/ML VIAL IVP (04:15)
[2025-01-02 04:17] LABS: Allen Test Performed/OK; Base Excess 4 (-3-3); HCO3 29 mEq/L (20-26); Inspired Oxygen, FIO2 25 %; O2 Saturation 99 % (91-98); PCO2 45 mmHg (32.0-48.0); PO2 92 mmHg (83-108); Puncture Site Right Radial; pH, Arterial 7.43 (7.35-7.45)
[2025-01-02 05:29] LABS: Basophils # (Auto) 0.1 Thou/mm3 (0.0-0.2); Basophils % (Auto) 0 % (0-2.5); Eosinophils # (Auto) 0.0 Thou/mm3 (0.0-0.5); Eosinophils % (Auto) 0 % (0-10); Hematocrit 23.7 % (36.0-46.0); Immature Granulocytes Auto 4.16 Thou/mm3 (0.00-0.00); Lymphocytes # (Auto) 2.3 Thou/mm3 (1.0-4.8); Lymphocytes % (Auto) 11 % (10-50); Mean Corpuscular HGB Conc 32.1 g/dl (31.0-37.0); Mean Corpuscular Hemoglobin 26.7 pg (25.0-35.0); Mean Corpuscular Volume 83 fL (80-100); Monocytes # (Auto) 1.1 Thou/mm3 (0.0-0.8); Monocytes % (Auto) 5 % (0-12); Neutrophils # (Auto) 13.2 Thou/mm3 (1.8-7.7); Neutrophils % (Auto) 63 % (37-80); Nucleated Red Blood Cell # 0.45 Thou/mm3 (0.00-0.00); Nucleated Red Blood Cell % 2 /100 WBC (0); Platelet Count 86 Thou/mm3 (140-440); RDW Standard Deviation 48.1 fL (36.4-46.3); Red Blood Count 2.85 Miln/mm3 (4.00-5.20); White Blood Count 20.9 Thou/mm3 (3.6-11.0)
[2025-01-02 05:30] LABS: Hemoglobin 7.6 g/dL (12.0-16.0)
[2025-01-02 06:00] LABS: Alanine Aminotransferase 23 U/L (10-49); Albumin, Serum 2.9 gm/dL (3.5-5.0); Albumin/Globulin Ratio 0.8 (1.2-2.2); Alkaline Phosphatase 240 U/L (46-116); Anion Gap 9 (7-16); Aspartate Amino Transferase 21 U/L (0-34); BUN/Creatinine Ratio 54 Ratio (12-20); Bilirubin,Total 0.6 mg/dL (0.3-1.2); Blood Urea Nitrogen 54 mg/dL (9-23); Calcium 8.2 mg/dL (8.3-10.6); Calcium (Corrected) 9.1 mg/dL (8.5-10.1); Carbon Dioxide 28.4 mMol/L (20.0-31.0); Chloride 98 mMol/L (98-107); Creatinine (Component) 1.0 mg/dL (0.6-1.3); Digoxin 0.8 ng/mL (0.8-2.0); Estimated Creatinine Clearance 90.1 mL/min (>60); Globulin 3.5 gm/dL (2.3-3.5); Glucose 228 mg/dL (74-106); Magnesium 1.8 mg/dL (1.6-2.6); Osmolality,Calculated 291 (275-295); Phosphorous 4.1 mg/dL (2.4-5.1); Potassium 4.3 mMol/L (3.4-5.1); Sodium 135 mMol/L (136-145); Total Protein 6.4 gm/dL (5.7-8.2); eGFR > 60 See Note
[2025-01-02] MEDS: DOCUSATE SOD LIQD 100 MG/10 ML UDC GT ×2 (08:18→20:16)
[2025-01-02] MEDS: GABAPENTIN 100 MG CAPSULE GT ×2 (08:18→20:40)
[2025-01-02] MEDS: INSULIN DEGLUDEC 5 UNIT/0.05 ML (PER 5 UNITS) 20 UNIT SC (08:18)
[2025-01-02] MEDS: CLOTRIMAZOLE CR 1% 30 GM TUBE TOP ×2 (08:21→20:18)
[2025-01-02] MEDS: Magnesium Sulfate 2 GM Ivpb 2 GM/50 ML BAG IV (08:21)
--- NOTE | 2025-01-02 08:31 | XR_ITS ---
Examination: CT brain head without contrast. 2-D sagittal coronal reconstructions Date and time of exam:January 02, 2025, 10:24 AM Indications: Nonresponsive today CTDI: vol (mGy):61.6 DLP: (mGycm):1258 Technique: Multiple CT axial sections of the brain have been obtained, 5 mm slice thickness. Contrast has not been administered. 2-D sagittal, coronal reconstructions have been obtained Low dose protocols were performed. One or more of the following dose reduction techniques were used; automated exposure control, adjustment of the mA and/or KV according to patient size, use of iterative reconstruction technique. Findings: No significant ventricular enlargement. Intra-axial or extra-axial hemorrhage density is not seen. No mass effect or midline shift Basal cisterns are not remarkable. Fourth ventricle is midline. Cranial vault intact. Impression: Negative for acute hemorrhage, mass effect or midline shift As clinically warranted, brain MRI follow-up would best assess for anoxic/ischemic change
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
[2025-01-02 10:40] LABS: Hematocrit 22.0 % (36.0-46.0)
[2025-01-02 10:59] LABS: Hemoglobin 6.9 g/dL (12.0-16.0)
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
[2025-01-02] MEDS: PANTOPRAZOLE/NS 80MG IV PREMIX 80 MG/100 ML BAG 400 MG IV (11:45)
--- NOTE | 2025-01-02 11:45 | PD.RESPRO ---
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 25 u SC qday -Started Lispro sliding scale q6hr -Tube feeds of 60 mL / hr and 30 mL/hr flushes if no IVF -Blood sugar check q6HR Heme #Thrombocytopenia (improving) Concern for drug induced vs reactive to acute illness Dx: -PLT 64, improving without transfusions. 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 s/p KCentra 5,000 U x 1 on 12/23/24 (protein C concentrates [Ceprotin], which is the [id number] treatment for this diagnosis, is unavailable here) Dx: -Punch biopsy (histopathological confirmation of purpura fulminans diagnosis) pending (contacted lab 12/31, confirmed it is still pending as a send out) #Leukocytosis (improving) #Leukemoid reaction Patient's WBC continue to be elevated In the setting of ongoing toxic shock syndrome, infection, and steroid medications However, has continued to uptrend while on antibiotics for treatment of toxic shock syndrome Currently suspect this is a benign leukemoid reaction in the setting of acute illness DDx: occult infection due to bacterial (Clostridioides difficile from clindamycin use) or commensal fungal overgrowth Dx: -WBC 33.6 (53) -Patient remains afebrile -Blood cx / final grew Coag negative Staph (12/28) #Anemia, microcytic Likely due to MALINA, chart review reveals chronic. Patient hemoglobin is trending downwards over the course of hospital stay. Significant downtrend over past 3 days from approximately 10 to 6.9. Concern for GI bleed in setting of critically ill patient, notably BUN remains elevated as kidney function improves. Dx: -Hgb 6.9 Rx: -Will continue to monitor hgb and for signs of bleeding. -Transfusing 2 units PRBC, follow-up H&H -GI consulted, plan for EGD today #Coagulopathy 2/2 toxic shock syndrome - possible DIC, resolving Patient initially had elevated INR, elevated D-Dimer, and elevated fibrinogen early in her ICU admission which suggested the presence of low-level DIC Dx: -Elevated INR, elevated D-Dimer, and elevated fibrinogen suggestive of low level DIC Rx: -Consider trending coagulation panels RRx: -PT, APTT, fibrinogen, and D-dimer remain elevated at this time but stable ID #Cellulitis #Streptococcus pyogenes bacteremia #Chronic bilateral lower extremity lymphedema Likely source of sepsis and precipitating toxic shock syndrome As mentioned earlier in the Cardiovascular section, clindamycin is unique as an antibiotic for treatment of TSS in that it binds to the 50S ribosomal subunit of bacteria and directly suppresses synthesis of exotoxins like Toxic Shock Syndrome Toxin-1 (TSST-1) and enterotoxins produced by Streptococcus pyogenes Timeline of antibiotic regimen detailed below: 1. IV vancomycin dosed by pharmacy [12/22-12/25, discontinued due to MRSA(-)] 2. IV clindamycin 600 mg q8HR [12/22-12/30, dc'd due to concern for Drug induced Thrombocytopenia and no longer needed for TSS] 3. IV cefepime 2 gm q12HR [12/22-12/24, discontinued after TSS became favored diagnosis] 4. IV meropenem 1000 mg q8HR [12/24-12/30, dc'd due to possible Drug induced Thrombocytopenia] 5. IV Ceftriaxone 2 g qday [12/30 - 01/01 for total ABX course of 10 days] Dx: -12/22 BCx (04/01) grew zaman-sensitive Streptococcus pyogenes (Group A Streptococcus) -12/31 Final Bcx show Coag Negative Staph Rx: -Continuing Wound care management -Surgery consulted for evaluation for debridement and/or amputation Disposition: ICU due to continued need for pressors/intubation (weaning off sedation currently) DVT prophylaxis: Heparin 7500 q8HR (held due to concern of GI bleed) GI prophylaxis: IV Protonix infusion Diet: Tube Feeds @ 60 mL / hr with 30 cc/hr water flushes (held pending EGD) Pitts: Present Lines: Peripheral IV, Central IV, arterial line Antibiotics: None CODE STATUS: FULL (consider recommending DNR/DNI to Decision Maker; GOC discussion had on 01/01 and tentatively planned again 01/03) Patient plan of care was discussed with the attending physician, Dr. Donovan. Jamar Schneider MD PGY?2 Attending Provider Attestation/Addendum Patient seen and examined resident. Agree with above. 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 No significant change in her physical exam. She has significant areas of necrosis on her legs as well as the digits of her right hand. Goals of care discussed with daughter via phone yesterday and her caregiver was also present. The daughter was shown the extensive injuries that her mother has and discussion was held that in the near future if she does not wake up determination regarding proceeding with trach and PEG or comfort care will be needed. Her urinary output has continued to improve she did undergo dialysis with volume removal she was transfused 1 unit of PRBCs. Case discussed with ICU team Discussed with nephrology Labs, imaging and records reviewed Approximately 38ccmin required for evaluation, exam, review, intervention, discussion and formulation of plan of care for this critically ill patient at high risk for further and ongoing decompensation
[2025-01-02] MEDS: INSULIN DEGLUDEC 5 UNIT/0.05 ML (PER 5 UNITS) SC (11:48)
[2025-01-02] MEDS: PANTOPRAZOLE/NS 80MG IV PREMIX 80 MG/100 ML BAG 10 MG IV ×2 (12:06→20:17)
--- NOTE | 2025-01-02 12:46 | PC.SS ---
Update: Patient remains intubated/sedated. Not receiving pressor support. Dr. Stiles consulting.Wound Care consulting. Patient had CT scan today. Patient is receiving IV Fluids. Patient will have MRI tomorrow.
--- NOTE | 2025-01-02 13:10 | PC.LAC ---
infusing 2 PRBCS simultaneously , different IV sites utilized for each one
--- NOTE | 2025-01-02 14:52 | EKG_ITS ---
[facility] Test Date: 2025-01-02 Pat Name: ROSELINE MCGUIRE [facility] Gender[facility] Female Pourer: PHE : 1970 Requested By: Jamar Dietrich Order Number: [id number] Reading MD: Jamar Dietrich Measurements Intervals [place] Rate: 129 P: 221 TX: 187 QRS: -11 QRSD: 153 T: -66 QT: 361 QTc: 529 Interpretive Statements ECTOPIC ATRIAL TACHYCARDIA RIGHT BUNDLE BRANCH BLOCK MODERATE T-WAVE ABNORMALITY, CONSIDER INFERIOR ISCHEMIA Compared to ECG 01/01/2025 10:13:21 Atrial flutter no longer present T-wave abnormality still present Possible ischemia still present /store/S0/[id number]/ecg/[id number].pdf
[2025-01-02 16:55] LABS: Hematocrit 27.6 % (36.0-46.0); Hemoglobin 8.9 g/dL (12.0-16.0)
--- NOTE | 2025-01-02 18:22 | PD.IMCONS ---
HPI Data of Consult Requesting Physician: Tawanna Donovan MD Primary Care Provider: Lee Singer MD Consult Narrative Reason for consult: H/H 6.920.1 History of present illness: No history is obtainable as patient is mechanically ventilated with endotracheal intubation History from the chart review and also talking to the internal medicine team Patient has been here since 12/22/2024 when she presented with worsening pedal edema and her foot had gotten caught in the bed the night before She has necrosis of the distal digits and surgery is in consultation for possible amputation She has been mechanically ventilated for a while and has history of encephalopathy with a negative CT scan of the head done today atrial flutter fibrillation on amiodarone drip cc:: cc: Tawanna Donovan MD Review of Systems Review of Systems ROS Unobtainable: unobtainable due to medical condition Past Medical History Surgical History OTHER SURGICAL HX: As in the history of present illness Meds Home Medications and Allergies Home Medications ?Medication ?Instructions ?Recorded ?Confirmed ?Type albuterol sulfate 90 mcg/actuation 2 puff inhalation Q4H PRN 12/23/24 12/23/24 History aerosol inhaler shortness of breath or wheezing atorvastatin 40 mg tablet 40 mg PO ONCE HS 12/23/24 12/23/24 History docusate sodium 100 mg capsule 100 mg PO DAILY PRN constipation 12/23/24 12/23/24 History ergocalciferol (vitamin D2) 1,250 50,000 unit PO .once a week 12/23/24 12/23/24 History mcg (50,000 unit) capsule ferrous sulfate 325 mg (65 mg 325 mg PO DAILY 12/23/24 12/23/24 History iron) tablet (FeroSul) insulin aspart U-100 100 unit/mL 20 unit subcut .with meals 12/23/24 12/23/24 History (3 mL) subcutaneous pen losartan 50 mg tablet 50 mg PO DAILY 12/23/24 12/23/24 History omeprazole 20 mg capsule,delayed 20 mg PO HS 12/23/24 12/23/24 History release tretinoin 0.025 % topical cream 1 applic topical DAILY UD 12/23/24 12/27/24 History Allergies Allergy/AdvReac Type Severity Reaction Status Date / Time aspirin Allergy Severe Difficulty Verified 04/18/22 18:45 Breathing codeine Allergy Severe Difficulty Verified 04/18/22 18:45 Breathing levetiracetam (From [facility]) Allergy Severe Difficulty Verified 04/18/22 18:45 Breathing morphine Allergy Severe Difficulty Verified 04/18/22 18:45 Breathing Penicillins Allergy Severe Difficulty Verified 04/18/22 18:45 Breathing Exam Vital Signs Temp Pulse Resp BP Pulse Ox O2 Del Method O2 Flow Rate 96.6 F L 115 H 21 H 112/81 99 Mechanical Ventilation 30 01/02/25 16:00 01/02/25 18:13 01/02/25 18:13 01/02/25 18:13 01/02/25 18:13 01/01/25 16:00 12/28/24 17:00 FiO2 01/02/25 18:13 Constitutional Comments: Chronically ill-appearing Routine Respiratory Exam Comments: Mechanically ventilated Results Labs 01/03/25 15:32 01/03/25 04:40 Labs: Short CBC 01/02/25 01/02/25 01/02/25 Range/Units 05:00 09:55 16:30 WBC 20.9 H D (3.6-11.0) Thou/mm3 Hgb 7.6 L 6.9 L* 8.9 L D (12.0-16.0) g/dL Hct 23.7 L 22.0 L 27.6 L (36.0-46.0) % Plt Count 86 L D (140-440) Thou/mm3 BMP 01/02/25 05:00 Sodium 135 L Potassium 4.3 D Chloride 98 Carbon Dioxide 28.4 BUN 54 H Creatinine 1.0 Glucose 228 H Calcium 8.2 L Liver Function 01/02/25 Range/Units 05:00 Total Bilirubin 0.6 (0.3-1.2) mg/dL AST 21 (0-34) U/L ALT 23 (10-49) U/L Alkaline Phosphatase 240 H D (46-116) U/L Albumin 2.9 L (3.5-5.0) gm/dL ABG Interpretation ABG results: 12/22/24 12/22/24 12/23/24 16:49 23:40 13:05 ABG pH 7.39 7.29 L D ABG pCO2 33 37 ABG pO2 60 L 73 L ABG HCO3 20 18 L ABG O2 Saturation 92 94 ABG Base Excess -5 L -8 L VBG pH 7.35 VBG pCO2 37 VBG pO2 27 VBG Base Excess -5 L 12/24/24 12/24/24 12/24/24 08:54 17:12 17:19 ABG pH 7.25 L 7.16 L* ABG pCO2 34 36 ABG pO2 166 H D 127 H D ABG HCO3 15 L 13 L ABG O2 Saturation 100 H 99 H ABG Base Excess -11 L -15 L VBG pH 7.12 L VBG pCO2 42 VBG pO2 44 VBG Base Excess -15 L 12/24/24 12/24/24 12/25/24 19:45 22:40 04:47 ABG pH 7.10 L* 7.21 L D 7.36 D ABG pCO2 50 H D 38 D 37 ABG pO2 249 H D 249 H 191 H D ABG HCO3 15 L 15 L 21 ABG O2 Saturation 100 H 100 H 100 H ABG Base Excess -14 L -12 L -4 L VBG pH VBG pCO2 VBG pO2 VBG Base Excess 12/25/24 12/25/24 12/26/24 15:59 19:55 04:10 ABG pH 7.41 7.41 7.36 ABG pCO2 37 39 37 ABG pO2 128 H D 123 H 99 D ABG HCO3 23 24 21 ABG O2 Saturation 100 H 99 H 98 ABG Base Excess -1 0 -4 L VBG pH VBG pCO2 VBG pO2 VBG Base Excess 12/27/24 12/27/24 12/28/24 04:08 09:45 04:14 ABG pH 7.47 H D 7.42 7.39 ABG pCO2 36 41 45 ABG pO2 82 L 97 114 H ABG HCO3 26 27 H 27 H ABG O2 Saturation 98 99 H 99 H ABG Base Excess 2 2 2 VBG pH VBG pCO2 VBG pO2 VBG Base Excess 12/29/24 12/30/24 12/31/24 04:30 04:50 04:20 ABG pH 7.38 7.37 7.39 ABG pCO2 46 47 45 ABG pO2 109 H 121 H 83 D ABG HCO3 27 H 27 H 27 H ABG O2 Saturation 99 H 99 H 97 ABG Base Excess 1 1 2 VBG pH VBG pCO2 VBG pO2 VBG Base Excess 01/01/25 01/02/25 04:38 04:13 ABG pH 7.41 7.43 ABG pCO2 47 45 ABG pO2 100 92 ABG HCO3 30 H 29 H ABG O2 Saturation 99 H 99 H ABG Base Excess 5 H 4 H VBG pH VBG pCO2 VBG pO2 VBG Base Excess Assessment and Plan Additional Assessment & Plan Additional Plan: # Drop in hemoglobin hematocrit etiology uncertain possible occult GI bleeding Consent will be obtained for possible fiberoptic esophagogastroduodenoscopy with possible biopsy therapeutic intervention under intravenous moderate sedation if negative will consider a fiberoptic colonoscopy After GoLytely prep # Other medical problems include metabolic encephalopathy Diabetes mellitus type 2 Atrial flutter/fibrillation on amiodarone drip Necrosis of the distal toes Mechanically ventilated Thank you very much for the opportunity to participate in the care of this patient PROCEDURES: Arterial Line Size (Gauge): 20
[2025-01-02] MEDS: NA SU/NAHCO3/KC/PEG (Golytely) 4,000 ML BTL 4000 ML PO (20:18)
[2025-01-03] VITALS (35 sets, daily range): BP systolic 94–140; BP diastolic 65–99; PULSE 85–130; RESP 11–54; TEMP 35.8–36.6; O2SAT 88–100; BMI 63.6
[2025-01-03] MEDS: AMIODARONE 360 MG IVPB 360 MG/200 ML BAG 33.333 MG IV ×4 (02:25→21:49)
[2025-01-03 05:00] LABS: Base Excess 7 (-3-3); HCO3 31 mEq/L (20-26); Inspired Oxygen, FIO2 35 %; O2 Saturation 100 % (91-98); PCO2 43 mmHg (32.0-48.0); PO2 131 mmHg (83-108); pH, Arterial 7.47 (7.35-7.45)
[2025-01-03 05:13] LABS: Allen Test Performed/OK; Puncture Site Left Radial
[2025-01-03 05:40] LABS: Basophils # (Auto) 0.1 Thou/mm3 (0.0-0.2); Basophils % (Auto) 1 % (0-2.5); Eosinophils # (Auto) 0.0 Thou/mm3 (0.0-0.5); Eosinophils % (Auto) 0 % (0-10); Hematocrit 28.1 % (36.0-46.0); Hemoglobin 9.3 g/dL (12.0-16.0); Immature Granulocytes Auto 1.76 Thou/mm3 (0.00-0.00); Lymphocytes # (Auto) 1.3 Thou/mm3 (1.0-4.8); Lymphocytes % (Auto) 11 % (10-50); Mean Corpuscular HGB Conc 33.1 g/dl (31.0-37.0); Mean Corpuscular Hemoglobin 27.8 pg (25.0-35.0); Mean Corpuscular Volume 84 fL (80-100); Monocytes # (Auto) 0.8 Thou/mm3 (0.0-0.8); Monocytes % (Auto) 7 % (0-12); Neutrophils # (Auto) 7.7 Thou/mm3 (1.8-7.7); Neutrophils % (Auto) 66 % (37-80); Nucleated Red Blood Cell # 0.11 Thou/mm3 (0.00-0.00); Nucleated Red Blood Cell % 1 /100 WBC (0); Platelet Count 82 Thou/mm3 (140-440); RDW Standard Deviation 47.1 fL (36.4-46.3); Red Blood Count 3.35 Miln/mm3 (4.00-5.20); White Blood Count 11.6 Thou/mm3 (3.6-11.0)
[2025-01-03 06:10] LABS: Alanine Aminotransferase 24 U/L (10-49); Albumin, Serum 2.9 gm/dL (3.5-5.0); Albumin/Globulin Ratio 0.8 (1.2-2.2); Alkaline Phosphatase 208 U/L (46-116); Anion Gap 7 (7-16); Aspartate Amino Transferase 26 U/L (0-34); BUN/Creatinine Ratio 49 Ratio (12-20); Bilirubin,Total 0.7 mg/dL (0.3-1.2); Blood Urea Nitrogen 39 mg/dL (9-23); Calcium 8.2 mg/dL (8.3-10.6); Calcium (Corrected) 9.1 mg/dL (8.5-10.1); Carbon Dioxide 30.8 mMol/L (20.0-31.0); Chloride 99 mMol/L (98-107); Creatinine (Component) 0.8 mg/dL (0.6-1.3); Estimated Creatinine Clearance 112.4 mL/min (>60); Globulin 3.7 gm/dL (2.3-3.5); Glucose 135 mg/dL (74-106); Magnesium 2.0 mg/dL (1.6-2.6); Osmolality,Calculated 285 (275-295); Phosphorous 3.5 mg/dL (2.4-5.1); Potassium 4.3 mMol/L (3.4-5.1); Sodium 137 mMol/L (136-145); Total Protein 6.6 gm/dL (5.7-8.2); eGFR > 60 See Note
[2025-01-03] MEDS: PANTOPRAZOLE/NS 80MG IV PREMIX 80 MG/100 ML BAG 10 MG IV ×2 (06:34→15:43)
[2025-01-03] MEDS: GABAPENTIN 100 MG CAPSULE GT ×2 (08:28→21:50)
[2025-01-03] MEDS: DOCUSATE SOD LIQD 100 MG/10 ML UDC GT ×2 (08:28→21:50)
[2025-01-03] MEDS: CLOTRIMAZOLE CR 1% 30 GM TUBE TOP ×2 (08:29→21:49)
[2025-01-03] MEDS: INSULIN DEGLUDEC 5 UNIT/0.05 ML (PER 5 UNITS) 25 UNIT SC (08:29)
[2025-01-03] MEDS: HEPARIN SOD INJ 5000 UNIT/ML VIAL 7500 UNIT SC ×3 (08:30→21:50)
[2025-01-03] MEDS: NA SU/NAHCO3/KC/PEG (Golytely) 4,000 ML BTL 4000 ML GT (08:43)
--- NOTE | 2025-01-03 09:02 | XR_ITS ---
Examination: Upper stomach knee bilateral arterial Doppler sonographic analysis Date and time: January 03, 2025, 1213 hours INDICATIONS: Finger necrosis this month, diabetes history TECHNIQUE AND FINDINGS: Doppler sonographic images of the upper extremity arteries No elevation of peak systolic velocities No occlusive arterial disease IMPRESSION: No occlusive arterial disease noted
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
--- NOTE | 2025-01-03 10:02 | ESPR_ITS ---
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 remains elevated as kidney function improves. Dx: -Hemoglobin 9.2 after transfusion previous day -Pending bowel movement for eval of melena -GI consulted, plan for colonoscopy; EGD 01/02 showing gastritis & no bleeding. Rx: -2 units PRBC -Protonix infusion -GI consulted, appreciate recommendations -Follow-up on colonoscopy #Constipation, resolved Patient had a brown loose BM 01/03 Rx: -Abd XR 01/01 showed Moderate colonic ileus, no obstruction -Senna syrup via G-tube ordered -Active bowel sounds RRx: -If patient does not have bowel movement by tomorrow, consider enema #Isolated ALP elevation In the setting of ongoing toxic shock syndrome, AST/ALT were initially elevated, down trended to WNL. Alk phos has been steadily elevated, likely due to increased WBC. Alk phos downtrending Endocrine #Hyperglycemia Likely due to Steroid use. A1c 12/23/2024 of 5.6, previous one in system is from 2020 at 5.4. No hemoglobin A1c recorded in [facility] medical records actually meeting criteria for T2DM Dx: -Glucose 135, improving with current regimen Rx: -Increased Insulin Degludec to 25 u SC qday -Lispro sliding scale q6hr -Tube feeds of 60 mL / hr and 30 mL/hr flushes if no IVF (held for colonoscopy) -Blood sugar check q6HR Heme #Thrombocytopenia (improving) Concern for drug induced vs reactive to acute illness Dx: -PLT 82, improving without transfusions. 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 s/p KCentra 5,000 U x 1 on 12/23/24 (protein C concentrates [Ceprotin], which is the [id number] treatment for this diagnosis, is unavailable here) Dx: -Punch biopsy (histopathological confirmation of purpura fulminans diagnosis) pending (contacted lab 12/31, confirmed it is still pending as a send out) #Leukocytosis (improving) #Leukemoid reaction Patient's WBC continue to be elevated In the setting of ongoing toxic shock syndrome, infection, and steroid medications However, has continued to uptrend while on antibiotics for treatment of toxic shock syndrome Currently suspect this is a benign leukemoid reaction in the setting of acute illness DDx: occult infection due to bacterial (Clostridioides difficile from clindamycin use) or commensal fungal overgrowth Dx: -WBC 11.6 (33) -Patient remains afebrile -Blood cx 04/01 final grew Coag negative Staph (12/28) #Anemia, microcytic Likely due to MALINA, chart review reveals chronic. Patient hemoglobin is trending downwards over the course of hospital stay. Significant downtrend over past 3 days from approximately 10 to 6.9. Concern for GI bleed in setting of critically ill patient, notably BUN remains elevated as kidney function improves. Dx: -Hgb 9.3 post transfusion 2 units 01/02 Rx: -Will continue to monitor hgb and for signs of bleeding. -GI consulted, EGD 01/02, colonscopy planned #Coagulopathy 2/2 toxic shock syndrome - possible DIC, resolving Patient initially had elevated INR, elevated D-Dimer, and elevated fibrinogen early in her ICU admission which suggested the presence of low-level DIC Dx: -Elevated INR, elevated D-Dimer, and elevated fibrinogen suggestive of low level DIC Rx: -Consider trending coagulation panels RRx: -PT, APTT, fibrinogen, and D-dimer remain elevated at this time but stable ID #Cellulitis #Streptococcus pyogenes bacteremia #Chronic bilateral lower extremity lymphedema Likely source of sepsis and precipitating toxic shock syndrome As mentioned earlier in the Cardiovascular section, clindamycin is unique as an antibiotic for treatment of TSS in that it binds to the 50S ribosomal subunit of bacteria and directly suppresses synthesis of exotoxins like Toxic Shock Syndrome Toxin-1 (TSST-1) and enterotoxins produced by Streptococcus pyogenes Timeline of antibiotic regimen detailed below: 1. IV vancomycin dosed by pharmacy [12/22-12/25, discontinued due to MRSA(-)] 2. IV clindamycin 600 mg q8HR [12/22-12/30, dc'd due to concern for Drug induced Thrombocytopenia and no longer needed for TSS] 3. IV cefepime 2 gm q12HR [12/22-12/24, discontinued after TSS became favored diagnosis] 4. IV meropenem 1000 mg q8HR [12/24-12/30, dc'd due to possible Drug induced Thrombocytopenia] 5. IV Ceftriaxone 2 g qday [12/30 - 01/01 for total ABX course of 10 days] Dx: -12/22 BCx (04/01) grew zaman-sensitive Streptococcus pyogenes (Group A Streptococcus) -12/31 Final Bcx show Coag Negative Staph Rx: -Continuing Wound care management -Surgery consulted for evaluation for debridement and/or amputation Disposition: ICU due to continued need for intubation DVT prophylaxis: Heparin 7500 q8HR (held due to concern of GI bleed) GI prophylaxis: IV Protonix infusion Diet: Tube Feeds @ 60 mL / hr with 30 cc/hr water flushes (held pending colonoscopy) Pitts: Present Lines: Peripheral IV, Central IV, arterial line Antibiotics: None CODE STATUS: DNR (changed 01/03) Patient plan of care was discussed with the attending physician, Dr. Donovan and senior resident Dr. Manju MD PGY-1
--- NOTE | 2025-01-03 10:31 | PC.SS ---
Update: DECK SPECIALIST informed by ICU resident that patient's code status is now DNR.
--- NOTE | 2025-01-03 11:53 | EVENTNT_ITS ---
<Statement entered by Jamar Schneider MD - 01/03/25 13:40> Patient seen and examined at bedside. I discussed and supervised with the internet researcher physician who took care of this patient. Jamra Schneider MD PGY-2 Documentation for date of: 01/03/25 Event Note Event Note: Today the patient's ocular care technician was present along with patient's daughter (decision maker) via face time in order to have a goals of care conversation. Moe rivera was first informed that Surgery would be assessing the patient later today in regards to seeing her candidacy for surgery. Daughter was explained that if she was to have these surgeries and procedures done, her quality of life will likely be very poor. Next, the patient's daughter was explained the indications for and what is involved for potential resuscitation in the event the patient decompensates and the daughter expressed her understanding of this, the patient's daughter chooses for the patient to be DNR and be as comfortable as possible if the time of deterioration occurs. After this, the patient's daughter was asked for consent to have a colonoscopy done in order to search for a suspected source of bleeding. The daughter was informed of the risks associated with it and consented to the procedure for the patient. Patient plan of care was discussed with the attending physician, Dr. Donovan & senior resident Dr. Manju CALLEJAS PGY-1
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
--- NOTE | 2025-01-03 15:30 | PC.SS ---
Update: Patient remains intubated. Sedation ceased. Patient off of pressors. Dialysis held today. Tube feedings on hold. Plan is for colonoscopy.
[2025-01-03 15:41] LABS: Basophils # (Auto) 0.0 Thou/mm3 (0.0-0.2); Basophils % (Auto) 0 % (0-2.5); Eosinophils # (Auto) 0.0 Thou/mm3 (0.0-0.5); Eosinophils % (Auto) 0 % (0-10); Hematocrit 28.4 % (36.0-46.0); Hemoglobin 9.1 g/dL (12.0-16.0); Immature Granulocytes Auto 0.97 Thou/mm3 (0.00-0.00); Lymphocytes # (Auto) 0.7 Thou/mm3 (1.0-4.8); Lymphocytes % (Auto) 7 % (10-50); Mean Corpuscular HGB Conc 32.0 g/dl (31.0-37.0); Mean Corpuscular Hemoglobin 26.8 pg (25.0-35.0); Mean Corpuscular Volume 84 fL (80-100); Monocytes # (Auto) 0.7 Thou/mm3 (0.0-0.8); Monocytes % (Auto) 7 % (0-12); Neutrophils # (Auto) 7.5 Thou/mm3 (1.8-7.7); Neutrophils % (Auto) 75 % (37-80); Nucleated Red Blood Cell # 0.05 Thou/mm3 (0.00-0.00); Nucleated Red Blood Cell % 1 /100 WBC (0); Platelet Count 95 Thou/mm3 (140-440); RDW Standard Deviation 48.0 fL (36.4-46.3); Red Blood Count 3.39 Miln/mm3 (4.00-5.20); White Blood Count 10.0 Thou/mm3 (3.6-11.0)
--- NOTE | 2025-01-03 15:45 | PD.RESPRO ---
Documentation for date of: 01/03/25 Subjective Subjective Interval history: Patient was seen and assessed at bedside. Continues to be sedated and intubated. BP 116/85 this morning, significantly better controlled. HR also improved to low 90s, however intermittently still tachycardic in low 100s. Likely improved due to improved hemoglobin. WBC 11.6 (from 20.9), hemoglobin 9.3 (from 8.9 yesterday afternoon), platelets 82 (from 86). Status post 2 units PRBC yesterday. Per GI, likely hemoglobin drop from upper GI bleed, will evaluate for lower GI bleed. Potassium 4.3, BUN 39 (from 54), creatinine 0.8, magnesium 2.0. Exam Vital Signs Temp Pulse Resp BP Pulse Ox O2 Del Method O2 Flow Rate 96.4 F L 126 H 25 H 122/86 H 100 Mechanical Ventilation 30 01/03/25 12:00 01/03/25 15:07 01/03/25 15:00 01/03/25 15:07 01/03/25 15:00 01/03/25 05:01 12/28/24 17:00 FiO2 30 01/03/25 14:25 Narrative Exam GENERAL: Patient is intubated and mechanically ventilated. Remains on sedation. HEENT: NC/AT, trachea appears midline, androgenic hair distribution on the chin CARDIOVASCULAR: Irregular rate and rhythm, tachycardic. PULMONARY: symmetric chest rise, on vent, decreased air entry bilaterally due to body habitus ABDOMINAL: soft, non-distended, bowel sounds present EXTREMITIES: Severe left leg swelling with severe hyperkeratotic changes. Left leg swelling with severe hyperkeratotic changes bilaterally. Majority of bullae have ruptured, wounds have been dressed. Cellulitis appears to be improving, withdrawing from marked borders. NEURO: limited due to patient mental status and intubation Objective Labs 01/03/25 15:32 01/03/25 04:40 Labs: Laboratory Results - last 24 hr 01/02/25 01/03/25 01/03/25 16:30 04:40 04:52 WBC 11.6 H D RBC 3.35 L Hgb 8.9 L D 9.3 L Hct 27.6 L 28.1 L MCV 84 MCH 27.8 MCHC 33.1 RDW Std Deviation 47.1 H Plt Count 82 L Neut % (Auto) 66 Lymph % (Auto) 11 [place] % (Auto) 7 Eos % (Auto) 0 Baso % (Auto) 1 Neut # (Auto) 7.7 Lymph # (Auto) 1.3 [place] # (Auto) 0.8 Eos # (Auto) 0.0 Baso # (Auto) 0.1 Immature Gran # (Auto) 1.76 H Absolute Nucleated RBC 0.11 H Immature Gran % 15 H Nucleated RBC % 1 H Puncture Site Left Radial ABG pH 7.47 H ABG pCO2 43 ABG pO2 131 H D ABG HCO3 31 H ABG O2 Saturation 100 H ABG Base Excess 7 H FiO2 35 Sodium 137 Potassium 4.3 Chloride 99 Carbon Dioxide 30.8 Anion Gap 7 BUN 39 H Creatinine 0.8 Estim Creat Clear Calc 112.4 eGFR > 60 BUN/Creatinine Ratio 49 H Glucose 135 H D Calculated Osmolality 285 Calcium 8.2 L Corrected Calcium 9.1 Phosphorus 3.5 Magnesium 2.0 Total Bilirubin 0.7 AST 26 ALT 24 Alkaline Phosphatase 208 H D Total Protein 6.6 Albumin 2.9 L Globulin 3.7 H Albumin/Globulin Ratio 0.8 L ABG Interpretation ABG results: 12/22/24 12/22/24 12/23/24 16:49 23:40 13:05 ABG pH 7.39 7.29 L D ABG pCO2 33 37 ABG pO2 60 L 73 L ABG HCO3 20 18 L ABG O2 Saturation 92 94 ABG Base Excess -5 L -8 L VBG pH 7.35 VBG pCO2 37 VBG pO2 27 VBG Base Excess -5 L 12/24/24 12/24/24 12/24/24 08:54 17:12 17:19 ABG pH 7.25 L 7.16 L* ABG pCO2 34 36 ABG pO2 166 H D 127 H D ABG HCO3 15 L 13 L ABG O2 Saturation 100 H 99 H ABG Base Excess -11 L -15 L VBG pH 7.12 L VBG pCO2 42 VBG pO2 44 VBG Base Excess -15 L 12/24/24 12/24/24 12/25/24 19:45 22:40 04:47 ABG pH 7.10 L* 7.21 L D 7.36 D ABG pCO2 50 H D 38 D 37 ABG pO2 249 H D 249 H 191 H D ABG HCO3 15 L 15 L 21 ABG O2 Saturation 100 H 100 H 100 H ABG Base Excess -14 L -12 L -4 L VBG pH VBG pCO2 VBG pO2 VBG Base Excess 12/25/24 12/25/24 12/26/24 15:59 19:55 04:10 ABG pH 7.41 7.41 7.36 ABG pCO2 37 39 37 ABG pO2 128 H D 123 H 99 D ABG HCO3 23 24 21 ABG O2 Saturation 100 H 99 H 98 ABG Base Excess -1 0 -4 L VBG pH VBG pCO2 VBG pO2 VBG Base Excess 12/27/24 12/27/24 12/28/24 04:08 09:45 04:14 ABG pH 7.47 H D 7.42 7.39 ABG pCO2 36 41 45 ABG pO2 82 L 97 114 H ABG HCO3 26 27 H 27 H ABG O2 Saturation 98 99 H 99 H ABG Base Excess 2 2 2 VBG pH VBG pCO2 VBG pO2 VBG Base Excess 12/29/24 12/30/24 12/31/24 04:30 04:50 04:20 ABG pH 7.38 7.37 7.39 ABG pCO2 46 47 45 ABG pO2 109 H 121 H 83 D ABG HCO3 27 H 27 H 27 H ABG O2 Saturation 99 H 99 H 97 ABG Base Excess 1 1 2 VBG pH VBG pCO2 VBG pO2 VBG Base Excess 01/01/25 01/02/25 01/03/25 04:38 04:13 04:52 ABG pH 7.41 7.43 7.47 H ABG pCO2 47 45 43 ABG pO2 100 92 131 H D ABG HCO3 30 H 29 H 31 H ABG O2 Saturation 99 H 99 H 100 H ABG Base Excess 5 H 4 H 7 H VBG pH VBG pCO2 VBG pO2 VBG Base Excess Quality Measures Quality Measures VTE prophylaxis Assessment & Plan Assessment Current Active Medications: Generic Name Dose Route Start Last Admin Trade Name Freq PRN Reason Stop Dose Admin Acetaminophen 650 mg 01/01/25 08:46 Acetaminophen Ginny 325 Mg/10 Ml Udc GT 01/21/25 17:08 Q6H PRN Pain 1-3 and/or Fever >100.1 Albuterol/Ipratropium 3 ml 12/23/24 09:36 Albuterol/Ipratropium (Duoneb) Rt Ginny 3 Ml Nebu INH 01/22/25 07:44 Q8HRRT PRN wheezing Clotrimazole 0 gm 12/23/24 09:00 01/03/25 08:29 Clotrimazole Cr 1% 30 Gm Tube TOP 01/22/25 08:59 1 applicatio BID TRACY Administration Dextrose 25 ml 12/22/24 17:09 12/25/24 23:07 Dextrose 50%-Water Inj 50 Ml Syringe IV 01/21/25 17:08 25 ml Q15MIN PRN Administration BG 50-70 responsive npo pt Dextrose 50 ml 12/22/24 17:09 12/25/24 14:03 Dextrose 50%-Water Inj 50 Ml Syringe IV 01/21/25 17:08 50 ml Q15MIN PRN Administration BG <50 OR BG <70 & pt unresponsive Docusate Sodium 100 mg 01/01/25 08:43 01/03/25 08:28 Docusate Sod Liqd 100 Mg/10 Ml Udc GT 01/27/25 09:14 100 mg BID TRACY Administration Protocol Gabapentin 100 mg 01/01/25 08:46 01/03/25 08:28 Gabapentin 100 Mg Capsule GT 01/30/25 20:59 100 mg BID TRACY Administration Glucagon 1 mg 12/22/24 17:09 Glucagon Inj 1 Mg Vial IM Q15MIN PRN BG <70, and no IV access Heparin Sodium (Porcine) 7,500 unit 12/23/24 14:00 01/03/25 14:48 Heparin Sod Inj 5000 Unit/Ml Vial SC 01/06/25 13:59 7,500 unit Q8HR TRACY Administration Heparin Sodium (Porcine) 3,000 unit 12/27/24 12:35 01/01/25 16:03 Heparin Sod Inj 1000 Unit/Ml Vial 10 Ml INDWELLCAT 01/10/25 12:34 3,000 unit PRN PRN Administration DIALYSIS Hydromorphone HCl 2 mg 01/01/25 13:56 01/02/25 04:15 Hydromorphone Inj 2 Mg/Ml Vial IVP 01/05/25 11:01 2 mg Q4HR PRN Administration CPOT >3 Protocol Propofol 1,000 mg in 100 mls @ 4.722 mls/hr 12/24/24 16:53 01/01/25 08:48 Diprivan Ivpb IV 01/23/25 16:52 0 mcg/kg/min .[id number] PRN 0 mls/hr Per Protocol Titration Protocol 5 MCG/KG/MIN Fentanyl Citrate 2,500 mcg in 250 mls @ 20 mls/hr 12/29/24 17:41 01/01/25 11:17 Sublimaze Inj 2,500 Mcg/250 Ml Bag IV 01/03/25 17:40 0 mcg/hr .[id number] PRN 0 mls/hr PER PROTOCOL Titration Protocol 200 MCG/HR Pantoprazole Sodium 80 mg in 100 mls @ 10 mls/hr 01/02/25 11:09 01/03/25 15:43 Protonix/Ns 80mg Iv Premix IV 01/05/25 09:08 10 mls/hr Q10H TRACY Administration Amiodarone HCl/Dextrose 360 mg in 200 mls @ 33.333 mls/hr 01/02/25 14:31 01/03/25 15:07 Nexterone Ivpb IV 01/05/25 14:30 33.333 mls/hr .Q6H TRACY Administration Insulin Degludec 25 unit 01/03/25 09:00 01/03/25 08:29 Insulin Degludec 5 Unit/0.05 Ml (Per 5 Units) SC 02/02/25 08:59 25 unit QDAY TRACY Administration Insulin Human Lispro 0 unit 01/01/25 18:00 01/03/25 12:13 Insulin Lispro (Admelog) 1 Unit/0.01 Ml Unit SC 01/31/25 17:59 Not Given Q6HR TRACY Protocol Ondansetron HCl 4 mg 12/22/24 17:09 Ondansetron Inj 2 Mg/Ml Inj 2 Ml IVP 01/21/25 17:08 Q6H PRN NAUSEA OR VOMITING Protocol Oxycodone/Acetaminophen 1 tab 01/03/25 09:06 01/03/25 14:47 Oxycodone/Apap 5/325 Tablet GT 01/05/25 11:59 1 tab Q6HR PRN Administration AGITATION OR PAIN 4-10 Pharmacy Consult 1 each 12/23/24 11:15 Pharmacy Renal Dose Adjustment 1 Ea XX 01/22/25 11:14 PRN PRN CONSULT Sennosides 8.8 mg 01/01/25 08:45 Sennosides Syrup 8.8 Mg/5 Ml Udc GT 01/21/25 17:08 QDAY PRN constipation Protocol Plan Patient is a 54-year-old female with past medical history of IDDM2, bilateral lower limb lymphedema, lipedema, asthma, epilepsy, morbid obesity, wheelchair-bound for 9 years, was brought to the ED on 12/22/24 for left lower extremity pain and clear cirrhosis fluid oozing. Patient was admitted to the ICU for distributive shock. Cardiology team was consulted because of new onset A-fib with RVR and newly diagnosed CHF. #Newly diagnosed HFrEF (40-45%, 11/2024) #New onset A-fib with RVR likely induced by shock state #Streptococcus pyogenes bacteremia 05/02 LLE cellulitis Patient presented with sepsis secondary to left leg cellulitis, her condition worsened to distributive shock. During her stay she developed A-fib with RVR, with no known hx of afib, we started the patient on amiodarone drip. Even though her body habitus echo was done and showed ejection fraction of 40 to 45%. With normal RV function. BNP was 204 which most likely skewed by patient obesity. Troponin was negative. 12/22/24 Echo showed Over all poor images due to body habitus and technically difficult study. Normal left ventricular size and function.Stage I diastolic dysfunction. Estimated ejection fraction is 40-45%. Normal right ventricular size and function. RVSP 39 mm Hg with RAP 8. Mild pulmonary HTN Trace MR and Mild TR. TDS due to patient morbid and laying on supine view, couldn't move. (patient had open wounds under breast) 12/25/2024 patient was started on CRRT due to worsening lactic acidosis and kidney function, blood culture growing Streptococcus pyogenes. 12/27/2024, Amiodrine drip was stopped by the primary team as the patient converted to sinus rhythm. Patient was having tachycardia heart rate of 113 however it was regular sinus. 12/31/24, EKG showed atrial flutter with RVR with 2:1 AV block. Restarted on amiodarone drip 0.5 mg/min around 1PM however patient continues to be in afib w RVR. 01/01/25, continues to be in atrial flutter with RVR with 2: 1 AV block. QTc noted to be 556 on EKG however taking consideration the QRS is widened, QTc is actually likely around 480 calculated by [facility] formula (HR 135, QT interval 8 boxes). Her BUN is elevated at 42 as well as hemoglobin is dropping down over the last couple of days which is contributing to the RVR. Patient mostly has upper GI bleed mostly secondary to oozing of blood from the possible stress-induced gastritis. Recommended primary team to obtain stool guaiac has been GI consult. Discussed this with the critical care attending 01/02/25 -Still continues to be in flutter with variable block and heart rate is better controlled patient continues to be sedated and intubated. Recommend to continue amiodarone drip at 1 mg per minute until patient is able to take oral medications removed 2.7 L during dialysis yesterday. Hemoglobin is still lower at 6.9 today. Primary team planning to transfer the patient to 2 units of PRBC and GI team has been consulted this morning for further evaluation. 01/04/2025?patient rhythm controlled on amiodarone drip. Appears to be in sinus tachycardia on telemetry. Heart rate also improved significantly, now in low 90s to 110s. Likely improved secondary to blood transfusions. See anemia workup by GI below. Plan - Continue amiodarone drip to 1 mg/min for rhythm control. Recommend EKG daily to monitor QTc. - Acceptable to hold medication for rate control at this time. Recommend starting metopropol tartrate 12.5mg q8hr for additional rate and BP control. Uptitrate as BP permits. Will continue to work towards GDMT management as tolerated. ? Due to patient condition no invasive cardiac procedure will be done at this time ? Strict in and out ? Keep potassium and magnesium above 4 and 2 respectively within normal range. This will also help decrease QTc. #Normocytic anemia #Concern for acute GI bleed from stress induced gastritis Hgb downtrending during admission, note drop from 9.7 on 12/29 to 7.1 on 12/30. S/p 1 unit pRBC on 01/01 for Hgb 7.4. Hgb dropped to 6.9. 01/02/2025: Status post 2 units PRBC. Endoscopy showed esophagitis and gastritis characterized by erythema. GI does not believe so there is a drop in hemoglobin hematocrit was due to upper GI bleed. ? Will evaluate for lower GI bleed ?Continue to monitor hemoglobin #Distributive shock most likely secondary to sepsis, resolved #Sepsis secondary to left leg cellulitis #Toxic shock syndrome #Lower extremity lymphedema S/p IgG immunoglobulin Plan ? Primary team switched from clindamycin and meropenem, completed 10-day course with 2 days of IV CFX. ? Stable off norepinephrine drip and vasopressin for distributive shock, only on PRN. However continues to be intubated and sedated. #History of seizure disorder Patient on antiseizure meds #History of COPD Supplemental oxygen, BiPAP as needed, DuoNebs #Elevated bilirubin, elevated AST, hypoalbuminemia Secondary to toxic shock syndrome versus septic shock Follow primary team recommendations #Lactic acidosis improving s/p CRRT #YOU #Non-anion gap metabolic acidosis Thank you for your consultation, please do not hesitate to reach out if you have any question or concern Patient plan of care was discussed with the attending physician, Dr. Chapa. Obdulia Evans, PGY-1 Attending Provider Attestation/Addendum I have personally seen and examined the patient separately on the above date of service and discussed the plan of care with the resident. I reviewed the resident Dr. Obdulia Evans consultation progress note and agree with the resident findings and plan in the note above and have also edited the documentation to reflect my findings and plan. Alex Chapa M.D. Interventional Cardiology
[2025-01-03 15:57] LABS: D-Dimer 3140 ng/mL (<600)
[2025-01-03 16:01] LABS: INR 1.1 (0.9-1.3); Partial Thromboplastin Time 31.1 Seconds (22.0-36.0); Prothrombin Time 11.2 Seconds (9.0-12.2)
[2025-01-03 16:17] LABS: Fibrinogen 647 mg/dL (175-375)
--- NOTE | 2025-01-03 19:24 | ESPR_ITS ---
Documentation for date of: 01/03/25 Subjective Subjective Interval history: Patient evaluated Hemoglobin hematocrit 9.1 and 28.4 GoLytely prep in progress Not clear yet Reschedule colonoscopy for tomorrow Exam Vital Signs Temp Pulse Resp BP Pulse Ox O2 Del Method O2 Flow Rate 96.9 F 117 H 25 H 122/83 100 Mechanical Ventilation 30 01/03/25 16:00 01/03/25 18:00 01/03/25 15:00 01/03/25 18:00 01/03/25 18:00 01/03/25 16:00 12/28/24 17:00 FiO2 35 01/03/25 16:00 Objective Labs 01/03/25 15:32 01/03/25 04:40 Labs: Laboratory Results - last 24 hr 01/03/25 01/03/25 01/03/25 04:40 04:52 15:32 WBC 11.6 H D 10.0 RBC 3.35 L 3.39 L Hgb 9.3 L 9.1 L Hct 28.1 L 28.4 L MCV 84 84 MCH 27.8 26.8 MCHC 33.1 32.0 RDW Std Deviation 47.1 H 48.0 H Plt Count 82 L 95 L Neut % (Auto) 66 75 Lymph % (Auto) 11 7 L [place] % (Auto) 7 7 Eos % (Auto) 0 0 Baso % (Auto) 1 0 Neut # (Auto) 7.7 7.5 Lymph # (Auto) 1.3 0.7 L [place] # (Auto) 0.8 0.7 Eos # (Auto) 0.0 0.0 Baso # (Auto) 0.1 0.0 Immature Gran # (Auto) 1.76 H 0.97 H Absolute Nucleated RBC 0.11 H 0.05 H Immature Gran % 15 H 10 H Nucleated RBC % 1 H 1 H PT 11.2 INR 1.1 APTT 31.1 D Fibrinogen 647 H* D-Dimer 3140 H Puncture Site Left Radial ABG pH 7.47 H ABG pCO2 43 ABG pO2 131 H D ABG HCO3 31 H ABG O2 Saturation 100 H ABG Base Excess 7 H FiO2 35 Sodium 137 Potassium 4.3 Chloride 99 Carbon Dioxide 30.8 Anion Gap 7 BUN 39 H Creatinine 0.8 Estim Creat Clear Calc 112.4 eGFR > 60 BUN/Creatinine Ratio 49 H Glucose 135 H D Calculated Osmolality 285 Calcium 8.2 L Corrected Calcium 9.1 Phosphorus 3.5 Magnesium 2.0 Total Bilirubin 0.7 AST 26 ALT 24 Alkaline Phosphatase 208 H D Total Protein 6.6 Albumin 2.9 L Globulin 3.7 H Albumin/Globulin Ratio 0.8 L Impressions Impression: Anemia blood loss GoLytely prep to continue Colonoscopy postponed to tomorrow ABG Interpretation ABG results: 12/22/24 12/22/24 12/23/24 16:49 23:40 13:05 ABG pH 7.39 7.29 L D ABG pCO2 33 37 ABG pO2 60 L 73 L ABG HCO3 20 18 L ABG O2 Saturation 92 94 ABG Base Excess -5 L -8 L VBG pH 7.35 VBG pCO2 37 VBG pO2 27 VBG Base Excess -5 L 12/24/24 12/24/24 12/24/24 08:54 17:12 17:19 ABG pH 7.25 L 7.16 L* ABG pCO2 34 36 ABG pO2 166 H D 127 H D ABG HCO3 15 L 13 L ABG O2 Saturation 100 H 99 H ABG Base Excess -11 L -15 L VBG pH 7.12 L VBG pCO2 42 VBG pO2 44 VBG Base Excess -15 L 12/24/24 12/24/24 12/25/24 19:45 22:40 04:47 ABG pH 7.10 L* 7.21 L D 7.36 D ABG pCO2 50 H D 38 D 37 ABG pO2 249 H D 249 H 191 H D ABG HCO3 15 L 15 L 21 ABG O2 Saturation 100 H 100 H 100 H ABG Base Excess -14 L -12 L -4 L VBG pH VBG pCO2 VBG pO2 VBG Base Excess 12/25/24 12/25/24 12/26/24 15:59 19:55 04:10 ABG pH 7.41 7.41 7.36 ABG pCO2 37 39 37 ABG pO2 128 H D 123 H 99 D ABG HCO3 23 24 21 ABG O2 Saturation 100 H 99 H 98 ABG Base Excess -1 0 -4 L VBG pH VBG pCO2 VBG pO2 VBG Base Excess 12/27/24 12/27/24 12/28/24 04:08 09:45 04:14 ABG pH 7.47 H D 7.42 7.39 ABG pCO2 36 41 45 ABG pO2 82 L 97 114 H ABG HCO3 26 27 H 27 H ABG O2 Saturation 98 99 H 99 H ABG Base Excess 2 2 2 VBG pH VBG pCO2 VBG pO2 VBG Base Excess 12/29/24 12/30/24 12/31/24 04:30 04:50 04:20 ABG pH 7.38 7.37 7.39 ABG pCO2 46 47 45 ABG pO2 109 H 121 H 83 D ABG HCO3 27 H 27 H 27 H ABG O2 Saturation 99 H 99 H 97 ABG Base Excess 1 1 2 VBG pH VBG pCO2 VBG pO2 VBG Base Excess 01/01/25 01/02/25 01/03/25 04:38 04:13 04:52 ABG pH 7.41 7.43 7.47 H ABG pCO2 47 45 43 ABG pO2 100 92 131 H D ABG HCO3 30 H 29 H 31 H ABG O2 Saturation 99 H 99 H 100 H ABG Base Excess 5 H 4 H 7 H VBG pH VBG pCO2 VBG pO2 VBG Base Excess Assessment & Plan A&P Narrative # Drop in hemoglobin hematocrit etiology uncertain possible occult GI bleeding Consent will be obtained for possible fiberoptic esophagogastroduodenoscopy with possible biopsy therapeutic intervention under intravenous moderate sedation if negative will consider a fiberoptic colonoscopy After GoLytely prep # Other medical problems include metabolic encephalopathy Diabetes mellitus type 2 Atrial flutter/fibrillation on amiodarone drip Necrosis of the distal toes Mechanically ventilated Thank you very much for the opportunity to participate in the care of this patient Time Spent With Patient Time: Total time spent is greater than 50% in coordination of care (as documented) at patient's floor/unit and/or counseling patient: PROCEDURES: Arterial Line Size (Gauge): 20
[2025-01-04] VITALS (41 sets, daily range): BP systolic 117–155; BP diastolic 79–100; PULSE 103–135; RESP 14–51; TEMP 35.9–36.6; O2SAT 88–100; BMI 65.7
[2025-01-04] MEDS: PANTOPRAZOLE/NS 80MG IV PREMIX 80 MG/100 ML BAG 10 MG IV ×3 (02:30→20:44)
[2025-01-04] MEDS: NA SU/NAHCO3/KC/PEG (Golytely) 4,000 ML BTL 4000 ML PO (03:20)
[2025-01-04] MEDS: AMIODARONE 360 MG IVPB 360 MG/200 ML BAG 33.333 MG IV ×4 (03:41→20:45)
[2025-01-04 05:31] LABS: Basophils # (Auto) 0.0 Thou/mm3 (0.0-0.2); Basophils % (Auto) 0 % (0-2.5); Eosinophils # (Auto) 0.0 Thou/mm3 (0.0-0.5); Eosinophils % (Auto) 0 % (0-10); Hematocrit 27.7 % (36.0-46.0); Immature Granulocytes Auto 0.37 Thou/mm3 (0.00-0.00); Lymphocytes # (Auto) 0.9 Thou/mm3 (1.0-4.8); Lymphocytes % (Auto) 11 % (10-50); Mean Corpuscular HGB Conc 31.8 g/dl (31.0-37.0); Mean Corpuscular Hemoglobin 27.0 pg (25.0-35.0); Mean Corpuscular Volume 85 fL (80-100); Monocytes # (Auto) 0.8 Thou/mm3 (0.0-0.8); Monocytes % (Auto) 10 % (0-12); Neutrophils # (Auto) 5.9 Thou/mm3 (1.8-7.7); Neutrophils % (Auto) 74 % (37-80); Nucleated Red Blood Cell # 0.04 Thou/mm3 (0.00-0.00); Nucleated Red Blood Cell % 1 /100 WBC (0); Platelet Count 114 Thou/mm3 (140-440); RDW Standard Deviation 49.1 fL (36.4-46.3); Red Blood Count 3.26 Miln/mm3 (4.00-5.20); White Blood Count 8.0 Thou/mm3 (3.6-11.0)
[2025-01-04 06:02] LABS: Hemoglobin 8.8 g/dL (12.0-16.0)
[2025-01-04 06:10] LABS: Alanine Aminotransferase 21 U/L (10-49); Albumin, Serum 2.7 gm/dL (3.5-5.0); Albumin/Globulin Ratio 0.7 (1.2-2.2); Alkaline Phosphatase 190 U/L (46-116); Anion Gap 8 (7-16); Aspartate Amino Transferase 30 U/L (0-34); BUN/Creatinine Ratio 53 Ratio (12-20); Bilirubin,Total 0.6 mg/dL (0.3-1.2); Blood Urea Nitrogen 32 mg/dL (9-23); Calcium 8.2 mg/dL (8.3-10.6); Calcium (Corrected) 9.2 mg/dL (8.5-10.1); Carbon Dioxide 32.9 mMol/L (20.0-31.0); Chloride 100 mMol/L (98-107); Creatinine (Component) 0.6 mg/dL (0.6-1.3); Estimated Creatinine Clearance 151.2 mL/min (>60); Globulin 3.7 gm/dL (2.3-3.5); Glucose 97 mg/dL (74-106); Magnesium 1.6 mg/dL (1.6-2.6); Osmolality,Calculated 288 (275-295); Phosphorous 2.8 mg/dL (2.4-5.1); Potassium 3.6 mMol/L (3.4-5.1); Sodium 141 mMol/L (136-145); Total Protein 6.4 gm/dL (5.7-8.2); eGFR > 60 See Note
[2025-01-04] MEDS: HEPARIN SOD INJ 5000 UNIT/ML VIAL 7500 UNIT SC ×3 (06:30→21:09)
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
[2025-01-04] MEDS: CLOTRIMAZOLE CR 1% 30 GM TUBE TOP ×2 (08:27→21:11)
[2025-01-04] MEDS: GABAPENTIN 100 MG CAPSULE GT (08:44)
[2025-01-04 09:12] LABS: Base Excess 8 (-3-3); HCO3 33 mEq/L (20-26); Inspired Oxygen, FIO2 100 %; O2 Saturation 94 % (91-98); PCO2 45 mmHg (32.0-48.0); PO2 74 mmHg (83-108); pH, Arterial 7.48 (7.35-7.45)
[2025-01-04 09:14] LABS: Allen Test Performed/OK; Puncture Site Left Radial
--- NOTE | 2025-01-04 09:22 | ESPR_ITS ---
Documentation for date of: 01/04/25 Subjective Subjective Interval history: Patient was seen and assessed at bedside. Continued to wean off sedation, and eventually extubated. Overnight, patient went back into atrial flutter with RVR with 2: 1 AV block since 399. Hgb dropped to 8.8 from 9.1. Pending colonoscopy for anemia work up. HR returned to 130s, recommend to continue amiodarone at 1 mg/min. Exam Vital Signs Temp Pulse Resp BP Pulse Ox O2 Del Method O2 Flow Rate 97.1 F 132 H 31 H 138/93 H 100 Mechanical Ventilation 35 01/04/25 08:00 01/04/25 09:00 01/04/25 08:04 01/04/25 09:00 01/04/25 09:00 01/04/25 08:00 01/03/25 20:00 FiO2 35 01/04/25 08:04 Narrative Exam GENERAL: Patient is intubated and mechanically ventilated. Remains on sedation. HEENT: NC/AT, trachea appears midline, androgenic hair distribution on the chin CARDIOVASCULAR: Irregular rate and rhythm, tachycardic. PULMONARY: symmetric chest rise, on vent, decreased air entry bilaterally due to body habitus ABDOMINAL: soft, non-distended, bowel sounds present EXTREMITIES: Severe left leg swelling with severe hyperkeratotic changes. Left leg swelling with severe hyperkeratotic changes bilaterally. Majority of bullae have ruptured, wounds have been dressed. Cellulitis appears to be improving, withdrawing from marked borders. NEURO: limited due to patient mental status and intubation Objective Labs 01/05/25 04:59 01/05/25 04:59 Labs: Laboratory Results - last 24 hr 01/01/25 01/03/25 01/04/25 07:18 15:32 04:36 WBC 10.0 8.0 RBC 3.39 L 3.26 L Hgb 9.1 L 8.8 L Hct 28.4 L 27.7 L MCV 84 85 MCH 26.8 27.0 MCHC 32.0 31.8 RDW Std Deviation 48.0 H 49.1 H Plt Count 95 L 114 L Neut % (Auto) 75 74 Lymph % (Auto) 7 L 11 [place] % (Auto) 7 10 Eos % (Auto) 0 0 Baso % (Auto) 0 0 Neut # (Auto) 7.5 5.9 Lymph # (Auto) 0.7 L 0.9 L [place] # (Auto) 0.7 0.8 Eos # (Auto) 0.0 0.0 Baso # (Auto) 0.0 0.0 Immature Gran # (Auto) 0.97 H 0.37 H Absolute Nucleated RBC 0.05 H 0.04 H Immature Gran % 10 H 5 H Nucleated RBC % 1 H 1 H PT 11.2 INR 1.1 APTT 31.1 D Fibrinogen 647 H* D-Dimer 3140 H Puncture Site ABG pH ABG pCO2 ABG pO2 ABG HCO3 ABG O2 Saturation ABG Base Excess FiO2 Sodium 141 Potassium 3.6 D Chloride 100 Carbon Dioxide 32.9 H Anion Gap 8 BUN 32 H Creatinine 0.6 Estim Creat Clear Calc 151.2 eGFR > 60 BUN/Creatinine Ratio 53 H Glucose 97 Calculated Osmolality 288 Calcium 8.2 L Corrected Calcium 9.2 Phosphorus 2.8 Magnesium 1.6 Total Bilirubin 0.6 AST 30 ALT 21 Alkaline Phosphatase 190 H Total Protein 6.4 Albumin 2.7 L Globulin 3.7 H Albumin/Globulin Ratio 0.7 L Crossmatch See Detail 01/04/25 09:00 WBC RBC Hgb Hct MCV MCH MCHC RDW Std Deviation Plt Count Neut % (Auto) Lymph % (Auto) [place] % (Auto) Eos % (Auto) Baso % (Auto) Neut # (Auto) Lymph # (Auto) [place] # (Auto) Eos # (Auto) Baso # (Auto) Immature Gran # (Auto) Absolute Nucleated RBC Immature Gran % Nucleated RBC % PT INR APTT Fibrinogen D-Dimer Puncture Site Left Radial ABG pH 7.48 H ABG pCO2 45 ABG pO2 74 L D ABG HCO3 33 H ABG O2 Saturation 94 ABG Base Excess 8 H FiO2 100 Sodium Potassium Chloride Carbon Dioxide Anion Gap BUN Creatinine Estim Creat Clear Calc eGFR BUN/Creatinine Ratio Glucose Calculated Osmolality Calcium Corrected Calcium Phosphorus Magnesium Total Bilirubin AST ALT Alkaline Phosphatase Total Protein Albumin Globulin Albumin/Globulin Ratio Crossmatch ABG Interpretation ABG results: 12/22/24 12/22/24 12/23/24 16:49 23:40 13:05 ABG pH 7.39 7.29 L D ABG pCO2 33 37 ABG pO2 60 L 73 L ABG HCO3 20 18 L ABG O2 Saturation 92 94 ABG Base Excess -5 L -8 L VBG pH 7.35 VBG pCO2 37 VBG pO2 27 VBG Base Excess -5 L 12/24/24 12/24/24 12/24/24 08:54 17:12 17:19 ABG pH 7.25 L 7.16 L* ABG pCO2 34 36 ABG pO2 166 H D 127 H D ABG HCO3 15 L 13 L ABG O2 Saturation 100 H 99 H ABG Base Excess -11 L -15 L VBG pH 7.12 L VBG pCO2 42 VBG pO2 44 VBG Base Excess -15 L 12/24/24 12/24/24 12/25/24 19:45 22:40 04:47 ABG pH 7.10 L* 7.21 L D 7.36 D ABG pCO2 50 H D 38 D 37 ABG pO2 249 H D 249 H 191 H D ABG HCO3 15 L 15 L 21 ABG O2 Saturation 100 H 100 H 100 H ABG Base Excess -14 L -12 L -4 L VBG pH VBG pCO2 VBG pO2 VBG Base Excess 12/25/24 12/25/24 12/26/24 15:59 19:55 04:10 ABG pH 7.41 7.41 7.36 ABG pCO2 37 39 37 ABG pO2 128 H D 123 H 99 D ABG HCO3 23 24 21 ABG O2 Saturation 100 H 99 H 98 ABG Base Excess -1 0 -4 L VBG pH VBG pCO2 VBG pO2 VBG Base Excess 12/27/24 12/27/24 12/28/24 04:08 09:45 04:14 ABG pH 7.47 H D 7.42 7.39 ABG pCO2 36 41 45 ABG pO2 82 L 97 114 H ABG HCO3 26 27 H 27 H ABG O2 Saturation 98 99 H 99 H ABG Base Excess 2 2 2 VBG pH VBG pCO2 VBG pO2 VBG Base Excess 12/29/24 12/30/24 12/31/24 04:30 04:50 04:20 ABG pH 7.38 7.37 7.39 ABG pCO2 46 47 45 ABG pO2 109 H 121 H 83 D ABG HCO3 27 H 27 H 27 H ABG O2 Saturation 99 H 99 H 97 ABG Base Excess 1 1 2 VBG pH VBG pCO2 VBG pO2 VBG Base Excess 01/01/25 01/02/25 01/03/25 04:38 04:13 04:52 ABG pH 7.41 7.43 7.47 H ABG pCO2 47 45 43 ABG pO2 100 92 131 H D ABG HCO3 30 H 29 H 31 H ABG O2 Saturation 99 H 99 H 100 H ABG Base Excess 5 H 4 H 7 H VBG pH VBG pCO2 VBG pO2 VBG Base Excess 01/04/25 09:00 ABG pH 7.48 H ABG pCO2 45 ABG pO2 74 L D ABG HCO3 33 H ABG O2 Saturation 94 ABG Base Excess 8 H VBG pH VBG pCO2 VBG pO2 VBG Base Excess Quality Measures Quality Measures VTE prophylaxis Assessment & Plan Assessment Current Active Medications: Generic Name Dose Route Start Last Admin Trade Name Freq PRN Reason Stop Dose Admin Acetaminophen 650 mg 01/01/25 08:46 Acetaminophen Ginny 325 Mg/10 Ml Udc GT 01/21/25 17:08 On Hold: 01/04/25 09:07 Q6H PRN Comment: PATIENT INTUBATED. Pain 1-3 and/or Fever >100.1 Albuterol/Ipratropium 3 ml 12/23/24 09:36 Albuterol/Ipratropium (Duoneb) Rt Ginny 3 Ml Nebu INH 01/22/25 07:44 Q8HRRT PRN wheezing Clotrimazole 0 gm 12/23/24 09:00 01/04/25 08:27 Clotrimazole Cr 1% 30 Gm Tube TOP 01/22/25 08:59 1 applicatio BID TRACY Administration Dextrose 25 ml 12/22/24 17:09 12/25/24 23:07 Dextrose 50%-Water Inj 50 Ml Syringe IV 01/21/25 17:08 25 ml Q15MIN PRN Administration BG 50-70 responsive npo pt Dextrose 50 ml 12/22/24 17:09 12/25/24 14:03 Dextrose 50%-Water Inj 50 Ml Syringe IV 01/21/25 17:08 50 ml Q15MIN PRN Administration BG <50 OR BG <70 & pt unresponsive Docusate Sodium 100 mg 01/01/25 08:43 01/04/25 08:26 Docusate Sod Liqd 100 Mg/10 Ml Udc GT 01/27/25 09:14 Not Given BID [facility] Protocol Gabapentin 100 mg 01/01/25 08:46 01/04/25 08:44 Gabapentin 100 Mg Capsule GT 01/30/25 20:59 100 mg BID TRACY Administration Glucagon 1 mg 12/22/24 17:09 Glucagon Inj 1 Mg Vial IM Q15MIN PRN BG <70, and no IV access Heparin Sodium (Porcine) 7,500 unit 12/23/24 14:00 01/04/25 06:30 Heparin Sod Inj 5000 Unit/Ml Vial SC 01/06/25 13:59 7,500 unit Q8HR TRACY Administration Heparin Sodium (Porcine) 3,000 unit 12/27/24 12:35 01/01/25 16:03 Heparin Sod Inj 1000 Unit/Ml Vial 10 Ml INDWELLCAT 01/10/25 12:34 3,000 unit PRN PRN Administration DIALYSIS Hydromorphone HCl 2 mg 01/01/25 13:56 01/02/25 04:15 Hydromorphone Inj 2 Mg/Ml Vial IVP 01/05/25 11:01 2 mg Q4HR PRN Administration CPOT >3 Protocol Propofol 1,000 mg in 100 mls @ 4.722 mls/hr 12/24/24 16:53 01/01/25 08:48 Diprivan Ivpb IV 01/23/25 16:52 0 mcg/kg/min .[id number] PRN 0 mls/hr Per Protocol Titration Protocol 5 MCG/KG/MIN Pantoprazole Sodium 80 mg in 100 mls @ 10 mls/hr 01/02/25 11:09 01/04/25 02:30 Protonix/Ns 80mg Iv Premix IV 01/05/25 09:08 10 mls/hr Q10H TRACY Administration Amiodarone HCl/Dextrose 360 mg in 200 mls @ 33.333 mls/hr 01/02/25 14:31 01/04/25 08:29 Nexterone Ivpb IV 01/05/25 14:30 33.333 mls/hr .Q6H TRACY Administration Insulin Degludec 25 unit 01/03/25 09:00 01/04/25 08:26 Insulin Degludec 5 Unit/0.05 Ml (Per 5 Units) SC 02/02/25 08:59 Not Given On Hold: 01/04/25 08:42 QDAY TRACY Insulin Human Lispro 0 unit 01/01/25 18:00 01/04/25 06:31 Insulin Lispro (Admelog) 1 Unit/0.01 Ml Unit SC 01/31/25 17:59 Not Given Q6HR TRACY Protocol Ondansetron HCl 4 mg 12/22/24 17:09 Ondansetron Inj 2 Mg/Ml Inj 2 Ml IVP 01/21/25 17:08 Q6H PRN NAUSEA OR VOMITING Protocol Oxycodone/Acetaminophen 1 tab 01/03/25 09:06 01/03/25 14:47 Oxycodone/Apap 5/325 Tablet GT 01/05/25 11:59 1 tab On Hold: 01/04/25 09:08 Q6HR PRN Administration Comment: PATIENT INTUBATED. AGITATION OR PAIN 4-10 Pharmacy Consult 1 each 12/23/24 11:15 Pharmacy Renal Dose Adjustment 1 Ea XX 01/22/25 11:14 PRN PRN CONSULT Sennosides 8.8 mg 01/01/25 08:45 Sennosides Syrup 8.8 Mg/5 Ml Udc GT 01/21/25 17:08 QDAY PRN constipation Protocol Plan Patient is a 54-year-old female with past medical history of IDDM2, bilateral lower limb lymphedema, lipedema, asthma, epilepsy, morbid obesity, wheelchair- bound for 9 years, was brought to the ED on 12/22/24 for left lower extremity pain and clear cirrhosis fluid oozing. Patient was admitted to the ICU for distributive shock. Cardiology team was consulted because of new onset A-fib with RVR and newly diagnosed CHF. #Newly diagnosed HFrEF (40-45%, 11/2024) #New onset A-fib with RVR likely induced by shock state #Streptococcus pyogenes bacteremia 2/ LLE cellulitis Patient presented with sepsis secondary to left leg cellulitis, her condition worsened to distributive shock. During her stay she developed A-fib with RVR, with no known hx of afib, we started the patient on amiodarone drip. Even though her body habitus echo was done and showed ejection fraction of 40 to 45%. With normal RV function. BNP was 204 which most likely skewed by patient obesity. Troponin was negative. 12/22/24 Echo showed Over all poor images due to body habitus and technically difficult study. Normal left ventricular size and function.Stage I diastolic dysfunction. Estimated ejection fraction is 40-45%. Normal right ventricular size and function. RVSP 39 mm Hg with RAP 8. Mild pulmonary HTN Trace MR and Mild TR. TDS due to patient morbid and laying on supine view, couldn't move. (patient had open wounds under breast) 12/25/2024 patient was started on CRRT due to worsening lactic acidosis and kidney function, blood culture growing Streptococcus pyogenes. 12/27/2024, Amiodrine drip was stopped by the primary team as the patient converted to sinus rhythm. Patient was having tachycardia heart rate of 113 however it was regular sinus. 12/31/24, EKG showed atrial flutter with RVR with 2:1 AV block. Restarted on amiodarone drip 0.5 mg/min around 1PM however patient continues to be in afib w RVR. 01/01/25, continues to be in atrial flutter with RVR with 2: 1 AV block. QTc noted to be 556 on EKG however taking consideration the QRS is widened, QTc is actually likely around 480 calculated by [facility] formula (HR 135, QT interval 8 boxes). Her BUN is elevated at 42 as well as hemoglobin is dropping down over the last couple of days which is contributing to the RVR. Patient mostly has upper GI bleed mostly secondary to oozing of blood from the possible stress- induced gastritis. Recommended primary team to obtain stool guaiac has been GI consult. Discussed this with the critical care attending 01/02/25 -Still continues to be in flutter with variable block and heart rate is better controlled patient continues to be sedated and intubated. Recommend to continue amiodarone drip at 1 mg per minute until patient is able to take oral medications removed 2.7 L during dialysis yesterday. Hemoglobin is still lower at 6.9 today. Primary team planning to transfer the patient to 2 units of PRBC and GI team has been consulted this morning for further evaluation. 01/04/2025?patient rhythm controlled on amiodarone drip. Appears to be in sinus tachycardia on telemetry. Heart rate also improved significantly, now in low 90s to 110s. Likely improved secondary to blood transfusions. See anemia workup by GI below. Plan - Continue amiodarone drip to 1 mg/min for rhythm control. Recommend EKG daily to monitor QTc. - Acceptable to hold medication for rate control at this time. Recommend starting metopropol tartrate 12.5mg q8hr for additional rate and BP control. Uptitrate as BP permits. Will continue to work towards GDMT management as tolerated. ? Due to patient condition no invasive cardiac procedure will be done at this time ? Strict in and out ? Keep potassium and magnesium above 4 and 2 respectively within normal range. This will also help decrease QTc. #Normocytic anemia #Concern for acute GI bleed from stress induced gastritis Hgb downtrending during admission, note drop from 9.7 on 12/29 to 7.1 on 12/30. S/p 1 unit pRBC on 01/01 for Hgb 7.4. Hgb dropped to 6.9. 01/02/2025: Status post 2 units PRBC. Endoscopy showed esophagitis and gastritis characterized by erythema. GI does not believe so there is a drop in hemoglobin hematocrit was due to upper GI bleed. ? Will evaluate for lower GI bleed ?Continue to monitor hemoglobin #Distributive shock most likely secondary to sepsis, resolved #Sepsis secondary to left leg cellulitis #Toxic shock syndrome #Lower extremity lymphedema S/p IgG immunoglobulin Plan ? Primary team switched from clindamycin and meropenem, completed 10-day course with 2 days of IV CFX. ? Stable off norepinephrine drip and vasopressin for distributive shock, only on PRN. However continues to be intubated and sedated. #History of seizure disorder Patient on antiseizure meds #History of COPD Supplemental oxygen, BiPAP as needed, DuoNebs #Elevated bilirubin, elevated AST, hypoalbuminemia Secondary to toxic shock syndrome versus septic shock Follow primary team recommendations #Lactic acidosis improving s/p CRRT #YOU #Non-anion gap metabolic acidosis Thank you for your consultation, please do not hesitate to reach out if you have any question or concern Patient plan of care was discussed with the attending physician, Dr. Chapa. Obdulia Evans, PGY-1 Attending Provider Attestation/Addendum I have personally seen and examined the patient separately on the above date of service and discussed the plan of care with the resident. I reviewed the resident Dr. Obdulia Evans consultation progress note and agree with the resident findings and plan in the note above and have also edited the documentation to reflect my findings and plan. Alex Chapa M.D. Interventional Cardiology
[2025-01-04] MEDS: ACETAzolaMIDE SOD 250 MG in SODIUM CHLORIDE 0.9% 50 ML 100 MG IV (10:02)
--- NOTE | 2025-01-04 10:37 | ESPR_ITS ---
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 recommendations, last dialysis 01/01 -Strict I's & O's -Avoid nephrotoxins #Electrolyte derangements, improved #Hypercalcemia #Hypophosphatemia Electrolytes within normal limits Rx: -Monitor CMP, correct electrolytes as appropriate #Lactic acidosis 2/2 toxic shock syndrome (resolved) #Anion gap metabolic acidosis (resolved) Patient presented with significant lactic acidosis likely 2/2 toxic shock syndrome and YOU that peaked at 10.0 despite receiving broad-coverage antibiotics, which raised concerns for ongoing necrosis or compartment syndrome occurring occultly in patient's extremely lymphedematous legs (resulting in efforts to transfer her for radical surgical intervention at a facility that could offer more specialized care) However, it has now been downtrending and was most recently seen at 2.5 (in the setting of ongoing CRRT), signaling that any dangerous cause of ongoing lactic acidosis (compartment syndrome, necrosis) seems to have slowed or stopped Dx: -LA 2.5 (ongoing CRRT) -12/26 Bilateral lower extremity venous Doppler ultrasound ruled out cerulea dolens 2/2 extensive DVT -12/26 Bedside arterial duplex of dorsalis pedis confirmed blood flow to both feet Rx: -General Surgery (Dr. Hines) consulted regarding possible surgical decompression/debridement options as well as opinions on the viability of transferring patient to another facility for [id number]-care -Transfer nurse contacted to initiate proceedings necessary to possible transfer (however, due to halt of cellulitic spread and resolving lactic acidosis, pursuit of transfer has been deferred for now) -Treat underlying cause (toxic shock syndrome) GI #Suspected GI bleed Patient has chronic anemia but has been trending down hemoglobin for past 3 days. High risk of stress ulcer in setting of thrombocytopenia, coagulopathy, intubation, critical illness. BUN remains elevated as kidney function improves. Dx: -Hemoglobin 9.2 after transfusion previous day -Pending bowel movement for eval of melena -GI consulted, EGD 01/02 showing gastritis & no bleeding. -plan for colonoscopy. Rx: -3 total units PRBC (01/01-01/02) -Protonix infusion -Follow-up on colonoscopy #Constipation, resolved Patient had a brown loose BM 01/03 Rx: -Abd XR 01/01 showed Moderate colonic ileus, no obstruction -Senna syrup via G-tube ordered -Active bowel sounds RRx: -If patient does not have bowel movement by tomorrow, consider enema #Isolated ALP elevation, improving DDx: -In the setting of ongoing toxic shock syndrome, AST/ALT were initially elevated, down trended to WNL. Dx: -Alk phos has been steadily elevated, likely due to increased WBC. -Alk phos downtrending Endocrine #Hyperglycemia DDx: -Likely due to Steroid use. Dx: -A1c 12/23/2024 of 5.6, previous one in system is from 2020 at 5.4. -No hemoglobin A1c recorded in [facility] medical records actually meeting criteria for T2DM -Glucose continues to be in good range, however, patient has been NPO. Rx: -Holding Insulin Degludec to 25 u SC qday while NPO (colonoscopy) -Lispro sliding scale q6hr -Tube feeds of 60 mL / hr and 30 mL/hr flushes if no IVF (held) -Blood sugar check q6HR Heme #Thrombocytopenia (improving) Concern for drug induced vs reactive to acute illness Dx: -PLT continue to be low, trending up without transfusions. 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) pending (contacted lab 12/31, confirmed it is still pending as a send out) Rx: - s/p KCentra 5,000 U x 1 on 12/23/24 (protein C concentrates [Ceprotin], which is the [id number] treatment for this diagnosis, is unavailable here) #Leukocytosis, improved #Leukemoid reaction In the setting of ongoing toxic shock syndrome, infection, and steroid medications However, has continued to uptrend while on antibiotics for treatment of toxic shock syndrome Currently suspect this is a benign leukemoid reaction in the setting of acute illness DDx: occult infection due to bacterial (Clostridioides difficile from clindamycin use) or commensal fungal overgrowth Dx: -WBC 11.6 (33) -Patient remains afebrile -Blood cx 04/01 final grew Coag negative Staph (12/28) #Anemia, microcytic Likely due to MALINA, chart review reveals chronic. Patient hemoglobin is trending downwards over the course of hospital stay. Significant downtrend over past 3 days from approximately 10 to 6.9. Concern for GI bleed in setting of critically ill patient, notably BUN remains elevated as kidney function improves. Dx: -Hgb 8.8 post transfusion 3 units total Rx: -Will continue to monitor hgb and for signs of bleeding. -GI consulted, EGD 01/02, colonscopy planned #Coagulopathy 2/2 toxic shock syndrome - possible DIC, resolving Patient initially had elevated INR, elevated D-Dimer, and elevated fibrinogen early in her ICU admission which suggested the presence of low-level DIC Dx: -Elevated INR, elevated D-Dimer, and elevated fibrinogen suggestive of low level DIC Rx: -Consider trending coagulation panels RRx: -PT, APTT, fibrinogen, and D-dimer remain elevated at this time but stable ID #Cellulitis #Streptococcus pyogenes bacteremia #Chronic bilateral lower extremity lymphedema Likely source of sepsis and precipitating toxic shock syndrome As mentioned earlier in the Cardiovascular section, clindamycin is unique as an antibiotic for treatment of TSS in that it binds to the 50S ribosomal subunit of bacteria and directly suppresses synthesis of exotoxins like Toxic Shock Syndrome Toxin-1 (TSST-1) and enterotoxins produced by Streptococcus pyogenes Timeline of antibiotic regimen detailed below: 1. IV vancomycin dosed by pharmacy [12/22-12/25, discontinued due to MRSA(-)] 2. IV clindamycin 600 mg q8HR [12/22-12/30, dc'd due to concern for Drug induced Thrombocytopenia and no longer needed for TSS] 3. IV cefepime 2 gm q12HR [12/22-12/24, discontinued after TSS became favored diagnosis] 4. IV meropenem 1000 mg q8HR [12/24-12/30, dc'd due to possible Drug induced Thrombocytopenia] 5. IV Ceftriaxone 2 g qday [12/30 - 01/01 for total ABX course of 10 days] Dx: -12/22 BCx (04/01) grew zaman-sensitive Streptococcus pyogenes (Group A Streptococcus) -12/31 Final Bcx show Coag Negative Staph Rx: -Continuing Wound care management -Surgery consulted for evaluation for debridement and/or amputation Disposition: ICU; Extubation today DVT prophylaxis: Heparin 7500 q8HR (held due to concern of GI bleed) GI prophylaxis: IV Protonix infusion Diet: Tube Feeds @ 60 mL / hr with 30 cc/hr water flushes (held pending colonoscopy) Pitts: Present Lines: Peripheral IV, Central IV, arterial line Antibiotics: None CODE STATUS: DNR (changed 01/03) Patient plan of care was discussed with the attending physician, Dr. Donovan and senior resident Dr. Manju MD PGY-1
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
--- NOTE | 2025-01-04 12:20 | PC.NURSE ---
spoke with patient daughter on phone, pt daughter given update and number of pts appt. manager customer service Addy Madera [phone], Marcie Spence appt. in [place] per lynette reid
--- NOTE | 2025-01-04 13:46 | PC.SS ---
Update: Patient extubated. NPO. Not receiving IV antibiotics or pressor support. No dialysis today. Pitts catheter and rectal tube in place. Pending colonoscopy. Surgery is consulting.
[2025-01-04] MEDS: HYDROmorphone INJ 2 MG/ML VIAL 0.5 MG IVP (20:50)
[2025-01-05] VITALS (24 sets, daily range): BP systolic 107–150; BP diastolic 59–103; PULSE 98–140; RESP 11–96; TEMP 36–36.7; O2SAT 75–100
[2025-01-05] MEDS: AMIODARONE 360 MG IVPB 360 MG/200 ML BAG 33.333 MG IV ×4 (02:33→21:27)
[2025-01-05] MEDS: METOPROLOL TARTRATE INJ 1 MG/ML AMP 5 ML 2.5 MG IVP (03:11)
[2025-01-05] MEDS: HEPARIN SOD INJ 5000 UNIT/ML VIAL 7500 UNIT SC ×3 (05:14→21:40)
[2025-01-05 05:29] LABS: Basophils # (Auto) 0.0 Thou/mm3 (0.0-0.2); Basophils % (Auto) 0 % (0-2.5); Eosinophils # (Auto) 0.0 Thou/mm3 (0.0-0.5); Eosinophils % (Auto) 0 % (0-10); Hematocrit 29.0 % (36.0-46.0); Hemoglobin 9.0 g/dL (12.0-16.0); Immature Granulocytes Auto 0.13 Thou/mm3 (0.00-0.00); Lymphocytes # (Auto) 0.9 Thou/mm3 (1.0-4.8); Lymphocytes % (Auto) 11 % (10-50); Mean Corpuscular HGB Conc 31.0 g/dl (31.0-37.0); Mean Corpuscular Hemoglobin 26.9 pg (25.0-35.0); Mean Corpuscular Volume 87 fL (80-100); Monocytes # (Auto) 0.9 Thou/mm3 (0.0-0.8); Monocytes % (Auto) 11 % (0-12); Neutrophils # (Auto) 5.8 Thou/mm3 (1.8-7.7); Neutrophils % (Auto) 76 % (37-80); Nucleated Red Blood Cell # 0.00 Thou/mm3 (0.00-0.00); Nucleated Red Blood Cell % 0 /100 WBC (0); Platelet Count 141 Thou/mm3 (140-440); RDW Standard Deviation 52.6 fL (36.4-46.3); Red Blood Count 3.35 Miln/mm3 (4.00-5.20); White Blood Count 7.6 Thou/mm3 (3.6-11.0)
[2025-01-05 05:57] LABS: Alanine Aminotransferase 28 U/L (10-49); Albumin, Serum 2.8 gm/dL (3.5-5.0); Albumin/Globulin Ratio 0.8 (1.2-2.2); Alkaline Phosphatase 169 U/L (46-116); Anion Gap 8 (7-16); Aspartate Amino Transferase 32 U/L (0-34); BUN/Creatinine Ratio 58 Ratio (12-20); Bilirubin,Total 0.6 mg/dL (0.3-1.2); Blood Urea Nitrogen 29 mg/dL (9-23); Calcium 8.5 mg/dL (8.3-10.6); Calcium (Corrected) 9.5 mg/dL (8.5-10.1); Carbon Dioxide 32.4 mMol/L (20.0-31.0); Chloride 102 mMol/L (98-107); Creatinine (Component) 0.5 mg/dL (0.6-1.3); Estimated Creatinine Clearance 185.4 mL/min (>60); Globulin 3.5 gm/dL (2.3-3.5); Glucose 100 mg/dL (74-106); Magnesium 1.7 mg/dL (1.6-2.6); Osmolality,Calculated 288 (275-295); Phosphorous 2.8 mg/dL (2.4-5.1); Potassium 3.4 mMol/L (3.4-5.1); Sodium 142 mMol/L (136-145); Total Protein 6.3 gm/dL (5.7-8.2); eGFR > 60 See Note
[2025-01-05 06:32] LABS: Iron 32 mcg/dL (50-170); Percent Iron Saturation 13 % (20-55); Total Iron Binding Capacity 229 mcg/dL (250-425); Unsaturated Iron Binding 197 (225-295)
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
[2025-01-05] MEDS: CLOTRIMAZOLE CR 1% 30 GM TUBE TOP ×2 (09:00→21:27)
--- NOTE | 2025-01-05 09:20 | PCS.ST ---
Swallowing Evaluation completed. See report for details. Pt is not ready for PO diet. S/S of laryngeal penetration and odynophagia. ST will follow for diet readiness.
[2025-01-05] MEDS: Magnesium Sulfate 2 GM Ivpb 2 GM/50 ML BAG IV (09:45)
[2025-01-05] MEDS: POTASSIUM CHL 10 mEq IVPB 10 MEQ/100 ML BAG 100 MEQ IV ×3 (09:45→13:02)
[2025-01-05] MEDS: HYDROmorphone INJ 2 MG/ML VIAL 0.5 MG IVP (10:04)
--- NOTE | 2025-01-05 10:23 | PD.RESPRO ---
Documentation for date of: 01/05/25 Subjective Subjective Interval history: Patient was seen and assessed at bedside. Patient extubated and able to answer questions appropriately. Complained of generalized abdominal pain but denies any chest pain, shortness of breath, palpitations. Exam Vital Signs Temp Pulse Resp BP Pulse Ox O2 Del Method O2 Flow Rate 98.0 F 140 H 16 140/96 H 97 Room Air 6 01/05/25 04:00 01/05/25 09:23 01/05/25 06:00 01/05/25 09:23 01/05/25 06:00 01/04/25 19:00 01/04/25 12:06 FiO2 28 01/04/25 12:06 Narrative Exam GENERAL: Patient is intubated and mechanically ventilated. Remains on sedation. HEENT: NC/AT, trachea appears midline, androgenic hair distribution on the chin CARDIOVASCULAR: Irregular rate and rhythm, tachycardic. PULMONARY: symmetric chest rise, on vent, decreased air entry bilaterally due to body habitus ABDOMINAL: soft, non-distended, bowel sounds present EXTREMITIES: Severe left leg swelling with severe hyperkeratotic changes. Left leg swelling with severe hyperkeratotic changes bilaterally. Majority of bullae have ruptured, wounds have been dressed. Cellulitis appears to be improving, withdrawing from marked borders. NEURO: limited due to patient mental status and intubation Objective Labs 01/05/25 04:59 01/05/25 04:59 Labs: Laboratory Results - last 24 hr 01/05/25 04:59 WBC 7.6 RBC 3.35 L Hgb 9.0 L Hct 29.0 L MCV 87 MCH 26.9 MCHC 31.0 RDW Std Deviation 52.6 H Plt Count 141 D Neut % (Auto) 76 Lymph % (Auto) 11 [place] % (Auto) 11 Eos % (Auto) 0 Baso % (Auto) 0 Neut # (Auto) 5.8 Lymph # (Auto) 0.9 L [place] # (Auto) 0.9 H Eos # (Auto) 0.0 Baso # (Auto) 0.0 Immature Gran # (Auto) 0.13 H Absolute Nucleated RBC 0.00 Immature Gran % 2 H Nucleated RBC % 0 Sodium 142 Potassium 3.4 Chloride 102 Carbon Dioxide 32.4 H Anion Gap 8 BUN 29 H Creatinine 0.5 L Estim Creat Clear Calc 185.4 eGFR > 60 BUN/Creatinine Ratio 58 H Glucose 100 Calculated Osmolality 288 Calcium 8.5 Corrected Calcium 9.5 Phosphorus 2.8 Magnesium 1.7 Iron 32 L TIBC 229 L Iron Saturation 13 L Unsat Iron Binding 197 L Total Bilirubin 0.6 AST 32 ALT 28 Alkaline Phosphatase 169 H D Total Protein 6.3 Albumin 2.8 L Globulin 3.5 Albumin/Globulin Ratio 0.8 L ABG Interpretation ABG results: 12/22/24 12/22/24 12/23/24 16:49 23:40 13:05 ABG pH 7.39 7.29 L D ABG pCO2 33 37 ABG pO2 60 L 73 L ABG HCO3 20 18 L ABG O2 Saturation 92 94 ABG Base Excess -5 L -8 L VBG pH 7.35 VBG pCO2 37 VBG pO2 27 VBG Base Excess -5 L 12/24/24 12/24/24 12/24/24 08:54 17:12 17:19 ABG pH 7.25 L 7.16 L* ABG pCO2 34 36 ABG pO2 166 H D 127 H D ABG HCO3 15 L 13 L ABG O2 Saturation 100 H 99 H ABG Base Excess -11 L -15 L VBG pH 7.12 L VBG pCO2 42 VBG pO2 44 VBG Base Excess -15 L 12/24/24 12/24/24 12/25/24 19:45 22:40 04:47 ABG pH 7.10 L* 7.21 L D 7.36 D ABG pCO2 50 H D 38 D 37 ABG pO2 249 H D 249 H 191 H D ABG HCO3 15 L 15 L 21 ABG O2 Saturation 100 H 100 H 100 H ABG Base Excess -14 L -12 L -4 L VBG pH VBG pCO2 VBG pO2 VBG Base Excess 12/25/24 12/25/24 12/26/24 15:59 19:55 04:10 ABG pH 7.41 7.41 7.36 ABG pCO2 37 39 37 ABG pO2 128 H D 123 H 99 D ABG HCO3 23 24 21 ABG O2 Saturation 100 H 99 H 98 ABG Base Excess -1 0 -4 L VBG pH VBG pCO2 VBG pO2 VBG Base Excess 12/27/24 12/27/24 12/28/24 04:08 09:45 04:14 ABG pH 7.47 H D 7.42 7.39 ABG pCO2 36 41 45 ABG pO2 82 L 97 114 H ABG HCO3 26 27 H 27 H ABG O2 Saturation 98 99 H 99 H ABG Base Excess 2 2 2 VBG pH VBG pCO2 VBG pO2 VBG Base Excess 12/29/24 12/30/24 12/31/24 04:30 04:50 04:20 ABG pH 7.38 7.37 7.39 ABG pCO2 46 47 45 ABG pO2 109 H 121 H 83 D ABG HCO3 27 H 27 H 27 H ABG O2 Saturation 99 H 99 H 97 ABG Base Excess 1 1 2 VBG pH VBG pCO2 VBG pO2 VBG Base Excess 01/01/25 01/02/25 01/03/25 04:38 04:13 04:52 ABG pH 7.41 7.43 7.47 H ABG pCO2 47 45 43 ABG pO2 100 92 131 H D ABG HCO3 30 H 29 H 31 H ABG O2 Saturation 99 H 99 H 100 H ABG Base Excess 5 H 4 H 7 H VBG pH VBG pCO2 VBG pO2 VBG Base Excess 01/04/25 09:00 ABG pH 7.48 H ABG pCO2 45 ABG pO2 74 L D ABG HCO3 33 H ABG O2 Saturation 94 ABG Base Excess 8 H VBG pH VBG pCO2 VBG pO2 VBG Base Excess Quality Measures Quality Measures VTE prophylaxis Assessment & Plan Assessment Current Active Medications: Generic Name Dose Route Start Last Admin Trade Name Freq PRN Reason Stop Dose Admin Acetaminophen 650 mg 01/01/25 08:46 Acetaminophen Ginny 325 Mg/10 Ml Udc GT 01/21/25 17:08 On Hold: 01/04/25 09:07 Q6H PRN Comment: PATIENT INTUBATED. Pain 1-3 and/or Fever >100.1 Albuterol/Ipratropium 3 ml 12/23/24 09:36 Albuterol/Ipratropium (Duoneb) Rt Ginny 3 Ml Nebu INH 01/22/25 07:44 Q8HRRT PRN wheezing Clotrimazole 0 gm 12/23/24 09:00 01/05/25 09:00 Clotrimazole Cr 1% 30 Gm Tube TOP 01/22/25 08:59 1 applicatio BID TRACY Administration Dextrose 25 ml 12/22/24 17:09 12/25/24 23:07 Dextrose 50%-Water Inj 50 Ml Syringe IV 01/21/25 17:08 25 ml Q15MIN PRN Administration BG 50-70 responsive npo pt Dextrose 50 ml 12/22/24 17:09 12/25/24 14:03 Dextrose 50%-Water Inj 50 Ml Syringe IV 01/21/25 17:08 50 ml Q15MIN PRN Administration BG <50 OR BG <70 & pt unresponsive Gabapentin 100 mg 01/01/25 08:46 01/04/25 08:44 Gabapentin 100 Mg Capsule GT 01/30/25 20:59 100 mg On Hold: 01/04/25 18:23 BID TRACY Administration Glucagon 1 mg 12/22/24 17:09 Glucagon Inj 1 Mg Vial IM Q15MIN PRN BG <70, and no IV access Heparin Sodium (Porcine) 7,500 unit 12/23/24 14:00 01/05/25 05:14 Heparin Sod Inj 5000 Unit/Ml Vial SC 01/06/25 13:59 7,500 unit Q8HR TRACY Administration Heparin Sodium (Porcine) 3,000 unit 12/27/24 12:35 01/01/25 16:03 Heparin Sod Inj 1000 Unit/Ml Vial 10 Ml INDWELLCAT 01/10/25 12:34 3,000 unit PRN PRN Administration DIALYSIS Hydromorphone HCl 1 mg 01/04/25 18:44 Hydromorphone Inj 2 Mg/Ml Vial IVP 01/09/25 18:43 Q4HR PRN Pain (1-6) Propofol 1,000 mg in 100 mls @ 4.722 mls/hr 12/24/24 16:53 01/01/25 08:48 Diprivan Ivpb IV 01/23/25 16:52 0 mcg/kg/min .[id number] PRN 0 mls/hr Per Protocol Titration Protocol 5 MCG/KG/MIN Amiodarone HCl/Dextrose 360 mg in 200 mls @ 33.333 mls/hr 01/02/25 14:31 01/05/25 09:23 Nexterone Ivpb IV 01/05/25 14:30 33.333 mls/hr .Q6H TRACY Administration Magnesium Sulfate 2 gm in 50 mls @ 25 mls/hr 01/05/25 08:41 01/05/25 09:45 Magnesium Sulfate Ivpb IV 01/05/25 10:40 25 mls/hr X1 ONE Administration Potassium Chloride 10 meq in 100 mls @ 100 mls/hr 01/05/25 08:41 01/05/25 09:45 Kcl Ivpb IV 01/05/25 11:40 100 mls/hr Q1H TRACY Administration Insulin Degludec 25 unit 01/03/25 09:00 01/04/25 08:26 Insulin Degludec 5 Unit/0.05 Ml (Per 5 Units) SC 02/02/25 08:59 Not Given On Hold: 01/04/25 08:42 QDAY TRACY Insulin Human Lispro 0 unit 01/01/25 18:00 01/05/25 05:18 Insulin Lispro (Admelog) 1 Unit/0.01 Ml Unit SC 01/31/25 17:59 Not Given Q6HR TRACY Protocol Neomycin/Polymyxin/Bacitracin 0 gm 01/04/25 22:00 01/05/25 05:14 Mehul/Poly/Ethan (Neosporin) Oint 15 Gm Tube TOP 01/11/25 21:59 1 applicatio TID TRACY Administration Ondansetron HCl 4 mg 12/22/24 17:09 Ondansetron Inj 2 Mg/Ml Inj 2 Ml IVP 01/21/25 17:08 Q6H PRN NAUSEA OR VOMITING Protocol Oxycodone/Acetaminophen 1 tab 01/03/25 09:06 01/03/25 14:47 Oxycodone/Apap 5/325 Tablet GT 01/05/25 11:59 1 tab On Hold: 01/04/25 09:08 Q6HR PRN Administration Comment: PATIENT INTUBATED. AGITATION OR PAIN 4-10 Pharmacy Consult 1 each 12/23/24 11:15 Pharmacy Renal Dose Adjustment 1 Ea XX 01/22/25 11:14 PRN PRN CONSULT Plan Patient is a 54-year-old female with past medical history of IDDM2, bilateral lower limb lymphedema, lipedema, asthma, epilepsy, morbid obesity, wheelchair-bound for 9 years, was brought to the ED on 12/22/24 for left lower extremity pain and clear cirrhosis fluid oozing. Patient was admitted to the ICU for distributive shock. Cardiology team was consulted because of new onset A-fib with RVR and newly diagnosed CHF. #Newly diagnosed HFrEF (40-45%, 11/2024) #New onset A-fib with RVR likely induced by shock state #Streptococcus pyogenes bacteremia 2/ LLE cellulitis Patient presented with sepsis secondary to left leg cellulitis, her condition worsened to distributive shock. During her stay she developed A-fib with RVR, with no known hx of afib, we started the patient on amiodarone drip. Even though her body habitus echo was done and showed ejection fraction of 40 to 45%. With normal RV function. BNP was 204 which most likely skewed by patient obesity. Troponin was negative. 12/22/24 Echo showed Over all poor images due to body habitus and technically difficult study. Normal left ventricular size and function.Stage I diastolic dysfunction. Estimated ejection fraction is 40-45%. Normal right ventricular size and function. RVSP 39 mm Hg with RAP 8. Mild pulmonary HTN Trace MR and Mild TR. TDS due to patient morbid and laying on supine view, couldn't move. (patient had open wounds under breast) 12/25/2024 patient was started on CRRT due to worsening lactic acidosis and kidney function, blood culture growing Streptococcus pyogenes. 12/27/2024, Amiodrine drip was stopped by the primary team as the patient converted to sinus rhythm. Patient was having tachycardia heart rate of 113 however it was regular sinus. 12/31/24, EKG showed atrial flutter with RVR with 2:1 AV block. Restarted on amiodarone drip 0.5 mg/min around 1PM however patient continues to be in afib w RVR. 01/01/25, continues to be in atrial flutter with RVR with 2: 1 AV block. QTc noted to be 556 on EKG however taking consideration the QRS is widened, QTc is actually likely around 480 calculated by [facility] formula (HR 135, QT interval 8 boxes). Her BUN is elevated at 42 as well as hemoglobin is dropping down over the last couple of days which is contributing to the RVR. Patient mostly has upper GI bleed mostly secondary to oozing of blood from the possible stress-induced gastritis. Recommended primary team to obtain stool guaiac has been GI consult. Discussed this with the critical care attending 01/02/25 -Still continues to be in flutter with variable block and heart rate is better controlled patient continues to be sedated and intubated. Recommend to continue amiodarone drip at 1 mg per minute until patient is able to take oral medications removed 2.7 L during dialysis yesterday. Hemoglobin is still lower at 6.9 today. Primary team planning to transfer the patient to 2 units of PRBC and GI team has been consulted this morning for further evaluation. 01/04/2025?patient rhythm controlled on amiodarone drip. Appears to be in sinus tachycardia on telemetry. Heart rate also improved significantly, now in low 90s to 110s. Likely improved secondary to blood transfusions. See anemia workup by GI below. Plan - Continue amiodarone drip to 1 mg/min for rhythm control. Recommend EKG daily to monitor QTc. - Acceptable to hold medication for rate control at this time. Recommend starting metopropol tartrate 12.5mg q8hr for additional rate and BP control. Uptitrate as BP permits. Will continue to work towards GDMT management as tolerated. ? Due to patient condition no invasive cardiac procedure will be done at this time ? Strict in and out ? Keep potassium and magnesium above 4 and 2 respectively within normal range. This will also help decrease QTc. #Normocytic anemia #Concern for acute GI bleed from stress induced gastritis Hgb downtrending during admission, note drop from 9.7 on 12/29 to 7.1 on 12/30. S/p 1 unit pRBC on 01/01 for Hgb 7.4. Hgb dropped to 6.9. 01/02/2025: Status post 2 units PRBC. Endoscopy showed esophagitis and gastritis characterized by erythema. GI does not believe so there is a drop in hemoglobin hematocrit was due to upper GI bleed. Colonoscopy 01/04/25: Showed internal hemorrhoids, entire colon is normal. - Hgb now stable, likely due to resolution of shock ? Continue to monitor hemoglobin #Distributive shock most likely secondary to sepsis, resolved #Sepsis secondary to left leg cellulitis #Toxic shock syndrome #Lower extremity lymphedema S/p IgG immunoglobulin Plan ? Primary team switched from clindamycin and meropenem, completed 10-day course with 2 days of IV CFX. ? Stable off norepinephrine drip and vasopressin for distributive shock, only on PRN. ?Off sedation and extubated #History of seizure disorder Patient on antiseizure meds #History of COPD Supplemental oxygen, BiPAP as needed, DuoNebs #Elevated bilirubin, elevated AST, hypoalbuminemia Secondary to toxic shock syndrome versus septic shock Follow primary team recommendations #Lactic acidosis improving s/p CRRT #YOU #Non-anion gap metabolic acidosis Thank you for your consultation, please do not hesitate to reach out if you have any question or concern Patient plan of care was discussed with the attending physician, Dr. Chapa. Obdulia Evans, PGY-1 Attending Provider Attestation/Addendum I have personally seen and examined the patient separately on the above date of service and discussed the plan of care with the resident. I reviewed the resident Dr. Obdulia Evans consultation progress note and agree with the resident findings and plan in the note above and have also edited the documentation to reflect my findings and plan. Alex Chapa M.D. Interventional Cardiology
--- NOTE | 2025-01-05 14:52 | ESPR_ITS ---
<Statement entered by Tima Gutierrez MD - 01/05/25 17:07> ICU downgrade for 54-year-old female past medical history morbid obesity, edema, insulin-dependent type 2 diabetes, HFrEF, seizure disorder who presented initially for cellulitis found to later have septic shock from toxic shock syndrome requiring IV pressors who developed ischemia of upper and lower extremities, necrosis. Patient was also intubated due to acute respiratory failure secondary to severe metabolic acidosis. She also required CRRT for extensive period of time due to the acidosis from acute tubular necrosis from distributive shock as noted above. Due to the patient's septic picture, she also developed atrial fibrillation. Cardiology was consulted and recommended amiodarone infusion at a rate of 1 mg/min. General surgery was consulted regarding the patient's toxic shock syndrome and lower extremity lesions; however, decision was made not to operate on the patient after several procedures were done to alleviate both pressure and delay formations noted. There was suspicion of GI bleed at which point GI was consulted and completed colonoscopy which showed internal hemorrhoids but no acute source of bleeding. On assessment on 01/05, patient remains tachycardic with a heart rate of 120 with Amio drip still present. Patient does awaken on questioning but appears extremely weak with necrosis noted on upper lip, bilateral lower and upper extremity phalanges. Bilateral lower extremities have multiple excoriations with erythema cellulitic changes. Patient has multi organ failure and family has been contacted regarding transitioning patient to hospice level of care. Will continue monitoring patient and continue goals of care discussion with patient's family. I have personally seen and examined the patient. I agree with the resident's assessment and plan as documented below. Tima Gutierrez DO PGY-2 Internal Medicine - [facility] Documentation for date of: 01/05/25 Subjective Subjective Interval history: Patient downgraded from ICU to telemetry on 01/05/2025. Patient's sepsis has been stabilized with blood pressure 107/59, IL 98, RR 18, temp 97.4 F, O2 sat 96% on NC 2 L. Patient no longer has leukocytosis with WBC 7.6, Hgb level stabilized with 9.0, platelets with 141. Patient's thrombocytopenia has been resolved. EGD and colonoscopy showed no GI bleeding. Lactic acid is stable with 2.5 and has been downtrending from its peak of 10.0 on 12/26. Patient's YOU has been improving with CR 0.5, BUN 29, eGFR>60. Patient has bilateral lower extremity erythema that is extending up to patient thigh and hip with yellow crusts on top. In addition to that, patient has necrosis on the patient's right fingers, left middle finger, and bilateral toes. Above-knee amputation has been discussed with general surgery however decided to continue on medical management as any surgical intervention would be extremely high risk for the patient. On examination, patient appears alert and was able to communicates through eye tracking and head shakes. Patient was extubated, but was still unable to communicate verbally. Patient will continue on amiodarone and Protonix drips. Patient is not on any antibiotics at this moment. Swallowing evaluation was done on 12/31/2024 which showed that patient is not ready for p.o. diet due to laryngeal penetration and odynophagia. Plan to discuss about goals of care with the patient's daughter tomorrow. Exam Vital Signs Temp Pulse Resp BP Pulse Ox O2 Del Method O2 Flow Rate 98.0 F 128 H 32 H 150/94 H 95 Room Air 6 01/05/25 04:00 01/05/25 14:00 01/05/25 14:00 01/05/25 14:00 01/05/25 14:00 01/04/25 19:00 01/04/25 12:06 FiO2 28 01/04/25 12:06 Narrative Exam General: Alert, Morbidly obese, Drowsy Eye: EOMI, normal conjunctiva, no scleral icterus HENT: Normocephalic, dry oral mucosa, necrotic tissue on philtrum, multiple nectoric spots on lips. Neck: Supple, non-tender, no JVD, no lymphadenopathy Lungs: Labored respirations, symmetric chest rise, Clear to auscultate bilaterally, No wheezing, rhonchi, crackles Heart: Peripheral pulses intact bilaterally, Regular Rate and Rhythm. Abdomen: Soft, non-tender, non-distended, no palpable masses Musculoskeletal: Bilateral lower extremity erythema extending to thighs reaching towards the hip and torso with yellow crusts on top. Necrotic bilateral toes, right fingers, left middle fingers. Discolored lesion around right buttock. Cold distal extremity, Mild oozing of yellow fluid. Skin: Cold distal extremity. Refer to MSK. Psychiatric: Cooperative, Awake and alert, Able to communicate through headshakes and eye movement Neuro: Cranial nerves II-XII grossly intact. Strength 1/5 throughout. Limited sensations in distal extremities. Objective Labs 01/06/25 10:50 01/06/25 10:50 Labs: Laboratory Results - last 24 hr 01/05/25 04:59 WBC 7.6 RBC 3.35 L Hgb 9.0 L Hct 29.0 L MCV 87 MCH 26.9 MCHC 31.0 RDW Std Deviation 52.6 H Plt Count 141 D Neut % (Auto) 76 Lymph % (Auto) 11 [place] % (Auto) 11 Eos % (Auto) 0 Baso % (Auto) 0 Neut # (Auto) 5.8 Lymph # (Auto) 0.9 L [place] # (Auto) 0.9 H Eos # (Auto) 0.0 Baso # (Auto) 0.0 Immature Gran # (Auto) 0.13 H Absolute Nucleated RBC 0.00 Immature Gran % 2 H Nucleated RBC % 0 Sodium 142 Potassium 3.4 Chloride 102 Carbon Dioxide 32.4 H Anion Gap 8 BUN 29 H Creatinine 0.5 L Estim Creat Clear Calc 185.4 eGFR > 60 BUN/Creatinine Ratio 58 H Glucose 100 Calculated Osmolality 288 Calcium 8.5 Corrected Calcium 9.5 Phosphorus 2.8 Magnesium 1.7 Iron 32 L TIBC 229 L Iron Saturation 13 L Unsat Iron Binding 197 L Total Bilirubin 0.6 AST 32 ALT 28 Alkaline Phosphatase 169 H D Total Protein 6.3 Albumin 2.8 L Globulin 3.5 Albumin/Globulin Ratio 0.8 L ABG Interpretation ABG results: 12/22/24 12/22/24 12/23/24 16:49 23:40 13:05 ABG pH 7.39 7.29 L D ABG pCO2 33 37 ABG pO2 60 L 73 L ABG HCO3 20 18 L ABG O2 Saturation 92 94 ABG Base Excess -5 L -8 L VBG pH 7.35 VBG pCO2 37 VBG pO2 27 VBG Base Excess -5 L 12/24/24 12/24/24 12/24/24 08:54 17:12 17:19 ABG pH 7.25 L 7.16 L* ABG pCO2 34 36 ABG pO2 166 H D 127 H D ABG HCO3 15 L 13 L ABG O2 Saturation 100 H 99 H ABG Base Excess -11 L -15 L VBG pH 7.12 L VBG pCO2 42 VBG pO2 44 VBG Base Excess -15 L 12/24/24 12/24/24 12/25/24 19:45 22:40 04:47 ABG pH 7.10 L* 7.21 L D 7.36 D ABG pCO2 50 H D 38 D 37 ABG pO2 249 H D 249 H 191 H D ABG HCO3 15 L 15 L 21 ABG O2 Saturation 100 H 100 H 100 H ABG Base Excess -14 L -12 L -4 L VBG pH VBG pCO2 VBG pO2 VBG Base Excess 12/25/24 12/25/24 12/26/24 15:59 19:55 04:10 ABG pH 7.41 7.41 7.36 ABG pCO2 37 39 37 ABG pO2 128 H D 123 H 99 D ABG HCO3 23 24 21 ABG O2 Saturation 100 H 99 H 98 ABG Base Excess -1 0 -4 L VBG pH VBG pCO2 VBG pO2 VBG Base Excess 12/27/24 12/27/24 12/28/24 04:08 09:45 04:14 ABG pH 7.47 H D 7.42 7.39 ABG pCO2 36 41 45 ABG pO2 82 L 97 114 H ABG HCO3 26 27 H 27 H ABG O2 Saturation 98 99 H 99 H ABG Base Excess 2 2 2 VBG pH VBG pCO2 VBG pO2 VBG Base Excess 12/29/24 12/30/24 12/31/24 04:30 04:50 04:20 ABG pH 7.38 7.37 7.39 ABG pCO2 46 47 45 ABG pO2 109 H 121 H 83 D ABG HCO3 27 H 27 H 27 H ABG O2 Saturation 99 H 99 H 97 ABG Base Excess 1 1 2 VBG pH VBG pCO2 VBG pO2 VBG Base Excess 01/01/25 01/02/25 01/03/25 04:38 04:13 04:52 ABG pH 7.41 7.43 7.47 H ABG pCO2 47 45 43 ABG pO2 100 92 131 H D ABG HCO3 30 H 29 H 31 H ABG O2 Saturation 99 H 99 H 100 H ABG Base Excess 5 H 4 H 7 H VBG pH VBG pCO2 VBG pO2 VBG Base Excess 01/04/25 09:00 ABG pH 7.48 H ABG pCO2 45 ABG pO2 74 L D ABG HCO3 33 H ABG O2 Saturation 94 ABG Base Excess 8 H VBG pH VBG pCO2 VBG pO2 VBG Base Excess Quality Measures Quality Measures VTE prophylaxis Assessment & Plan Assessment Current Active Medications: Generic Name Dose Route Start Last Admin Trade Name Freq PRN Reason Stop Dose Admin Albuterol/Ipratropium 3 ml 12/23/24 09:36 Albuterol/Ipratropium (Duoneb) Rt Ginny 3 Ml Nebu INH 01/22/25 07:44 Q8HRRT PRN wheezing Clotrimazole 0 gm 12/23/24 09:00 01/05/25 09:00 Clotrimazole Cr 1% 30 Gm Tube TOP 01/22/25 08:59 1 applicatio BID TRACY Administration Dextrose 25 ml 12/22/24 17:09 12/25/24 23:07 Dextrose 50%-Water Inj 50 Ml Syringe IV 01/21/25 17:08 25 ml Q15MIN PRN Administration BG 50-70 responsive npo pt Dextrose 50 ml 12/22/24 17:09 12/25/24 14:03 Dextrose 50%-Water Inj 50 Ml Syringe IV 01/21/25 17:08 50 ml Q15MIN PRN Administration BG <50 OR BG <70 & pt unresponsive Glucagon 1 mg 12/22/24 17:09 Glucagon Inj 1 Mg Vial IM Q15MIN PRN BG <70, and no IV access Heparin Sodium (Porcine) 7,500 unit 12/23/24 14:00 01/05/25 05:14 Heparin Sod Inj 5000 Unit/Ml Vial SC 01/06/25 13:59 7,500 unit Q8HR TRACY Administration Hydromorphone HCl 1 mg 01/04/25 18:44 Hydromorphone Inj 2 Mg/Ml Vial IVP 01/09/25 18:43 Q4HR PRN Pain (1-6) Amiodarone HCl/Dextrose 360 mg in 200 mls @ 33.333 mls/hr 01/05/25 14:30 Nexterone Ivpb IV 01/08/25 14:29 .Q6H TRACY Insulin Degludec 25 unit 01/03/25 09:00 01/04/25 08:26 Insulin Degludec 5 Unit/0.05 Ml (Per 5 Units) SC 02/02/25 08:59 Not Given On Hold: 01/04/25 08:42 QDAY [facility] Insulin Human Lispro 0 unit 01/01/25 18:00 01/05/25 05:18 Insulin Lispro (Admelog) 1 Unit/0.01 Ml Unit SC 01/31/25 17:59 Not Given Q6HR [facility] Protocol Neomycin/Polymyxin/Bacitracin 0 gm 01/04/25 22:00 01/05/25 05:14 Mehul/Poly/Ethan (Neosporin) Oint 15 Gm Tube TOP 01/11/25 21:59 1 applicatio TID [facility] Administration Ondansetron HCl 4 mg 12/22/24 17:09 Ondansetron Inj 2 Mg/Ml Inj 2 Ml IVP 01/21/25 17:08 Q6H PRN NAUSEA OR VOMITING Protocol Plan 54-year-old female with past medical history of prior NH?, Insulin-dependent type 2 diabetes, lymphedema, lipedema, asthma, epilepsy, morbid obesity, nonambulatory for 9 years, wheelchair-bound presenting to the ED on 12/22 with left lower extremity pain and oozing. Admitted to ICU for management of cellulitis and shock. Patient has been stabilized and has been downgraded to [facility] on 01/05 #Cellulitis 2/2 Streptococcus pyogenes bacteremia ? Resolving #Distributive Shock-Resolving #Lactic acidosis-Resolving #2/2 Toxic Shock Syndrome #Leukocytosis - Resolved #Coagulopathy 2/2 toxic shock syndrome - Resolved -On admission, lactic acid: 7.6, peaked to 10.0 (at 12/26), now down trending to 2.5 -On admission, WBC: 5.8, peaked to 52.9 (at 12/31), now down trending to 7.6 -Blood Cx (12/22/2024): Youssef-sensitive Streptococcus pyogenes (Group A Streptococcus) x2/2 -Likely main etiology of sepsis with toxic shock syndrome. -Timeline of antibiotic regimen given in ICU detailed below: 1. IV vancomycin dosed by pharmacy [12/22-12/25, discontinued due to MRSA(-)] 2. IV clindamycin 600 mg q8HR [12/22-12/30, dc'd due to concern for Drug induced Thrombocytopenia and no longer needed for TSS] 3. IV cefepime 2 gm q12HR [12/22-12/24, discontinued after TSS became favored diagnosis] 4. IV meropenem 1000 mg q8HR [12/24-12/30, dc'd due to possible Drug induced Thrombocytopenia] 5. IV Ceftriaxone 2 g qday [12/30 - 01/01 for total ABX course of 10 days] -Blood Cx (12/28): Coag Negative Staph Plan: -Continue Would care management -Bilateral Above Knee Amputation (AKA) has been discussed, but currently undecided. #Atrial fibrillation w/ RVR #Acute systolic and diastolic dysfunction w/ mildly reduced EF [40-45%] -12/22 echocardiogram showed reduced EF of 45% -Episodes of A fib w/ RVR during ICU. Plan: -Patient on Amiodarone drip #YOU 2/2 Distributive Shock #ATN -On admission, BUN:14, Cr: 1.8 (baseline 0.7), eGFR:33 -Likely combination of pre-renal and intrinsic cause of YOU due to distributive shock and infection. -Hemodialysis sessions: 12/24, 12/26, 12/27, 12/29, 12/31, 01/01 -Urine Output: 1.12L Plan: -Strict I's & O's -Avoid nephrotoxins -Renally dose medications #GI bleed R/O #Anemia, Microcytic -Patient has Chronic Anemia with trending down hemoglobin. -Throughout stay in ICU, risk of stress ulcers with thrombocytopenia, coagulopathy, intubation, critical illness. -Received total 3 Blood transfusions -EGD 01/02 showed gastritis and no bleeding -Colonoscopy 01/04 showed internal hemorrhoids with normal colon -Current Hgb: 9.0 Plan: -Continue to monitor Hgb and sign of bleeding #Necrotic distal digits -Necrosis of distal right fingers, distal left middle finger, and distal right toes. -Likely due to prolonged usage of high dose pressors during events of shock. -Bilateral upper extremity duplex US (01/03) showed no occlusive arterial disease. Plan: -Per general surgery, continue to monitor. #Acute respiratory failure with Hypoxia -Resolved #2/2 Severe Metabolic acidosis - Resolved -Patient discontinued intubation on 01/04 #Thrombocytopenia- Resolved #Hyperglycemia- Resolved #Constipation- Resolved Disposition: Tele Diet: NPO GI prophylaxis: IV protonix DVT prophylaxis: Currently none d/t concern for GI bleed. Code: DNR Assessment and plan discussed with my attending physician Dr. Hylton and Dr. Gutierrez (PGY-3) Dr. Avelar (PGY-1) - Internal medicine resident Attending Provider Attestation/Addendum I attest that I was physically present for the evaluation, physical examination, lab and imaging review of the patient with the residents. I discussed the case with the residents and agree with the findings and plans of care as documented above. Ezequiel Hylton MD
--- NOTE | 2025-01-05 15:49 | PC.SS ---
Update: Speech therapy conducted with patient. Dialysis held today. Patient to downgrade to Tele today.
--- NOTE | 2025-01-05 16:24 | ESPR_ITS ---
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 (01/01-01/02) -Continue to monitor cbc, signs/symptoms of bleeding #Constipation, resolved Patient had a brown loose BM 01/03 Rx: -Abd XR 01/01 showed Moderate colonic ileus, no obstruction -Senna syrup via G-tube ordered -Active bowel sounds RRx: -If patient does not have bowel movement by tomorrow, consider enema #Isolated ALP elevation, improving DDx: -In the setting of ongoing toxic shock syndrome, AST/ALT were initially elevated, down trended to WNL. Dx: -Alk phos has been steadily elevated, likely due to increased WBC. -Alk phos downtrending Endocrine #Hyperglycemia, improving DDx: -Likely due to Steroid use. Dx: -A1c 12/23/2024 of 5.6, previous one in system is from 2020 at 5.4. -No hemoglobin A1c recorded in [facility] medical records actually meeting criteria for T2DM -Glucose continues to be in good range, however, patient has been NPO. Rx: -Holding Insulin Degludec to 25 u SC qday while NPO (colonoscopy) -Lispro sliding scale q6hr -Tube feeds of 60 mL / hr and 30 mL/hr flushes if no IVF (held) -Blood sugar check q6HR Heme #Thrombocytopenia (improving) Concern for drug induced vs reactive to acute illness Dx: -PLT continue to be low, trending up without transfusions. 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) pending (contacted lab 12/31, confirmed it is still pending as a send out) Rx: - s/p KCentra 5,000 U x 1 on 12/23/24 (protein C concentrates [Ceprotin], which is the [id number] treatment for this diagnosis, is unavailable here) #Leukocytosis, improved 2/2 #Leukemoid reaction In the setting of ongoing toxic shock syndrome, infection, and steroid medications However, has continued to uptrend while on antibiotics for treatment of toxic shock syndrome Currently suspect this is a benign leukemoid reaction in the setting of acute illness DDx: occult infection due to bacterial (Clostridioides difficile from clindamycin use) or commensal fungal overgrowth Dx: -WBC 11.6 (33) -Patient remains afebrile -Blood cx / final grew Coag negative Staph (12/28) #Anemia, microcytic Likely due to MALINA, chart review reveals chronic. Hgb stable since receving pRBC infusions Dx: -Hgb 8.8 post transfusion 3 units total Rx: -Will continue to monitor hgb and for signs of bleeding. RRx: -GI consulted, EGD 01/02, colonscopy 01/04 negative for bleed #Coagulopathy 2/2 toxic shock syndrome - possible DIC, resolving Patient initially had elevated INR, elevated D-Dimer, and elevated fibrinogen early in her ICU admission which suggested the presence of low-level DIC Dx: -Elevated INR, elevated D-Dimer, and elevated fibrinogen suggestive of low level DIC Rx: -Consider trending coagulation panels RRx: -PT, APTT, fibrinogen, and D-dimer remain elevated at this time but stable ID #Cellulitis #Streptococcus pyogenes bacteremia #Chronic bilateral lower extremity lymphedema Likely source of sepsis and precipitating toxic shock syndrome As mentioned earlier in the Cardiovascular section, clindamycin is unique as an antibiotic for treatment of TSS in that it binds to the 50S ribosomal subunit of bacteria and directly suppresses synthesis of exotoxins like Toxic Shock Syndrome Toxin-1 (TSST-1) and enterotoxins produced by Streptococcus pyogenes Timeline of antibiotic regimen detailed below: 1. IV vancomycin dosed by pharmacy [12/22-12/25, discontinued due to MRSA(-)] 2. IV clindamycin 600 mg q8HR [12/22-12/30, dc'd due to concern for Drug induced Thrombocytopenia and no longer needed for TSS] 3. IV cefepime 2 gm q12HR [12/22-12/24, discontinued after TSS became favored diagnosis] 4. IV meropenem 1000 mg q8HR [12/24-12/30, dc'd due to possible Drug induced Thrombocytopenia] 5. IV Ceftriaxone 2 g qday [12/30 - 01/01 for total ABX course of 10 days] Dx: -12/22 BCx (04/01) grew zaman-sensitive Streptococcus pyogenes (Group A Streptococcus) -12/31 Final Bcx show Coag Negative Staph Rx: -Continuing Wound care management -Surgery consulted for evaluation for debridement and/or amputation Disposition: Downgrading to floors; Extubated 01/04 DVT prophylaxis: Heparin 7500 q8HR (held due to concern of GI bleed) GI prophylaxis: IV Protonix infusion Diet: NPO (failed swallow) Pitts: Present Lines: Peripheral IV, Central IV, arterial line Antibiotics: None CODE STATUS: DNR (changed 01/03) Patient plan of care was discussed with the attending physician, Dr. Donovan and senior resident Dr. Nivia Dye MD PGY-1 Attending Provider Attestation/Addendum Patient seen and examined resident, agree with above. In brief this is a 50-year-old female who was extubated yesterday and is currently doing well. She has been in the ICU for toxic shock syndrome and septic shock. She has been off vasopressors for many days. 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 These are advancing towards dry gangrene. Discussed with surgery and no surgical intervention required at this very point in time. Continue with wound care. She has undergone a swallow evaluation with speech that she has not passed. Will reattempt tomorrow. Currently she is doing well and stable for downgrade. Case discussed with ICU team Labs, imaging and records reviewed Approximately 35 minutes required for evaluation, exam, review, intervention, discussion and formulation of plan of care
--- NOTE | 2025-01-05 20:36 | PD.IMPROG ---
Documentation for date of: 01/05/25 Subjective Subjective Interval history: Patient evaluated hemoglobin hematocrit 9.0 and 29.0 Exam Vital Signs Temp Pulse Resp BP Pulse Ox O2 Del Method O2 Flow Rate 97.9 F 128 H 12 136/88 H 96 Nasal Cannula 2 01/05/25 20:00 01/05/25 20:00 01/05/25 20:00 01/05/25 20:00 01/05/25 20:00 01/05/25 20:00 01/05/25 20:00 FiO2 28 01/04/25 12:06 Objective Labs 01/05/25 04:59 01/05/25 04:59 Labs: Laboratory Results - last 24 hr 01/05/25 04:59 WBC 7.6 RBC 3.35 L Hgb 9.0 L Hct 29.0 L MCV 87 MCH 26.9 MCHC 31.0 RDW Std Deviation 52.6 H Plt Count 141 D Neut % (Auto) 76 Lymph % (Auto) 11 [place] % (Auto) 11 Eos % (Auto) 0 Baso % (Auto) 0 Neut # (Auto) 5.8 Lymph # (Auto) 0.9 L [place] # (Auto) 0.9 H Eos # (Auto) 0.0 Baso # (Auto) 0.0 Immature Gran # (Auto) 0.13 H Absolute Nucleated RBC 0.00 Immature Gran % 2 H Nucleated RBC % 0 Sodium 142 Potassium 3.4 Chloride 102 Carbon Dioxide 32.4 H Anion Gap 8 BUN 29 H Creatinine 0.5 L Estim Creat Clear Calc 185.4 eGFR > 60 BUN/Creatinine Ratio 58 H Glucose 100 Calculated Osmolality 288 Calcium 8.5 Corrected Calcium 9.5 Phosphorus 2.8 Magnesium 1.7 Iron 32 L TIBC 229 L Iron Saturation 13 L Unsat Iron Binding 197 L Total Bilirubin 0.6 AST 32 ALT 28 Alkaline Phosphatase 169 H D Total Protein 6.3 Albumin 2.8 L Globulin 3.5 Albumin/Globulin Ratio 0.8 L Impressions Impression: Gastritis Internal hemorrhoids Very much stable hemoglobin hematocrit Continue current management ABG Interpretation ABG results: 12/22/24 12/22/24 12/23/24 16:49 23:40 13:05 ABG pH 7.39 7.29 L D ABG pCO2 33 37 ABG pO2 60 L 73 L ABG HCO3 20 18 L ABG O2 Saturation 92 94 ABG Base Excess -5 L -8 L VBG pH 7.35 VBG pCO2 37 VBG pO2 27 VBG Base Excess -5 L 12/24/24 12/24/24 12/24/24 08:54 17:12 17:19 ABG pH 7.25 L 7.16 L* ABG pCO2 34 36 ABG pO2 166 H D 127 H D ABG HCO3 15 L 13 L ABG O2 Saturation 100 H 99 H ABG Base Excess -11 L -15 L VBG pH 7.12 L VBG pCO2 42 VBG pO2 44 VBG Base Excess -15 L 12/24/24 12/24/24 12/25/24 19:45 22:40 04:47 ABG pH 7.10 L* 7.21 L D 7.36 D ABG pCO2 50 H D 38 D 37 ABG pO2 249 H D 249 H 191 H D ABG HCO3 15 L 15 L 21 ABG O2 Saturation 100 H 100 H 100 H ABG Base Excess -14 L -12 L -4 L VBG pH VBG pCO2 VBG pO2 VBG Base Excess 12/25/24 12/25/24 12/26/24 15:59 19:55 04:10 ABG pH 7.41 7.41 7.36 ABG pCO2 37 39 37 ABG pO2 128 H D 123 H 99 D ABG HCO3 23 24 21 ABG O2 Saturation 100 H 99 H 98 ABG Base Excess -1 0 -4 L VBG pH VBG pCO2 VBG pO2 VBG Base Excess 12/27/24 12/27/24 12/28/24 04:08 09:45 04:14 ABG pH 7.47 H D 7.42 7.39 ABG pCO2 36 41 45 ABG pO2 82 L 97 114 H ABG HCO3 26 27 H 27 H ABG O2 Saturation 98 99 H 99 H ABG Base Excess 2 2 2 VBG pH VBG pCO2 VBG pO2 VBG Base Excess 12/29/24 12/30/24 12/31/24 04:30 04:50 04:20 ABG pH 7.38 7.37 7.39 ABG pCO2 46 47 45 ABG pO2 109 H 121 H 83 D ABG HCO3 27 H 27 H 27 H ABG O2 Saturation 99 H 99 H 97 ABG Base Excess 1 1 2 VBG pH VBG pCO2 VBG pO2 VBG Base Excess 1001/02/25 01/03/25 04:38 04:13 04:52 ABG pH 7.41 7.43 7.47 H ABG pCO2 47 45 43 ABG pO2 100 92 131 H D ABG HCO3 30 H 29 H 31 H ABG O2 Saturation 99 H 99 H 100 H ABG Base Excess 5 H 4 H 7 H VBG pH VBG pCO2 VBG pO2 VBG Base Excess 01/04/25 09:00 ABG pH 7.48 H ABG pCO2 45 ABG pO2 74 L D ABG HCO3 33 H ABG O2 Saturation 94 ABG Base Excess 8 H VBG pH VBG pCO2 VBG pO2 VBG Base Excess Assessment & Plan A&P Narrative # Drop in hemoglobin hematocrit etiology uncertain possible occult GI bleeding Consent will be obtained for possible fiberoptic esophagogastroduodenoscopy with possible biopsy therapeutic intervention under intravenous moderate sedation if negative will consider a fiberoptic colonoscopy After GoLytely prep # Other medical problems include metabolic encephalopathy Diabetes mellitus type 2 Atrial flutter/fibrillation on amiodarone drip Necrosis of the distal toes Mechanically ventilated Thank you very much for the opportunity to participate in the care of this patient Time Spent With Patient Time: Total time spent is greater than 50% in coordination of care (as documented) at patient's floor/unit and/or counseling patient: PROCEDURES: Arterial Line Size (Gauge): 20
[2025-01-06] VITALS (11 sets, daily range): BP systolic 132–157; BP diastolic 75–99; PULSE 62–128; RESP 17–99; TEMP 36.3–36.8; O2SAT 63–99; BMI 65.7
[2025-01-06] MEDS: AMIODARONE 360 MG IVPB 360 MG/200 ML BAG 33.333 MG IV (04:06)
[2025-01-06] MEDS: HEPARIN SOD INJ 5000 UNIT/ML VIAL 7500 UNIT SC (05:18)
--- NOTE | 2025-01-06 09:13 | PC.SS ---
Physician residents are requesting a goals of care meeting today. SS has contacted dtr, Brianna, phone# [phone] who is agreeable to goals of care meeting for 1pm by phone (dtr [place] of state). SS contacted patient's friend, Yves Cotto but he is unable to be present and will not be available by phone. Yves will contact SS to follow up.
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
--- NOTE | 2025-01-06 10:37 | ESPR_ITS ---
Documentation for date of: 01/06/25 Subjective Subjective Interval history: Patient was seen and assessed at bedside. Had no new complaints, days chest pain, shortness of breath, palpitations. Blood pressure was 149/82 this morning, ranging from 10 7-1 50s overnight. Heart rate initially elevated at 128 overnight, reduced to 68 around 4 AM, now rate controlled. Tachycardia on telemetry. Potassium 3.4, magnesium 1.7, recommend to replete. Decreased amiodarone 0.5 mg/min to avoid amiodarone toxicity. Ordered EKG to evaluate QTc. Patient has not able to swallow per speech therapy however recommend to transition to p.o. amiodarone when possible. Exam Vital Signs Temp Pulse Resp BP Pulse Ox O2 Del Method O2 Flow Rate 97.8 F 66 17 152/75 H 99 Room Air 2 01/06/25 08:00 01/06/25 08:00 01/06/25 08:00 01/06/25 08:00 01/06/25 08:00 01/06/25 08:00 01/06/25 00:00 FiO2 28 01/06/25 00:00 Narrative Exam Physical Exam General: Awake and in no acute distress. Able to answer questions appropriately. Morbidly obese female. Weak voice s/p extubation. HEENT: Normocephalic, atraumatic, mucous membranes moist. Dried blood on philtrum. Heart: Regular rate and rhythm, normal S1 and S2, no murmurs. Lungs: Congestion upper airways. Decreased breath sounds due to large body habitus. Abdomen: Soft, obese, nondistended, nontender, positive bowel sounds. No guarding or rebound tenderness. Neurologic: Alert and oriented x3, no gross neurological deficit, and patient able to move all 4 extremities. Extremities: Severe hyperkeratotic changes bilaterally. Majority of bullae have ruptured, wounds have been dressed. Cellulitis appears to be improving, withdrawing from marked borders. Objective Labs 01/06/25 10:50 01/06/25 10:50 ABG Interpretation ABG results: 12/22/24 12/22/24 12/23/24 16:49 23:40 13:05 ABG pH 7.39 7.29 L D ABG pCO2 33 37 ABG pO2 60 L 73 L ABG HCO3 20 18 L ABG O2 Saturation 92 94 ABG Base Excess -5 L -8 L VBG pH 7.35 VBG pCO2 37 VBG pO2 27 VBG Base Excess -5 L 12/24/24 12/24/24 12/24/24 08:54 17:12 17:19 ABG pH 7.25 L 7.16 L* ABG pCO2 34 36 ABG pO2 166 H D 127 H D ABG HCO3 15 L 13 L ABG O2 Saturation 100 H 99 H ABG Base Excess -11 L -15 L VBG pH 7.12 L VBG pCO2 42 VBG pO2 44 VBG Base Excess -15 L 12/24/24 12/24/24 12/25/24 19:45 22:40 04:47 ABG pH 7.10 L* 7.21 L D 7.36 D ABG pCO2 50 H D 38 D 37 ABG pO2 249 H D 249 H 191 H D ABG HCO3 15 L 15 L 21 ABG O2 Saturation 100 H 100 H 100 H ABG Base Excess -14 L -12 L -4 L VBG pH VBG pCO2 VBG pO2 VBG Base Excess 12/25/24 12/25/24 12/26/24 15:59 19:55 04:10 ABG pH 7.41 7.41 7.36 ABG pCO2 37 39 37 ABG pO2 128 H D 123 H 99 D ABG HCO3 23 24 21 ABG O2 Saturation 100 H 99 H 98 ABG Base Excess -1 0 -4 L VBG pH VBG pCO2 VBG pO2 VBG Base Excess 12/27/24 12/27/24 12/28/24 04:08 09:45 04:14 ABG pH 7.47 H D 7.42 7.39 ABG pCO2 36 41 45 ABG pO2 82 L 97 114 H ABG HCO3 26 27 H 27 H ABG O2 Saturation 98 99 H 99 H ABG Base Excess 2 2 2 VBG pH VBG pCO2 VBG pO2 VBG Base Excess 12/29/24 12/30/24 12/31/24 04:30 04:50 04:20 ABG pH 7.38 7.37 7.39 ABG pCO2 46 47 45 ABG pO2 109 H 121 H 83 D ABG HCO3 27 H 27 H 27 H ABG O2 Saturation 99 H 99 H 97 ABG Base Excess 1 1 2 VBG pH VBG pCO2 VBG pO2 VBG Base Excess 1001/02/25 01/03/25 04:38 04:13 04:52 ABG pH 7.41 7.43 7.47 H ABG pCO2 47 45 43 ABG pO2 100 92 131 H D ABG HCO3 30 H 29 H 31 H ABG O2 Saturation 99 H 99 H 100 H ABG Base Excess 5 H 4 H 7 H VBG pH VBG pCO2 VBG pO2 VBG Base Excess 01/04/25 09:00 ABG pH 7.48 H ABG pCO2 45 ABG pO2 74 L D ABG HCO3 33 H ABG O2 Saturation 94 ABG Base Excess 8 H VBG pH VBG pCO2 VBG pO2 VBG Base Excess Quality Measures Quality Measures VTE prophylaxis Assessment & Plan Assessment Current Active Medications: Generic Name Dose Route Start Last Admin Trade Name Freq PRN Reason Stop Dose Admin Albuterol/Ipratropium 3 ml 12/23/24 09:36 Albuterol/Ipratropium (Duoneb) Rt Ginny 3 Ml Nebu INH 01/22/25 07:44 Q8HRRT PRN wheezing Clotrimazole 0 gm 12/23/24 09:00 01/05/25 21:27 Clotrimazole Cr 1% 30 Gm Tube TOP 01/22/25 08:59 1 applicatio BID TRACY Administration Dextrose 25 ml 12/22/24 17:09 12/25/24 23:07 Dextrose 50%-Water Inj 50 Ml Syringe IV 01/21/25 17:08 25 ml Q15MIN PRN Administration BG 50-70 responsive npo pt Dextrose 50 ml 12/22/24 17:09 12/25/24 14:03 Dextrose 50%-Water Inj 50 Ml Syringe IV 01/21/25 17:08 50 ml Q15MIN PRN Administration BG <50 OR BG <70 & pt unresponsive Glucagon 1 mg 12/22/24 17:09 Glucagon Inj 1 Mg Vial IM Q15MIN PRN BG <70, and no IV access Heparin Sodium (Porcine) 7,500 unit 12/23/24 14:00 01/06/25 05:18 Heparin Sod Inj 5000 Unit/Ml Vial SC 01/06/25 13:59 7,500 unit Q8HR TRACY Administration Hydromorphone HCl 1 mg 01/04/25 18:44 Hydromorphone Inj 2 Mg/Ml Vial IVP 01/09/25 18:43 Q4HR PRN Pain (1-6) Amiodarone HCl/Dextrose 360 mg in 200 mls @ 16.667 mls/hr 01/06/25 10:12 Nexterone Ivpb IV 01/09/25 10:11 .Q12H [facility] Insulin Degludec 25 unit 01/03/25 09:00 01/04/25 08:26 Insulin Degludec 5 Unit/0.05 Ml (Per 5 Units) SC 02/02/25 08:59 Not Given On Hold: 01/04/25 08:42 QDAY [facility] Insulin Human Lispro 0 unit 01/01/25 18:00 01/06/25 05:57 Insulin Lispro (Admelog) 1 Unit/0.01 Ml Unit SC 01/31/25 17:59 Not Given Q6HR [facility] Protocol Neomycin/Polymyxin/Bacitracin 0 gm 01/04/25 22:00 01/06/25 05:52 Mehul/Poly/Ethan (Neosporin) Oint 15 Gm Tube TOP 01/11/25 21:59 1 applicatio TID [facility] Administration Ondansetron HCl 4 mg 12/22/24 17:09 Ondansetron Inj 2 Mg/Ml Inj 2 Ml IVP 01/21/25 17:08 Q6H PRN NAUSEA OR VOMITING Protocol Plan Patient is a 54-year-old female with past medical history of IDDM2, bilateral lower limb lymphedema, lipedema, asthma, epilepsy, morbid obesity, wheelchair- bound for 9 years, was brought to the ED on 12/22/24 for left lower extremity pain and clear cirrhosis fluid oozing. Patient was admitted to the ICU for distributive shock. Cardiology team was consulted because of new onset A-fib with RVR and newly diagnosed CHF. #Newly diagnosed HFrEF (40-45%, 11/2024) #New onset A-fib with RVR likely induced by shock state #Streptococcus pyogenes bacteremia 2/2 LLE cellulitis Patient presented with sepsis secondary to left leg cellulitis, her condition worsened to distributive shock. During her stay she developed A-fib with RVR, with no known hx of afib, we started the patient on amiodarone drip. Even though her body habitus echo was done and showed ejection fraction of 40 to 45%. With normal RV function. BNP was 204 which most likely skewed by patient obesity. Troponin was negative. 12/22/24 Echo showed Over all poor images due to body habitus and technically difficult study. Normal left ventricular size and function.Stage I diastolic dysfunction. Estimated ejection fraction is 40-45%. Normal right ventricular size and function. RVSP 39 mm Hg with RAP 8. Mild pulmonary HTN Trace MR and Mild TR. TDS due to patient morbid and laying on supine view, couldn't move. (patient had open wounds under breast) 12/25/2024 patient was started on CRRT due to worsening lactic acidosis and kidney function, blood culture growing Streptococcus pyogenes. 12/27/2024, Amiodrine drip was stopped by the primary team as the patient converted to sinus rhythm. Patient was having tachycardia heart rate of 113 however it was regular sinus. 12/31/24, EKG showed atrial flutter with RVR with 2:1 AV block. Restarted on amiodarone drip 0.5 mg/min around 1PM however patient continues to be in afib w RVR. 01/01/25, continues to be in atrial flutter with RVR with 2: 1 AV block. QTc noted to be 556 on EKG however taking consideration the QRS is widened, QTc is actually likely around 480 calculated by [facility] formula (HR 135, QT interval 8 boxes). Her BUN is elevated at 42 as well as hemoglobin is dropping down over the last couple of days which is contributing to the RVR. Patient mostly has upper GI bleed mostly secondary to oozing of blood from the possible stress- induced gastritis. Recommended primary team to obtain stool guaiac has been GI consult. Discussed this with the critical care attending 01/02/25 -Still continues to be in flutter with variable block and heart rate is better controlled patient continues to be sedated and intubated. Recommend to continue amiodarone drip at 1 mg per minute until patient is able to take oral medications removed 2.7 L during dialysis yesterday. Hemoglobin is still lower at 6.9 today. Primary team planning to transfer the patient to 2 units of PRBC and GI team has been consulted this morning for further evaluation. 01/04/2025?patient rhythm controlled on amiodarone drip. Appears to be in sinus tachycardia on telemetry. Heart rate also improved significantly, now in low 90s to 110s. Likely improved secondary to blood transfusions. See anemia workup by GI below. Plan - Decrease amiodarone drip to 0.5 mg/min for rhythm control. Ordered EKG to monitor QTc. Recommend to transition to p.o. amiodarone 200 mg twice daily when able to tolerate oral intake. -Heparin 7500 units q8hr - Recommend starting metopropol tartrate 12.5mg q8hr if BP permits. Will continue to work towards GDMT management as tolerated. ? Due to patient condition no invasive cardiac procedure will be done at this time ? Strict in and out ? Keep potassium and magnesium above 4 and 2 respectively within normal range. This will also help decrease QTc. #Normocytic anemia #Concern for acute GI bleed from stress induced gastritis Hgb downtrending during admission, note drop from 9.7 on 12/29 to 7.1 on 12/30. S/p 1 unit pRBC on 01/01 for Hgb 7.4. Hgb dropped to 6.9. 01/02/2025: Status post 2 units PRBC. Endoscopy showed esophagitis and gastritis characterized by erythema. GI does not believe so there is a drop in hemoglobin hematocrit was due to upper GI bleed. Colonoscopy 01/04/25: Showed internal hemorrhoids, entire colon is normal. Iron panel 01/05/2025: Iron, TIBC, iron saturation, unsaturated iron binding all low. - Hgb now stable, likely due to resolution of shock, however continues to be anemic. -Will defer anemia management to primary team. ? Continue to monitor hemoglobin #Distributive shock most likely secondary to sepsis, resolved #Sepsis secondary to left leg cellulitis #Toxic shock syndrome #Lower extremity lymphedema S/p IgG immunoglobulin Plan ? Primary team switched from clindamycin and meropenem, completed 10-day course with 2 days of IV CFX. ? Stable off norepinephrine drip and vasopressin for distributive shock, only on PRN. ?Off sedation and extubated #History of seizure disorder Patient on antiseizure meds #History of COPD Supplemental oxygen, BiPAP as needed, DuoNebs #Elevated bilirubin, elevated AST, hypoalbuminemia Secondary to toxic shock syndrome versus septic shock Follow primary team recommendations #Lactic acidosis improving s/p CRRT #YOU #Non-anion gap metabolic acidosis Thank you for your consultation, please do not hesitate to reach out if you have any question or concern Patient plan of care was discussed with the attending physician, Dr. Chapa. Obdulia Evans, PGY-1 Attending Provider Attestation/Addendum I have personally seen and examined the patient separately on the above date of service and discussed the plan of care with the resident. I reviewed the resident Dr. Obdulia Evans consultation progress note and agree with the resident findings and plan in the note above and have also edited the documentation to reflect my findings and plan. Alex Chapa M.D. Interventional Cardiology
[2025-01-06] MEDS: AMIODARONE 360 MG IVPB 360 MG/200 ML BAG 16.667 MG IV ×2 (11:02→20:42)
[2025-01-06 11:14] LABS: Basophils # (Auto) 0.0 Thou/mm3 (0.0-0.2); Basophils % (Auto) 0 % (0-2.5); Eosinophils # (Auto) 0.0 Thou/mm3 (0.0-0.5); Eosinophils % (Auto) 0 % (0-10); Hematocrit 29.2 % (36.0-46.0); Hemoglobin 9.0 g/dL (12.0-16.0); Immature Granulocytes Auto 0.09 Thou/mm3 (0.00-0.00); Lymphocytes # (Auto) 0.7 Thou/mm3 (1.0-4.8); Lymphocytes % (Auto) 9 % (10-50); Mean Corpuscular HGB Conc 30.8 g/dl (31.0-37.0); Mean Corpuscular Hemoglobin 26.9 pg (25.0-35.0); Mean Corpuscular Volume 87 fL (80-100); Monocytes # (Auto) 0.8 Thou/mm3 (0.0-0.8); Monocytes % (Auto) 10 % (0-12); Neutrophils # (Auto) 6.7 Thou/mm3 (1.8-7.7); Neutrophils % (Auto) 80 % (37-80); Nucleated Red Blood Cell # 0.00 Thou/mm3 (0.00-0.00); Nucleated Red Blood Cell % 0 /100 WBC (0); Platelet Count 172 Thou/mm3 (140-440); RDW Standard Deviation 53.5 fL (36.4-46.3); Red Blood Count 3.35 Miln/mm3 (4.00-5.20); White Blood Count 8.3 Thou/mm3 (3.6-11.0)
[2025-01-06 11:38] LABS: Alanine Aminotransferase 31 U/L (10-49); Albumin, Serum 3.0 gm/dL (3.5-5.0); Albumin/Globulin Ratio 0.8 (1.2-2.2); Alkaline Phosphatase 168 U/L (46-116); Anion Gap 9 (7-16); Aspartate Amino Transferase 34 U/L (0-34); BUN/Creatinine Ratio 56 Ratio (12-20); Bilirubin,Total 0.7 mg/dL (0.3-1.2); Blood Urea Nitrogen 28 mg/dL (9-23); Calcium 9.2 mg/dL (8.3-10.6); Calcium (Corrected) 10.0 mg/dL (8.5-10.1); Carbon Dioxide 30.8 mMol/L (20.0-31.0); Chloride 100 mMol/L (98-107); Creatinine (Component) 0.5 mg/dL (0.6-1.3); Estimated Creatinine Clearance 185.4 mL/min (>60); Globulin 3.7 gm/dL (2.3-3.5); Glucose 127 mg/dL (74-106); Magnesium 1.7 mg/dL (1.6-2.6); Osmolality,Calculated 286 (275-295); Phosphorous 3.4 mg/dL (2.4-5.1); Potassium 3.7 mMol/L (3.4-5.1); Sodium 140 mMol/L (136-145); Total Protein 6.7 gm/dL (5.7-8.2); eGFR > 60 See Note
--- NOTE | 2025-01-06 15:14 | ESPR_ITS ---
<Statement entered by Tima Gutierrez MD - 01/06/25 17:09> Patient seen and assessed in hospital bed with some improvement in mentation. Patient's speech evaluation shows some progression as she is now being able to tolerate dysphagia 3 diet, thickened fluids. Will start transitioning patient from IV amiodarone to p.o. amiodarone if she continues to improve on swallowing ability. Had goals of care discussion with patient's daughter who agrees on SNF placement once patient is medically cleared. Physical therapy will assess the patient and we await further recommendations. At this time surgery does not recommend any procedures but we will let the patient know that they can follow- up outpatient. Wound care ongoing and with plans to follow-up outpatient. Patient will also require anticoagulation at a later time for the atrial fibrillation as she has high risk for bleeding at this time. Holding off on GDMT as patient's blood pressure and heart rate on the softer side; moreover, outpatient cardiology recommendations inputted. Will continue monitoring the patient and expect discharge within the next 48 hours. I have personally seen and examined the patient. I agree with the resident's assessment and plan as documented below. Tima Gutierrez DO PGY-2 Internal Medicine - GME Documentation for date of: 01/06/25 Subjective Subjective Interval history: Today, patient is alert and was able to communicate through eye movement and head shakes. She was able to make sounds however could not talk most likely due to the prolonged intubation during ICU stay. Patient was still unable to move her extremities and limited sensations.Urine output 1.3L. Centeral line has been discontinued. Was able to have a discussion with patient's daughter about future goals of care and explained to the daughter that patient will be likely be discharged to SNF for 24 hour care, as the daughter lives out of town and cannot take care of the patient at home. Discussed with the patient's daughter the risks and benefits of anticoagulation therapy given the patient's history of A.fib. Explained that discontinuing blood thinners increases the risk of stroke, while restarting them may increase the risk of GI bleeding. The daughter was advised to tell the medical team which option the daughter prefers. The daughter was informed, the patient will likely need chronic wound care and years of recovery at SNF. Patient is currently on amidoarone drip. Based on swallowing test, she was able to tolerate thick liquid diet. Currently pending placement at [facility]. Will continue to monitor. Exam Vital Signs Temp Pulse Resp BP Pulse Ox O2 Del Method O2 Flow Rate 97.3 F 67 19 132/82 H 97 Room Air 2 01/06/25 12:00 01/06/25 12:00 01/06/25 12:00 01/06/25 12:00 01/06/25 12:00 01/06/25 08:00 01/06/25 00:00 FiO2 28 01/06/25 00:00 Narrative Exam General: Alert, Morbidly obese, Drowsy Eye: EOMI, normal conjunctiva, no scleral icterus HENT: Normocephalic, dry oral mucosa, necrotic tissue on philtrum, multiple nectoric spots on lips. Neck: Supple, non-tender, no JVD, no lymphadenopathy Lungs: Labored respirations, symmetric chest rise, Clear to auscultate bilaterally, No wheezing, rhonchi, crackles Heart: Peripheral pulses intact bilaterally, Regular Rate and Rhythm. Abdomen: Soft, non-tender, non-distended, no palpable masses Musculoskeletal: Bilateral lower extremity erythema extending to thighs reaching towards the hip and torso with yellow crusts on top. Necrotic bilateral toes, right fingers, left middle fingers. Discolored lesion around right buttock. Cold distal extremity, Mild oozing of yellow fluid. Skin: Cold distal extremity. Refer to [facility]. Psychiatric: Cooperative, Awake and alert, Able to communicate through headshakes and eye movement Neuro: Cranial nerves II-XII grossly intact. Strength 1/5 throughout. Limited sensations in distal extremities. Objective Labs 01/06/25 10:50 01/06/25 10:50 Labs: Laboratory Results - last 24 hr 01/06/25 10:50 WBC 8.3 RBC 3.35 L Hgb 9.0 L Hct 29.2 L MCV 87 MCH 26.9 MCHC 30.8 L RDW Std Deviation 53.5 H Plt Count 172 D Neut % (Auto) 80 Lymph % (Auto) 9 L [place] % (Auto) 10 Eos % (Auto) 0 Baso % (Auto) 0 Neut # (Auto) 6.7 Lymph # (Auto) 0.7 L [place] # (Auto) 0.8 Eos # (Auto) 0.0 Baso # (Auto) 0.0 Immature Gran # (Auto) 0.09 H Absolute Nucleated RBC 0.00 Immature Gran % 1 H Nucleated RBC % 0 Sodium 140 Potassium 3.7 Chloride 100 Carbon Dioxide 30.8 Anion Gap 9 BUN 28 H Creatinine 0.5 L Estim Creat Clear Calc 185.4 eGFR > 60 BUN/Creatinine Ratio 56 H Glucose 127 H Calculated Osmolality 286 Calcium 9.2 Corrected Calcium 10.0 Phosphorus 3.4 Magnesium 1.7 Total Bilirubin 0.7 AST 34 ALT 31 Alkaline Phosphatase 168 H Total Protein 6.7 Albumin 3.0 L Globulin 3.7 H Albumin/Globulin Ratio 0.8 L ABG Interpretation ABG results: 12/22/24 12/22/24 12/23/24 16:49 23:40 13:05 ABG pH 7.39 7.29 L D ABG pCO2 33 37 ABG pO2 60 L 73 L ABG HCO3 20 18 L ABG O2 Saturation 92 94 ABG Base Excess -5 L -8 L VBG pH 7.35 VBG pCO2 37 VBG pO2 27 VBG Base Excess -5 L 12/24/24 12/24/24 12/24/24 08:54 17:12 17:19 ABG pH 7.25 L 7.16 L* ABG pCO2 34 36 ABG pO2 166 H D 127 H D ABG HCO3 15 L 13 L ABG O2 Saturation 100 H 99 H ABG Base Excess -11 L -15 L VBG pH 7.12 L VBG pCO2 42 VBG pO2 44 VBG Base Excess -15 L 12/24/24 12/24/24 12/25/24 19:45 22:40 04:47 ABG pH 7.10 L* 7.21 L D 7.36 D ABG pCO2 50 H D 38 D 37 ABG pO2 249 H D 249 H 191 H D ABG HCO3 15 L 15 L 21 ABG O2 Saturation 100 H 100 H 100 H ABG Base Excess -14 L -12 L -4 L VBG pH VBG pCO2 VBG pO2 VBG Base Excess 12/25/24 12/25/24 12/26/24 15:59 19:55 04:10 ABG pH 7.41 7.41 7.36 ABG pCO2 37 39 37 ABG pO2 128 H D 123 H 99 D ABG HCO3 23 24 21 ABG O2 Saturation 100 H 99 H 98 ABG Base Excess -1 0 -4 L VBG pH VBG pCO2 VBG pO2 VBG Base Excess 12/27/24 12/27/24 12/28/24 04:08 09:45 04:14 ABG pH 7.47 H D 7.42 7.39 ABG pCO2 36 41 45 ABG pO2 82 L 97 114 H ABG HCO3 26 27 H 27 H ABG O2 Saturation 98 99 H 99 H ABG Base Excess 2 2 2 VBG pH VBG pCO2 VBG pO2 VBG Base Excess 12/29/24 12/30/24 12/31/24 04:30 04:50 04:20 ABG pH 7.38 7.37 7.39 ABG pCO2 46 47 45 ABG pO2 109 H 121 H 83 D ABG HCO3 27 H 27 H 27 H ABG O2 Saturation 99 H 99 H 97 ABG Base Excess 1 1 2 VBG pH VBG pCO2 VBG pO2 VBG Base Excess 01/01/25 01/02/25 01/03/25 04:38 04:13 04:52 ABG pH 7.41 7.43 7.47 H ABG pCO2 47 45 43 ABG pO2 100 92 131 H D ABG HCO3 30 H 29 H 31 H ABG O2 Saturation 99 H 99 H 100 H ABG Base Excess 5 H 4 H 7 H VBG pH VBG pCO2 VBG pO2 VBG Base Excess 01/04/25 09:00 ABG pH 7.48 H ABG pCO2 45 ABG pO2 74 L D ABG HCO3 33 H ABG O2 Saturation 94 ABG Base Excess 8 H VBG pH VBG pCO2 VBG pO2 VBG Base Excess Quality Measures Quality Measures VTE prophylaxis Assessment & Plan Assessment Current Active Medications: Generic Name Dose Route Start Last Admin Trade Name Brigida PRN Reason Stop Dose Admin Albuterol/Ipratropium 3 ml 12/23/24 09:36 Albuterol/Ipratropium (Duoneb) Rt Ginny 3 Ml Nebu INH 01/22/25 07:44 Q8HRRT PRN wheezing Clotrimazole 0 gm 12/23/24 09:00 01/05/25 21:27 Clotrimazole Cr 1% 30 Gm Tube TOP 01/22/25 08:59 1 applicatio BID TRACY Administration Dextrose 25 ml 12/22/24 17:09 12/25/24 23:07 Dextrose 50%-Water Inj 50 Ml Syringe IV 01/21/25 17:08 25 ml Q15MIN PRN Administration BG 50-70 responsive npo pt Dextrose 50 ml 12/22/24 17:09 12/25/24 14:03 Dextrose 50%-Water Inj 50 Ml Syringe IV 01/21/25 17:08 50 ml Q15MIN PRN Administration BG <50 OR BG <70 & pt unresponsive Glucagon 1 mg 12/22/24 17:09 Glucagon Inj 1 Mg Vial IM Q15MIN PRN BG <70, and no IV access Hydromorphone HCl 1 mg 01/04/25 18:44 Hydromorphone Inj 2 Mg/Ml Vial IVP 01/09/25 18:43 Q4HR PRN Pain (1-6) Amiodarone HCl/Dextrose 360 mg in 200 mls @ 16.667 mls/hr 01/06/25 10:12 01/06/25 11:02 Nexterone Ivpb IV 01/09/25 10:11 16.667 mls/hr .Q12H TRACY Administration Insulin Degludec 25 unit 01/03/25 09:00 01/04/25 08:26 Insulin Degludec 5 Unit/0.05 Ml (Per 5 Units) SC 02/02/25 08:59 Not Given On Hold: 01/04/25 08:42 QDAY TRACY Insulin Human Lispro 0 unit 01/01/25 18:00 01/06/25 11:53 Insulin Lispro (Admelog) 1 Unit/0.01 Ml Unit SC 01/31/25 17:59 Not Given Q6HR TRACY Protocol Neomycin/Polymyxin/Bacitracin 0 gm 01/04/25 22:00 01/06/25 05:52 Mehul/Poly/Ethan (Neosporin) Oint 15 Gm Tube TOP 01/11/25 21:59 1 applicatio TID TRACY Administration Ondansetron HCl 4 mg 12/22/24 17:09 Ondansetron Inj 2 Mg/Ml Inj 2 Ml IVP 01/21/25 17:08 Q6H PRN NAUSEA OR VOMITING Protocol Plan 54-year-old female with past medical history of prior CT?, Insulin-dependent type 2 diabetes, lymphedema, lipedema, asthma, epilepsy, morbid obesity, nonambulatory for 9 years, wheelchair-bound presenting to the ED on 12/22 with left lower extremity pain and oozing. Admitted to ICU for management of cellulitis and shock. Patient has been stabilized and has been downgraded to [facility] on 01/05 #Cellulitis 2/2 Streptococcus pyogenes bacteremia ? Resolving #Distributive Shock-Resolving #Lactic acidosis-Resolving #2/2 Toxic Shock Syndrome #Leukocytosis - Resolved #Coagulopathy 2/2 toxic shock syndrome - Resolved -On admission, lactic acid: 7.6, peaked to 10.0 (at 12/26), now down trending to 2.5 -On admission, WBC: 5.8, peaked to 52.9 (at 12/31), now down trending to 7.6 -Blood Cx (12/22/2024): Youssef-sensitive Streptococcus pyogenes (Group A Streptococcus) x2/2 -Likely main etiology of sepsis with toxic shock syndrome. -Timeline of antibiotic regimen given in ICU detailed below: 1. IV vancomycin dosed by pharmacy [12/22-12/25, discontinued due to MRSA(-)] 2. IV clindamycin 600 mg q8HR [12/22-12/30, dc'd due to concern for Drug induced Thrombocytopenia and no longer needed for TSS] 3. IV cefepime 2 gm q12HR [12/22-12/24, discontinued after TSS became favored diagnosis] 4. IV meropenem 1000 mg q8HR [12/24-12/30, dc'd due to possible Drug induced Thrombocytopenia] 5. IV Ceftriaxone 2 g qday [12/30 - 01/01 for total ABX course of 10 days] -Blood Cx (12/28): Coag Negative Staph Plan: -Continue Would care management -Bilateral Above Knee Amputation (AKA) has been discussed, but currently undecided. #Atrial fibrillation w/ RVR #Acute systolic and diastolic dysfunction w/ mildly reduced EF [40-45%] -12/22 echocardiogram showed reduced EF of 45% -Episodes of A fib w/ RVR during ICU. Plan: -Patient on Amiodarone drip #YOU 2/2 Distributive Shock #ATN -On admission, BUN:14, Cr: 1.8 (baseline 0.7), eGFR:33 -Likely combination of pre-renal and intrinsic cause of YOU due to distributive shock and infection. -Hemodialysis sessions: 12/24, 12/26, 12/27, 12/29, 12/31, 01/01 -Urine Output: 1.3L Plan: -Given stability, hemodialysis unlikely -Strict I's & O's -Avoid nephrotoxins -Renally dose medications #GI bleed R/O #Anemia, Microcytic -Patient has Chronic Anemia with trending down hemoglobin. -Throughout stay in ICU, risk of stress ulcers with thrombocytopenia, coagulopathy, intubation, critical illness. -Received total 3 Blood transfusions -EGD 01/02 showed gastritis and no bleeding -Colonoscopy 01/04 showed internal hemorrhoids with normal colon -Current Hgb: 9.0 Plan: -Continue to monitor Hgb and sign of bleeding #Necrotic distal digits -Necrosis of distal right fingers, distal left middle finger, and distal right toes. -Likely due to prolonged usage of high dose pressors during events of shock. -Bilateral upper extremity duplex US (01/03) showed no occlusive arterial disease. Plan: -Per general surgery, continue to monitor. #Acute respiratory failure with Hypoxia -Resolved #2/2 Severe Metabolic acidosis - Resolved -Patient discontinued intubation on 01/04 #Thrombocytopenia- Resolved #Hyperglycemia- Resolved #Constipation- Resolved Disposition: Tele Diet: Consistent Carbohydrate GI prophylaxis: IV protonix DVT prophylaxis: Currently none d/t concern for GI bleed. Code: DNR Assessment and plan discussed with my attending physician Dr. Hylton and Dr. Gutierrez (PGY-3) Dr. Avelar (PGY-1) - Internal medicine resident Attending Provider Attestation/Addendum I attest that I was physically present for the evaluation, physical examination, lab and imaging review of the patient with the residents. I discussed the case with the residents and agree with the findings and plans of care as documented above. Patient seen and examined at bedside this morning. She is a 54 years old morbidly obese female with BMI of 64.7 initially admitted for lower extremity cellulitis and generalized weakness. Was upgraded to ICU, was on mechanical ventilator and vasopressors. Patient was extubated on 01/04/2025 and was transferred to telemetry yesterday for further management. She has already completed antibiotic regimen. At bedside, patient is more alert and awake compared to yesterday, appears to be able to comprehend and able to follow command but was unable to speak possibly secondary to prolonged intubation. Appears comfortable. Has been making good amount of urine. Continues to be on amiodarone drip for A-fib with RVR. Was able to pass swallow evaluation and started on diet. Discussed with patient's daughter, daughter is in agreement for patient being discharged to SNF for 24/7 care as patient lives alone and will not be able to take care of herself at current state. Continues to have bilateral lower extremity wounds, covered in dressing. 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 Wound care have been following closely, appreciate recommendations. Cardiology, GI, and nephrology following closely, appreciate recommendations. Plan to discuss with general surgery regarding need for surgical procedures on limbs, if not indicated currently, we will plan for discharge in next 24 to 48 hours to SNF. Ezequiel Hylton MD
--- NOTE | 2025-01-06 15:45 | PC.PT ---
PT eval was attempted at 15:45 but patient was undergoing wound care services. CONNIE Underwood asked PT to defer to tomorrow 01/07/25. Will re-attempt PT eval tomorrow.
--- NOTE | 2025-01-06 15:52 | PC.SS ---
Per bedside nurseKj (after reviewing patient's chart) pt is not on psych, anxiety, or depression medications (including home meds). PASRR assessment has been completed.
[2025-01-06] MEDS: CLOTRIMAZOLE CR 1% 30 GM TUBE TOP ×2 (16:10→22:29)
--- NOTE | 2025-01-06 19:20 | ESPR_ITS ---
Documentation for date of: 01/06/25 Subjective Subjective Interval history: Hemoglobin hematocrit 9.0 and 29.2 Exam Vital Signs Temp Pulse Resp BP Pulse Ox O2 Del Method O2 Flow Rate 97.7 F 68 18 157/99 H 63 L Room Air 2 01/06/25 16:00 01/06/25 16:00 01/06/25 16:00 01/06/25 16:00 01/06/25 16:00 01/06/25 16:00 01/06/25 00:00 FiO2 28 01/06/25 00:00 Objective Labs 01/06/25 10:50 01/06/25 10:50 Labs: Laboratory Results - last 24 hr 01/06/25 10:50 WBC 8.3 RBC 3.35 L Hgb 9.0 L Hct 29.2 L MCV 87 MCH 26.9 MCHC 30.8 L RDW Std Deviation 53.5 H Plt Count 172 D Neut % (Auto) 80 Lymph % (Auto) 9 L [place] % (Auto) 10 Eos % (Auto) 0 Baso % (Auto) 0 Neut # (Auto) 6.7 Lymph # (Auto) 0.7 L [place] # (Auto) 0.8 Eos # (Auto) 0.0 Baso # (Auto) 0.0 Immature Gran # (Auto) 0.09 H Absolute Nucleated RBC 0.00 Immature Gran % 1 H Nucleated RBC % 0 Sodium 140 Potassium 3.7 Chloride 100 Carbon Dioxide 30.8 Anion Gap 9 BUN 28 H Creatinine 0.5 L Estim Creat Clear Calc 185.4 eGFR > 60 BUN/Creatinine Ratio 56 H Glucose 127 H Calculated Osmolality 286 Calcium 9.2 Corrected Calcium 10.0 Phosphorus 3.4 Magnesium 1.7 Total Bilirubin 0.7 AST 34 ALT 31 Alkaline Phosphatase 168 H Total Protein 6.7 Albumin 3.0 L Globulin 3.7 H Albumin/Globulin Ratio 0.8 L Impressions Impression: Gastritis Esophagitis Internal hemorrhoids Continue to monitor CBC ABG Interpretation ABG results: 12/22/24 12/22/24 12/23/24 16:49 23:40 13:05 ABG pH 7.39 7.29 L D ABG pCO2 33 37 ABG pO2 60 L 73 L ABG HCO3 20 18 L ABG O2 Saturation 92 94 ABG Base Excess -5 L -8 L VBG pH 7.35 VBG pCO2 37 VBG pO2 27 VBG Base Excess -5 L 09/26/25 09/26/25 09/26/25 08:54 17:12 17:19 ABG pH 7.25 L 7.16 L* ABG pCO2 34 36 ABG pO2 166 H D 127 H D ABG HCO3 15 L 13 L ABG O2 Saturation 100 H 99 H ABG Base Excess -11 L -15 L VBG pH 7.12 L VBG pCO2 42 VBG pO2 44 VBG Base Excess -15 L 12/24/24 12/24/24 12/25/24 19:45 22:40 04:47 ABG pH 7.10 L* 7.21 L D 7.36 D ABG pCO2 50 H D 38 D 37 ABG pO2 249 H D 249 H 191 H D ABG HCO3 15 L 15 L 21 ABG O2 Saturation 100 H 100 H 100 H ABG Base Excess -14 L -12 L -4 L VBG pH VBG pCO2 VBG pO2 VBG Base Excess 12/25/24 12/25/24 12/26/24 15:59 19:55 04:10 ABG pH 7.41 7.41 7.36 ABG pCO2 37 39 37 ABG pO2 128 H D 123 H 99 D ABG HCO3 23 24 21 ABG O2 Saturation 100 H 99 H 98 ABG Base Excess -1 0 -4 L VBG pH VBG pCO2 VBG pO2 VBG Base Excess 12/27/24 12/27/24 12/28/24 04:08 09:45 04:14 ABG pH 7.47 H D 7.42 7.39 ABG pCO2 36 41 45 ABG pO2 82 L 97 114 H ABG HCO3 26 27 H 27 H ABG O2 Saturation 98 99 H 99 H ABG Base Excess 2 2 2 VBG pH VBG pCO2 VBG pO2 VBG Base Excess 12/29/24 12/30/24 12/31/24 04:30 04:50 04:20 ABG pH 7.38 7.37 7.39 ABG pCO2 46 47 45 ABG pO2 109 H 121 H 83 D ABG HCO3 27 H 27 H 27 H ABG O2 Saturation 99 H 99 H 97 ABG Base Excess 1 1 2 VBG pH VBG pCO2 VBG pO2 VBG Base Excess 01/01/25 01/02/25 01/03/25 04:38 04:13 04:52 ABG pH 7.41 7.43 7.47 H ABG pCO2 47 45 43 ABG pO2 100 92 131 H D ABG HCO3 30 H 29 H 31 H ABG O2 Saturation 99 H 99 H 100 H ABG Base Excess 5 H 4 H 7 H VBG pH VBG pCO2 VBG pO2 VBG Base Excess 01/04/25 09:00 ABG pH 7.48 H ABG pCO2 45 ABG pO2 74 L D ABG HCO3 33 H ABG O2 Saturation 94 ABG Base Excess 8 H VBG pH VBG pCO2 VBG pO2 VBG Base Excess Assessment & Plan A&P Narrative # Drop in hemoglobin hematocrit etiology uncertain possible occult GI bleeding Consent will be obtained for possible fiberoptic esophagogastroduodenoscopy with possible biopsy therapeutic intervention under intravenous moderate sedation if negative will consider a fiberoptic colonoscopy After GoLytely prep # Other medical problems include metabolic encephalopathy Diabetes mellitus type 2 Atrial flutter/fibrillation on amiodarone drip Necrosis of the distal toes Mechanically ventilated Thank you very much for the opportunity to participate in the care of this patient Time Spent With Patient Time: Total time spent is greater than 50% in coordination of care (as documented) at patient's floor/unit and/or counseling patient: PROCEDURES: Arterial Line Size (Gauge): 20
[2025-01-07] VITALS (10 sets, daily range): BP systolic 118–135; BP diastolic 60–79; PULSE 62–76; RESP 18–100; TEMP 36.1–36.7; O2SAT 91–100; BMI 61.3
[2025-01-07 06:33] LABS: Basophils # (Auto) 0.0 Thou/mm3 (0.0-0.2); Basophils % (Auto) 0 % (0-2.5); Eosinophils # (Auto) 0.1 Thou/mm3 (0.0-0.5); Eosinophils % (Auto) 1 % (0-10); Hematocrit 28.4 % (36.0-46.0); Hemoglobin 8.8 g/dL (12.0-16.0); Immature Granulocytes Auto 0.05 Thou/mm3 (0.00-0.00); Lymphocytes # (Auto) 0.8 Thou/mm3 (1.0-4.8); Lymphocytes % (Auto) 12 % (10-50); Mean Corpuscular HGB Conc 31.0 g/dl (31.0-37.0); Mean Corpuscular Hemoglobin 26.9 pg (25.0-35.0); Mean Corpuscular Volume 87 fL (80-100); Monocytes # (Auto) 0.5 Thou/mm3 (0.0-0.8); Monocytes % (Auto) 8 % (0-12); Neutrophils # (Auto) 5.2 Thou/mm3 (1.8-7.7); Neutrophils % (Auto) 78 % (37-80); Nucleated Red Blood Cell # 0.00 Thou/mm3 (0.00-0.00); Nucleated Red Blood Cell % 0 /100 WBC (0); Platelet Count 90 Thou/mm3 (140-440); RDW Standard Deviation 53.8 fL (36.4-46.3); Red Blood Count 3.27 Miln/mm3 (4.00-5.20); White Blood Count 6.6 Thou/mm3 (3.6-11.0)
[2025-01-07 06:45] LABS: Alanine Aminotransferase 31 U/L (10-49); Albumin, Serum 3.1 gm/dL (3.5-5.0); Albumin/Globulin Ratio 0.8 (1.2-2.2); Alkaline Phosphatase 161 U/L (46-116); Anion Gap 11 (7-16); Aspartate Amino Transferase 32 U/L (0-34); BUN/Creatinine Ratio 33 Ratio (12-20); Bilirubin,Total 0.7 mg/dL (0.3-1.2); Blood Urea Nitrogen 20 mg/dL (9-23); Calcium 9.2 mg/dL (8.3-10.6); Calcium (Corrected) 9.9 mg/dL (8.5-10.1); Carbon Dioxide 28.6 mMol/L (20.0-31.0); Chloride 101 mMol/L (98-107); Creatinine (Component) 0.6 mg/dL (0.6-1.3); Estimated Creatinine Clearance 147.4 mL/min (>60); Globulin 4.1 gm/dL (2.3-3.5); Glucose 97 mg/dL (74-106); Magnesium 1.8 mg/dL (1.6-2.6); Osmolality,Calculated 283 (275-295); Phosphorous 3.6 mg/dL (2.4-5.1); Potassium 3.8 mMol/L (3.4-5.1); Sodium 141 mMol/L (136-145); Total Protein 7.2 gm/dL (5.7-8.2); eGFR > 60 See Note
--- NOTE | 2025-01-07 08:49 | PC.SS ---
Addendum entered by Nani Glass 01/07/25 15:14: SS has sent inquiry to the SNF using [facility] Addendum entered by Nani Glass 01/07/25 09:39: Patient is requiring PT notes for SNF placement. Original Note: Follow up note: Advance diet as tolerated. Pt is d/c to SNF and will require insurance authorization.
[2025-01-07] MEDS: AMIODARONE HCL 200 MG TABLET PO ×2 (08:59→20:04)
[2025-01-07] MEDS: CLOTRIMAZOLE CR 1% 30 GM TUBE TOP ×2 (09:01→20:06)
--- NOTE | 2025-01-07 09:45 | PD.RESPRO ---
Documentation for date of: 01/07/25 Subjective Subjective Interval history: Patient seen and assessed at bedside. Reports chest pain, tender on palpation, likely secondary to severe coughing fits yesterday. Reports improvement in breathing, denies palpitations. Now tolerating oral diet, transition IV amiodarone to p.o. 200 mg twice daily. On telemetry, patient continues to be in sinus rhythm. BP 118/68, systolics usually 130s to 140s, decreased to 120 around midnight. However 60s to 70s. WBC, hemoglobin, platelets all decreased slightly. Patient is on IV heparin 7500. Potassium 3.8, magnesium 1.8, recommend repeating levels. BUN 20, creatinine 0.6. Exam Vital Signs Temp Pulse Resp BP Pulse Ox O2 Del Method O2 Flow Rate 97.7 F 72 25 H 135/68 H 97 Oxy Mask 2 01/07/25 08:00 01/07/25 08:59 01/07/25 08:00 01/07/25 08:59 01/07/25 08:00 01/07/25 08:00 01/07/25 04:00 FiO2 28 01/07/25 00:00 Narrative Exam Physical Exam General: Awake and in no acute distress. Able to answer questions appropriately. Morbidly obese female. Weak voice s/p extubation. HEENT: Normocephalic, atraumatic, mucous membranes moist. Dried blood on philtrum. Heart: Regular rate and rhythm, normal S1 and S2, no murmurs. Lungs: Congestion upper airways. Decreased breath sounds due to large body habitus. Abdomen: Soft, obese, nondistended, nontender, positive bowel sounds. No guarding or rebound tenderness. Neurologic: Alert and oriented x3, no gross neurological deficit, and patient able to move all 4 extremities. Extremities: Severe hyperkeratotic changes bilaterally. Majority of bullae have ruptured, wounds have been dressed. Cellulitis appears to be improving, withdrawing from marked borders. Objective Labs 01/07/25 05:09 01/07/25 05:09 Labs: Laboratory Results - last 24 hr 01/06/25 01/07/25 10:50 05:09 WBC 8.3 6.6 RBC 3.35 L 3.27 L Hgb 9.0 L 8.8 L Hct 29.2 L 28.4 L MCV 87 87 MCH 26.9 26.9 MCHC 30.8 L 31.0 RDW Std Deviation 53.5 H 53.8 H Plt Count 172 D 90 L D Neut % (Auto) 80 78 Lymph % (Auto) 9 L 12 [place] % (Auto) 10 8 Eos % (Auto) 0 1 Baso % (Auto) 0 0 Neut # (Auto) 6.7 5.2 Lymph # (Auto) 0.7 L 0.8 L [place] # (Auto) 0.8 0.5 Eos # (Auto) 0.0 0.1 Baso # (Auto) 0.0 0.0 Immature Gran # (Auto) 0.09 H 0.05 H Absolute Nucleated RBC 0.00 0.00 Immature Gran % 1 H 1 H Nucleated RBC % 0 0 Sodium 140 141 Potassium 3.7 3.8 Chloride 100 101 Carbon Dioxide 30.8 28.6 Anion Gap 9 11 BUN 28 H 20 Creatinine 0.5 L 0.6 Estim Creat Clear Calc 185.4 147.4 eGFR > 60 > 60 BUN/Creatinine Ratio 56 H 33 H Glucose 127 H 97 Calculated Osmolality 286 283 Calcium 9.2 9.2 Corrected Calcium 10.0 9.9 Phosphorus 3.4 3.6 Magnesium 1.7 1.8 Total Bilirubin 0.7 0.7 AST 34 32 ALT 31 31 Alkaline Phosphatase 168 H 161 H Total Protein 6.7 7.2 Albumin 3.0 L 3.1 L Globulin 3.7 H 4.1 H Albumin/Globulin Ratio 0.8 L 0.8 L ABG Interpretation ABG results: 12/22/24 12/22/24 12/23/24 16:49 23:40 13:05 ABG pH 7.39 7.29 L D ABG pCO2 33 37 ABG pO2 60 L 73 L ABG HCO3 20 18 L ABG O2 Saturation 92 94 ABG Base Excess -5 L -8 L VBG pH 7.35 VBG pCO2 37 VBG pO2 27 VBG Base Excess -5 L 12/24/24 12/24/24 12/24/24 08:54 17:12 17:19 ABG pH 7.25 L 7.16 L* ABG pCO2 34 36 ABG pO2 166 H D 127 H D ABG HCO3 15 L 13 L ABG O2 Saturation 100 H 99 H ABG Base Excess -11 L -15 L VBG pH 7.12 L VBG pCO2 42 VBG pO2 44 VBG Base Excess -15 L 12/24/24 12/24/24 12/25/24 19:45 22:40 04:47 ABG pH 7.10 L* 7.21 L D 7.36 D ABG pCO2 50 H D 38 D 37 ABG pO2 249 H D 249 H 191 H D ABG HCO3 15 L 15 L 21 ABG O2 Saturation 100 H 100 H 100 H ABG Base Excess -14 L -12 L -4 L VBG pH VBG pCO2 VBG pO2 VBG Base Excess 12/25/24 12/25/24 12/26/24 15:59 19:55 04:10 ABG pH 7.41 7.41 7.36 ABG pCO2 37 39 37 ABG pO2 128 H D 123 H 99 D ABG HCO3 23 24 21 ABG O2 Saturation 100 H 99 H 98 ABG Base Excess -1 0 -4 L VBG pH VBG pCO2 VBG pO2 VBG Base Excess 12/27/24 12/27/24 12/28/24 04:08 09:45 04:14 ABG pH 7.47 H D 7.42 7.39 ABG pCO2 36 41 45 ABG pO2 82 L 97 114 H ABG HCO3 26 27 H 27 H ABG O2 Saturation 98 99 H 99 H ABG Base Excess 2 2 2 VBG pH VBG pCO2 VBG pO2 VBG Base Excess 12/29/24 12/30/24 12/31/24 04:30 04:50 04:20 ABG pH 7.38 7.37 7.39 ABG pCO2 46 47 45 ABG pO2 109 H 121 H 83 D ABG HCO3 27 H 27 H 27 H ABG O2 Saturation 99 H 99 H 97 ABG Base Excess 1 1 2 VBG pH VBG pCO2 VBG pO2 VBG Base Excess 01/01/25 01/02/25 01/03/25 04:38 04:13 04:52 ABG pH 7.41 7.43 7.47 H ABG pCO2 47 45 43 ABG pO2 100 92 131 H D ABG HCO3 30 H 29 H 31 H ABG O2 Saturation 99 H 99 H 100 H ABG Base Excess 5 H 4 H 7 H VBG pH VBG pCO2 VBG pO2 VBG Base Excess 01/04/25 09:00 ABG pH 7.48 H ABG pCO2 45 ABG pO2 74 L D ABG HCO3 33 H ABG O2 Saturation 94 ABG Base Excess 8 H VBG pH VBG pCO2 VBG pO2 VBG Base Excess Quality Measures Quality Measures VTE prophylaxis Assessment & Plan Assessment Current Active Medications: Generic Name Dose Route Start Last Admin Trade Name Freq PRN Reason Stop Dose Admin Albuterol/Ipratropium 3 ml 12/23/24 09:36 Albuterol/Ipratropium (Duoneb) Rt Ginny 3 Ml Nebu INH 01/22/25 07:44 Q8HRRT PRN wheezing Amiodarone HCl 200 mg 01/07/25 09:00 01/07/25 08:59 Amiodarone Hcl 200 Mg Tablet PO 02/06/25 08:59 200 mg BID TRACY Administration Clotrimazole 0 gm 12/23/24 09:00 01/07/25 09:01 Clotrimazole Cr 1% 30 Gm Tube TOP 01/22/25 08:59 1 applicatio BID TRACY Administration Dextrose 25 ml 12/22/24 17:09 12/25/24 23:07 Dextrose 50%-Water Inj 50 Ml Syringe IV 01/21/25 17:08 25 ml Q15MIN PRN Administration BG 50-70 responsive npo pt Dextrose 50 ml 12/22/24 17:09 12/25/24 14:03 Dextrose 50%-Water Inj 50 Ml Syringe IV 01/21/25 17:08 50 ml Q15MIN PRN Administration BG <50 OR BG <70 & pt unresponsive Glucagon 1 mg 12/22/24 17:09 Glucagon Inj 1 Mg Vial IM Q15MIN PRN BG <70, and no IV access Hydromorphone HCl 1 mg 01/04/25 18:44 Hydromorphone Inj 2 Mg/Ml Vial IVP 01/09/25 18:43 Q4HR PRN Pain (1-6) Insulin Degludec 25 unit 01/03/25 09:00 01/04/25 08:26 Insulin Degludec 5 Unit/0.05 Ml (Per 5 Units) SC 02/02/25 08:59 Not Given On Hold: 01/04/25 08:42 QDAY TRACY Insulin Human Lispro 0 unit 01/01/25 18:00 01/07/25 05:10 Insulin Lispro (Admelog) 1 Unit/0.01 Ml Unit SC 01/31/25 17:59 Not Given Q6HR [facility] Protocol Neomycin/Polymyxin/Bacitracin 0 gm 01/04/25 22:00 01/07/25 05:20 Mehul/Poly/Ethan (Neosporin) Oint 15 Gm Tube TOP 01/11/25 21:59 1 applicatio TID TRACY Administration Ondansetron HCl 4 mg 12/22/24 17:09 Ondansetron Inj 2 Mg/Ml Inj 2 Ml IVP 01/21/25 17:08 Q6H PRN NAUSEA OR VOMITING Protocol Plan Patient is a 54-year-old female with past medical history of IDDM2, bilateral lower limb lymphedema, lipedema, asthma, epilepsy, morbid obesity, wheelchair-bound for 9 years, was brought to the ED on 12/22/24 for left lower extremity pain and clear cirrhosis fluid oozing. Patient was admitted to the ICU for distributive shock. Cardiology team was consulted because of new onset A-fib with RVR and newly diagnosed CHF. #Newly diagnosed HFrEF (40-45%, 11/2024) #New onset A-fib with RVR likely induced by shock state #Streptococcus pyogenes bacteremia 2/ LLE cellulitis Patient presented with sepsis secondary to left leg cellulitis, her condition worsened to distributive shock. During her stay she developed A-fib with RVR, with no known hx of afib, we started the patient on amiodarone drip. Even though her body habitus echo was done and showed ejection fraction of 40 to 45%. With normal RV function. BNP was 204 which most likely skewed by patient obesity. Troponin was negative. 12/22/24 Echo showed Over all poor images due to body habitus and technically difficult study. Normal left ventricular size and function.Stage I diastolic dysfunction. Estimated ejection fraction is 40-45%. Normal right ventricular size and function. RVSP 39 mm Hg with RAP 8. Mild pulmonary HTN Trace MR and Mild TR. TDS due to patient morbid and laying on supine view, couldn't move. (patient had open wounds under breast) 12/25/2024 patient was started on CRRT due to worsening lactic acidosis and kidney function, blood culture growing Streptococcus pyogenes. 12/27/2024, Amiodrine drip was stopped by the primary team as the patient converted to sinus rhythm. Patient was having tachycardia heart rate of 113 however it was regular sinus. 12/31/24, EKG showed atrial flutter with RVR with 2:1 AV block. Restarted on amiodarone drip 0.5 mg/min around 1PM however patient continues to be in afib w RVR. 01/01/25, continues to be in atrial flutter with RVR with 2: 1 AV block. QTc noted to be 556 on EKG however taking consideration the QRS is widened, QTc is actually likely around 480 calculated by [facility] formula (HR 135, QT interval 8 boxes). Her BUN is elevated at 42 as well as hemoglobin is dropping down over the last couple of days which is contributing to the RVR. Patient mostly has upper GI bleed mostly secondary to oozing of blood from the possible stress-induced gastritis. Recommended primary team to obtain stool guaiac has been GI consult. Discussed this with the critical care attending 01/02/25 -Still continues to be in flutter with variable block and heart rate is better controlled patient continues to be sedated and intubated. Recommend to continue amiodarone drip at 1 mg per minute until patient is able to take oral medications removed 2.7 L during dialysis yesterday. Hemoglobin is still lower at 6.9 today. Primary team planning to transfer the patient to 2 units of PRBC and GI team has been consulted this morning for further evaluation. 01/04/2025?patient rhythm controlled on amiodarone drip. Appears to be in sinus tachycardia on telemetry. Heart rate also improved significantly, now in low 90s to 110s. Likely improved secondary to blood transfusions. See anemia workup by GI below. Plan - Transition to p.o. amiodarone 200 mg twice daily as patient is able to tolerate oral intake. - Heparin 7500 units q8hr - Recommend starting metopropol tartrate 12.5mg q8hr if BP permits. Will continue to work towards GDMT management as tolerated. ? Due to patient condition no invasive cardiac procedure will be done at this time ? Strict in and out ? Keep potassium and magnesium above 4 and 2 respectively within normal range. This will also help decrease QTc. #Normocytic anemia #Concern for acute GI bleed from stress induced gastritis Hgb downtrending during admission, note drop from 9.7 on 12/29 to 7.1 on 12/30. S/p 1 unit pRBC on 01/01 for Hgb 7.4. Hgb dropped to 6.9. 01/02/2025: Status post 2 units PRBC. Endoscopy showed esophagitis and gastritis characterized by erythema. GI does not believe so there is a drop in hemoglobin hematocrit was due to upper GI bleed. Colonoscopy 01/04/25: Showed internal hemorrhoids, entire colon is normal. Iron panel 01/05/2025: Iron, TIBC, iron saturation, unsaturated iron binding all low. - Hgb now stable, likely due to resolution of shock, however continues to be anemic. -Will defer anemia management to primary team. ? Continue to monitor hemoglobin #Distributive shock most likely secondary to sepsis, resolved #Sepsis secondary to left leg cellulitis #Toxic shock syndrome #Lower extremity lymphedema S/p IgG immunoglobulin Plan ? Primary team switched from clindamycin and meropenem, completed 10-day course with 2 days of IV CFX. ? Stable off norepinephrine drip and vasopressin for distributive shock, only on PRN. ?Off sedation and extubated #History of seizure disorder Patient on antiseizure meds #History of COPD Supplemental oxygen, BiPAP as needed, DuoNebs #Elevated bilirubin, elevated AST, hypoalbuminemia Secondary to toxic shock syndrome versus septic shock Follow primary team recommendations #Lactic acidosis improving s/p CRRT #YOU #Non-anion gap metabolic acidosis Thank you for your consultation, please do not hesitate to reach out if you have any question or concern Patient plan of care was discussed with the attending physician, Dr. Chapa. Obdulia Evans, PGY-1 Attending Provider Attestation/Addendum I have personally seen and examined the patient separately on the above date of service and discussed the plan of care with the resident. I reviewed the resident Dr. Obdulia Evans consultation progress note and agree with the resident findings and plan in the note above and have also edited the documentation to reflect my findings and plan. Alex Chapa M.D. Interventional Cardiology
[2025-01-07] MEDS: POLYETHYLENE GLYCOL 17 GM PACKET PO (10:37)
[2025-01-07] MEDS: POTASSIUM CHL 10 mEq IVPB 10 MEQ/100 ML BAG 100 MEQ IV ×3 (10:42→15:34)
[2025-01-07] MEDS: Magnesium Sulfate 4 GM Ivpb 4 GM/50 ML BAG IV (10:42)
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
--- NOTE | 2025-01-07 15:17 | PC.SS ---
SS has sent fax to [facility]. SS has spoken to Jeni from PT who is recommending LTAC placement.
--- NOTE | 2025-01-07 15:59 | ESPR_ITS ---
<Statement entered by Tima Gutierrez MD - 01/07/25 16:45> Patient seen and assessed in hospital bed denies having any concerning symptoms at this time. Patient's swallowing capacity is gradually are improving and she is able to tolerate dysphagia 3 diet at this time. Wound care nurse notes that patient's left lower extremity, posterior site has new sloughing. We will contact surgery if any new interventions such as debridement are necessary. Patient also desaturates to 60-70% when attempting to move to prone position; will keep patient supine and limited movement at this time. PT continue to work with the patient with SNF placement pending. I have personally seen and examined the patient. I agree with the resident's assessment and plan as documented below. Tima Gutierrez, DO PGY-2 Internal Medicine - GME Documentation for date of: 01/07/25 Subjective Subjective Interval history: Patient pending SNF discharge. Transitioned from amiodarone drip to amiodarone 200 mg p.o. twice daily. Patient currently not on anticoagulation medication due to concern for GI bleed. EGD and colonoscopy showed Will follow-up with GI whether we can resume patient on anticoagulation. Per Woundcare, patient has extensive dark necrotic skin sloughing in left lower extremity as well as necrotic finger tips. Will follow up with surgery with possible debridement. Patient's speech has remarkably improved, was able to talk in short sentences however still without distress and agitated. Will continue to monitor. Exam Vital Signs Temp Pulse Resp BP Pulse Ox O2 Del Method O2 Flow Rate 97.1 F 67 19 126/72 100 Nasal Cannula 2 01/07/25 12:00 01/07/25 14:18 01/07/25 14:18 01/07/25 12:00 01/07/25 14:18 01/07/25 12:00 01/07/25 04:00 FiO2 28 01/07/25 00:00 Narrative Exam General: Alert, Morbidly obese, Drowsy Eye: EOMI, normal conjunctiva, no scleral icterus HENT: Normocephalic, dry oral mucosa, necrotic tissue on philtrum, multiple nectoric spots on lips. Neck: Supple, non-tender, no JVD, no lymphadenopathy Lungs: Labored respirations, symmetric chest rise, Clear to auscultate bilaterally, No wheezing, rhonchi, crackles Heart: Peripheral pulses intact bilaterally, Regular Rate and Rhythm. Abdomen: Soft, non-tender, non-distended, no palpable masses Musculoskeletal: Bilateral lower extremity erythema extending to thighs reaching towards the hip and torso with yellow crusts on top. Necrotic bilateral toes, right fingers, left middle fingers. Discolored lesion around right buttock. Cold distal extremity, Mild oozing of yellow fluid. Skin: Cold distal extremity. Refer to [facility]K. Psychiatric: Cooperative, Awake and alert, Able to communicate through headshakes and eye movement Neuro: Cranial nerves II-XII grossly intact. Strength 1/5 throughout. Limited sensations in distal extremities. Objective Labs 01/11/25 05:07 01/11/25 05:07 Labs: Laboratory Results - last 24 hr 01/07/25 05:09 WBC 6.6 RBC 3.27 L Hgb 8.8 L Hct 28.4 L MCV 87 MCH 26.9 MCHC 31.0 RDW Std Deviation 53.8 H Plt Count 90 L D Neut % (Auto) 78 Lymph % (Auto) 12 [place] % (Auto) 8 Eos % (Auto) 1 Baso % (Auto) 0 Neut # (Auto) 5.2 Lymph # (Auto) 0.8 L [place] # (Auto) 0.5 Eos # (Auto) 0.1 Baso # (Auto) 0.0 Immature Gran # (Auto) 0.05 H Absolute Nucleated RBC 0.00 Immature Gran % 1 H Nucleated RBC % 0 Sodium 141 Potassium 3.8 Chloride 101 Carbon Dioxide 28.6 Anion Gap 11 BUN 20 Creatinine 0.6 Estim Creat Clear Calc 147.4 eGFR > 60 BUN/Creatinine Ratio 33 H Glucose 97 Calculated Osmolality 283 Calcium 9.2 Corrected Calcium 9.9 Phosphorus 3.6 Magnesium 1.8 Total Bilirubin 0.7 AST 32 ALT 31 Alkaline Phosphatase 161 H Total Protein 7.2 Albumin 3.1 L Globulin 4.1 H Albumin/Globulin Ratio 0.8 L ABG Interpretation ABG results: 12/22/24 12/22/24 12/23/24 16:49 23:40 13:05 ABG pH 7.39 7.29 L D ABG pCO2 33 37 ABG pO2 60 L 73 L ABG HCO3 20 18 L ABG O2 Saturation 92 94 ABG Base Excess -5 L -8 L VBG pH 7.35 VBG pCO2 37 VBG pO2 27 VBG Base Excess -5 L 12/24/24 12/24/24 12/24/24 08:54 17:12 17:19 ABG pH 7.25 L 7.16 L* ABG pCO2 34 36 ABG pO2 166 H D 127 H D ABG HCO3 15 L 13 L ABG O2 Saturation 100 H 99 H ABG Base Excess -11 L -15 L VBG pH 7.12 L VBG pCO2 42 VBG pO2 44 VBG Base Excess -15 L 12/24/24 12/24/24 12/25/24 19:45 22:40 04:47 ABG pH 7.10 L* 7.21 L D 7.36 D ABG pCO2 50 H D 38 D 37 ABG pO2 249 H D 249 H 191 H D ABG HCO3 15 L 15 L 21 ABG O2 Saturation 100 H 100 H 100 H ABG Base Excess -14 L -12 L -4 L VBG pH VBG pCO2 VBG pO2 VBG Base Excess 12/25/24 12/25/24 12/26/24 15:59 19:55 04:10 ABG pH 7.41 7.41 7.36 ABG pCO2 37 39 37 ABG pO2 128 H D 123 H 99 D ABG HCO3 23 24 21 ABG O2 Saturation 100 H 99 H 98 ABG Base Excess -1 0 -4 L VBG pH VBG pCO2 VBG pO2 VBG Base Excess 12/27/24 12/27/24 12/28/24 04:08 09:45 04:14 ABG pH 7.47 H D 7.42 7.39 ABG pCO2 36 41 45 ABG pO2 82 L 97 114 H ABG HCO3 26 27 H 27 H ABG O2 Saturation 98 99 H 99 H ABG Base Excess 2 2 2 VBG pH VBG pCO2 VBG pO2 VBG Base Excess 12/29/24 12/30/24 12/31/24 04:30 04:50 04:20 ABG pH 7.38 7.37 7.39 ABG pCO2 46 47 45 ABG pO2 109 H 121 H 83 D ABG HCO3 27 H 27 H 27 H ABG O2 Saturation 99 H 99 H 97 ABG Base Excess 1 1 2 VBG pH VBG pCO2 VBG pO2 VBG Base Excess 01/01/25 01/02/25 01/03/25 04:38 04:13 04:52 ABG pH 7.41 7.43 7.47 H ABG pCO2 47 45 43 ABG pO2 100 92 131 H D ABG HCO3 30 H 29 H 31 H ABG O2 Saturation 99 H 99 H 100 H ABG Base Excess 5 H 4 H 7 H VBG pH VBG pCO2 VBG pO2 VBG Base Excess 01/04/25 09:00 ABG pH 7.48 H ABG pCO2 45 ABG pO2 74 L D ABG HCO3 33 H ABG O2 Saturation 94 ABG Base Excess 8 H VBG pH VBG pCO2 VBG pO2 VBG Base Excess Quality Measures Quality Measures VTE prophylaxis Assessment & Plan Assessment Current Active Medications: Generic Name Dose Route Start Last Admin Trade Name Freq PRN Reason Stop Dose Admin Albuterol/Ipratropium 3 ml 12/23/24 09:36 Albuterol/Ipratropium (Duoneb) Rt Ginny 3 Ml Nebu INH 01/22/25 07:44 Q8HRRT PRN wheezing Amiodarone HCl 200 mg 01/07/25 09:00 01/07/25 08:59 Amiodarone Hcl 200 Mg Tablet PO 02/06/25 08:59 200 mg BID TRACY Administration Ascorbic Acid 500 mg 01/07/25 21:00 Ascorbic Acid 250 Mg Tablet PO 02/06/25 20:59 BID TRACY Clotrimazole 0 gm 12/23/24 09:00 01/07/25 09:01 Clotrimazole Cr 1% 30 Gm Tube TOP 01/22/25 08:59 1 applicatio BID TRACY Administration Dextrose 25 ml 12/22/24 17:09 12/25/24 23:07 Dextrose 50%-Water Inj 50 Ml Syringe IV 01/21/25 17:08 25 ml Q15MIN PRN Administration BG 50-70 responsive npo pt Dextrose 50 ml 12/22/24 17:09 12/25/24 14:03 Dextrose 50%-Water Inj 50 Ml Syringe IV 01/21/25 17:08 50 ml Q15MIN PRN Administration BG <50 OR BG <70 & pt unresponsive Glucagon 1 mg 12/22/24 17:09 Glucagon Inj 1 Mg Vial IM Q15MIN PRN BG <70, and no IV access Hydromorphone HCl 1 mg 01/04/25 18:44 Hydromorphone Inj 2 Mg/Ml Vial IVP 01/09/25 18:43 Q4HR PRN Pain (1-6) Insulin Degludec 25 unit 01/03/25 09:00 01/04/25 08:26 Insulin Degludec 5 Unit/0.05 Ml (Per 5 Units) SC 02/02/25 08:59 Not Given On Hold: 01/04/25 08:42 QDAY TRACY Insulin Human Lispro 0 unit 01/01/25 18:00 01/07/25 12:01 Insulin Lispro (Admelog) 1 Unit/0.01 Ml Unit SC 01/31/25 17:59 Not Given Q6HR [facility] Protocol Multivitamins 1 tab 01/08/25 09:00 Multivitamins Tablet PO 02/07/25 08:59 QDAY TRACY Neomycin/Polymyxin/Bacitracin 0 gm 01/04/25 22:00 01/07/25 15:35 Mehul/Poly/Ethan (Neosporin) Oint 15 Gm Tube TOP 01/11/25 21:59 1 applicatio TID [facility] Administration Ondansetron HCl 4 mg 12/22/24 17:09 Ondansetron Inj 2 Mg/Ml Inj 2 Ml IVP 01/21/25 17:08 Q6H PRN NAUSEA OR VOMITING Protocol Polyethylene Glycol 17 gm 01/07/25 10:00 01/07/25 10:37 Polyethylene Glycol 17 Gm Packet PO 02/06/25 09:59 17 gm QDAY TRACY Administration Sennosides 1 tab 01/07/25 10:00 01/07/25 10:37 Senna Tablet PO 02/06/25 09:59 1 tab QDAY [facility] Administration Protocol Sodium Hypochlorite 473 ml 01/07/25 21:00 Sod Hypochlorite 1/4 Str 473 Ml Btl IRRIG 02/06/25 20:59 BID TRACY Zinc Sulfate 220 mg 01/08/25 09:00 Zinc Sulfate 220 Mg Capsule PO 02/21/25 08:59 QDAY [facility] Plan 54-year-old female with past medical history of prior [place]?, Insulin-dependent type 2 diabetes, lymphedema, lipedema, asthma, epilepsy, morbid obesity, nonambulatory for 9 years, wheelchair-bound presenting to the ED on 12/22 with left lower extremity pain and oozing. Admitted to ICU for management of cellulitis and shock. Patient has been stabilized and has been downgraded to tele on 01/05 #Cellulitis 2/2 Streptococcus pyogenes bacteremia ? Resolving #Distributive Shock-Resolving #Lactic acidosis-Resolving #2/2 Toxic Shock Syndrome #Leukocytosis - Resolved #Coagulopathy 2/2 toxic shock syndrome - Resolved -On admission, lactic acid: 7.6, peaked to 10.0 (at 12/26), now down trending to 2.5 -On admission, WBC: 5.8, peaked to 52.9 (at 12/31), now down trending to 7.6 -Blood Cx (12/22/2024): Youssef-sensitive Streptococcus pyogenes (Group A Streptococcus) x2/2 -Likely main etiology of sepsis with toxic shock syndrome. -Timeline of antibiotic regimen given in ICU detailed below: 1. IV vancomycin dosed by pharmacy [12/22-12/25, discontinued due to MRSA(-)] 2. IV clindamycin 600 mg q8HR [12/22-12/30, dc'd due to concern for Drug induced Thrombocytopenia and no longer needed for TSS] 3. IV cefepime 2 gm q12HR [12/22-12/24, discontinued after TSS became favored diagnosis] 4. IV meropenem 1000 mg q8HR [12/24-12/30, dc'd due to possible Drug induced Thrombocytopenia] 5. IV Ceftriaxone 2 g qday [12/30 - 01/01 for total ABX course of 10 days] -Blood Cx (12/28): Coag Negative Staph Plan: -Continue Would care management -Bilateral Above Knee Amputation (AKA) has been discussed, but currently undecided. #Atrial fibrillation w/ RVR #Acute systolic and diastolic dysfunction w/ mildly reduced EF [40-45%] -12/22 echocardiogram showed reduced EF of 45% -Episodes of A fib w/ RVR during ICU. CHADS-VASc score 3 (female, CHF, hypertension) Plan: -Patient on Amiodarone PO -Awaiting GI recs prior to starting anticoagulation #YOU 2/2 Distributive Shock #ATN -On admission, BUN:14, Cr: 1.8 (baseline 0.7), eGFR:33 -Likely combination of pre-renal and intrinsic cause of YOU due to distributive shock and infection. -Hemodialysis sessions: 12/24, 12/26, 12/27, 12/29, 12/31, 01/01 -Urine Output: 1.3L Plan: -Given stability, hemodialysis unlikely -Strict I's & O's -Avoid nephrotoxins -Renally dose medications #GI bleed R/O #Anemia, Microcytic -Patient has Chronic Anemia with trending down hemoglobin. -Throughout stay in ICU, risk of stress ulcers with thrombocytopenia, coagulopathy, intubation, critical illness. -Received total 3 Blood transfusions -EGD 01/02 showed gastritis and no bleeding -Colonoscopy 01/04 showed internal hemorrhoids with normal colon -Current Hgb: 9.0 Plan: -Continue to monitor Hgb and sign of bleeding #Necrotic distal digits -Necrosis of distal right fingers, distal left middle finger, and distal right toes. -Likely due to prolonged usage of high dose pressors during events of shock. -Bilateral upper extremity duplex US (01/03) showed no occlusive arterial disease. Plan: -Per general surgery, continue to monitor. #Acute respiratory failure with Hypoxia -Resolved #2/2 Severe Metabolic acidosis - Resolved -Patient discontinued intubation on 01/04 #Thrombocytopenia- Resolved #Hyperglycemia- Resolved #Constipation- Resolved Disposition: Tele Diet: Consistent Carbohydrate GI prophylaxis: IV protonix DVT prophylaxis: Currently none d/t concern for GI bleed. Code: DNR Assessment and plan discussed with my attending physician Dr. Juancarlos Avelar (PGY-1) - Internal medicine resident Attending Provider Attestation/Addendum I have examined the patient, reviewed labs and imaging findings, discussed the case with the resident(s), and reviewed entered orders. I agree with the plan of care as outlined in this note. Dr. Juancarlos MD
--- NOTE | 2025-01-07 16:32 | PC.SS ---
SS received call from Omar at [facility] who states they will accept pt.
--- NOTE | 2025-01-07 18:25 | ESPR_ITS ---
Documentation for date of: 01/07/25 Subjective Subjective Interval history: Patient evaluated Hemoglobin hematocrit 8.5 and 28.4 Exam Vital Signs Temp Pulse Resp BP Pulse Ox O2 Del Method O2 Flow Rate 97.1 F 72 19 126/72 100 Nasal Cannula 2 01/07/25 12:00 01/07/25 16:00 01/07/25 14:18 01/07/25 12:00 01/07/25 14:18 01/07/25 12:00 01/07/25 04:00 FiO2 28 01/07/25 00:00 Objective Labs 01/07/25 05:09 01/07/25 05:09 Labs: Laboratory Results - last 24 hr 01/07/25 05:09 WBC 6.6 RBC 3.27 L Hgb 8.8 L Hct 28.4 L MCV 87 MCH 26.9 MCHC 31.0 RDW Std Deviation 53.8 H Plt Count 90 L D Neut % (Auto) 78 Lymph % (Auto) 12 [place] % (Auto) 8 Eos % (Auto) 1 Baso % (Auto) 0 Neut # (Auto) 5.2 Lymph # (Auto) 0.[address] [place] # (Auto) 0.5 Eos # (Auto) 0.1 Baso # (Auto) 0.0 Immature Gran # (Auto) 0.05 H Absolute Nucleated RBC 0.00 Immature Gran % 1 H Nucleated RBC % 0 Sodium 141 Potassium 3.8 Chloride 101 Carbon Dioxide 28.6 Anion Gap 11 BUN 20 Creatinine 0.6 Estim Creat Clear Calc 147.4 eGFR > 60 BUN/Creatinine Ratio 33 H Glucose 97 Calculated Osmolality 283 Calcium 9.2 Corrected Calcium 9.9 Phosphorus 3.6 Magnesium 1.8 Total Bilirubin 0.7 AST 32 ALT 31 Alkaline Phosphatase 161 H Total Protein 7.2 Albumin 3.1 L Globulin 4.1 H Albumin/Globulin Ratio 0.8 L Impressions Impression: Gastritis Esophagitis Internal hemorrhoids Continue current management ABG Interpretation ABG results: 12/22/24 12/22/24 12/23/24 16:49 23:40 13:05 ABG pH 7.39 7.29 L D ABG pCO2 33 37 ABG pO2 60 L 73 L ABG HCO3 20 18 L ABG O2 Saturation 92 94 ABG Base Excess -5 L -8 L VBG pH 7.35 VBG pCO2 37 VBG pO2 27 VBG Base Excess -5 L 12/24/24 12/24/24 12/24/24 08:54 17:12 17:19 ABG pH 7.25 L 7.16 L* ABG pCO2 34 36 ABG pO2 166 H D 127 H D ABG HCO3 15 L 13 L ABG O2 Saturation 100 H 99 H ABG Base Excess -11 L -15 L VBG pH 7.12 L VBG pCO2 42 VBG pO2 44 VBG Base Excess -15 L 12/24/24 12/24/24 12/25/24 19:45 22:40 04:47 ABG pH 7.10 L* 7.21 L D 7.36 D ABG pCO2 50 H D 38 D 37 ABG pO2 249 H D 249 H 191 H D ABG HCO3 15 L 15 L 21 ABG O2 Saturation 100 H 100 H 100 H ABG Base Excess -14 L -12 L -4 L VBG pH VBG pCO2 VBG pO2 VBG Base Excess 12/25/24 12/25/24 12/26/24 15:59 19:55 04:10 ABG pH 7.41 7.41 7.36 ABG pCO2 37 39 37 ABG pO2 128 H D 123 H 99 D ABG HCO3 23 24 21 ABG O2 Saturation 100 H 99 H 98 ABG Base Excess -1 0 -4 L VBG pH VBG pCO2 VBG pO2 VBG Base Excess 12/27/24 12/27/24 12/28/24 04:08 09:45 04:14 ABG pH 7.47 H D 7.42 7.39 ABG pCO2 36 41 45 ABG pO2 82 L 97 114 H ABG HCO3 26 27 H 27 H ABG O2 Saturation 98 99 H 99 H ABG Base Excess 2 2 2 VBG pH VBG pCO2 VBG pO2 VBG Base Excess 12/29/24 12/30/24 12/31/24 04:30 04:50 04:20 ABG pH 7.38 7.37 7.39 ABG pCO2 46 47 45 ABG pO2 109 H 121 H 83 D ABG HCO3 27 H 27 H 27 H ABG O2 Saturation 99 H 99 H 97 ABG Base Excess 1 1 2 VBG pH VBG pCO2 VBG pO2 VBG Base Excess 01/01/25 01/02/25 01/03/25 04:38 04:13 04:52 ABG pH 7.41 7.43 7.47 H ABG pCO2 47 45 43 ABG pO2 100 92 131 H D ABG HCO3 30 H 29 H 31 H ABG O2 Saturation 99 H 99 H 100 H ABG Base Excess 5 H 4 H 7 H VBG pH VBG pCO2 VBG pO2 VBG Base Excess 01/04/25 09:00 ABG pH 7.48 H ABG pCO2 45 ABG pO2 74 L D ABG HCO3 33 H ABG O2 Saturation 94 ABG Base Excess 8 H VBG pH VBG pCO2 VBG pO2 VBG Base Excess Assessment & Plan A&P Narrative # Drop in hemoglobin hematocrit etiology uncertain possible occult GI bleeding Consent will be obtained for possible fiberoptic esophagogastroduodenoscopy with possible biopsy therapeutic intervention under intravenous moderate sedation if negative will consider a fiberoptic colonoscopy After GoLytely prep # Other medical problems include metabolic encephalopathy Diabetes mellitus type 2 Atrial flutter/fibrillation on amiodarone drip Necrosis of the distal toes Mechanically ventilated Thank you very much for the opportunity to participate in the care of this patient Time Spent With Patient Time: Total time spent is greater than 50% in coordination of care (as documented) at patient's floor/unit and/or counseling patient: PROCEDURES: Arterial Line Size (Gauge): 20
[2025-01-07] MEDS: ASCORBIC ACID 250 MG TABLET 500 MG PO (20:05)
[2025-01-07] MEDS: SOD HYPOCHLORITE 1/4 STR 473 ML BTL IRRIG (21:27)
[2025-01-07] MEDS: HYDROmorphone INJ 2 MG/ML VIAL 1 MG IVP (21:37)
[2025-01-08] VITALS (10 sets, daily range): BP systolic 127–148; BP diastolic 74–92; PULSE 18–80; RESP 17–23; TEMP 35.9–36.2; O2SAT 96–100
[2025-01-08 07:43] LABS: Alanine Aminotransferase 38 U/L (10-49); Albumin, Serum 3.0 gm/dL (3.5-5.0); Albumin/Globulin Ratio 0.8 (1.2-2.2); Alkaline Phosphatase 179 U/L (46-116); Anion Gap 11 (7-16); Aspartate Amino Transferase 35 U/L (0-34); BUN/Creatinine Ratio 40 Ratio (12-20); Bilirubin,Total 0.9 mg/dL (0.3-1.2); Blood Urea Nitrogen 24 mg/dL (9-23); Calcium 8.7 mg/dL (8.3-10.6); Calcium (Corrected) 9.5 mg/dL (8.5-10.1); Carbon Dioxide 29.1 mMol/L (20.0-31.0); Chloride 103 mMol/L (98-107); Creatinine (Component) 0.6 mg/dL (0.6-1.3); Estimated Creatinine Clearance 147.4 mL/min (>60); Globulin 3.7 gm/dL (2.3-3.5); Glucose 109 mg/dL (74-106); Magnesium 2.0 mg/dL (1.6-2.6); Osmolality,Calculated 289 (275-295); Phosphorous 3.9 mg/dL (2.4-5.1); Potassium 4.2 mMol/L (3.4-5.1); Sodium 143 mMol/L (136-145); Total Protein 6.7 gm/dL (5.7-8.2); eGFR > 60 See Note
[2025-01-08] MEDS: POLYETHYLENE GLYCOL 17 GM PACKET PO (09:37)
[2025-01-08] MEDS: CLOTRIMAZOLE CR 1% 30 GM TUBE TOP ×2 (09:37→20:43)
[2025-01-08] MEDS: AMIODARONE HCL 200 MG TABLET PO ×2 (09:37→20:41)
[2025-01-08] MEDS: MULTIVITAMINS TABLET 1 TAB PO (09:37)
[2025-01-08] MEDS: ASCORBIC ACID 250 MG TABLET 500 MG PO ×2 (09:38→20:41)
[2025-01-08] MEDS: SOD HYPOCHLORITE 1/4 STR 473 ML BTL IRRIG ×2 (09:40→20:43)
[2025-01-08] MEDS: ZINC SULFATE 220 MG CAPSULE PO (09:41)
--- NOTE | 2025-01-08 09:56 | PC.SS ---
Addendum entered by EDILSON Khan 01/08/25 15:53: rounding note: pending insurance authorization for [facility]. Addendum entered by EDILSON Khan 01/08/25 13:28: RN NICU spoke to [place] at [facility] who stated that patient will need authorization and it will not happen over the weekend, [place] stated that PASSR is not needed, authorization will be submitted on Friday by [place]ino at [facility]. Addendum entered by EDILSON Khan 01/08/25 12:06: RN NICU placed phone call to [place] at [facility] to verify if insurance authorization has been submitted, [place] was not available, RN NICU left requesting call back. Addendum entered by EDILSON Khan 01/08/25 10:11: RN NICU spoke to patients daughter who is agreeable to LTAC. Original Note: RN NICU called [place] at [facility] to verify if insurance authorization has been submitted, [place] was not available, RN NICU left requesting call back.
--- NOTE | 2025-01-08 10:10 | ESPR_ITS ---
<Statement entered by Kyaw Subramanian MD - 01/09/25 12:43> I have discussed and was present for the essential components of the history, physical examination, diagnosis, and treatment plan with the resident. I agree with the patient's care as documented by the resident and amended herein by me. Kyaw Subramanian MD FACP. Documentation for date of: 01/08/25 Subjective Subjective Interval history: Patient seen and examined. No acute overnight events. tolerated diet well. Labs and vitals were reviewed and stable. Patient is pending LTAC disposition. Patient is agreeable with plan. Pending insurance authorization which most likely will happen on Friday. Exam Vital Signs Temp Pulse Resp BP Pulse Ox O2 Del Method O2 Flow Rate 96.6 F L 70 18 138/89 H 98 Nasal Cannula 2 01/08/25 08:00 01/08/25 09:37 01/08/25 08:34 01/08/25 09:37 01/08/25 08:34 01/08/25 08:00 01/08/25 08:34 FiO2 71 01/08/25 08:34 Narrative Exam General: Morbidly obese female, awake, answers briefly, fatigued but cooperative. HEENT: Post-extubation- voice improved; oral mucosa moist. Neck: Supple, no JVD. Lungs: Breath sounds present bilaterally, no wheezes/crackles. Heart: Tachycardic, regular rhythm, no murmurs. Abdomen: Soft, obese, non-tender, bowel sounds present. Extremities: Severe chronic lymphedema; black dry gangrenous tips of fingers/toes unchanged; LE wounds covered, no new drainage noted. Skin: Stasis changes; no new rash. Neuro: Awake, follows simple commands, speech improved. Objective Labs 01/08/25 10:41 01/08/25 06:43 Labs: Laboratory Results - last 24 hr 01/08/25 06:43 Sodium 143 Potassium 4.2 Chloride 103 Carbon Dioxide 29.1 Anion Gap 11 BUN 24 H Creatinine 0.6 Estim Creat Clear Calc 147.4 eGFR > 60 BUN/Creatinine Ratio 40 H Glucose 109 H Calculated Osmolality 289 Calcium 8.7 Corrected Calcium 9.5 Phosphorus 3.9 Magnesium 2.0 Total Bilirubin 0.9 AST 35 H ALT 38 Alkaline Phosphatase 179 H Total Protein 6.7 Albumin 3.0 L Globulin 3.7 H Albumin/Globulin Ratio 0.8 L ABG Interpretation ABG results: 12/22/24 12/22/24 12/23/24 16:49 23:40 13:05 ABG pH 7.39 7.29 L D ABG pCO2 33 37 ABG pO2 60 L 73 L ABG HCO3 20 18 L ABG O2 Saturation 92 94 ABG Base Excess -5 L -8 L VBG pH 7.35 VBG pCO2 37 VBG pO2 27 VBG Base Excess -5 L 12/24/24 12/24/24 12/24/24 08:54 17:12 17:19 ABG pH 7.25 L 7.16 L* ABG pCO2 34 36 ABG pO2 166 H D 127 H D ABG HCO3 15 L 13 L ABG O2 Saturation 100 H 99 H ABG Base Excess -11 L -15 L VBG pH 7.12 L VBG pCO2 42 VBG pO2 44 VBG Base Excess -15 L 12/24/24 12/24/24 12/25/24 19:45 22:40 04:47 ABG pH 7.10 L* 7.21 L D 7.36 D ABG pCO2 50 H D 38 D 37 ABG pO2 249 H D 249 H 191 H D ABG HCO3 15 L 15 L 21 ABG O2 Saturation 100 H 100 H 100 H ABG Base Excess -14 L -12 L -4 L VBG pH VBG pCO2 VBG pO2 VBG Base Excess 12/25/24 12/25/24 12/26/24 15:59 19:55 04:10 ABG pH 7.41 7.41 7.36 ABG pCO2 37 39 37 ABG pO2 128 H D 123 H 99 D ABG HCO3 23 24 21 ABG O2 Saturation 100 H 99 H 98 ABG Base Excess -1 0 -4 L VBG pH VBG pCO2 VBG pO2 VBG Base Excess 12/27/24 12/27/24 12/28/24 04:08 09:45 04:14 ABG pH 7.47 H D 7.42 7.39 ABG pCO2 36 41 45 ABG pO2 82 L 97 114 H ABG HCO3 26 27 H 27 H ABG O2 Saturation 98 99 H 99 H ABG Base Excess 2 2 2 VBG pH VBG pCO2 VBG pO2 VBG Base Excess 12/29/24 12/30/24 12/31/24 04:30 04:50 04:20 ABG pH 7.38 7.37 7.39 ABG pCO2 46 47 45 ABG pO2 109 H 121 H 83 D ABG HCO3 27 H 27 H 27 H ABG O2 Saturation 99 H 99 H 97 ABG Base Excess 1 1 2 VBG pH VBG pCO2 VBG pO2 VBG Base Excess 01/01/25 01/02/25 01/03/25 04:38 04:13 04:52 ABG pH 7.41 7.43 7.47 H ABG pCO2 47 45 43 ABG pO2 100 92 131 H D ABG HCO3 30 H 29 H 31 H ABG O2 Saturation 99 H 99 H 100 H ABG Base Excess 5 H 4 H 7 H VBG pH VBG pCO2 VBG pO2 VBG Base Excess 01/04/25 09:00 ABG pH 7.48 H ABG pCO2 45 ABG pO2 74 L D ABG HCO3 33 H ABG O2 Saturation 94 ABG Base Excess 8 H VBG pH VBG pCO2 VBG pO2 VBG Base Excess Quality Measures Quality Measures VTE prophylaxis Assessment & Plan Assessment Current Active Medications: Generic Name Dose Route Start Last Admin Trade Name Freq PRN Reason Stop Dose Admin Albuterol/Ipratropium 3 ml 12/23/24 09:36 Albuterol/Ipratropium (Duoneb) Rt Ginny 3 Ml Nebu INH 01/22/25 07:44 Q8HRRT PRN wheezing Amiodarone HCl 200 mg 01/07/25 09:00 01/08/25 09:37 Amiodarone Hcl 200 Mg Tablet PO 02/06/25 08:59 200 mg BID TRACY Administration Ascorbic Acid 500 mg 01/07/25 21:00 01/08/25 09:38 Ascorbic Acid 250 Mg Tablet PO 02/06/25 20:59 500 mg BID TRACY Administration Clotrimazole 0 gm 12/23/24 09:00 01/08/25 09:37 Clotrimazole Cr 1% 30 Gm Tube TOP 01/22/25 08:59 1 applicatio BID TRACY Administration Dextrose 25 ml 12/22/24 17:09 12/25/24 23:07 Dextrose 50%-Water Inj 50 Ml Syringe IV 01/21/25 17:08 25 ml Q15MIN PRN Administration BG 50-70 responsive npo pt Dextrose 50 ml 12/22/24 17:09 12/25/24 14:03 Dextrose 50%-Water Inj 50 Ml Syringe IV 01/21/25 17:08 50 ml Q15MIN PRN Administration BG <50 OR BG <70 & pt unresponsive Glucagon 1 mg 12/22/24 17:09 Glucagon Inj 1 Mg Vial IM Q15MIN PRN BG <70, and no IV access Hydromorphone HCl 1 mg 01/04/25 18:44 01/07/25 21:37 Hydromorphone Inj 2 Mg/Ml Vial IVP 01/09/25 18:43 1 mg Q4HR PRN Administration Pain (1-6) Insulin Degludec 25 unit 01/03/25 09:00 01/04/25 08:26 Insulin Degludec 5 Unit/0.05 Ml (Per 5 Units) SC 02/02/25 08:59 Not Given On Hold: 01/04/25 08:42 QDAY TRACY Insulin Human Lispro 0 unit 01/07/25 21:00 01/08/25 07:30 Insulin Lispro (Admelog) 1 Unit/0.01 Ml Unit SC 02/06/25 20:59 Not Given ACHS [facility] Protocol Multivitamins 1 tab 01/08/25 09:00 01/08/25 09:37 Multivitamins Tablet PO 02/07/25 08:59 1 tab QDAY TRACY Administration Neomycin/Polymyxin/Bacitracin 0 gm 01/04/25 22:00 01/08/25 06:30 Mehul/Poly/Ethan (Neosporin) Oint 15 Gm Tube TOP 01/11/25 21:59 1 applicatio TID TRACY Administration Ondansetron HCl 4 mg 12/22/24 17:09 Ondansetron Inj 2 Mg/Ml Inj 2 Ml IVP 01/21/25 17:08 Q6H PRN NAUSEA OR VOMITING Protocol Polyethylene Glycol 17 gm 01/07/25 10:00 01/08/25 09:37 Polyethylene Glycol 17 Gm Packet PO 02/06/25 09:59 17 gm QDAY TRACY Administration Sennosides 1 tab 01/07/25 10:00 01/08/25 09:37 Senna Tablet PO 02/06/25 09:59 1 tab QDAY TRACY Administration Protocol Sodium Hypochlorite 473 ml 01/07/25 21:00 01/08/25 09:40 Sod Hypochlorite 1/4 Str 473 Ml Btl IRRIG 02/06/25 20:59 1 appln BID TRACY Administration Zinc Sulfate 220 mg 01/08/25 09:00 01/08/25 09:41 Zinc Sulfate 220 Mg Capsule PO 02/21/25 08:59 220 mg QDAY TRACY Administration Plan 54-year-old female with past medical history of prior NH?, Insulin-dependent type 2 diabetes, lymphedema, lipedema, asthma, epilepsy, morbid obesity, nonambulatory for 9 years, wheelchair-bound presenting to the ED on 12/22 with left lower extremity pain and oozing. Admitted to ICU for management of cellulitis and shock. Patient has been stabilized and has been downgraded to tele on 01/05 #Cellulitis 2/2 Streptococcus pyogenes bacteremia ? Resolving #Distributive Shock-Resolving #Lactic acidosis-Resolving #2/2 Toxic Shock Syndrome #Leukocytosis - Resolved #Coagulopathy 2/2 toxic shock syndrome - Resolved -On admission, lactic acid: 7.6, peaked to 10.0 (at 12/26), now down trending to 2.5 -On admission, WBC: 5.8, peaked to 52.9 (at 12/31), now down trending to 7.6 -Blood Cx (12/22/2024): Youssef-sensitive Streptococcus pyogenes (Group A Streptococcus) x2/2 -Likely main etiology of sepsis with toxic shock syndrome. -Timeline of antibiotic regimen given in ICU detailed below: 1. IV vancomycin dosed by pharmacy [12/22-12/25, discontinued due to MRSA(-)] 2. IV clindamycin 600 mg q8HR [12/22-12/30, dc'd due to concern for Drug induced Thrombocytopenia and no longer needed for TSS] 3. IV cefepime 2 gm q12HR [12/22-12/24, discontinued after TSS became favored diagnosis] 4. IV meropenem 1000 mg q8HR [12/24-12/30, dc'd due to possible Drug induced Thrombocytopenia] 5. IV Ceftriaxone 2 g qday [12/30 - 01/01 for total ABX course of 10 days] -Blood Cx (12/28): Coag Negative Staph Plan: -Continue Would care management -Bilateral Above Knee Amputation (AKA) has been discussed, but currently undecided. - will need to follow up outpatient with Surgery -pending insurance auth for LTAC. #Atrial fibrillation w/ RVR #Acute systolic and diastolic dysfunction w/ mildly reduced EF [40-45%] -12/22 echocardiogram showed reduced EF of 45% -Episodes of A fib w/ RVR during ICU. CHADS-VASc score 3 (female, CHF, hypertension) Plan: -Patient on Amiodarone PO -per EGD and cololoscopy note -no active bleeding -started Apixaban 5 BID #YOU 2/2 Distributive Shockresolved #ATN -On admission, BUN:14, Cr: 1.8 (baseline 0.7), eGFR:33 -Likely combination of pre-renal and intrinsic cause of YOU due to distributive shock and infection. -Hemodialysis sessions: 12/24, 12/26, 12/27, 12/29, 12/31, 01/01 -Urine Output: 1.3L Plan: -Given stability, hemodialysis unlikely -Strict I's & O's -Avoid nephrotoxins -Renally dose medications #GI bleed R/O #Anemia, Microcytic -Patient has Chronic Anemia with trending down hemoglobin. -Throughout stay in ICU, risk of stress ulcers with thrombocytopenia, coagulopathy, intubation, critical illness. -Received total 3 Blood transfusions -EGD 01/02 showed gastritis and no bleeding -Colonoscopy 01/04 showed internal hemorrhoids with normal colon -Current Hgb: 9.0 Plan: -Continue to monitor Hgb and sign of bleeding #Necrotic distal digits -Necrosis of distal right fingers, distal left middle finger, and distal right toes. -Likely due to prolonged usage of high dose pressors during events of shock. -Bilateral upper extremity duplex US (01/03) showed no occlusive arterial disease. Plan: -Per general surgery, continue to monitor. #Acute respiratory failure with Hypoxia -Resolved #2/2 Severe Metabolic acidosis - Resolved -Patient discontinued intubation on 01/04 #Thrombocytopenia- Resolved #Hyperglycemia- Resolved #Constipation- Resolved Disposition: Tele Diet: Consistent Carbohydrate GI prophylaxis: IV protonix DVT prophylaxis:Elequise 5 BID Code: DNR Patient care was discussed with attending physician Dr. Moris Bermudez MD PGY-3 I have carefully reviewed this document. Due to imperfections in the voice software, there could be grammatical errors including phonetic/typographic errors. This in no way compromises the medical care the patient is receiving
[2025-01-08 11:00] LABS: Basophils # (Auto) 0.0 Thou/mm3 (0.0-0.2); Basophils % (Auto) 0 % (0-2.5); Eosinophils # (Auto) 0.0 Thou/mm3 (0.0-0.5); Eosinophils % (Auto) 0 % (0-10); Hematocrit 27.7 % (36.0-46.0); Immature Granulocytes Auto 0.04 Thou/mm3 (0.00-0.00); Lymphocytes # (Auto) 0.7 Thou/mm3 (1.0-4.8); Lymphocytes % (Auto) 9 % (10-50); Mean Corpuscular HGB Conc 30.7 g/dl (31.0-37.0); Mean Corpuscular Hemoglobin 27.0 pg (25.0-35.0); Mean Corpuscular Volume 88 fL (80-100); Monocytes # (Auto) 0.6 Thou/mm3 (0.0-0.8); Monocytes % (Auto) 7 % (0-12); Neutrophils # (Auto) 6.4 Thou/mm3 (1.8-7.7); Neutrophils % (Auto) 83 % (37-80); Nucleated Red Blood Cell # 0.00 Thou/mm3 (0.00-0.00); Nucleated Red Blood Cell % 0 /100 WBC (0); Platelet Count 183 Thou/mm3 (140-440); RDW Standard Deviation 55.9 fL (36.4-46.3); Red Blood Count 3.15 Miln/mm3 (4.00-5.20); White Blood Count 7.7 Thou/mm3 (3.6-11.0)
[2025-01-08 11:58] LABS: Hemoglobin 8.5 g/dL (12.0-16.0)
--- NOTE | 2025-01-08 14:25 | ESPR_ITS ---
<Statement entered by Urszula Eagle MD - 01/09/25 19:11> I personally examined the patient evaluated appears today I personally inquired well patient was started back on her medication with no problems maintaining sinus rhythm not have any chest pain shortness evaluated patient with resident physician PGY 2 Dr. Abdullahi GLORIA agree with treatment plan recommendation will continue to monitor the patient closely Documentation for date of: 01/08/25 Subjective Subjective Interval history: No acute overnight events. Seen and examined at bedside and has no complaints. Telemetry reviewed and patient appears to be in sinus rhythm with heart rate in the 70s. Continues to be on amiodarone 2 mg p.o. twice daily and started on Eliquis 5 mg twice daily today. Other vital signs stable as she is afebrile, saturating 100% on 2 L nasal cannula. Slight downtrend in hemoglobin from 8.8 to 8.5 but otherwise labs are unremarkable. Pending insurance authorization for LTAC. Exam Vital Signs Temp Pulse Resp BP Pulse Ox O2 Del Method O2 Flow Rate 97.0 F 68 21 H 140/80 H 96 Nasal Cannula 2 01/08/25 12:00 01/08/25 12:00 01/08/25 12:00 01/08/25 12:00 01/08/25 12:00 01/08/25 12:00 01/08/25 12:00 FiO2 71 01/08/25 08:34 Narrative Exam General: morbidly obese, AOx3, no acute distress, able to speak full sentences HEENT: NC/AT, mucous membranes moist, bilateral sclera anicteric Cardiovascular: regular rate and rhythm, S1/S2 present, no murmurs appreciated Pulmonary: clear to auscultation bilaterally, no rales/rhonchi/wheezes Abdominal: soft, non-tender, non-distended, no rebound/guarding, normal bowel sounds present Musculoskeletal: normal ROM, no peripheral edema Skin: severe hyperkeratotic changes bilaterally; majority of bullae have ruptured, wounds have been dressed; cellulitis appears to be improving, withdrawing from marked borders Objective Labs 01/08/25 10:41 01/08/25 06:43 Labs: Laboratory Results - last 24 hr 01/08/25 01/08/25 06:43 10:41 WBC 7.7 RBC 3.15 L Hgb 8.5 L Hct 27.7 L MCV 88 MCH 27.0 MCHC 30.7 L RDW Std Deviation 55.9 H Plt Count 183 D Neut % (Auto) 83 H Lymph % (Auto) 9 L Kay % (Auto) 7 Eos % (Auto) 0 Baso % (Auto) 0 Neut # (Auto) 6.4 Lymph # (Auto) 0.7 L Kay # (Auto) 0.6 Eos # (Auto) 0.0 Baso # (Auto) 0.0 Immature Gran # (Auto) 0.04 H Absolute Nucleated RBC 0.00 Immature Gran % 1 H Nucleated RBC % 0 Sodium 143 Potassium 4.2 Chloride 103 Carbon Dioxide 29.1 Anion Gap 11 BUN 24 H Creatinine 0.6 Estim Creat Clear Calc 147.4 eGFR > 60 BUN/Creatinine Ratio 40 H Glucose 109 H Calculated Osmolality 289 Calcium 8.7 Corrected Calcium 9.5 Phosphorus 3.9 Magnesium 2.0 Total Bilirubin 0.9 AST 35 H ALT 38 Alkaline Phosphatase 179 H Total Protein 6.7 Albumin 3.0 L Globulin 3.7 H Albumin/Globulin Ratio 0.8 L ABG Interpretation ABG results: 12/22/24 12/22/24 12/23/24 16:49 23:40 13:05 ABG pH 7.39 7.29 L D ABG pCO2 33 37 ABG pO2 60 L 73 L ABG HCO3 20 18 L ABG O2 Saturation 92 94 ABG Base Excess -5 L -8 L VBG pH 7.35 VBG pCO2 37 VBG pO2 27 VBG Base Excess -5 L 12/24/24 12/24/24 12/24/24 08:54 17:12 17:19 ABG pH 7.25 L 7.16 L* ABG pCO2 34 36 ABG pO2 166 H D 127 H D ABG HCO3 15 L 13 L ABG O2 Saturation 100 H 99 H ABG Base Excess -11 L -15 L VBG pH 7.12 L VBG pCO2 42 VBG pO2 44 VBG Base Excess -15 L 12/24/24 12/24/24 12/25/24 19:45 22:40 04:47 ABG pH 7.10 L* 7.21 L D 7.36 D ABG pCO2 50 H D 38 D 37 ABG pO2 249 H D 249 H 191 H D ABG HCO3 15 L 15 L 21 ABG O2 Saturation 100 H 100 H 100 H ABG Base Excess -14 L -12 L -4 L VBG pH VBG pCO2 VBG pO2 VBG Base Excess 12/25/24 12/25/24 12/26/24 15:59 19:55 04:10 ABG pH 7.41 7.41 7.36 ABG pCO2 37 39 37 ABG pO2 128 H D 123 H 99 D ABG HCO3 23 24 21 ABG O2 Saturation 100 H 99 H 98 ABG Base Excess -1 0 -4 L VBG pH VBG pCO2 VBG pO2 VBG Base Excess 12/27/24 12/27/24 12/28/24 04:08 09:45 04:14 ABG pH 7.47 H D 7.42 7.39 ABG pCO2 36 41 45 ABG pO2 82 L 97 114 H ABG HCO3 26 27 H 27 H ABG O2 Saturation 98 99 H 99 H ABG Base Excess 2 2 2 VBG pH VBG pCO2 VBG pO2 VBG Base Excess 12/29/24 12/30/24 12/31/24 04:30 04:50 04:20 ABG pH 7.38 7.37 7.39 ABG pCO2 46 47 45 ABG pO2 109 H 121 H 83 D ABG HCO3 27 H 27 H 27 H ABG O2 Saturation 99 H 99 H 97 ABG Base Excess 1 1 2 VBG pH VBG pCO2 VBG pO2 VBG Base Excess 01/01/25 01/02/25 01/03/25 04:38 04:13 04:52 ABG pH 7.41 7.43 7.47 H ABG pCO2 47 45 43 ABG pO2 100 92 131 H D ABG HCO3 30 H 29 H 31 H ABG O2 Saturation 99 H 99 H 100 H ABG Base Excess 5 H 4 H 7 H VBG pH VBG pCO2 VBG pO2 VBG Base Excess 01/04/25 09:00 ABG pH 7.48 H ABG pCO2 45 ABG pO2 74 L D ABG HCO3 33 H ABG O2 Saturation 94 ABG Base Excess 8 H VBG pH VBG pCO2 VBG pO2 VBG Base Excess Quality Measures Quality Measures VTE prophylaxis Assessment & Plan Assessment Current Active Medications: Generic Name Dose Route Start Last Admin Trade Name Freq PRN Reason Stop Dose Admin Albuterol/Ipratropium 3 ml 12/23/24 09:36 Albuterol/Ipratropium (Duoneb) Rt Ginny 3 Ml Nebu INH 01/22/25 07:44 Q8HRRT PRN wheezing Amiodarone HCl 200 mg 01/07/25 09:00 01/08/25 09:37 Amiodarone Hcl 200 Mg Tablet PO 02/06/25 08:59 200 mg BID TRACY Administration Apixaban 5 mg 01/08/25 21:00 Apixaban 2.5 Mg Tablet PO 02/07/25 20:59 BID TRACY Ascorbic Acid 500 mg 01/07/25 21:00 01/08/25 09:38 Ascorbic Acid 250 Mg Tablet PO 02/06/25 20:59 500 mg BID TRACY Administration Clotrimazole 0 gm 12/23/24 09:00 01/08/25 09:37 Clotrimazole Cr 1% 30 Gm Tube TOP 01/22/25 08:59 1 applicatio BID TRACY Administration Dextrose 25 ml 12/22/24 17:09 12/25/24 23:07 Dextrose 50%-Water Inj 50 Ml Syringe IV 01/21/25 17:08 25 ml Q15MIN PRN Administration BG 50-70 responsive npo pt Dextrose 50 ml 12/22/24 17:09 12/25/24 14:03 Dextrose 50%-Water Inj 50 Ml Syringe IV 01/21/25 17:08 50 ml Q15MIN PRN Administration BG <50 OR BG <70 & pt unresponsive Glucagon 1 mg 12/22/24 17:09 Glucagon Inj 1 Mg Vial IM Q15MIN PRN BG <70, and no IV access Hydromorphone HCl 1 mg 01/04/25 18:44 01/07/25 21:37 Hydromorphone Inj 2 Mg/Ml Vial IVP 01/09/25 18:43 1 mg Q4HR PRN Administration Pain (1-6) Insulin Degludec 25 unit 01/03/25 09:00 01/04/25 08:26 Insulin Degludec 5 Unit/0.05 Ml (Per 5 Units) SC 02/02/25 08:59 Not Given On Hold: 01/04/25 08:42 QDAY [facility] Insulin Human Lispro 0 unit 01/07/25 21:00 01/08/25 11:15 Insulin Lispro (Admelog) 1 Unit/0.01 Ml Unit SC 02/06/25 20:59 Not Given ACHS [facility] Protocol Multivitamins 1 tab 01/08/25 09:00 01/08/25 09:37 Multivitamins Tablet PO 02/07/25 08:59 1 tab QDAY TRACY Administration Neomycin/Polymyxin/Bacitracin 0 gm 01/04/25 22:00 01/08/25 06:30 Mehul/Poly/Ethan (Neosporin) Oint 15 Gm Tube TOP 01/11/25 21:59 1 applicatio TID TRACY Administration Ondansetron HCl 4 mg 12/22/24 17:09 Ondansetron Inj 2 Mg/Ml Inj 2 Ml IVP 01/21/25 17:08 Q6H PRN NAUSEA OR VOMITING Protocol Polyethylene Glycol 17 gm 01/07/25 10:00 01/08/25 09:37 Polyethylene Glycol 17 Gm Packet PO 02/06/25 09:59 17 gm QDAY TRACY Administration Sennosides 1 tab 01/07/25 10:00 01/08/25 09:37 Senna Tablet PO 02/06/25 09:59 1 tab QDAY TRACY Administration Protocol Sodium Hypochlorite 473 ml 01/07/25 21:00 01/08/25 09:40 Sod Hypochlorite 1/4 Str 473 Ml Btl IRRIG 02/06/25 20:59 1 appln BID TRACY Administration Zinc Sulfate 220 mg 01/08/25 09:00 01/08/25 09:41 Zinc Sulfate 220 Mg Capsule PO 02/21/25 08:59 220 mg QDAY TRACY Administration Plan 54-year-old female with past medical history of IDDM2, bilateral lower limb lymphedema, asthma, epilepsy, morbid obesity who is wheelchair-bound for 9 years and presented on 12/22/24 for left lower extremity pain and admitted to the ICU for distributive shock and has since been downgraded to floors. Cardiology team was consulted because of new onset A-fib with RVR and newly diagnosed HFrEF. #New onset A-fib with RVR, likely induced by shock state and cellulitis #Streptococcus pyogenes bacteremia 2/2 LLE cellulitis Presented with sepsis secondary to left leg cellulitis that required ICU-level care for pressor support for distributive/septic shock. During her stay she developed A-fib with RVR with no prior history. Has been on and off of amiodarone drip and has since been transitioned to oral amiodarone and now sinus rhythm and rate controlled. ? Continue amiodarone 200 mg p.o. twice daily ? Eliquis 5 mg p.o. twice daily ? Keep K > 4, Mg > 2 ? 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 Troponin was negative. Echo on 11/2024 was overall a poor study due to body habitus but showed EF 40- 45% with stage 1 diastolic dysfunction. RVSP 39 mmHg with RAP of 8. Mild pulmonary hypertension, trace MR, mild TR. ? Recommend starting low-dose metoprolol succinate vs entresto to begin GDMT if BP, HR, and renal function permits ? Strict I/O's #Normocytic anemia #Concern for acute GI bleed from stress induced gastritis/ulcer Hemoglobin noted to have downtrended during admission as initial was 12.4 that reached 7.2 on 01/01 and transfused 1 unit but on 01/02 was 6.9 and and 2 units. Since then hemoglobin has remained stable between 8-9. EGD showed esophagitis and gastritis characterized by erythema and colonoscopy showed internal hemorrhoids. Iron panel showed low iron, TIBC, iron saturation, and unsaturated iron binding. ? Continue management per primary team #Distributive shock most likely secondary to sepsis, resolved #Sepsis secondary to left leg cellulitis #Toxic shock syndrome #Lower extremity lymphedema #History of seizure disorder #History of COPD #Elevated bilirubin, elevated AST, hypoalbuminemia #Lactic acidosis improving s/p CRRT #YOU #Non-anion gap metabolic acidosis ? Continue management per primary team ----- Plan discussed with attending physician Dr. Fco Gloria MD PGY-2 Internal Medicine
[2025-01-08] MEDS: Artificial Tears 225 DROP/15 ML BTL BOTH EYES (15:25)
--- NOTE | 2025-01-08 17:06 | ESPR_ITS ---
Documentation for date of: 01/08/25 Subjective Subjective Interval history: Patient evaluated Hemoglobin hematocrit 8.5 and 27.7 Exam Vital Signs Temp Pulse Resp BP Pulse Ox O2 Del Method O2 Flow Rate 97.2 F 72 20 137/90 H 100 Nasal Cannula 2 01/08/25 16:00 01/08/25 16:00 01/08/25 16:00 01/08/25 16:00 01/08/25 16:00 01/08/25 16:00 01/08/25 12:00 FiO2 71 01/08/25 08:34 Objective Labs 01/08/25 10:41 01/08/25 06:43 Labs: Laboratory Results - last 24 hr 01/08/25 01/08/25 06:43 10:41 WBC 7.7 RBC 3.15 L Hgb 8.5 L Hct 27.7 L MCV 88 MCH 27.0 MCHC 30.7 L RDW Std Deviation 55.9 H Plt Count 183 D Neut % (Auto) 83 H Lymph % (Auto) 9 L [place] % (Auto) 7 Eos % (Auto) 0 Baso % (Auto) 0 Neut # (Auto) 6.4 Lymph # (Auto) 0.7 L [place] # (Auto) 0.6 Eos # (Auto) 0.0 Baso # (Auto) 0.0 Immature Gran # (Auto) 0.04 H Absolute Nucleated RBC 0.00 Immature Gran % 1 H Nucleated RBC % 0 Sodium 143 Potassium 4.2 Chloride 103 Carbon Dioxide 29.1 Anion Gap 11 BUN 24 H Creatinine 0.6 Estim Creat Clear Calc 147.4 eGFR > 60 BUN/Creatinine Ratio 40 H Glucose 109 H Calculated Osmolality 289 Calcium 8.7 Corrected Calcium 9.5 Phosphorus 3.9 Magnesium 2.0 Total Bilirubin 0.9 AST 35 H ALT 38 Alkaline Phosphatase 179 H Total Protein 6.7 Albumin 3.0 L Globulin 3.7 H Albumin/Globulin Ratio 0.8 L Impressions Impression: Internal hemorrhoids Gastritis Relatively stable hemoglobin hematocrit Continue to monitor CBC ABG Interpretation ABG results: 12/22/24 12/22/24 12/23/24 16:49 23:40 13:05 ABG pH 7.39 7.29 L D ABG pCO2 33 37 ABG pO2 60 L 73 L ABG HCO3 20 18 L ABG O2 Saturation 92 94 ABG Base Excess -5 L -8 L VBG pH 7.35 VBG pCO2 37 VBG pO2 27 VBG Base Excess -5 L 12/24/24 12/24/24 12/24/24 08:54 17:12 17:19 ABG pH 7.25 L 7.16 L* ABG pCO2 34 36 ABG pO2 166 H D 127 H D ABG HCO3 15 L 13 L ABG O2 Saturation 100 H 99 H ABG Base Excess -11 L -15 L VBG pH 7.12 L VBG pCO2 42 VBG pO2 44 VBG Base Excess -15 L 12/24/24 12/24/24 12/25/24 19:45 22:40 04:47 ABG pH 7.10 L* 7.21 L D 7.36 D ABG pCO2 50 H D 38 D 37 ABG pO2 249 H D 249 H 191 H D ABG HCO3 15 L 15 L 21 ABG O2 Saturation 100 H 100 H 100 H ABG Base Excess -14 L -12 L -4 L VBG pH VBG pCO2 VBG pO2 VBG Base Excess 12/25/24 12/25/24 12/26/24 15:59 19:55 04:10 ABG pH 7.41 7.41 7.36 ABG pCO2 37 39 37 ABG pO2 128 H D 123 H 99 D ABG HCO3 23 24 21 ABG O2 Saturation 100 H 99 H 98 ABG Base Excess -1 0 -4 L VBG pH VBG pCO2 VBG pO2 VBG Base Excess 12/27/24 12/27/24 12/28/24 04:08 09:45 04:14 ABG pH 7.47 H D 7.42 7.39 ABG pCO2 36 41 45 ABG pO2 82 L 97 114 H ABG HCO3 26 27 H 27 H ABG O2 Saturation 98 99 H 99 H ABG Base Excess 2 2 2 VBG pH VBG pCO2 VBG pO2 VBG Base Excess 12/29/24 12/30/24 12/31/24 04:30 04:50 04:20 ABG pH 7.38 7.37 7.39 ABG pCO2 46 47 45 ABG pO2 109 H 121 H 83 D ABG HCO3 27 H 27 H 27 H ABG O2 Saturation 99 H 99 H 97 ABG Base Excess 1 1 2 VBG pH VBG pCO2 VBG pO2 VBG Base Excess 01/01/25 01/02/25 01/03/25 04:38 04:13 04:52 ABG pH 7.41 7.43 7.47 H ABG pCO2 47 45 43 ABG pO2 100 92 131 H D ABG HCO3 30 H 29 H 31 H ABG O2 Saturation 99 H 99 H 100 H ABG Base Excess 5 H 4 H 7 H VBG pH VBG pCO2 VBG pO2 VBG Base Excess 01/04/25 09:00 ABG pH 7.48 H ABG pCO2 45 ABG pO2 74 L D ABG HCO3 33 H ABG O2 Saturation 94 ABG Base Excess 8 H VBG pH VBG pCO2 VBG pO2 VBG Base Excess Assessment & Plan A&P Narrative # Drop in hemoglobin hematocrit etiology uncertain possible occult GI bleeding Consent will be obtained for possible fiberoptic esophagogastroduodenoscopy with possible biopsy therapeutic intervention under intravenous moderate sedation if negative will consider a fiberoptic colonoscopy After GoLytely prep # Other medical problems include metabolic encephalopathy Diabetes mellitus type 2 Atrial flutter/fibrillation on amiodarone drip Necrosis of the distal toes Mechanically ventilated Thank you very much for the opportunity to participate in the care of this patient Time Spent With Patient Time: Total time spent is greater than 50% in coordination of care (as documented) at patient's floor/unit and/or counseling patient: PROCEDURES: Arterial Line Size (Gauge): 20
[2025-01-08] MEDS: APIXABAN 2.5 MG TABLET 5 MG PO (20:40)
[2025-01-08] MEDS: DOCUSATE SOD LIQD 100 MG/10 ML UDC PO (20:43)
[2025-01-09] VITALS (11 sets, daily range): BP systolic 119–150; BP diastolic 67–76; PULSE 60–82; RESP 14–100; TEMP 35.6–36.3; O2SAT 92–100
--- NOTE | 2025-01-09 09:09 | ESPR_ITS ---
<Statement entered by Kyaw Subramanian MD - 01/09/25 14:37> I have discussed and was present for the essential components of the history, physical examination, diagnosis, and treatment plan with the resident. I agree with the patient's care as documented by the resident and amended herein by me. Kyaw Subramanian MD FACP. Documentation for date of: 01/09/25 Subjective Subjective Interval history: No Overnight events. Labs reviewed and patient examined at the bedside. Patient is currently pending LTAC disposition. Will likely happen on Friday. Patient is much more oriented and alert. Was able to engage in short discussion. Currently on amiodarone 200 mg p.o. twice daily and Eliquis 5 mg p.o. twice daily. Exam Vital Signs Temp Pulse Resp BP Pulse Ox O2 Del Method O2 Flow Rate 96.1 F L 70 25 H 138/76 H 100 Nasal Cannula 2 01/09/25 08:00 01/09/25 08:00 01/09/25 08:00 01/09/25 08:00 01/09/25 08:00 01/09/25 08:00 01/09/25 08:00 FiO2 78 01/08/25 20:01 Narrative Exam General: Alert, Morbidly obese, Drowsy Eye: EOMI, normal conjunctiva, no scleral icterus HENT: Normocephalic, dry oral mucosa. Neck: Supple, non-tender, no JVD, no lymphadenopathy Lungs: Labored respirations, symmetric chest rise, Clear to auscultate bilaterally, No wheezing, rhonchi, crackles Heart: Peripheral pulses intact bilaterally, Regular Rate and Rhythm. Abdomen: Soft, non-tender, non-distended, no palpable masses Musculoskeletal: Bilateral lower extremity erythema extending to thighs reaching towards the hip and torso with yellow crusts on top. Necrotic bilateral toes, right fingers, left middle fingers. Discolored lesion around right buttock. Cold distal extremity, Mild oozing of yellow fluid. Skin: Cold distal extremity. Refer to [facility]. Psychiatric: Cooperative, Awake and alert, Able to communicate through headshakes and eye movement Neuro: Cranial nerves II-XII grossly intact. Strength 1/5 throughout. Limited sensations in distal extremities. Objective Labs 01/09/25 08:50 01/09/25 11:17 Labs: Laboratory Results - last 24 hr 01/08/25 10:41 WBC 7.7 RBC 3.15 L Hgb 8.5 L Hct 27.7 L MCV 88 MCH 27.0 MCHC 30.7 L RDW Std Deviation 55.9 H Plt Count 183 D Neut % (Auto) 83 H Lymph % (Auto) 9 L [place] % (Auto) 7 Eos % (Auto) 0 Baso % (Auto) 0 Neut # (Auto) 6.4 Lymph # (Auto) 0.7 L [place] # (Auto) 0.6 Eos # (Auto) 0.0 Baso # (Auto) 0.0 Immature Gran # (Auto) 0.04 H Absolute Nucleated RBC 0.00 Immature Gran % 1 H Nucleated RBC % 0 ABG Interpretation ABG results: 12/22/24 12/22/24 12/23/24 16:49 23:40 13:05 ABG pH 7.39 7.29 L D ABG pCO2 33 37 ABG pO2 60 L 73 L ABG HCO3 20 18 L ABG O2 Saturation 92 94 ABG Base Excess -5 L -8 L VBG pH 7.35 VBG pCO2 37 VBG pO2 27 VBG Base Excess -5 L 12/24/24 12/24/24 12/24/24 08:54 17:12 17:19 ABG pH 7.25 L 7.16 L* ABG pCO2 34 36 ABG pO2 166 H D 127 H D ABG HCO3 15 L 13 L ABG O2 Saturation 100 H 99 H ABG Base Excess -11 L -15 L VBG pH 7.12 L VBG pCO2 42 VBG pO2 44 VBG Base Excess -15 L 12/24/24 12/24/24 12/25/24 19:45 22:40 04:47 ABG pH 7.10 L* 7.21 L D 7.36 D ABG pCO2 50 H D 38 D 37 ABG pO2 249 H D 249 H 191 H D ABG HCO3 15 L 15 L 21 ABG O2 Saturation 100 H 100 H 100 H ABG Base Excess -14 L -12 L -4 L VBG pH VBG pCO2 VBG pO2 VBG Base Excess 12/25/24 12/25/24 12/26/24 15:59 19:55 04:10 ABG pH 7.41 7.41 7.36 ABG pCO2 37 39 37 ABG pO2 128 H D 123 H 99 D ABG HCO3 23 24 21 ABG O2 Saturation 100 H 99 H 98 ABG Base Excess -1 0 -4 L VBG pH VBG pCO2 VBG pO2 VBG Base Excess 12/27/24 12/27/24 12/28/24 04:08 09:45 04:14 ABG pH 7.47 H D 7.42 7.39 ABG pCO2 36 41 45 ABG pO2 82 L 97 114 H ABG HCO3 26 27 H 27 H ABG O2 Saturation 98 99 H 99 H ABG Base Excess 2 2 2 VBG pH VBG pCO2 VBG pO2 VBG Base Excess 12/29/24 12/30/24 12/31/24 04:30 04:50 04:20 ABG pH 7.38 7.37 7.39 ABG pCO2 46 47 45 ABG pO2 109 H 121 H 83 D ABG HCO3 27 H 27 H 27 H ABG O2 Saturation 99 H 99 H 97 ABG Base Excess 1 1 2 VBG pH VBG pCO2 VBG pO2 VBG Base Excess 01/01/25 01/02/25 01/03/25 04:38 04:13 04:52 ABG pH 7.41 7.43 7.47 H ABG pCO2 47 45 43 ABG pO2 100 92 131 H D ABG HCO3 30 H 29 H 31 H ABG O2 Saturation 99 H 99 H 100 H ABG Base Excess 5 H 4 H 7 H VBG pH VBG pCO2 VBG pO2 VBG Base Excess 01/04/25 09:00 ABG pH 7.48 H ABG pCO2 45 ABG pO2 74 L D ABG HCO3 33 H ABG O2 Saturation 94 ABG Base Excess 8 H VBG pH VBG pCO2 VBG pO2 VBG Base Excess Quality Measures Quality Measures VTE prophylaxis Assessment & Plan Assessment Current Active Medications: Generic Name Dose Route Start Last Admin Trade Name Freq PRN Reason Stop Dose Admin Albuterol/Ipratropium 3 ml 12/23/24 09:36 Albuterol/Ipratropium (Duoneb) Rt Ginny 3 Ml Nebu INH 01/22/25 07:44 Q8HRRT PRN wheezing Amiodarone HCl 200 mg 01/07/25 09:00 01/08/25 20:41 Amiodarone Hcl 200 Mg Tablet PO 02/06/25 08:59 200 mg BID TRACY Administration Apixaban 5 mg 01/08/25 21:00 01/08/25 20:40 Apixaban 2.5 Mg Tablet PO 02/07/25 20:59 5 mg BID TRACY Administration Artificial Tears 0 drop 01/08/25 14:40 01/08/25 15:25 Artificial Tears 225 Drop/15 Ml Btl BOTH EYES 02/07/25 14:39 1 applicatio PRN PRN Administration TO KEEP EYES MOIST Ascorbic Acid 500 mg 01/07/25 21:00 01/08/25 20:41 Ascorbic Acid 250 Mg Tablet PO 02/06/25 20:59 500 mg BID TRACY Administration Clotrimazole 0 gm 12/23/24 09:00 01/08/25 20:43 Clotrimazole Cr 1% 30 Gm Tube TOP 01/22/25 08:59 1 applicatio BID TRACY Administration Dextrose 25 ml 12/22/24 17:09 12/25/24 23:07 Dextrose 50%-Water Inj 50 Ml Syringe IV 01/21/25 17:08 25 ml Q15MIN PRN Administration BG 50-70 responsive npo pt Dextrose 50 ml 12/22/24 17:09 12/25/24 14:03 Dextrose 50%-Water Inj 50 Ml Syringe IV 01/21/25 17:08 50 ml Q15MIN PRN Administration BG <50 OR BG <70 & pt unresponsive Docusate Sodium 100 mg 01/08/25 21:00 01/08/25 20:43 Docusate Sod Liqd 100 Mg/10 Ml Udc PO 02/07/25 20:59 100 mg BID TRACY Administration Protocol Glucagon 1 mg 12/22/24 17:09 Glucagon Inj 1 Mg Vial IM Q15MIN PRN BG <70, and no IV access Hydromorphone HCl 1 mg 01/04/25 18:44 01/07/25 21:37 Hydromorphone Inj 2 Mg/Ml Vial IVP 01/09/25 18:43 1 mg Q4HR PRN Administration Pain (1-6) Insulin Degludec 25 unit 01/03/25 09:00 01/04/25 08:26 Insulin Degludec 5 Unit/0.05 Ml (Per 5 Units) SC 02/02/25 08:59 Not Given On Hold: 01/04/25 08:42 QDAY TRACY Insulin Human Lispro 0 unit 01/07/25 21:00 01/08/25 20:40 Insulin Lispro (Admelog) 1 Unit/0.01 Ml Unit SC 02/06/25 20:59 Not Given ACHS [facility] Protocol Multivitamins 1 tab 01/08/25 09:00 01/08/25 09:37 Multivitamins Tablet PO 02/07/25 08:59 1 tab QDAY TRACY Administration Neomycin/Polymyxin/Bacitracin 0 gm 01/04/25 22:00 01/09/25 05:12 Mehul/Poly/Ethan (Neosporin) Oint 15 Gm Tube TOP 01/11/25 21:59 1 applicatio TID TRACY Administration Ondansetron HCl 4 mg 12/22/24 17:09 Ondansetron Inj 2 Mg/Ml Inj 2 Ml IVP 01/21/25 17:08 Q6H PRN NAUSEA OR VOMITING Protocol Polyethylene Glycol 17 gm 01/07/25 10:00 01/08/25 09:37 Polyethylene Glycol 17 Gm Packet PO 02/06/25 09:59 17 gm QDAY TRACY Administration Sennosides 1 tab 01/07/25 10:00 01/08/25 09:37 Senna Tablet PO 02/06/25 09:59 1 tab QDAY TRACY Administration Protocol Sodium Hypochlorite 473 ml 01/07/25 21:00 01/08/25 20:43 Sod Hypochlorite 1/4 Str 473 Ml Btl IRRIG 02/06/25 20:59 1 appln BID TRACY Administration Zinc Sulfate 220 mg 01/08/25 09:00 01/08/25 09:41 Zinc Sulfate 220 Mg Capsule PO 02/21/25 08:59 220 mg QDAY TRACY Administration Plan 54-year-old female with past medical history of prior MO?, Insulin-dependent type 2 diabetes, lymphedema, lipedema, asthma, epilepsy, morbid obesity, nonambulatory for 9 years, wheelchair-bound presenting to the ED on 12/22 with left lower extremity pain and oozing. Admitted to ICU for management of cellulitis and shock. Patient has been stabilized and has [facility] #Cellulitis 2/2 Streptococcus pyogenes bacteremia ? Resolving #Distributive Shock-Resolving #Lactic acidosis-Resolving #2/2 Toxic Shock Syndrome #Leukocytosis - Resolved #Coagulopathy 2/2 toxic shock syndrome - Resolved -On admission, lactic acid: 7.6, peaked to 10.0 (at 12/26), now down trending to 2.5 -On admission, WBC: 5.8, peaked to 52.9 (at 12/31), now down trending to 7.6 -Blood Cx (12/22/2024): Youssef-sensitive Streptococcus pyogenes (Group A Streptococcus) x2/2 -Likely main etiology of sepsis with toxic shock syndrome. -Timeline of antibiotic regimen given in ICU detailed below: 1. IV vancomycin dosed by pharmacy [12/22-12/25, discontinued due to MRSA(-)] 2. IV clindamycin 600 mg q8HR [12/22-12/30, dc'd due to concern for Drug induced Thrombocytopenia and no longer needed for TSS] 3. IV cefepime 2 gm q12HR [12/22-12/24, discontinued after TSS became favored diagnosis] 4. IV meropenem 1000 mg q8HR [12/24-12/30, dc'd due to possible Drug induced Thrombocytopenia] 5. IV Ceftriaxone 2 g qday [12/30 - 01/01 for total ABX course of 10 days] -Blood Cx (12/28): Coag Negative Staph Plan: -Continue Would care management -Bilateral Above Knee Amputation (AKA) has been discussed, but currently undecided. - will need to follow up outpatient with Surgery -pending insurance auth for LTAC. #Atrial fibrillation w/ RVR #Acute systolic and diastolic dysfunction w/ mildly reduced EF [40-45%] -12/22 echocardiogram showed reduced EF of 45% -Episodes of A fib w/ RVR during ICU. CHADS-VASc score 3 (female, CHF, hypertension) Plan: -Patient on Amiodarone PO -per EGD and cololoscopy note -no active bleeding -started Apixaban 5 BID #YOU 2/2 Distributive Shockresolved #ATN -On admission, BUN:14, Cr: 1.8 (baseline 0.7), eGFR:33 -Likely combination of pre-renal and intrinsic cause of YOU due to distributive shock and infection. -Hemodialysis sessions: 12/24, 12/26, 12/27, 12/29, 12/31, 01/01 -Urine Output: 1.3L Plan: -Given stability, hemodialysis unlikely -Strict I's & O's -Avoid nephrotoxins -Renally dose medications #GI bleed R/O #Anemia, Microcytic -Patient has Chronic Anemia with trending down hemoglobin. -Throughout stay in ICU, risk of stress ulcers with thrombocytopenia, coagulopathy, intubation, critical illness. -Received total 3 Blood transfusions -EGD 01/02 showed gastritis and no bleeding -Colonoscopy 01/04 showed internal hemorrhoids with normal colon -Current Hgb: 9.0 Plan: -Continue to monitor Hgb and sign of bleeding #Necrotic distal digits -Necrosis of distal right fingers, distal left middle finger, and distal right toes. -Likely due to prolonged usage of high dose pressors during events of shock. -Bilateral upper extremity duplex US (01/03) showed no occlusive arterial disease. Plan: -Per general surgery, continue to monitor. #Acute respiratory failure with Hypoxia -Resolved #2/2 Severe Metabolic acidosis - Resolved -Patient discontinued intubation on 01/04 #Thrombocytopenia- Resolved #Hyperglycemia- Resolved #Constipation- Resolved Disposition: Tele Diet: Consistent Carbohydrate GI prophylaxis: IV protonix DVT prophylaxis:Elequise 5 BID Code: DNR Assessment and plan discussed with my attending physician Dr. Moris Avelar (PGY-1) - Internal medicine resident
[2025-01-09] MEDS: ZINC SULFATE 220 MG CAPSULE PO (09:37)
[2025-01-09] MEDS: DOCUSATE SOD LIQD 100 MG/10 ML UDC PO ×2 (09:37→20:36)
[2025-01-09] MEDS: APIXABAN 2.5 MG TABLET 5 MG PO ×2 (09:37→20:38)
[2025-01-09] MEDS: ASCORBIC ACID 250 MG TABLET 500 MG PO ×2 (09:37→20:38)
[2025-01-09] MEDS: AMIODARONE HCL 200 MG TABLET PO ×2 (09:38→20:36)
[2025-01-09] MEDS: MULTIVITAMINS TABLET 1 TAB PO (09:38)
[2025-01-09] MEDS: POLYETHYLENE GLYCOL 17 GM PACKET PO (09:39)
[2025-01-09] MEDS: CLOTRIMAZOLE CR 1% 30 GM TUBE TOP ×2 (09:50→20:38)
[2025-01-09] MEDS: SOD HYPOCHLORITE 1/4 STR 473 ML BTL IRRIG ×2 (09:50→20:38)
[2025-01-09 10:00] LABS: Basophils # (Auto) 0.0 Thou/mm3 (0.0-0.2); Basophils % (Auto) 0 % (0-2.5); Eosinophils # (Auto) 0.0 Thou/mm3 (0.0-0.5); Eosinophils % (Auto) 0 % (0-10); Hematocrit 27.3 % (36.0-46.0); Immature Granulocytes Auto 0.06 Thou/mm3 (0.00-0.00); Lymphocytes # (Auto) 0.9 Thou/mm3 (1.0-4.8); Lymphocytes % (Auto) 11 % (10-50); Mean Corpuscular HGB Conc 30.4 g/dl (31.0-37.0); Mean Corpuscular Hemoglobin 26.9 pg (25.0-35.0); Mean Corpuscular Volume 89 fL (80-100); Monocytes # (Auto) 0.9 Thou/mm3 (0.0-0.8); Monocytes % (Auto) 11 % (0-12); Neutrophils # (Auto) 6.2 Thou/mm3 (1.8-7.7); Neutrophils % (Auto) 78 % (37-80); Nucleated Red Blood Cell # 0.00 Thou/mm3 (0.00-0.00); Nucleated Red Blood Cell % 0 /100 WBC (0); Platelet Count 172 Thou/mm3 (140-440); RDW Standard Deviation 57.3 fL (36.4-46.3); Red Blood Count 3.08 Miln/mm3 (4.00-5.20); White Blood Count 8.0 Thou/mm3 (3.6-11.0)
[2025-01-09 10:15] LABS: Hemoglobin 8.3 g/dL (12.0-16.0)
--- NOTE | 2025-01-09 10:23 | ESPR_ITS ---
Documentation for date of: 01/09/25 Subjective Subjective Interval history: Patient seen and assessed at bedside. No new complaints this morning, still with mild pain in her legs however denies chest pain, shortness of breath, palpitations. Reports coughing has improved. BP 138/76 this morning,, systolics 130s to 150s. Heart rate 60 to 80s. On telemetry, patient is in sinus rhythm with occasional bigeminy. Hemoglobin stable at 8.5. Potassium 4.2, magnesium 2.0, creatinine 0.6. Continue on Eliquis 5 mg twice daily and amiodarone 200 twice daily. Pending insurance approval for discharge to SNF. Exam Vital Signs Temp Pulse Resp BP Pulse Ox O2 Del Method O2 Flow Rate 96.1 F L 70 25 H 138/76 H 100 Nasal Cannula 2 01/09/25 08:00 01/09/25 09:38 01/09/25 08:00 01/09/25 09:38 01/09/25 08:00 01/09/25 08:00 01/09/25 08:00 FiO2 78 01/08/25 20:01 Narrative Exam Physical Exam General: Awake and in no acute distress. Able to answer questions appropriately. Morbidly obese female. Weak voice s/p extubation. HEENT: Normocephalic, atraumatic, mucous membranes moist. Dried blood on philtrum. Heart: Regular rate and rhythm, normal S1 and S2, no murmurs. Lungs: Congestion upper airways. Decreased breath sounds due to large body habitus. Abdomen: Soft, obese, nondistended, nontender, positive bowel sounds. No guarding or rebound tenderness. Neurologic: Alert and oriented x3, no gross neurological deficit, and patient able to move all 4 extremities. Extremities: Severe hyperkeratotic changes bilaterally. Bullae ruptured and healing well, wounds have been dressed. Cellulites appears to be improving, withdrawing from marked borders. Objective Labs 01/10/25 08:16 01/10/25 08:16 Labs: Laboratory Results - last 24 hr 01/08/25 01/09/25 10:41 08:50 WBC 7.7 8.0 RBC 3.15 L 3.08 L Hgb 8.5 L 8.3 L Hct 27.7 L 27.3 L MCV 88 89 MCH 27.0 26.9 MCHC 30.7 L 30.4 L RDW Std Deviation 55.9 H 57.3 H Plt Count 183 D 172 Neut % (Auto) 83 H 78 Lymph % (Auto) 9 L 11 [place] % (Auto) 7 11 Eos % (Auto) 0 0 Baso % (Auto) 0 0 Neut # (Auto) 6.4 6.2 Lymph # (Auto) 0.7 L 0.9 L [place] # (Auto) 0.6 0.9 H Eos # (Auto) 0.0 0.0 Baso # (Auto) 0.0 0.0 Immature Gran # (Auto) 0.04 H 0.06 H Absolute Nucleated RBC 0.00 0.00 Immature Gran % 1 H 1 H Nucleated RBC % 0 0 ABG Interpretation ABG results: 12/22/24 12/22/24 12/23/24 16:49 23:40 13:05 ABG pH 7.39 7.29 L D ABG pCO2 33 37 ABG pO2 60 L 73 L ABG HCO3 20 18 L ABG O2 Saturation 92 94 ABG Base Excess -5 L -8 L VBG pH 7.35 VBG pCO2 37 VBG pO2 27 VBG Base Excess -5 L 12/24/24 12/24/24 12/24/24 08:54 17:12 17:19 ABG pH 7.25 L 7.16 L* ABG pCO2 34 36 ABG pO2 166 H D 127 H D ABG HCO3 15 L 13 L ABG O2 Saturation 100 H 99 H ABG Base Excess -11 L -15 L VBG pH 7.12 L VBG pCO2 42 VBG pO2 44 VBG Base Excess -15 L 12/24/24 12/24/24 12/25/24 19:45 22:40 04:47 ABG pH 7.10 L* 7.21 L D 7.36 D ABG pCO2 50 H D 38 D 37 ABG pO2 249 H D 249 H 191 H D ABG HCO3 15 L 15 L 21 ABG O2 Saturation 100 H 100 H 100 H ABG Base Excess -14 L -12 L -4 L VBG pH VBG pCO2 VBG pO2 VBG Base Excess 12/25/24 12/25/24 12/26/24 15:59 19:55 04:10 ABG pH 7.41 7.41 7.36 ABG pCO2 37 39 37 ABG pO2 128 H D 123 H 99 D ABG HCO3 23 24 21 ABG O2 Saturation 100 H 99 H 98 ABG Base Excess -1 0 -4 L VBG pH VBG pCO2 VBG pO2 VBG Base Excess 12/27/24 12/27/24 12/28/24 04:08 09:45 04:14 ABG pH 7.47 H D 7.42 7.39 ABG pCO2 36 41 45 ABG pO2 82 L 97 114 H ABG HCO3 26 27 H 27 H ABG O2 Saturation 98 99 H 99 H ABG Base Excess 2 2 2 VBG pH VBG pCO2 VBG pO2 VBG Base Excess 12/29/24 12/30/24 12/31/24 04:30 04:50 04:20 ABG pH 7.38 7.37 7.39 ABG pCO2 46 47 45 ABG pO2 109 H 121 H 83 D ABG HCO3 27 H 27 H 27 H ABG O2 Saturation 99 H 99 H 97 ABG Base Excess 1 1 2 VBG pH VBG pCO2 VBG pO2 VBG Base Excess 01/01/25 01/02/25 01/03/25 04:38 04:13 04:52 ABG pH 7.41 7.43 7.47 H ABG pCO2 47 45 43 ABG pO2 100 92 131 H D ABG HCO3 30 H 29 H 31 H ABG O2 Saturation 99 H 99 H 100 H ABG Base Excess 5 H 4 H 7 H VBG pH VBG pCO2 VBG pO2 VBG Base Excess 01/04/25 09:00 ABG pH 7.48 H ABG pCO2 45 ABG pO2 74 L D ABG HCO3 33 H ABG O2 Saturation 94 ABG Base Excess 8 H VBG pH VBG pCO2 VBG pO2 VBG Base Excess Quality Measures Quality Measures VTE prophylaxis Assessment & Plan Assessment Current Active Medications: Generic Name Dose Route Start Last Admin Trade Name Freq PRN Reason Stop Dose Admin Albuterol/Ipratropium 3 ml 12/23/24 09:36 Albuterol/Ipratropium (Duoneb) Rt Ginny 3 Ml Nebu INH 01/22/25 07:44 Q8HRRT PRN wheezing Amiodarone HCl 200 mg 01/07/25 09:00 01/09/25 09:38 Amiodarone Hcl 200 Mg Tablet PO 02/06/25 08:59 200 mg BID TRACY Administration Apixaban 5 mg 01/08/25:00 01/09/25 09:37 Apixaban 2.5 Mg Tablet PO 02/07/25 20:59 5 mg BID TRACY Administration Artificial Tears 0 drop 01/08/25 14:40 01/08/25 15:25 Artificial Tears 225 Drop/15 Ml Btl BOTH EYES 02/07/25 14:39 1 applicatio PRN PRN Administration TO KEEP EYES MOIST Ascorbic Acid 500 mg 01/07/25 21:00 01/09/25 09:37 Ascorbic Acid 250 Mg Tablet PO 02/06/25 20:59 500 mg BID TRACY Administration Clotrimazole 0 gm 12/23/24 09:00 01/09/25 09:50 Clotrimazole Cr 1% 30 Gm Tube TOP 01/22/25 08:59 1 applicatio BID TRACY Administration Dextrose 25 ml 12/22/24 17:09 12/25/24 23:07 Dextrose 50%-Water Inj 50 Ml Syringe IV 01/21/25 17:08 25 ml Q15MIN PRN Administration BG 50-70 responsive npo pt Dextrose 50 ml 12/22/24 17:09 12/25/24 14:03 Dextrose 50%-Water Inj 50 Ml Syringe IV 01/21/25 17:08 50 ml Q15MIN PRN Administration BG <50 OR BG <70 & pt unresponsive Docusate Sodium 100 mg 01/08/25 21:00 01/09/25 09:37 Docusate Sod Liqd 100 Mg/10 Ml Udc PO 02/07/25 20:59 100 mg BID TRACY Administration Protocol Glucagon 1 mg 12/22/24 17:09 Glucagon Inj 1 Mg Vial IM Q15MIN PRN BG <70, and no IV access Hydromorphone HCl 1 mg 01/04/25 18:44 01/07/25 21:37 Hydromorphone Inj 2 Mg/Ml Vial IVP 01/09/25 18:43 1 mg Q4HR PRN Administration Pain (1-6) Insulin Degludec 25 unit 01/03/25 09:00 01/04/25 08:26 Insulin Degludec 5 Unit/0.05 Ml (Per 5 Units) SC 02/02/25 08:59 Not Given On Hold: 01/04/25 08:42 QDAY TRACY Insulin Human Lispro 0 unit 01/07/25 21:00 01/09/25 09:30 Insulin Lispro (Admelog) 1 Unit/0.01 Ml Unit SC 02/06/25 20:59 Not Given ACHS [facility] Protocol Multivitamins 1 tab 01/08/25 09:00 01/09/25 09:38 Multivitamins Tablet PO 02/07/25 08:59 1 tab QDAY TRACY Administration Neomycin/Polymyxin/Bacitracin 0 gm 01/04/25 22:00 01/09/25 05:12 Mehul/Poly/Ethan (Neosporin) Oint 15 Gm Tube TOP 01/11/25 21:59 1 applicatio TID TRACY Administration Ondansetron HCl 4 mg 12/22/24 17:09 Ondansetron Inj 2 Mg/Ml Inj 2 Ml IVP 01/21/25 17:08 Q6H PRN NAUSEA OR VOMITING Protocol Polyethylene Glycol 17 gm 01/07/25 10:00 01/09/25 09:39 Polyethylene Glycol 17 Gm Packet PO 02/06/25 09:59 17 gm QDAY TRACY Administration Sennosides 1 tab 01/07/25 10:00 01/09/25 09:37 Senna Tablet PO 02/06/25 09:59 1 tab QDAY TRACY Administration Protocol Sodium Hypochlorite 473 ml 01/07/25 21:00 01/09/25 09:50 Sod Hypochlorite 1/4 Str 473 Ml Btl IRRIG 02/06/25 20:59 1 appln BID TRACY Administration Zinc Sulfate 220 mg 01/08/25 09:00 01/09/25 09:37 Zinc Sulfate 220 Mg Capsule PO 02/21/25 08:59 220 mg QDAY TRACY Administration Plan Patient is a 54-year-old female with past medical history of IDDM2, bilateral lower limb lymphedema, lipedema, asthma, epilepsy, morbid obesity, wheelchair- bound for 9 years, was brought to the ED on 12/22/24 for left lower extremity pain and clear cirrhosis fluid oozing. Patient was admitted to the ICU for distributive shock. Cardiology team was consulted because of new onset A-fib with RVR and newly diagnosed CHF. #Newly diagnosed HFrEF (40-45%, 11/2024) #New onset A-fib with RVR likely induced by shock state #Streptococcus pyogenes bacteremia 2/2 LLE cellulitis Patient presented with sepsis secondary to left leg cellulitis, her condition worsened to distributive shock. During her stay she developed A-fib with RVR, with no known hx of afib, we started the patient on amiodarone drip. Even though her body habitus echo was done and showed ejection fraction of 40 to 45%. With normal RV function. BNP was 204 which most likely skewed by patient obesity. Troponin was negative. 12/22/24 Echo showed Over all poor images due to body habitus and technically difficult study. Normal left ventricular size and function.Stage I diastolic dysfunction. Estimated ejection fraction is 40-45%. Normal right ventricular size and function. RVSP 39 mm Hg with RAP 8. Mild pulmonary HTN Trace MR and Mild TR. TDS due to patient morbid and laying on supine view, couldn't move. (patient had open wounds under breast) 12/25/2024 patient was started on CRRT due to worsening lactic acidosis and kidney function, blood culture growing Streptococcus pyogenes. 12/27/2024, Amiodrine drip was stopped by the primary team as the patient converted to sinus rhythm. Patient was having tachycardia heart rate of 113 however it was regular sinus. 12/31/24, EKG showed atrial flutter with RVR with 2:1 AV block. Restarted on amiodarone drip 0.5 mg/min around 1PM however patient continues to be in afib w RVR. 01/01/25, continues to be in atrial flutter with RVR with 2: 1 AV block. QTc noted to be 556 on EKG however taking consideration the QRS is widened, QTc is actually likely around 480 calculated by [facility] formula (HR 135, QT interval 8 boxes). Her BUN is elevated at 42 as well as hemoglobin is dropping down over the last couple of days which is contributing to the RVR. Patient mostly has upper GI bleed mostly secondary to oozing of blood from the possible stress- induced gastritis. Recommended primary team to obtain stool guaiac has been GI consult. Discussed this with the critical care attending 01/02/25 -Still continues to be in flutter with variable block and heart rate is better controlled patient continues to be sedated and intubated. Recommend to continue amiodarone drip at 1 mg per minute until patient is able to take oral medications removed 2.7 L during dialysis yesterday. Hemoglobin is still lower at 6.9 today. Primary team planning to transfer the patient to 2 units of PRBC and GI team has been consulted this morning for further evaluation. 01/04/2025?patient rhythm controlled on amiodarone drip. Appears to be in sinus tachycardia on telemetry. Heart rate also improved significantly, now in low 90s to 110s. Likely improved secondary to blood transfusions. See anemia workup by GI below. Plan - Amiodarone 200 mg twice daily - Eliquis 5 mg BID - Recommend starting metopropol tartrate 12.5mg q8hr if BP permits. Will continue to work towards GDMT management as tolerated. ? Due to patient condition no invasive cardiac procedure will be done at this time ? Strict in and out ? Keep potassium and magnesium above 4 and 2 respectively within normal range. This will also help decrease QTc. #Normocytic anemia #Concern for acute GI bleed from stress induced gastritis Hgb downtrending during admission, note drop from 9.7 on 12/29 to 7.1 on 12/30. S/p 1 unit pRBC on 01/01 for Hgb 7.4. Hgb dropped to 6.9. 01/02/2025: Status post 2 units PRBC. Endoscopy showed esophagitis and gastritis characterized by erythema. GI does not believe so there is a drop in hemoglobin hematocrit was due to upper GI bleed. Colonoscopy 01/04/25: Showed internal hemorrhoids, entire colon is normal. Iron panel 01/05/2025: Iron, TIBC, iron saturation, unsaturated iron binding all low. - Hgb now stable, likely due to resolution of shock, however continues to be anemic. -Will defer anemia management to primary team. ? Continue to monitor hemoglobin #Distributive shock most likely secondary to sepsis, resolved #Sepsis secondary to left leg cellulitis #Toxic shock syndrome #Lower extremity lymphedema S/p IgG immunoglobulin Plan ? Primary team switched from clindamycin and meropenem, completed 10-day course with 2 days of IV CFX. ? Stable off norepinephrine drip and vasopressin for distributive shock, only on PRN. ?Off sedation and extubated #History of seizure disorder Patient on antiseizure meds #History of COPD Supplemental oxygen, BiPAP as needed, DuoNebs #Elevated bilirubin, elevated AST, hypoalbuminemia Secondary to toxic shock syndrome versus septic shock Follow primary team recommendations #Lactic acidosis improving s/p CRRT #YOU #Non-anion gap metabolic acidosis Thank you for your consultation, please do not hesitate to reach out if you have any question or concern Patient plan of care was discussed with the attending physician, Dr. Chapa. Obdulia Evans, PGY-1 Attending Provider Attestation/Addendum I have personally seen and examined the patient separately on the above date of service and discussed the plan of care with the resident. I reviewed the resident Dr. Obdulia Evans consultation progress note and agree with the resident findings and plan in the note above and have also edited the documentation to reflect my findings and plan. Alex Chapa M.D. Interventional Cardiology
[2025-01-09 12:06] LABS: Alanine Aminotransferase 39 U/L (10-49); Albumin, Serum 2.9 gm/dL (3.5-5.0); Albumin/Globulin Ratio 0.9 (1.2-2.2); Alkaline Phosphatase 157 U/L (46-116); Anion Gap 9 (7-16); Aspartate Amino Transferase 41 U/L (0-34); BUN/Creatinine Ratio 42 Ratio (12-20); Bilirubin,Total 0.8 mg/dL (0.3-1.2); Blood Urea Nitrogen 25 mg/dL (9-23); Calcium 8.6 mg/dL (8.3-10.6); Calcium (Corrected) 9.5 mg/dL (8.5-10.1); Carbon Dioxide 29.6 mMol/L (20.0-31.0); Chloride 103 mMol/L (98-107); Creatinine (Component) 0.6 mg/dL (0.6-1.3); Estimated Creatinine Clearance 147.4 mL/min (>60); Globulin 3.4 gm/dL (2.3-3.5); Glucose 158 mg/dL (74-106); Magnesium 1.9 mg/dL (1.6-2.6); Osmolality,Calculated 290 (275-295); Phosphorous 3.9 mg/dL (2.4-5.1); Potassium 4.2 mMol/L (3.4-5.1); Sodium 142 mMol/L (136-145); Total Protein 6.3 gm/dL (5.7-8.2); eGFR > 60 See Note
--- NOTE | 2025-01-09 14:56 | PC.SS ---
rounding note: pending insurance auth to [facility].
--- NOTE | 2025-01-09 18:11 | PD.IMPROG ---
Documentation for date of: 01/09/25 Subjective Subjective Interval history: Hemoglobin hematocrit 8.3 and 27.3 Exam Vital Signs Temp Pulse Resp BP Pulse Ox O2 Del Method O2 Flow Rate 96.9 F 60 24 H 149/71 H 92 L Room Air 2 01/09/25 16:00 01/09/25 16:00 01/09/25 16:00 01/09/25 16:00 01/09/25 16:00 01/09/25 16:00 01/09/25 12:00 FiO2 78 01/08/25 20:01 Objective Labs 01/09/25 08:50 01/09/25 11:17 Labs: Laboratory Results - last 24 hr 01/09/25 01/09/25 08:50 11:17 WBC 8.0 RBC 3.08 L Hgb 8.3 L Hct 27.3 L MCV 89 MCH 26.9 MCHC 30.4 L RDW Std Deviation 57.3 H Plt Count 172 Neut % (Auto) 78 Lymph % (Auto) 11 [place] % (Auto) 11 Eos % (Auto) 0 Baso % (Auto) 0 Neut # (Auto) 6.2 Lymph # (Auto) 0.9 L [place] # (Auto) 0.9 H Eos # (Auto) 0.0 Baso # (Auto) 0.0 Immature Gran # (Auto) 0.06 H Absolute Nucleated RBC 0.00 Immature Gran % 1 H Nucleated RBC % 0 Sodium 142 Potassium 4.2 Chloride 103 Carbon Dioxide 29.6 Anion Gap 9 BUN 25 H Creatinine 0.6 Estim Creat Clear Calc 147.4 eGFR > 60 BUN/Creatinine Ratio 42 H Glucose 158 H Calculated Osmolality 290 Calcium 8.6 Corrected Calcium 9.5 Phosphorus 3.9 Magnesium 1.9 Total Bilirubin 0.8 AST 41 H ALT 39 Alkaline Phosphatase 157 H D Total Protein 6.3 Albumin 2.9 L Globulin 3.4 Albumin/Globulin Ratio 0.9 L Impressions Impression: Anemia blood loss Gastritis Internal hemorrhoids Continue present treatment ABG Interpretation ABG results: 12/22/24 12/22/24 12/23/24 16:49 23:40 13:05 ABG pH 7.39 7.29 L D ABG pCO2 33 37 ABG pO2 60 L 73 L ABG HCO3 20 18 L ABG O2 Saturation 92 94 ABG Base Excess -5 L -8 L VBG pH 7.35 VBG pCO2 37 VBG pO2 27 VBG Base Excess -5 L 12/24/24 12/24/24 12/24/24 08:54 17:12 17:19 ABG pH 7.25 L 7.16 L* ABG pCO2 34 36 ABG pO2 166 H D 127 H D ABG HCO3 15 L 13 L ABG O2 Saturation 100 H 99 H ABG Base Excess -11 L -15 L VBG pH 7.12 L VBG pCO2 42 VBG pO2 44 VBG Base Excess -15 L 12/24/24 12/24/24 12/25/24 19:45 22:40 04:47 ABG pH 7.10 L* 7.21 L D 7.36 D ABG pCO2 50 H D 38 D 37 ABG pO2 249 H D 249 H 191 H D ABG HCO3 15 L 15 L 21 ABG O2 Saturation 100 H 100 H 100 H ABG Base Excess -14 L -12 L -4 L VBG pH VBG pCO2 VBG pO2 VBG Base Excess 12/25/24 12/25/24 12/26/24 15:59 19:55 04:10 ABG pH 7.41 7.41 7.36 ABG pCO2 37 39 37 ABG pO2 128 H D 123 H 99 D ABG HCO3 23 24 21 ABG O2 Saturation 100 H 99 H 98 ABG Base Excess -1 0 -4 L VBG pH VBG pCO2 VBG pO2 VBG Base Excess 12/27/24 12/27/24 12/28/24 04:08 09:45 04:14 ABG pH 7.47 H D 7.42 7.39 ABG pCO2 36 41 45 ABG pO2 82 L 97 114 H ABG HCO3 26 27 H 27 H ABG O2 Saturation 98 99 H 99 H ABG Base Excess 2 2 2 VBG pH VBG pCO2 VBG pO2 VBG Base Excess 12/29/24 12/30/24 12/31/24 04:30 04:50 04:20 ABG pH 7.38 7.37 7.39 ABG pCO2 46 47 45 ABG pO2 109 H 121 H 83 D ABG HCO3 27 H 27 H 27 H ABG O2 Saturation 99 H 99 H 97 ABG Base Excess 1 1 2 VBG pH VBG pCO2 VBG pO2 VBG Base Excess 01/01/25 01/02/25 01/03/25 04:38 04:13 04:52 ABG pH 7.41 7.43 7.47 H ABG pCO2 47 45 43 ABG pO2 100 92 131 H D ABG HCO3 30 H 29 H 31 H ABG O2 Saturation 99 H 99 H 100 H ABG Base Excess 5 H 4 H 7 H VBG pH VBG pCO2 VBG pO2 VBG Base Excess 01/04/25 09:00 ABG pH 7.48 H ABG pCO2 45 ABG pO2 74 L D ABG HCO3 33 H ABG O2 Saturation 94 ABG Base Excess 8 H VBG pH VBG pCO2 VBG pO2 VBG Base Excess Assessment & Plan A&P Narrative # Drop in hemoglobin hematocrit etiology uncertain possible occult GI bleeding Consent will be obtained for possible fiberoptic esophagogastroduodenoscopy with possible biopsy therapeutic intervention under intravenous moderate sedation if negative will consider a fiberoptic colonoscopy After GoLytely prep # Other medical problems include metabolic encephalopathy Diabetes mellitus type 2 Atrial flutter/fibrillation on amiodarone drip Necrosis of the distal toes Mechanically ventilated Thank you very much for the opportunity to participate in the care of this patient Time Spent With Patient Time: Total time spent is greater than 50% in coordination of care (as documented) at patient's floor/unit and/or counseling patient: PROCEDURES: Arterial Line Size (Gauge): 20
[2025-01-09] MEDS: HYDROmorphone INJ 2 MG/ML VIAL 0.5 MG IVP (22:45)
[2025-01-10] VITALS (11 sets, daily range): BP systolic 132–156; BP diastolic 69–83; PULSE 73–79; RESP 14–92; TEMP 35.9–36.8; O2SAT 92–96; BMI 61.3
--- NOTE | 2025-01-10 08:21 | PD.RESPRO ---
Documentation for date of: 01/10/25 Subjective Subjective Interval history: Patient was seen and assessed at bedside. No new complaints, denies chest pain, shortness of breath, palpitations. Blood pressure 132/78 this morning, systolics 120s to 140s. Heart rate in 70s. Consider starting on metoprolol low dose if BP permits. Sinus rhythm on telemetry, no A-fib. Potassium 4.0, magnesium 1.7, replete. Creatinine 0.6. Continue on Eliquis 5 mg twice daily and amiodarone 200 twice daily. Pending insurance approval for discharge to SNF. Exam Vital Signs Temp Pulse Resp BP Pulse Ox O2 Del Method O2 Flow Rate 98.0 F 76 18 132/78 H 92 L Room Air 2 01/10/25 04:00 01/10/25 04:00 01/10/25 04:00 01/10/25 04:00 01/10/25 04:00 01/10/25 04:00 01/09/25 22:58 FiO2 78 01/08/25 20:01 Narrative Exam Physical Exam General: Awake and in no acute distress. Able to answer questions appropriately. Morbidly obese female. Weak voice s/p extubation. HEENT: Normocephalic, atraumatic, mucous membranes moist. Dried blood on philtrum. Heart: Regular rate and rhythm, normal S1 and S2, no murmurs. Lungs: Congestion upper airways. Decreased breath sounds due to large body habitus. Abdomen: Soft, obese, nondistended, nontender, positive bowel sounds. No guarding or rebound tenderness. Neurologic: Alert and oriented x3, no gross neurological deficit, and patient able to move all 4 extremities. Extremities: Severe hyperkeratotic changes bilaterally. Bullae ruptured and healing well, wounds have been dressed. Cellulites appears to be improving, withdrawing from marked borders. Objective Labs 01/10/25 08:16 01/10/25 08:16 Labs: Laboratory Results - last 24 hr 01/09/25 01/09/25 08:50 11:17 WBC 8.0 RBC 3.08 L Hgb 8.3 L Hct 27.3 L MCV 89 MCH 26.9 MCHC 30.4 L RDW Std Deviation 57.3 H Plt Count 172 Neut % (Auto) 78 Lymph % (Auto) 11 [place] % (Auto) 11 Eos % (Auto) 0 Baso % (Auto) 0 Neut # (Auto) 6.2 Lymph # (Auto) 0.9 L [place] # (Auto) 0.9 H Eos # (Auto) 0.0 Baso # (Auto) 0.0 Immature Gran # (Auto) 0.06 H Absolute Nucleated RBC 0.00 Immature Gran % 1 H Nucleated RBC % 0 Sodium 142 Potassium 4.2 Chloride 103 Carbon Dioxide 29.6 Anion Gap 9 BUN 25 H Creatinine 0.6 Estim Creat Clear Calc 147.4 eGFR > 60 BUN/Creatinine Ratio 42 H Glucose 158 H Calculated Osmolality 290 Calcium 8.6 Corrected Calcium 9.5 Phosphorus 3.9 Magnesium 1.9 Total Bilirubin 0.8 AST 41 H ALT 39 Alkaline Phosphatase 157 H D Total Protein 6.3 Albumin 2.9 L Globulin 3.4 Albumin/Globulin Ratio 0.9 L ABG Interpretation ABG results: 12/22/24 12/22/24 12/23/24 16:49 23:40 13:05 ABG pH 7.39 7.29 L D ABG pCO2 33 37 ABG pO2 60 L 73 L ABG HCO3 20 18 L ABG O2 Saturation 92 94 ABG Base Excess -5 L -8 L VBG pH 7.35 VBG pCO2 37 VBG pO2 27 VBG Base Excess -5 L 12/24/24 12/24/24 12/24/24 08:54 17:12 17:19 ABG pH 7.25 L 7.16 L* ABG pCO2 34 36 ABG pO2 166 H D 127 H D ABG HCO3 15 L 13 L ABG O2 Saturation 100 H 99 H ABG Base Excess -11 L -15 L VBG pH 7.12 L VBG pCO2 42 VBG pO2 44 VBG Base Excess -15 L 12/24/24 12/24/24 12/25/24 19:45 22:40 04:47 ABG pH 7.10 L* 7.21 L D 7.36 D ABG pCO2 50 H D 38 D 37 ABG pO2 249 H D 249 H 191 H D ABG HCO3 15 L 15 L 21 ABG O2 Saturation 100 H 100 H 100 H ABG Base Excess -14 L -12 L -4 L VBG pH VBG pCO2 VBG pO2 VBG Base Excess 12/25/24 12/25/24 12/26/24 15:59 19:55 04:10 ABG pH 7.41 7.41 7.36 ABG pCO2 37 39 37 ABG pO2 128 H D 123 H 99 D ABG HCO3 23 24 21 ABG O2 Saturation 100 H 99 H 98 ABG Base Excess -1 0 -4 L VBG pH VBG pCO2 VBG pO2 VBG Base Excess 12/27/24 12/27/24 12/28/24 04:08 09:45 04:14 ABG pH 7.47 H D 7.42 7.39 ABG pCO2 36 41 45 ABG pO2 82 L 97 114 H ABG HCO3 26 27 H 27 H ABG O2 Saturation 98 99 H 99 H ABG Base Excess 2 2 2 VBG pH VBG pCO2 VBG pO2 VBG Base Excess 12/29/24 12/30/24 12/31/24 04:30 04:50 04:20 ABG pH 7.38 7.37 7.39 ABG pCO2 46 47 45 ABG pO2 109 H 121 H 83 D ABG HCO3 27 H 27 H 27 H ABG O2 Saturation 99 H 99 H 97 ABG Base Excess 1 1 2 VBG pH VBG pCO2 VBG pO2 VBG Base Excess 01/01/25 01/02/25 01/03/25 04:38 04:13 04:52 ABG pH 7.41 7.43 7.47 H ABG pCO2 47 45 43 ABG pO2 100 92 131 H D ABG HCO3 30 H 29 H 31 H ABG O2 Saturation 99 H 99 H 100 H ABG Base Excess 5 H 4 H 7 H VBG pH VBG pCO2 VBG pO2 VBG Base Excess 01/04/25 09:00 ABG pH 7.48 H ABG pCO2 45 ABG pO2 74 L D ABG HCO3 33 H ABG O2 Saturation 94 ABG Base Excess 8 H VBG pH VBG pCO2 VBG pO2 VBG Base Excess Quality Measures Quality Measures VTE prophylaxis Assessment & Plan Assessment Current Active Medications: Generic Name Dose Route Start Last Admin Trade Name Freq PRN Reason Stop Dose Admin Albuterol/Ipratropium 3 ml 12/23/24 09:36 Albuterol/Ipratropium (Duoneb) Rt Ginny 3 Ml Nebu INH 01/22/25 07:44 Q8HRRT PRN wheezing Amiodarone HCl 200 mg 01/07/25 09:00 01/09/25 20:36 Amiodarone Hcl 200 Mg Tablet PO 02/06/25 08:59 200 mg BID TRACY Administration Apixaban 5 mg 01/08/25 21:00 01/09/25 20:38 Apixaban 2.5 Mg Tablet PO 02/07/25 20:59 5 mg BID TRACY Administration Artificial Tears 0 drop 01/08/25 14:40 01/08/25 15:25 Artificial Tears 225 Drop/15 Ml Btl BOTH EYES 02/07/25 14:39 1 applicatio PRN PRN Administration TO KEEP EYES MOIST Ascorbic Acid 500 mg 01/07/25 21:00 01/09/25 20:38 Ascorbic Acid 250 Mg Tablet PO 02/06/25 20:59 500 mg BID TRACY Administration Clotrimazole 0 gm 12/23/24 09:00 01/09/25 20:38 Clotrimazole Cr 1% 30 Gm Tube TOP 01/22/25 08:59 1 applicatio BID TRACY Administration Dextrose 25 ml 12/22/24 17:09 12/25/24 23:07 Dextrose 50%-Water Inj 50 Ml Syringe IV 01/21/25 17:08 25 ml Q15MIN PRN Administration BG 50-70 responsive npo pt Dextrose 50 ml 12/22/24 17:09 12/25/24 14:03 Dextrose 50%-Water Inj 50 Ml Syringe IV 01/21/25 17:08 50 ml Q15MIN PRN Administration BG <50 OR BG <70 & pt unresponsive Docusate Sodium 100 mg 01/08/25 21:00 01/09/25 20:36 Docusate Sod Liqd 100 Mg/10 Ml Udc PO 02/07/25 20:59 100 mg BID TRACY Administration Protocol Glucagon 1 mg 12/22/24 17:09 Glucagon Inj 1 Mg Vial IM Q15MIN PRN BG <70, and no IV access Insulin Degludec 25 unit 01/03/25 09:00 01/04/25 08:26 Insulin Degludec 5 Unit/0.05 Ml (Per 5 Units) SC 02/02/25 08:59 Not Given On Hold: 01/04/25 08:42 QDAY [facility] Insulin Human Lispro 0 unit 01/07/25 21:00 01/10/25 07:37 Insulin Lispro (Admelog) 1 Unit/0.01 Ml Unit SC 02/06/25 20:59 Not Given ACHS [facility] Protocol Multivitamins 1 tab 01/08/25 09:00 01/09/25 09:38 Multivitamins Tablet PO 02/07/25 08:59 1 tab QDAY TRACY Administration Neomycin/Polymyxin/Bacitracin 0 gm 01/04/25 22:00 01/10/25 05:24 Mehul/Poly/Ethan (Neosporin) Oint 15 Gm Tube TOP 01/11/25 21:59 1 applicatio TID TRACY Administration Ondansetron HCl 4 mg 12/22/24 17:09 Ondansetron Inj 2 Mg/Ml Inj 2 Ml IVP 01/21/25 17:08 Q6H PRN NAUSEA OR VOMITING Protocol Polyethylene Glycol 17 gm 01/07/25 10:00 01/09/25 09:39 Polyethylene Glycol 17 Gm Packet PO 02/06/25 09:59 17 gm QDAY TRACY Administration Sennosides 1 tab 01/07/25 10:00 01/09/25 09:37 Senna Tablet PO 02/06/25 09:59 1 tab QDAY TRACY Administration Protocol Sodium Hypochlorite 473 ml 01/07/25 21:00 01/09/25 20:38 Sod Hypochlorite 1/4 Str 473 Ml Btl IRRIG 02/06/25 20:59 1 appln BID TRACY Administration Zinc Sulfate 220 mg 01/08/25 09:00 01/09/25 09:37 Zinc Sulfate 220 Mg Capsule PO 02/21/25 08:59 220 mg QDAY TRACY Administration Plan Patient is a 54-year-old female with past medical history of IDDM2, bilateral lower limb lymphedema, lipedema, asthma, epilepsy, morbid obesity, wheelchair-bound for 9 years, was brought to the ED on 12/22/24 for left lower extremity pain and clear cirrhosis fluid oozing. Patient was admitted to the ICU for distributive shock. Cardiology team was consulted because of new onset A-fib with RVR and newly diagnosed CHF. #Newly diagnosed HFrEF (40-45%, 11/2024) #New onset A-fib with RVR likely induced by shock state #Streptococcus pyogenes bacteremia 2/2 LLE cellulitis Patient presented with sepsis secondary to left leg cellulitis, her condition worsened to distributive shock. During her stay she developed A-fib with RVR, with no known hx of afib, we started the patient on amiodarone drip. Even though her body habitus echo was done and showed ejection fraction of 40 to 45%. With normal RV function. BNP was 204 which most likely skewed by patient obesity. Troponin was negative. 12/22/24 Echo showed Over all poor images due to body habitus and technically difficult study. Normal left ventricular size and function.Stage I diastolic dysfunction. Estimated ejection fraction is 40-45%. Normal right ventricular size and function. RVSP 39 mm Hg with RAP 8. Mild pulmonary HTN Trace MR and Mild TR. TDS due to patient morbid and laying on supine view, couldn't move. (patient had open wounds under breast) 12/25/2024 patient was started on CRRT due to worsening lactic acidosis and kidney function, blood culture growing Streptococcus pyogenes. 12/27/2024, Amiodrine drip was stopped by the primary team as the patient converted to sinus rhythm. Patient was having tachycardia heart rate of 113 however it was regular sinus. 12/31/24, EKG showed atrial flutter with RVR with 2:1 AV block. Restarted on amiodarone drip 0.5 mg/min around 1PM however patient continues to be in afib w RVR. 01/01/25, continues to be in atrial flutter with RVR with 2: 1 AV block. QTc noted to be 556 on EKG however taking consideration the QRS is widened, QTc is actually likely around 480 calculated by [facility] formula (HR 135, QT interval 8 boxes). Her BUN is elevated at 42 as well as hemoglobin is dropping down over the last couple of days which is contributing to the RVR. Patient mostly has upper GI bleed mostly secondary to oozing of blood from the possible stress-induced gastritis. Recommended primary team to obtain stool guaiac has been GI consult. Discussed this with the critical care attending 01/02/25 -Still continues to be in flutter with variable block and heart rate is better controlled patient continues to be sedated and intubated. Recommend to continue amiodarone drip at 1 mg per minute until patient is able to take oral medications removed 2.7 L during dialysis yesterday. Hemoglobin is still lower at 6.9 today. Primary team planning to transfer the patient to 2 units of PRBC and GI team has been consulted this morning for further evaluation. 01/04/2025?patient rhythm controlled on amiodarone drip. Appears to be in sinus tachycardia on telemetry. Heart rate also improved significantly, now in low 90s to 110s. Likely improved secondary to blood transfusions. See anemia workup by GI below. Plan - Amiodarone 200 mg twice daily - Eliquis 5 mg BID - Recommend starting metopropol tartrate 12.5mg q8hr if BP permits. Will continue to work towards GDMT management as tolerated. ? Due to patient condition no invasive cardiac procedure will be done at this time ? Strict in and out ? Keep potassium and magnesium above 4 and 2 respectively within normal range. This will also help decrease QTc. #Normocytic anemia #Concern for acute GI bleed from stress induced gastritis Hgb downtrending during admission, note drop from 9.7 on 12/29 to 7.1 on 12/30. S/p 1 unit pRBC on 01/01 for Hgb 7.4. Hgb dropped to 6.9. 01/02/2025: Status post 2 units PRBC. Endoscopy showed esophagitis and gastritis characterized by erythema. GI does not believe so there is a drop in hemoglobin hematocrit was due to upper GI bleed. Colonoscopy 01/04/25: Showed internal hemorrhoids, entire colon is normal. Iron panel 01/05/2025: Iron, TIBC, iron saturation, unsaturated iron binding all low. - Hgb now stable, likely due to resolution of shock, however continues to be anemic. -Will defer anemia management to primary team. ? Continue to monitor hemoglobin #Distributive shock most likely secondary to sepsis, resolved #Sepsis secondary to left leg cellulitis #Toxic shock syndrome #Lower extremity lymphedema S/p IgG immunoglobulin Plan ? Primary team switched from clindamycin and meropenem, completed 10-day course with 2 days of IV CFX. ? Stable off norepinephrine drip and vasopressin for distributive shock, only on PRN. ?Off sedation and extubated #History of seizure disorder Patient on antiseizure meds #History of COPD Supplemental oxygen, BiPAP as needed, DuoNebs #Elevated bilirubin, elevated AST, hypoalbuminemia Secondary to toxic shock syndrome versus septic shock Follow primary team recommendations #Lactic acidosis improving s/p CRRT #YOU #Non-anion gap metabolic acidosis Thank you for your consultation, please do not hesitate to reach out if you have any question or concern Patient plan of care was discussed with the attending physician, Dr. Chapa. Obdulia Evans, PGY-1
[2025-01-10] MEDS: POLYETHYLENE GLYCOL 17 GM PACKET PO (08:38)
[2025-01-10 08:39] LABS: Basophils # (Auto) 0.1 Thou/mm3 (0.0-0.2); Basophils % (Auto) 1 % (0-2.5); Eosinophils # (Auto) 0.0 Thou/mm3 (0.0-0.5); Eosinophils % (Auto) 0 % (0-10); Hematocrit 26.7 % (36.0-46.0); Immature Granulocytes Auto 0.07 Thou/mm3 (0.00-0.00); Lymphocytes # (Auto) 0.9 Thou/mm3 (1.0-4.8); Lymphocytes % (Auto) 11 % (10-50); Mean Corpuscular HGB Conc 30.7 g/dl (31.0-37.0); Mean Corpuscular Hemoglobin 26.8 pg (25.0-35.0); Mean Corpuscular Volume 87 fL (80-100); Monocytes # (Auto) 0.7 Thou/mm3 (0.0-0.8); Monocytes % (Auto) 8 % (0-12); Neutrophils # (Auto) 6.7 Thou/mm3 (1.8-7.7); Neutrophils % (Auto) 80 % (37-80); Nucleated Red Blood Cell # 0.00 Thou/mm3 (0.00-0.00); Nucleated Red Blood Cell % 0 /100 WBC (0); Platelet Count 224 Thou/mm3 (140-440); RDW Standard Deviation 55.6 fL (36.4-46.3); Red Blood Count 3.06 Miln/mm3 (4.00-5.20); White Blood Count 8.5 Thou/mm3 (3.6-11.0)
[2025-01-10] MEDS: ZINC SULFATE 220 MG CAPSULE PO (08:39)
[2025-01-10] MEDS: ASCORBIC ACID 250 MG TABLET 500 MG PO ×2 (08:39→21:05)
[2025-01-10] MEDS: MULTIVITAMINS TABLET 1 TAB PO (08:39)
[2025-01-10] MEDS: AMIODARONE HCL 200 MG TABLET PO ×2 (08:39→21:05)
[2025-01-10] MEDS: APIXABAN 2.5 MG TABLET 5 MG PO ×2 (08:39→21:05)
[2025-01-10] MEDS: DOCUSATE SOD LIQD 100 MG/10 ML UDC PO ×2 (08:40→21:05)
[2025-01-10] MEDS: CLOTRIMAZOLE CR 1% 30 GM TUBE TOP ×2 (08:40→21:09)
[2025-01-10 08:59] LABS: Alanine Aminotransferase 35 U/L (10-49); Albumin, Serum 3.3 gm/dL (3.5-5.0); Albumin/Globulin Ratio 0.8 (1.2-2.2); Alkaline Phosphatase 161 U/L (46-116); Anion Gap 11 (7-16); Aspartate Amino Transferase 22 U/L (0-34); BUN/Creatinine Ratio 32 Ratio (12-20); Bilirubin,Total 1.1 mg/dL (0.3-1.2); Blood Urea Nitrogen 19 mg/dL (9-23); Calcium 9.4 mg/dL (8.3-10.6); Calcium (Corrected) 10.0 mg/dL (8.5-10.1); Carbon Dioxide 28.4 mMol/L (20.0-31.0); Chloride 102 mMol/L (98-107); Creatinine (Component) 0.6 mg/dL (0.6-1.3); Estimated Creatinine Clearance 147.4 mL/min (>60); Globulin 3.9 gm/dL (2.3-3.5); Glucose 121 mg/dL (74-106); Magnesium 1.7 mg/dL (1.6-2.6); Osmolality,Calculated 284 (275-295); Phosphorous 4.1 mg/dL (2.4-5.1); Potassium 4.0 mMol/L (3.4-5.1); Sodium 141 mMol/L (136-145); Total Protein 7.2 gm/dL (5.7-8.2); eGFR > 60 See Note
[2025-01-10 09:03] LABS: Hemoglobin 8.2 g/dL (12.0-16.0)
[2025-01-10] MEDS: SOD HYPOCHLORITE 1/4 STR 473 ML BTL IRRIG ×2 (09:10→21:06)
--- NOTE | 2025-01-10 10:24 | PC.SS ---
Addendum entered by Nani Glass 01/10/25 15:51: SOY provided caregiver, Yves with [employer] and Omar's phone# to [facility]. Original Note: SS received phone call from Omar who states he has spoke to patient's dtr and she is agreeable to [facility]. SOY has sent updated inquiry to [facility] upon his request. SS has informed caregiver, Yves and pt and they are agreeable. PASRR has been faxed to [facility]. Omar is starting insurance authorization.
[2025-01-10] MEDS: Magnesium Sulfate 2 GM Ivpb 2 GM/50 ML BAG IV (14:39)
--- NOTE | 2025-01-10 15:37 | ESPR_ITS ---
<Statement entered by Tima Gutierrez MD - 01/10/25 16:24> Patient seen and assessed in hospital bed at current chronic state with moderate improvement in nutritional intake; moreover, physical therapy ongoing and insurance authorization is pending for LTAC placement. Will discuss involving left lower extremity lesions as documented below with surgery with possible plans for procedures if necessary. Will continue monitoring the patient and expect discharge within the next 24 to 48 hours. I have personally seen and examined the patient. I agree with the resident's assessment and plan as documented below. Tima Gutierrez DO PGY-2 Internal Medicine - GME Documentation for date of: 01/10/25 Subjective Subjective Interval history: No Overnight events. Labs reviewed and patient examined at the bedside. Patient currently pending LTAC disposition Picture of left posterior leg of patient, Juanita Churchill, 54yF. Picture taken on 01/10/2025. Woundcare is concerned for drainage leaking from her left posterior leg. Currently doing conservative management, per surgery recommendations, as additional surgical intervention can potentially lead to another serious complications based on patient's status. Exam Vital Signs Temp Pulse Resp BP Pulse Ox O2 Del Method O2 Flow Rate 97.9 F 76 16 135/78 H 95 Room Air 2 01/10/25 11:53 01/10/25 12:00 01/10/25 11:53 01/10/25 11:53 01/10/25 11:53 01/10/25 11:53 01/09/25 22:58 FiO2 78 01/08/25 20:01 Narrative Exam General: Alert, Morbidly obese, Drowsy Eye: EOMI, normal conjunctiva, no scleral icterus HENT: Normocephalic, dry oral mucosa. Neck: Supple, non-tender, no JVD, no lymphadenopathy Lungs: Labored respirations, symmetric chest rise, Clear to auscultate bilaterally, No wheezing, rhonchi, crackles Heart: Peripheral pulses intact bilaterally, Regular Rate and Rhythm. Abdomen: Soft, non-tender, non-distended, no palpable masses Musculoskeletal: Bilateral lower extremity erythema extending to thighs reaching towards the hip and torso with yellow crusts on top. Necrotic bilateral toes, right fingers, left middle fingers. Discolored lesion around right buttock. Cold distal extremity, Mild oozing of yellow fluid. Skin: Cold distal extremity. Refer to MSK. Psychiatric: Cooperative, Awake and alert, Able to communicate through headshakes and eye movement Neuro: Cranial nerves II-XII grossly intact. Strength 1/5 throughout. Limited sensations in distal extremities. Objective Labs 01/11/25 05:07 01/11/25 05:07 Labs: Laboratory Results - last 24 hr 01/10/25 08:16 WBC 8.5 RBC 3.06 L Hgb 8.2 L Hct 26.7 L MCV 87 MCH 26.8 MCHC 30.7 L RDW Std Deviation 55.6 H Plt Count 224 D Neut % (Auto) 80 Lymph % (Auto) 11 [place] % (Auto) 8 Eos % (Auto) 0 Baso % (Auto) 1 Neut # (Auto) 6.7 Lymph # (Auto) 0.9 L [place] # (Auto) 0.7 Eos # (Auto) 0.0 Baso # (Auto) 0.1 Immature Gran # (Auto) 0.07 H Absolute Nucleated RBC 0.00 Immature Gran % 1 H Nucleated RBC % 0 Sodium 141 Potassium 4.0 Chloride 102 Carbon Dioxide 28.4 Anion Gap 11 BUN 19 Creatinine 0.6 Estim Creat Clear Calc 147.4 eGFR > 60 BUN/Creatinine Ratio 32 H Glucose 121 H Calculated Osmolality 284 Calcium 9.4 Corrected Calcium 10.0 Phosphorus 4.1 Magnesium 1.7 Total Bilirubin 1.1 AST 22 ALT 35 Alkaline Phosphatase 161 H Total Protein 7.2 Albumin 3.3 L Globulin 3.9 H Albumin/Globulin Ratio 0.8 L ABG Interpretation ABG results: 12/22/24 12/22/24 12/23/24 16:49 23:40 13:05 ABG pH 7.39 7.29 L D ABG pCO2 33 37 ABG pO2 60 L 73 L ABG HCO3 20 18 L ABG O2 Saturation 92 94 ABG Base Excess -5 L -8 L VBG pH 7.35 VBG pCO2 37 VBG pO2 27 VBG Base Excess -5 L 12/24/24 12/24/24 12/24/24 08:54 17:12 17:19 ABG pH 7.25 L 7.16 L* ABG pCO2 34 36 ABG pO2 166 H D 127 H D ABG HCO3 15 L 13 L ABG O2 Saturation 100 H 99 H ABG Base Excess -11 L -15 L VBG pH 7.12 L VBG pCO2 42 VBG pO2 44 VBG Base Excess -15 L 12/24/24 12/24/24 12/25/24 19:45 22:40 04:47 ABG pH 7.10 L* 7.21 L D 7.36 D ABG pCO2 50 H D 38 D 37 ABG pO2 249 H D 249 H 191 H D ABG HCO3 15 L 15 L 21 ABG O2 Saturation 100 H 100 H 100 H ABG Base Excess -14 L -12 L -4 L VBG pH VBG pCO2 VBG pO2 VBG Base Excess 12/25/24 12/25/24 12/26/24 15:59 19:55 04:10 ABG pH 7.41 7.41 7.36 ABG pCO2 37 39 37 ABG pO2 128 H D 123 H 99 D ABG HCO3 23 24 21 ABG O2 Saturation 100 H 99 H 98 ABG Base Excess -1 0 -4 L VBG pH VBG pCO2 VBG pO2 VBG Base Excess 12/27/24 12/27/24 12/28/24 04:08 09:45 04:14 ABG pH 7.47 H D 7.42 7.39 ABG pCO2 36 41 45 ABG pO2 82 L 97 114 H ABG HCO3 26 27 H 27 H ABG O2 Saturation 98 99 H 99 H ABG Base Excess 2 2 2 VBG pH VBG pCO2 VBG pO2 VBG Base Excess 12/29/24 12/30/24 12/31/24 04:30 04:50 04:20 ABG pH 7.38 7.37 7.39 ABG pCO2 46 47 45 ABG pO2 109 H 121 H 83 D ABG HCO3 27 H 27 H 27 H ABG O2 Saturation 99 H 99 H 97 ABG Base Excess 1 1 2 VBG pH VBG pCO2 VBG pO2 VBG Base Excess 01/01/25 01/02/25 01/03/25 04:38 04:13 04:52 ABG pH 7.41 7.43 7.47 H ABG pCO2 47 45 43 ABG pO2 100 92 131 H D ABG HCO3 30 H 29 H 31 H ABG O2 Saturation 99 H 99 H 100 H ABG Base Excess 5 H 4 H 7 H VBG pH VBG pCO2 VBG pO2 VBG Base Excess 01/04/25 09:00 ABG pH 7.48 H ABG pCO2 45 ABG pO2 74 L D ABG HCO3 33 H ABG O2 Saturation 94 ABG Base Excess 8 H VBG pH VBG pCO2 VBG pO2 VBG Base Excess Quality Measures Quality Measures VTE prophylaxis Assessment & Plan Assessment Current Active Medications: Generic Name Dose Route Start Last Admin Trade Name Freq PRN Reason Stop Dose Admin Albuterol/Ipratropium 3 ml 12/23/24 09:36 Albuterol/Ipratropium (Duoneb) Rt Ginny 3 Ml Nebu INH 01/22/25 07:44 Q8HRRT PRN wheezing Amiodarone HCl 200 mg 01/07/25 09:00 01/10/25 08:39 Amiodarone Hcl 200 Mg Tablet PO 02/06/25 08:59 200 mg BID TRACY Administration Apixaban 5 mg 01/08/25 21:00 01/10/25 08:39 Apixaban 2.5 Mg Tablet PO 02/07/25 20:59 5 mg BID TRACY Administration Artificial Tears 0 drop 01/08/25 14:40 01/08/25 15:25 Artificial Tears 225 Drop/15 Ml Btl BOTH EYES 02/07/25 14:39 1 applicatio PRN PRN Administration TO KEEP EYES MOIST Ascorbic Acid 500 mg 01/07/25 21:00 01/10/25 08:39 Ascorbic Acid 250 Mg Tablet PO 02/06/25 20:59 500 mg BID TRACY Administration Clotrimazole 0 gm 12/23/24 09:00 01/10/25 08:40 Clotrimazole Cr 1% 30 Gm Tube TOP 01/22/25 08:59 1 applicatio BID TRACY Administration Dextrose 25 ml 12/22/24 17:09 12/25/24 23:07 Dextrose 50%-Water Inj 50 Ml Syringe IV 01/21/25 17:08 25 ml Q15MIN PRN Administration BG 50-70 responsive npo pt Dextrose 50 ml 12/22/24 17:09 12/25/24 14:03 Dextrose 50%-Water Inj 50 Ml Syringe IV 01/21/25 17:08 50 ml Q15MIN PRN Administration BG <50 OR BG <70 & pt unresponsive Docusate Sodium 100 mg 01/08/25 21:00 01/10/25 08:40 Docusate Sod Liqd 100 Mg/10 Ml Udc PO 02/07/25 20:59 100 mg BID TRACY Administration Protocol Glucagon 1 mg 12/22/24 17:09 Glucagon Inj 1 Mg Vial IM Q15MIN PRN BG <70, and no IV access Magnesium Sulfate 2 gm in 50 mls @ 25 mls/hr 01/10/25 13:47 01/10/25 14:39 Magnesium Sulfate Ivpb IV 01/10/25 15:46 25 mls/hr X1 ONE Administration Insulin Degludec 25 unit 01/03/25 09:00 01/04/25 08:26 Insulin Degludec 5 Unit/0.05 Ml (Per 5 Units) SC 02/02/25 08:59 Not Given On Hold: 01/04/25 08:42 QDAY TRACY Insulin Human Lispro 0 unit 01/07/25 21:00 01/10/25 11:44 Insulin Lispro (Admelog) 1 Unit/0.01 Ml Unit SC 02/06/25 20:59 Not Given ACHS [facility] Protocol Multivitamins 1 tab 01/08/25 09:00 01/10/25 08:39 Multivitamins Tablet PO 02/07/25 08:59 1 tab QDAY TRACY Administration Neomycin/Polymyxin/Bacitracin 0 gm 01/04/25 22:00 01/10/25 14:44 Mehul/Poly/Ethan (Neosporin) Oint 15 Gm Tube TOP 01/11/25 21:59 1 applicatio TID TRACY Administration Ondansetron HCl 4 mg 12/22/24 17:09 Ondansetron Inj 2 Mg/Ml Inj 2 Ml IVP 01/21/25 17:08 Q6H PRN NAUSEA OR VOMITING Protocol Polyethylene Glycol 17 gm 01/07/25 10:00 01/10/25 08:38 Polyethylene Glycol 17 Gm Packet PO 02/06/25 09:59 17 gm QDAY TRACY Administration Sennosides 1 tab 01/07/25 10:00 01/10/25 08:40 Senna Tablet PO 02/06/25 09:59 1 tab QDAY TRACY Administration Protocol Sodium Hypochlorite 473 ml 01/07/25 21:00 01/10/25 09:10 Sod Hypochlorite 1/4 Str 473 Ml Btl IRRIG 02/06/25 20:59 1 appln BID TRACY Administration Zinc Sulfate 220 mg 01/08/25 09:00 01/10/25 08:39 Zinc Sulfate 220 Mg Capsule PO 02/21/25 08:59 220 mg QDAY TRACY Administration Plan 54-year-old female with past medical history of prior IA?, Insulin-dependent type 2 diabetes, lymphedema, lipedema, asthma, epilepsy, morbid obesity, nonambulatory for 9 years, wheelchair-bound presenting to the ED on 12/22 with left lower extremity pain and oozing. Admitted to ICU for management of cellulitis and shock. Patient has been stabilized and has been downgraded to tele on 01/05 #Cellulitis 2/2 Streptococcus pyogenes bacteremia ? Resolving #Distributive Shock-Resolving #Lactic acidosis-Resolving #2/2 Toxic Shock Syndrome #Leukocytosis - Resolved #Coagulopathy 2/2 toxic shock syndrome - Resolved -On admission, lactic acid: 7.6, peaked to 10.0 (at 12/26), now down trending to 2.5 -On admission, WBC: 5.8, peaked to 52.9 (at 12/31), now down trending to 7.6 -Blood Cx (12/22/2024): Youssef-sensitive Streptococcus pyogenes (Group A Streptococcus) x2/2 -Likely main etiology of sepsis with toxic shock syndrome. -Timeline of antibiotic regimen given in ICU detailed below: 1. IV vancomycin dosed by pharmacy [12/22-12/25, discontinued due to MRSA(-)] 2. IV clindamycin 600 mg q8HR [12/22-12/30, dc'd due to concern for Drug induced Thrombocytopenia and no longer needed for TSS] 3. IV cefepime 2 gm q12HR [12/22-12/24, discontinued after TSS became favored diagnosis] 4. IV meropenem 1000 mg q8HR [12/24-12/30, dc'd due to possible Drug induced Thrombocytopenia] 5. IV Ceftriaxone 2 g qday [12/30 - 01/01 for total ABX course of 10 days] -Blood Cx (12/28): Coag Negative Staph Plan: -Continue Would care management -Bilateral Above Knee Amputation (AKA) has been discussed, but currently undecided. - will need to follow up outpatient with Surgery -pending insurance auth for LTAC. #Atrial fibrillation w/ RVR #Acute systolic and diastolic dysfunction w/ mildly reduced EF [40-45%] -9/24 echocardiogram showed reduced EF of 45% -Episodes of A fib w/ RVR during ICU. CHADS-VASc score 3 (female, CHF, hypertension) Plan: -Patient on Amiodarone PO -per EGD and cololoscopy note -no active bleeding -started Apixaban 5 BID #YOU 2/2 Distributive Shockresolved #ATN -On admission, BUN:14, Cr: 1.8 (baseline 0.7), eGFR:33 -Likely combination of pre-renal and intrinsic cause of YOU due to distributive shock and infection. -Hemodialysis sessions: 12/24, 12/26, 12/27, 12/29, 12/31, 01/01 -Urine Output: 1.3L Plan: -Given stability, hemodialysis unlikely -Strict I's & O's -Avoid nephrotoxins -Renally dose medications #GI bleed R/O #Anemia, Microcytic -Patient has Chronic Anemia with trending down hemoglobin. -Throughout stay in ICU, risk of stress ulcers with thrombocytopenia, coagulopathy, intubation, critical illness. -Received total 3 Blood transfusions -EGD 01/02 showed gastritis and no bleeding -Colonoscopy 01/04 showed internal hemorrhoids with normal colon -Current Hgb: 9.0 Plan: -Continue to monitor Hgb and sign of bleeding #Necrotic distal digits -Necrosis of distal right fingers, distal left middle finger, and distal right toes. -Likely due to prolonged usage of high dose pressors during events of shock. -Bilateral upper extremity duplex US (01/03) showed no occlusive arterial disease. Plan: -Per general surgery, continue to monitor. #Acute respiratory failure with Hypoxia -Resolved #2/2 Severe Metabolic acidosis - Resolved -Patient discontinued intubation on 01/04 #Thrombocytopenia- Resolved #Hyperglycemia- Resolved #Constipation- Resolved Disposition: Tele Diet: Consistent Carbohydrate GI prophylaxis: IV protonix DVT prophylaxis:Eliquis 5 BID Code: DNR Assessment and plan discussed with my attending physician Dr. Mahoney and Dr. Gutierrez (PGY-2) Dr. Avelar (PGY-1) - Internal medicine resident Attending Provider Attestation/Addendum I reviewed labs, imaging, EKG, home medications and prior available records. Face to face evaluation was performed by me. I have personally examined the patient and discussed assessment and plan with the IM team. I reviewed the resident note and agree with the plan with exceptions as below. Left lower extremity cellulitis, secondary to group A streptococcus infection Atrial fibrillation with controlled ventricular rhythm YOU, resolved Acute hypoxic respiratory failure, resolved Finished a course of antibiotics Will touch base with surgery again given the worsening wounds Continue amiodarone and Eliquis Pending insurance authorization for LTAC
[2025-01-10] MEDS: LACTULOSE SYRUP 20 GM/30 ML UDC PO (17:22)
--- NOTE | 2025-01-10 19:15 | PD.IMPROG ---
Documentation for date of: 01/10/25 Subjective Subjective Interval history: Hemoglobin hematocrit 8.2 and 26.7 Exam Vital Signs Temp Pulse Resp BP Pulse Ox O2 Del Method O2 Flow Rate 98.2 F 75 19 145/75 H 95 Room Air 2 01/10/25 16:00 01/10/25 16:00 01/10/25 16:00 01/10/25 16:00 01/10/25 16:00 01/10/25 16:00 01/09/25 22:58 FiO2 78 01/08/25 20:01 Objective Labs 01/10/25 08:16 01/10/25 08:16 Labs: Laboratory Results - last 24 hr 01/10/25 08:16 WBC 8.5 RBC 3.06 L Hgb 8.2 L Hct 26.7 L MCV 87 MCH 26.8 MCHC 30.7 L RDW Std Deviation 55.6 H Plt Count 224 D Neut % (Auto) 80 Lymph % (Auto) 11 [place] % (Auto) 8 Eos % (Auto) 0 Baso % (Auto) 1 Neut # (Auto) 6.7 Lymph # (Auto) 0.9 L [place] # (Auto) 0.7 Eos # (Auto) 0.0 Baso # (Auto) 0.1 Immature Gran # (Auto) 0.07 H Absolute Nucleated RBC 0.00 Immature Gran % 1 H Nucleated RBC % 0 Sodium 141 Potassium 4.0 Chloride 102 Carbon Dioxide 28.4 Anion Gap 11 BUN 19 Creatinine 0.6 Estim Creat Clear Calc 147.4 eGFR > 60 BUN/Creatinine Ratio 32 H Glucose 121 H Calculated Osmolality 284 Calcium 9.4 Corrected Calcium 10.0 Phosphorus 4.1 Magnesium 1.7 Total Bilirubin 1.1 AST 22 ALT 35 Alkaline Phosphatase 161 H Total Protein 7.2 Albumin 3.3 L Globulin 3.9 H Albumin/Globulin Ratio 0.8 L Impressions Impression: Gastritis Esophagitis Internal hemorrhoids Continue current management ABG Interpretation ABG results: 12/22/24 12/22/24 12/23/24 16:49 23:40 13:05 ABG pH 7.39 7.29 L D ABG pCO2 33 37 ABG pO2 60 L 73 L ABG HCO3 20 18 L ABG O2 Saturation 92 94 ABG Base Excess -5 L -8 L VBG pH 7.35 VBG pCO2 37 VBG pO2 27 VBG Base Excess -5 L 12/24/24 12/24/24 12/24/24 08:54 17:12 17:19 ABG pH 7.25 L 7.16 L* ABG pCO2 34 36 ABG pO2 166 H D 127 H D ABG HCO3 15 L 13 L ABG O2 Saturation 100 H 99 H ABG Base Excess -11 L -15 L VBG pH 7.12 L VBG pCO2 42 VBG pO2 44 VBG Base Excess -15 L 12/24/24 12/24/24 12/25/24 19:45 22:40 04:47 ABG pH 7.10 L* 7.21 L D 7.36 D ABG pCO2 50 H D 38 D 37 ABG pO2 249 H D 249 H 191 H D ABG HCO3 15 L 15 L 21 ABG O2 Saturation 100 H 100 H 100 H ABG Base Excess -14 L -12 L -4 L VBG pH VBG pCO2 VBG pO2 VBG Base Excess 12/25/24 12/25/24 12/26/24 15:59 19:55 04:10 ABG pH 7.41 7.41 7.36 ABG pCO2 37 39 37 ABG pO2 128 H D 123 H 99 D ABG HCO3 23 24 21 ABG O2 Saturation 100 H 99 H 98 ABG Base Excess -1 0 -4 L VBG pH VBG pCO2 VBG pO2 VBG Base Excess 12/27/24 12/27/24 12/28/24 04:08 09:45 04:14 ABG pH 7.47 H D 7.42 7.39 ABG pCO2 36 41 45 ABG pO2 82 L 97 114 H ABG HCO3 26 27 H 27 H ABG O2 Saturation 98 99 H 99 H ABG Base Excess 2 2 2 VBG pH VBG pCO2 VBG pO2 VBG Base Excess 12/29/24 12/30/24 12/31/24 04:30 04:50 04:20 ABG pH 7.38 7.37 7.39 ABG pCO2 46 47 45 ABG pO2 109 H 121 H 83 D ABG HCO3 27 H 27 H 27 H ABG O2 Saturation 99 H 99 H 97 ABG Base Excess 1 1 2 VBG pH VBG pCO2 VBG pO2 VBG Base Excess 01/01/25 01/02/25 01/03/25 04:38 04:13 04:52 ABG pH 7.41 7.43 7.47 H ABG pCO2 47 45 43 ABG pO2 100 92 131 H D ABG HCO3 30 H 29 H 31 H ABG O2 Saturation 99 H 99 H 100 H ABG Base Excess 5 H 4 H 7 H VBG pH VBG pCO2 VBG pO2 VBG Base Excess 01/04/25 09:00 ABG pH 7.48 H ABG pCO2 45 ABG pO2 74 L D ABG HCO3 33 H ABG O2 Saturation 94 ABG Base Excess 8 H VBG pH VBG pCO2 VBG pO2 VBG Base Excess Assessment & Plan A&P Narrative # Drop in hemoglobin hematocrit etiology uncertain possible occult GI bleeding Consent will be obtained for possible fiberoptic esophagogastroduodenoscopy with possible biopsy therapeutic intervention under intravenous moderate sedation if negative will consider a fiberoptic colonoscopy After GoLytely prep # Other medical problems include metabolic encephalopathy Diabetes mellitus type 2 Atrial flutter/fibrillation on amiodarone drip Necrosis of the distal toes Mechanically ventilated Thank you very much for the opportunity to participate in the care of this patient Time Spent With Patient Time: Total time spent is greater than 50% in coordination of care (as documented) at patient's floor/unit and/or counseling patient: PROCEDURES: Arterial Line Size (Gauge): 20
[2025-01-11] VITALS (10 sets, daily range): BP systolic 131–143; BP diastolic 71–94; PULSE 68–82; RESP 18–85; TEMP 35.9–36.6; O2SAT 85–99; BMI 61.0
[2025-01-11 05:44] LABS: Basophils # (Auto) 0.0 Thou/mm3 (0.0-0.2); Basophils % (Auto) 0 % (0-2.5); Eosinophils # (Auto) 0.0 Thou/mm3 (0.0-0.5); Eosinophils % (Auto) 0 % (0-10); Hematocrit 25.8 % (36.0-46.0); Immature Granulocytes Auto 0.04 Thou/mm3 (0.00-0.00); Lymphocytes # (Auto) 0.8 Thou/mm3 (1.0-4.8); Lymphocytes % (Auto) 11 % (10-50); Mean Corpuscular HGB Conc 30.6 g/dl (31.0-37.0); Mean Corpuscular Hemoglobin 26.6 pg (25.0-35.0); Mean Corpuscular Volume 87 fL (80-100); Monocytes # (Auto) 0.6 Thou/mm3 (0.0-0.8); Monocytes % (Auto) 9 % (0-12); Neutrophils # (Auto) 5.3 Thou/mm3 (1.8-7.7); Neutrophils % (Auto) 79 % (37-80); Nucleated Red Blood Cell # 0.00 Thou/mm3 (0.00-0.00); Nucleated Red Blood Cell % 0 /100 WBC (0); Platelet Count 238 Thou/mm3 (140-440); RDW Standard Deviation 56.8 fL (36.4-46.3); Red Blood Count 2.97 Miln/mm3 (4.00-5.20); White Blood Count 6.7 Thou/mm3 (3.6-11.0)
[2025-01-11 05:58] LABS: Hemoglobin 7.9 g/dL (12.0-16.0)
[2025-01-11 06:05] LABS: Alanine Aminotransferase 32 U/L (10-49); Albumin, Serum 3.0 gm/dL (3.5-5.0); Albumin/Globulin Ratio 0.9 (1.2-2.2); Alkaline Phosphatase 148 U/L (46-116); Anion Gap 10 (7-16); Aspartate Amino Transferase 18 U/L (0-34); BUN/Creatinine Ratio 36 Ratio (12-20); Bilirubin,Total 1.1 mg/dL (0.3-1.2); Blood Urea Nitrogen 18 mg/dL (9-23); Calcium 8.8 mg/dL (8.3-10.6); Calcium (Corrected) 9.6 mg/dL (8.5-10.1); Carbon Dioxide 28.8 mMol/L (20.0-31.0); Chloride 104 mMol/L (98-107); Creatinine (Component) 0.5 mg/dL (0.6-1.3); Estimated Creatinine Clearance 176.3 mL/min (>60); Globulin 3.5 gm/dL (2.3-3.5); Glucose 119 mg/dL (74-106); Magnesium 1.8 mg/dL (1.6-2.6); Osmolality,Calculated 287 (275-295); Phosphorous 4.0 mg/dL (2.4-5.1); Potassium 3.5 mMol/L (3.4-5.1); Sodium 143 mMol/L (136-145); Total Protein 6.5 gm/dL (5.7-8.2); eGFR > 60 See Note
[2025-01-11] MEDS: ASCORBIC ACID 250 MG TABLET 500 MG PO ×2 (08:51→21:59)
[2025-01-11] MEDS: ZINC SULFATE 220 MG CAPSULE PO (08:51)
[2025-01-11] MEDS: POTASSIUM CHLORIDE 10% 20 MEQ/15 ML UDC 40 MEQ PO (08:51)
[2025-01-11] MEDS: POLYETHYLENE GLYCOL 17 GM PACKET PO (08:51)
[2025-01-11] MEDS: AMIODARONE HCL 200 MG TABLET PO ×2 (08:52→21:59)
[2025-01-11] MEDS: MULTIVITAMINS TABLET 1 TAB PO (08:52)
[2025-01-11] MEDS: APIXABAN 2.5 MG TABLET 5 MG PO ×2 (08:52→22:00)
[2025-01-11] MEDS: DOCUSATE SOD LIQD 100 MG/10 ML UDC PO ×2 (08:52→21:59)
[2025-01-11] MEDS: SOD HYPOCHLORITE 1/4 STR 473 ML BTL IRRIG ×2 (08:53→22:00)
[2025-01-11] MEDS: CLOTRIMAZOLE CR 1% 30 GM TUBE TOP ×2 (08:53→22:03)
--- NOTE | 2025-01-11 09:22 | PC.NURSE ---
Pt has discharge orders in place. Insurance authorization pending.
--- NOTE | 2025-01-11 09:49 | PC.SS ---
Addendum entered by Nani Glass 01/11/25 15:18: SS has spoken to Ruth from patient's health insurance who is aware SS has faxed inquiry 2 X at 9:49am and 1:49pm for insurance authorization to [facility]. SS has also sent inquiry to Omar at [facility] and he will also send inquiry to patient's health insurance for insurance authorization. Per Ruth, they are having difficulty receiving faxes and she will follow up with her staff. Original Note: SS poke to Ruth a risk control field representative from patient's health insurance, [facility] who is aware pt has been accepted to [facility]. SS has faxed d/c orders and inquiry to Ruth at [facility] upon her request. Per Ruth, their medical facilities section director will review inquire and if approved inquire will then be processed by their coordinator. SS has provided Omar, [facility]'s phone # and fax# to patient's health insurance. Insurance authorization is pending.
--- NOTE | 2025-01-11 10:10 | ESDS_ITS ---
Planned Discharge Date 01/11/25 DS: Providers Provider Date of admission: 12/22/24 17:09 Primary care physician: Lee Singer MD Admitting Provider: Alf Villaseñor DO Attending Provider on Admission: Luciano Mahoney MD Consults: 12/22/24 16:04 Referral Wound Care Stat Comment: 12/22/24 17:13 Referral OP Wound Healing Dept Routine Comment: 12/23/24 01:13 [facility] Referral - Nutrition Routine Comment: Positive screening for nutrition needs. 12/23/24 15:00 Referral Nutritional Services Routine Comment: Wounds, morbid obesity 12/23/24 19:48 Consult to Cardiology Stat Comment: Consulting Provider: Alex Chapa Instructions: SVT 12/25/24 10:22 Consult to Nephrology Urgent Comment: Consulting Provider: Maykel Stiles 12/25/24 11:01 Referral Registered Dietitian Routine Comment: For tube feeds please 12/26/24 10:24 Referral - Splicing Machine Operator Stat Service Needed for Transfer: General Surgery Addl Comments:: For surgical Evaluation +/- Debridement of Lower limbs. Patient has toxic shock syndrome 12/26/24 13:36 Consult to General Surgery Routine Comment: Consulting Provider: Jennifer Hines 12/27/24 13:24 Referral Nutritional Services Routine Comment: Deep tissue injury to upper back Referral Wound Care Routine Comment: deep tissue injury to medial upper back 01/02/25 11:12 Consult to Gastroenterology Urgent Comment: SUspected GI bleed Consulting Provider: Brayan Johnson 01/04/25 12:18 Referral Speech Therapy Stat Comment: 01/06/25 13:28 Referral Physical Therapy Routine Comment: Physician Instructions: Attending Provider on DC: Jaylen Avelar DO Discharging Provider: Jaylen Avelar DO DS: Diagnosis Problem List Completed Was Problem List Reviewed/Reconciled?: Yes Hospital Course Hospital Course Hospital course: Summary: 54-year-old female with past medical history of insulin-dependent DM type II, lymphedema, asthma, morbidly obese, history of epilepsy, nonambulatory for 9 years, wheelchair-bound was initially admitted to the medical floor for sepsis secondary to cellulitis of the left lower extremity. The patient was clinically deteriorated with distributive shock in the setting of sepsis. Patient was upgraded to ICU. Was intubated with mechanical ventilation. Received multiple IV antibiotics, was on pressors, received multiple extended dialysis sessions, and to PRBC transfusion. During ICU stay, patient has clinically improved and downgraded to telemetry without antibiotics. Patient continued to improve and has agreed to be discharged to rehab facility for 24-hour care. ED Course: In the ED, patient presented mildly hypotensive 92/56, heart rate of 92, respiratory rate of 18, afebrile satting 96 on room air. Pertinent lab findings include WBC of 5.8, potassium 3.1, creatinine 1.8, eGFR of 33, lactic acid initially 7.1 uptrending to 8.0, T. bili of 2.2, AST 21, ALT 14, BNP of 385, Pro-Umberto of 87. Urinalysis shows signs of urinary tract infection. Venous Doppler study is negative for DVT, chest x-ray does not show any active disease and tibia/fibula x-ray shows no acute fracture. Hospital Course: Upon admission, due to her status of immobilization with BMI of 65, Patient had chronic lymphedema and bruising/erythema of the left leg from a traumatic event 3 weeks ago before admission, which was likely to be the source of infection for cellulitis.? Patient started on IV antibiotics with IV cefepime and vancomycin as well as IVF.? On 12/23/2024, patient was upgraded to ICU due to hypotension 87/54, tachycardic HR 114, and low O2 saturation 92% on room air with shortness of breath,back pain and poor urine output.? Patient was given IV fluid bolus 2 L and on nasal cannula 5L because patient did not want a BiPAP.? Patient's lactic acidosis and hypotension did not improve after 5 L of IV fluid.? Given the lack of fluid responsiveness, the presenting symptom at the time was likely to be distributive shock secondary to sepsis/bacteremia from her cellulitis.? Right IJ vascular catheter has been placed for norepinephrine infusion. Patient also started on IVIG and prothrombin complex concentrate for toxic shock syndrome.? The next day on 12/24, EKG showed A-fib with RVR with a rate of 141 so patient was started on amiodarone infusion.? Patient was tachypneic and had labored breathing so she was put on BiPAP.? Blood culture grew Streptococcus pyogenes which confirmed that she is undergoing sepsis with toxic shock syndrome likely have ?originated from cellulitis.? Patient was keep receiving IVIG to dampen the cytokine storm from toxic shock syndrome.? Changed her antibiotics from IV cefepime to IV meropenem.? At this time patient was still taking vancomycin, meropenem and clindamycin.? Patient continued to get norepinephrine and IVF, however she was not fully responsive and continued to have lactic acidosis.? On 12/24, patient received multiple extended dialysis sessions for worsening lactic acidosis and electrolyte imbalance. On 12/25, patient was intubated.? Her cellulitis was worsening, expanding, and showed necrotic/black appearance with ulceration, along with black lesions on her distal left foot.? MRSA screen was negative, so vancomycin was stopped and continued ?IV meropenem and clindamycin, and IVIG for toxic shock syndrome as well as pressors. The next day on 12/26, patient still continued to produce minimal urine output with worsening lactic acidosis, extending of erythema from left leg to hip and bilateral toes, and A-fib with RVR on EKG.? Patient continued to get extended dialysis sessions. On 12/29, patient's WBC was an uptrend to 54 with thrombocytopenia, platelet count of 17.? On 12/30, patient was still intubated and mechanically ventilated. However blood pressure was improving so she was put on lower dose Levophed.? Patient was able to move her limbs and shake head for communication. WBC was in the downtrend. Discontinued clindamycin and meropenum and started on ceftriaxone IV. On 12/31, patient's blood pressure was on the uptrend so she was given diltiazem 10 mg IV x 1 and metoprolol 2 g IV x 1.? On 01/02, patient was off of sedation for 24 hours but was reportedly non-responsive (GCS 6T).? Patient had a significant decrease in hemoglobin with 6.9 and was given 2 units of PRBC transfusion.? However the patient's urine output was improving with 60 to 75 cc/hr and her thrombocytopenia was also improving with platelet level of 86.? Upper endoscopy was done, but was unable to find the source of drop in hemoglobin level.? On 01/03, patient was able to open her eyes and communicate through head shaking (GCS 11T).? Patient's urine output continued to increased with 2 L in 24 hours.? Patient continued to have bowel movement.? On 01/04, Patient was still intubated but off of sedation and now more alert with more facial expressions and spontaneous movement.? She was also saturating well on pressure support.? Continued to make a good urine 1.7 L for last 24 hours. Colonoscopy was done and found internal hemorrhoids but the entire examined colon was normal. On 01/05, patient has been downgraded from ICU to telemetry and her vitals were stable.? Patient no longer had leukocytosis, hemoglobin stabilized with 9.0 and thrombocytopenia resolved with platelet 141.? Lactic acidosis was stable at 2.5 and has been downtrending trending from its peak of 10.0? (on 12/26).? Patient's renal function was also improving as well as her bilateral lower extremity erythema.? Above-knee amputation has been discussed with general surgery but decided not to do any surgical intervention because of her high risk of developing additional medical complications.? Patient was extubated and instead was put on OxyMask.? She was no longer on any antibiotics.? Patient was still on amiodarone drip.? She was producing good amount of urine with bowel movement.? On 01/06, patient is now able to make sounds but still was not able to talk because most likely due to prolonged intubation at ICU stay.? On 01/09, patient was able to talk, more alert and awake and was able to engage in short discussion.? Patient was on amiodarone 200 mg p.o. twice daily and Eliquis 5 mg p.o. twice daily.? Patient has agreed to be discharged to rehab facility for 24- hour care Instructions: Please take amiodarone 200 mg tablet twice a day for atrial fibrillation Stop using insulin as your blood sugars are well controlled and your last A1c is 5.6 Continue all other home medications as prescribed Follow-up with public speaking teacher Dr. Chapa to start GDMT for Heart Failure - ask if you should start anticoagulation which was held due to bleeding Follow-up with general surgeon Dr. Hines to see if any procedure can be done for your legs Please follow-up with PCP within 1 week of discharge or follow-up at the [facility] [address] [place] [address] Continue physical therapy and wound care at the SNF If your symptoms worsen or if you develop new chest pain, shortness of breath, severe leg pain or bleeding - please come back to the ED immediately. Wound care: 1) IV infiltrate site to right forearm: open to air and monitor. If weeping- cover with allyven dressing daily and PRN for falling off or soiling 2) Deep tissue injury to medial upper back: cleanse with wound cleanser, pat dry, apply skin prep and cover with allyven dressing daily. 3) BLE lymphedema with soft tissue infection including LLE trauma: cleanse well with 1/4 st dakins solution and pat dry well. Cover open areas with xeroform or adaptic gauze. Layer with abd pads. Wrap with bias roll or chip wrap. Change BID and PRN for saturating. 4)Upper lip friction: apply warm wet wash cloth for approx 3-5 minutes, gently removing crustings without causing site to bleed than apply bacitracin ointment TID and PRN #Cellulitis 2/2 Streptococcus pyogenes bacteremia ? Resolving #Distributive Shock-Resolving #Lactic acidosis-Resolving #2/2 Toxic Shock Syndrome #Leukocytosis - Resolved #Coagulopathy 2/2 toxic shock syndrome - Resolved #Atrial fibrillation w/ RVR #Acute systolic and diastolic dysfunction w/ mildly reduced EF [40-45%] #YOU 2/2 Distributive Shockresolved #ATN #GI bleed R/O #Anemia, Microcytic #Necrotic distal digits #Acute respiratory failure with Hypoxia -Resolved #2/2 Severe Metabolic acidosis - Resolved #Thrombocytopenia- Resolved #Hyperglycemia- Resolved #Constipation- Resolved Assessment and plan discussed with my attending physician Dr. Denzel Avelar (PGY-1) - Internal medicine resident Status at Discharge Overall status at discharge: patient is progressing back to baseline Time Spent with Patient Time attestation: Total time spent providing and/or coordinating discharge services: Time spent: Greater than 30 minutes Exam Vital Signs Temp Pulse Resp BP Pulse Ox O2 Del Method O2 Flow Rate 96.9 F 75 22 H 131/75 H 93 L Oxy Mask 5 01/11/25 08:00 01/11/25 08:52 01/11/25 08:09 01/11/25 08:52 01/11/25 08:09 01/11/25 08:00 01/11/25 08:00 FiO2 78 01/08/25 20:01 Narrative Exam General: Alert, Morbidly obese, Drowsy Eye: EOMI, normal conjunctiva, no scleral icterus HENT: Normocephalic, dry oral mucosa. Dark red crust over philtrum region. Neck: Supple, non-tender, no JVD, no lymphadenopathy Lungs: Labored respirations, symmetric chest rise, Clear to auscultate bilaterally, No wheezing, rhonchi, crackles Heart: Peripheral pulses intact bilaterally, Regular Rate and Rhythm. Abdomen: Soft, non-tender, non-distended, no palpable masses Musculoskeletal: Bilateral lower extremity erythema extending to thighs reaching towards the hip and torso with yellow crusts on top. Necrotic bilateral toes, right fingers, left middle fingers. Discolored lesion around right buttock. Cold distal extremity, Mild oozing of yellow fluid. Skin: Cold distal extremity. Refer to [facility]. Psychiatric: Cooperative, Awake and alert, Able to communicate verbally. Neuro: Cranial nerves II-XII grossly intact. Strength 1/5 throughout. Limited sensations in distal extremities. Discharge Plan Plan Patient Disposition: Xfer Skilled Nsg Fac (SNF) Care Plan Goals: Please take amiodarone 200 mg tablet twice a day for atrial fibrillation Stop using insulin as your blood sugars are well controlled and your last A1c is 5.6 Continue all other home medications as prescribed Follow-up with public speaking teacher Dr. Chapa to start GDMT for Heart Failure - ask if you should start anticoagulation which was held due to bleeding Follow-up with general surgeon Dr. Hines to see if any procedure can be done for your legs Please follow-up with PCP within 1 week of discharge or follow-up at the [facility] [address] [place] [address] Continue physical therapy and wound care at the SNF If your symptoms worsen or if you develop new chest pain, shortness of breath, severe leg pain or bleeding - please come back to the ED immediately. Wound care: 1) IV infiltrate site to right forearm: open to air and monitor. If weeping- cover with allyven dressing daily and PRN for falling off or soiling 2) Deep tissue injury to medial upper back: cleanse with wound cleanser, pat dry, apply skin prep and cover with allyven dressing daily. 3) BLE lymphedema with soft tissue infection including LLE trauma: cleanse well with 1/4 st dakins solution and pat dry well. Cover open areas with xeroform or adaptic gauze. Layer with abd pads. Wrap with bias roll or chip wrap. Change BID and PRN for saturating. 4)Upper lip friction: apply warm wet wash cloth for approx 3-5 minutes, gently removing crustings without causing site to bleed than apply bacitracin ointment TID and PRN Prescriptions/Referrals Prescriptions/Med Rec: New amiodarone 200 mg tablet 200 mg PO BID 30 Days Qty: 60 0RF Continued atorvastatin 40 mg tablet 40 mg PO ONCE HS Patient Comments: TAKE 1 TABLET BY MOUTH DAILY AT BEDTIME ferrous sulfate [FeroSul] 325 mg (65 mg iron) tablet 325 mg PO DAILY Patient Comments: TAKE 1 TABLET BY MOUTH DAILY losartan 50 mg tablet 50 mg PO DAILY Patient Comments: TAKE 1 TABLET BY MOUTH DAILY docusate sodium 100 mg capsule 100 mg PO DAILY PRN (Reason: constipation) albuterol sulfate 90 mcg/actuation HFA aerosol inhaler 2 puff INHALATION Q4H PRN (Reason: shortness of breath or wheezing) Patient Comments: INHALE 2 PUFFS BY MOUTH EVERY 4 HOURS NEEDED FOR SHORTNESS OF BREATH OR WHEEZING omeprazole 20 mg capsule,delayed release(DR/EC) 20 mg PO HS Patient Comments: TAKE 1 CAPSULE BY MOUTH DAILY AT BEDTIME tretinoin 0.025 % cream 1 applic TOPICAL DAILY UD Patient Comments: APPLY TOPICALLY TO FACE DAILY IN THE EVENING ergocalciferol (vitamin D2) 1,250 mcg (50,000 unit) capsule 50,000 unit PO .once a week Discontinued insulin aspart U-100 100 unit/mL (3 mL) insulin pen 20 unit SUBCUT .with meals Patient Comments: INJECT 15-20 UNITS UNDER THE SKIN THREE TIMES DAILY WITH MEALS PER SLIDING SCALE Referrals: Alex Chapa MD [Physician, Cardiology] Jennifer Hines MD [Physician, General Surgery] Lee Singer MD [Primary Care Provider] Patient/Caregiver Discharge Instructions Discharge Activity: activity as tolerated Education Materials: Discharge Instructions for ..., Heart Disease Women Print Language: South African Stand Alone Forms: Ira Award Info., Patient Portal Info Letter Discharge Order Discharge Orders: Discharge (Routine); Ordered 01/11/25 Ordered By: Tima Gutierrez Quality Discharge Quality Measures VTE prophylaxis MD Attestestation MD Attestation I reviewed labs, imaging, EKG, home medications and prior available records. Face to face evaluation was performed by me. I have personally examined the patient and discussed assessment and plan with the IM team. I reviewed the resident note and agree with the plan with exceptions as below. Left lower extremity cellulitis, secondary to group A streptococcus infection Atrial fibrillation with controlled ventricular rhythm YOU, resolved Acute hypoxic respiratory failure, resolved Insulin-dependent diabetes mellitus Chronic anemia Had an episode of hypoxia which resolved Finished a course of antibiotics Requested reevaluation by surgery: No indication for debridement Continue amiodarone and Eliquis Continue long-acting insulin plus sliding scale insulin. Monitor fingersticks Hemoglobin is slowly downtrending. No signs of active bleeding. Monitor H&H Pending insurance authorization for LTAC
--- NOTE | 2025-01-11 13:41 | PC.NURSE ---
Dr. Avelar notified of Cardiology recommendation to review hgb trend.
--- NOTE | 2025-01-11 16:01 | PC.URM ---
T/C from Annita from Patient's insurance who tells me that the Physician advisor Dr. Murillo does not agree with LTAC LOC. T/C and relayed this to Nani ROTHMAN
--- NOTE | 2025-01-11 16:34 | PC.SS ---
SOY was informed by [employer]ization Review the medical dermatologist from patient's health insurance has declined LTAC placement but will approve SNF placement. SOY spoke to patient's sister and caregiver, Yves who are aware and are requesting [facility]. SOY has spoken to Gabby and provided her with health insurance information and will start insurance authorization tomorrow.
--- NOTE | 2025-01-11 16:44 | ESPR_ITS ---
Documentation for date of: 01/11/25 Subjective Subjective Interval history: Patient was seen and assessed at bedside. No new complaints this morning, denies chest pain, shortness of breath, and palpitations. BP 137/71 this morning, continues to be 130s to 140s overnight. Heart rate in 70s-80s. Consider starting on metoprolol low dose if BP and HR permits. Sinus rhythm on telemetry, no A- fib. Potassium 3.5, magnesium 1.8, replete. Creatinine 0.5. Hgb slowly dropping, hold Eliquis 5 mg for now as patient has been in sinus rhythm for a few days now. Continue amiodarone 200 twice daily. Pending insurance approval for discharge to SNF. Recommend follow up with her special collections librarian outpatient 1-2 weeks after discharge. Exam Vital Signs Temp Pulse Resp BP Pulse Ox O2 Del Method O2 Flow Rate 96.6 F L 79 20 137/94 H 92 L Room Air 5 01/11/25 16:00 01/11/25 16:00 01/11/25 16:00 01/11/25 16:00 01/11/25 16:00 01/11/25 16:00 01/11/25 08:00 FiO2 78 01/08/25 20:01 Narrative Exam Physical Exam General: Awake and in no acute distress. Able to answer questions appropriately. Morbidly obese female. Weak voice s/p extubation. HEENT: Normocephalic, atraumatic, mucous membranes moist. Dried blood on philtrum. Heart: Regular rate and rhythm, normal S1 and S2, no murmurs. Lungs: Congestion upper airways. Decreased breath sounds due to large body habitus. Abdomen: Soft, obese, nondistended, nontender, positive bowel sounds. No guarding or rebound tenderness. Neurologic: Alert and oriented x3, no gross neurological deficit, and patient able to move all 4 extremities. Extremities: Severe hyperkeratotic changes bilaterally. Bullae ruptured and healing well, wounds have been dressed. Cellulites appears to be improving, withdrawing from marked borders. Objective Labs 01/12/25 05:36 01/12/25 05:36 Labs: Laboratory Results - last 24 hr 01/11/25 05:07 WBC 6.7 RBC 2.97 L Hgb 7.9 L Hct 25.8 L MCV 87 MCH 26.6 MCHC 30.6 L RDW Std Deviation 56.8 H Plt Count 238 Neut % (Auto) 79 Lymph % (Auto) 11 [place] % (Auto) 9 Eos % (Auto) 0 Baso % (Auto) 0 Neut # (Auto) 5.3 Lymph # (Auto) 0.8 L [place] # (Auto) 0.6 Eos # (Auto) 0.0 Baso # (Auto) 0.0 Immature Gran # (Auto) 0.04 H Absolute Nucleated RBC 0.00 Immature Gran % 1 H Nucleated RBC % 0 Sodium 143 Potassium 3.5 D Chloride 104 Carbon Dioxide 28.8 Anion Gap 10 BUN 18 Creatinine 0.5 L Estim Creat Clear Calc 176.3 eGFR > 60 BUN/Creatinine Ratio 36 H Glucose 119 H Calculated Osmolality 287 Calcium 8.8 Corrected Calcium 9.6 Phosphorus 4.0 Magnesium 1.8 Total Bilirubin 1.1 AST 18 ALT 32 Alkaline Phosphatase 148 H Total Protein 6.5 Albumin 3.0 L Globulin 3.5 Albumin/Globulin Ratio 0.9 L ABG Interpretation ABG results: 12/22/24 12/22/24 12/23/24 16:49 23:40 13:05 ABG pH 7.39 7.29 L D ABG pCO2 33 37 ABG pO2 60 L 73 L ABG HCO3 20 18 L ABG O2 Saturation 92 94 ABG Base Excess -5 L -8 L VBG pH 7.35 VBG pCO2 37 VBG pO2 27 VBG Base Excess -5 L 12/24/24 12/24/24 12/24/24 08:54 17:12 17:19 ABG pH 7.25 L 7.16 L* ABG pCO2 34 36 ABG pO2 166 H D 127 H D ABG HCO3 15 L 13 L ABG O2 Saturation 100 H 99 H ABG Base Excess -11 L -15 L VBG pH 7.12 L VBG pCO2 42 VBG pO2 44 VBG Base Excess -15 L 12/24/24 12/24/24 12/25/24 19:45 22:40 04:47 ABG pH 7.10 L* 7.21 L D 7.36 D ABG pCO2 50 H D 38 D 37 ABG pO2 249 H D 249 H 191 H D ABG HCO3 15 L 15 L 21 ABG O2 Saturation 100 H 100 H 100 H ABG Base Excess -14 L -12 L -4 L VBG pH VBG pCO2 VBG pO2 VBG Base Excess 12/25/24 12/25/24 12/26/24 15:59 19:55 04:10 ABG pH 7.41 7.41 7.36 ABG pCO2 37 39 37 ABG pO2 128 H D 123 H 99 D ABG HCO3 23 24 21 ABG O2 Saturation 100 H 99 H 98 ABG Base Excess -1 0 -4 L VBG pH VBG pCO2 VBG pO2 VBG Base Excess 12/27/24 12/27/24 12/28/24 04:08 09:45 04:14 ABG pH 7.47 H D 7.42 7.39 ABG pCO2 36 41 45 ABG pO2 82 L 97 114 H ABG HCO3 26 27 H 27 H ABG O2 Saturation 98 99 H 99 H ABG Base Excess 2 2 2 VBG pH VBG pCO2 VBG pO2 VBG Base Excess 12/29/24 12/30/24 12/31/24 04:30 04:50 04:20 ABG pH 7.38 7.37 7.39 ABG pCO2 46 47 45 ABG pO2 109 H 121 H 83 D ABG HCO3 27 H 27 H 27 H ABG O2 Saturation 99 H 99 H 97 ABG Base Excess 1 1 2 VBG pH VBG pCO2 VBG pO2 VBG Base Excess 01/01/25 01/02/25 01/03/25 04:38 04:13 04:52 ABG pH 7.41 7.43 7.47 H ABG pCO2 47 45 43 ABG pO2 100 92 131 H D ABG HCO3 30 H 29 H 31 H ABG O2 Saturation 99 H 99 H 100 H ABG Base Excess 5 H 4 H 7 H VBG pH VBG pCO2 VBG pO2 VBG Base Excess 01/04/25 09:00 ABG pH 7.48 H ABG pCO2 45 ABG pO2 74 L D ABG HCO3 33 H ABG O2 Saturation 94 ABG Base Excess 8 H VBG pH VBG pCO2 VBG pO2 VBG Base Excess Quality Measures Quality Measures VTE prophylaxis Assessment & Plan Assessment Current Active Medications: Generic Name Dose Route Start Last Admin Trade Name Freq PRN Reason Stop Dose Admin Albuterol/Ipratropium 3 ml 12/23/24 09:36 Albuterol/Ipratropium (Duoneb) Rt Ginny 3 Ml Nebu INH 01/22/25 07:44 Q8HRRT PRN wheezing Amiodarone HCl 200 mg 01/07/25 09:00 01/11/25 08:52 Amiodarone Hcl 200 Mg Tablet PO 02/06/25 08:59 200 mg BID TRACY Administration Apixaban 5 mg 01/08/25 21:00 01/11/25 08:52 Apixaban 2.5 Mg Tablet PO 02/07/25 20:59 5 mg BID TRACY Administration Artificial Tears 0 drop 01/08/25 14:40 01/08/25 15:25 Artificial Tears 225 Drop/15 Ml Btl BOTH EYES 02/07/25 14:39 1 applicatio PRN PRN Administration TO KEEP EYES MOIST Ascorbic Acid 500 mg 01/07/25 21:00 01/11/25 08:51 Ascorbic Acid 250 Mg Tablet PO 02/06/25 20:59 500 mg BID TRACY Administration Clotrimazole 0 gm 12/23/24 09:00 01/11/25 08:53 Clotrimazole Cr 1% 30 Gm Tube TOP 01/22/25 08:59 1 applicatio BID TRACY Administration Dextrose 25 ml 12/22/24 17:09 12/25/24 23:07 Dextrose 50%-Water Inj 50 Ml Syringe IV 01/21/25 17:08 25 ml Q15MIN PRN Administration BG 50-70 responsive npo pt Dextrose 50 ml 12/22/24 17:09 12/25/24 14:03 Dextrose 50%-Water Inj 50 Ml Syringe IV 01/21/25 17:08 50 ml Q15MIN PRN Administration BG <50 OR BG <70 & pt unresponsive Docusate Sodium 100 mg 01/08/25 21:00 01/11/25 08:52 Docusate Sod Liqd 100 Mg/10 Ml Udc PO 02/07/25 20:59 100 mg BID TRACY Administration Protocol Glucagon 1 mg 12/22/24 17:09 Glucagon Inj 1 Mg Vial IM Q15MIN PRN BG <70, and no IV access Insulin Degludec 25 unit 01/03/25 09:00 01/04/25 08:26 Insulin Degludec 5 Unit/0.05 Ml (Per 5 Units) SC 02/02/25 08:59 Not Given QDAY TRACY Insulin Human Lispro 0 unit 01/07/25 21:00 01/11/25 10:54 Insulin Lispro (Admelog) 1 Unit/0.01 Ml Unit SC 02/06/25 20:59 Not Given ACHS [facility] Protocol Multivitamins 1 tab 01/08/25 09:00 01/11/25 08:52 Multivitamins Tablet PO 02/07/25 08:59 1 tab QDAY TRACY Administration Neomycin/Polymyxin/Bacitracin 0 gm 01/04/25 22:00 01/11/25 13:46 Mehul/Poly/Ethan (Neosporin) Oint 15 Gm Tube TOP 01/11/25 21:59 1 applicatio TID TRACY Administration Ondansetron HCl 4 mg 12/22/24 17:09 Ondansetron Inj 2 Mg/Ml Inj 2 Ml IVP 01/21/25 17:08 Q6H PRN NAUSEA OR VOMITING Protocol Polyethylene Glycol 17 gm 01/07/25 10:00 01/11/25 08:51 Polyethylene Glycol 17 Gm Packet PO 02/06/25 09:59 17 gm QDAY TRACY Administration Sennosides 1 tab 01/07/25 10:00 01/11/25 08:51 Senna Tablet PO 02/06/25 09:59 1 tab QDAY TRACY Administration Protocol Sodium Hypochlorite 473 ml 01/07/25 21:00 01/11/25 08:53 Sod Hypochlorite 1/4 Str 473 Ml Btl IRRIG 02/06/25 20:59 1 appln BID TRACY Administration Zinc Sulfate 220 mg 01/08/25 09:00 01/11/25 08:51 Zinc Sulfate 220 Mg Capsule PO 02/21/25 08:59 220 mg QDAY TRACY Administration Plan Patient is a 54-year-old female with past medical history of IDDM2, bilateral lower limb lymphedema, lipedema, asthma, epilepsy, morbid obesity, wheelchair- bound for 9 years, was brought to the ED on 12/22/24 for left lower extremity pain and clear cirrhosis fluid oozing. Patient was admitted to the ICU for distributive shock. Cardiology team was consulted because of new onset A-fib with RVR and newly diagnosed CHF. #Newly diagnosed HFrEF (40-45%, 11/2024) #New onset A-fib with RVR likely induced by shock state #Streptococcus pyogenes bacteremia 2/2 LLE cellulitis Patient presented with sepsis secondary to left leg cellulitis, her condition worsened to distributive shock. During her stay she developed A-fib with RVR, with no known hx of afib, we started the patient on amiodarone drip. Even though her body habitus echo was done and showed ejection fraction of 40 to 45%. With normal RV function. BNP was 204 which most likely skewed by patient obesity. Troponin was negative. 12/22/24 Echo showed Over all poor images due to body habitus and technically difficult study. Normal left ventricular size and function.Stage I diastolic dysfunction. Estimated ejection fraction is 40-45%. Normal right ventricular size and function. RVSP 39 mm Hg with RAP 8. Mild pulmonary HTN Trace MR and Mild TR. TDS due to patient morbid and laying on supine view, couldn't move. (patient had open wounds under breast) 12/25/2024 patient was started on CRRT due to worsening lactic acidosis and kidney function, blood culture growing Streptococcus pyogenes. 12/27/2024, Amiodrine drip was stopped by the primary team as the patient converted to sinus rhythm. Patient was having tachycardia heart rate of 113 however it was regular sinus. 12/31/24, EKG showed atrial flutter with RVR with 2:1 AV block. Restarted on amiodarone drip 0.5 mg/min around 1PM however patient continues to be in afib w RVR. 01/01/25, continues to be in atrial flutter with RVR with 2: 1 AV block. QTc noted to be 556 on EKG however taking consideration the QRS is widened, QTc is actually likely around 480 calculated by [facility] formula (HR 135, QT interval 8 boxes). Her BUN is elevated at 42 as well as hemoglobin is dropping down over the last couple of days which is contributing to the RVR. Patient mostly has upper GI bleed mostly secondary to oozing of blood from the possible stress- induced gastritis. Recommended primary team to obtain stool guaiac has been GI consult. Discussed this with the critical care attending 01/02/25 -Still continues to be in flutter with variable block and heart rate is better controlled patient continues to be sedated and intubated. Recommend to continue amiodarone drip at 1 mg per minute until patient is able to take oral medications removed 2.7 L during dialysis yesterday. Hemoglobin is still lower at 6.9 today. Primary team planning to transfer the patient to 2 units of PRBC and GI team has been consulted this morning for further evaluation. 01/04/2025?patient rhythm controlled on amiodarone drip. Appears to be in sinus tachycardia on telemetry. Heart rate also improved significantly, now in low 90s to 110s. Likely improved secondary to blood transfusions. See anemia workup by GI below. Plan - Amiodarone 200 mg twice daily - Hold Eliquis 5 mg BID in light of low hgb - Recommend starting metopropol tartrate 12.5mg q8hr if BP and HR permit. Will continue to work towards GDMT management as tolerated. ? Due to patient condition no invasive cardiac procedure will be done at this time ? Strict in and out ? Keep potassium and magnesium above 4 and 2 respectively within normal range. This will also help decrease QTc. #Normocytic anemia #Concern for acute GI bleed from stress induced gastritis Hgb downtrending during admission, note drop from 9.7 on 12/29 to 7.1 on 12/30. S/p 1 unit pRBC on 01/01 for Hgb 7.4. Hgb dropped to 6.9. 01/02/2025: Status post 2 units PRBC. Endoscopy showed esophagitis and gastritis characterized by erythema. GI does not believe so there is a drop in hemoglobin hematocrit was due to upper GI bleed. Colonoscopy 01/04/25: Showed internal hemorrhoids, entire colon is normal. Iron panel 01/05/2025: Iron, TIBC, iron saturation, unsaturated iron binding all low. - Hgb now stable, likely due to resolution of shock, however continues to be anemic. -Will defer anemia management to primary team. ? Continue to monitor hemoglobin #Distributive shock most likely secondary to sepsis, resolved #Sepsis secondary to left leg cellulitis #Toxic shock syndrome #Lower extremity lymphedema S/p IgG immunoglobulin Plan ? Primary team switched from clindamycin and meropenem, completed 10-day course with 2 days of IV CFX. ? Stable off norepinephrine drip and vasopressin for distributive shock, only on PRN. ?Off sedation and extubated #History of seizure disorder Patient on antiseizure meds #History of COPD Supplemental oxygen, BiPAP as needed, DuoNebs #Elevated bilirubin, elevated AST, hypoalbuminemia Secondary to toxic shock syndrome versus septic shock Follow primary team recommendations #Lactic acidosis improving s/p CRRT #YOU #Non-anion gap metabolic acidosis Thank you for your consultation, please do not hesitate to reach out if you have any question or concern Patient plan of care was discussed with the attending physician, Dr. Chapa. Obdulia Evans, PGY-1 Attending Provider Attestation/Addendum I have personally seen and examined the patient separately on the above date of service and discussed the plan of care with the resident. I reviewed the resident Dr. Obdulia Evans consultation progress note and agree with the resident findings and plan in the note above and have also edited the documentation to reflect my findings and plan. Alex Chapa M.D. Interventional Cardiology
--- NOTE | 2025-01-11 20:45 | ESPR_ITS ---
Documentation for date of: 01/11/25 Subjective Subjective Interval history: Patient evaluated discharge planning in progress Colonoscopy showed 2+ internal hemorrhoids otherwise normal to cecum Upper endoscopy showed gastritis If patient needs anticoagulation she can be anticoagulated fully But at the moment Eliquis is on hold because of the sinus rhythm on metoprolol and amiodarone Exam Vital Signs Temp Pulse Resp BP Pulse Ox O2 Del Method O2 Flow Rate 98 F 81 24 H 143/76 H 94 L Nasal Cannula 5 01/11/25 20:00 01/11/25 20:00 01/11/25 20:00 01/11/25 20:00 01/11/25 20:00 01/11/25 20:00 01/11/25 20:00 FiO2 78 01/08/25 20:01 Objective Labs 01/11/25 05:07 01/11/25 05:07 Labs: Laboratory Results - last 24 hr 01/11/25 05:07 WBC 6.7 RBC 2.97 L Hgb 7.9 L Hct 25.8 L MCV 87 MCH 26.6 MCHC 30.6 L RDW Std Deviation 56.8 H Plt Count 238 Neut % (Auto) 79 Lymph % (Auto) 11 [place] % (Auto) 9 Eos % (Auto) 0 Baso % (Auto) 0 Neut # (Auto) 5.3 Lymph # (Auto) 0.8 L [place] # (Auto) 0.6 Eos # (Auto) 0.0 Baso # (Auto) 0.0 Immature Gran # (Auto) 0.04 H Absolute Nucleated RBC 0.00 Immature Gran % 1 H Nucleated RBC % 0 Sodium 143 Potassium 3.5 D Chloride 104 Carbon Dioxide 28.8 Anion Gap 10 BUN 18 Creatinine 0.5 L Estim Creat Clear Calc 176.3 eGFR > 60 BUN/Creatinine Ratio 36 H Glucose 119 H Calculated Osmolality 287 Calcium 8.8 Corrected Calcium 9.6 Phosphorus 4.0 Magnesium 1.8 Total Bilirubin 1.1 AST 18 ALT 32 Alkaline Phosphatase 148 H Total Protein 6.5 Albumin 3.0 L Globulin 3.5 Albumin/Globulin Ratio 0.9 L Impressions Impression: Gastritis Internal hemorrhoids Diverticulosis left colon Atrial fibrillation now in sinus rhythm on metoprolol and amiodarone Continue current management ABG Interpretation ABG results: 12/22/24 12/22/24 12/23/24 16:49 23:40 13:05 ABG pH 7.39 7.29 L D ABG pCO2 33 37 ABG pO2 60 L 73 L ABG HCO3 20 18 L ABG O2 Saturation 92 94 ABG Base Excess -5 L -8 L VBG pH 7.35 VBG pCO2 37 VBG pO2 27 VBG Base Excess -5 L 12/24/24 12/24/24 12/24/24 08:54 17:12 17:19 ABG pH 7.25 L 7.16 L* ABG pCO2 34 36 ABG pO2 166 H D 127 H D ABG HCO3 15 L 13 L ABG O2 Saturation 100 H 99 H ABG Base Excess -11 L -15 L VBG pH 7.12 L VBG pCO2 42 VBG pO2 44 VBG Base Excess -15 L 12/24/24 12/24/24 12/25/24 19:45 22:40 04:47 ABG pH 7.10 L* 7.21 L D 7.36 D ABG pCO2 50 H D 38 D 37 ABG pO2 249 H D 249 H 191 H D ABG HCO3 15 L 15 L 21 ABG O2 Saturation 100 H 100 H 100 H ABG Base Excess -14 L -12 L -4 L VBG pH VBG pCO2 VBG pO2 VBG Base Excess 12/25/24 12/25/24 12/26/24 15:59 19:55 04:10 ABG pH 7.41 7.41 7.36 ABG pCO2 37 39 37 ABG pO2 128 H D 123 H 99 D ABG HCO3 23 24 21 ABG O2 Saturation 100 H 99 H 98 ABG Base Excess -1 0 -4 L VBG pH VBG pCO2 VBG pO2 VBG Base Excess 12/27/24 12/27/24 12/28/24 04:08 09:45 04:14 ABG pH 7.47 H D 7.42 7.39 ABG pCO2 36 41 45 ABG pO2 82 L 97 114 H ABG HCO3 26 27 H 27 H ABG O2 Saturation 98 99 H 99 H ABG Base Excess 2 2 2 VBG pH VBG pCO2 VBG pO2 VBG Base Excess 12/29/24 12/30/24 12/31/24 04:30 04:50 04:20 ABG pH 7.38 7.37 7.39 ABG pCO2 46 47 45 ABG pO2 109 H 121 H 83 D ABG HCO3 27 H 27 H 27 H ABG O2 Saturation 99 H 99 H 97 ABG Base Excess 1 1 2 VBG pH VBG pCO2 VBG pO2 VBG Base Excess 01/01/25 01/02/25 01/03/25 04:38 04:13 04:52 ABG pH 7.41 7.43 7.47 H ABG pCO2 47 45 43 ABG pO2 100 92 131 H D ABG HCO3 30 H 29 H 31 H ABG O2 Saturation 99 H 99 H 100 H ABG Base Excess 5 H 4 H 7 H VBG pH VBG pCO2 VBG pO2 VBG Base Excess 01/04/25 09:00 ABG pH 7.48 H ABG pCO2 45 ABG pO2 74 L D ABG HCO3 33 H ABG O2 Saturation 94 ABG Base Excess 8 H VBG pH VBG pCO2 VBG pO2 VBG Base Excess Assessment & Plan A&P Narrative # Drop in hemoglobin hematocrit etiology uncertain possible occult GI bleeding Consent will be obtained for possible fiberoptic esophagogastroduodenoscopy with possible biopsy therapeutic intervention under intravenous moderate sedation if negative will consider a fiberoptic colonoscopy After GoLytely prep # Other medical problems include metabolic encephalopathy Diabetes mellitus type 2 Atrial flutter/fibrillation on amiodarone drip Necrosis of the distal toes Mechanically ventilated Thank you very much for the opportunity to participate in the care of this patient Time Spent With Patient Time: Total time spent is greater than 50% in coordination of care (as documented) at patient's floor/unit and/or counseling patient: PROCEDURES: Arterial Line Size (Gauge): 20
[2025-01-12] VITALS (13 sets, daily range): BP systolic 128–162; BP diastolic 67–86; PULSE 66–78; RESP 16–20; TEMP 36.4–36.8; O2SAT 95–99
--- NOTE | 2025-01-12 04:08 | PC.NURSE ---
Dr. Haddad notified regarding patient heart rate dropping to 48 but not sustaining and going back in the 50s, patient asymptomatic. No new orders at this time.
[2025-01-12 06:02] LABS: Basophils # (Auto) 0.0 Thou/mm3 (0.0-0.2); Basophils % (Auto) 1 % (0-2.5); Eosinophils # (Auto) 0.0 Thou/mm3 (0.0-0.5); Eosinophils % (Auto) 1 % (0-10); Hematocrit 26.6 % (36.0-46.0); Immature Granulocytes Auto 0.06 Thou/mm3 (0.00-0.00); Lymphocytes # (Auto) 0.7 Thou/mm3 (1.0-4.8); Lymphocytes % (Auto) 12 % (10-50); Mean Corpuscular HGB Conc 31.6 g/dl (31.0-37.0); Mean Corpuscular Hemoglobin 28.0 pg (25.0-35.0); Mean Corpuscular Volume 89 fL (80-100); Monocytes # (Auto) 0.6 Thou/mm3 (0.0-0.8); Monocytes % (Auto) 10 % (0-12); Neutrophils # (Auto) 4.5 Thou/mm3 (1.8-7.7); Neutrophils % (Auto) 76 % (37-80); Nucleated Red Blood Cell # 0.00 Thou/mm3 (0.00-0.00); Nucleated Red Blood Cell % 0 /100 WBC (0); Platelet Count 188 Thou/mm3 (140-440); RDW Standard Deviation 58.3 fL (36.4-46.3); Red Blood Count 3.00 Miln/mm3 (4.00-5.20); White Blood Count 5.9 Thou/mm3 (3.6-11.0)
[2025-01-12 06:08] LABS: Hemoglobin 8.4 g/dL (12.0-16.0)
[2025-01-12 06:33] LABS: Alanine Aminotransferase 26 U/L (10-49); Albumin, Serum 2.8 gm/dL (3.5-5.0); Albumin/Globulin Ratio 0.8 (1.2-2.2); Alkaline Phosphatase 127 U/L (46-116); Anion Gap 11 (7-16); Aspartate Amino Transferase 22 U/L (0-34); BUN/Creatinine Ratio 28 Ratio (12-20); Bilirubin,Total 1.0 mg/dL (0.3-1.2); Blood Urea Nitrogen 14 mg/dL (9-23); Calcium 8.5 mg/dL (8.3-10.6); Calcium (Corrected) 9.5 mg/dL (8.5-10.1); Carbon Dioxide 26.5 mMol/L (20.0-31.0); Chloride 105 mMol/L (98-107); Creatinine (Component) 0.5 mg/dL (0.6-1.3); Estimated Creatinine Clearance 176.3 mL/min (>60); Globulin 3.4 gm/dL (2.3-3.5); Glucose 121 mg/dL (74-106); Magnesium 1.9 mg/dL (1.6-2.6); Osmolality,Calculated 284 (275-295); Phosphorous 4.4 mg/dL (2.4-5.1); Potassium 4.1 mMol/L (3.4-5.1); Sodium 142 mMol/L (136-145); Total Protein 6.2 gm/dL (5.7-8.2); eGFR > 60 See Note
--- NOTE | 2025-01-12 08:23 | PD.RESDS ---
Planned Discharge Date 01/12/25 DS: Providers Provider Date of admission: 12/22/24 17:09 Primary care physician: Lee Singer MD Admitting Provider: Alf Villaseñor DO Attending Provider on Admission: Luciano Mahoney MD Consults: 12/22/24 16:04 Referral Wound Care Stat Comment: 12/22/24 17:13 Referral OP Wound Healing Dept Routine Comment: 12/23/24 01:13 [facility] Referral - Nutrition Routine Comment: Positive screening for nutrition needs. 12/23/24 15:00 Referral Nutritional Services Routine Comment: Wounds, morbid obesity 12/23/24 19:48 Consult to Cardiology Stat Comment: Consulting Provider: Alex Chapa Instructions: SVT 12/25/24 10:22 Consult to Nephrology Urgent Comment: Consulting Provider: Maykel Stiles 12/25/24 11:01 Referral Registered Dietitian Routine Comment: For tube feeds please 12/26/24 10:24 Referral - Progress Man Stat Service Needed for Transfer: General Surgery Addl Comments:: For surgical Evaluation +/- Debridement of Lower limbs. Patient has toxic shock syndrome 12/26/24 13:36 Consult to General Surgery Routine Comment: Consulting Provider: Jennifer Hines 12/27/24 13:24 Referral Nutritional Services Routine Comment: Deep tissue injury to upper back Referral Wound Care Routine Comment: deep tissue injury to medial upper back 01/02/25 11:12 Consult to Gastroenterology Urgent Comment: SUspected GI bleed Consulting Provider: Brayan Johnson 01/04/25 12:18 Referral Speech Therapy Stat Comment: 01/06/25 13:28 Referral Physical Therapy Routine Comment: Physician Instructions: Attending Provider on DC: Jaylen Avelar DO Discharging Provider: Jaylen Avelar DO Hospital Course Hospital Course Hospital course: Patient evaluated discharge planning in progress Colonoscopy showed 2+ internal hemorrhoids otherwise normal to cecum Upper endoscopy showed gastritis If patient needs anticoagulation she can be anticoagulated fully But at the moment Eliquis is on hold because of the sinus rhythm on metoprolol and amiodarone Time Spent with Patient Time attestation: Total time spent providing and/or coordinating discharge services: Exam Vital Signs Temp Pulse Resp BP Pulse Ox O2 Del Method O2 Flow Rate 98 F 70 16 137/67 H 99 Nasal Cannula 2 01/12/25 04:00 01/12/25 07:32 01/12/25 07:32 01/12/25 04:00 01/12/25 07:32 01/12/25 04:00 01/12/25 07:32 FiO2 78 01/08/25 20:01 Discharge Plan Plan Patient Disposition: Xfer Skilled Nsg Fac (SNF) Care Plan Goals: Please take amiodarone 200 mg tablet twice a day for atrial fibrillation Stop using insulin as your blood sugars are well controlled and your last A1c is 5.6 Continue all other home medications as prescribed Follow-up with felt puller Dr. Chapa to start GDMT for Heart Failure - ask if you should start anticoagulation which was held due to bleeding Follow-up with general surgeon Dr. Hines to see if any procedure can be done for your legs Please follow-up with PCP within 1 week of discharge or follow-up at the [facility] [address] [place] [address] Continue physical therapy and wound care at the [facility] If your symptoms worsen or if you develop new chest pain, shortness of breath, severe leg pain or bleeding - please come back to the ED immediately. Wound care: 1) IV infiltrate site to right forearm: open to air and monitor. If weeping- cover with allyven dressing daily and PRN for falling off or soiling 2) Deep tissue injury to medial upper back: cleanse with wound cleanser, pat dry, apply skin prep and cover with allyven dressing daily. 3) BLE lymphedema with soft tissue infection including LLE trauma: cleanse well with 1/4 st dakins solution and pat dry well. Cover open areas with xeroform or adaptic gauze. Layer with abd pads. Wrap with bias roll or chip wrap. Change BID and PRN for saturating. 4)Upper lip friction: apply warm wet wash cloth for approx 3-5 minutes, gently removing crustings without causing site to bleed than apply bacitracin ointment TID and PRN Prescriptions/Referrals Prescriptions/Med Rec: New amiodarone 200 mg tablet 200 mg PO BID 30 Days Qty: 60 0RF Continued atorvastatin 40 mg tablet 40 mg PO ONCE HS Patient Comments: TAKE 1 TABLET BY MOUTH DAILY AT BEDTIME ferrous sulfate [FeroSul] 325 mg (65 mg iron) tablet 325 mg PO DAILY Patient Comments: TAKE 1 TABLET BY MOUTH DAILY losartan 50 mg tablet 50 mg PO DAILY Patient Comments: TAKE 1 TABLET BY MOUTH DAILY docusate sodium 100 mg capsule 100 mg PO DAILY PRN (Reason: constipation) albuterol sulfate 90 mcg/actuation HFA aerosol inhaler 2 puff INHALATION Q4H PRN (Reason: shortness of breath or wheezing) Patient Comments: INHALE 2 PUFFS BY MOUTH EVERY 4 HOURS NEEDED FOR SHORTNESS OF BREATH OR WHEEZING omeprazole 20 mg capsule,delayed release(DR/EC) 20 mg PO HS Patient Comments: TAKE 1 CAPSULE BY MOUTH DAILY AT BEDTIME tretinoin 0.025 % cream 1 applic TOPICAL DAILY UD Patient Comments: APPLY TOPICALLY TO FACE DAILY IN THE EVENING ergocalciferol (vitamin D2) 1,250 mcg (50,000 unit) capsule 50,000 unit PO .once a week Discontinued insulin aspart U-100 100 unit/mL (3 mL) insulin pen 20 unit SUBCUT .with meals Patient Comments: INJECT 15-20 UNITS UNDER THE SKIN THREE TIMES DAILY WITH MEALS PER SLIDING SCALE Referrals: Alex Chapa MD [Physician, Cardiology] Jennifer Hines MD [Physician, General Surgery] Lee Singer MD [Primary Care Provider] Patient/Caregiver Discharge Instructions Discharge Activity: activity as tolerated Education Materials: Discharge Instructions for ..., Heart Disease Women Print Language: Pashto Stand Alone Forms: Ira Award Info., Patient Portal Info Letter Discharge Order Discharge Orders: Discharge (Routine); Ordered 01/11/25 Ordered By: Tima Gutierrez
--- NOTE | 2025-01-12 08:26 | PD.RESPRO ---
Documentation for date of: 01/12/25 Subjective Subjective Interval history: No Overnight events. Labs reviewed and patient examined at the bedside. Patient has failed to be discharged to LTAC. Pending SNF placement. Patient talking fluently. Alert and oriented x3. Still feels weak. Will need 24/7 care upon discharge and director long term care recovery. Exam Vital Signs Temp Pulse Resp BP Pulse Ox O2 Del Method O2 Flow Rate 98 F 70 16 137/67 H 99 Nasal Cannula 2 01/12/25 04:00 01/12/25 07:32 01/12/25 07:32 01/12/25 04:00 01/12/25 07:32 01/12/25 04:00 01/12/25 07:32 FiO2 78 01/08/25 20:01 Narrative Exam General: Alert, Morbidly obese, Drowsy Eye: EOMI, normal conjunctiva, no scleral icterus HENT: Normocephalic, dry oral mucosa. Dark red crust over philtrum region. Neck: Supple, non-tender, no JVD, no lymphadenopathy Lungs: Labored respirations, symmetric chest rise, Clear to auscultate bilaterally, No wheezing, rhonchi, crackles Heart: Peripheral pulses intact bilaterally, Regular Rate and Rhythm. Abdomen: Soft, non-tender, non-distended, no palpable masses Musculoskeletal: Bilateral lower extremity erythema extending to thighs reaching towards the hip and torso with yellow crusts on top. Necrotic bilateral toes, right fingers, left middle fingers. Discolored lesion around right buttock. Cold distal extremity, Mild oozing of yellow fluid. Skin: Cold distal extremity. Refer to [facility]. Psychiatric: Cooperative, Awake and alert, Able to communicate verbally. Neuro: Cranial nerves II-XII grossly intact. Strength 1/5 throughout. Limited sensations in distal extremities. Objective Labs 01/12/25 05:36 01/12/25 05:36 Labs: Laboratory Results - last 24 hr 12/29/24 01/12/25 10:16 05:36 WBC 5.9 RBC 3.00 L Hgb 8.4 L Hct 26.6 L MCV 89 MCH 28.0 MCHC 31.6 RDW Std Deviation 58.3 H Plt Count 188 D Neut % (Auto) 76 Lymph % (Auto) 12 [place] % (Auto) 10 Eos % (Auto) 1 Baso % (Auto) 1 Neut # (Auto) 4.5 Lymph # (Auto) 0.7 L [place] # (Auto) 0.6 Eos # (Auto) 0.0 Baso # (Auto) 0.0 Immature Gran # (Auto) 0.06 H Absolute Nucleated RBC 0.00 Immature Gran % 1 H Nucleated RBC % 0 Sodium 142 Potassium 4.1 D Chloride 105 Carbon Dioxide 26.5 Anion Gap 11 BUN 14 Creatinine 0.5 L Estim Creat Clear Calc 176.3 eGFR > 60 BUN/Creatinine Ratio 28 H Glucose 121 H Calculated Osmolality 284 Calcium 8.5 Corrected Calcium 9.5 Phosphorus 4.4 Magnesium 1.9 Total Bilirubin 1.0 AST 22 ALT 26 Alkaline Phosphatase 127 H D Total Protein 6.2 Albumin 2.8 L Globulin 3.4 Albumin/Globulin Ratio 0.8 L Crossmatch See Detail ABG Interpretation ABG results: 12/22/24 12/22/24 12/23/24 16:49 23:40 13:05 ABG pH 7.39 7.29 L D ABG pCO2 33 37 ABG pO2 60 L 73 L ABG HCO3 20 18 L ABG O2 Saturation 92 94 ABG Base Excess -5 L -8 L VBG pH 7.35 VBG pCO2 37 VBG pO2 27 VBG Base Excess -5 L 12/24/24 12/24/24 12/24/24 08:54 17:12 17:19 ABG pH 7.25 L 7.16 L* ABG pCO2 34 36 ABG pO2 166 H D 127 H D ABG HCO3 15 L 13 L ABG O2 Saturation 100 H 99 H ABG Base Excess -11 L -15 L VBG pH 7.12 L VBG pCO2 42 VBG pO2 44 VBG Base Excess -15 L 12/24/24 12/24/24 12/25/24 19:45 22:40 04:47 ABG pH 7.10 L* 7.21 L D 7.36 D ABG pCO2 50 H D 38 D 37 ABG pO2 249 H D 249 H 191 H D ABG HCO3 15 L 15 L 21 ABG O2 Saturation 100 H 100 H 100 H ABG Base Excess -14 L -12 L -4 L VBG pH VBG pCO2 VBG pO2 VBG Base Excess 12/25/24 12/25/24 12/26/24 15:59 19:55 04:10 ABG pH 7.41 7.41 7.36 ABG pCO2 37 39 37 ABG pO2 128 H D 123 H 99 D ABG HCO3 23 24 21 ABG O2 Saturation 100 H 99 H 98 ABG Base Excess -1 0 -4 L VBG pH VBG pCO2 VBG pO2 VBG Base Excess 12/27/24 12/27/24 12/28/24 04:08 09:45 04:14 ABG pH 7.47 H D 7.42 7.39 ABG pCO2 36 41 45 ABG pO2 82 L 97 114 H ABG HCO3 26 27 H 27 H ABG O2 Saturation 98 99 H 99 H ABG Base Excess 2 2 2 VBG pH VBG pCO2 VBG pO2 VBG Base Excess 12/29/24 12/30/24 12/31/24 04:30 04:50 04:20 ABG pH 7.38 7.37 7.39 ABG pCO2 46 47 45 ABG pO2 109 H 121 H 83 D ABG HCO3 27 H 27 H 27 H ABG O2 Saturation 99 H 99 H 97 ABG Base Excess 1 1 2 VBG pH VBG pCO2 VBG pO2 VBG Base Excess 01/01/25 01/02/25 01/03/25 04:38 04:13 04:52 ABG pH 7.41 7.43 7.47 H ABG pCO2 47 45 43 ABG pO2 100 92 131 H D ABG HCO3 30 H 29 H 31 H ABG O2 Saturation 99 H 99 H 100 H ABG Base Excess 5 H 4 H 7 H VBG pH VBG pCO2 VBG pO2 VBG Base Excess 01/04/25 09:00 ABG pH 7.48 H ABG pCO2 45 ABG pO2 74 L D ABG HCO3 33 H ABG O2 Saturation 94 ABG Base Excess 8 H VBG pH VBG pCO2 VBG pO2 VBG Base Excess Quality Measures Quality Measures VTE prophylaxis Assessment & Plan Assessment Current Active Medications: Generic Name Dose Route Start Last Admin Trade Name Freq PRN Reason Stop Dose Admin Albuterol/Ipratropium 3 ml 12/23/24 09:36 Albuterol/Ipratropium (Duoneb) Rt Ginny 3 Ml Nebu INH 01/22/25 07:44 Q8HRRT PRN wheezing Amiodarone HCl 200 mg 01/07/25 09:00 01/11/25 21:59 Amiodarone Hcl 200 Mg Tablet PO 02/06/25 08:59 200 mg BID TRACY Administration Apixaban 5 mg 01/08/25 21:00 01/11/25 22:00 Apixaban 2.5 Mg Tablet PO 02/07/25 20:59 5 mg BID TRACY Administration Artificial Tears 0 drop 01/08/25 14:40 01/08/25 15:25 Artificial Tears 225 Drop/15 Ml Btl BOTH EYES 02/07/25 14:39 1 applicatio PRN PRN Administration TO KEEP EYES MOIST Ascorbic Acid 500 mg 01/07/25 21:00 01/11/25 21:59 Ascorbic Acid 250 Mg Tablet PO 02/06/25 20:59 500 mg BID TRACY Administration Clotrimazole 0 gm 12/23/24 09:00 01/11/25 22:03 Clotrimazole Cr 1% 30 Gm Tube TOP 01/22/25 08:59 1 applicatio BID TRACY Administration Dextrose 25 ml 12/22/24 17:09 12/25/24 23:07 Dextrose 50%-Water Inj 50 Ml Syringe IV 01/21/25 17:08 25 ml Q15MIN PRN Administration BG 50-70 responsive npo pt Dextrose 50 ml 12/22/24 17:09 12/25/24 14:03 Dextrose 50%-Water Inj 50 Ml Syringe IV 01/21/25 17:08 50 ml Q15MIN PRN Administration BG <50 OR BG <70 & pt unresponsive Docusate Sodium 100 mg 01/08/25 21:00 01/11/25 21:59 Docusate Sod Liqd 100 Mg/10 Ml Udc PO 02/07/25 20:59 100 mg BID TRACY Administration Protocol Glucagon 1 mg 12/22/24 17:09 Glucagon Inj 1 Mg Vial IM Q15MIN PRN BG <70, and no IV access Insulin Degludec 25 unit 01/03/25 09:00 01/04/25 08:26 Insulin Degludec 5 Unit/0.05 Ml (Per 5 Units) SC 02/02/25 08:59 Not Given QDAY [facility] Insulin Human Lispro 0 unit 01/07/25 21:00 01/12/25 07:43 Insulin Lispro (Admelog) 1 Unit/0.01 Ml Unit SC 02/06/25 20:59 Not Given ACHS [facility] Protocol Multivitamins 1 tab 01/08/25 09:00 01/11/25 08:52 Multivitamins Tablet PO 02/07/25 08:59 1 tab QDAY TRACY Administration Ondansetron HCl 4 mg 12/22/24 17:09 Ondansetron Inj 2 Mg/Ml Inj 2 Ml IVP 01/21/25 17:08 Q6H PRN NAUSEA OR VOMITING Protocol Polyethylene Glycol 17 gm 01/07/25 10:00 01/11/25 08:51 Polyethylene Glycol 17 Gm Packet PO 02/06/25 09:59 17 gm QDAY TRACY Administration Sennosides 1 tab 01/07/25 10:00 01/11/25 08:51 Senna Tablet PO 02/06/25 09:59 1 tab QDAY TRACY Administration Protocol Sodium Hypochlorite 473 ml 01/07/25 21:00 01/11/25 22:00 Sod Hypochlorite 1/4 Str 473 Ml Btl IRRIG 02/06/25 20:59 1 appln BID TRACY Administration Zinc Sulfate 220 mg 01/08/25 09:00 01/11/25 08:51 Zinc Sulfate 220 Mg Capsule PO 02/21/25 08:59 220 mg QDAY TRACY Administration Plan 54-year-old female with past medical history of prior NE?, Insulin-dependent type 2 diabetes, lymphedema, lipedema, asthma, epilepsy, morbid obesity, nonambulatory for 9 years, wheelchair-bound presenting to the ED on 12/22 with left lower extremity pain and oozing. Admitted to ICU for management of cellulitis and shock. Patient has been stabilized and has [facility] #Cellulitis 2/2 Streptococcus pyogenes bacteremia ? Resolving #Distributive Shock-Resolving #Lactic acidosis-Resolving #2/2 Toxic Shock Syndrome #Leukocytosis - Resolved #Coagulopathy 2/2 toxic shock syndrome - Resolved -On admission, lactic acid: 7.6, peaked to 10.0 (at 12/26), now down trending to 2.5 -On admission, WBC: 5.8, peaked to 52.9 (at 12/31), now down trending to 7.6 -Blood Cx (12/22/2024): Youssef-sensitive Streptococcus pyogenes (Group A Streptococcus) x2/2 -Likely main etiology of sepsis with toxic shock syndrome. -Timeline of antibiotic regimen given in ICU detailed below: 1. IV vancomycin dosed by pharmacy [12/22-12/25, discontinued due to MRSA(-)] 2. IV clindamycin 600 mg q8HR [12/22-12/30, dc'd due to concern for Drug induced Thrombocytopenia and no longer needed for TSS] 3. IV cefepime 2 gm q12HR [12/22-12/24, discontinued after TSS became favored diagnosis] 4. IV meropenem 1000 mg q8HR [12/24-12/30, dc'd due to possible Drug induced Thrombocytopenia] 5. IV Ceftriaxone 2 g qday [12/30 - 01/01 for total ABX course of 10 days] -Blood Cx (12/28): Coag Negative Staph Plan: -Continue Would care management -Bilateral Above Knee Amputation (AKA) has been discussed, but currently undecided. - will need to follow up outpatient with Surgery -pending insurance auth for LTAC. #Atrial fibrillation w/ RVR #Acute systolic and diastolic dysfunction w/ mildly reduced EF [40-45%] -12/22 echocardiogram showed reduced EF of 45% -Episodes of A fib w/ RVR during ICU. CHADS-VASc score 3 (female, CHF, hypertension) Plan: -Patient on Amiodarone PO -per EGD and cololoscopy note -no active bleeding -started Apixaban 5 BID #YOU 2/2 Distributive Shockresolved #ATN -On admission, BUN:14, Cr: 1.8 (baseline 0.7), eGFR:33 -Likely combination of pre-renal and intrinsic cause of YOU due to distributive shock and infection. -Hemodialysis sessions: 12/24, 12/26, 12/27, 12/29, 12/31, 01/01 Plan: -Given stability, hemodialysis unlikely -Strict I's & O's -Avoid nephrotoxins -Renally dose medications #GI bleed R/O #Anemia, Microcytic -Patient has Chronic Anemia with trending down hemoglobin. -Throughout stay in ICU, risk of stress ulcers with thrombocytopenia, coagulopathy, intubation, critical illness. -Received total 3 Blood transfusions -EGD 01/02 showed gastritis and no bleeding -Colonoscopy 01/04 showed internal hemorrhoids with normal colon -Current Hgb: 9.0 Plan: -Continue to monitor Hgb and sign of bleeding #Necrotic distal digits -Necrosis of distal right fingers, distal left middle finger, and distal right toes. -Likely due to prolonged usage of high dose pressors during events of shock. -Bilateral upper extremity duplex US (01/03) showed no occlusive arterial disease. Plan: -Per general surgery, continue to monitor. #Acute respiratory failure with Hypoxia -Resolved #2/2 Severe Metabolic acidosis - Resolved -Patient discontinued intubation on 01/04 #Thrombocytopenia- Resolved #Hyperglycemia- Resolved #Constipation- Resolved Disposition: Tele Diet: Consistent Carbohydrate GI prophylaxis: IV protonix DVT prophylaxis:Eliquis 5 BID Code: DNR Assessment and plan discussed with my attending physician Dr. Denzel Avelar (PGY-1) - Internal medicine resident Attending Provider Attestation/Addendum I reviewed labs, imaging, EKG, home medications and prior available records. Face to face evaluation was performed by me. I have personally examined the patient and discussed assessment and plan with the IM team. I reviewed the resident note and agree with the plan with exceptions as below. Left lower extremity cellulitis, secondary to group A streptococcus infection Atrial fibrillation with controlled ventricular rhythm YOU, resolved Acute hypoxic respiratory failure, resolved Insulin-dependent diabetes mellitus Chronic anemia Had an episode of hypoxia which resolved Finished a course of antibiotics Requested reevaluation by surgery: No indication for debridement Continue wound care Continue amiodarone and Eliquis Continue long-acting insulin plus sliding scale insulin. Monitor fingersticks Hemoglobin is slowly downtrending. No signs of active bleeding. Monitor [facility] LTAC declined. [employer] worker is working on SNF placement
--- NOTE | 2025-01-12 09:38 | PC.WOUND ---
Spoke with Dr. Hines regarding BLE skin necrotic sloughing with foul smelling drainage with lyphedema. No recommendation for surgical intervention at this time.
[2025-01-12] MEDS: CLOTRIMAZOLE CR 1% 30 GM TUBE TOP ×2 (09:46→22:03)
[2025-01-12] MEDS: POLYETHYLENE GLYCOL 17 GM PACKET PO (09:47)
[2025-01-12] MEDS: SOD HYPOCHLORITE 1/4 STR 473 ML BTL IRRIG ×2 (09:47→22:02)
[2025-01-12] MEDS: DOCUSATE SOD LIQD 100 MG/10 ML UDC PO ×2 (09:47→22:00)
[2025-01-12] MEDS: ASCORBIC ACID 250 MG TABLET 500 MG PO ×2 (09:48→22:00)
[2025-01-12] MEDS: ZINC SULFATE 220 MG CAPSULE PO (09:49)
[2025-01-12] MEDS: MULTIVITAMINS TABLET 1 TAB PO (09:49)
[2025-01-12] MEDS: APIXABAN 2.5 MG TABLET 5 MG PO ×2 (09:49→22:00)
[2025-01-12] MEDS: AMIODARONE HCL 200 MG TABLET PO ×2 (09:49→22:00)
[2025-01-12] MEDS: INSULIN DEGLUDEC 5 UNIT/0.05 ML (PER 5 UNITS) 25 UNIT SC (09:52)
--- NOTE | 2025-01-12 10:25 | PC.SS ---
SS has attempted to contact Ruth from patient's health insurance but was only able to leave voicemail. Gabby from [facility] has submitted for insurance authorization yesterday.
--- NOTE | 2025-01-12 11:37 | ESPR_ITS ---
Documentation for date of: 01/12/25 Subjective Subjective Interval history: Patient was seen and assessed at bedside. No new complaints, denies any chest pain, shortness of breath, palpitations. Blood pressure 137/67, heart rate in 70s. Continues to be in sinus rhythm on telemetry. Hemoglobin stable 8.4 (from 7.9). Potassium 4.1, magnesium 2.1, repleted. Continue amiodarone 200 mg twice daily as well as Eliquis 5 mg twice daily as hemoglobin has improved. Exam Vital Signs Temp Pulse Resp BP Pulse Ox O2 Del Method O2 Flow Rate 97.7 F 72 16 136/76 H 97 Nasal Cannula 1.5 01/12/25 11:21 01/12/25 11:21 01/12/25 11:21 01/12/25 11:21 01/12/25 11:21 01/12/25 11:21 01/12/25 11:21 FiO2 78 01/08/25 20:01 Narrative Exam Physical Exam General: Awake and in no acute distress. Able to answer questions appropriately. Morbidly obese female. Weak voice s/p extubation. HEENT: Normocephalic, atraumatic, mucous membranes moist. Dried blood on philtrum. Heart: Regular rate and rhythm, normal S1 and S2, no murmurs. Lungs: Congestion upper airways. Decreased breath sounds due to large body habitus. Abdomen: Soft, obese, nondistended, nontender, positive bowel sounds. No guarding or rebound tenderness. Neurologic: Alert and oriented x3, no gross neurological deficit, and patient able to move all 4 extremities. Extremities: Severe hyperkeratotic changes bilaterally. Bullae ruptured and healing well, wounds have been dressed. Cellulites appears to be improving, withdrawing from marked borders. Objective Labs 01/12/25 05:36 01/12/25 05:36 Labs: Laboratory Results - last 24 hr 12/29/24 01/12/25 10:16 05:36 WBC 5.9 RBC 3.00 L Hgb 8.4 L Hct 26.6 L MCV 89 MCH 28.0 MCHC 31.6 RDW Std Deviation 58.3 H Plt Count 188 D Neut % (Auto) 76 Lymph % (Auto) 12 [place] % (Auto) 10 Eos % (Auto) 1 Baso % (Auto) 1 Neut # (Auto) 4.5 Lymph # (Auto) 0.7 L [place] # (Auto) 0.6 Eos # (Auto) 0.0 Baso # (Auto) 0.0 Immature Gran # (Auto) 0.06 H Absolute Nucleated RBC 0.00 Immature Gran % 1 H Nucleated RBC % 0 Sodium 142 Potassium 4.1 D Chloride 105 Carbon Dioxide 26.5 Anion Gap 11 BUN 14 Creatinine 0.5 L Estim Creat Clear Calc 176.3 eGFR > 60 BUN/Creatinine Ratio 28 H Glucose 121 H Calculated Osmolality 284 Calcium 8.5 Corrected Calcium 9.5 Phosphorus 4.4 Magnesium 1.9 Total Bilirubin 1.0 AST 22 ALT 26 Alkaline Phosphatase 127 H D Total Protein 6.2 Albumin 2.8 L Globulin 3.4 Albumin/Globulin Ratio 0.8 L Crossmatch See Detail ABG Interpretation ABG results: 12/22/24 12/22/24 12/23/24 16:49 23:40 13:05 ABG pH 7.39 7.29 L D ABG pCO2 33 37 ABG pO2 60 L 73 L ABG HCO3 20 18 L ABG O2 Saturation 92 94 ABG Base Excess -5 L -8 L VBG pH 7.35 VBG pCO2 37 VBG pO2 27 VBG Base Excess -5 L 12/24/24 12/24/24 12/24/24 08:54 17:12 17:19 ABG pH 7.25 L 7.16 L* ABG pCO2 34 36 ABG pO2 166 H D 127 H D ABG HCO3 15 L 13 L ABG O2 Saturation 100 H 99 H ABG Base Excess -11 L -15 L VBG pH 7.12 L VBG pCO2 42 VBG pO2 44 VBG Base Excess -15 L 12/24/24 12/24/24 12/25/24 19:45 22:40 04:47 ABG pH 7.10 L* 7.21 L D 7.36 D ABG pCO2 50 H D 38 D 37 ABG pO2 249 H D 249 H 191 H D ABG HCO3 15 L 15 L 21 ABG O2 Saturation 100 H 100 H 100 H ABG Base Excess -14 L -12 L -4 L VBG pH VBG pCO2 VBG pO2 VBG Base Excess 12/25/24 12/25/24 12/26/24 15:59 19:55 04:10 ABG pH 7.41 7.41 7.36 ABG pCO2 37 39 37 ABG pO2 128 H D 123 H 99 D ABG HCO3 23 24 21 ABG O2 Saturation 100 H 99 H 98 ABG Base Excess -1 0 -4 L VBG pH VBG pCO2 VBG pO2 VBG Base Excess 12/27/24 12/27/24 12/28/24 04:08 09:45 04:14 ABG pH 7.47 H D 7.42 7.39 ABG pCO2 36 41 45 ABG pO2 82 L 97 114 H ABG HCO3 26 27 H 27 H ABG O2 Saturation 98 99 H 99 H ABG Base Excess 2 2 2 VBG pH VBG pCO2 VBG pO2 VBG Base Excess 12/29/24 12/30/24 12/31/24 04:30 04:50 04:20 ABG pH 7.38 7.37 7.39 ABG pCO2 46 47 45 ABG pO2 109 H 121 H 83 D ABG HCO3 27 H 27 H 27 H ABG O2 Saturation 99 H 99 H 97 ABG Base Excess 1 1 2 VBG pH VBG pCO2 VBG pO2 VBG Base Excess 01/01/25 01/02/25 01/03/25 04:38 04:13 04:52 ABG pH 7.41 7.43 7.47 H ABG pCO2 47 45 43 ABG pO2 100 92 131 H D ABG HCO3 30 H 29 H 31 H ABG O2 Saturation 99 H 99 H 100 H ABG Base Excess 5 H 4 H 7 H VBG pH VBG pCO2 VBG pO2 VBG Base Excess 01/04/25 09:00 ABG pH 7.48 H ABG pCO2 45 ABG pO2 74 L D ABG HCO3 33 H ABG O2 Saturation 94 ABG Base Excess 8 H VBG pH VBG pCO2 VBG pO2 VBG Base Excess Quality Measures Quality Measures VTE prophylaxis Assessment & Plan Assessment Current Active Medications: Generic Name Dose Route Start Last Admin Trade Name Freq PRN Reason Stop Dose Admin Albuterol/Ipratropium 3 ml 12/23/24 09:36 Albuterol/Ipratropium (Duoneb) Rt Ginny 3 Ml Nebu INH 01/22/25 07:44 Q8HRRT PRN wheezing Amiodarone HCl 200 mg 01/07/25 09:00 01/12/25 09:49 Amiodarone Hcl 200 Mg Tablet PO 02/06/25 08:59 200 mg BID TRACY Administration Apixaban 5 mg 01/08/25 21:00 01/12/25 09:49 Apixaban 2.5 Mg Tablet PO 02/07/25 20:59 5 mg BID TRACY Administration Artificial Tears 0 drop 01/08/25 14:40 01/08/25 15:25 Artificial Tears 225 Drop/15 Ml Btl BOTH EYES 02/07/25 14:39 1 applicatio PRN PRN Administration TO KEEP EYES MOIST Ascorbic Acid 500 mg 01/07/25 21:00 01/12/25 09:48 Ascorbic Acid 250 Mg Tablet PO 02/06/25 20:59 500 mg BID TRACY Administration Clotrimazole 0 gm 12/23/24 09:00 01/12/25 09:46 Clotrimazole Cr 1% 30 Gm Tube TOP 01/22/25 08:59 1 applicatio BID TRACY Administration Dextrose 25 ml 12/22/24 17:09 12/25/24 23:07 Dextrose 50%-Water Inj 50 Ml Syringe IV 01/21/25 17:08 25 ml Q15MIN PRN Administration BG 50-70 responsive npo pt Dextrose 50 ml 12/22/24 17:09 12/25/24 14:03 Dextrose 50%-Water Inj 50 Ml Syringe IV 01/21/25 17:08 50 ml Q15MIN PRN Administration BG <50 OR BG <70 & pt unresponsive Docusate Sodium 100 mg 01/08/25 21:00 01/12/25 09:47 Docusate Sod Liqd 100 Mg/10 Ml Udc PO 02/07/25 20:59 100 mg BID TRACY Administration Protocol Glucagon 1 mg 12/22/24 17:09 Glucagon Inj 1 Mg Vial IM Q15MIN PRN BG <70, and no IV access Insulin Degludec 25 unit 01/03/25 09:00 01/12/25 09:52 Insulin Degludec 5 Unit/0.05 Ml (Per 5 Units) SC 02/02/25 08:59 25 unit QDAY TRACY Administration Insulin Human Lispro 0 unit 01/07/25 21:00 01/12/25 07:43 Insulin Lispro (Admelog) 1 Unit/0.01 Ml Unit SC 02/06/25 20:59 Not Given ACHS [facility] Protocol Multivitamins 1 tab 01/08/25 09:00 01/12/25 09:49 Multivitamins Tablet PO 02/07/25 08:59 1 tab QDAY TRACY Administration Ondansetron HCl 4 mg 12/22/24 17:09 Ondansetron Inj 2 Mg/Ml Inj 2 Ml IVP 01/21/25 17:08 Q6H PRN NAUSEA OR VOMITING Protocol Polyethylene Glycol 17 gm 01/07/25 10:00 01/12/25 09:47 Polyethylene Glycol 17 Gm Packet PO 02/06/25 09:59 17 gm QDAY TRACY Administration Sennosides 1 tab 01/07/25 10:00 01/12/25 09:49 Senna Tablet PO 02/06/25 09:59 1 tab QDAY TRACY Administration Protocol Sodium Hypochlorite 473 ml 01/07/25 21:00 01/12/25 09:47 Sod Hypochlorite 1/4 Str 473 Ml Btl IRRIG 02/06/25 20:59 1 appln BID TRACY Administration Zinc Sulfate 220 mg 01/08/25 09:00 01/12/25 09:49 Zinc Sulfate 220 Mg Capsule PO 02/21/25 08:59 220 mg QDAY TRACY Administration Plan Patient is a 54-year-old female with past medical history of IDDM2, bilateral lower limb lymphedema, lipedema, asthma, epilepsy, morbid obesity, wheelchair- bound for 9 years, was brought to the ED on 12/22/24 for left lower extremity pain and clear cirrhosis fluid oozing. Patient was admitted to the ICU for distributive shock. Cardiology team was consulted because of new onset A-fib with RVR and newly diagnosed CHF. #Newly diagnosed HFrEF (40-45%, 11/2024) #New onset A-fib with RVR likely induced by shock state #Streptococcus pyogenes bacteremia 2/ LLE cellulitis Patient presented with sepsis secondary to left leg cellulitis, her condition worsened to distributive shock. During her stay she developed A-fib with RVR, with no known hx of afib, we started the patient on amiodarone drip. Even though her body habitus echo was done and showed ejection fraction of 40 to 45%. With normal RV function. BNP was 204 which most likely skewed by patient obesity. Troponin was negative. 12/22/24 Echo showed Over all poor images due to body habitus and technically difficult study. Normal left ventricular size and function.Stage I diastolic dysfunction. Estimated ejection fraction is 40-45%. Normal right ventricular size and function. RVSP 39 mm Hg with RAP 8. Mild pulmonary HTN Trace MR and Mild TR. TDS due to patient morbid and laying on supine view, couldn't move. (patient had open wounds under breast) 12/25/2024 patient was started on CRRT due to worsening lactic acidosis and kidney function, blood culture growing Streptococcus pyogenes. 12/27/2024, Amiodrine drip was stopped by the primary team as the patient converted to sinus rhythm. Patient was having tachycardia heart rate of 113 however it was regular sinus. 12/31/24, EKG showed atrial flutter with RVR with 2:1 AV block. Restarted on amiodarone drip 0.5 mg/min around 1PM however patient continues to be in afib w RVR. 01/01/25, continues to be in atrial flutter with RVR with 2: 1 AV block. QTc noted to be 556 on EKG however taking consideration the QRS is widened, QTc is actually likely around 480 calculated by [facility] formula (HR 135, QT interval 8 boxes). Her BUN is elevated at 42 as well as hemoglobin is dropping down over the last couple of days which is contributing to the RVR. Patient mostly has upper GI bleed mostly secondary to oozing of blood from the possible stress- induced gastritis. Recommended primary team to obtain stool guaiac has been GI consult. Discussed this with the critical care attending 01/02/25 -Still continues to be in flutter with variable block and heart rate is better controlled patient continues to be sedated and intubated. Recommend to continue amiodarone drip at 1 mg per minute until patient is able to take oral medications removed 2.7 L during dialysis yesterday. Hemoglobin is still lower at 6.9 today. Primary team planning to transfer the patient to 2 units of PRBC and GI team has been consulted this morning for further evaluation. 01/04/2025?patient rhythm controlled on amiodarone drip. Appears to be in sinus tachycardia on telemetry. Heart rate also improved significantly, now in low 90s to 110s. Likely improved secondary to blood transfusions. See anemia workup by GI below. Plan - Amiodarone 200 mg twice daily - Resume Eliquis 5 mg BID as Hgb improved - Recommend starting metopropol tartrate 12.5mg q8hr if BP and HR permit. Will continue to work towards GDMT management as tolerated. ? Due to patient condition no invasive cardiac procedure will be done at this time ? Strict in and out ? Keep potassium and magnesium above 4 and 2 respectively within normal range. This will also help decrease QTc. #Normocytic anemia #Concern for acute GI bleed from stress induced gastritis Hgb downtrending during admission, note drop from 9.7 on 12/29 to 7.1 on 12/30. S/p 1 unit pRBC on 01/01 for Hgb 7.4. Hgb dropped to 6.9. 01/02/2025: Status post 2 units PRBC. Endoscopy showed esophagitis and gastritis characterized by erythema. GI does not believe so there is a drop in hemoglobin hematocrit was due to upper GI bleed. Colonoscopy 01/04/25: Showed internal hemorrhoids, entire colon is normal. Iron panel 01/05/2025: Iron, TIBC, iron saturation, unsaturated iron binding all low. - Hgb now stable, likely due to resolution of shock, however continues to be anemic. -Will defer anemia management to primary team. ? Continue to monitor hemoglobin #Distributive shock most likely secondary to sepsis, resolved #Sepsis secondary to left leg cellulitis #Toxic shock syndrome #Lower extremity lymphedema S/p IgG immunoglobulin Plan ? Primary team switched from clindamycin and meropenem, completed 10-day course with 2 days of IV CFX. ? Stable off norepinephrine drip and vasopressin for distributive shock, only on PRN. ?Off sedation and extubated #History of seizure disorder Patient on antiseizure meds #History of COPD Supplemental oxygen, BiPAP as needed, DuoNebs #Elevated bilirubin, elevated AST, hypoalbuminemia Secondary to toxic shock syndrome versus septic shock Follow primary team recommendations #Lactic acidosis improving s/p CRRT #YOU #Non-anion gap metabolic acidosis Thank you for your consultation, please do not hesitate to reach out if you have any question or concern Patient plan of care was discussed with the attending physician, Dr. Chapa. Obdulia Evans, PGY-1 Attending Provider Attestation/Addendum I have personally seen and examined the patient separately on the above date of service and discussed the plan of care with the resident. I reviewed the resident Dr. Obdulia Evans consultation progress note and agree with the resident findings and plan in the note above and have also edited the documentation to reflect my findings and plan. Alex Chapa M.D. Interventional Cardiology
--- NOTE | 2025-01-12 13:46 | PC.SS ---
SS spoke to Ruth from patient's health insurance who states pt has been approved but is now waiting for their coordinator to verify if [facility] is contracted to generate the authorization.
--- NOTE | 2025-01-12 18:17 | PC.NURSE ---
Spoke with Dr. Gutierrez at 1819 regarding patient having no IV access. Doctor said that patient doesn't need IV access and he will change any orders that require IV access to PO. Will continue to follow care plan.
--- NOTE | 2025-01-12 20:47 | PD.IMPROG ---
Documentation for date of: 01/12/25 Subjective Subjective Interval history: Hemoglobin hematocrit 8.4 and 26.1 Patient called into atrial fibrillation with RVR noted sinus rhythm currently on amiodarone and Eliquis No signs of any active bleeding Exam Vital Signs Temp Pulse Resp BP Pulse Ox O2 Del Method O2 Flow Rate 97.9 F 77 16 162/86 H 97 Room Air 1.5 01/12/25 19:54 01/12/25 19:54 01/12/25 19:54 01/12/25 19:54 01/12/25 19:54 01/12/25 19:54 01/12/25 11:21 FiO2 78 01/08/25 20:01 Objective Labs 01/12/25 05:36 01/12/25 05:36 Labs: Laboratory Results - last 24 hr 12/29/24 01/12/25 10:16 05:36 WBC 5.9 RBC 3.00 L Hgb 8.4 L Hct 26.6 L MCV 89 MCH 28.0 MCHC 31.6 RDW Std Deviation 58.3 H Plt Count 188 D Neut % (Auto) 76 Lymph % (Auto) 12 [place] % (Auto) 10 Eos % (Auto) 1 Baso % (Auto) 1 Neut # (Auto) 4.5 Lymph # (Auto) 0.7 L [place] # (Auto) 0.6 Eos # (Auto) 0.0 Baso # (Auto) 0.0 Immature Gran # (Auto) 0.06 H Absolute Nucleated RBC 0.00 Immature Gran % 1 H Nucleated RBC % 0 Sodium 142 Potassium 4.1 D Chloride 105 Carbon Dioxide 26.5 Anion Gap 11 BUN 14 Creatinine 0.5 L Estim Creat Clear Calc 176.3 eGFR > 60 BUN/Creatinine Ratio 28 H Glucose 121 H Calculated Osmolality 284 Calcium 8.5 Corrected Calcium 9.5 Phosphorus 4.4 Magnesium 1.9 Total Bilirubin 1.0 AST 22 ALT 26 Alkaline Phosphatase 127 H D Total Protein 6.2 Albumin 2.8 L Globulin 3.4 Albumin/Globulin Ratio 0.8 L Crossmatch See Detail Impressions Impression: Anemia multifactorial hemoglobin hematocrit relatively stable New onset atrial fibrillation with RVR on amiodarone and Eliquis Congestive heart failure improving ABG Interpretation ABG results: 12/22/24 12/22/24 12/23/24 16:49 23:40 13:05 ABG pH 7.39 7.29 L D ABG pCO2 33 37 ABG pO2 60 L 73 L ABG HCO3 20 18 L ABG O2 Saturation 92 94 ABG Base Excess -5 L -8 L VBG pH 7.35 VBG pCO2 37 VBG pO2 27 VBG Base Excess -5 L 12/24/24 12/24/24 12/24/24 08:54 17:12 17:19 ABG pH 7.25 L 7.16 L* ABG pCO2 34 36 ABG pO2 166 H D 127 H D ABG HCO3 15 L 13 L ABG O2 Saturation 100 H 99 H ABG Base Excess -11 L -15 L VBG pH 7.12 L VBG pCO2 42 VBG pO2 44 VBG Base Excess -15 L 12/24/24 12/24/24 12/25/24 19:45 22:40 04:47 ABG pH 7.10 L* 7.21 L D 7.36 D ABG pCO2 50 H D 38 D 37 ABG pO2 249 H D 249 H 191 H D ABG HCO3 15 L 15 L 21 ABG O2 Saturation 100 H 100 H 100 H ABG Base Excess -14 L -12 L -4 L VBG pH VBG pCO2 VBG pO2 VBG Base Excess 12/25/24 12/25/24 12/26/24 15:59 19:55 04:10 ABG pH 7.41 7.41 7.36 ABG pCO2 37 39 37 ABG pO2 128 H D 123 H 99 D ABG HCO3 23 24 21 ABG O2 Saturation 100 H 99 H 98 ABG Base Excess -1 0 -4 L VBG pH VBG pCO2 VBG pO2 VBG Base Excess 12/27/24 12/27/24 12/28/24 04:08 09:45 04:14 ABG pH 7.47 H D 7.42 7.39 ABG pCO2 36 41 45 ABG pO2 82 L 97 114 H ABG HCO3 26 27 H 27 H ABG O2 Saturation 98 99 H 99 H ABG Base Excess 2 2 2 VBG pH VBG pCO2 VBG pO2 VBG Base Excess 12/29/24 12/30/24 12/31/24 04:30 04:50 04:20 ABG pH 7.38 7.37 7.39 ABG pCO2 46 47 45 ABG pO2 109 H 121 H 83 D ABG HCO3 27 H 27 H 27 H ABG O2 Saturation 99 H 99 H 97 ABG Base Excess 1 1 2 VBG pH VBG pCO2 VBG pO2 VBG Base Excess 01/01/25 01/02/25 01/03/25 04:38 04:13 04:52 ABG pH 7.41 7.43 7.47 H ABG pCO2 47 45 43 ABG pO2 100 92 131 H D ABG HCO3 30 H 29 H 31 H ABG O2 Saturation 99 H 99 H 100 H ABG Base Excess 5 H 4 H 7 H VBG pH VBG pCO2 VBG pO2 VBG Base Excess 01/04/25 09:00 ABG pH 7.48 H ABG pCO2 45 ABG pO2 74 L D ABG HCO3 33 H ABG O2 Saturation 94 ABG Base Excess 8 H VBG pH VBG pCO2 VBG pO2 VBG Base Excess Assessment & Plan A&P Narrative # Drop in hemoglobin hematocrit etiology uncertain possible occult GI bleeding Consent will be obtained for possible fiberoptic esophagogastroduodenoscopy with possible biopsy therapeutic intervention under intravenous moderate sedation if negative will consider a fiberoptic colonoscopy After GoLytely prep # Other medical problems include metabolic encephalopathy Diabetes mellitus type 2 Atrial flutter/fibrillation on amiodarone drip Necrosis of the distal toes Mechanically ventilated Thank you very much for the opportunity to participate in the care of this patient Time Spent With Patient Time: Total time spent is greater than 50% in coordination of care (as documented) at patient's floor/unit and/or counseling patient: PROCEDURES: Arterial Line Size (Gauge): 20
[2025-01-13] VITALS (7 sets, daily range): BP systolic 136–162; BP diastolic 70–93; PULSE 63–98; RESP 16–18; TEMP 36.3–36.6; O2SAT 98–100
--- NOTE | 2025-01-13 08:53 | ESPR_ITS ---
Documentation for date of: 01/13/25 Subjective Subjective Interval history: Patient seen and assessed at bedside. No new complaints this morning, denies any chest pain, shortness of breath, palpitations. Sinus rhythm on telemetry. BP 136/70 this morning. Patient no longer has IV access as patient is just pending SNF placement. No labs this morning. Continue amiodarone 200 mg twice daily and Eliquis 5 mg twice daily. Exam Vital Signs Temp Pulse Resp BP Pulse Ox O2 Del Method O2 Flow Rate 97.4 F 98 18 157/76 H 98 Room Air 2 01/13/25 07:47 01/13/25 07:47 01/13/25 07:47 01/13/25 07:47 01/13/25 07:47 01/13/25 07:47 01/13/25 00:00 FiO2 78 01/13/25 00:00 Narrative Exam Physical Exam General: Awake and in no acute distress. Able to answer questions appropriately. Morbidly obese female. Weak voice s/p extubation. HEENT: Normocephalic, atraumatic, mucous membranes moist. Dried blood on philtrum. Heart: Regular rate and rhythm, normal S1 and S2, no murmurs. Lungs: Congestion upper airways. Decreased breath sounds due to large body habitus. Abdomen: Soft, obese, nondistended, nontender, positive bowel sounds. No guarding or rebound tenderness. Neurologic: Alert and oriented x3, no gross neurological deficit, and patient able to move all 4 extremities. Extremities: Severe hyperkeratotic changes bilaterally. Cellulites appears to be improving, withdrawing from marked borders. Objective Labs 01/12/25 05:36 01/12/25 05:36 ABG Interpretation ABG results: 12/22/24 12/22/24 12/23/24 16:49 23:40 13:05 ABG pH 7.39 7.29 L D ABG pCO2 33 37 ABG pO2 60 L 73 L ABG HCO3 20 18 L ABG O2 Saturation 92 94 ABG Base Excess -5 L -8 L VBG pH 7.35 VBG pCO2 37 VBG pO2 27 VBG Base Excess -5 L 12/24/24 12/24/24 12/24/24 08:54 17:12 17:19 ABG pH 7.25 L 7.16 L* ABG pCO2 34 36 ABG pO2 166 H D 127 H D ABG HCO3 15 L 13 L ABG O2 Saturation 100 H 99 H ABG Base Excess -11 L -15 L VBG pH 7.12 L VBG pCO2 42 VBG pO2 44 VBG Base Excess -15 L 12/24/24 12/24/24 12/25/24 19:45 22:40 04:47 ABG pH 7.10 L* 7.21 L D 7.36 D ABG pCO2 50 H D 38 D 37 ABG pO2 249 H D 249 H 191 H D ABG HCO3 15 L 15 L 21 ABG O2 Saturation 100 H 100 H 100 H ABG Base Excess -14 L -12 L -4 L VBG pH VBG pCO2 VBG pO2 VBG Base Excess 12/25/24 12/25/24 12/26/24 15:59 19:55 04:10 ABG pH 7.41 7.41 7.36 ABG pCO2 37 39 37 ABG pO2 128 H D 123 H 99 D ABG HCO3 23 24 21 ABG O2 Saturation 100 H 99 H 98 ABG Base Excess -1 0 -4 L VBG pH VBG pCO2 VBG pO2 VBG Base Excess 12/27/24 12/27/24 12/28/24 04:08 09:45 04:14 ABG pH 7.47 H D 7.42 7.39 ABG pCO2 36 41 45 ABG pO2 82 L 97 114 H ABG HCO3 26 27 H 27 H ABG O2 Saturation 98 99 H 99 H ABG Base Excess 2 2 2 VBG pH VBG pCO2 VBG pO2 VBG Base Excess 12/29/24 12/30/24 12/31/24 04:30 04:50 04:20 ABG pH 7.38 7.37 7.39 ABG pCO2 46 47 45 ABG pO2 109 H 121 H 83 D ABG HCO3 27 H 27 H 27 H ABG O2 Saturation 99 H 99 H 97 ABG Base Excess 1 1 2 VBG pH VBG pCO2 VBG pO2 VBG Base Excess 01/01/25 01/02/25 01/03/25 04:38 04:13 04:52 ABG pH 7.41 7.43 7.47 H ABG pCO2 47 45 43 ABG pO2 100 92 131 H D ABG HCO3 30 H 29 H 31 H ABG O2 Saturation 99 H 99 H 100 H ABG Base Excess 5 H 4 H 7 H VBG pH VBG pCO2 VBG pO2 VBG Base Excess 01/04/25 09:00 ABG pH 7.48 H ABG pCO2 45 ABG pO2 74 L D ABG HCO3 33 H ABG O2 Saturation 94 ABG Base Excess 8 H VBG pH VBG pCO2 VBG pO2 VBG Base Excess Quality Measures Quality Measures VTE prophylaxis Assessment & Plan Assessment Current Active Medications: Generic Name Dose Route Start Last Admin Trade Name Freq PRN Reason Stop Dose Admin Albuterol/Ipratropium 3 ml 12/23/24 09:36 Albuterol/Ipratropium (Duoneb) Rt Ginny 3 Ml Nebu INH 01/22/25 07:44 Q8HRRT PRN wheezing Amiodarone HCl 200 mg 01/07/25 09:00 01/12/25 22:00 Amiodarone Hcl 200 Mg Tablet PO 02/06/25 08:59 200 mg BID TRACY Administration Apixaban 5 mg 01/08/25 21:00 01/12/25 22:00 Apixaban 2.5 Mg Tablet PO 02/07/25 20:59 5 mg BID TRACY Administration Artificial Tears 0 drop 01/08/25 14:40 01/08/25 15:25 Artificial Tears 225 Drop/15 Ml Btl BOTH EYES 02/07/25 14:39 1 applicatio PRN PRN Administration TO KEEP EYES MOIST Ascorbic Acid 500 mg 01/07/25 21:00 01/12/25 22:00 Ascorbic Acid 250 Mg Tablet PO 02/06/25 20:59 500 mg BID TRACY Administration Clotrimazole 0 gm 12/23/24 09:00 01/12/25 22:03 Clotrimazole Cr 1% 30 Gm Tube TOP 01/22/25 08:59 1 applicatio BID TRACY Administration Dextrose 25 ml 12/22/24 17:09 12/25/24 23:07 Dextrose 50%-Water Inj 50 Ml Syringe IV 01/21/25 17:08 25 ml Q15MIN PRN Administration BG 50-70 responsive npo pt Dextrose 50 ml 12/22/24 17:09 12/25/24 14:03 Dextrose 50%-Water Inj 50 Ml Syringe IV 01/21/25 17:08 50 ml Q15MIN PRN Administration BG <50 OR BG <70 & pt unresponsive Docusate Sodium 100 mg 01/08/25:00 01/12/25 22:00 Docusate Sod Liqd 100 Mg/10 Ml Udc PO 02/07/25 20:59 100 mg BID TRACY Administration Protocol Glucagon 1 mg 12/22/24 17:09 Glucagon Inj 1 Mg Vial IM Q15MIN PRN BG <70, and no IV access Insulin Degludec 25 unit 01/03/25 09:00 01/12/25 09:52 Insulin Degludec 5 Unit/0.05 Ml (Per 5 Units) SC 02/02/25 08:59 25 unit QDAY TRACY Administration Insulin Human Lispro 0 unit 01/07/25 21:00 01/13/25 08:03 Insulin Lispro (Admelog) 1 Unit/0.01 Ml Unit SC 02/06/25 20:59 Not Given ACHS TRACY Protocol Multivitamins 1 tab 01/08/25 09:00 01/12/25 09:49 Multivitamins Tablet PO 02/07/25 08:59 1 tab QDAY TRACY Administration Neomycin/Polymyxin/Bacitracin 0 gm 01/12/25 22:00 01/13/25 05:34 Mehul/Poly/Ethan (Neosporin) Oint 15 Gm Tube TOP 01/19/25 21:59 1 appln TID TRACY Administration Ondansetron HCl 4 mg 12/22/24 17:09 Ondansetron Inj 2 Mg/Ml Inj 2 Ml IVP 01/21/25 17:08 Q6H PRN NAUSEA OR VOMITING Protocol Polyethylene Glycol 17 gm 01/07/25 10:00 01/12/25 09:47 Polyethylene Glycol 17 Gm Packet PO 02/06/25 09:59 17 gm QDAY TRACY Administration Sennosides 1 tab 01/07/25 10:00 01/12/25 09:49 Senna Tablet PO 02/06/25 09:59 1 tab QDAY TRACY Administration Protocol Sodium Hypochlorite 473 ml 01/07/25 21:00 01/12/25 22:02 Sod Hypochlorite 1/4 Str 473 Ml Btl IRRIG 02/06/25 20:59 1 appln BID TRACY Administration Zinc Sulfate 220 mg 01/08/25 09:00 01/12/25 09:49 Zinc Sulfate 220 Mg Capsule PO 02/21/25 08:59 220 mg QDAY TRACY Administration Plan Patient is a 54-year-old female with past medical history of IDDM2, bilateral lower limb lymphedema, lipedema, asthma, epilepsy, morbid obesity, wheelchair- bound for 9 years, was brought to the ED on 12/22/24 for left lower extremity pain and clear cirrhosis fluid oozing. Patient was admitted to the ICU for distributive shock. Cardiology team was consulted because of new onset A-fib with RVR and newly diagnosed CHF. #Newly diagnosed HFrEF (40-45%, 11/2024) #New onset A-fib with RVR likely induced by shock state #Streptococcus pyogenes bacteremia 2/ LLE cellulitis Patient presented with sepsis secondary to left leg cellulitis, her condition worsened to distributive shock. During her stay she developed A-fib with RVR, with no known hx of afib, we started the patient on amiodarone drip. Even though her body habitus echo was done and showed ejection fraction of 40 to 45%. With normal RV function. BNP was 204 which most likely skewed by patient obesity. Troponin was negative. 12/22/24 Echo showed Over all poor images due to body habitus and technically difficult study. Normal left ventricular size and function.Stage I diastolic dysfunction. Estimated ejection fraction is 40-45%. Normal right ventricular size and function. RVSP 39 mm Hg with RAP 8. Mild pulmonary HTN Trace MR and Mild TR. TDS due to patient morbid and laying on supine view, couldn't move. (patient had open wounds under breast) 12/25/2024 patient was started on CRRT due to worsening lactic acidosis and kidney function, blood culture growing Streptococcus pyogenes. 12/27/2024, Amiodrine drip was stopped by the primary team as the patient converted to sinus rhythm. Patient was having tachycardia heart rate of 113 however it was regular sinus. 12/31/24, EKG showed atrial flutter with RVR with 2:1 AV block. Restarted on amiodarone drip 0.5 mg/min around 1PM however patient continues to be in afib w RVR. 01/01/25, continues to be in atrial flutter with RVR with 2: 1 AV block. QTc noted to be 556 on EKG however taking consideration the QRS is widened, QTc is actually likely around 480 calculated by [facility] formula (HR 135, QT interval 8 boxes). Her BUN is elevated at 42 as well as hemoglobin is dropping down over the last couple of days which is contributing to the RVR. Patient mostly has upper GI bleed mostly secondary to oozing of blood from the possible stress- induced gastritis. Recommended primary team to obtain stool guaiac has been GI consult. Discussed this with the critical care attending 01/02/25 -Still continues to be in flutter with variable block and heart rate is better controlled patient continues to be sedated and intubated. Recommend to continue amiodarone drip at 1 mg per minute until patient is able to take oral medications removed 2.7 L during dialysis yesterday. Hemoglobin is still lower at 6.9 today. Primary team planning to transfer the patient to 2 units of PRBC and GI team has been consulted this morning for further evaluation. 01/04/2025?patient rhythm controlled on amiodarone drip. Appears to be in sinus tachycardia on telemetry. Heart rate also improved significantly, now in low 90s to 110s. Likely improved secondary to blood transfusions. See anemia workup by GI below. Plan - Amiodarone 200 mg twice daily - Eliquis 5 mg BID as Hgb improved - Recommend starting metopropol tartrate 12.5mg q8hr if BP and HR permit. Will continue to work towards GDMT management as tolerated. ? Due to patient condition no invasive cardiac procedure will be done at this time ? Strict in and out ? Keep potassium and magnesium above 4 and 2 respectively within normal range. This will also help decrease QTc. #Normocytic anemia #Concern for acute GI bleed from stress induced gastritis Hgb downtrending during admission, note drop from 9.7 on 12/29 to 7.1 on 12/30. S/p 1 unit pRBC on 01/01 for Hgb 7.4. Hgb dropped to 6.9. 01/02/2025: Status post 2 units PRBC. Endoscopy showed esophagitis and gastritis characterized by erythema. GI does not believe so there is a drop in hemoglobin hematocrit was due to upper GI bleed. Colonoscopy 01/04/25: Showed internal hemorrhoids, entire colon is normal. Iron panel 01/05/2025: Iron, TIBC, iron saturation, unsaturated iron binding all low. - Hgb now stable, likely due to resolution of shock, however continues to be anemic. -Will defer anemia management to primary team. ? Continue to monitor hemoglobin #Distributive shock most likely secondary to sepsis, resolved #Sepsis secondary to left leg cellulitis #Toxic shock syndrome #Lower extremity lymphedema S/p IgG immunoglobulin Plan ? Primary team switched from clindamycin and meropenem, completed 10-day course with 2 days of IV CFX. ? Stable off norepinephrine drip and vasopressin for distributive shock, only on PRN. ?Off sedation and extubated #History of seizure disorder Patient on antiseizure meds #History of COPD Supplemental oxygen, BiPAP as needed, DuoNebs #Elevated bilirubin, elevated AST, hypoalbuminemia Secondary to toxic shock syndrome versus septic shock Follow primary team recommendations #Lactic acidosis improving s/p CRRT #YOU #Non-anion gap metabolic acidosis Thank you for your consultation, please do not hesitate to reach out if you have any question or concern Patient plan of care was discussed with the attending physician, Dr. Chapa. Obdulia Evans, PGY-1 Attending Provider Attestation/Addendum I have personally seen and examined the patient separately on the above date of service and discussed the plan of care with the resident. I reviewed the resident Dr. Obdulia Evans consultation progress note and agree with the resident findings and plan in the note above and have also edited the documentation to reflect my findings and plan. Alex Chapa M.D. Interventional Cardiology
[2025-01-13] MEDS: POLYETHYLENE GLYCOL 17 GM PACKET PO (09:00)
[2025-01-13] MEDS: CLOTRIMAZOLE CR 1% 30 GM TUBE TOP (09:00)
[2025-01-13] MEDS: DOCUSATE SOD LIQD 100 MG/10 ML UDC PO (09:00)
[2025-01-13] MEDS: AMIODARONE HCL 200 MG TABLET PO (09:00)
[2025-01-13] MEDS: ZINC SULFATE 220 MG CAPSULE PO (09:00)
[2025-01-13] MEDS: ASCORBIC ACID 250 MG TABLET 500 MG PO (09:00)
[2025-01-13] MEDS: SOD HYPOCHLORITE 1/4 STR 473 ML BTL IRRIG (09:00)
[2025-01-13] MEDS: MULTIVITAMINS TABLET 1 TAB PO (09:00)
[2025-01-13] MEDS: INSULIN DEGLUDEC 5 UNIT/0.05 ML (PER 5 UNITS) 25 UNIT SC (09:00)
[2025-01-13] MEDS: APIXABAN 2.5 MG TABLET 5 MG PO (09:00)
--- NOTE | 2025-01-13 11:27 | PC.SS ---
SS sent updated clinicals to [facility] via [facility]. SS attempted to setup transport via [employer], pt does not possess transportation coverage. Pt unable to pay OOP for transport. Pt is not on O2 as confirmed with RN, Tasha. [facility] utilized. SS gave information to Naomi at [facility]. Pending ETA.
--- NOTE | 2025-01-13 11:38 | ESPR_ITS ---
Documentation for date of: 01/13/25 Subjective Subjective Interval history: PATIENT was DISCHARGED TODAY, 01/13/2025 Please see my discharge summary note on 01/11/2025 Here are updated Discharge Instructions. Please take amiodarone 200 mg tablet twice a day for atrial fibrillation Please take Eliquis 5 mg by mouth twice a day for atrial fibrillation Take vitamin C, Zinc and multivitamin for nutritional support and wound care along with antibiotic ointment and artificial tears Stop using insulin as your blood sugars are well controlled and your last A1c is 5.6 Continue all other home medications as prescribed Follow-up with director of cardiac cath lab Dr. Chapa to start GDMT for Heart Failure Follow-up with general surgeon Dr. Hines to see if any procedure can be done for your legs Please follow-up with PCP within 1 week of discharge or follow-up at the [facility] [address] [place] [address] Continue physical therapy and wound care at the SNF If your symptoms worsen or if you develop new chest pain, shortness of breath, severe leg pain or bleeding - please come back to the ED immediately. Wound care: 1) IV infiltrate site to right forearm: open to air and monitor. If weeping- cover with allyven dressing daily and PRN for falling off or soiling 2) Deep tissue injury to medial upper back: cleanse with wound cleanser, pat dry, apply skin prep and cover with allyven dressing daily. 3) BLE lymphedema with soft tissue infection including LLE trauma: cleanse well with 1/4 st dakins solution and pat dry well. Cover open areas with xeroform or adaptic gauze. Layer with abd pads. Wrap with bias roll or chip wrap. Change BID and PRN for saturating. 4)Upper lip friction: apply warm wet wash cloth for approx 3-5 minutes, gently removing crustings without causing site to bleed than apply bacitracin ointment TID and PRN Exam Vital Signs Temp Pulse Resp BP Pulse Ox O2 Del Method O2 Flow Rate 97.4 F 98 18 157/76 H 98 Room Air 2 01/13/25 07:47 01/13/25 09:00 01/13/25 07:47 01/13/25 09:00 01/13/25 07:47 01/13/25 07:47 01/13/25 07:30 FiO2 78 01/13/25 00:00 Narrative Exam General: Alert, Morbidly obese, Drowsy Eye: EOMI, normal conjunctiva, no scleral icterus HENT: Normocephalic, dry oral mucosa. Dark red crust over philtrum region. Neck: Supple, non-tender, no JVD, no lymphadenopathy Lungs: Labored respirations, symmetric chest rise, Clear to auscultate bilaterally, No wheezing, rhonchi, crackles Heart: Peripheral pulses intact bilaterally, Regular Rate and Rhythm. Abdomen: Soft, non-tender, non-distended, no palpable masses Musculoskeletal: Bilateral lower extremity erythema extending to thighs reaching towards the hip and torso with yellow crusts on top. Necrotic bilateral toes, right fingers, left middle fingers. Discolored lesion around right buttock. Cold distal extremity, Mild oozing of yellow fluid. Skin: Cold distal extremity. Refer to [facility]. Psychiatric: Cooperative, Awake and alert, Able to communicate verbally. Neuro: Cranial nerves II-XII grossly intact. Strength 1/5 throughout. Limited sensations in distal extremities. Objective Labs 01/12/25 05:36 01/12/25 05:36 ABG Interpretation ABG results: 12/22/24 12/22/24 12/23/24 16:49 23:40 13:05 ABG pH 7.39 7.29 L D ABG pCO2 33 37 ABG pO2 60 L 73 L ABG HCO3 20 18 L ABG O2 Saturation 92 94 ABG Base Excess -5 L -8 L VBG pH 7.35 VBG pCO2 37 VBG pO2 27 VBG Base Excess -5 L 12/24/24 12/24/24 12/24/24 08:54 17:12 17:19 ABG pH 7.25 L 7.16 L* ABG pCO2 34 36 ABG pO2 166 H D 127 H D ABG HCO3 15 L 13 L ABG O2 Saturation 100 H 99 H ABG Base Excess -11 L -15 L VBG pH 7.12 L VBG pCO2 42 VBG pO2 44 VBG Base Excess -15 L 12/24/24 12/24/24 12/25/24 19:45 22:40 04:47 ABG pH 7.10 L* 7.21 L D 7.36 D ABG pCO2 50 H D 38 D 37 ABG pO2 249 H D 249 H 191 H D ABG HCO3 15 L 15 L 21 ABG O2 Saturation 100 H 100 H 100 H ABG Base Excess -14 L -12 L -4 L VBG pH VBG pCO2 VBG pO2 VBG Base Excess 12/25/24 12/25/24 12/26/24 15:59 19:55 04:10 ABG pH 7.41 7.41 7.36 ABG pCO2 37 39 37 ABG pO2 128 H D 123 H 99 D ABG HCO3 23 24 21 ABG O2 Saturation 100 H 99 H 98 ABG Base Excess -1 0 -4 L VBG pH VBG pCO2 VBG pO2 VBG Base Excess 12/27/24 12/27/24 12/28/24 04:08 09:45 04:14 ABG pH 7.47 H D 7.42 7.39 ABG pCO2 36 41 45 ABG pO2 82 L 97 114 H ABG HCO3 26 27 H 27 H ABG O2 Saturation 98 99 H 99 H ABG Base Excess 2 2 2 VBG pH VBG pCO2 VBG pO2 VBG Base Excess 12/29/24 12/30/24 12/31/24 04:30 04:50 04:20 ABG pH 7.38 7.37 7.39 ABG pCO2 46 47 45 ABG pO2 109 H 121 H 83 D ABG HCO3 27 H 27 H 27 H ABG O2 Saturation 99 H 99 H 97 ABG Base Excess 1 1 2 VBG pH VBG pCO2 VBG pO2 VBG Base Excess 01/01/25 01/02/25 01/03/25 04:38 04:13 04:52 ABG pH 7.41 7.43 7.47 H ABG pCO2 47 45 43 ABG pO2 100 92 131 H D ABG HCO3 30 H 29 H 31 H ABG O2 Saturation 99 H 99 H 100 H ABG Base Excess 5 H 4 H 7 H VBG pH VBG pCO2 VBG pO2 VBG Base Excess 01/04/25 09:00 ABG pH 7.48 H ABG pCO2 45 ABG pO2 74 L D ABG HCO3 33 H ABG O2 Saturation 94 ABG Base Excess 8 H VBG pH VBG pCO2 VBG pO2 VBG Base Excess Quality Measures Quality Measures VTE prophylaxis Assessment & Plan Assessment Current Active Medications: Generic Name Dose Route Start Last Admin Trade Name Freq PRN Reason Stop Dose Admin Albuterol/Ipratropium 3 ml 12/23/24 09:36 Albuterol/Ipratropium (Duoneb) Rt Ginny 3 Ml Nebu INH 01/22/25 07:44 Q8HRRT PRN wheezing Amiodarone HCl 200 mg 01/07/25 09:00 01/13/25 09:00 Amiodarone Hcl 200 Mg Tablet PO 02/06/25 08:59 200 mg BID TRACY Administration Apixaban 5 mg 01/08/25 21:00 01/13/25 09:00 Apixaban 2.5 Mg Tablet PO 02/07/25 20:59 5 mg BID TRACY Administration Artificial Tears 0 drop 01/08/25 14:40 01/08/25 15:25 Artificial Tears 225 Drop/15 Ml Btl BOTH EYES 02/07/25 14:39 1 applicatio PRN PRN Administration TO KEEP EYES MOIST Ascorbic Acid 500 mg 01/07/25 21:00 01/13/25 09:00 Ascorbic Acid 250 Mg Tablet PO 02/06/25 20:59 500 mg BID TRACY Administration Clotrimazole 0 gm 12/23/24 09:00 01/13/25 09:00 Clotrimazole Cr 1% 30 Gm Tube TOP 01/22/25 08:59 1 applicatio BID TRACY Administration Dextrose 25 ml 12/22/24 17:09 12/25/24 23:07 Dextrose 50%-Water Inj 50 Ml Syringe IV 01/21/25 17:08 25 ml Q15MIN PRN Administration BG 50-70 responsive npo pt Dextrose 50 ml 12/22/24 17:09 12/25/24 14:03 Dextrose 50%-Water Inj 50 Ml Syringe IV 01/21/25 17:08 50 ml Q15MIN PRN Administration BG <50 OR BG <70 & pt unresponsive Docusate Sodium 100 mg 01/08/25 21:00 01/13/25 09:00 Docusate Sod Liqd 100 Mg/10 Ml Udc PO 02/07/25 20:59 100 mg BID TRACY Administration Protocol Glucagon 1 mg 12/22/24 17:09 Glucagon Inj 1 Mg Vial IM Q15MIN PRN BG <70, and no IV access Insulin Degludec 25 unit 01/03/25 09:00 01/13/25 09:00 Insulin Degludec 5 Unit/0.05 Ml (Per 5 Units) SC 02/02/25 08:59 25 unit QDAY TRACY Administration Insulin Human Lispro 0 unit 01/07/25 21:00 01/13/25 08:03 Insulin Lispro (Admelog) 1 Unit/0.01 Ml Unit SC 02/06/25 20:59 Not Given ACHS TRACY Protocol Multivitamins 1 tab 01/08/25 09:00 01/13/25 09:00 Multivitamins Tablet PO 02/07/25 08:59 1 tab QDAY TRACY Administration Neomycin/Polymyxin/Bacitracin 0 gm 01/12/25 22:00 01/13/25 05:34 Mehul/Poly/Ethan (Neosporin) Oint 15 Gm Tube TOP 01/19/25 21:59 1 appln TID TRACY Administration Ondansetron HCl 4 mg 12/22/24 17:09 Ondansetron Inj 2 Mg/Ml Inj 2 Ml IVP 01/21/25 17:08 Q6H PRN NAUSEA OR VOMITING Protocol Polyethylene Glycol 17 gm 01/07/25 10:00 01/13/25 09:00 Polyethylene Glycol 17 Gm Packet PO 02/06/25 09:59 17 gm QDAY TRACY Administration Sennosides 1 tab 01/07/25 10:00 01/13/25 09:00 Senna Tablet PO 02/06/25 09:59 1 tab QDAY TRACY Administration Protocol Sodium Hypochlorite 473 ml 01/07/25 21:00 01/13/25 09:00 Sod Hypochlorite 1/4 Str 473 Ml Btl IRRIG 02/06/25 20:59 1 appln BID TRACY Administration Zinc Sulfate 220 mg 01/08/25 09:00 01/13/25 09:00 Zinc Sulfate 220 Mg Capsule PO 02/21/25 08:59 220 mg QDAY TRACY Administration Plan 54-year-old female with past medical history of prior TN?, Insulin-dependent type 2 diabetes, lymphedema, lipedema, asthma, epilepsy, morbid obesity, nonambulatory for 9 years, wheelchair-bound presenting to the ED on 12/22 with left lower extremity pain and oozing. Admitted to ICU for management of cellulitis and shock. Patient has been stabilized and has been downgraded to [facility] on 01/05 #Cellulitis 2/2 Streptococcus pyogenes bacteremia ? Resolving #Distributive Shock-Resolving #Lactic acidosis-Resolving #2/2 Toxic Shock Syndrome #Leukocytosis - Resolved #Coagulopathy 2/2 toxic shock syndrome - Resolved -On admission, lactic acid: 7.6, peaked to 10.0 (at 12/26), now down trending to 2.5 -On admission, WBC: 5.8, peaked to 52.9 (at 12/31), now down trending to 7.6 -Blood Cx (12/22/2024): Youssef-sensitive Streptococcus pyogenes (Group A Streptococcus) x2/2 -Likely main etiology of sepsis with toxic shock syndrome. -Timeline of antibiotic regimen given in ICU detailed below: 1. IV vancomycin dosed by pharmacy [12/22-12/25, discontinued due to MRSA(-)] 2. IV clindamycin 600 mg q8HR [12/22-12/30, dc'd due to concern for Drug induced Thrombocytopenia and no longer needed for TSS] 3. IV cefepime 2 gm q12HR [12/22-12/24, discontinued after TSS became favored diagnosis] 4. IV meropenem 1000 mg q8HR [12/24-12/30, dc'd due to possible Drug induced Thrombocytopenia] 5. IV Ceftriaxone 2 g qday [12/30 - 01/01 for total ABX course of 10 days] -Blood Cx (12/28): Coag Negative Staph Plan: -Continue Would care management -Bilateral Above Knee Amputation (AKA) has been discussed, but currently undecided. - will need to follow up outpatient with Surgery -pending insurance auth for LTAC. #Atrial fibrillation w/ RVR #Acute systolic and diastolic dysfunction w/ mildly reduced EF [40-45%] -12/22 echocardiogram showed reduced EF of 45% -Episodes of A fib w/ RVR during ICU. CHADS-VASc score 3 (female, CHF, hypertension) Plan: -Patient on Amiodarone PO -per EGD and cololoscopy note -no active bleeding -started Apixaban 5 BID #YOU 2/2 Distributive Shockresolved #ATN -On admission, BUN:14, Cr: 1.8 (baseline 0.7), eGFR:33 -Likely combination of pre-renal and intrinsic cause of YOU due to distributive shock and infection. -Hemodialysis sessions: 12/24, 12/26, 12/27, 12/29, 12/31, 01/01 Plan: -Given stability, hemodialysis unlikely -Strict I's & O's -Avoid nephrotoxins -Renally dose medications #GI bleed R/O #Anemia, Microcytic -Patient has Chronic Anemia with trending down hemoglobin. -Throughout stay in ICU, risk of stress ulcers with thrombocytopenia, coagulopathy, intubation, critical illness. -Received total 3 Blood transfusions -EGD 01/02 showed gastritis and no bleeding -Colonoscopy 01/04 showed internal hemorrhoids with normal colon -Current Hgb: 9.0 Plan: -Continue to monitor Hgb and sign of bleeding #Necrotic distal digits -Necrosis of distal right fingers, distal left middle finger, and distal right toes. -Likely due to prolonged usage of high dose pressors during events of shock. -Bilateral upper extremity duplex US (01/03) showed no occlusive arterial disease. Plan: -Per general surgery, continue to monitor. #Acute respiratory failure with Hypoxia -Resolved #2/2 Severe Metabolic acidosis - Resolved -Patient discontinued intubation on 01/04 #Thrombocytopenia- Resolved #Hyperglycemia- Resolved #Constipation- Resolved Disposition: Tele Diet: Consistent Carbohydrate GI prophylaxis: IV protonix DVT prophylaxis:Eliquis 5 BID Code: DNR Assessment and plan discussed with my attending physician Dr. Juancarlos Avelar (PGY-1) - Internal medicine resident Attending Provider Attestation/Addendum I have examined the patient, reviewed labs and imaging findings, discussed the case with the resident(s), and reviewed entered orders. I agree with the plan of care as outlined in this note. Time Spent: [address] Juancarlos MD
--- NOTE | 2025-01-13 12:54 | PC.SS ---
SS follow up note; SS was contacted by [facility] services which provided ETA for 3PM-3:15PM. SS contacted patient's nurse and contacted her as well as Gabby from [facility].
== END 2025-01-13 15:20 | disposition skilled nursing facility (03) | DRG 870 ==
LOC: SERX 17:01 → SERHOLD 17:19 → S2SX 12-23 05:50 → S2NX 12-23 05:50 → S2SX 01-04 05:51 → S2NX 01-05 16:47 → S3SX 01-11 16:33
PROVIDERS: Internal Medicine; Nurse Practitioner Family; Specialist; Student in an Organized Health Care Education/Training Program; Admitting Provider Student in an Organized Health Care Education/Training Program; Emergency Provider Emergency Medicine; PCP Family Medicine; Visit Provider Student in an Organized Health Care Education/Training Program
PROC: 0DJ08ZZ Inspection of Upper Intestinal Tract, Via Natural or Artificial Opening Endoscopic (ICD-10-PCS; CPT 43239; principal; 2025-01-02 17:30)
PROC: 0DJD8ZZ Inspection of Lower Intestinal Tract, Via Natural or Artificial Opening Endoscopic (ICD-10-PCS; CPT 45378; principal; 2025-01-04 17:00)
DX: A40.0 Sepsis due to streptococcus, group A (principal); A48.3 Toxic shock syndrome; D65 Disseminated intravascular coagulation [defibrination syndrome]; G93.41 Metabolic encephalopathy; J96.01 Acute respiratory failure with hypoxia; J18.9 Pneumonia, unspecified organism; K20.91 Esophagitis, unspecified with bleeding; N17.0 Acute kidney failure with tubular necrosis; R65.21 Severe sepsis with septic shock; Z68.43 Body mass index [BMI] 50.0-59.9, adult; N39.0 Urinary tract infection, site not specified; L03.116 Cellulitis of left lower limb; R17 Unspecified jaundice; E11.52 Type 2 diabetes mellitus with diabetic peripheral angiopathy with gangrene; E87.1 Hypo-osmolality and hyponatremia; E87.4 Mixed disorder of acid-base balance; I48.92 Unspecified atrial flutter; I50.22 Chronic systolic (congestive) heart failure; J44.0 Chronic obstructive pulmonary disease with (acute) lower respiratory infection; K56.7 Ileus, unspecified; L03.115 Cellulitis of right lower limb; Z68.44 Body mass index [BMI] 60.0-69.9, adult; I47.10 Supraventricular tachycardia, unspecified; I89.0 Lymphedema, not elsewhere classified; E11.9 Type 2 diabetes mellitus without complications; I10 Essential (primary) hypertension; Z99.3 Dependence on wheelchair; G40.909 Epilepsy, unspecified, not intractable, without status epilepticus; E66.01 Morbid (severe) obesity due to excess calories; D50.0 Iron deficiency anemia secondary to blood loss (chronic); R23.0 Cyanosis; Z79.4 Long term (current) use of insulin; I95.9 Hypotension, unspecified; L89.159 Pressure ulcer of sacral region, unspecified stage; D69.59 Other secondary thrombocytopenia; E11.621 Type 2 diabetes mellitus with foot ulcer; E11.65 Type 2 diabetes mellitus with hyperglycemia; E83.39 Other disorders of phosphorus metabolism; E83.52 Hypercalcemia; I11.0 Hypertensive heart disease with heart failure; K64.8 Other hemorrhoids; R13.10 Dysphagia, unspecified; Z51.5 Encounter for palliative care; Z66 Do not resuscitate; Z79.01 Long term (current) use of anticoagulants; Z79.899 Other long term (current) drug therapy; Z89.611 Acquired absence of right leg above knee; Z89.612 Acquired absence of left leg above knee; Z99.2 Dependence on renal dialysis; Z88.5 Allergy status to narcotic agent; I48.0 Paroxysmal atrial fibrillation; I87.2 Venous insufficiency (chronic) (peripheral); I25.2 Old myocardial infarction; Z88.0 Allergy status to penicillin; Z88.6 Allergy status to analgesic agent; Z88.8 Allergy status to other drugs, medicaments and biological substances; I44.1 Atrioventricular block, second degree; I27.20 Pulmonary hypertension, unspecified; K57.30 Diverticulosis of large intestine without perforation or abscess without bleeding; K29.70 Gastritis, unspecified, without bleeding
CPT/HCPCS: 36415; 36600; 70450; 71045; 73590; 73700; 74018; 74176; 80053; 80061; 80069; 80074; 80162; 80202; 81001; 82436; 82550; 82570; 82803; 83036; 83540; 83550; 83605; 83735; 83880; 84100; 84133; 84145; 84300; 84443; 85007; 85014; 85018; 85025; 85027; 85379; 85384; 85610; 85730; 86706; 86850; 86900; 86901; 86923; 86965; 87040; 87077; 87081; 87086; 87186; 87205; 92526; 92610; 93005; 93306; 93930; 93970; 94002; 94003; 94640; 94660; 94664; 94762; 96365; 96366; 96375; 97162; 99285; A4216; A4314; A4649; A9270; J0283; J0692; J0696; J0736; J1120; J1160; J1171; J1561; J1568; J1643; J1644; J1720; J1815; J2185; J2250; J2470; J2598; J2704; J2760; J3010; J3370; J3373; J3475; J3480; J3490; J7030; J7050; J7120; J7168; J7999; P9016; P9047; S0077; J0737; J1805; P0947